=== PATIENT | female | born 1945 | race Caucasian/White ===

== ENCOUNTER 2016-05-27 21:29 | Emergency (ER) | END 2016-05-28 03:00 | disposition left against medical advice (07) | DX: Z53.21 Procedure and treatment not carried out due to patient leaving prior to being seen by health care provider (principal) ==

== ENCOUNTER 2016-05-29 09:26 | Inpatient (IN) | payer MEDICARE, BC ==
[~2016-05-29] VITALS: Ht 157.5 cm; Wt 60.6 kg
[~2016-05-29 09:26] MED LIST: AMLO-147 PO; APR50 PO; ASPI-664 PO; BIMA2.5D BOTH EYES; CALC667C PO; CLON-379 PO; DOCU100T PO; FLUO20CA22 PO; GABA100C14 PO; HYDR2TAB3 PO; LANT3I SC; LOSA50TA6 PO; METH500T8 PO; METO10TA92 PO; OMEP20CA16 PO; ONDA8TAB83 PO; SEVE800T7 PO
[2016-05-29] MEDS ORDERED: ACETAMINOPHEN 650MG/20.3ML CUP NGT STA (09:40)
[2016-05-29] MEDS ORDERED: SOD CHLORIDE 0.9% 500 ML IV ONE (10:00)
[2016-05-29 10:43] LABS: BASOPHILS % 0.1 % (0.0-2.0); EOSINOPHILS % 0.1 % (0.0-7.0); HEMATOCRIT 36.3 % (37.0-47.0); HEMOGLOBIN 12.4 g/dl (12.0-16.0); LYMPHOCYTES # 0.7 10^3/ul (0.8-2.9); LYMPHOCYTES % 4.9 % (15.0-51.0); MEAN CORPUSCULAR HEMOGLOBIN 31.4 pg (29.0-33.0); MEAN CORPUSCULAR HGB CONC 34.2 g/dl (32.0-37.0); MEAN CORPUSCULAR VOLUME 91.8 fl (82.0-101.0); MEAN PLATELET VOLUME 8.9 fl (7.4-10.4); MONOCYTE # 0.9 10^3/ul (0.3-0.9); MONOCYTES % 6.5 % (0.0-11.0); NEUTROPHIL # 12.7 10^3/ul (1.6-7.5); NEUTROPHILS % 88.4 % (39.0-77.0); PLATELET COUNT 425 10^3/UL (140-440); RED BLOOD COUNT 3.96 10^6/ul (4.20-5.40); RED CELL DISTRIBUTION WIDTH 16.6 % (11.5-14.5); UNCORRECTED WBC 14.4 10^3/ul (4.8-10.8); WHITE BLOOD COUNT 14.4 10^3/ul (4.8-10.8)
[2016-05-29 10:47] LABS: CONDITION 1; LH ANALYZER COMMENTS 1
[2016-05-29 10:48] LABS: ALBUMIN 4.5 g/dl (3.3-4.9)
[2016-05-29 10:49] LABS: POTASSIUM 5.2 mmol/L (3.5-5.1)
[2016-05-29 10:51] LABS: ALBUMIN/GLOBULIN RATIO 1.28; CREATININE 10.2 mg/dl (0.44-1.00)
[2016-05-29 10:52] LABS: CALCIUM 8.1 mg/dl (8.4-10.2); INR 1.08; PARTIAL THROMBOPLASTIN TIME 29.2 Sec (25.0-35.0); PT RATIO 1.1
--- NOTE | 2016-05-29 10:56 | RADRPT ---
PROCEDURE: XR Chest. CLINICAL INDICATION: Chest pain TECHNIQUE: Chest AP portable. COMPARISON: 09/15/2015 FINDINGS: The mediastinal structures are unremarkable. There is calcification of the thoracic aorta (consiste nt with atherosclerosis). There is mild cardiomegaly. There is mild pulmonary venous hypertension. No consolidation is identified. The pleural spaces are unremarkable. There are senescent changes of the axial skeleton. IMPRESSION: Mild cardiomegaly. Mild pulmonary venous hypertension. RPTAT: HGDB .Cecilio Fong MD, Date Time Electronically viewed and signed by .Cecilio Fong MD, on 05/29/2016 10:56 .B/
[2016-05-29 11:10] LABS: TROPONIN-I 0.134 ng/ml (0.00-0.12)
--- NOTE | 2016-05-29 11:31 | RADRPT ---
PROCEDURE: CT scan of the neck without contrast. CLINICAL INDICATION: Fever, throat pain TECHNIQUE: CT scan of the neck was performed. The patient was examined without the use of intrave nous iodinated contrast. No reported complications occurred. DOSE: CTDI = 11 mGy and the DLP = 257 mGy-cm. COMPARISON: None available FINDINGS: Evaluation of the soft tissues and vasculature is limited without contrast. No loculated fluid collection or cervical lymphadenopathy. The bilateral parotid and submandibular glands are grossly unremarkable No significant narrowing of the larynx The bilateral parapharyngeal spaces and retropharyngeal space s are unremarkable. The visualized paranasal sinuses and mastoids are clear. Multinodular thyroid gland with prominent enlargement of the left thyroid lobe. Endplate erosive changes are seen at C5-6. Mass-like consolidation measuring 6.0 x 4.6 cm in the medial right upper lobe with air bronchogram. There appears to be soft tissue infiltration into the right hilum/mediastinum. Additional prominen t mediastinal lymph nodes are identified. IMPRESSION: No gross loculated fluid collection or cervical lymphadenopathy on this noncontrast exam. Mass-like consolidation in the medial right upper lobe with air bronchogram. There appears to be so ft tissue infiltration into the right hilum/mediastinum. The findings are concerning for an underlyi ng right hilar/mediastinal mass with postobstructive consolidation. Recommend chest CT with contras t for further evaluation. Endplate erosive changes are seen at C5-6 which could be due to discogenic disease, however, osteomy elitis cannot be entirely excluded. If clinically warranted, consider MRI of the cervical spine wit h and without contrast for further evaluation. RPTAT: AA .Graham Florian MD, Date Time Electronically viewed and signed by .Graham Florian MD, MD on 05/29/2016 11:31 .T/
--- NOTE | 2016-05-29 12:45 | ERA ---
ER Documentation Chief Complaint Date/Time DATE: 05/29/16 TIME: 12:38 Chief Complaint sick x today HPI Patient is a 71-year-old female who reports a sore throat with odynophagia for the last 2-3 days. She had a low-grade fever yesterday. She saw her primary care physician who placed her on Augmentin yesterday. She took only 1 pill yesterday and has not taken it today. She comes in today because this morning when she awoke she had left-sided weakness of the upper extremity and lower extremity which was new. When she went to bed she was normal this was present upon awakening this morning. They do not know when the onset was. She denies any headache, visual changes, slurred speech, chest pain, shortness of breath, nausea, vomiting, abdominal pain, diarrhea, dysuria, or hematuria. She states that she had a stroke about 5-6 months ago which also affected the left side however she completely recovered from that stroke. These are very similar symptoms. On arrival here she is already improving. In regards to the sore throat and midline aphasia she cannot swallow solids but she can swallow liquids. It is making her feel somewhat short of breath however she is not in any respiratory distress. She has had a dry nonproductive cough as well. Here she is also experiencing a higher fever than yesterday. She is also a dialysis patient who is due for her dialysis as she missed it yesterday. Remainder of the systems are negative. ROS All systems reviewed and are negative except as per history of present illness. Medications Home Meds Active Scripts Metoclopramide* (Reglan*) 10 Mg Tablet, 10 MG PO AC MEALS AND BEDTIME Y for NAUSEA, #50 TAB Prov:OLGA LIDIA FENTON MD 09/24/15 Clonidine Hcl* (Clonidine Hcl*) 0.1 Mg Tab, 0.1 MG PO TID for 28 Days, TAB Prov:MICHELLE MCDANIEL MD 06/22/15 Hydralazine Hcl* (Hydralazine Hcl*) 50 Mg Tab, 50 MG PO TID, #180 TAB Prov:OLGA LIDIA FENTON MD 06/20/14 Reported Medications Sevelamer Carbonate* (Renvela*) 800 Mg Tablet, 0.8 GM PO WITH MEALS, TAB 09/15/15 Bimatoprost* (Lumigan*) 0.01%-2.5 Ml Opht Drops, 1 DROP BOTH EYES HS, EA 09/15/15 Hydromorphone Hcl* (Hydromorphone Hcl*) 2 Mg Tablet, 2 MG PO Q4H Y for PAIN, TAB 09/15/15 Methocarbamol* (Methocarbamol*) 500 Mg Tablet, 500 MG PO DAILY, TAB 09/15/15 Ondansetron Hcl* (Ondansetron Hcl*) 8 Mg Tablet, 8 MG PO Q6H Y for NAUSEA AND OR VOMITING, TAB 08/29/15 Calcium Acetate* (Calcium Acetate*) 667 Mg Capsule, 667 MG PO WITH MEALS, #30 CAP 08/29/15 Docusate Sodium* (Dok*) 100 Mg Tablet, 100 MG PO DAILY Y for CONSTIPATION, #30 CAP 08/29/15 Insulin Glargine* (Lantus*) 100 Unit/Ml Soln, 0-25 UNIT SC DAILY, #1 VIAL 08/29/15 Fluoxetine Hcl* (Fluoxetine Hcl*) 20 Mg Capsule, 20 MG PO DAILY 08/15/15 Losartan Potassium* (Losartan Potassium*) 50 Mg Tablet, 50 MG PO DAILY 08/15/15 Omeprazole* (Omeprazole*) 20 Mg Capsule.dr, 20 MG PO DAILY, #30 CAP 06/05/15 Amlodipine Besylate* (Amlodipine Besylate*) 10 Mg Tablet, 10 MG PO DAILY, #30 TAB 06/05/15 Gabapentin* (Gabapentin*) 100 Mg Capsule, 100 MG PO TID 08/08/13 Aspirin (Aspirin) 81 Mg Tablet.dr, 81 MG PO DAILY 11/26/12 Allergies Allergies: Coded Allergies: No Known Drug Allergies (Verified Allergy, Unknown, 09/19/15) PMhx/Soc History of Surgery: Yes (CATRACT SX) Anesthesia Reaction: No Hx Neurological Disorder: No Hx Respiratory Disorders: No Hx Cardiac Disorders: Yes (HTN) Hx Psychiatric Problems: Yes (DEPRESSION) Hx Miscellaneous Medical Probl: Yes (DM) Hx Alcohol Use: No Hx Substance Use: No Hx Tobacco Use: No Smoking Status: Never smoker FmHx Family History: coronary disease, diabetes Physical Exam Vitals Vital Signs Date Time Temp Pulse Resp B/P Pulse Ox O2 Delivery O2 Flow Rate FiO2 05/29/16 13:45 98.6 86 16 130/61 99 05/29/16 11:42 100.2 80 16 134/61 99 2.0 05/29/16 10:01 Nasal Cannula 2 05/29/16 09:30 102.4 90 20 158/68 99 Physical Exam Const: [] Well-developed well-nourished female lying on the bed appears chronically ill Head: Atraumatic normocephalic Eyes: Normal Conjunctiva ENT: Normal External Ears, Nose and Mouth., Posterior pharynx is slightly erythematous but I do not appreciate any significant edema or asymmetric swelling, she is tolerating her secretions, there is no purulence noted. Neck: Full range of motion..~ No meningismus. No lymphadenopathy Resp: Clear to auscultation bilaterally, poor inspiratory effort no tachypnea Cardio: Regular rate and rhythm, no murmurs Abd: Soft, non tender, non distended. Normal bowel sounds Skin: No petechiae or rashes Back: No midline or flank tenderness Ext: No cyanosis, or edema Neur: Awake and alert oriented 3, moves all extremities equally, cranial nerves II through XII are grossly intact, strength is 4 out of 5 and equal in both upper and lower extremities. It appears that her left-sided weakness has completely resolved Psych: Normal Mood and Affect Result Diagram: 05/29/16 0930 05/29/16 0930 Results 24 hrs Laboratory Tests Test 05/29/16 09:30 05/29/16 12:00 05/29/16 13:41 Activated Partial Thromboplast Time 29.2Sec Alanine Aminotransferase (ALT/SGPT) 21IU/L Albumin 4.5g/dl Albumin/Globulin Ratio 1.28 Alkaline Phosphatase 158IU/L Anion Gap 35 Aspartate Amino Transf (AST/SGOT) 33IU/L Basophils # 0.010^3/ul Basophils % 0.1% Blood Morphology Comment Blood Urea Nitrogen 91mg/dl Calcium Level 8.1mg/dl Carbon Dioxide Level 23mmol/L Chloride Level 85mmol/L Creatinine 10.20mg/dl Direct Bilirubin 0.00mg/dl Eosinophils # 0.010^3/ul Eosinophils % 0.1% Globulin 3.50g/dl Glucose Level 194mg/dl Hematocrit 36.3% Hemoglobin 12.4g/dl INR International Normalized Ratio 1.08 Indirect Bilirubin 0.0mg/dl Lactic Acid Level 1.4mmol/L 0.8mmol/L 0.9mmol/L Lymphocytes # 0.710^3/ul Lymphocytes % 4.9% Mean Corpuscular Hemoglobin 31.4pg Mean Corpuscular Hemoglobin Concent 34.2g/dl Mean Corpuscular Volume 91.8fl Mean Platelet Volume 8.9fl Monocytes # 0.910^3/ul Monocytes % 6.5% Monoscreen Negative Neutrophils # 12.710^3/ul Neutrophils % 88.4% Nucleated Red Blood Cells # 0.010^3/ul Nucleated Red Blood Cells % 0.0/100WBC Platelet Count 16512^3/UL Potassium Level 5.2mmol/L Prothrombin Time 14.0Sec Prothrombin Time Ratio 1.1 Red Blood Count 3.9610^6/ul Red Cell Distribution Width 16.6% Sodium Level 138mmol/L Total Bilirubin 0.0mg/dl Total Protein 8.0g/dl Troponin I 0.134ng/ml White Blood Count 14.410^3/ul Current Medications Medications (Trade) Dose Ordered Sig/Leanne Route PRN Reason Start Time Stop Time Status Last Admin Dose Admin Acetaminophen 650 mg 650 mg ONCE STAT NGT 05/29/16 09:40 05/29/16 09:42 DC 05/29/16 10:20 Sodium Chloride (NS) 500 ml @ 500 mls/hr Q1H ONCE IV 05/29/16 10:00 05/29/16 10:59 DC 05/29/16 10:[address] of her brain shows microangiopathic changes without any evidence of acute ischemia per the radiologist read Patient's CT of her chest shows a right upper lobe mass suspicious for neoplasm with right perihilar lymphadenopathy. Procedures/MDM EKG shows a normal sinus rhythm at approximately 90 bpm, there is slight QT prolongation, no evidence for acute ischemia noted, no old EKG available for comparison. Chest x-ray shows cardiomegaly without any obvious vascular congestion or infiltrate noted CT of the neck demonstrates no obvious masses or lymphadenopathy, no posterior swelling of the throat 1445: Patient is afebrile at this time. She does not exhibiting left-sided weakness. She is not exhibiting any acute respiratory distress. I have a call to Dr. Mcdaniel to admit her for her fever, right upper lobe mass, and renal failure. They can also further evaluate her for her possible TIA and difficulty swallowing. Departure Diagnosis: Primary Impression: Fever Qualified Code: R50.9 - Fever, unspecified fever cause Additional Impressions: Lung mass Renal failure Odynophagia Hypertension Qualified Code: I10 - Essential hypertension Condition: LOULOU Ibarra May 29, 2016 12:45
--- NOTE | 2016-05-29 13:28 | RADRPT ---
PROCEDURE: CT Brain without contrast. CLINICAL INDICATION: Trauma due to a fall. Left-sided weakness. TECHNIQUE: A CT of the brain without contrast was performed utilizing axial sections from the skul l base through the vertex. The patient was scanned without intravenous contrast enhancement. Sagitta l and coronal reformatted images were obtained using the data from the axial images. Total exam DLP is 720.23 mGy-cm. CTDIvol is 44.63 mGy. One or more of the following dose reduction techniques we re used: Automated exposure control, adjustment of the mA and/or kV according to patient size, use o f iterative reconstruction technique. COMPARISON: CT scan of the brain dated 06/30/2015. FINDINGS: There is normal [place]-white matter differentiation. There is enlargement of the ventricles and subarachnoid spaces consistent with atrophy. There is decreased attenuation of the periventricular white matter consistent with microangiopathic ischemic change. There is no intracranial hemorrhage or space-occupying lesion. There are vascular calcifications consistent with atherosclerosis. There is no skull fracture or lytic lesion. IMPRESSION: 1. Atrophy. 2. Microangiopathic ischemic change. 3. Atherosclerosis. 4. No intracranial hemorrhage. 5. Otherwise unremarkable noncontrast CT scan of the brain. RPTAT: QQ .Santosh Pugh MD, MD Date Time Electronically viewed and signed by .Santosh Pugh MD, on 05/29/2016 13:28 .R/
--- NOTE | 2016-05-29 14:21 | RADRPT ---
PROCEDURE: CT Chest Without Contrast CLINICAL INDICATION: Mass in chest TECHNIQUE: Volumetric acquisition of the thorax was performed without the intravenous administrati on of contrast. Radiation Dose: CTDI = 10.72 mGy; DLP = 374.80 mGy-cm. COMPARISON: None. FINDINGS: Lung payton: There is mass-like consolidation of the medial right upper lobe which contains air bron chograms and envelopes the anterior and apical segmental bronchi. This extends into the mediastinum just superior to the right mainstem bronchus. There is subsegmental atelectasis within the posteri or right upper lobe, within the lingular segment of the left upper lobe, and discoid atelectasis is seen within the lower lobes. A 3 mm calcified granuloma is seen in the left upper lobe. The pleural spaces: No effusion or pneumothorax is identified. Lymph nodes: There is a 1.2 cm in short diameter precarinal node and pretracheal nodes up to 9 mm in short diameter are identified. There is right hilar fullness suspicious for adenopathy measuring a pproximately 1.7 cm in short diameter. Cardiovascular structures: The heart is mildly enlarged and there is coronary artery disease. The a radha is normal in caliber with atherosclerotic change noted. Thyroid: There is a 3.5 x 2.2 cm nodule extending inferiorly and posteriorly off the left lobe of th e thyroid. Multiple coarse calcifications are seen within the right lobe and isthmus. Superior abdominal structures: No significant abnormality is evident. Osseous structures: There is anterior osteophytic bridging seen to the thoracic spine suspicious for diffuse idiopathic skeletal hyperostosis. IMPRESSION: 1. There is mass-like consolidation within the medial right upper lobe enveloping the right upper l obe anterior and apical segmental bronchi and extending into the mediastinum superior to the right m ainstem bronchus. This is suspicious for neoplasm. A 3 mm calcified granuloma is seen within the le ft upper lobe. 2. Precarinal, pretracheal and right hilar adenopathy. 3. Subsegmental atelectasis seen within the posterior aspect of the right upper lobe and within the lingular segment of the left upper lobe with discoid atelectasis seen in the lower lobes. 4. Mild cardiomegaly with atherosclerotic vascular changes. 5. 3.5 x 2.2 cm mass is seen extend inferiorly and posteriorly off the lower pole left lobe of the thyroid with coarse calcifications seen in the right lobe and isthmus. 6. Degenerative spine changes. Physician David Date Time Electronically viewed and signed by Meena Baugh Physician on 05/29/2016 14:21 RH/
[2016-05-29] MEDS ORDERED: ACETAMINOPHEN 325 MG TAB PO PRN (15:00)
[2016-05-29] MEDS ORDERED: ONDANSETRON 4 MG INJ IV PRN (15:00)
--- NOTE | 2016-05-29 17:29 | QN ---
Documentation Comment [id number] MICHELLE MCDANIEL MD May 29, 2016 17:29
[2016-05-29] MEDS ORDERED: DOCUSATE SODIUM 100 MG CAP PO PRN ×2 (18:00)
[2016-05-29] MEDS ORDERED: ONDANSETRON 4 MG TAB PO PRN (18:00)
[2016-05-29] MEDS ORDERED: BISACODYL (EC) 5 MG TAB PO PRN (18:00)
[2016-05-29] MEDS ORDERED: NACL 0.9% 3 ML SYG IV SCH (18:00)
[2016-05-29] MEDS ORDERED: MAGNESIUM HYDROXIDE 30ML CUP PO PRN (18:00)
[2016-05-29] MEDS ORDERED: ACETAMINOPHEN 650MG/20.3ML CUP ONE (18:23)
[2016-05-29] MEDS ORDERED: DEXTROSE 50% 50 ML SYRINGE IV PRN ×2 (19:00)
[2016-05-29] MEDS ORDERED: GLUCOSE GEL 15 GRAM TUBE BUCCAL PRN (19:00)
[2016-05-29] MEDS ORDERED: GLUCAGON 1 MG INJ IM PRN (19:00)
[2016-05-29] MEDS ORDERED: GLUCOSE GEL 15 GRAM TUBE PO PRN ×2 (19:00)
[2016-05-29] MEDS ORDERED: ACETAMINOPHEN 1000MG/100ML IV 100 ML IVPB ONE (19:00)
[2016-05-29] MEDS: ALBUTEROL/IPRATROPIUM (NEB) 3 ML AMP INH SCH (19:45)
--- NOTE | 2016-05-29 19:51 | HP ---
DATE OF ADMISSION: 05/29/2016 HISTORY OF PRESENT ILLNESS: Shelia Lipscomb is a 71-year-old female with a history of hematemesis, history of EGD, history of hypertension, ESRD. The patient has history of hypertension, dyslipidemia, diabetes mellitus, presented to this hospital with shortness of breath. Patient in the ER was seen. The patient's blood pressure was 157/78. Patient had a WBC 14.4, hematocrit 36.3, potassium 5.2, creatinine 10.20. Troponin 0.134 and patient is going to be monitored for further management. PAST MEDICAL HISTORY: As mentioned above. Upper gastrointestinal bleed, ESRD, hypertension, diabetes mellitus, dyslipidemia, and right upper extremity. ALLERGY HISTORY: NEGATIVE. FAMILY HISTORY: Negative. SOCIAL HISTORY: Per patient are negative. MEDICATION HISTORY: Patient is on: 1. Amlodipine. 2. Aspirin. 3. Eyedrops. 4. Calcium acetate. 5. Clonidine. 6. Docusate sodium. 7. Fluoxetine. 8. Gabapentin. 9. Hydralazine. 10. Hydromorphone. 11. Insulin. 12. Losartan. 13. Methocarbamol. 14. Reglan. 15. Omeprazole. 16. Zofran. 17. Renvela. REVIEW OF SYSTEMS: HEENT: Unremarkable. RESPIRATORY: Short of breath. CARDIOVASCULAR: No chest pain, palpitation. ABDOMEN: No hematemesis or melena. EXTREMITIES: On and off swelling. PHYSICAL EXAMINATION: GENERAL: The patient is awake, alert. VITAL SIGNS: Pulse 86, blood pressure 157/78. HEAD: Atraumatic, normocephalic. Pupils are equal, reactive to light. Pale conjunctivae positive, no icterus. NECK: Supple. LUNGS: Clear anteriorly with basilar rales. CARDIOVASCULAR: S1, S2 normal. Systolic murmur noted. ABDOMEN: Soft, distended, bowel sounds present. No palpable mass. EXTREMITIES: No cyanosis, clubbing. Edema positive. CENTRAL NERVOUS SYSTEM: The patient is awake, alert, no focal deficit. LABORATORY DATA: As mentioned above. The patient has a chest x-ray that shows mild pulmonary venous hypertension. The patient has a CT scan of the neck. No gross focal fluid collections. Mass-like consolidation of the medial right upper lobe with air bronchogram. Brain CT scan shows atrophy, microangiopathic ischemic changes, atherosclerosis. There is a CT chest shows there is a mass- like consolidation in the medial right upper lobe, cardiomegaly, DJD. IMPRESSION: 1. Patient has pneumonia. 2. Lung mass. 3. Pulmonary edema. 4. The patient has hypertension, diabetes mellitus, leukocytosis, , anemia, atherosclerotic heart disease, positive troponin. PLAN: To obtain cardiology consultation and pulmonary consultation. Oxygen, bronchodilator and antibiotics. Hemodialysis orders were done. Dictated By: MICHELLE MCDANIEL MD BS/NTS Conf#: [id number] DID#: [id number]
[2016-05-29 21:12] LABS: CK-MB 3.41 ng/ml (0.0-2.4)
[2016-05-29 21:21] LABS: TROPONIN-I 0.217 ng/ml (0.00-0.12)
[2016-05-29] MEDS: CALCIUM ACETATE 667 MG CAP PO SCH (21:23)
[2016-05-29] MEDS: LATANOPROST 0.005% 2.5 ML OPH BOTH EYES SCH (21:24)
[2016-05-29] MEDS: GABAPENTIN 100 MG CAP PO SCH (21:24)
[2016-05-29] MEDS: PIPER-TAZO 2.25 GM (PMX) 50 ML IVPB SCH (21:34)
[2016-05-29] MEDS: INSULIN ASPART [NOVOLOG] 3 ML PEN SC SCH (21:40)
[2016-05-29 21:46] VITALS: TEMP 99.7
[2016-05-29 22:20] VITALS: BP 117/64; PULSE 80; RESP 18
[2016-05-29 22:39] VITALS: Ht 157.5 cm; Wt 60.6 kg
[2016-05-29 22:44] VITALS: PULSE 81
[2016-05-30] VITALS (30 sets, daily range): BP systolic 110–198; BP diastolic 40–113; PULSE 80–123; RESP 19–20
[2016-05-30 01:49] LABS: CK-MB 4.06 ng/ml (0.0-2.4)
[2016-05-30] MEDS: ALBUTEROL/IPRATROPIUM (NEB) 3 ML AMP INH SCH ×4 (01:50→21:35)
[2016-05-30 02:00] LABS: TROPONIN-I 0.293 ng/ml (0.00-0.12)
[2016-05-30] MEDS: ACETAMINOPHEN 325 MG TAB PO PRN (02:17)
[2016-05-30] MEDS: PANTOPRAZOLE (EC) 40 MG TAB PO SCH (05:49)
[2016-05-30 08:00] LABS: HEMATOCRIT 32.4 % (37.0-47.0); HEMOGLOBIN 11.1 g/dl (12.0-16.0); LYMPHOCYTES # 0.4 10^3/ul (0.8-2.9); LYMPHOCYTES % 2.4 % (15.0-51.0); MEAN CORPUSCULAR HEMOGLOBIN 31.5 pg (29.0-33.0); MEAN CORPUSCULAR HGB CONC 34.4 g/dl (32.0-37.0); MEAN CORPUSCULAR VOLUME 91.8 fl (82.0-101.0); MEAN PLATELET VOLUME 8.5 fl (7.4-10.4); MONOCYTE # 0.6 10^3/ul (0.3-0.9); MONOCYTES % 3.6 % (0.0-11.0); NEUTROPHIL # 16.4 10^3/ul (1.6-7.5); PLATELET COUNT 303 10^3/UL (140-440); RED BLOOD COUNT 3.53 10^6/ul (4.20-5.40); RED CELL DISTRIBUTION WIDTH 16.2 % (11.5-14.5); UNCORRECTED WBC 17.5 10^3/ul (4.8-10.8); WHITE BLOOD COUNT 17.5 10^3/ul (4.8-10.8)
[2016-05-30 08:20] LABS: ALBUMIN 3.8 g/dl (3.3-4.9)
[2016-05-30 08:21] LABS: POTASSIUM 4.1 mmol/L (3.5-5.1)
[2016-05-30 08:23] LABS: ALBUMIN/GLOBULIN RATIO 1.18; CREATININE 8.01 mg/dl (0.44-1.00)
[2016-05-30 08:24] LABS: CALCIUM 8.2 mg/dl (8.4-10.2)
[2016-05-30 08:38] LABS: CONDITION 1; LH ANALYZER COMMENTS 1; SUSPECT 1
[2016-05-30] MEDS: AMLODIPINE 10 MG TAB PO SCH (09:00)
[2016-05-30] MEDS: LOSARTAN 50 MG TAB PO SCH (09:00)
[2016-05-30] MEDS ORDERED: ASPIRIN (EC) 81 MG TAB PO SCH (09:00)
[2016-05-30] MEDS: CALCIUM ACETATE 667 MG CAP PO SCH ×3 (09:01→17:12)
[2016-05-30] MEDS: SEVELAMER CARBONATE 0.8 GM PKT PO SCH ×3 (09:03→17:12)
[2016-05-30] MEDS: GABAPENTIN 100 MG CAP PO SCH ×3 (09:05→21:00)
[2016-05-30] MEDS: METHOCARBAMOL 500 MG TAB PO SCH (09:06)
[2016-05-30] MEDS: FLUOXETINE 20 MG CAP PO SCH (09:06)
[2016-05-30] MEDS: INSULIN ASPART [NOVOLOG] 3 ML PEN SC SCH ×4 (09:08→20:23)
[2016-05-30] MEDS ORDERED: hydrALAzine 20 MG INJ IV PRN (09:30)
[2016-05-30] MEDS ORDERED: GENTAMICIN 80 MG/NS (PMX) 50 ML IVPB ONE (10:30)
[2016-05-30] MEDS ORDERED: VANCOMYCIN 1 GM (PMX) 250 ML IVPB ONE (10:30)
[2016-05-30] MEDS: PIPER-TAZO 2.25 GM (PMX) 50 ML IVPB SCH ×3 (11:42→20:24)
[2016-05-30] MEDS: ENOXAPARIN 30 MG/0.3 ML SYG SC SCH (11:53)
[2016-05-30] MEDS: ACETAMINOPHEN 650 MG SUPP PR PRN ×2 (13:07→18:50)
--- NOTE | 2016-05-30 16:15 | PN ---
Date/Time of Note Date/Time of Note DATE: 05/30/16 TIME: 16:14 Assessment/Plan VTE Prophylaxis VTE Prophylaxis Intervention: other Lines/Catheters IV Catheter Type (from Nrs): Saline Lock Assessment/Plan Chief Complaint/Hosp Course IMPRESSION: 1. Patient has pneumonia. 2. Lung mass. 3. Pulmonary edema. 4. The patient has hypertension, diabetes mellitus, leukocytosis, , anemia, atherosclerotic heart disease, positive troponin. plan hd dr starkey called Problems: Subjective 24 Hr Interval Summary Respiratory: shortness of breath (better) Exam/Review of Systems Vital Signs Vitals Vital Signs Date Time Temp Pulse Resp B/P Pulse Ox O2 Delivery O2 Flow Rate FiO2 05/30/16 16:12 97 05/30/16 14:02 99.0 137/63 95 Nasal Cannula 2.0 05/30/16 13:55 20 Intake and Output 05/29/16 05/29/16 05/30/16 15:00 23:00 07:00 Intake Total 500 ml 740 ml Output Total 2500 ml Balance 500 ml -1760 ml Exam Respiratory: diminished breath sounds Cardiovascular: regular rate and rhythm Gastrointestinal: soft Musculoskeletal: nl extremities to inspection Extremities: normal pulses Results Result Diagram: 05/30/16 0710 05/30/16 0710 Results 24 hrs Laboratory Tests Test 05/29/16 18:19 05/29/16 20:30 05/29/16 21:33 05/30/16 00:40 Bedside Glucose 228 H 259 H Creatine Kinase 466 H 493 H Creatine Kinase Index 0.7 0.8 Creatinine Kinase MB (Mass) 3.41 H 4.06 H Troponin I 0.217 *H 0.293 *H Test 05/30/16 03:03 05/30/16 07:10 05/30/16 08:10 05/30/16 11:40 Bedside Glucose 195 177 188 Alanine Aminotransferase (ALT/SGPT) 23 Albumin 3.8 Albumin/Globulin Ratio 1.18 Alkaline Phosphatase 122 H Anion Gap 24 #H Aspartate Amino Transf (AST/SGOT) 42 Basophils # 0.0 Basophils % 0.0 Blood Morphology Comment Blood Urea Nitrogen 62 H Calcium Level 8.2 L Carbon Dioxide Level 26 Chloride Level 89 L Creatinine 8.01 #H Direct Bilirubin 0.00 Eosinophils # 0.0 Eosinophils % 0.0 Globulin 3.20 Glucose Level 188 Hematocrit 32.4 L Hemoglobin 11.1 L Indirect Bilirubin 0.0 Lymphocytes # 0.4 L Lymphocytes % 2.4 L Mean Corpuscular Hemoglobin 31.5 Mean Corpuscular Hemoglobin Concent 34.4 Mean Corpuscular Volume 91.8 Mean Platelet Volume 8.5 Monocytes # 0.6 Monocytes % 3.6 Neutrophils # 16.4 H Neutrophils % 94.0 H Nucleated Red Blood Cells # 0.0 Nucleated Red Blood Cells % 0.0 Platelet Count 303 # Potassium Level 4.1 Red Blood Count 3.53 L Red Cell Distribution Width 16.2 H Sodium Level 135 Total Bilirubin 0.0 L Total Protein 7.0 # White Blood Count 17.5 #H Medications Medications Current Medications Amlodipine Besylate (Norvasc) 10 mg DAILY PO ; Start 05/30/16 at 09:00 Aspirin (Halfprin) 81 mg DAILY PO Last administered on 05/30/16 09:03; Admin Dose 81 MG; Start 05/30/16 at 09:00 Latanoprost (Xalatan) 1 drop HS BOTH EYES Last administered on 05/29/16 21:24; Admin Dose 1 DROP; Start 05/29/16 at 21:00 Clonidine (Catapres) 0.1 mg TID PO Last administered on 05/30/16 13:08; Admin Dose 0.1 MG; Start 05/29/16 at 21:00 Fluoxetine HCl (Prozac) 20 mg DAILY PO Last administered on 05/30/16 09:06; Admin Dose 20 MG; Start 05/30/16 at 09:00 Gabapentin (Neurontin) 100 mg TID PO Last administered on 05/30/16 13:07; Admin Dose 100 MG; Start 05/29/16 at 21:00 Hydralazine HCl (Apresoline) 50 mg TID PO Last administered on 05/30/16 13:07; Admin Dose 50 MG; Start 05/29/16 at 21:00 Hydromorphone HCl (Dilaudid) 2 mg Q4H PRN PO PAIN; Start 05/29/16 at 18:00 Losartan Potassium (Cozaar) 50 mg DAILY PO ; Start 05/30/16 at 09:00 Methocarbamol (Robaxin) 500 mg DAILY PO Last administered on 05/30/16 09:06; Admin Dose 500 MG; Start 05/30/16 at 09:00 Ondansetron HCl (Zofran Tab) 8 mg Q6H PRN PO NAUSEA AND/OR VOMITING Last administered on 05/30/16 11:45; Admin Dose 8 MG; Start 05/29/16 at 18:00 Acetaminophen (Tylenol Tab) 650 mg Q6H PRN PO PAIN LEVEL 1-3 OR FEVER Last administered on 05/30/16 02:17; Admin Dose 650 MG; Start 05/29/16 at 18:00 Docusate Sodium (Colace) 100 mg Q12H PRN PO CONSTIPATION; Start 05/29/16 at 18: 00 Magnesium Hydroxide (Milk Of Mag) 30 ml DAILY PRN PO CONSTIPATION; Start at 18:00 Bisacodyl (Dulcolax) 5 mg DAILY PRN PO CONSTIPATION; Start 05/29/16 at 18:00 Pantoprazole (Protonix Tab) 40 mg DAILY@06 PO Last administered on 05/30/16 05: 49; Admin Dose 40 MG; Start 05/30/16 at 06:00 Enoxaparin Sodium 30 mg 30 mg DAILY SC Last administered on 05/30/16 11:53; Admin Dose 30 MG; Start 05/30/16 at 09:00 Piperacillin Sod/ Tazobactam Sod (Zosyn 2.25gm/ 50ml (Pmx)) 50 ml @ 100 mls/hr TID IVPB Last administered on 05/30/16 13:48; Admin Dose 100 MLS/HR; Start 05/29 at 21:00 Miscellaneous Information 1 ea NOTE XX ; Start 05/29/16 at 19:00 Glucose (Glutose) 15 gm Q15M PRN PO DECREASED GLUCOSE; Start 05/29/16 at 19:00 Glucose (Glutose) 22.5 gm Q15M PRN PO DECREASED GLUCOSE; Start 05/29/16 at 19:00 Dextrose (D50w Syringe) 25 ml Q15M PRN IV DECREASED GLUCOSE; Start 05/29/16 at 19:00 Dextrose (D50w Syringe) 50 ml Q15M PRN IV DECREASED GLUCOSE; Start 05/29/16 at 19:00 Glucagon (Glucagen) 1 mg Q15M PRN IM DECREASED GLUCOSE; Start 05/29/16 at 19:00 Glucose (Glutose) 15 gm Q15M PRN BUCCAL DECREASED GLUCOSE; Start 05/29/16 at 19: 00 Hydralazine HCl (Apresoline) 20 mg Q6H PRN IV sbp >170 Last administered on 05/30 09:21; Admin Dose 20 MG; Start 05/30/16 at 09:30 Acetaminophen (Tylenol Supp) 650 mg Q6H PRN [place] fever Last administered on 13:07; Admin Dose 650 MG; Start 05/30/16 at 10:30 MICHELLE MCDANIEL MD May 30, 2016 16:15
--- NOTE | 2016-05-30 17:34 | RADRPT ---
Echocardiogram Report Patient Name: KAVON PAL Gender: Female Date: 1945 Study Date: 30-May-2016 Agency Recruiter: Blake Glass [facility] Location: 5562 Ref. Physician: MICHELLE MCDANIEL Quality: Good Procedures: Transthoracic echocardiogram with complete 2D, M-Mode, and doppler examination. Indications: Coronary Artery Disease. 2D/M Mode Doppler Measurement Value Normal Ranges Measurement Value Normal Ranges LVIDd 2D 4.8 3.5 - 5.6 cm AV Mean Murali 1.7 m/sec LVIDs 2D 2.6 2.1 - 4.1 cm AV Mean PG 14.0 mmHg FS 2D 46.6 % AV Peak Murali 2.4 m/sec LVPWd 2D 1.0 0.6 - 1.1 cm AV Peak PG 23.0 mmHg IVSd 2D 1.0 0.6 - 1.1 cm AV VTI 41.1 cm IVS/LVPW 2D 0.9 LVOT Mean Murali 1.2 m/sec AoR Diam 2D 2.9 2.0 - 3.7 cm LVOT Mean PG 6.0 mmHg LA/Ao 2D 1 0 - 1 LVOT Peak Murali 1.6 m/sec EDV 2D 111.0 cm3 LVOT Peak PG 10.0 mmHg ESV 2D 17.0 cm3 LVOT VTI 28.4 cm LA Dimen 2D 3.6 2.3 - 4.0 cm MV E Peak Murali 0.9 m/sec MV A Peak Murali 1.4 m/sec MV E/A 0.6 MV Decel Time 77 msec MV E/A 0.6 TR Peak Murali 3.3 m/sec TR Peak PG 45.0 mmHg RVSP 48.0 mmHg Findings Left Ventricle: Normal left ventricular cavity size. Normal left ventricular wall thickness. Mild left ventricular systolic dysfunction. Ejection fraction is visually estimated at 45 %. Tissue Doppler/Mitral Doppler indices are consistent with impaired relaxation (Stage I diastolic dysfunction). These segments of the LV are hypokinetic mid septum segment and apical septum. Right Ventricle: Normal right ventricular size. Normal right ventricular systolic function. Left Atrium: The left atrium is normal in size. Right Atrium: The right atrium is normal in size. Mitral Valve: Mitral valve leaflets appear mildly thickened. Moderate mitral annular calcification. Mild mitral valve regurgitation. Aortic Valve: Aortic valve Max velocity 2.42 m/sec. Max PG 23.00 mmHg. Mean PG 14.00 mmHg. Aortic sclerosis without stenosis. Aortic cusps appear mildly calcified. Trace aortic valve regurgitation. Tricuspid Valve: Normal appearance of the tricuspid valve. Estimated peak PA systolic pressure 48 mmHg. There is mild tricuspid regurgitation. Pericardium: Normal pericardium with no significant pericardial effusion. Aorta: Normal aortic root. IVC: Normal size and normal respiratory collapse consistent with normal right atrial pressure. Conclusions 1.Normal left ventricular cavity size. Normal left ventricular wall thickness. Mild left ventricular systolic dysfunction. Ejection fraction is visually estimated at 45 %. Tissue Doppler/Mitral Doppler indices are consistent with impaired relaxation (Stage I diastolic dysfunction). These segments of the LV are hypokinetic mid septum segment and apical septum. 2.Mild mitral valve regurgitation. 3.Aortic sclerosis without stenosis. Trace aortic valve regurgitation. 4.Normal appearance of the tricuspid valve. Estimated peak PA systolic pressure 48 mmHg. There is mild tricuspid regurgitation. Electronically Signed By: Arnaldo Salcedo 30-May-2016 17:33:44 -0800 Patient Name: KAVON PAL Study Date: 30-May-2016 [id number]
--- NOTE | 2016-05-30 18:25 | CONS ---
DATE OF ADMISSION: 05/29/2016 DATE OF CONSULTATION: 05/30/2016 REASON FOR CONSULTATION: Abnormal chest CT. Thank you, Dr. Becerra, for this consultation. HISTORY OF PRESENT ILLNESS: This is a 71-year-old lady who presents with several-day history of inc reasing shortness of breath, orthopnea, PND, cough with questionable hemoptysis, found to have low g rade fevers. Previously started on Augmentin for possible URI. CT of the chest was performed which shows a right upper lobe mass extending toward the mediastinum concerning for possible malignancy. In addition, she has precarinal and pretracheal right hilar adenopathy. PAST MEDICAL HISTORY: 1. End-stage renal failure on hemodialysis. 2. Hypertension. 3. Hyperlipidemia. 4. Depression. MEDICATIONS: Per chart. ALLERGIES: NONE. SOCIAL HISTORY: She is a nonsmoker, no alcohol, no history of drug use. FAMILY HISTORY: Coronary artery disease and diabetes. PHYSICAL EXAMINATION: GENERAL: Elderly-appearing lady, appears comfortable at rest, no acute distress. VITAL SIGNS: Currently afebrile, pulse is 100, T-max was 103.1, blood pressure 137/63, O2 saturatio n 96% on 2 L nasal cannula. NECK: Supple. No JVD or lymphadenopathy. CARDIAC: S1, S2, no added sounds or murmurs. CHEST: Diminished air entry bilaterally. ABDOMEN: Soft, nontender. No guarding or rebound. EXTREMITIES: No cyanosis, clubbing, edema. NEUROLOGIC: Grossly intact. No focal deficits. LABORATORY DATA: White count 17.5, hemoglobin 11.1, platelets of 303. Chemistry: BUN 62, creatini ne 8.01. INR 1.018. IMPRESSION AND PLAN: Right upper lobe dense consolidation enveloping right upper lobe anteriorly an d apical segments concerning for possible neoplasm. The patient will require: 1. CT-guided biopsy of the lesion which I have requested. 2. Stop aspirin pending biopsy. 3. Continue broad-spectrum antibiotic coverage for likely postobstructive pneumonia. 4. Continue DVT and GI prophylaxis. 5. Continue hemodialysis with volume removal. Dictated By: EHSAN MENDIOLA/YAHIR Conf#: [id number] DID#: [id number]
--- NOTE | 2016-05-30 18:54 | CONS ---
DATE OF ADMISSION: 05/29/2016 DATE OF CONSULTATION: 05/30/2016 TYPE OF CONSULTATION: Cardiology. REASON FOR CONSULTATION: Abnormal electrocardiogram, assess for acute coronary syndrome and shortness of breath, assess for congestive heart failure. REQUESTING PHYSICIAN: Dano Mcdaniel MD HISTORY OF PRESENT ILLNESS: Mr. Lipscomb is a very pleasant 71-year-old female with a history of hypertension, psychiatric disorder, diabetes mellitus, prior GI bleed, end-stage renal disease, dyslipidemia, who presented with complaints of shortness of breath, associated cough at home. Upon arrival initially in the emergency department, temperature of 102.4, blood pressure 158/68, pulse 90 , respiratory rate 20, saturating 99%. The patient's labs white blood cell count 14.4, hemoglobin 12.4, platelet count 425. Sodium 138, potassium 5.2, creatinine 10.2, BUN 91. Troponin positive at 0.134. INR of 1.0. The patient underwent a chest x-ray revealing mild cardiomegaly and pulmonary venous hypertension. A neck CT revealing no gross loculated fluid collections or cervical lymphadenopathy, mass-like consolidation in the medial right upper lobe with air bronchogram, a soft tissue infiltration into right hilar mediastinum with postobstructive consolidation and changes C5-C6. The patient underwent a head CT revealing atrophy, microangiopathic ischemic changes , atherosclerosis and a chest CT revealing a mass-like consolidation in the medial right upper lobe involving the right upper lobe, right hilar and pretracheal hilar adenopathy, mild cardiomegaly, 3.5 x 2.2 mass seen on the lower pole of the left lobe of the thyroid, and degenerative changes of the spine. The patient's electrocardiogram, normal sinus rhythm, rate of 89 with left axis deviation, nonspecific ST-T wave abnormalities, flattening in lead aVL. The patient subsequently has been admitted to the floor and since admit to the floor, has had labile blood pressures and continues to have high fevers, most recently of 103 this morning. The patient at this time complaints of shortness of breath, cough, intermittent chest pain. PAST MEDICAL HISTORY: As above in HPI. MEDICATIONS CURRENTLY IN HOSPITAL: 1. Tylenol p.r.n. 2. Hydralazine p.r.n. 3. Norvasc 10 mg daily. 4. Prozac 20 mg daily. 5. Cozaar 50 mg daily. 6. Lovenox 30 mg subcu daily. 7. Clonidine 0.1 mg p.o. t.i.d. 8. Gabapentin 100 mg t.i.d. 9. Hydralazine 50 mg t.i.d. 10. Zosyn. 11. DuoNebs. 12. PhosLo. 9. Dilaudid p.r.n. 10. Zofran p.r.n. 11. Mucous Milk of magnesia p.r.n. ALLERGIES: NO KNOWN DRUG ALLERGIES. SOCIAL HISTORY: No tobacco, ETOH or illicit drug use. FAMILY HISTORY: Negative for sudden cardiac or early CAD. REVIEW OF SYSTEMS: As above in HPI. CONSTITUTIONAL: Positive fevers, chills. PULMONARY: Shortness of breath. CARDIOVASCULAR: Intermittent chest pain, tachycardia. GASTROINTESTINAL: No vomiting. GENITOURINARY: No hematuria. MUSCULOSKELETAL: Degenerative joint disease. PSYCHIATRIC: Positive psychiatric medication. NEUROLOGIC: No documented history of CVA. PHYSICAL EXAMINATION VITAL SIGNS: Temperature T-current 99, T-max 103.1, blood pressure most recently 137/63, pulse 95, sating 95% on 2 liters. GENERAL: The patient is alert, awake, complaining of cough, shortness of breath. NECK: JVP approximately 9 cm water. CHEST: Bibasilar crackles. HEART: Tachycardic, regular rhythm, normal S1, S2, I/ systolic murmur, nondisplaced PMI. ABDOMEN: Positive bowel sounds, soft. EXTREMITIES: No pitting edema, 1+ pulses bilaterally, posterior tibial. LABORATORY DATA: Most recent from today, sodium 135, potassium 4.1, creatinine of 8.0, BUN 62. AST 42, ALT 23. White blood count 17.5, hemoglobin 11.1, platelet count 303. INR of 1.0. IMAGING STUDIES: As above in HPI. No further imaging studies for my review at this time. ELECTROCARDIOGRAM: As above in HPI. No further electrocardiograms for my review at this time. IMPRESSION: 1. Positive troponin, assess significance. Assess for acute coronary syndrome. 2. Shortness of breath, assess for congestive heart failure. 3. Abnormal electrocardiogram. Assess for acute coronary syndrome. 4. Pneumonia by chest x-ray and chest CT. 5. Chest mass and hilar lymphadenopathy. 6. End-stage renal disease on hemodialysis. 7. Leukocytosis. 8. Anemia. RECOMMENDATIONS: 1. At this time, would maintain patient on telemetry monitoring to follow rhythm and rate control closely. 2. We will continue to trend the patient's cardiac enzymes to assess for any significant ongoing cardiac damage and check a 2D echocardiogram to further assess patient's ejection fraction, wall motion and any major valve abnormalities. 3. Continue the patient's Lovenox and initiate patient on an aspirin in the setting of positive troponins. 4. Continue the patient's antihypertensives at this time with Norvasc, Cozaar, hydralazine and will consider initiation of beta martine in the setting of positive troponins. 5. Check a fasting lipid panel for general risk stratification. 6. Continue the patient's broad-spectrum antibiotics and follow up all culture data. 7. Check a BNP to further assess the patient's current volume status. 8. Hemodialysis for volume removal. Thank you for allowing me to take part in the care of this patient. I will continue to follow along very closely with you with further recommendations to be made as the patient progresses through her inpatient hospital clinical course. Dictated By: ANNAMARIE COLLAZO/YAHIR Conf#: [id number] DID#: [id number] CC: DANO MCDANIEL MD;*EndCC* MTDD
[2016-05-30] MEDS ORDERED: ONDANSETRON INJ 8 MG in DEXTROSE 5% 50 ML IV PRN (19:00)
[2016-05-30] MEDS: ONDANSETRON 4 MG INJ IV PRN (20:16)
[2016-05-30] MEDS: LATANOPROST 0.005% 2.5 ML OPH BOTH EYES SCH (20:24)
[2016-05-30] MEDS: METOPROLOL 25 MG TAB PO SCH (21:00)
[2016-05-30] MEDS ORDERED: TOBRAMYCIN IV PER PHARMACY XX SCH (23:30)
[2016-05-30] MEDS: DEXTROSE 5%-0.45% NACL 1,000 ML IV SCH (23:47)
[2016-05-31] VITALS (19 sets, daily range): BP systolic 110–195; BP diastolic 52–88; PULSE 96–118; RESP 18–20
[2016-05-31] MEDS: ACETAMINOPHEN 650 MG SUPP PR PRN ×3 (00:47→17:39)
[2016-05-31] MEDS: ALBUTEROL/IPRATROPIUM (NEB) 3 ML AMP INH SCH ×4 (01:08→20:02)
[2016-05-31] MEDS: PANTOPRAZOLE (EC) 40 MG TAB PO SCH (05:34)
[2016-05-31] MEDS: ONDANSETRON 4 MG INJ IV PRN ×2 (05:37→17:39)
[2016-05-31 08:45] LABS: ALBUMIN 3.8 g/dl (3.3-4.9)
[2016-05-31 08:46] LABS: POTASSIUM 5.5 mmol/L (3.5-5.1)
[2016-05-31 08:48] LABS: ALBUMIN/GLOBULIN RATIO 0.95; CREATININE 7.27 mg/dl (0.44-1.00); TOTAL PROTEIN 7.8 g/dl (6.1-8.1)
[2016-05-31 08:49] LABS: CALCIUM 8.8 mg/dl (8.4-10.2)
[2016-05-31] MEDS: METOPROLOL 25 MG TAB PO SCH ×2 (09:00→21:26)
[2016-05-31] MEDS: AMLODIPINE 10 MG TAB PO SCH (09:00)
[2016-05-31] MEDS: LOSARTAN 50 MG TAB PO SCH (09:00)
[2016-05-31] MEDS: SEVELAMER CARBONATE 0.8 GM PKT PO SCH ×3 (09:04→17:26)
[2016-05-31] MEDS: CALCIUM ACETATE 667 MG CAP PO SCH ×3 (09:04→17:26)
[2016-05-31] MEDS: INSULIN ASPART [NOVOLOG] 3 ML PEN SC SCH ×4 (09:06→21:30)
[2016-05-31] MEDS: PIPER-TAZO 2.25 GM (PMX) 50 ML IVPB SCH ×3 (09:06→21:29)
[2016-05-31] MEDS: ASPIRIN 81 MG TAB PO SCH (09:07)
[2016-05-31] MEDS: METHOCARBAMOL 500 MG TAB PO SCH (09:08)
[2016-05-31] MEDS: ENOXAPARIN 30 MG/0.3 ML SYG SC SCH (09:08)
[2016-05-31] MEDS: GABAPENTIN 100 MG CAP PO SCH ×3 (09:08→21:26)
[2016-05-31] MEDS: FLUOXETINE 20 MG CAP PO SCH (09:09)
[2016-05-31 09:31] LABS: CHOL/HDL RATIO 4.5 RATIO
[2016-05-31 09:37] LABS: HEMATOCRIT 36.3 % (37.0-47.0); HEMOGLOBIN 12.6 g/dl (12.0-16.0); RED BLOOD COUNT 4.01 10^6/ul (4.20-5.40); UNCORRECTED WBC 22.4 10^3/ul (4.8-10.8); WHITE BLOOD COUNT 22.4 10^3/ul (4.8-10.8)
[2016-05-31 09:38] LABS: BASOPHIL # 0.1 10^3/ul (0.0-0.1); BASOPHILS % 0.4 % (0.0-2.0); LYMPHOCYTES # 0.4 10^3/ul (0.8-2.9); LYMPHOCYTES % 1.7 % (15.0-51.0); MEAN CORPUSCULAR HEMOGLOBIN 31.4 pg (29.0-33.0); MEAN CORPUSCULAR HGB CONC 34.7 g/dl (32.0-37.0); MEAN CORPUSCULAR VOLUME 90.5 fl (82.0-101.0); MEAN PLATELET VOLUME 11.1 fl (7.4-10.4); MONOCYTE # 0.4 10^3/ul (0.3-0.9); MONOCYTES % 1.9 % (0.0-11.0); NEUTROPHIL # 21.3 10^3/ul (1.6-7.5); NEUTROPHILS % 94.9 % (39.0-77.0); PLATELET COUNT 273 10^3/UL (140-440); RED CELL DISTRIBUTION WIDTH 15.7 % (11.5-14.5)
[2016-05-31 09:40] LABS: CK-MB 3.34 ng/ml (0.0-2.4)
[2016-05-31 10:16] LABS: TROPONIN-I 0.539 ng/ml (0.00-0.12)
--- NOTE | 2016-05-31 12:10 | PN ---
Date/Time of Note Date/Time of Note DATE: 05/31/16 TIME: 12:08 Assessment/Plan VTE Prophylaxis VTE Prophylaxis Intervention: other Lines/Catheters IV Catheter Type (from Nrs): Peripheral IV Assessment/Plan Chief Complaint/Hosp Course IMPRESSION: 1. Patient has pneumonia. 2. Lung mass. 3. Pulmonary edema. 4. The patient has hypertension, diabetes mellitus, leukocytosis, , anemia, atherosclerotic heart disease, positive troponin. [address] starkey called antibioti Problems: Subjective 24 Hr Interval Summary Cardiovascular: no complaints Gastrointestinal: no complaints Exam/Review of Systems Vital Signs Vitals Vital Signs Date Time Temp Pulse Resp B/P Pulse Ox O2 Delivery O2 Flow Rate FiO2 05/31/16 12:07 96 05/31/16 10:37 2.0 05/31/16 09:04 99.7 05/31/16 08:13 20 98 Nasal Cannula 05/31/16 07:25 165/77 Intake and Output 05/30/16 05/30/16 05/31/16 15:00 23:00 07:00 Intake Total 790 ml 120 ml Output Total 2500 ml 2000 ml Balance -1710 ml -1880 ml Exam Neck: supple Respiratory: diminished breath sounds Gastrointestinal: bowel sounds (+), soft Extremities: edema (+) Results Result Diagram: 05/31/16 0708 05/31/16 0700 Results 24 hrs Laboratory Tests Test 05/30/16 17:05 05/30/16 20:23 05/31/16 07:00 05/31/16 07:08 Bedside Glucose 175 169 Alanine Aminotransferase (ALT/SGPT) 32 Albumin 3.8 Albumin/Globulin Ratio 0.95 Alkaline Phosphatase 104 Anion Gap 33 #H Aspartate Amino Transf (AST/SGOT) 109 H Blood Urea Nitrogen 55 H Calcium Level 8.8 Carbon Dioxide Level 22 Chloride Level 91 L Cholesterol Level 167 Cholesterol/HDL Ratio 4.5 Creatine Kinase 1120 #H Creatine Kinase Index 0.3 Creatinine 7.27 H Creatinine Kinase MB (Mass) 3.34 H Direct Bilirubin 0.00 Globulin 4.00 H Glucose Level 230 H HDL Cholesterol 37 Indirect Bilirubin 0.0 LDL Cholesterol, Calculated 86 Potassium Level 5.5 H Sodium Level 140 Total Bilirubin 0.0 L Total Protein 7.8 Triglycerides Level 218 H Troponin I 0.539 *H Basophils # 0.1 Basophils % 0.4 Eosinophils # 0.0 Eosinophils % 0.0 Hematocrit 36.3 L Hemoglobin 12.6 Lymphocytes # 0.4 L Lymphocytes % 1.7 L Mean Corpuscular Hemoglobin 31.4 Mean Corpuscular Hemoglobin Concent 34.7 Mean Corpuscular Volume 90.5 Mean Platelet Volume 11.1 #H Monocytes # 0.4 Monocytes % 1.9 Neutrophils # 21.3 H Neutrophils % 94.9 H Nucleated Red Blood Cells # 0.0 Nucleated Red Blood Cells % 0.0 Platelet Count 273 Red Blood Count 4.01 L Red Cell Distribution Width 15.7 H White Blood Count 22.4 #H Test 05/31/16 07:33 Bedside Glucose 253 H Medications Medications Current Medications Amlodipine Besylate (Norvasc) 10 mg DAILY PO ; Start 05/30/16 at 09:00 Latanoprost (Xalatan) 1 drop HS BOTH EYES Last administered on 05/30/16 20:24; Admin Dose 1 DROP; Start 05/29/16 at 21:00 Clonidine (Catapres) 0.1 mg TID PO Last administered on 05/30/16 13:08; Admin Dose 0.1 MG; Start 05/29/16 at 21:00 Fluoxetine HCl (Prozac) 20 mg DAILY PO Last administered on 05/31/16 09:09; Admin Dose 20 MG; Start 05/30/16 at 09:00 Gabapentin (Neurontin) 100 mg TID PO Last administered on 05/31/16 09:08; Admin Dose 100 MG; Start 05/29/16 at 21:00 Hydralazine HCl (Apresoline) 50 mg TID PO Last administered on 05/30/16 13:07; Admin Dose 50 MG; Start 05/29/16 at 21:00 Hydromorphone HCl (Dilaudid) 2 mg Q4H PRN PO PAIN; Start 05/29/16 at 18:00 Losartan Potassium (Cozaar) 50 mg DAILY PO ; Start 05/30/16 at 09:00 Methocarbamol (Robaxin) 500 mg DAILY PO Last administered on 05/31/16 09:08; Admin Dose 500 MG; Start 05/30/16 at 09:00 Acetaminophen (Tylenol Tab) 650 mg Q6H PRN PO PAIN LEVEL 1-3 OR FEVER Last administered on 05/30/16 02:17; Admin Dose 650 MG; Start 05/29/16 at 18:00 Docusate Sodium (Colace) 100 mg Q12H PRN PO CONSTIPATION; Start 05/29/16 at 18: 00 Magnesium Hydroxide (Milk Of Mag) 30 ml DAILY PRN PO CONSTIPATION; Start at 18:00 Bisacodyl (Dulcolax) 5 mg DAILY PRN PO CONSTIPATION; Start 05/29/16 at 18:00 Pantoprazole (Protonix Tab) 40 mg DAILY@06 PO Last administered on 05/30/16 05: 49; Admin Dose 40 MG; Start 05/30/16 at 06:00 Enoxaparin Sodium 30 mg 30 mg DAILY SC Last administered on 05/31/16 09:08; Admin Dose 30 MG; Start 05/30/16 at 09:00 Piperacillin Sod/ Tazobactam Sod (Zosyn 2.25gm/ 50ml (Pmx)) 50 ml @ 100 mls/hr TID IVPB Last administered on 05/31/16 09:06; Admin Dose 100 MLS/HR; Start 05/29 at 21:00 Miscellaneous Information 1 ea NOTE XX ; Start 05/29/16 at 19:00 Glucose (Glutose) 15 gm Q15M PRN PO DECREASED GLUCOSE; Start 05/29/16 at 19:00 Glucose (Glutose) 22.5 gm Q15M PRN PO DECREASED GLUCOSE; Start 05/29/16 at 19:00 Dextrose (D50w Syringe) 25 ml Q15M PRN IV DECREASED GLUCOSE; Start 05/29/16 at 19:00 Dextrose (D50w Syringe) 50 ml Q15M PRN IV DECREASED GLUCOSE; Start 05/29/16 at 19:00 Glucagon (Glucagen) 1 mg Q15M PRN IM DECREASED GLUCOSE; Start 05/29/16 at 19:00 Glucose (Glutose) 15 gm Q15M PRN BUCCAL DECREASED GLUCOSE; Start 05/29/16 at 19: 00 Hydralazine HCl (Apresoline) 20 mg Q6H PRN IV sbp >170 Last administered on 05/30 09:21; Admin Dose 20 MG; Start 05/30/16 at 09:30 Acetaminophen (Tylenol Supp) 650 mg Q6H PRN [place] fever Last administered on 09:11; Admin Dose 650 MG; Start 05/30/16 at 10:30 Metoprolol Tartrate (Lopressor) 25 mg BID PO ; Start 05/30/16 at 21:00 Aspirin 81 mg 81 mg DAILY PO Last administered on 05/31/16 09:07; Admin Dose 81 MG; Start 05/31/16 at 09:00 Ondansetron HCl/ Dextrose (Zofran Inj/D5W) 54 ml @ 108 mls/hr Q6H PRN IV NAUSEA AND/OR VOMITING; Start 05/30/16 at 19:00 Ondansetron HCl (Zofran Inj) 4 mg Q6H PRN IV NAUSEA AND/OR VOMITING Last administered on 05/31/16 05:37; Admin Dose 4 MG; Start 05/30/16 at 19:30 Tobramycin TOBRAMYCIN PER PHARMACY NOTE XX ; Start 05/30/16 at 23:30 Dextrose/Sodium Chloride (D5-1/2ns) 1,000 ml @ 40 mls/hr Q24H IV Last administered on 05/30/16 23:47; Admin Dose 40 MLS/HR; Start 05/30/16 at 23:30 MICHELLE MCDANIEL MD May 31, 2016 12:10
[2016-05-31 13:20] LABS: POTASSIUM 4.8 mmol/L (3.5-5.1)
[2016-05-31 13:22] LABS: CREATININE 7.65 mg/dl (0.44-1.00)
[2016-05-31 13:23] LABS: CALCIUM 8.4 mg/dl (8.4-10.2)
--- NOTE | 2016-05-31 15:21 | CONS ---
Date/Time of Note Date/Time of Note DATE: 05/31/16 TIME: 15:19 Consult Date/Type/Reason Admit Date/Time May 29, 2016 at 14:54 Initial Consult Date Type of Consultation: Pulmonary Subjective Comfortable Objective Vital Signs Date Time Temp Pulse Resp B/P Pulse Ox O2 Delivery O2 Flow Rate FiO2 05/31/16 15:00 111 05/31/16 14:17 20 98 Nasal Cannula 3.0 05/31/16 11:00 98.6 123/58 Intake and Output 05/30/16 05/30/16 05/31/16 15:00 23:00 07:00 Intake Total 790 ml 120 ml Output Total 2500 ml 2000 ml Balance -1710 ml -1880 ml PHYSICAL EXAMINATION: GENERAL: Elderly-appearing lady, appears comfortable at rest, no acute distress. VITAL SIGNS: As above. NECK: Supple. No JVD or lymphadenopathy. CARDIAC: S1, S2, no added sounds or murmurs. CHEST: Diminished air entry bilaterally. ABDOMEN: Soft, nontender. No guarding or rebound. EXTREMITIES: No cyanosis, clubbing, edema. NEUROLOGIC: Grossly intact. No focal deficits. Results/Medications Result Diagram: 05/31/16 0708 05/31/16 1300 Results 24 hrs Laboratory Tests Test 05/30/16 17:05 05/30/16 20:23 05/31/16 07:00 05/31/16 07:08 Bedside Glucose 175 169 Alanine Aminotransferase (ALT/SGPT) 32 Albumin 3.8 Albumin/Globulin Ratio 0.95 Alkaline Phosphatase 104 Anion Gap 33 #H Aspartate Amino Transf (AST/SGOT) 109 H Blood Urea Nitrogen 55 H Calcium Level 8.8 Carbon Dioxide Level 22 Chloride Level 91 L Cholesterol Level 167 Cholesterol/HDL Ratio 4.5 Creatine Kinase 1120 #H Creatine Kinase Index 0.3 Creatinine 7.27 H Creatinine Kinase MB (Mass) 3.34 H Direct Bilirubin 0.00 Globulin 4.00 H Glucose Level 230 H HDL Cholesterol 37 Indirect Bilirubin 0.0 LDL Cholesterol, Calculated 86 Potassium Level 5.5 H Sodium Level 140 Total Bilirubin 0.0 L Total Protein 7.8 Triglycerides Level 218 H Troponin I 0.539 *H Basophils # 0.1 Basophils % 0.4 Eosinophils # 0.0 Eosinophils % 0.0 Hematocrit 36.3 L Hemoglobin 12.6 Lymphocytes # 0.4 L Lymphocytes % 1.7 L Mean Corpuscular Hemoglobin 31.4 Mean Corpuscular Hemoglobin Concent 34.7 Mean Corpuscular Volume 90.5 Mean Platelet Volume 11.1 #H Monocytes # 0.4 Monocytes % 1.9 Neutrophils # 21.3 H Neutrophils % 94.9 H Nucleated Red Blood Cells # 0.0 Nucleated Red Blood Cells % 0.0 Platelet Count 273 Red Blood Count 4.01 L Red Cell Distribution Width 15.7 H White Blood Count 22.4 #H Test 05/31/16 07:33 05/31/16 12:34 05/31/16 13:00 Bedside Glucose 253 H 199 Anion Gap 27 H Blood Urea Nitrogen 59 H Calcium Level 8.4 Carbon Dioxide Level 25 Chloride Level 92 L Creatinine 7.65 H Glucose Level 216 Potassium Level 4.8 Sodium Level 139 Medications Current Medications Amlodipine Besylate (Norvasc) 10 mg DAILY PO ; Start 05/30/16 at 09:00 Latanoprost (Xalatan) 1 drop HS BOTH EYES Last administered on 05/30/16 20:24; Admin Dose 1 DROP; Start 05/29/16 at 21:00 Clonidine (Catapres) 0.1 mg TID PO Last administered on 05/30/16 13:08; Admin Dose 0.1 MG; Start 05/29/16 at 21:00 Fluoxetine HCl (Prozac) 20 mg DAILY PO Last administered on 05/31/16 09:09; Admin Dose 20 MG; Start 05/30/16 at 09:00 Gabapentin (Neurontin) 100 mg TID PO Last administered on 05/31/16 12:34; Admin Dose 100 MG; Start 05/29/16 at 21:00 Hydralazine HCl (Apresoline) 50 mg TID PO Last administered on 05/30/16 13:07; Admin Dose 50 MG; Start 05/29/16 at 21:00 Hydromorphone HCl (Dilaudid) 2 mg Q4H PRN PO PAIN; Start 05/29/16 at 18:00 Losartan Potassium (Cozaar) 50 mg DAILY PO ; Start 05/30/16 at 09:00 Methocarbamol (Robaxin) 500 mg DAILY PO Last administered on 05/31/16 09:08; Admin Dose 500 MG; Start 05/30/16 at 09:00 Acetaminophen (Tylenol Tab) 650 mg Q6H PRN PO PAIN LEVEL 1-3 OR FEVER Last administered on 05/30/16 02:17; Admin Dose 650 MG; Start 05/29/16 at 18:00 Docusate Sodium (Colace) 100 mg Q12H PRN PO CONSTIPATION; Start 05/29/16 at 18: 00 Magnesium Hydroxide (Milk Of Mag) 30 ml DAILY PRN PO CONSTIPATION; Start at 18:00 Bisacodyl (Dulcolax) 5 mg DAILY PRN PO CONSTIPATION; Start 05/29/16 at 18:00 Pantoprazole (Protonix Tab) 40 mg DAILY@06 PO Last administered on 05/30/16 05: 49; Admin Dose 40 MG; Start 05/30/16 at 06:00 Enoxaparin Sodium 30 mg 30 mg DAILY SC Last administered on 05/31/16 09:08; Admin Dose 30 MG; Start 05/30/16 at 09:00 Piperacillin Sod/ Tazobactam Sod (Zosyn 2.25gm/ 50ml (Pmx)) 50 ml @ 100 mls/hr TID IVPB Last administered on 05/31/16 12:40; Admin Dose 100 MLS/HR; Start 05/29 at 21:00 Miscellaneous Information 1 ea NOTE XX ; Start 05/29/16 at 19:00 Glucose (Glutose) 15 gm Q15M PRN PO DECREASED GLUCOSE; Start 05/29/16 at 19:00 Glucose (Glutose) 22.5 gm Q15M PRN PO DECREASED GLUCOSE; Start 05/29/16 at 19:00 Dextrose (D50w Syringe) 25 ml Q15M PRN IV DECREASED GLUCOSE; Start 05/29/16 at 19:00 Dextrose (D50w Syringe) 50 ml Q15M PRN IV DECREASED GLUCOSE; Start 05/29/16 at 19:00 Glucagon (Glucagen) 1 mg Q15M PRN IM DECREASED GLUCOSE; Start 05/29/16 at 19:00 Glucose (Glutose) 15 gm Q15M PRN BUCCAL DECREASED GLUCOSE; Start 05/29/16 at 19: 00 Hydralazine HCl (Apresoline) 20 mg Q6H PRN IV sbp >170 Last administered on 05/30 09:21; Admin Dose 20 MG; Start 05/30/16 at 09:30 Acetaminophen (Tylenol Supp) 650 mg Q6H PRN [place] fever Last administered on 09:11; Admin Dose 650 MG; Start 05/30/16 at 10:30 Metoprolol Tartrate (Lopressor) 25 mg BID PO ; Start 05/30/16 at 21:00 Aspirin 81 mg 81 mg DAILY PO Last administered on 05/31/16 09:07; Admin Dose 81 MG; Start 05/31/16 at 09:00 Ondansetron HCl/ Dextrose (Zofran Inj/D5W) 54 ml @ 108 mls/hr Q6H PRN IV NAUSEA AND/OR VOMITING; Start 05/30/16 at 19:00 Ondansetron HCl (Zofran Inj) 4 mg Q6H PRN IV NAUSEA AND/OR VOMITING Last administered on 05/31/16 05:37; Admin Dose 4 MG; Start 05/30/16 at 19:30 Tobramycin TOBRAMYCIN PER PHARMACY NOTE XX ; Start 05/30/16 at 23:30 Dextrose/Sodium Chloride (D5-1/2ns) 1,000 ml @ 40 mls/hr Q24H IV Last administered on 05/30/16 23:47; Admin Dose 40 MLS/HR; Start 05/30/16 at 23:30 Assessment/Plan Chief Complaint/Hosp Course IMPRESSION AND PLAN: Right upper lobe dense consolidation enveloping right upper lobe anteriorly and apical segments concerning for possible neoplasm. 1. CT-guided biopsy of the lesion which I have requested. 2. Stop aspirin pending biopsy. 3. Continue broad-spectrum antibiotic coverage for likely postobstructive pneumonia. 4. Continue DVT and GI prophylaxis. 5. Continue hemodialysis with volume removal. Biopsy likely thursday. Problems: EHSAN SHEFFIELD MD, [facility] May 31, 2016 15:21
--- NOTE | 2016-05-31 16:01 | CONS ---
Date/Time of Note Date/Time of Note DATE: 05/31/16 TIME: 15:57 Assessment/Plan Assessment/Plan Additional Assessment/Plan Acute exacerbation of congestive heart failure Abnormal electrocardiogram. Pneumonia Chest mass and hilar lymphadenopathy. End-stage renal disease on hemodialysis. Anemia. Avoid Volume Overload Restrict fluids 1500cc/ 24 hours HD as scheduled Continue Metoprolol, losartan Continue GI and DVT Prophylaxis Consultation Date/Type/Reason Admit Date/Time May 29, 2016 at 14:54 Respiratory: shortness of breath (better) Cardiovascular: no complaints Gastrointestinal: no complaints Social History Smoking Status: Never smoker Exam/Review of Systems Vital Signs Vitals Vital Signs Date Time Temp Pulse Resp B/P Pulse Ox O2 Delivery O2 Flow Rate FiO2 05/31/16 15:30 113 05/31/16 15:25 98.2 05/31/16 15:00 19 164/75 96 05/31/16 14:17 Nasal Cannula 3.0 Intake and Output 05/30/16 05/30/16 05/31/16 15:00 23:00 07:00 Intake Total 790 ml 120 ml Output Total 2500 ml 2000 ml Balance -1710 ml -1880 ml Exam Head: atraumatic, normocephalic Neck: non-tender, supple Respiratory: clear to auscultation Cardiovascular: regular rate and rhythm Gastrointestinal: nl liver, spleen, non-tender, soft Extremities: normal pulses Results Result Diagram: 05/31/16 0708 05/31/16 1300 Results 24 hrs Laboratory Tests Test 05/30/16 17:05 05/30/16 20:23 05/31/16 07:00 05/31/16 07:08 Bedside Glucose 175 169 Alanine Aminotransferase (ALT/SGPT) 32 Albumin 3.8 Albumin/Globulin Ratio 0.95 Alkaline Phosphatase 104 Anion Gap 33 #H Aspartate Amino Transf (AST/SGOT) 109 H Blood Urea Nitrogen 55 H Calcium Level 8.8 Carbon Dioxide Level 22 Chloride Level 91 L Cholesterol Level 167 Cholesterol/HDL Ratio 4.5 Creatine Kinase 1120 #H Creatine Kinase Index 0.3 Creatinine 7.27 H Creatinine Kinase MB (Mass) 3.34 H Direct Bilirubin 0.00 Globulin 4.00 H Glucose Level 230 H HDL Cholesterol 37 Indirect Bilirubin 0.0 LDL Cholesterol, Calculated 86 Potassium Level 5.5 H Sodium Level 140 Total Bilirubin 0.0 L Total Protein 7.8 Triglycerides Level 218 H Troponin I 0.539 *H Basophils # 0.1 Basophils % 0.4 Eosinophils # 0.0 Eosinophils % 0.0 Hematocrit 36.3 L Hemoglobin 12.6 Lymphocytes # 0.4 L Lymphocytes % 1.7 L Mean Corpuscular Hemoglobin 31.4 Mean Corpuscular Hemoglobin Concent 34.7 Mean Corpuscular Volume 90.5 Mean Platelet Volume 11.1 #H Monocytes # 0.4 Monocytes % 1.9 Neutrophils # 21.3 H Neutrophils % 94.9 H Nucleated Red Blood Cells # 0.0 Nucleated Red Blood Cells % 0.0 Platelet Count 273 Red Blood Count 4.01 L Red Cell Distribution Width 15.7 H White Blood Count 22.4 #H Test 05/31/16 07:33 05/31/16 12:34 05/31/16 13:00 Bedside Glucose 253 H 199 Anion Gap 27 H Blood Urea Nitrogen 59 H Calcium Level 8.4 Carbon Dioxide Level 25 Chloride Level 92 L Creatinine 7.65 H Glucose Level 216 Potassium Level 4.8 Sodium Level 139 Medications Medications Current Medications Amlodipine Besylate (Norvasc) 10 mg DAILY PO ; Start 05/30/16 at 09:00 Latanoprost (Xalatan) 1 drop HS BOTH EYES Last administered on 05/30/16 20:24; Admin Dose 1 DROP; Start 05/29/16 at 21:00 Clonidine (Catapres) 0.1 mg TID PO Last administered on 05/30/16 13:08; Admin Dose 0.1 MG; Start 05/29/16 at 21:00 Fluoxetine HCl (Prozac) 20 mg DAILY PO Last administered on 05/31/16 09:09; Admin Dose 20 MG; Start 05/30/16 at 09:00 Gabapentin (Neurontin) 100 mg TID PO Last administered on 05/31/16 12:34; Admin Dose 100 MG; Start 05/29/16 at 21:00 Hydralazine HCl (Apresoline) 50 mg TID PO Last administered on 05/30/16 13:07; Admin Dose 50 MG; Start 05/29/16 at 21:00 Hydromorphone HCl (Dilaudid) 2 mg Q4H PRN PO PAIN; Start 05/29/16 at 18:00 Losartan Potassium (Cozaar) 50 mg DAILY PO ; Start 05/30/16 at 09:00 Methocarbamol (Robaxin) 500 mg DAILY PO Last administered on 05/31/16 09:08; Admin Dose 500 MG; Start 05/30/16 at 09:00 Acetaminophen (Tylenol Tab) 650 mg Q6H PRN PO PAIN LEVEL 1-3 OR FEVER Last administered on 05/30/16 02:17; Admin Dose 650 MG; Start 05/29/16 at 18:00 Docusate Sodium (Colace) 100 mg Q12H PRN PO CONSTIPATION; Start 05/29/16 at 18: 00 Magnesium Hydroxide (Milk Of Mag) 30 ml DAILY PRN PO CONSTIPATION; Start at 18:00 Bisacodyl (Dulcolax) 5 mg DAILY PRN PO CONSTIPATION; Start 05/29/16 at 18:00 Pantoprazole (Protonix Tab) 40 mg DAILY@06 PO Last administered on 05/30/16 05: 49; Admin Dose 40 MG; Start 05/30/16 at 06:00 Enoxaparin Sodium 30 mg 30 mg DAILY SC Last administered on 05/31/16 09:08; Admin Dose 30 MG; Start 05/30/16 at 09:00 Piperacillin Sod/ Tazobactam Sod (Zosyn 2.25gm/ 50ml (Pmx)) 50 ml @ 100 mls/hr TID IVPB Last administered on 05/31/16 12:40; Admin Dose 100 MLS/HR; Start 05/29 at 21:00 Miscellaneous Information 1 ea NOTE XX ; Start 05/29/16 at 19:00 Glucose (Glutose) 15 gm Q15M PRN PO DECREASED GLUCOSE; Start 05/29/16 at 19:00 Glucose (Glutose) 22.5 gm Q15M PRN PO DECREASED GLUCOSE; Start 05/29/16 at 19:00 Dextrose (D50w Syringe) 25 ml Q15M PRN IV DECREASED GLUCOSE; Start 05/29/16 at 19:00 Dextrose (D50w Syringe) 50 ml Q15M PRN IV DECREASED GLUCOSE; Start 05/29/16 at 19:00 Glucagon (Glucagen) 1 mg Q15M PRN IM DECREASED GLUCOSE; Start 05/29/16 at 19:00 Glucose (Glutose) 15 gm Q15M PRN BUCCAL DECREASED GLUCOSE; Start 05/29/16 at 19: 00 Hydralazine HCl (Apresoline) 20 mg Q6H PRN IV sbp >170 Last administered on 05/30 09:21; Admin Dose 20 MG; Start 05/30/16 at 09:30 Acetaminophen (Tylenol Supp) 650 mg Q6H PRN [place] fever Last administered on 09:11; Admin Dose 650 MG; Start 05/30/16 at 10:30 Metoprolol Tartrate (Lopressor) 25 mg BID PO ; Start 05/30/16 at 21:00 Aspirin 81 mg 81 mg DAILY PO Last administered on 05/31/16 09:07; Admin Dose 81 MG; Start 05/31/16 at 09:00 Ondansetron HCl/ Dextrose (Zofran Inj/D5W) 54 ml @ 108 mls/hr Q6H PRN IV NAUSEA AND/OR VOMITING; Start 05/30/16 at 19:00 Ondansetron HCl (Zofran Inj) 4 mg Q6H PRN IV NAUSEA AND/OR VOMITING Last administered on 05/31/16 05:37; Admin Dose 4 MG; Start 05/30/16 at 19:30 Tobramycin TOBRAMYCIN PER PHARMACY NOTE XX ; Start 05/30/16 at 23:30 Dextrose/Sodium Chloride (D5-1/2ns) 1,000 ml @ 40 mls/hr Q24H IV Last administered on 05/30/16 23:47; Admin Dose 40 MLS/HR; Start 05/30/16 at 23:30 ALEJANDRA SHOEMAKER M.D. May 31, 2016 16:01
[2016-05-31] MEDS: TOBRAMYCIN 80 MG in SOD CHLORIDE 0.9% 50 ML IVPB SCH (17:28)
--- NOTE | 2016-05-31 19:08 | CONS ---
DATE OF ADMISSION: 05/29/2016 DATE OF CONSULTATION: 05/31/2016 TYPE OF CONSULTATION: Infectious Disease. REASON FOR CONSULTATION: Antibiotic management. HISTORY OF PRESENT ILLNESS: Shelia Lipscomb is a 71-year-old female who comes in with sore th roat and odynophagia for the last 2 to 3 days. She had a low grade fever yesterday. She saw her [facility] physician, who put her on Augmentin. She took only 1 pill. She came in this morning wit h left-sided weakness of the upper extremity and lower extremity, which was new. When she went to b ed, she was normal and this was present upon her awakening. She denies headache, visual changes, sl urred speech, shortness of breath. On arrival here, she is already improving with regards to the sore throat. She cannot swallow solid s, but she can swallow liquids. She is somewhat short of breath but she does not have any respirato ry distress. She has a dry nonproductive cough. Patient is a dialysis patient. Her past problems include: 1. End-stage renal disease, on hemodialysis. 2. Adult-onset diabetes mellitus. 3. Hypertension. 4. Depression. 5. Cataract extraction and lens implants. 6. She also has a history of hematemesis and EGD. On admission, her white count was 14.4, H and H of 12.4 and 36.3, platelet count 425,000. Today, wh ite count is 22.4, BUN and creatinine is 59 and 7.65. Coagulation is in order. Her mono screen draya t is negative. MICROBIOLOGY: Blood cultures are negative. C. difficile assay is negative. Group A strep rapid an tigen is negative. IMAGING STUDIES: Her chest x-ray shows mild pulmonary venous hypertension, mild cardiomegaly. On admission, a soft tissue neck CT was done, showed no gross loculated fluid collection or cervical lymphadenopathy. A mass-like consolidation in the medial right upper lobe with an air bronchogram. There appears to be soft tissue infiltration into right hilum and mediastinum. This is consistent or concerning for underlying right hilar mediastinal mass with postobstructive consolidation. Dio mmend chest CT, with contrast, for further evaluation. She has endplate erosive changes at C5-C6, w hich could be discogenic disease; however, osteomyelitis cannot be excluded. If clinically warrante d, consider MRI of the cervical spine with and without contrast for further evaluation. A CT scan of the brain showed atrophy, microangiopathic ischemic changes. No intracranial hemorrhag es. A CT scan of the chest shows mass-like consolidation within the medial right upper lobe envelop ing right upper lobe anterior and apical segmental bronchi and extending into the mediastinum superi or to the right main stem bronchus, suspicious for neoplasm. A 3 mm calcified granuloma is seen wit hin the left upper lobe. PAST MEDICAL HISTORY: Operations as outlined. FAMILY HISTORY: Noncontributory. SOCIAL HISTORY: She does not smoke, drink, or abuse drugs. ALLERGIES: NONE TO PENICILLIN, SULFA, OR FOODS. MEDICATIONS: Per chart. REVIEW OF SYSTEMS: As per HPI. PHYSICAL EXAMINATION: GENERAL: The patient is an elderly-appearing female who is awake, responsive, in no acute distress. VITAL SIGNS: Stable. She is afebrile. SKIN: Without generalized rash. HEENT: Within normal limits. NECK: Supple. LYMPH NODES: None palpable. CHEST: Decreased breath sounds at the bases. HEART: Without murmur or gallops. ABDOMEN: Soft, nontender, without organosplenomegaly or masses. EXTREMITIES: Without cyanosis, clubbing, or edema. RECTAL AND GENITAL: Exams deferred. NEUROLOGIC: No focal neurological abnormalities. HOSPITAL COURSE: The patient was seen by Dr. Salcedo, also by Dr. Clifton in pulmonary consultation . Today, a white count is 22.4. She was seen by Johnnie Broderick, covering for Dr. Salcedo. She has pneumonia, end-stage renal disease on hemodialysis. She is currently on Zosyn and tobramycin after dialysis. We will continue her on this regimen. I will dictate my findings to Dr. Dano anne d to the aforementioned consultants. Dictated By: SHAWN ASH MD, JD/YAHIR Conf#: [id number] DID#: [id number]
[2016-05-31] MEDS: LATANOPROST 0.005% 2.5 ML OPH BOTH EYES SCH (21:00)
--- NOTE | 2016-05-31 21:10 | RADRPT ---
Vent Rate: 114 bpm RR Interval: 0 msec NM Interval: 144 msec QRS Duration: 90 msec QT Interval: 322 msec QTC Interval: 443 msec P-R-T [place]: 63 - -23 - 68 degrees Sinus tachycardia Otherwise normal ECG Electronically Signed By: Johnnie Broderick [id number]
[2016-06-01] VITALS (11 sets, daily range): BP systolic 119–156; BP diastolic 55–72; PULSE 94–113; RESP 18–20
[2016-06-01] MEDS: DEXTROSE 5%-0.45% NACL 1,000 ML IV SCH ×2 (00:58→23:30)
[2016-06-01] MEDS: ALBUTEROL/IPRATROPIUM (NEB) 3 ML AMP INH SCH ×4 (01:28→19:26)
[2016-06-01] MEDS: PANTOPRAZOLE (EC) 40 MG TAB PO SCH (05:23)
[2016-06-01 06:47] LABS: HEMATOCRIT 38.1 % (37.0-47.0); HEMOGLOBIN 12.9 g/dl (12.0-16.0); MEAN CORPUSCULAR HEMOGLOBIN 31.2 pg (29.0-33.0); MEAN CORPUSCULAR HGB CONC 33.7 g/dl (32.0-37.0); MEAN CORPUSCULAR VOLUME 92.6 fl (82.0-101.0); MEAN PLATELET VOLUME 9.1 fl (7.4-10.4); PLATELET COUNT 281 10^3/UL (140-440); RED BLOOD COUNT 4.12 10^6/ul (4.20-5.40); RED CELL DISTRIBUTION WIDTH 16.6 % (11.5-14.5); UNCORRECTED WBC 18.7 10^3/ul (4.8-10.8); WHITE BLOOD COUNT 18.7 10^3/ul (4.8-10.8)
[2016-06-01 06:48] LABS: SUSPECT 1
[2016-06-01 06:49] LABS: CONDITION 1; LH ANALYZER COMMENTS 1
[2016-06-01] MEDS: SEVELAMER CARBONATE 0.8 GM PKT PO SCH ×3 (08:59→17:18)
[2016-06-01] MEDS: CALCIUM ACETATE 667 MG CAP PO SCH ×3 (08:59→17:18)
[2016-06-01] MEDS: INSULIN ASPART [NOVOLOG] 3 ML PEN SC SCH ×4 (09:07→21:07)
[2016-06-01] MEDS: ASPIRIN 81 MG TAB PO SCH (09:08)
[2016-06-01] MEDS: LOSARTAN 50 MG TAB PO SCH (09:09)
[2016-06-01] MEDS: METOPROLOL 25 MG TAB PO SCH ×2 (09:09→21:00)
[2016-06-01] MEDS: GABAPENTIN 100 MG CAP PO SCH ×3 (09:10→21:01)
[2016-06-01] MEDS: AMLODIPINE 10 MG TAB PO SCH (09:10)
[2016-06-01] MEDS: METHOCARBAMOL 500 MG TAB PO SCH (09:11)
[2016-06-01] MEDS: FLUOXETINE 20 MG CAP PO SCH (09:11)
[2016-06-01] MEDS: ONDANSETRON 4 MG INJ IV PRN (09:12)
[2016-06-01] MEDS: ENOXAPARIN 30 MG/0.3 ML SYG SC SCH (09:13)
[2016-06-01] MEDS: ACETAMINOPHEN 650 MG SUPP PR PRN (09:17)
[2016-06-01] MEDS: PIPER-TAZO 2.25 GM (PMX) 50 ML IVPB SCH ×3 (09:17→22:04)
[2016-06-01 10:19] LABS: EOSINOPHILS # 0.2 10^3/ul (0.0-0.5); LYMPHOCYTES # 0.7 10^3/ul (0.8-2.9); MONOCYTE # 0.7 10^3/ul (0.3-0.9); NEUTROPHIL # 15.7 10^3/ul (1.6-7.5)
--- NOTE | 2016-06-01 13:23 | CONS ---
Date/Time of Note Date/Time of Note DATE: 06/01/16 TIME: 13:21 Consult Date/Type/Reason Admit Date/Time May 29, 2016 at 14:54 Type of Consultation: Pulmonary Subjective Patient remained stable no new events Objective Vital Signs Date Time Temp Pulse Resp B/P Pulse Ox O2 Delivery O2 Flow Rate FiO2 06/01/16 12:08 98 06/01/16 12:08 99.2 20 146/63 92 06/01/16 08:09 3.0 06/01/16 08:06 Nasal Cannula Intake and Output 05/31/16 05/31/16 06/01/16 15:00 23:00 07:00 Intake Total 100 ml 940 ml 200 ml Output Total 2300 ml Balance 100 ml -1360 ml 200 ml PHYSICAL EXAMINATION: GENERAL: Elderly-appearing lady, appears comfortable at rest, no acute distress. VITAL SIGNS: As above. NECK: Supple. No JVD or lymphadenopathy. CARDIAC: S1, S2, no added sounds or murmurs. CHEST: Diminished air entry bilaterally. ABDOMEN: Soft, nontender. No guarding or rebound. EXTREMITIES: No cyanosis, clubbing, edema. NEUROLOGIC: Grossly intact. No focal deficits. Results/Medications Result Diagram: 06/01/16 0520 05/31/16 1300 Results 24 hrs Laboratory Tests Test 05/31/16 17:10 05/31/16 21:22 06/01/16 01:47 06/01/16 05:20 Bedside Glucose 209 189 207 Band Neutrophils % 7.0 H Basophils # Basophils % Blood Morphology Comment Differential Comment MANUAL DIFF Eosinophils # 0.2 Eosinophils % 1.0 Hematocrit 38.1 Hemoglobin 12.9 Lymphocytes # 0.7 L Lymphocytes % 4.0 L Mean Corpuscular Hemoglobin 31.2 Mean Corpuscular Hemoglobin Concent 33.7 Mean Corpuscular Volume 92.6 Mean Platelet Volume 9.1 Monocytes # 0.7 Monocytes % 4.0 Neutrophils # 15.7 H Neutrophils % 84.0 H Nucleated Red Blood Cells # Nucleated Red Blood Cells % Platelet Count 281 Red Blood Count 4.12 L Red Cell Distribution Width 16.6 H White Blood Count 18.7 H Test 06/01/16 09:00 06/01/16 09:02 06/01/16 09:03 06/01/16 12:20 Bedside Glucose 518 *H 281 H 258 H 213 Medications Current Medications Amlodipine Besylate (Norvasc) 10 mg DAILY PO Last administered on 06/01/16 09: 10; Admin Dose 10 MG; Start 05/30/16 at 09:00 Latanoprost (Xalatan) 1 drop HS BOTH EYES Last administered on 05/30/16 20:24; Admin Dose 1 DROP; Start 05/29/16 at 21:00 Clonidine (Catapres) 0.1 mg TID PO Last administered on 06/01/16 13:02; Admin Dose 0.1 MG; Start 05/29/16 at 21:00 Fluoxetine HCl (Prozac) 20 mg DAILY PO Last administered on 06/01/16 09:11; Admin Dose 20 MG; Start 05/30/16 at 09:00 Gabapentin (Neurontin) 100 mg TID PO Last administered on 06/01/16 13:02; Admin Dose 100 MG; Start 05/29/16 at 21:00 Hydralazine HCl (Apresoline) 50 mg TID PO Last administered on 06/01/16 09:05; Admin Dose 50 MG; Start 05/29/16 at 21:00 Hydromorphone HCl (Dilaudid) 2 mg Q4H PRN PO PAIN; Start 05/29/16 at 18:00 Losartan Potassium (Cozaar) 50 mg DAILY PO Last administered on 06/01/16 09:09 ; Admin Dose 50 MG; Start 05/30/16 at 09:00 Methocarbamol (Robaxin) 500 mg DAILY PO Last administered on 06/01/16 09:11; Admin Dose 500 MG; Start 05/30/16 at 09:00 Acetaminophen (Tylenol Tab) 650 mg Q6H PRN PO PAIN LEVEL 1-3 OR FEVER Last administered on 05/30/16 02:17; Admin Dose 650 MG; Start 05/29/16 at 18:00 Docusate Sodium (Colace) 100 mg Q12H PRN PO CONSTIPATION; Start 05/29/16 at 18: 00 Magnesium Hydroxide (Milk Of Mag) 30 ml DAILY PRN PO CONSTIPATION; Start at 18:00 Bisacodyl (Dulcolax) 5 mg DAILY PRN PO CONSTIPATION; Start 05/29/16 at 18:00 Pantoprazole (Protonix Tab) 40 mg DAILY@06 PO Last administered on 05/30/16 05: 49; Admin Dose 40 MG; Start 05/30/16 at 06:00 Enoxaparin Sodium (Lovenox) 30 mg DAILY SC Last administered on 06/01/16 09:13 ; Admin Dose 30 MG; Start 05/30/16 at 09:00 Miscellaneous Information 1 ea NOTE XX ; Start 05/29/16 at 19:00 Glucose (Glutose) 15 gm Q15M PRN PO DECREASED GLUCOSE; Start 05/29/16 at 19:00 Glucose (Glutose) 22.5 gm Q15M PRN PO DECREASED GLUCOSE; Start 05/29/16 at 19:00 Dextrose (D50w Syringe) 25 ml Q15M PRN IV DECREASED GLUCOSE; Start 05/29/16 at 19:00 Dextrose (D50w Syringe) 50 ml Q15M PRN IV DECREASED GLUCOSE; Start 05/29/16 at 19:00 Glucagon (Glucagen) 1 mg Q15M PRN IM DECREASED GLUCOSE; Start 05/29/16 at 19:00 Glucose (Glutose) 15 gm Q15M PRN BUCCAL DECREASED GLUCOSE; Start 05/29/16 at 19: 00 Hydralazine HCl (Apresoline) 20 mg Q6H PRN IV sbp >170 Last administered on 05/30 09:21; Admin Dose 20 MG; Start 05/30/16 at 09:30 Acetaminophen (Tylenol Supp) 650 mg Q6H PRN [place] fever Last administered on 09:17; Admin Dose 650 MG; Start 05/30/16 at 10:30 Metoprolol Tartrate (Lopressor) 25 mg BID PO Last administered on 06/01/16 09: 09; Admin Dose 25 MG; Start 05/30/16 at 21:00 Aspirin 81 mg 81 mg DAILY PO Last administered on 06/01/16 09:08; Admin Dose 81 MG; Start 05/31/16 at 09:00 Ondansetron HCl/ Dextrose (Zofran Inj/D5W) 54 ml @ 108 mls/hr Q6H PRN IV NAUSEA AND/OR VOMITING; Start 05/30/16 at 19:00 Ondansetron HCl (Zofran Inj) 4 mg Q6H PRN IV NAUSEA AND/OR VOMITING Last administered on 06/01/16 09:12; Admin Dose 4 MG; Start 05/30/16 at 19:30 Tobramycin TOBRAMYCIN PER PHARMACY NOTE XX ; Start 05/30/16 at 23:30 Dextrose/Sodium Chloride 1,000 ml @ 40 mls/hr Q24H IV Last administered on 06/01 00:58; Admin Dose 40 MLS/HR; Start 05/30/16 at 23:30 Piperacillin Sod/ Tazobactam Sod (Zosyn 2.25gm/ 50ml (Pmx)) 50 ml @ 100 mls/hr Q8 IVPB ; Start 06/01/16 at 14:00 Assessment/Plan Chief Complaint/Hosp Course IMPRESSION AND PLAN: Right upper lobe dense consolidation enveloping right upper lobe anteriorly and apical segments concerning for possible neoplasm. 1. CT-guided biopsy of the lesion will be performed tomorrow 2. Stop aspirin pending biopsy. 3. Continue broad-spectrum antibiotic coverage for likely postobstructive pneumonia. 4. Continue DVT and GI prophylaxis. 5. Continue hemodialysis with volume removal. Problems: EHSAN SHEFFIELD MD, [facility] Jun 01, 2016 13:23
[2016-06-01] MEDS ORDERED: NITROGLYCERIN 0.4 MG/HR PATCH TRANSDERM PRN (16:30)
--- NOTE | 2016-06-01 17:57 | PN ---
DATE: 06/01/2016 INFECTIOUS DISEASE PROGRESS NOTE SUBJECTIVE: Patient is alert, lying comfortably in bed, family present. She is in no distress. Con tinues to spike fevers with a T-max this morning 100.8, T-current 99.2: WBC 18.7, platelets 281, ne utrophils 84, bands 7, lymphs 4, monos 4. INDWELLINGS: Right upper extremity AV fistula. MICROBIOLOGY: Blood culture, MRSA screen and stool for C. diff negative. DIAGNOSTICS: CT of the chest revealed mass-like consolidation within the medial right upper lobe in terloping the right upper lobe and extending into the mediastinum, superior to the right main stem b ronchus, suspicious for neoplasm. Peritracheal and right hilar adenopathy, subsegmental atelectasis, mild cardiomegaly, and 3.5 x 2.2 cm mass extends inferiorly and posterior over the lower pole left lobe of the thyroid with coarse calcifications seen in the right lobe and isthmus. ANTIMICROBIALS: Patient is on Zosyn, tobramycin day #4 and vancomycin. PHYSICAL EXAMINATION: GENERAL: This is a fragile and vancomycin. This is a fragile, elderly woman who is alert, in no di stress. HEENT: Head atraumatic, normocephalic. Sclerae anicteric. Buccal mucosa pink. NECK: Supple, trachea midline. CHEST: Rise symmetrical. Breath sounds diminished to bases. HEART: S1, S2. ABDOMEN: Soft. Bowel tones present. EXTREMITIES: Without cyanosis. ASSESSMENT: 1. Systemic inflammatory response syndrome with low grade fevers and leukocytosis. 2. Lung mass, possibly malignant. 3. Post-obstructive pneumonia. 4. End-stage renal disease, hemodialysis dependent. 5. Diabetes. PLAN: The patient remains clinically stable. We are going to continue her on current antimicrobial s. We will discontinue tobramycin though and keep her on vancomycin. Await for CT-guided biopsy of lung mass. Follow recommendations of specialists. Above was discussed with family at bedside. Dictated By: PAULA CHANEL CARDIOVASCULAR SURGEON for SHAWN ASH MD NI/NTS Conf#: [id number] DID#: [id number]
--- NOTE | 2016-06-01 19:51 | CONS ---
Date/Time of Note Date/Time of Note DATE: 06/01/16 TIME: 19:50 Assessment/Plan Assessment/Plan Additional Assessment/Plan Acute exacerbation of congestive heart failure Abnormal electrocardiogram. Pneumonia Chest mass and hilar lymphadenopathy. End-stage renal disease on hemodialysis. Anemia. Avoid Volume Overload Restrict fluids 1500cc/ 24 hours HD as scheduled Continue Metoprolol, losartan Continue GI and DVT Prophylaxis Consultation Date/Type/Reason Admit Date/Time May 29, 2016 at 14:54 Initial Consult Date Type of Consultation: Pulmonary Exam/Review of Systems Vital Signs Vitals Vital Signs Date Time Temp Pulse Resp B/P Pulse Ox O2 Delivery O2 Flow Rate FiO2 06/01/16 19:30 95 2.0 06/01/16 19:27 98 20 Nasal Cannula 06/01/16 16:26 98.5 119/55 Intake and Output 05/31/16 05/31/16 06/01/16 15:00 23:00 07:00 Intake Total 100 ml 940 ml 200 ml Output Total 2300 ml Balance 100 ml -1360 ml 200 ml Exam Head: atraumatic, normocephalic Neck: non-tender, supple Respiratory: clear to auscultation Cardiovascular: regular rate and rhythm Gastrointestinal: nl liver, spleen, non-tender, soft Extremities: normal pulses Results Result Diagram: 06/01/16 0520 05/31/16 1300 Results 24 hrs Laboratory Tests Test 05/31/16 21:22 06/01/16 01:47 06/01/16 05:20 06/01/16 09:00 Bedside Glucose 189 207 518 *H Band Neutrophils % 7.0 H Basophils # Basophils % Blood Morphology Comment Differential Comment MANUAL DIFF Eosinophils # 0.2 Eosinophils % 1.0 Hematocrit 38.1 Hemoglobin 12.9 Lymphocytes # 0.7 L Lymphocytes % 4.0 L Mean Corpuscular Hemoglobin 31.2 Mean Corpuscular Hemoglobin Concent 33.7 Mean Corpuscular Volume 92.6 Mean Platelet Volume 9.1 Monocytes # 0.7 Monocytes % 4.0 Neutrophils # 15.7 H Neutrophils % 84.0 H Nucleated Red Blood Cells # Nucleated Red Blood Cells % Platelet Count 281 Red Blood Count 4.12 L Red Cell Distribution Width 16.6 H White Blood Count 18.7 H Test 06/01/16 09:02 06/01/16 09:03 2/5/17 12:20 06/01/16 17:11 Bedside Glucose 281 H 258 H 213 288 H Medications Medications Current Medications Amlodipine Besylate (Norvasc) 10 mg DAILY PO Last administered on 06/01/16 09: 10; Admin Dose 10 MG; Start 05/30/16 at 09:00 Latanoprost (Xalatan) 1 drop HS BOTH EYES Last administered on 05/30/16 20:24; Admin Dose 1 DROP; Start 05/29/16 at 21:00 Clonidine (Catapres) 0.1 mg TID PO Last administered on 06/01/16 13:02; Admin Dose 0.1 MG; Start 05/29/16 at 21:00 Fluoxetine HCl (Prozac) 20 mg DAILY PO Last administered on 06/01/16 09:11; Admin Dose 20 MG; Start 05/30/16 at 09:00 Gabapentin (Neurontin) 100 mg TID PO Last administered on 06/01/16 13:02; Admin Dose 100 MG; Start 05/29/16 at 21:00 Hydralazine HCl (Apresoline) 50 mg TID PO Last administered on 06/01/16 13:32; Admin Dose 50 MG; Start 05/29/16 at 21:00 Hydromorphone HCl (Dilaudid) 2 mg Q4H PRN PO PAIN; Start 05/29/16 at 18:00 Losartan Potassium (Cozaar) 50 mg DAILY PO Last administered on 06/01/16 09:09 ; Admin Dose 50 MG; Start 05/30/16 at 09:00 Methocarbamol (Robaxin) 500 mg DAILY PO Last administered on 06/01/16 09:11; Admin Dose 500 MG; Start 05/30/16 at 09:00 Acetaminophen (Tylenol Tab) 650 mg Q6H PRN PO PAIN LEVEL 1-3 OR FEVER Last administered on 05/30/16 02:17; Admin Dose 650 MG; Start 05/29/16 at 18:00 Docusate Sodium (Colace) 100 mg Q12H PRN PO CONSTIPATION; Start 05/29/16 at 18: 00 Magnesium Hydroxide (Milk Of Mag) 30 ml DAILY PRN PO CONSTIPATION; Start at 18:00 Bisacodyl (Dulcolax) 5 mg DAILY PRN PO CONSTIPATION; Start 05/29/16 at 18:00 Pantoprazole (Protonix Tab) 40 mg DAILY@06 PO Last administered on 05/30/16 05: 49; Admin Dose 40 MG; Start 05/30/16 at 06:00 Enoxaparin Sodium (Lovenox) 30 mg DAILY SC Last administered on 06/01/16 09:13 ; Admin Dose 30 MG; Start 05/30/16 at 09:00 Miscellaneous Information 1 ea NOTE XX ; Start 05/29/16 at 19:00 Glucose (Glutose) 15 gm Q15M PRN PO DECREASED GLUCOSE; Start 05/29/16 at 19:00 Glucose (Glutose) 22.5 gm Q15M PRN PO DECREASED GLUCOSE; Start 05/29/16 at 19:00 Dextrose (D50w Syringe) 25 ml Q15M PRN IV DECREASED GLUCOSE; Start 05/29/16 at 19:00 Dextrose (D50w Syringe) 50 ml Q15M PRN IV DECREASED GLUCOSE; Start 05/29/16 at 19:00 Glucagon (Glucagen) 1 mg Q15M PRN IM DECREASED GLUCOSE; Start 05/29/16 at 19:00 Glucose (Glutose) 15 gm Q15M PRN BUCCAL DECREASED GLUCOSE; Start 05/29/16 at 19: 00 Hydralazine HCl (Apresoline) 20 mg Q6H PRN IV sbp >170 Last administered on 05/30 09:21; Admin Dose 20 MG; Start 05/30/16 at 09:30 Acetaminophen (Tylenol Supp) 650 mg Q6H PRN [place] fever Last administered on 09:17; Admin Dose 650 MG; Start 05/30/16 at 10:30 Metoprolol Tartrate (Lopressor) 25 mg BID PO Last administered on 06/01/16 09: 09; Admin Dose 25 MG; Start 05/30/16 at 21:00 Aspirin 81 mg 81 mg DAILY PO Last administered on 06/01/16 09:08; Admin Dose 81 MG; Start 05/31/16 at 09:00 Ondansetron HCl/ Dextrose (Zofran Inj/D5W) 54 ml @ 108 mls/hr Q6H PRN IV NAUSEA AND/OR VOMITING; Start 05/30/16 at 19:00 Ondansetron HCl (Zofran Inj) 4 mg Q6H PRN IV NAUSEA AND/OR VOMITING Last administered on 06/01/16 09:12; Admin Dose 4 MG; Start 05/30/16 at 19:30 Tobramycin TOBRAMYCIN PER PHARMACY NOTE XX ; Start 05/30/16 at 23:30 Dextrose/Sodium Chloride 1,000 ml @ 40 mls/hr Q24H IV Last administered on 06/01 00:58; Admin Dose 40 MLS/HR; Start 05/30/16 at 23:30 Piperacillin Sod/ Tazobactam Sod (Zosyn 2.25gm/ 50ml (Pmx)) 50 ml @ 100 mls/hr Q8 IVPB ; Start 06/01/16 at 22:00 Nitroglycerin (Nitroglycerin 0.4 Mg/Hr) 1 patch DAILY PRN TRANSDERM CHEST PAIN ; Start 06/01/16 at 16:30 ALEJANDRA SHOEMAKER M.D. Jun 01, 2016 19:51
[2016-06-01] MEDS: LATANOPROST 0.005% 2.5 ML OPH BOTH EYES SCH (21:48)
--- NOTE | 2016-06-01 23:14 | PN ---
Date/Time of Note Date/Time of Note DATE: 06/01/16 TIME: 23:13 Assessment/Plan VTE Prophylaxis VTE Prophylaxis Intervention: other Lines/Catheters IV C[facility]ter Type (from [facility]): Peripheral IV Assessment/Plan Chief Complaint/Hosp Course IMPRESSION: 1. Patient has pneumonia. 2. Lung mass. 3. Pulmonary edema. 4. The patient has hypertension, diabetes mellitus, leukocytosis, , anemia, atherosclerotic heart disease, positive troponin. 5 sepsis plan hd per cardio pulmonary antibiotic Problems: Subjective 24 Hr Interval Summary Respiratory: shortness of breath (better) Cardiovascular: no complaints Gastrointestinal: no complaints Exam/Review of Systems Vital Signs Vitals Vital Signs Date Time Temp Pulse Resp B/P Pulse Ox O2 Delivery O2 Flow Rate FiO2 06/01/16 20:30 102 06/01/16 19:30 95 2.0 06/01/16 19:27 20 Nasal Cannula 06/01/16 16:26 98.5 119/55 Intake and Output 05/31/16 05/31/16 06/01/16 15:00 23:00 07:00 Intake Total 100 ml 940 ml 200 ml Output Total 2300 ml Balance 100 ml -1360 ml 200 ml Exam Neck: supple Respiratory: diminished breath sounds Cardiovascular: regular rate and rhythm Gastrointestinal: soft Extremities: edema (+) Results Result Diagram: 06/01/16 0520 05/31/16 1300 Results 24 hrs Laboratory Tests Test 06/01/16 01:47 06/01/16 05:20 06/01/16 09:00 06/01/16 09:02 Bedside Glucose 207 518 *H 281 H Band Neutrophils % 7.0 H Basophils # Basophils % Blood Morphology Comment Differential Comment MANUAL DIFF Eosinophils # 0.2 Eosinophils % 1.0 Hematocrit 38.1 Hemoglobin 12.9 Lymphocytes # 0.7 L Lymphocytes % 4.0 L Mean Corpuscular Hemoglobin 31.2 Mean Corpuscular Hemoglobin Concent 33.7 Mean Corpuscular Volume 92.6 Mean Platelet Volume 9.1 Monocytes # 0.7 Monocytes % 4.0 Neutrophils # 15.7 H Neutrophils % 84.0 H Nucleated Red Blood Cells # Nucleated Red Blood Cells % Platelet Count 281 Red Blood Count 4.12 L Red Cell Distribution Width 16.6 H White Blood Count 18.7 H Test 06/01/16 09:03 06/01/16 12:20 06/01/16 17:11 06/01/16 20:59 Bedside Glucose 258 H 213 288 H 305 H Medications Medications Current Medications Amlodipine Besylate (Norvasc) 10 mg DAILY PO Last administered on 06/01/16 09: 10; Admin Dose 10 MG; Start 05/30/16 at 09:00 Latanoprost (Xalatan) 1 drop HS BOTH EYES Last administered on 06/01/16 21:48; Admin Dose 1 DROP; Start 05/29/16 at 21:00 Clonidine (Catapres) 0.1 mg TID PO Last administered on 06/01/16 21:01; Admin Dose 0.1 MG; Start 05/29/16 at 21:00 Fluoxetine HCl (Prozac) 20 mg DAILY PO Last administered on 06/01/16 09:11; Admin Dose 20 MG; Start 05/30/16 at 09:00 Gabapentin (Neurontin) 100 mg TID PO Last administered on 06/01/16 21:01; Admin Dose 100 MG; Start 05/29/16 at 21:00 Hydralazine HCl (Apresoline) 50 mg TID PO Last administered on 06/01/16 21:01; Admin Dose 50 MG; Start 05/29/16 at 21:00 Hydromorphone HCl (Dilaudid) 2 mg Q4H PRN PO PAIN; Start 05/29/16 at 18:00 Losartan Potassium (Cozaar) 50 mg DAILY PO Last administered on 06/01/16 09:09 ; Admin Dose 50 MG; Start 05/30/16 at 09:00 Methocarbamol (Robaxin) 500 mg DAILY PO Last administered on 06/01/16 09:11; Admin Dose 500 MG; Start 05/30/16 at 09:00 Acetaminophen (Tylenol Tab) 650 mg Q6H PRN PO PAIN LEVEL 1-3 OR FEVER Last administered on 05/30/16 02:17; Admin Dose 650 MG; Start 05/29/16 at 18:00 Docusate Sodium (Colace) 100 mg Q12H PRN PO CONSTIPATION; Start 05/29/16 at 18: 00 Magnesium Hydroxide (Milk Of Mag) 30 ml DAILY PRN PO CONSTIPATION; Start at 18:00 Bisacodyl (Dulcolax) 5 mg DAILY PRN PO CONSTIPATION; Start 05/29/16 at 18:00 Pantoprazole (Protonix Tab) 40 mg DAILY@06 PO Last administered on 05/30/16 05: 49; Admin Dose 40 MG; Start 05/30/16 at 06:00 Enoxaparin Sodium (Lovenox) 30 mg DAILY SC Last administered on 06/01/16 09:13 ; Admin Dose 30 MG; Start 05/30/16 at 09:00 Miscellaneous Information 1 ea NOTE XX ; Start 05/29/16 at 19:00 Glucose (Glutose) 15 gm Q15M PRN PO DECREASED GLUCOSE; Start 05/29/16 at 19:00 Glucose (Glutose) 22.5 gm Q15M PRN PO DECREASED GLUCOSE; Start 05/29/16 at 19:00 Dextrose (D50w Syringe) 25 ml Q15M PRN IV DECREASED GLUCOSE; Start 05/29/16 at 19:00 Dextrose (D50w Syringe) 50 ml Q15M PRN IV DECREASED GLUCOSE; Start 05/29/16 at 19:00 Glucagon (Glucagen) 1 mg Q15M PRN IM DECREASED GLUCOSE; Start 05/29/16 at 19:00 Glucose (Glutose) 15 gm Q15M PRN BUCCAL DECREASED GLUCOSE; Start 05/29/16 at 19: 00 Hydralazine HCl (Apresoline) 20 mg Q6H PRN IV sbp >170 Last administered on 05/30 09:21; Admin Dose 20 MG; Start 05/30/16 at 09:30 Acetaminophen (Tylenol Supp) 650 mg Q6H PRN [place] fever Last administered on 09:17; Admin Dose 650 MG; Start 05/30/16 at 10:30 Metoprolol Tartrate (Lopressor) 25 mg BID PO Last administered on 06/01/16 21: 00; Admin Dose 25 MG; Start 05/30/16 at 21:00 Aspirin 81 mg 81 mg DAILY PO Last administered on 06/01/16 09:08; Admin Dose 81 MG; Start 05/31/16 at 09:00 Ondansetron HCl/ Dextrose (Zofran Inj/D5W) 54 ml @ 108 mls/hr Q6H PRN IV NAUSEA AND/OR VOMITING; Start 05/30/16 at 19:00 Ondansetron HCl (Zofran Inj) 4 mg Q6H PRN IV NAUSEA AND/OR VOMITING Last administered on 06/01/16 09:12; Admin Dose 4 MG; Start 05/30/16 at 19:30 Tobramycin TOBRAMYCIN PER PHARMACY NOTE XX ; Start 05/30/16 at 23:30 Dextrose/Sodium Chloride 1,000 ml @ 40 mls/hr Q24H IV Last administered on 06/01 00:58; Admin Dose 40 MLS/HR; Start 05/30/16 at 23:30 Piperacillin Sod/ Tazobactam Sod (Zosyn 2.25gm/ 50ml (Pmx)) 50 ml @ 100 mls/hr Q8 IVPB Last administered on 06/01/16 22:04; Admin Dose 100 MLS/HR; Start at 22:00 Nitroglycerin (Nitroglycerin 0.4 Mg/Hr) 1 patch DAILY PRN TRANSDERM CHEST PAIN ; Start 06/01/16 at 16:30 Insulin Glargine (Lantus) 10 unit DAILY@08 SC ; Start 06/02/16 at 08:00 MICHELLE MCDANIEL MD Jun 01, 2016 23:14
[2016-06-02] VITALS (21 sets, daily range): BP systolic 99–163; BP diastolic 56–74; PULSE 61–110; RESP 16–24
[2016-06-02] MEDS: ALBUTEROL/IPRATROPIUM (NEB) 3 ML AMP INH SCH ×4 (01:29→19:34)
[2016-06-02] MEDS: PIPER-TAZO 2.25 GM (PMX) 50 ML IVPB SCH ×4 (05:50→21:20)
[2016-06-02] MEDS: PANTOPRAZOLE (EC) 40 MG TAB PO SCH (05:50)
[2016-06-02 07:46] LABS: BASOPHILS % 0.1 % (0.0-2.0); EOSINOPHILS % 0.1 % (0.0-7.0); HEMATOCRIT 35.3 % (37.0-47.0); HEMOGLOBIN 11.9 g/dl (12.0-16.0); LYMPHOCYTES # 0.4 10^3/ul (0.8-2.9); LYMPHOCYTES % 2.3 % (15.0-51.0); MEAN CORPUSCULAR HEMOGLOBIN 31.1 pg (29.0-33.0); MEAN CORPUSCULAR HGB CONC 33.6 g/dl (32.0-37.0); MEAN CORPUSCULAR VOLUME 92.6 fl (82.0-101.0); MEAN PLATELET VOLUME 8.6 fl (7.4-10.4); MONOCYTE # 0.6 10^3/ul (0.3-0.9); MONOCYTES % 3.4 % (0.0-11.0); NEUTROPHIL # 17.2 10^3/ul (1.6-7.5); NEUTROPHILS % 94.1 % (39.0-77.0); PLATELET COUNT 273 10^3/UL (140-440); RED BLOOD COUNT 3.81 10^6/ul (4.20-5.40); RED CELL DISTRIBUTION WIDTH 16.2 % (11.5-14.5); UNCORRECTED WBC 18.3 10^3/ul (4.8-10.8); WHITE BLOOD COUNT 18.3 10^3/ul (4.8-10.8)
[2016-06-02 07:49] LABS: CONDITION 1; LH ANALYZER COMMENTS 1; SUSPECT 1
[2016-06-02] MEDS: SEVELAMER CARBONATE 0.8 GM PKT PO SCH ×3 (08:00→17:50)
[2016-06-02] MEDS: CALCIUM ACETATE 667 MG CAP PO SCH ×3 (08:00→17:52)
[2016-06-02 08:04] LABS: POTASSIUM 4.8 mmol/L (3.5-5.1)
[2016-06-02 08:16] LABS: CREATININE 7.08 mg/dl (0.44-1.00)
[2016-06-02] MEDS: INSULIN GLARGINE [LANtus] 3 ML PEN SC SCH (08:45)
[2016-06-02] MEDS: INSULIN ASPART [NOVOLOG] 3 ML PEN SC SCH ×4 (08:46→21:56)
[2016-06-02] MEDS: FLUOXETINE 20 MG CAP PO SCH (09:00)
[2016-06-02] MEDS: GABAPENTIN 100 MG CAP PO SCH ×3 (09:00→21:20)
[2016-06-02] MEDS: AMLODIPINE 10 MG TAB PO SCH (09:00)
[2016-06-02] MEDS: METOPROLOL 25 MG TAB PO SCH ×2 (09:00→21:21)
[2016-06-02] MEDS: METHOCARBAMOL 500 MG TAB PO SCH (09:00)
[2016-06-02] MEDS: LOSARTAN 50 MG TAB PO SCH (09:00)
[2016-06-02] MEDS: ASPIRIN 81 MG TAB PO SCH (09:00)
[2016-06-02] MEDS: ENOXAPARIN 30 MG/0.3 ML SYG SC SCH (09:00)
--- NOTE | 2016-06-02 10:52 | RADRPT ---
PROCEDURE: CT Chest without contrast. CLINICAL INDICATION: Right upper lobe mass TECHNIQUE: Limited CT of the upper chest was performed on a multi-detector scanner without IV cont rast. The patient was scanned in the prone position. One or more of the following dose reduction t echniques were used: automated exposure control, adjustment of the mA and/or kV according to patien t size, use of iterative reconstruction technique. COMPARISON: CT 05/29/2016 FINDINGS: Medial right upper lobe pulmonary consolidation is noted, decreased when compared to the prior CT. No pleural effusion or pneumothorax is identified. No gross evidence of pulmonary or mediastinal ma ss is seen. Aortic atherosclerotic calcification is noted. No mediastinal, axillary or supraclavic ular lymphadenopathy is identified. Thyroid gland is again seen to be enlarged and multinodular. T he visualized osseous structures are remarkable for degenerative spondylosis of the spine. IMPRESSION: 1. Limited pre-biopsy CT evaluation of the upper chest. 2. The previously described mass-like consolidation in the medial right upper lobe demonstrates sig nificant interval improvement and decrease in size - it is thought that this most likely represents a resolving pneumonia or other inflammatory process. Neoplasm is unlikely - no convincing evidence to indicate mass or neoplasm is seen. Biopsy was deferred at this time. Findings were discussed with Dr. Clifton at approximately 10:15 a.m., 06/02/2016. RPTAT: QQ .Atul Chavez MD, MD Date Time Electronically viewed and signed by .Atul Chavez MD, MD on 06/02/2016 10:52 .R/
--- NOTE | 2016-06-02 12:32 | CONS ---
Date/Time of Note Date/Time of Note DATE: 06/02/16 TIME: 12:31 Consult Date/Type/Reason Admit Date/Time May 29, 2016 at 14:54 Type of Consultation: Pulmonary Subjective Patient remains stable no new events Objective Vital Signs Date Time Temp Pulse Resp B/P Pulse Ox O2 Delivery O2 Flow Rate FiO2 06/02/16 11:24 98.2 61 18 121/68 97 Nasal Cannula 2.0 Intake and Output 06/01/16 06/01/16 06/02/16 15:00 23:00 07:00 Intake Total 100 ml 750 ml Output Total 0 ml Balance 100 ml 750 ml 0 ml PHYSICAL EXAMINATION: GENERAL: Elderly-appearing lady, appears comfortable at rest, no acute distress. VITAL SIGNS: As above. NECK: Supple. No JVD or lymphadenopathy. CARDIAC: S1, S2, no added sounds or murmurs. CHEST: Diminished air entry bilaterally. ABDOMEN: Soft, nontender. No guarding or rebound. EXTREMITIES: No cyanosis, clubbing, edema. NEUROLOGIC: Grossly intact. No focal deficits. Results/Medications Result Diagram: 06/02/1625 06/02/16 0725 Results 24 hrs Laboratory Tests Test 06/01/16 17:11 06/01/16 20:59 06/02/16 07:25 06/02/16 08:39 Bedside Glucose 288 H 305 H 300 H Anion Gap 27 H Basophils # 0.0 Basophils % 0.1 Blood Morphology Comment Blood Urea Nitrogen 78 H Calcium Level 9.0 Carbon Dioxide Level 25 Chloride Level 96 L Creatinine 7.08 H Differential Comment AUTO w/SCAN Eosinophils # 0.0 Eosinophils % 0.1 Glucose Level 318 H Hematocrit 35.3 L Hemoglobin 11.9 L Lymphocytes # 0.4 L Lymphocytes % 2.3 L Mean Corpuscular Hemoglobin 31.1 Mean Corpuscular Hemoglobin Concent 33.6 Mean Corpuscular Volume 92.6 Mean Platelet Volume 8.6 Monocytes # 0.6 Monocytes % 3.4 Neutrophils # 17.2 H Neutrophils % 94.1 H Nucleated Red Blood Cells # 0.0 Nucleated Red Blood Cells % 0.0 Platelet Count 273 Potassium Level 4.8 Red Blood Count 3.81 L Red Cell Distribution Width 16.2 H Sodium Level 143 White Blood Count 18.3 H Test 06/02/16 11:11 Bedside Glucose 221 H Medications Current Medications Amlodipine Besylate (Norvasc) 10 mg DAILY PO Last administered on 06/01/16 09: 10; Admin Dose 10 MG; Start 05/30/16 at 09:00 Latanoprost (Xalatan) 1 drop HS BOTH EYES Last administered on 06/01/16 21:48; Admin Dose 1 DROP; Start 05/29/16 at 21:00 Clonidine (Catapres) 0.1 mg TID PO Last administered on 06/01/16 21:01; Admin Dose 0.1 MG; Start 05/29/16 at 21:00 Fluoxetine HCl (Prozac) 20 mg DAILY PO Last administered on 06/01/16 09:11; Admin Dose 20 MG; Start 05/30/16 at 09:00 Gabapentin (Neurontin) 100 mg TID PO Last administered on 06/01/16 21:01; Admin Dose 100 MG; Start 05/29/16 at 21:00 Hydralazine HCl (Apresoline) 50 mg TID PO Last administered on 06/01/16 21:01; Admin Dose 50 MG; Start 05/29/16 at 21:00 Hydromorphone HCl (Dilaudid) 2 mg Q4H PRN PO PAIN; Start 05/29/16 at 18:00 Losartan Potassium (Cozaar) 50 mg DAILY PO Last administered on 06/01/16 09:09 ; Admin Dose 50 MG; Start 05/30/16 at 09:00 Methocarbamol (Robaxin) 500 mg DAILY PO Last administered on 06/01/16 09:11; Admin Dose 500 MG; Start 05/30/16 at 09:00 Acetaminophen (Tylenol Tab) 650 mg Q6H PRN PO PAIN LEVEL 1-3 OR FEVER Last administered on 05/30/16 02:17; Admin Dose 650 MG; Start 05/29/16 at 18:00 Docusate Sodium (Colace) 100 mg Q12H PRN PO CONSTIPATION; Start 05/29/16 at 18: 00 Magnesium Hydroxide (Milk Of Mag) 30 ml DAILY PRN PO CONSTIPATION; Start at 18:00 Bisacodyl (Dulcolax) 5 mg DAILY PRN PO CONSTIPATION; Start 05/29/16 at 18:00 Pantoprazole (Protonix Tab) 40 mg DAILY@06 PO Last administered on 06/02/16 05: 50; Admin Dose 40 MG; Start 05/30/16 at 06:00 Enoxaparin Sodium (Lovenox) 30 mg DAILY SC Last administered on 06/01/16 09:13 ; Admin Dose 30 MG; Start 05/30/16 at 09:00 Miscellaneous Information 1 ea NOTE XX ; Start 05/29/16 at 19:00 Glucose (Glutose) 15 gm Q15M PRN PO DECREASED GLUCOSE; Start 05/29/16 at 19:00 Glucose (Glutose) 22.5 gm Q15M PRN PO DECREASED GLUCOSE; Start 05/29/16 at 19:00 Dextrose (D50w Syringe) 25 ml Q15M PRN IV DECREASED GLUCOSE; Start 05/29/16 at 19:00 Dextrose (D50w Syringe) 50 ml Q15M PRN IV DECREASED GLUCOSE; Start 05/29/16 at 19:00 Glucagon (Glucagen) 1 mg Q15M PRN IM DECREASED GLUCOSE; Start 05/29/16 at 19:00 Glucose (Glutose) 15 gm Q15M PRN BUCCAL DECREASED GLUCOSE; Start 05/29/16 at 19: 00 Hydralazine HCl (Apresoline) 20 mg Q6H PRN IV sbp >170 Last administered on 05/30 09:21; Admin Dose 20 MG; Start 05/30/16 at 09:30 Acetaminophen (Tylenol Supp) 650 mg Q6H PRN [place] fever Last administered on 09:17; Admin Dose 650 MG; Start 05/30/16 at 10:30 Metoprolol Tartrate (Lopressor) 25 mg BID PO Last administered on 06/01/16 21: 00; Admin Dose 25 MG; Start 05/30/16 at 21:00 Aspirin 81 mg 81 mg DAILY PO Last administered on 06/01/16 09:08; Admin Dose 81 MG; Start 05/31/16 at 09:00 Ondansetron HCl/ Dextrose (Zofran Inj/D5W) 54 ml @ 108 mls/hr Q6H PRN IV NAUSEA AND/OR VOMITING; Start 05/30/16 at 19:00 Ondansetron HCl (Zofran Inj) 4 mg Q6H PRN IV NAUSEA AND/OR VOMITING Last administered on 06/01/16 09:12; Admin Dose 4 MG; Start 05/30/16 at 19:30 Tobramycin TOBRAMYCIN PER PHARMACY NOTE XX ; Start 05/30/16 at 23:30 Piperacillin Sod/ Tazobactam Sod (Zosyn 2.25gm/ 50ml (Pmx)) 50 ml @ 100 mls/hr Q8 IVPB Last administered on 06/02/16 05:50; Admin Dose 100 MLS/HR; Start at 22:00 Nitroglycerin (Nitroglycerin 0.4 Mg/Hr) 1 patch DAILY PRN TRANSDERM CHEST PAIN ; Start 06/01/16 at 16:30 Insulin Glargine (Lantus) 10 unit DAILY@08 SC Last administered on 06/02/16 08: 45; Admin Dose 10 UNIT; Start 06/02/16 at 08:00 Assessment/Plan Chief Complaint/Hosp Course IMPRESSION AND PLAN: Right upper lobe dense consolidation enveloping right upper lobe anteriorly and apical segments concerning for possible neoplasm. 1. Repeat CT this morning shows improving dense right upper lobe infiltrate no evidence of mass according to radiologist biopsy not performed 2. Stop aspirin pending biopsy. 3. Continue broad-spectrum antibiotic coverage for likely postobstructive pneumonia. 4. Continue DVT and GI prophylaxis. 5. Continue hemodialysis with volume removal. Continue to monitor Problems: EHSAN SHEFFIELD MD, [facility] Jun 02, 2016 12:32
[2016-06-02] MEDS ORDERED: ALBUMIN HUMAN 25% 100 ML IV PRN (13:30)
--- NOTE | 2016-06-02 16:32 | CONS ---
Date/Time of Note Date/Time of Note DATE: 06/02/16 TIME: 16:29 Assessment/Plan Assessment/Plan Chief Complaint/Hosp Course SUBJECTIVE: Patient is alert, lying comfortably in bed, family present. She is in no distress. Still with low grade temps INDWELLINGS: Right upper extremity AV fistula. MICROBIOLOGY: Blood culture, MRSA screen and stool for C. diff negative. ANTIMICROBIALS: Patient is on Zosyn, tobramycin day #4 and vancomycin. PHYSICAL EXAMINATION: GENERAL: This is a fragile and vancomycin. This is a fragile, elderly woman who is alert, in no distress. HEENT: Head atraumatic, normocephalic. Sclerae anicteric. Buccal mucosa pink. NECK: Supple, trachea midline. CHEST: Rise symmetrical. Breath sounds diminished to bases. HEART: S1, S2. ABDOMEN: Soft. Bowel tones present. EXTREMITIES: Without cyanosis. ASSESSMENT: 1. Systemic inflammatory response syndrome with low grade fevers and leukocytosis. 2. Lung mass, possibly malignant. 3. Post-obstructive pneumonia. 4. End-stage renal disease, hemodialysis dependent. 5. Diabetes. PLAN: The patient remains stable. Repeat CT of the chest revealed improvement, no bx done, we are going to continue her on current antimicrobials. DW staff Problems: Consultation Date/Type/Reason Admit Date/Time May 29, 2016 at 14:54 Initial Consult Date Type of Consultation: ID Exam/Review of Systems Vital Signs Vitals Vital Signs Date Time Temp Pulse Resp B/P Pulse Ox O2 Delivery O2 Flow Rate FiO2 06/02/16 16:00 91 06/02/16 15:28 98.3 18 121/59 98 06/02/16 11:24 Nasal Cannula 2.0 Intake and Output 06/01/16 06/01/16 06/02/16 15:00 23:00 07:00 Intake Total 100 ml 750 ml Output Total 0 ml Balance 100 ml 750 ml 0 ml Results Result Diagram: 06/02/16 0725 06/02/16 0725 Results 24 hrs Laboratory Tests Test 06/01/16 17:11 06/01/16 20:59 06/02/16 07:25 06/02/16 08:39 Bedside Glucose 288 H 305 H 300 H Anion Gap 27 H Basophils # 0.0 Basophils % 0.1 Blood Morphology Comment Blood Urea Nitrogen 78 H Calcium Level 9.0 Carbon Dioxide Level 25 Chloride Level 96 L Creatinine 7.08 H Differential Comment AUTO w/SCAN Eosinophils # 0.0 Eosinophils % 0.1 Glucose Level 318 H Hematocrit 35.3 L Hemoglobin 11.9 L Lymphocytes # 0.4 L Lymphocytes % 2.3 L Mean Corpuscular Hemoglobin 31.1 Mean Corpuscular Hemoglobin Concent 33.6 Mean Corpuscular Volume 92.6 Mean Platelet Volume 8.6 Monocytes # 0.6 Monocytes % 3.4 Neutrophils # 17.2 H Neutrophils % 94.1 H Nucleated Red Blood Cells # 0.0 Nucleated Red Blood Cells % 0.0 Platelet Count 273 Potassium Level 4.8 Red Blood Count 3.81 L Red Cell Distribution Width 16.2 H Sodium Level 143 White Blood Count 18.3 H Test 06/02/16 11:11 06/02/16 13:47 Bedside Glucose 221 H 257 H Medications Medications Current Medications Amlodipine Besylate (Norvasc) 10 mg DAILY PO Last administered on 06/01/16 09: 10; Admin Dose 10 MG; Start 05/30/16 at 09:00 Latanoprost (Xalatan) 1 drop HS BOTH EYES Last administered on 06/01/16 21:48; Admin Dose 1 DROP; Start 05/29/16 at 21:00 Clonidine (Catapres) 0.1 mg TID PO Last administered on 06/01/16 21:01; Admin Dose 0.1 MG; Start 05/29/16 at 21:00 Fluoxetine HCl (Prozac) 20 mg DAILY PO Last administered on 06/01/16 09:11; Admin Dose 20 MG; Start 05/30/16 at 09:00 Gabapentin (Neurontin) 100 mg TID PO Last administered on 06/01/16 21:01; Admin Dose 100 MG; Start 05/29/16 at 21:00 Hydralazine HCl (Apresoline) 50 mg TID PO Last administered on 06/01/16 21:01; Admin Dose 50 MG; Start 05/29/16 at 21:00 Hydromorphone HCl (Dilaudid) 2 mg Q4H PRN PO PAIN; Start 05/29/16 at 18:00 Losartan Potassium (Cozaar) 50 mg DAILY PO Last administered on 06/01/16 09:09 ; Admin Dose 50 MG; Start 2/3/17 at 09:00 Methocarbamol (Robaxin) 500 mg DAILY PO Last administered on 06/01/16 09:11; Admin Dose 500 MG; Start 05/30/16 at 09:00 Acetaminophen (Tylenol Tab) 650 mg Q6H PRN PO PAIN LEVEL 1-3 OR FEVER Last administered on 05/30/16 02:17; Admin Dose 650 MG; Start 05/29/16 at 18:00 Docusate Sodium (Colace) 100 mg Q12H PRN PO CONSTIPATION; Start 05/29/16 at 18: 00 Magnesium Hydroxide (Milk Of Mag) 30 ml DAILY PRN PO CONSTIPATION; Start at 18:00 Bisacodyl (Dulcolax) 5 mg DAILY PRN PO CONSTIPATION; Start 05/29/16 at 18:00 Pantoprazole (Protonix Tab) 40 mg DAILY@06 PO Last administered on 06/02/16 05: 50; Admin Dose 40 MG; Start 05/30/16 at 06:00 Enoxaparin Sodium (Lovenox) 30 mg DAILY SC Last administered on 06/01/16 09:13 ; Admin Dose 30 MG; Start 05/30/16 at 09:00 Miscellaneous Information 1 ea NOTE XX ; Start 05/29/16 at 19:00 Glucose (Glutose) 15 gm Q15M PRN PO DECREASED GLUCOSE; Start 05/29/16 at 19:00 Glucose (Glutose) 22.5 gm Q15M PRN PO DECREASED GLUCOSE; Start 05/29/16 at 19:00 Dextrose (D50w Syringe) 25 ml Q15M PRN IV DECREASED GLUCOSE; Start 05/29/16 at 19:00 Dextrose (D50w Syringe) 50 ml Q15M PRN IV DECREASED GLUCOSE; Start 05/29/16 at 19:00 Glucagon (Glucagen) 1 mg Q15M PRN IM DECREASED GLUCOSE; Start 05/29/16 at 19:00 Glucose (Glutose) 15 gm Q15M PRN BUCCAL DECREASED GLUCOSE; Start 05/29/16 at 19: 00 Hydralazine HCl (Apresoline) 20 mg Q6H PRN IV sbp >170 Last administered on 05/30 09:21; Admin Dose 20 MG; Start 05/30/16 at 09:30 Acetaminophen (Tylenol Supp) 650 mg Q6H PRN [place] fever Last administered on 09:17; Admin Dose 650 MG; Start 05/30/16 at 10:30 Metoprolol Tartrate (Lopressor) 25 mg BID PO Last administered on 06/01/16 21: 00; Admin Dose 25 MG; Start 05/30/16 at 21:00 Aspirin 81 mg 81 mg DAILY PO Last administered on 06/01/16 09:08; Admin Dose 81 MG; Start 05/31/16 at 09:00 Ondansetron HCl/ Dextrose (Zofran Inj/D5W) 54 ml @ 108 mls/hr Q6H PRN IV NAUSEA AND/OR VOMITING; Start 05/30/16 at 19:00 Ondansetron HCl (Zofran Inj) 4 mg Q6H PRN IV NAUSEA AND/OR VOMITING Last administered on 06/01/16 09:12; Admin Dose 4 MG; Start 05/30/16 at 19:30 Tobramycin TOBRAMYCIN PER PHARMACY NOTE XX ; Start 05/30/16 at 23:30 Piperacillin Sod/ Tazobactam Sod (Zosyn 2.25gm/ 50ml (Pmx)) 50 ml @ 100 mls/hr Q8 IVPB Last administered on 06/02/16 05:50; Admin Dose 100 MLS/HR; Start at 22:00 Nitroglycerin (Nitroglycerin 0.4 Mg/Hr) 1 patch DAILY PRN TRANSDERM CHEST PAIN ; Start 06/01/16 at 16:30 Insulin Glargine (Lantus) 10 unit DAILY@08 SC Last administered on 06/02/16 08: 45; Admin Dose 10 UNIT; Start 06/02/16 at 08:00 PAULA CHANEL NP Jun 02, 2016 16:32
[2016-06-02] MEDS ORDERED: VANCOMYCIN IV PER PHARMACY XX SCH (17:00)
--- NOTE | 2016-06-02 17:29 | CONS ---
Date/Time of Note Date/Time of Note DATE: 06/02/16 TIME: 17:25 Assessment/Plan Assessment/Plan Chief Complaint/Hosp Course IMPRESSION: 1. Positive troponin, assess significance. Assess for acute coronary syndrome. 2. Shortness of breath, assess for congestive heart failure. 3. Abnormal electrocardiogram. Assess for acute coronary syndrome. 4. Pneumonia by chest x-ray and chest CT. 5. Chest mass and hilar lymphadenopathy.-by CT posssibly only infiltrate and not mass 6. End-stage renal disease on hemodialysis. 7. Leukocytosis. 8. Anemia. 9. Cardiomyopathy-LVEF 45% by echo Recc: -Tele -Continue abx;'s and f/u cx data -Continue asa -Continue norvasc/clonidine/BB -PRN SL NTG for recurrent chest bpain -Am Lexiscab to assess significance of troponin and chest pain Problems: Consultation Date/Type/Reason Admit Date/Time May 29, 2016 at 14:54 Initial Consult Date 05/30/2016 Type of Consultation: Cardiology Reason for Consultation Positive troponin Referring Provider: MICHELLE MCDANIEL MD Exam/Review of Systems Vital Signs Vitals Vital Signs Date Time Temp Pulse Resp B/P Pulse Ox O2 Delivery O2 Flow Rate FiO2 06/02/16 17:15 91 18 06/02/16 15:28 98.3 121/59 98 06/02/16 11:24 Nasal Cannula 2.0 Intake and Output 06/01/16 06/01/16 06/02/16 15:00 23:00 07:00 Intake Total 100 ml 750 ml Output Total 0 ml Balance 100 ml 750 ml 0 ml Exam Review of Systems: CONSTITUTIONAL: No fevers, chills. PULMONARY: No sob CARDIOVASCULAR: No chest pain/palpitations GASTROINTESTINAL: No nausea/vomiting. GENITOURINARY: No hematuria/dysuria. MUSCULOSKELETAL: No myagias/arthalgias. PSYCHIATRIC: The patient denies depression. NEUROLOGIC: No weakness Constitutional: alert Psych: no complaints ENMT: mucosa pink and moist Neck: jvd (9 cm water), supple Respiratory: diminished breath sounds (at bases/B) Cardiovascular: regular rate and rhythm Gastrointestinal: non-tender, soft Musculoskeletal: muscle tone (normal) Extremities: edema (none) Neurological: other (No focal deficits) Results Result Diagram: 06/02/1625 06/02/16724 Results 24 hrs Laboratory Tests Test 2/5/17 20:59 06/02/16 07:25 06/02/16 08:39 06/02/16 11:11 Bedside Glucose 305 H 300 H 221 H Anion Gap 27 H Basophils # 0.0 Basophils % 0.1 Blood Morphology Comment Blood Urea Nitrogen 78 H Calcium Level 9.0 Carbon Dioxide Level 25 Chloride Level 96 L Creatinine 7.08 H Differential Comment AUTO w/SCAN Eosinophils # 0.0 Eosinophils % 0.1 Glucose Level 318 H Hematocrit 35.3 L Hemoglobin 11.9 L Lymphocytes # 0.4 L Lymphocytes % 2.3 L Mean Corpuscular Hemoglobin 31.1 Mean Corpuscular Hemoglobin Concent 33.6 Mean Corpuscular Volume 92.6 Mean Platelet Volume 8.6 Monocytes # 0.6 Monocytes % 3.4 Neutrophils # 17.2 H Neutrophils % 94.1 H Nucleated Red Blood Cells # 0.0 Nucleated Red Blood Cells % 0.0 Platelet Count 273 Potassium Level 4.8 Red Blood Count 3.81 L Red Cell Distribution Width 16.2 H Sodium Level 143 White Blood Count 18.3 H Test 06/02/16 13:47 06/02/16 17:01 Bedside Glucose 257 H 172 Medications Medications Current Medications Amlodipine Besylate (Norvasc) 10 mg DAILY PO Last administered on 06/01/16 09: 10; Admin Dose 10 MG; Start 05/30/16 at 09:00 Latanoprost (Xalatan) 1 drop HS BOTH EYES Last administered on 06/01/16 21:48; Admin Dose 1 DROP; Start 05/29/16 at 21:00 Clonidine (Catapres) 0.1 mg TID PO Last administered on 06/01/16 21:01; Admin Dose 0.1 MG; Start 05/29/16 at 21:00 Fluoxetine HCl (Prozac) 20 mg DAILY PO Last administered on 06/01/16 09:11; Admin Dose 20 MG; Start 05/30/16 at 09:00 Gabapentin (Neurontin) 100 mg TID PO Last administered on 06/01/16 21:01; Admin Dose 100 MG; Start 05/29/16 at 21:00 Hydralazine HCl (Apresoline) 50 mg TID PO Last administered on 06/01/16 21:01; Admin Dose 50 MG; Start 05/29/16 at 21:00 Hydromorphone HCl (Dilaudid) 2 mg Q4H PRN PO PAIN; Start 05/29/16 at 18:00 Losartan Potassium (Cozaar) 50 mg DAILY PO Last administered on 06/01/16 09:09 ; Admin Dose 50 MG; Start 05/30/16 at 09:00 Methocarbamol (Robaxin) 500 mg DAILY PO Last administered on 06/01/16 09:11; Admin Dose 500 MG; Start 05/30/16 at 09:00 Acetaminophen (Tylenol Tab) 650 mg Q6H PRN PO PAIN LEVEL 1-3 OR FEVER Last administered on 05/30/16 02:17; Admin Dose 650 MG; Start 05/29/16 at 18:00 Docusate Sodium (Colace) 100 mg Q12H PRN PO CONSTIPATION; Start 05/29/16 at 18: 00 Magnesium Hydroxide (Milk Of Mag) 30 ml DAILY PRN PO CONSTIPATION; Start at 18:00 Bisacodyl (Dulcolax) 5 mg DAILY PRN PO CONSTIPATION; Start 05/29/16 at 18:00 Pantoprazole (Protonix Tab) 40 mg DAILY@06 PO Last administered on 06/02/16 05: 50; Admin Dose 40 MG; Start 05/30/16 at 06:00 Enoxaparin Sodium (Lovenox) 30 mg DAILY SC Last administered on 06/01/16 09:13 ; Admin Dose 30 MG; Start 05/30/16 at 09:00 Miscellaneous Information 1 ea NOTE XX ; Start 05/29/16 at 19:00 Glucose (Glutose) 15 gm Q15M PRN PO DECREASED GLUCOSE; Start 05/29/16 at 19:00 Glucose (Glutose) 22.5 gm Q15M PRN PO DECREASED GLUCOSE; Start 05/29/16 at 19:00 Dextrose (D50w Syringe) 25 ml Q15M PRN IV DECREASED GLUCOSE; Start 05/29/16 at 19:00 Dextrose (D50w Syringe) 50 ml Q15M PRN IV DECREASED GLUCOSE; Start 05/29/16 at 19:00 Glucagon (Glucagen) 1 mg Q15M PRN IM DECREASED GLUCOSE; Start 05/29/16 at 19:00 Glucose (Glutose) 15 gm Q15M PRN BUCCAL DECREASED GLUCOSE; Start 05/29/16 at 19: 00 Hydralazine HCl (Apresoline) 20 mg Q6H PRN IV sbp >170 Last administered on 05/30 09:21; Admin Dose 20 MG; Start 05/30/16 at 09:30 Acetaminophen (Tylenol Supp) 650 mg Q6H PRN [place] fever Last administered on 09:17; Admin Dose 650 MG; Start 05/30/16 at 10:30 Metoprolol Tartrate (Lopressor) 25 mg BID PO Last administered on 06/01/16 21: 00; Admin Dose 25 MG; Start 05/30/16 at 21:00 Aspirin 81 mg 81 mg DAILY PO Last administered on 06/01/16 09:08; Admin Dose 81 MG; Start 05/31/16 at 09:00 Ondansetron HCl/ Dextrose (Zofran Inj/D5W) 54 ml @ 108 mls/hr Q6H PRN IV NAUSEA AND/OR VOMITING; Start 05/30/16 at 19:00 Ondansetron HCl (Zofran Inj) 4 mg Q6H PRN IV NAUSEA AND/OR VOMITING Last administered on 06/01/16 09:12; Admin Dose 4 MG; Start 05/30/16 at 19:30 Tobramycin TOBRAMYCIN PER PHARMACY NOTE XX ; Start 05/30/16 at 23:30 Piperacillin Sod/ Tazobactam Sod (Zosyn 2.25gm/ 50ml (Pmx)) 50 ml @ 100 mls/hr Q8 IVPB Last administered on 06/02/16 05:50; Admin Dose 100 MLS/HR; Start at 22:00 Nitroglycerin (Nitroglycerin 0.4 Mg/Hr) 1 patch DAILY PRN TRANSDERM CHEST PAIN ; Start 06/01/16 at 16:30 Insulin Glargine (Lantus) 10 unit DAILY@08 SC Last administered on 06/02/16 08: 45; Admin Dose 10 UNIT; Start 06/02/16 at 08:00 ANNAMARIE SANTANA Jun 02, 2016 17:29
[2016-06-02] MEDS: ONDANSETRON 4 MG INJ IV PRN (18:02)
[2016-06-02] MEDS ORDERED: VANCOMYCIN 1 GM in NS 250 ML IVPB SCH (18:30)
[2016-06-02] MEDS: LATANOPROST 0.005% 2.5 ML OPH BOTH EYES SCH (21:18)
[2016-06-02] MEDS: TOBRAMYCIN 80 MG in SOD CHLORIDE 0.9% 50 ML IVPB SCH (21:19)
[2016-06-02] MEDS: METOCLOPRAMIDE 10 MG TAB PO PRN (21:32)
--- NOTE | 2016-06-02 22:32 | PN ---
Date/Time of Note Date/Time of Note DATE: 06/02/16 TIME: 22:31 Assessment/Plan VTE Prophylaxis VTE Prophylaxis Intervention: other Lines/Catheters IV Catheter Type (from Nrs): Peripheral IV Assessment/Plan Chief Complaint/Hosp Course IMPRESSION: 1. Patient has pneumonia.better 2. Lung mass.better 3. Pulmonary edema. 4. The patient has hypertension, diabetes mellitus, leukocytosis, , anemia, atherosclerotic heart disease, positive troponin. 5 sepsis plan hd per cardio pulmonary antibiotic Problems: Subjective 24 Hr Interval Summary Respiratory: no complaints Cardiovascular: no complaints Gastrointestinal: no complaints Exam/Review of Systems Vital Signs Vitals Vital Signs Date Time Temp Pulse Resp B/P Pulse Ox O2 Delivery O2 Flow Rate FiO2 06/02/16 20:12 110 06/02/16 20:11 98.2 18 163/74 95 06/02/16 19:37 3.0 06/02/16 19:34 Nasal Cannula Intake and Output 06/01/16 06/01/16 06/02/16 15:00 23:00 07:00 Intake Total 100 ml 750 ml Output Total 0 ml Balance 100 ml 750 ml 0 ml Exam Neck: supple Respiratory: clear to auscultation Cardiovascular: regular rate and rhythm Gastrointestinal: soft Results Result Diagram: 06/02/16 0725 06/02/16 0725 Results 24 hrs Laboratory Tests Test 06/02/16 07:25 06/02/16 08:39 06/02/16 11:11 06/02/16 13:47 Anion Gap 27 H Basophils # 0.0 Basophils % 0.1 Blood Morphology Comment Blood Urea Nitrogen 78 H Calcium Level 9.0 Carbon Dioxide Level 25 Chloride Level 96 L Creatinine 7.08 H Differential Comment AUTO w/SCAN Eosinophils # 0.0 Eosinophils % 0.1 Glucose Level 318 H Hematocrit 35.3 L Hemoglobin 11.9 L Lymphocytes # 0.4 L Lymphocytes % 2.3 L Mean Corpuscular Hemoglobin 31.1 Mean Corpuscular Hemoglobin Concent 33.6 Mean Corpuscular Volume 92.6 Mean Platelet Volume 8.6 Monocytes # 0.6 Monocytes % 3.4 Neutrophils # 17.2 H Neutrophils % 94.1 H Nucleated Red Blood Cells # 0.0 Nucleated Red Blood Cells % 0.0 Platelet Count 273 Potassium Level 4.8 Red Blood Count 3.81 L Red Cell Distribution Width 16.2 H Sodium Level 143 White Blood Count 18.3 H Bedside Glucose 300 H 221 H 257 H Test 06/02/16 17:01 06/02/16 21:26 Bedside Glucose 172 207 Medications Medications Current Medications Amlodipine Besylate (Norvasc) 10 mg DAILY PO Last administered on 06/01/16 09: 10; Admin Dose 10 MG; Start 05/30/16 at 09:00 Latanoprost (Xalatan) 1 drop HS BOTH EYES Last administered on 06/02/16 21:18; Admin Dose 1 DROP; Start 05/29/16 at 21:00 Clonidine (Catapres) 0.1 mg TID PO Last administered on 06/02/16 21:21; Admin Dose 0.1 MG; Start 05/29/16 at 21:00 Fluoxetine HCl (Prozac) 20 mg DAILY PO Last administered on 06/01/16 09:11; Admin Dose 20 MG; Start 05/30/16 at 09:00 Gabapentin (Neurontin) 100 mg TID PO Last administered on 06/02/16 21:20; Admin Dose 100 MG; Start 05/29/16 at 21:00 Hydralazine HCl (Apresoline) 50 mg TID PO Last administered on 06/02/16 21:22; Admin Dose 50 MG; Start 05/29/16 at 21:00 Hydromorphone HCl (Dilaudid) 2 mg Q4H PRN PO PAIN; Start 05/29/16 at 18:00 Losartan Potassium (Cozaar) 50 mg DAILY PO Last administered on 06/01/16 09:09 ; Admin Dose 50 MG; Start 05/30/16 at 09:00 Methocarbamol (Robaxin) 500 mg DAILY PO Last administered on 06/01/16 09:11; Admin Dose 500 MG; Start 05/30/16 at 09:00 Acetaminophen (Tylenol Tab) 650 mg Q6H PRN PO PAIN LEVEL 1-3 OR FEVER Last administered on 05/30/16 02:17; Admin Dose 650 MG; Start 05/29/16 at 18:00 Docusate Sodium (Colace) 100 mg Q12H PRN PO CONSTIPATION; Start 05/29/16 at 18: 00 Magnesium Hydroxide (Milk Of Mag) 30 ml DAILY PRN PO CONSTIPATION; Start at 18:00 Bisacodyl (Dulcolax) 5 mg DAILY PRN PO CONSTIPATION; Start 05/29/16 at 18:00 Pantoprazole (Protonix Tab) 40 mg DAILY@06 PO Last administered on 06/02/16 05: 50; Admin Dose 40 MG; Start 05/30/16 at 06:00 Enoxaparin Sodium (Lovenox) 30 mg DAILY SC Last administered on 06/01/16 09:13 ; Admin Dose 30 MG; Start 05/30/16 at 09:00 Miscellaneous Information 1 ea NOTE XX ; Start 05/29/16 at 19:00 Glucose (Glutose) 15 gm Q15M PRN PO DECREASED GLUCOSE; Start 05/29/16 at 19:00 Glucose (Glutose) 22.5 gm Q15M PRN PO DECREASED GLUCOSE; Start 05/29/16 at 19:00 Dextrose (D50w Syringe) 25 ml Q15M PRN IV DECREASED GLUCOSE; Start 05/29/16 at 19:00 Dextrose (D50w Syringe) 50 ml Q15M PRN IV DECREASED GLUCOSE; Start 05/29/16 at 19:00 Glucagon (Glucagen) 1 mg Q15M PRN IM DECREASED GLUCOSE; Start 05/29/16 at 19:00 Glucose (Glutose) 15 gm Q15M PRN BUCCAL DECREASED GLUCOSE; Start 05/29/16 at 19: 00 Hydralazine HCl (Apresoline) 20 mg Q6H PRN IV sbp >170 Last administered on 05/30 09:21; Admin Dose 20 MG; Start 05/30/16 at 09:30 Acetaminophen (Tylenol Supp) 650 mg Q6H PRN [place] fever Last administered on 09:17; Admin Dose 650 MG; Start 05/30/16 at 10:30 Metoprolol Tartrate (Lopressor) 25 mg BID PO Last administered on 06/02/16 21: 21; Admin Dose 25 MG; Start 05/30/16 at 21:00 Aspirin 81 mg 81 mg DAILY PO Last administered on 06/01/16 09:08; Admin Dose 81 MG; Start 05/31/16 at 09:00 Ondansetron HCl/ Dextrose (Zofran Inj/D5W) 54 ml @ 108 mls/hr Q6H PRN IV NAUSEA AND/OR VOMITING; Start 05/30/16 at 19:00 Ondansetron HCl (Zofran Inj) 4 mg Q6H PRN IV NAUSEA AND/OR VOMITING Last administered on 06/02/16 18:02; Admin Dose 4 MG; Start 05/30/16 at 19:30 Tobramycin TOBRAMYCIN PER PHARMACY NOTE XX ; Start 05/30/16 at 23:30 Piperacillin Sod/ Tazobactam Sod (Zosyn 2.25gm/ 50ml (Pmx)) 50 ml @ 100 mls/hr Q8 IVPB Last administered on 06/02/16 21:20; Admin Dose 100 MLS/HR; Start at 22:00 Nitroglycerin (Nitroglycerin 0.4 Mg/Hr) 1 patch DAILY PRN TRANSDERM CHEST PAIN ; Start 06/01/16 at 16:30 Insulin Glargine 10 unit 10 unit DAILY@08 SC Last administered on 06/02/16 08: 45; Admin Dose 10 UNIT; Start 06/02/16 at 08:00 Vancomycin HCl (Vancocin) 250 ml @ 125 mls/hr ONCE IVPB Last administered on 19:49; Admin Dose 125 MLS/HR; Start 06/02/16 at 18:30; Stop 06/02/16 at 23 :00 Nitroglycerin (Nitroglycerin (Sl Tab) 0.4 Mg) 1 tab Q5M PRN SL ANGINA; Start at 17:30 MICHELLE MCDANIEL MD Jun 02, 2016 22:32
[2016-06-03] VITALS (12 sets, daily range): BP systolic 109–162; BP diastolic 57–75; PULSE 77–95; RESP 16–19
[2016-06-03] MEDS: ALBUTEROL/IPRATROPIUM (NEB) 3 ML AMP INH SCH ×4 (02:44→19:52)
[2016-06-03] MEDS: ACETAMINOPHEN 325 MG TAB PO PRN ×2 (03:01→22:29)
[2016-06-03] MEDS: PIPER-TAZO 2.25 GM (PMX) 50 ML IVPB SCH ×3 (05:56→22:29)
[2016-06-03] MEDS: PANTOPRAZOLE (EC) 40 MG TAB PO SCH (05:56)
[2016-06-03 07:52] LABS: CHOL/HDL RATIO 3.7 RATIO
[2016-06-03 08:16] LABS: CK-MB 0.45 ng/ml (0.0-2.4); TROPONIN-I 0.103 ng/ml (0.00-0.12)
[2016-06-03] MEDS: SEVELAMER CARBONATE 0.8 GM PKT PO SCH ×3 (08:59→17:49)
[2016-06-03] MEDS: ASPIRIN 81 MG TAB PO SCH (08:59)
[2016-06-03] MEDS: AMLODIPINE 10 MG TAB PO SCH (09:00)
[2016-06-03] MEDS: LOSARTAN 50 MG TAB PO SCH (09:00)
[2016-06-03] MEDS: CALCIUM ACETATE 667 MG CAP PO SCH ×3 (09:00→17:49)
[2016-06-03] MEDS: METOPROLOL 25 MG TAB PO SCH ×2 (09:01→20:48)
[2016-06-03] MEDS: GABAPENTIN 100 MG CAP PO SCH ×3 (09:01→20:48)
[2016-06-03] MEDS: METHOCARBAMOL 500 MG TAB PO SCH (09:01)
[2016-06-03] MEDS: FLUOXETINE 20 MG CAP PO SCH (09:01)
[2016-06-03] MEDS: ENOXAPARIN 30 MG/0.3 ML SYG SC SCH (09:02)
[2016-06-03] MEDS: INSULIN ASPART [NOVOLOG] 3 ML PEN SC SCH ×4 (09:04→20:53)
[2016-06-03] MEDS: INSULIN GLARGINE [LANtus] 3 ML PEN SC SCH (09:04)
--- NOTE | 2016-06-03 09:16 | CONS ---
Date/Time of Note Date/Time of Note DATE: 06/03/16 TIME: 09:13 Assessment/Plan Assessment/Plan Additional Assessment/Plan 1. Positive troponin, assess significance. Assess for acute coronary syndrome - PNA better now, will be able to lay flat for the Stres test - will schedule for tomorrow. 2. Shortness of breath, assess for congestive heart failure- better now, might be multifactorial 3. Abnormal electrocardiogram. Assess for acute coronary syndrome. 4. Pneumonia by chest x-ray and chest CT- on anti-Bx 5. Chest mass and hilar lymphadenopathy.-by CT posssibly only infiltrate and not mass - defer to primary 6. End-stage renal disease on hemodialysis- Rx as needed 7. Leukocytosis. 8. Anemia. 9. Cardiomyopathy-LVEF 45% by echo Consultation Date/Type/Reason Admit Date/Time May 29, 2016 at 14:54 Initial Consult Date Type of Consultation: Cardiology Referring Provider: MICHELLE MCDANIEL MD 24 HR Interval Summary Free Text/Dictation PNA better now, will be able to lay flat for the Stres test - will schedule for tomorrow. ROS: No fever, no chills, no nausea, no vomiting, no diarrhea/constipation No recent weight changes No chest pain, no PND, no orthopnea, SOB better No dizziness, blurred vision No thirst, no heat or cold intolerance Exam/Review of Systems Vital Signs Vitals Vital Signs Date Time Temp Pulse Resp B/P Pulse Ox O2 Delivery O2 Flow Rate FiO2 06/03/16 08:40 82 22 95 Nasal Cannula 3.0 06/03/16 08:03 98.1 162/75 Intake and Output 06/02/16 06/02/16 06/03/16 14:59 22:59 06:59 Intake Total 1032 ml 650 ml Output Total 2500 ml 0 ml Balance -1468 ml 650 ml Exam General: WN/WD/NAD, AOx 2-3 HEENT: Unicetric/atraumatic/EOMI (follow commands) NECK: JVD elevated, no thyromegaly Lymph: no lymphadenopathy HEART: regular with no S3, II/ systolic murmur at apex LUNGS: Coarse sounds ABD: soft, NT, ND, +BS : Intact Neuro: non focal SKIN: chronic changes EXT: trace edema, better Results Result Diagram: 06/02/1672406/02/16724 Results 24 hrs Laboratory Tests Test 06/02/16 11:11 06/02/16 13:47 06/02/16 17:01 06/02/16 21:26 Bedside Glucose 221 H 257 H 172 207 Test 06/03/16 00:18 06/03/16 06:36 06/03/16 08:01 Bedside Glucose 220 188 Cholesterol Level 144 Cholesterol/HDL Ratio 3.7 Creatine Kinase 67 Creatine Kinase Index 0.7 Creatinine Kinase MB (Mass) 0.45 HDL Cholesterol 38 LDL Cholesterol, Calculated 77 Triglycerides Level 147 Troponin I 0.103 Medications Medications Current Medications Amlodipine Besylate (Norvasc) 10 mg DAILY PO Last administered on 06/03/16 09: 00; Admin Dose 10 MG; Start 05/30/16 at 09:00 Latanoprost (Xalatan) 1 drop HS BOTH EYES Last administered on 06/02/16 21:18; Admin Dose 1 DROP; Start 05/29/16 at 21:00 Clonidine (Catapres) 0.1 mg TID PO Last administered on 06/03/16 09:01; Admin Dose 0.1 MG; Start 05/29/16 at 21:00 Fluoxetine HCl (Prozac) 20 mg DAILY PO Last administered on 06/03/16 09:01; Admin Dose 20 MG; Start 05/30/16 at 09:00 Gabapentin (Neurontin) 100 mg TID PO Last administered on 06/03/16 09:01; Admin Dose 100 MG; Start 05/29/16 at 21:00 Hydralazine HCl (Apresoline) 50 mg TID PO Last administered on 06/03/16 09:00; Admin Dose 50 MG; Start 05/29/16 at 21:00 Hydromorphone HCl (Dilaudid) 2 mg Q4H PRN PO PAIN; Start 05/29/16 at 18:00 Losartan Potassium (Cozaar) 50 mg DAILY PO Last administered on 06/03/16 09:00 ; Admin Dose 50 MG; Start 05/30/16 at 09:00 Methocarbamol (Robaxin) 500 mg DAILY PO Last administered on 06/03/16 09:01; Admin Dose 500 MG; Start 05/30/16 at 09:00 Acetaminophen (Tylenol Tab) 650 mg Q6H PRN PO PAIN LEVEL 1-3 OR FEVER Last administered on 06/03/16 03:01; Admin Dose 650 MG; Start 05/29/16 at 18:00 Docusate Sodium (Colace) 100 mg Q12H PRN PO CONSTIPATION; Start 05/29/16 at 18: 00 Magnesium Hydroxide (Milk Of Mag) 30 ml DAILY PRN PO CONSTIPATION; Start at 18:00 Bisacodyl (Dulcolax) 5 mg DAILY PRN PO CONSTIPATION; Start 05/29/16 at 18:00 Pantoprazole (Protonix Tab) 40 mg DAILY@06 PO Last administered on 06/03/16 05: 56; Admin Dose 40 MG; Start 05/30/16 at 06:00 Enoxaparin Sodium (Lovenox) 30 mg DAILY SC Last administered on 06/03/16 09:02 ; Admin Dose 30 MG; Start 05/30/16 at 09:00 Miscellaneous Information 1 ea NOTE XX ; Start 05/29/16 at 19:00 Glucose (Glutose) 15 gm Q15M PRN PO DECREASED GLUCOSE; Start 05/29/16 at 19:00 Glucose (Glutose) 22.5 gm Q15M PRN PO DECREASED GLUCOSE; Start 05/29/16 at 19:00 Dextrose (D50w Syringe) 25 ml Q15M PRN IV DECREASED GLUCOSE; Start 05/29/16 at 19:00 Dextrose (D50w Syringe) 50 ml Q15M PRN IV DECREASED GLUCOSE; Start 05/29/16 at 19:00 Glucagon (Glucagen) 1 mg Q15M PRN IM DECREASED GLUCOSE; Start 05/29/16 at 19:00 Glucose (Glutose) 15 gm Q15M PRN BUCCAL DECREASED GLUCOSE; Start 05/29/16 at 19: 00 Hydralazine HCl (Apresoline) 20 mg Q6H PRN IV sbp >170 Last administered on 05/30 09:21; Admin Dose 20 MG; Start 05/30/16 at 09:30 Acetaminophen (Tylenol Supp) 650 mg Q6H PRN [place] fever Last administered on 09:17; Admin Dose 650 MG; Start 05/30/16 at 10:30 Metoprolol Tartrate (Lopressor) 25 mg BID PO Last administered on 06/03/16 09: 01; Admin Dose 25 MG; Start 05/30/16 at 21:00 Aspirin 81 mg 81 mg DAILY PO Last administered on 06/03/16 08:59; Admin Dose 81 MG; Start 05/31/16 at 09:00 Ondansetron HCl/ Dextrose (Zofran Inj/D5W) 54 ml @ 108 mls/hr Q6H PRN IV NAUSEA AND/OR VOMITING; Start 05/30/16 at 19:00 Ondansetron HCl (Zofran Inj) 4 mg Q6H PRN IV NAUSEA AND/OR VOMITING Last administered on 06/02/16 18:02; Admin Dose 4 MG; Start 05/30/16 at 19:30 Tobramycin TOBRAMYCIN PER PHARMACY NOTE XX ; Start 05/30/16 at 23:30 Piperacillin Sod/ Tazobactam Sod (Zosyn 2.25gm/ 50ml (Pmx)) 50 ml @ 100 mls/hr Q8 IVPB Last administered on 06/03/16 05:56; Admin Dose 100 MLS/HR; Start at 22:00 Nitroglycerin (Nitroglycerin 0.4 Mg/Hr) 1 patch DAILY PRN TRANSDERM CHEST PAIN ; Start 06/01/16 at 16:30 Insulin Glargine (Lantus) 10 unit DAILY@08 SC Last administered on 06/03/16 09: 04; Admin Dose 10 UNIT; Start 06/02/16 at 08:00 Nitroglycerin (Nitroglycerin (Sl Tab) 0.4 Mg) 1 tab Q5M PRN SL ANGINA; Start at 17:30 TOBI CHERRY MD Jun 03, 2016 09:16
--- NOTE | 2016-06-03 14:04 | CONS ---
Date/Time of Note Date/Time of Note DATE: 06/03/16 TIME: 14:02 Assessment/Plan Assessment/Plan Chief Complaint/Hosp Course SUBJECTIVE: Patient is alert, lying comfortably in bed, family present. She is in no distress. Afebrile INDWELLINGS: Right upper extremity AV fistula. MICROBIOLOGY: Blood culture, MRSA screen and stool for C. diff negative. ANTIMICROBIALS: Patient is on Zosyn, tobramycin day #4 and vancomycin. PHYSICAL EXAMINATION: GENERAL: This is a fragile and vancomycin. This is a fragile, elderly woman who is alert, in no distress. HEENT: Head atraumatic, normocephalic. Sclerae anicteric. Buccal mucosa pink. NECK: Supple, trachea midline. CHEST: Rise symmetrical. Breath sounds diminished to bases. HEART: S1, S2. ABDOMEN: Soft. Bowel tones present. EXTREMITIES: Without cyanosis. ASSESSMENT: 1. Systemic inflammatory response syndrome with low grade fevers and leukocytosis. 2. ? Lung mass . 3. Post-obstructive pneumonia. 4. End-stage renal disease, hemodialysis dependent. 5. Diabetes. 6. CAD/CM, + Troponin PLAN: The patient remains stable. Repeat CT of the chest revealed improvement, no bx done, continue abx, cardiology rec-s noted==> pending stress test [facility] staff Problems: Consultation Date/Type/Reason Admit Date/Time May 29, 2016 at 14:54 Type of Consultation: id Referring Provider: MICHELLE MCDANIEL MD Exam/Review of Systems Vital Signs Vitals Vital Signs Date Time Temp Pulse Resp B/P Pulse Ox O2 Delivery O2 Flow Rate FiO2 06/03/16 12:30 77 06/03/16 11:40 98.3 16 122/62 95 06/03/16 08:40 Nasal Cannula 3.0 Intake and Output 06/02/16 06/02/16 06/03/16 15:00 23:00 07:00 Intake Total 1082 ml 600 ml Output Total 2500 ml 0 ml Balance -1418 ml 600 ml Results Result Diagram: 06/02/16 0725 06/02/16 0725 Results 24 hrs Laboratory Tests Test 06/02/16 17:01 06/02/16 21:26 06/03/16 00:18 06/03/16 06:36 Bedside Glucose 172 207 220 Cholesterol Level 144 Cholesterol/HDL Ratio 3.7 Creatine Kinase 67 Creatine Kinase Index 0.7 Creatinine Kinase MB (Mass) 0.45 HDL Cholesterol 38 LDL Cholesterol, Calculated 77 Triglycerides Level 147 Troponin I 0.103 Test 06/03/16 08:01 06/03/16 11:58 Bedside Glucose 188 200 Medications Medications Current Medications Amlodipine Besylate (Norvasc) 10 mg DAILY PO Last administered on 06/03/16 09: 00; Admin Dose 10 MG; Start 05/30/16 at 09:00 Latanoprost (Xalatan) 1 drop HS BOTH EYES Last administered on 06/02/16 21:18; Admin Dose 1 DROP; Start 05/29/16 at 21:00 Clonidine (Catapres) 0.1 mg TID PO Last administered on 06/03/16 13:53; Admin Dose 0.1 MG; Start 05/29/16 at 21:00 Fluoxetine HCl (Prozac) 20 mg DAILY PO Last administered on 06/03/16 09:01; Admin Dose 20 MG; Start 05/30/16 at 09:00 Gabapentin (Neurontin) 100 mg TID PO Last administered on 06/03/16 13:53; Admin Dose 100 MG; Start 05/29/16 at 21:00 Hydralazine HCl (Apresoline) 50 mg TID PO Last administered on 06/03/16 13:53; Admin Dose 50 MG; Start 05/29/16 at 21:00 Hydromorphone HCl (Dilaudid) 2 mg Q4H PRN PO PAIN; Start 05/29/16 at 18:00 Losartan Potassium (Cozaar) 50 mg DAILY PO Last administered on 06/03/16 09:00 ; Admin Dose 50 MG; Start 05/30/16 at 09:00 Methocarbamol (Robaxin) 500 mg DAILY PO Last administered on 06/03/16 09:01; Admin Dose 500 MG; Start 05/30/16 at 09:00 Acetaminophen (Tylenol Tab) 650 mg Q6H PRN PO PAIN LEVEL 1-3 OR FEVER Last administered on 06/03/16 03:01; Admin Dose 650 MG; Start 05/29/16 at 18:00 Docusate Sodium (Colace) 100 mg Q12H PRN PO CONSTIPATION; Start 05/29/16 at 18: 00 Magnesium Hydroxide (Milk Of Mag) 30 ml DAILY PRN PO CONSTIPATION; Start at 18:00 Bisacodyl (Dulcolax) 5 mg DAILY PRN PO CONSTIPATION; Start 05/29/16 at 18:00 Pantoprazole (Protonix Tab) 40 mg DAILY@06 PO Last administered on 06/03/16 05: 56; Admin Dose 40 MG; Start 05/30/16 at 06:00 Enoxaparin Sodium (Lovenox) 30 mg DAILY SC Last administered on 06/03/16 09:02 ; Admin Dose 30 MG; Start 05/30/16 at 09:00 Miscellaneous Information 1 ea NOTE XX ; Start 05/29/16 at 19:00 Glucose (Glutose) 15 gm Q15M PRN PO DECREASED GLUCOSE; Start 05/29/16 at 19:00 Glucose (Glutose) 22.5 gm Q15M PRN PO DECREASED GLUCOSE; Start 05/29/16 at 19:00 Dextrose (D50w Syringe) 25 ml Q15M PRN IV DECREASED GLUCOSE; Start 05/29/16 at 19:00 Dextrose (D50w Syringe) 50 ml Q15M PRN IV DECREASED GLUCOSE; Start 05/29/16 at 19:00 Glucagon (Glucagen) 1 mg Q15M PRN IM DECREASED GLUCOSE; Start 05/29/16 at 19:00 Glucose (Glutose) 15 gm Q15M PRN BUCCAL DECREASED GLUCOSE; Start 05/29/16 at 19: 00 Hydralazine HCl (Apresoline) 20 mg Q6H PRN IV sbp >170 Last administered on 05/30 09:21; Admin Dose 20 MG; Start 05/30/16 at 09:30 Acetaminophen (Tylenol Supp) 650 mg Q6H PRN [place] fever Last administered on 09:17; Admin Dose 650 MG; Start 05/30/16 at 10:30 Metoprolol Tartrate (Lopressor) 25 mg BID PO Last administered on 06/03/16 09: 01; Admin Dose 25 MG; Start 05/30/16 at 21:00 Aspirin 81 mg 81 mg DAILY PO Last administered on 06/03/16 08:59; Admin Dose 81 MG; Start 05/31/16 at 09:00 Ondansetron HCl/ Dextrose (Zofran Inj/D5W) 54 ml @ 108 mls/hr Q6H PRN IV NAUSEA AND/OR VOMITING; Start 05/30/16 at 19:00 Ondansetron HCl (Zofran Inj) 4 mg Q6H PRN IV NAUSEA AND/OR VOMITING Last administered on 06/02/16 18:02; Admin Dose 4 MG; Start 05/30/16 at 19:30 Tobramycin TOBRAMYCIN PER PHARMACY NOTE XX ; Start 05/30/16 at 23:30 Piperacillin Sod/ Tazobactam Sod (Zosyn 2.25gm/ 50ml (Pmx)) 50 ml @ 100 mls/hr Q8 IVPB Last administered on 06/03/16 13:58; Admin Dose 100 MLS/HR; Start at 22:00 Nitroglycerin (Nitroglycerin 0.4 Mg/Hr) 1 patch DAILY PRN TRANSDERM CHEST PAIN ; Start 06/01/16 at 16:30 Insulin Glargine (Lantus) 10 unit DAILY@08 SC Last administered on 06/03/16 09: 04; Admin Dose 10 UNIT; Start 06/02/16 at 08:00 Nitroglycerin (Nitroglycerin (Sl Tab) 0.4 Mg) 1 tab Q5M PRN SL ANGINA; Start at 17:30 PAULA CHANEL NP Jun 03, 2016 14:04
--- NOTE | 2016-06-03 14:22 | PN ---
Date/Time of Note Date/Time of Note DATE: 06/03/16 TIME: 14:21 Assessment/Plan VTE Prophylaxis VTE Prophylaxis Intervention: other Lines/Catheters IV Catheter Type (from Nrs): Peripheral IV Assessment/Plan Chief Complaint/Hosp Course IMPRESSION: 1. Patient has pneumonia.better 2. Lung mass.better 3. Pulmonary edema.better 4. The patient has hypertension, diabetes mellitus, leukocytosis, , anemia, atherosclerotic heart disease, positive troponin. 5 sepsis plan hd per cardio pulmonary antibiotic Problems: Subjective 24 Hr Interval Summary Respiratory: no complaints Cardiovascular: no complaints Exam/Review of Systems Vital Signs Vitals Vital Signs Date Time Temp Pulse Resp B/P Pulse Ox O2 Delivery O2 Flow Rate FiO2 06/03/16 14:06 80 20 96 Nasal Cannula 3.0 06/03/16 11:40 98.3 122/62 Intake and Output 06/02/16 06/02/16 06/03/16 15:00 23:00 07:00 Intake Total 1082 ml 600 ml Output Total 2500 ml 0 ml Balance -1418 ml 600 ml Exam Neck: supple Respiratory: clear to auscultation Cardiovascular: regular rate and rhythm Gastrointestinal: soft Musculoskeletal: nl extremities to inspection Extremities: normal pulses Results Result Diagram: 06/02/16 0725 06/02/16 0725 Results 24 hrs Laboratory Tests Test 06/02/16 17:01 06/02/16 21:26 06/03/16 00:18 06/03/16 06:36 Bedside Glucose 172 207 220 Cholesterol Level 144 Cholesterol/HDL Ratio 3.7 Creatine Kinase 67 Creatine Kinase Index 0.7 Creatinine Kinase MB (Mass) 0.45 HDL Cholesterol 38 LDL Cholesterol, Calculated 77 Triglycerides Level 147 Troponin I 0.103 Test 06/03/16 08:01 06/03/16 11:58 Bedside Glucose 188 200 Medications Medications Current Medications Amlodipine Besylate (Norvasc) 10 mg DAILY PO Last administered on 06/03/16 09: 00; Admin Dose 10 MG; Start 05/30/16 at 09:00 Latanoprost (Xalatan) 1 drop HS BOTH EYES Last administered on 06/02/16 21:18; Admin Dose 1 DROP; Start 05/29/16 at 21:00 Clonidine (Catapres) 0.1 mg TID PO Last administered on 06/03/16 13:53; Admin Dose 0.1 MG; Start 05/29/16 at 21:00 Fluoxetine HCl (Prozac) 20 mg DAILY PO Last administered on 06/03/16 09:01; Admin Dose 20 MG; Start 05/30/16 at 09:00 Gabapentin (Neurontin) 100 mg TID PO Last administered on 06/03/16 13:53; Admin Dose 100 MG; Start 05/29/16 at 21:00 Hydralazine HCl (Apresoline) 50 mg TID PO Last administered on 06/03/16 13:53; Admin Dose 50 MG; Start 05/29/16 at 21:00 Hydromorphone HCl (Dilaudid) 2 mg Q4H PRN PO PAIN; Start 05/29/16 at 18:00 Losartan Potassium (Cozaar) 50 mg DAILY PO Last administered on 06/03/16 09:00 ; Admin Dose 50 MG; Start 05/30/16 at 09:00 Methocarbamol (Robaxin) 500 mg DAILY PO Last administered on 06/03/16 09:01; Admin Dose 500 MG; Start 05/30/16 at 09:00 Acetaminophen (Tylenol Tab) 650 mg Q6H PRN PO PAIN LEVEL 1-3 OR FEVER Last administered on 06/03/16 03:01; Admin Dose 650 MG; Start 05/29/16 at 18:00 Docusate Sodium (Colace) 100 mg Q12H PRN PO CONSTIPATION; Start 05/29/16 at 18: 00 Magnesium Hydroxide (Milk Of Mag) 30 ml DAILY PRN PO CONSTIPATION; Start at 18:00 Bisacodyl (Dulcolax) 5 mg DAILY PRN PO CONSTIPATION; Start 05/29/16 at 18:00 Pantoprazole (Protonix Tab) 40 mg DAILY@06 PO Last administered on 06/03/16 05: 56; Admin Dose 40 MG; Start 05/30/16 at 06:00 Enoxaparin Sodium (Lovenox) 30 mg DAILY SC Last administered on 06/03/16 09:02 ; Admin Dose 30 MG; Start 05/30/16 at 09:00 Miscellaneous Information 1 ea NOTE XX ; Start 05/29/16 at 19:00 Glucose (Glutose) 15 gm Q15M PRN PO DECREASED GLUCOSE; Start 05/29/16 at 19:00 Glucose (Glutose) 22.5 gm Q15M PRN PO DECREASED GLUCOSE; Start 05/29/16 at 19:00 Dextrose (D50w Syringe) 25 ml Q15M PRN IV DECREASED GLUCOSE; Start 05/29/16 at 19:00 Dextrose (D50w Syringe) 50 ml Q15M PRN IV DECREASED GLUCOSE; Start 05/29/16 at 19:00 Glucagon (Glucagen) 1 mg Q15M PRN IM DECREASED GLUCOSE; Start 05/29/16 at 19:00 Glucose (Glutose) 15 gm Q15M PRN BUCCAL DECREASED GLUCOSE; Start 05/29/16 at 19: 00 Hydralazine HCl (Apresoline) 20 mg Q6H PRN IV sbp >170 Last administered on 05/30 09:21; Admin Dose 20 MG; Start 05/30/16 at 09:30 Acetaminophen (Tylenol Supp) 650 mg Q6H PRN [place] fever Last administered on 09:17; Admin Dose 650 MG; Start 05/30/16 at 10:30 Metoprolol Tartrate (Lopressor) 25 mg BID PO Last administered on 06/03/16 09: 01; Admin Dose 25 MG; Start 05/30/16 at 21:00 Aspirin 81 mg 81 mg DAILY PO Last administered on 06/03/16 08:59; Admin Dose 81 MG; Start 05/31/16 at 09:00 Ondansetron HCl/ Dextrose (Zofran Inj/D5W) 54 ml @ 108 mls/hr Q6H PRN IV NAUSEA AND/OR VOMITING; Start 05/30/16 at 19:00 Ondansetron HCl (Zofran Inj) 4 mg Q6H PRN IV NAUSEA AND/OR VOMITING Last administered on 06/02/16 18:02; Admin Dose 4 MG; Start 05/30/16 at 19:30 Tobramycin TOBRAMYCIN PER PHARMACY NOTE XX ; Start 05/30/16 at 23:30 Piperacillin Sod/ Tazobactam Sod (Zosyn 2.25gm/ 50ml (Pmx)) 50 ml @ 100 mls/hr Q8 IVPB Last administered on 06/03/16 13:58; Admin Dose 100 MLS/HR; Start at 22:00 Nitroglycerin (Nitroglycerin 0.4 Mg/Hr) 1 patch DAILY PRN TRANSDERM CHEST PAIN ; Start 06/01/16 at 16:30 Insulin Glargine (Lantus) 10 unit DAILY@08 SC Last administered on 06/03/16t 09: 04; Admin Dose 10 UNIT; Start 06/02/16 at 08:00 Nitroglycerin (Nitroglycerin (Sl Tab) 0.4 Mg) 1 tab Q5M PRN SL ANGINA; Start at 17:30 MICHELLE MCDANIEL MD Jun 03, 2016 14:21
--- NOTE | 2016-06-03 15:36 | CONS ---
Date/Time of Note Date/Time of Note DATE: 06/03/16 TIME: 15:34 Consult Date/Type/Reason Admit Date/Time May 29, 2016 at 14:54 Type of Consultation: pulmonary Ordering Provider: MICHELLE MCDANIEL MD Subjective Continues to improve clinically however still with persistent leukocytosis Objective Vital Signs Date Time Temp Pulse Resp B/P Pulse Ox O2 Delivery O2 Flow Rate FiO2 06/03/16 14:06 80 20 96 Nasal Cannula 3.0 06/03/16 11:40 98.3 122/62 Intake and Output 06/02/16 06/02/16 06/03/16 15:00 23:00 07:00 Intake Total 1082 ml 600 ml Output Total 2500 ml 0 ml Balance -1418 ml 600 ml Results/Medications Result Diagram: 06/02/1672406/02/16724 Results 24 hrs Laboratory Tests Test 06/02/16 17:01 06/02/16 21:26 06/03/16 00:18 06/03/16 06:36 Bedside Glucose 172 207 220 Cholesterol Level 144 Cholesterol/HDL Ratio 3.7 Creatine Kinase 67 Creatine Kinase Index 0.7 Creatinine Kinase MB (Mass) 0.45 HDL Cholesterol 38 LDL Cholesterol, Calculated 77 Triglycerides Level 147 Troponin I 0.103 Test 06/03/16 08:01 06/03/16 11:58 Bedside Glucose 188 200 Medications Current Medications Amlodipine Besylate (Norvasc) 10 mg DAILY PO Last administered on 06/03/16 09: 00; Admin Dose 10 MG; Start 05/30/16 at 09:00 Latanoprost (Xalatan) 1 drop HS BOTH EYES Last administered on 06/02/16 21:18; Admin Dose 1 DROP; Start 05/29/16 at 21:00 Clonidine (Catapres) 0.1 mg TID PO Last administered on 06/03/16 13:53; Admin Dose 0.1 MG; Start 05/29/16 at 21:00 Fluoxetine HCl (Prozac) 20 mg DAILY PO Last administered on 06/03/16 09:01; Admin Dose 20 MG; Start 05/30/16 at 09:00 Gabapentin (Neurontin) 100 mg TID PO Last administered on 06/03/16 13:53; Admin Dose 100 MG; Start 05/29/16 at 21:00 Hydralazine HCl (Apresoline) 50 mg TID PO Last administered on 06/03/16 13:53; Admin Dose 50 MG; Start 05/29/16 at 21:00 Hydromorphone HCl (Dilaudid) 2 mg Q4H PRN PO PAIN; Start 05/29/16 at 18:00 Losartan Potassium (Cozaar) 50 mg DAILY PO Last administered on 06/03/16 09:00 ; Admin Dose 50 MG; Start 05/30/16 at 09:00 Methocarbamol (Robaxin) 500 mg DAILY PO Last administered on 06/03/16 09:01; Admin Dose 500 MG; Start 05/30/16 at 09:00 Acetaminophen (Tylenol Tab) 650 mg Q6H PRN PO PAIN LEVEL 1-3 OR FEVER Last administered on 06/03/16 03:01; Admin Dose 650 MG; Start 05/29/16 at 18:00 Docusate Sodium (Colace) 100 mg Q12H PRN PO CONSTIPATION; Start 05/29/16 at 18: 00 Magnesium Hydroxide (Milk Of Mag) 30 ml DAILY PRN PO CONSTIPATION; Start at 18:00 Bisacodyl (Dulcolax) 5 mg DAILY PRN PO CONSTIPATION; Start 05/29/16 at 18:00 Pantoprazole (Protonix Tab) 40 mg DAILY@06 PO Last administered on 06/03/16 05: 56; Admin Dose 40 MG; Start 05/30/16 at 06:00 Enoxaparin Sodium (Lovenox) 30 mg DAILY SC Last administered on 06/03/16 09:02 ; Admin Dose 30 MG; Start 05/30/16 at 09:00 Miscellaneous Information 1 ea NOTE XX ; Start 05/29/16 at 19:00 Glucose (Glutose) 15 gm Q15M PRN PO DECREASED GLUCOSE; Start 05/29/16 at 19:00 Glucose (Glutose) 22.5 gm Q15M PRN PO DECREASED GLUCOSE; Start 05/29/16 at 19:00 Dextrose (D50w Syringe) 25 ml Q15M PRN IV DECREASED GLUCOSE; Start 05/29/16 at 19:00 Dextrose (D50w Syringe) 50 ml Q15M PRN IV DECREASED GLUCOSE; Start 05/29/16 at 19:00 Glucagon (Glucagen) 1 mg Q15M PRN IM DECREASED GLUCOSE; Start 05/29/16 at 19:00 Glucose (Glutose) 15 gm Q15M PRN BUCCAL DECREASED GLUCOSE; Start 05/29/16 at 19: 00 Hydralazine HCl (Apresoline) 20 mg Q6H PRN IV sbp >170 Last administered on 05/30 09:21; Admin Dose 20 MG; Start 05/30/16 at 09:30 Acetaminophen (Tylenol Supp) 650 mg Q6H PRN [place] fever Last administered on 09:17; Admin Dose 650 MG; Start 05/30/16 at 10:30 Metoprolol Tartrate (Lopressor) 25 mg BID PO Last administered on 06/03/16 09: 01; Admin Dose 25 MG; Start 05/30/16 at 21:00 Aspirin 81 mg 81 mg DAILY PO Last administered on 06/03/16 08:59; Admin Dose 81 MG; Start 05/31/16 at 09:00 Ondansetron HCl/ Dextrose (Zofran Inj/D5W) 54 ml @ 108 mls/hr Q6H PRN IV NAUSEA AND/OR VOMITING; Start 05/30/16 at 19:00 Ondansetron HCl (Zofran Inj) 4 mg Q6H PRN IV NAUSEA AND/OR VOMITING Last administered on 06/02/16 18:02; Admin Dose 4 MG; Start 05/30/16 at 19:30 Tobramycin TOBRAMYCIN PER PHARMACY NOTE XX ; Start 05/30/16 at 23:30 Piperacillin Sod/ Tazobactam Sod (Zosyn 2.25gm/ 50ml (Pmx)) 50 ml @ 100 mls/hr Q8 IVPB Last administered on 06/03/16 13:58; Admin Dose 100 MLS/HR; Start at 22:00 Nitroglycerin (Nitroglycerin 0.4 Mg/Hr) 1 patch DAILY PRN TRANSDERM CHEST PAIN ; Start 06/01/16 at 16:30 Insulin Glargine (Lantus) 10 unit DAILY@08 SC Last administered on 06/03/16 09: 04; Admin Dose 10 UNIT; Start 06/02/16 at 08:00 Nitroglycerin (Nitroglycerin (Sl Tab) 0.4 Mg) 1 tab Q5M PRN SL ANGINA; Start at 17:30 Assessment/Plan Chief Complaint/Hosp Course IMPRESSION AND PLAN: Right upper lobe dense consolidation enveloping right upper lobe anteriorly, radiographically improved with antibiotics biopsy not performed 1. Continue to follow radiographic improvement right upper lobe infiltrate 2. Stop aspirin pending biopsy. 3. Continue broad-spectrum antibiotic coverage for likely postobstructive pneumonia. 4. Continue DVT and GI prophylaxis. 5. Continue hemodialysis with volume removal. Continue to monitor ID recommendations Problems: EHSAN SHEFFIELD MD, [facility] Jun 03, 2016 15:36
[2016-06-03] MEDS: LATANOPROST 0.005% 2.5 ML OPH BOTH EYES SCH (20:49)
[2016-06-04] VITALS (19 sets, daily range): BP systolic 99–140; BP diastolic 51–63; PULSE 75–92; RESP 16–20
[2016-06-04] MEDS: ALBUTEROL/IPRATROPIUM (NEB) 3 ML AMP INH SCH ×4 (01:38→21:17)
[2016-06-04 05:31] LABS: ALBUMIN 3.7 g/dl (3.3-4.9)
[2016-06-04 05:32] LABS: POTASSIUM 4.7 mmol/L (3.5-5.1)
[2016-06-04 05:35] LABS: ALBUMIN/GLOBULIN RATIO 1.19; CALCIUM 8.5 mg/dl (8.4-10.2); TOTAL PROTEIN 6.8 g/dl (6.1-8.1)
[2016-06-04 05:48] LABS: EOSINOPHILS # 0.1 10^3/ul (0.0-0.5); EOSINOPHILS % 0.5 % (0.0-7.0); HEMATOCRIT 34.3 % (37.0-47.0); HEMOGLOBIN 11.6 g/dl (12.0-16.0); LYMPHOCYTES # 0.6 10^3/ul (0.8-2.9); LYMPHOCYTES % 3.6 % (15.0-51.0); MEAN CORPUSCULAR HEMOGLOBIN 31.4 pg (29.0-33.0); MEAN CORPUSCULAR HGB CONC 33.8 g/dl (32.0-37.0); MEAN CORPUSCULAR VOLUME 92.9 fl (82.0-101.0); MEAN PLATELET VOLUME 9.7 fl (7.4-10.4); MONOCYTE # 0.6 10^3/ul (0.3-0.9); MONOCYTES % 3.6 % (0.0-11.0); NEUTROPHIL # 15.7 10^3/ul (1.6-7.5); NEUTROPHILS % 92.3 % (39.0-77.0); PLATELET COUNT 264 10^3/UL (140-440); RED BLOOD COUNT 3.69 10^6/ul (4.20-5.40); RED CELL DISTRIBUTION WIDTH 15.9 % (11.5-14.5)
[2016-06-04 05:50] LABS: CONDITION 1
[2016-06-04 05:51] LABS: LH ANALYZER COMMENTS 1
[2016-06-04] MEDS: PANTOPRAZOLE (EC) 40 MG TAB PO SCH (06:00)
[2016-06-04] MEDS: PIPER-TAZO 2.25 GM (PMX) 50 ML IVPB SCH ×3 (06:00→23:44)
[2016-06-04] MEDS: LOSARTAN 50 MG TAB PO SCH (09:00)
[2016-06-04] MEDS: METOPROLOL 25 MG TAB PO SCH ×2 (09:00→19:33)
[2016-06-04] MEDS: AMLODIPINE 10 MG TAB PO SCH (09:00)
[2016-06-04] MEDS: CALCIUM ACETATE 667 MG CAP PO SCH ×3 (09:21→17:25)
[2016-06-04] MEDS: ASPIRIN 81 MG TAB PO SCH (09:21)
[2016-06-04] MEDS: SEVELAMER CARBONATE 0.8 GM PKT PO SCH ×3 (09:22→17:25)
[2016-06-04] MEDS: FLUOXETINE 20 MG CAP PO SCH (09:24)
[2016-06-04] MEDS: METHOCARBAMOL 500 MG TAB PO SCH (09:24)
[2016-06-04] MEDS: GABAPENTIN 100 MG CAP PO SCH ×3 (09:24→23:28)
[2016-06-04] MEDS: INSULIN GLARGINE [LANtus] 3 ML PEN SC SCH (09:25)
[2016-06-04] MEDS: ENOXAPARIN 30 MG/0.3 ML SYG SC SCH (09:25)
[2016-06-04] MEDS: INSULIN ASPART [NOVOLOG] 3 ML PEN SC SCH ×4 (09:26→23:30)
[2016-06-04] MEDS ORDERED: REGADENOSON 0.4 MG/5 ML SYG ONE (12:26)
--- NOTE | 2016-06-04 12:49 | CONS ---
Date/Time of Note Date/Time of Note DATE: 06/04/16 TIME: 12:45 Assessment/Plan Assessment/Plan Chief Complaint/Hosp Course IMPRESSION: 1. Positive troponin, assess significance. Assess for acute coronary syndrome. 2. Shortness of breath, assess for congestive heart failure. 3. Abnormal electrocardiogram. Assess for acute coronary syndrome. 4. Pneumonia by chest x-ray and chest CT. 5. Chest mass and hilar lymphadenopathy.-by CT posssibly only infiltrate and not mass 6. End-stage renal disease on hemodialysis. 7. Leukocytosis. 8. Anemia. 9. Cardiomyopathy-LVEF 45% by echo Recc: -Tele -Continue abx;'s and f/u cx data -Continue asa -Continue norvasc/clonidine/BB -PRN SL NTG for recurrent chest bpain -Lexiscan today assess significance of troponin and chest pain Problems: Consultation Date/Type/Reason Admit Date/Time May 29, 2016 at 14:54 Initial Consult Date 05/30/2016 Type of Consultation: Cardiology Reason for Consultation Positive troponin Referring Provider: MICHELLE MCDANIEL MD Exam/Review of Systems Vital Signs Vitals Vital Signs Date Time Temp Pulse Resp B/P Pulse Ox O2 Delivery O2 Flow Rate FiO2 06/04/16 12:11 84 06/04/16 12:03 98.1 20 116/56 97 06/04/16 08:49 Nasal Cannula 2.0 Intake and Output 06/03/16 06/03/16 06/04/16 15:00 23:00 07:00 Intake Total 50 ml 670 ml 350 ml Output Total 1 ml Balance 50 ml 669 ml 350 ml Exam Review of Systems: CONSTITUTIONAL: No fevers, chills. PULMONARY: No sob CARDIOVASCULAR: No chest pain/palpitations GASTROINTESTINAL: No nausea/vomiting. GENITOURINARY: No hematuria/dysuria. MUSCULOSKELETAL: No myagias/arthalgias. PSYCHIATRIC: The patient denies depression. NEUROLOGIC: No weakness Constitutional: alert Psych: no complaints ENMT: mucosa pink and moist Neck: jvd (9 cm water), supple Respiratory: diminished breath sounds Cardiovascular: regular rate and rhythm Gastrointestinal: non-tender, soft Musculoskeletal: muscle tone (Normal) Extremities: edema (trace/B) Neurological: other (No focal deficits/lethargic) Results Result Diagram: 06/04/16 0500 06/04/16 0500 Results 24 hrs Laboratory Tests Test 06/03/16 17:01 06/03/16 20:51 06/04/16 03:02 06/04/16 05:00 Bedside Glucose 231 H 244 H 265 H Alanine Aminotransferase (ALT/SGPT) 27 Albumin 3.7 Albumin/Globulin Ratio 1.19 Alkaline Phosphatase 113 Anion Gap 28 H Aspartate Amino Transf (AST/SGOT) 36 Basophils # 0.0 Basophils % 0.0 Blood Morphology Comment Blood Urea Nitrogen 95 H Calcium Level 8.5 Carbon Dioxide Level 27 Chloride Level 88 L Creatinine 6.00 H Direct Bilirubin 0.00 Eosinophils # 0.1 Eosinophils % 0.5 Globulin 3.10 Glucose Level 303 H Hematocrit 34.3 L Hemoglobin 11.6 L Indirect Bilirubin 0.0 Lymphocytes # 0.6 L Lymphocytes % 3.6 L Mean Corpuscular Hemoglobin 31.4 Mean Corpuscular Hemoglobin Concent 33.8 Mean Corpuscular Volume 92.9 Mean Platelet Volume 9.7 Monocytes # 0.6 Monocytes % 3.6 Neutrophils # 15.7 H Neutrophils % 92.3 H Nucleated Red Blood Cells # 0.0 Nucleated Red Blood Cells % 0.0 Platelet Count 264 Potassium Level 4.7 Random Vancomycin Level 21.5 Red Blood Count 3.69 L Red Cell Distribution Width 15.9 H Sodium Level 138 Total Bilirubin 0.0 L Total Protein 6.8 White Blood Count 17.0 H Test 06/04/16 05:24 06/04/16 06:08 06/04/16 07:56 06/04/16 11:39 Bedside Glucose 307 H 261 H 254 H 236 H Medications Medications Current Medications Amlodipine Besylate (Norvasc) 10 mg DAILY PO Last administered on 06/03/16 09: 00; Admin Dose 10 MG; Start 05/30/16 at 09:00 Latanoprost (Xalatan) 1 drop HS BOTH EYES Last administered on 06/03/16 20:49; Admin Dose 1 DROP; Start 05/29/16 at 21:00 Clonidine (Catapres) 0.1 mg TID PO Last administered on 06/03/16 20:48; Admin Dose 0.1 MG; Start 05/29/16 at 21:00 Fluoxetine HCl (Prozac) 20 mg DAILY PO Last administered on 06/04/16 09:24; Admin Dose 20 MG; Start 05/30/16 at 09:00 Gabapentin (Neurontin) 100 mg TID PO Last administered on 06/04/16 09:24; Admin Dose 100 MG; Start 05/29/16 at 21:00 Hydralazine HCl (Apresoline) 50 mg TID PO Last administered on 06/03/16 20:49; Admin Dose 50 MG; Start 05/29/16 at 21:00 Hydromorphone HCl (Dilaudid) 2 mg Q4H PRN PO PAIN; Start 05/29/16 at 18:00 Losartan Potassium (Cozaar) 50 mg DAILY PO Last administered on 06/03/16 09:00 ; Admin Dose 50 MG; Start 05/30/16 at 09:00 Methocarbamol (Robaxin) 500 mg DAILY PO Last administered on 06/04/16 09:24; Admin Dose 500 MG; Start 05/30/16 at 09:00 Acetaminophen (Tylenol Tab) 650 mg Q6H PRN PO PAIN LEVEL 1-3 OR FEVER Last administered on 06/03/16 22:29; Admin Dose 650 MG; Start 05/29/16 at 18:00 Docusate Sodium (Colace) 100 mg Q12H PRN PO CONSTIPATION; Start 05/29/16 at 18: 00 Magnesium Hydroxide (Milk Of Mag) 30 ml DAILY PRN PO CONSTIPATION; Start at 18:00 Bisacodyl (Dulcolax) 5 mg DAILY PRN PO CONSTIPATION; Start 05/29/16 at 18:00 Pantoprazole (Protonix Tab) 40 mg DAILY@06 PO Last administered on 06/04/16 06: 00; Admin Dose 40 MG; Start 05/30/16 at 06:00 Enoxaparin Sodium (Lovenox) 30 mg DAILY SC Last administered on 06/04/16 09:25 ; Admin Dose 30 MG; Start 05/30/16 at 09:00 Miscellaneous Information 1 ea NOTE XX ; Start 05/29/16 at 19:00 Glucose (Glutose) 15 gm Q15M PRN PO DECREASED GLUCOSE; Start 05/29/16 at 19:00 Glucose (Glutose) 22.5 gm Q15M PRN PO DECREASED GLUCOSE; Start 05/29/16 at 19:00 Dextrose (D50w Syringe) 25 ml Q15M PRN IV DECREASED GLUCOSE; Start 05/29/16 at 19:00 Dextrose (D50w Syringe) 50 ml Q15M PRN IV DECREASED GLUCOSE; Start 05/29/16 at 19:00 Glucagon (Glucagen) 1 mg Q15M PRN IM DECREASED GLUCOSE; Start 05/29/16 at 19:00 Glucose (Glutose) 15 gm Q15M PRN BUCCAL DECREASED GLUCOSE; Start 05/29/16 at 19: 00 Hydralazine HCl (Apresoline) 20 mg Q6H PRN IV sbp >170 Last administered on 05/30 09:21; Admin Dose 20 MG; Start 05/30/16 at 09:30 Acetaminophen (Tylenol Supp) 650 mg Q6H PRN [place] fever Last administered on 09:17; Admin Dose 650 MG; Start 05/30/16 at 10:30 Metoprolol Tartrate (Lopressor) 25 mg BID PO Last administered on 06/03/16 20: 48; Admin Dose 25 MG; Start 05/30/16 at 21:00 Aspirin 81 mg 81 mg DAILY PO Last administered on 06/04/16 09:21; Admin Dose 81 MG; Start 05/31/16 at 09:00 Ondansetron HCl/ Dextrose (Zofran Inj/D5W) 54 ml @ 108 mls/hr Q6H PRN IV NAUSEA AND/OR VOMITING; Start 05/30/16 at 19:00 Ondansetron HCl (Zofran Inj) 4 mg Q6H PRN IV NAUSEA AND/OR VOMITING Last administered on 06/02/16 18:02; Admin Dose 4 MG; Start 05/30/16 at 19:30 Tobramycin (Tobramycin Iv Per Pharmacy) TOBRAMYCIN PER PHARMACY NOTE XX ; Start 05/30/16 at 23:30 Nitroglycerin (Nitroglycerin 0.4 Mg/Hr) 1 patch DAILY PRN TRANSDERM CHEST PAIN ; Start 06/01/16 at 16:30 Insulin Glargine (Lantus) 10 unit DAILY@08 SC Last administered on 06/04/16 09: 25; Admin Dose 10 UNIT; Start 06/02/16 at 08:00 Nitroglycerin 1 tab 1 tab Q5M PRN SL ANGINA; Start 06/02/16 at 17:30 Piperacillin Sod/ Tazobactam Sod 50 ml @ 100 mls/hr Q8 IVPB ; Start 06/04/16 at 14:00 Vancomycin HCl/ Sodium Chloride (Vancocin/NS) 150 ml @ 75 mls/hr 12 IVPB ; Start 06/05/16 at 12:00; Stop 06/05/16 at 20:00 ANNAMARIE SANTANA Jun 04, 2016 12:49
--- NOTE | 2016-06-04 13:20 | CARRPT ---
DATE OF PROCEDURE: 06/04/2016 LEXISCAN CARDIAC STRESS TEST, ELECTROCARDIOGRAM PORTION INDICATION: Positive troponin, assess significance. BASELINE VITAL SIGNS AND ELECTROCARDIOGRAM: Pulse 77, blood pressure 109/57. Electrocardiogram rev eals normal sinus rhythm, rate of 77, normal axis, normal intervals, isolated biphasic T-wave abnorm alities in lead aVL. PROCEDURE: The patient underwent standard Lexiscan infusion protocol over 10 seconds followed by ra diolabeled tracer. The patient's test was stopped due to completion of protocol. Maximal achieved blood pressure during the test 104/54. Maximum heart rate during the test 83. ELECTROCARDIOGRAM FINDINGS: The patient did not develop any new Lexiscan-induced ST or T-wave wood es from baseline abnormalities. No documented PVCs. SYMPTOMS: The patient had no complaints of chest pain or shortness of breath or feeling lethargic t hroughout the stress test. IMPRESSION: 1. No Lexiscan-induced ST or T-wave changes from baseline abnormalities diagnostic for cardiac isch emia. 2. No complaints of chest pain or shortness of breath during stress testing. 3. No documented premature ventricular contractions during stress testing. 4. Report of nuclear images to follow in separate dictation. Dictated By: ANNAMARIE COLLAZO/YAHIR Conf#: [id number] DID#: [id number] CC: MICHELLE MCDANIEL MD;*End*
--- NOTE | 2016-06-04 15:52 | PN ---
DATE: 06/04/2016 SUBJECTIVE: This is an infectious disease progress note. No acute changes. The patient is lying c omfortably in bed. She is afebrile since 06/03/2016. White blood cell count today 17 with platelet s 264, neutrophils 92.3. MICROBIOLOGY: Culture had been negative. ANTIMICROBIALS: The patient is on: 1. Vancomycin. 2. Zosyn. 3. Tobramycin. PHYSICAL EXAMINATION: GENERAL: Well-developed, fragile, elderly woman in no distress. HEENT: Head atraumatic, normocephalic. Sclerae anicteric. Buccal mucosa pink. NECK: Supple, trachea midline. CHEST: Rise symmetrical. Breath sounds diminished to bases. HEART: S1, S2. ABDOMEN: Soft, bowel tones present. EXTREMITIES: Without cyanosis. ASSESSMENT: 1. Right upper lobe pneumonia with dense consolidation. Biopsy not done secondary to repeat CT of the chest significantly improved. 2. Systemic inflammatory response syndrome secondary to that. 3. End-stage renal disease. 4. Diabetes. 5. Right upper extremity AV fistula. 6. Cardiomyopathy with elevated troponins. Cardiology on case, pending Lexiscan. PLAN: The patient remains stable, overall improving. Continue present care, antibiotics. Follow r ecommendations of specialists. Dictated By: PAULA CHANEL MANAGER BUSINESS INFORMATION for SHAWN ARMAS/YAHIR Conf#: [id number] DID#: [id number]
--- NOTE | 2016-06-04 16:03 | RADRPT ---
PROCEDURE: Lexiscan myocardial perfusion study CLINICAL INDICATION: 71 -year-old patient complaining of chest pain. TECHNIQUE: Lexiscan 0.4 mg intravenously separate acquisition gated myocardial perfusion SPECT usi ng Tc 99m Myoview 29.2 mCi intravenously at stress and Tc-99m Myoview, 5 mCi intravenously at rest w as performed using the rest/stress sequence. Poststress Myoview SPECT images were obtained in the s upine position. COMPARISON: No prior studies. FINDINGS: Perfusion images reveal no evidence of perfusion defects. Lexiscan post stress gated SPECT images demonstrate no wall motion abnormalities. IMPRESSION: 1. No evidence of perfusion defects. 2. No wall motion abnormalities. 3. The left ventricle ejection fraction at stress is 53%. RPTAT: HH .Teena Cheney MD, Date Time Electronically viewed and signed by .Teena Cheney MD, on 06/04/2016 16:03 .L/
[2016-06-04] MEDS: ACETAMINOPHEN 325 MG TAB PO PRN ×2 (16:41→23:28)
--- NOTE | 2016-06-04 16:58 | CONS ---
Date/Time of Note Date/Time of Note DATE: 06/04/16 TIME: 16:32 Consult Date/Type/Reason Admit Date/Time May 29, 2016 at 14:54 Type of Consultation: Pulm Ordering Provider: MICHELLE MCDANIEL MD Subjective Completing stress test, Objective Vital Signs Date Time Temp Pulse Resp B/P Pulse Ox O2 Delivery O2 Flow Rate FiO2 06/04/16 14:31 2.0 06/04/16 12:11 84 06/04/16 12:03 98.1 20 116/56 97 06/04/16 08:49 Nasal Cannula Intake and Output 06/03/16 06/03/16 06/04/16 15:00 23:00 07:00 Intake Total 50 ml 670 ml 350 ml Output Total 1 ml Balance 50 ml 669 ml 350 ml Results/Medications Result Diagram: 06/04/16 0500 06/04/16 0500 Results 24 hrs Laboratory Tests Test 06/03/16 17:01 06/03/16 20:51 06/04/16 03:02 06/04/16 05:00 Bedside Glucose 231 H 244 H 265 H Alanine Aminotransferase (ALT/SGPT) 27 Albumin 3.7 Albumin/Globulin Ratio 1.19 Alkaline Phosphatase 113 Anion Gap 28 H Aspartate Amino Transf (AST/SGOT) 36 Basophils # 0.0 Basophils % 0.0 Blood Morphology Comment Blood Urea Nitrogen 95 H Calcium Level 8.5 Carbon Dioxide Level 27 Chloride Level 88 L Creatinine 6.00 H Direct Bilirubin 0.00 Eosinophils # 0.1 Eosinophils % 0.5 Globulin 3.10 Glucose Level 303 H Hematocrit 34.3 L Hemoglobin 11.6 L Indirect Bilirubin 0.0 Lymphocytes # 0.6 L Lymphocytes % 3.6 L Mean Corpuscular Hemoglobin 31.4 Mean Corpuscular Hemoglobin Concent 33.8 Mean Corpuscular Volume 92.9 Mean Platelet Volume 9.7 Monocytes # 0.6 Monocytes % 3.6 Neutrophils # 15.7 H Neutrophils % 92.3 H Nucleated Red Blood Cells # 0.0 Nucleated Red Blood Cells % 0.0 Platelet Count 264 Potassium Level 4.7 Random Vancomycin Level 21.5 Red Blood Count 3.69 L Red Cell Distribution Width 15.9 H Sodium Level 138 Total Bilirubin 0.0 L Total Protein 6.8 White Blood Count 17.0 H Test 06/04/16 05:24 06/04/16 06:08 06/04/16 07:56 06/04/16 11:39 Bedside Glucose 307 H 261 H 254 H 236 H Test 06/04/16 14:12 Bedside Glucose 266 H Medications Current Medications Amlodipine Besylate (Norvasc) 10 mg DAILY PO Last administered on 06/03/16 09: 00; Admin Dose 10 MG; Start 05/30/16 at 09:00 Latanoprost (Xalatan) 1 drop HS BOTH EYES Last administered on 06/03/16 20:49; Admin Dose 1 DROP; Start 05/29/16 at 21:00 Clonidine (Catapres) 0.1 mg TID PO Last administered on 06/03/16 20:48; Admin Dose 0.1 MG; Start 05/29/16 at 21:00 Fluoxetine HCl (Prozac) 20 mg DAILY PO Last administered on 06/04/16 09:24; Admin Dose 20 MG; Start 05/30/16 at 09:00 Gabapentin (Neurontin) 100 mg TID PO Last administered on 06/04/16 14:18; Admin Dose 100 MG; Start 05/29/16 at 21:00 Hydralazine HCl (Apresoline) 50 mg TID PO Last administered on 06/03/16 20:49; Admin Dose 50 MG; Start 05/29/16 at 21:00 Hydromorphone HCl (Dilaudid) 2 mg Q4H PRN PO PAIN; Start 05/29/16 at 18:00 Losartan Potassium (Cozaar) 50 mg DAILY PO Last administered on 06/03/16 09:00 ; Admin Dose 50 MG; Start 05/30/16 at 09:00 Methocarbamol (Robaxin) 500 mg DAILY PO Last administered on 06/04/16 09:24; Admin Dose 500 MG; Start 05/30/16 at 09:00 Acetaminophen (Tylenol Tab) 650 mg Q6H PRN PO PAIN LEVEL 1-3 OR FEVER Last administered on 06/03/16 22:29; Admin Dose 650 MG; Start 05/29/16 at 18:00 Docusate Sodium (Colace) 100 mg Q12H PRN PO CONSTIPATION; Start 05/29/16 at 18: 00 Magnesium Hydroxide (Milk Of Mag) 30 ml DAILY PRN PO CONSTIPATION; Start at 18:00 Bisacodyl (Dulcolax) 5 mg DAILY PRN PO CONSTIPATION; Start 05/29/16 at 18:00 Pantoprazole (Protonix Tab) 40 mg DAILY@06 PO Last administered on 06/04/16 06: 00; Admin Dose 40 MG; Start 05/30/16 at 06:00 Enoxaparin Sodium (Lovenox) 30 mg DAILY SC Last administered on 06/04/16 09:25 ; Admin Dose 30 MG; Start 05/30/16 at 09:00 Miscellaneous Information 1 ea NOTE XX ; Start 05/29/16 at 19:00 Glucose (Glutose) 15 gm Q15M PRN PO DECREASED GLUCOSE; Start 05/29/16 at 19:00 Glucose (Glutose) 22.5 gm Q15M PRN PO DECREASED GLUCOSE; Start 05/29/16 at 19:00 Dextrose (D50w Syringe) 25 ml Q15M PRN IV DECREASED GLUCOSE; Start 05/29/16 at 19:00 Dextrose (D50w Syringe) 50 ml Q15M PRN IV DECREASED GLUCOSE; Start 05/29/16 at 19:00 Glucagon (Glucagen) 1 mg Q15M PRN IM DECREASED GLUCOSE; Start 05/29/16 at 19:00 Glucose (Glutose) 15 gm Q15M PRN BUCCAL DECREASED GLUCOSE; Start 05/29/16 at 19: 00 Hydralazine HCl (Apresoline) 20 mg Q6H PRN IV sbp >170 Last administered on 05/30 09:21; Admin Dose 20 MG; Start 05/30/16 at 09:30 Acetaminophen (Tylenol Supp) 650 mg Q6H PRN [place] fever Last administered on 09:17; Admin Dose 650 MG; Start 05/30/16 at 10:30 Metoprolol Tartrate (Lopressor) 25 mg BID PO Last administered on 06/03/16 20: 48; Admin Dose 25 MG; Start 05/30/16 at 21:00 Aspirin 81 mg 81 mg DAILY PO Last administered on 06/04/16 09:21; Admin Dose 81 MG; Start 05/31/16 at 09:00 Ondansetron HCl/ Dextrose (Zofran Inj/D5W) 54 ml @ 108 mls/hr Q6H PRN IV NAUSEA AND/OR VOMITING; Start 05/30/16 at 19:00 Ondansetron HCl (Zofran Inj) 4 mg Q6H PRN IV NAUSEA AND/OR VOMITING Last administered on 06/02/16 18:02; Admin Dose 4 MG; Start 05/30/16 at 19:30 Tobramycin (Tobramycin Iv Per Pharmacy) TOBRAMYCIN PER PHARMACY NOTE XX ; Start 05/30/16 at 23:30 Nitroglycerin (Nitroglycerin 0.4 Mg/Hr) 1 patch DAILY PRN TRANSDERM CHEST PAIN ; Start 06/01/16 at 16:30 Insulin Glargine (Lantus) 10 unit DAILY@08 SC Last administered on 06/04/16 09: 25; Admin Dose 10 UNIT; Start 06/02/16 at 08:00 Nitroglycerin 1 tab 1 tab Q5M PRN SL ANGINA; Start 06/02/16 at 17:30 Piperacillin Sod/ Tazobactam Sod 50 ml @ 100 mls/hr Q8 IVPB Last administered on 06/04/16 14:18; Admin Dose 100 MLS/HR; Start 06/04/16 at 14:00 Vancomycin HCl/ Sodium Chloride (Vancocin/NS) 150 ml @ 75 mls/hr 12 IVPB ; Start 06/05/16 at 12:00; Stop 06/05/16 at 20:00 Assessment/Plan Chief Complaint/Hosp Course IMPRESSION AND PLAN: Right upper lobe dense consolidation enveloping right upper lobe anteriorly, radiographically improved with antibiotics biopsy not performed 1. Continue to follow radiographic improvement right upper lobe infiltrate 2. aspiration precautions. 3. Continue broad-spectrum antibiotic coverage for likely postobstructive pneumonia. 4. Continue DVT and GI prophylaxis. 5. Continue hemodialysis with volume removal. Continue to monitor ID recommendations Problems: EHSAN SHEFFIELD MD, FCCP Jun 04, 2016 16:43
--- NOTE | 2016-06-04 18:05 | PN ---
Date/Time of Note Date/Time of Note DATE: 06/04/16 TIME: 18:03 Assessment/Plan VTE Prophylaxis VTE Prophylaxis Intervention: other Lines/Catheters [facility] Assessment/Plan Chief Complaint/Hosp Course IMPRESSION: 1. Patient has pneumonia.better 2. Lung mass.better 3. Pulmonary edema.better 4. The patient has hypertension, diabetes mellitus, leukocytosis, , anemia, atherosclerotic heart disease, positive troponin. 5 sepsis 6 lexiscan neg plan hd per cardio pulmonary antibiotic Problems: Subjective 24 Hr Interval Summary Subjective hx not possible: other (s/p nani scan) Respiratory: no complaints Cardiovascular: no complaints Exam/Review of Systems Vital Signs Vitals Vital Signs Date Time Temp Pulse Resp B/P Pulse Ox O2 Delivery O2 Flow Rate FiO2 06/04/16 17:05 98.1 76 20 117/56 93 06/04/16 14:31 2.0 06/04/16 08:49 Nasal Cannula Intake and Output 06/03/16 06/03/16 06/04/16 15:00 23:00 07:00 Intake Total 50 ml 670 ml 350 ml Output Total 1 ml Balance 50 ml 669 ml 350 ml Exam Respiratory: clear to auscultation Cardiovascular: regular rate and rhythm Gastrointestinal: soft Musculoskeletal: nl extremities to inspection Extremities: normal pulses Results Result Diagram: 06/04/16 0500 06/04/16 0500 Results 24 hrs Laboratory Tests Test 06/03/16 20:51 06/04/16 03:02 06/04/16 05:00 06/04/16 05:24 Bedside Glucose 244 H 265 H 307 H Alanine Aminotransferase (ALT/SGPT) 27 Albumin 3.7 Albumin/Globulin Ratio 1.19 Alkaline Phosphatase 113 Anion Gap 28 H Aspartate Amino Transf (AST/SGOT) 36 Basophils # 0.0 Basophils % 0.0 Blood Morphology Comment Blood Urea Nitrogen 95 H Calcium Level 8.5 Carbon Dioxide Level 27 Chloride Level 88 L Creatinine 6.00 H Direct Bilirubin 0.00 Eosinophils # 0.1 Eosinophils % 0.5 Globulin 3.10 Glucose Level 303 H Hematocrit 34.3 L Hemoglobin 11.6 L Indirect Bilirubin 0.0 Lymphocytes # 0.6 L Lymphocytes % 3.6 L Mean Corpuscular Hemoglobin 31.4 Mean Corpuscular Hemoglobin Concent 33.8 Mean Corpuscular Volume 92.9 Mean Platelet Volume 9.7 Monocytes # 0.6 Monocytes % 3.6 Neutrophils # 15.7 H Neutrophils % 92.3 H Nucleated Red Blood Cells # 0.0 Nucleated Red Blood Cells % 0.0 Platelet Count 264 Potassium Level 4.7 Random Vancomycin Level 21.5 Red Blood Count 3.69 L Red Cell Distribution Width 15.9 H Sodium Level 138 Total Bilirubin 0.0 L Total Protein 6.8 White Blood Count 17.0 H Test 06/04/16 06:08 06/04/16 07:56 06/04/16 11:39 06/04/16 14:12 Bedside Glucose 261 H 254 H 236 H 266 H Test 06/04/16 16:44 Bedside Glucose 269 H Medications Medications Current Medications Amlodipine Besylate (Norvasc) 10 mg DAILY PO Last administered on 06/03/16 09: 00; Admin Dose 10 MG; Start 05/30/16 at 09:00 Latanoprost (Xalatan) 1 drop HS BOTH EYES Last administered on 06/03/16 20:49; Admin Dose 1 DROP; Start 05/29/16 at 21:00 Clonidine (Catapres) 0.1 mg TID PO Last administered on 06/03/16 20:48; Admin Dose 0.1 MG; Start 05/29/16 at 21:00 Fluoxetine HCl (Prozac) 20 mg DAILY PO Last administered on 06/04/16 09:24; Admin Dose 20 MG; Start 05/30/16 at 09:00 Gabapentin (Neurontin) 100 mg TID PO Last administered on 06/04/16 14:18; Admin Dose 100 MG; Start 05/29/16 at 21:00 Hydralazine HCl (Apresoline) 50 mg TID PO Last administered on 06/03/16 20:49; Admin Dose 50 MG; Start 05/29/16 at 21:00 Hydromorphone HCl (Dilaudid) 2 mg Q4H PRN PO PAIN; Start 05/29/16 at 18:00 Losartan Potassium (Cozaar) 50 mg DAILY PO Last administered on 06/03/16 09:00 ; Admin Dose 50 MG; Start 05/30/16 at 09:00 Methocarbamol (Robaxin) 500 mg DAILY PO Last administered on 06/04/16 09:24; Admin Dose 500 MG; Start 05/30/16 at 09:00 Acetaminophen (Tylenol Tab) 650 mg Q6H PRN PO PAIN LEVEL 1-3 OR FEVER Last administered on 06/04/16 16:41; Admin Dose 650 MG; Start 05/29/16 at 18:00 Docusate Sodium (Colace) 100 mg Q12H PRN PO CONSTIPATION; Start 05/29/16 at 18: 00 Magnesium Hydroxide (Milk Of Mag) 30 ml DAILY PRN PO CONSTIPATION; Start at 18:00 Bisacodyl (Dulcolax) 5 mg DAILY PRN PO CONSTIPATION; Start 05/29/16 at 18:00 Pantoprazole (Protonix Tab) 40 mg DAILY@06 PO Last administered on 06/04/16 06: 00; Admin Dose 40 MG; Start 05/30/16 at 06:00 Enoxaparin Sodium (Lovenox) 30 mg DAILY SC Last administered on 06/04/16 09:25 ; Admin Dose 30 MG; Start 05/30/16 at 09:00 Miscellaneous Information 1 ea NOTE XX ; Start 05/29/16 at 19:00 Glucose (Glutose) 15 gm Q15M PRN PO DECREASED GLUCOSE; Start 05/29/16 at 19:00 Glucose (Glutose) 22.5 gm Q15M PRN PO DECREASED GLUCOSE; Start 05/29/16 at 19:00 Dextrose (D50w Syringe) 25 ml Q15M PRN IV DECREASED GLUCOSE; Start 05/29/16 at 19:00 Dextrose (D50w Syringe) 50 ml Q15M PRN IV DECREASED GLUCOSE; Start 05/29/16 at 19:00 Glucagon (Glucagen) 1 mg Q15M PRN IM DECREASED GLUCOSE; Start 05/29/16 at 19:00 Glucose (Glutose) 15 gm Q15M PRN BUCCAL DECREASED GLUCOSE; Start 05/29/16 at 19: 00 Hydralazine HCl (Apresoline) 20 mg Q6H PRN IV sbp >170 Last administered on 05/30 09:21; Admin Dose 20 MG; Start 05/30/16 at 09:30 Acetaminophen (Tylenol Supp) 650 mg Q6H PRN [place] fever Last administered on 09:17; Admin Dose 650 MG; Start 05/30/16 at 10:30 Metoprolol Tartrate (Lopressor) 25 mg BID PO Last administered on 06/03/16 20: 48; Admin Dose 25 MG; Start 05/30/16 at 21:00 Aspirin 81 mg 81 mg DAILY PO Last administered on 06/04/16 09:21; Admin Dose 81 MG; Start 05/31/16 at 09:00 Ondansetron HCl/ Dextrose (Zofran Inj/D5W) 54 ml @ 108 mls/hr Q6H PRN IV NAUSEA AND/OR VOMITING; Start 05/30/16 at 19:00 Ondansetron HCl (Zofran Inj) 4 mg Q6H PRN IV NAUSEA AND/OR VOMITING Last administered on 06/02/16 18:02; Admin Dose 4 MG; Start 05/30/16 at 19:30 Tobramycin (Tobramycin Iv Per Pharmacy) TOBRAMYCIN PER PHARMACY NOTE XX ; Start 05/30/16 at 23:30 Nitroglycerin (Nitroglycerin 0.4 Mg/Hr) 1 patch DAILY PRN TRANSDERM CHEST PAIN ; Start 06/01/16 at 16:30 Insulin Glargine (Lantus) 10 unit DAILY@08 SC Last administered on 06/04/16 09: 25; Admin Dose 10 UNIT; Start 06/02/16 at 08:00 Nitroglycerin 1 tab 1 tab Q5M PRN SL ANGINA; Start 06/02/16 at 17:30 Piperacillin Sod/ Tazobactam Sod 50 ml @ 100 mls/hr Q8 IVPB Last administered on 06/04/16 14:18; Admin Dose 100 MLS/HR; Start 06/04/16 at 14:00 Vancomycin HCl/ Sodium Chloride (Vancocin/NS) 150 ml @ 75 mls/hr 12 IVPB ; Start 06/05/16 at 12:00; Stop 06/05/16 at 20:00 MICHELLE MCDANIEL MD Jun 04, 2016 18:04
[2016-06-04] MEDS: ALBUMIN HUMAN 25% 100 ML IV PRN (21:01)
[2016-06-04] MEDS: TOBRAMYCIN 80 MG in SOD CHLORIDE 0.9% 50 ML IVPB SCH (23:29)
[2016-06-04] MEDS: LATANOPROST 0.005% 2.5 ML OPH BOTH EYES SCH (23:30)
[2016-06-05] VITALS (13 sets, daily range): BP systolic 108–146; BP diastolic 54–67; PULSE 78–96; RESP 16–20
[2016-06-05] MEDS: ALBUTEROL/IPRATROPIUM (NEB) 3 ML AMP INH SCH ×4 (02:43→20:29)
[2016-06-05] MEDS: PANTOPRAZOLE (EC) 40 MG TAB PO SCH (06:15)
[2016-06-05] MEDS: PIPER-TAZO 2.25 GM (PMX) 50 ML IVPB SCH ×3 (06:36→16:06)
[2016-06-05 07:42] LABS: EOSINOPHILS # 0.1 10^3/ul (0.0-0.5); EOSINOPHILS % 0.7 % (0.0-7.0); HEMATOCRIT 36.3 % (37.0-47.0); HEMOGLOBIN 11.9 g/dl (12.0-16.0); LYMPHOCYTES # 0.5 10^3/ul (0.8-2.9); LYMPHOCYTES % 4.3 % (15.0-51.0); MEAN CORPUSCULAR HEMOGLOBIN 31.4 pg (29.0-33.0); MEAN CORPUSCULAR HGB CONC 32.9 g/dl (32.0-37.0); MEAN CORPUSCULAR VOLUME 95.4 fl (82.0-101.0); MEAN PLATELET VOLUME 9.5 fl (7.4-10.4); MONOCYTE # 0.7 10^3/ul (0.3-0.9); PLATELET COUNT 242 10^3/UL (140-440); RED BLOOD COUNT 3.81 10^6/ul (4.20-5.40); RED CELL DISTRIBUTION WIDTH 15.6 % (11.5-14.5); UNCORRECTED WBC 12.4 10^3/ul (4.8-10.8); WHITE BLOOD COUNT 12.4 10^3/ul (4.8-10.8)
--- NOTE | 2016-06-05 07:46 | RADRPT ---
PROCEDURE: XR Chest. CLINICAL INDICATION: Dyspnea TECHNIQUE: Single frontal chest x-ray. COMPARISON: CT, 06/02/2016; x-ray, 05/29/2016 FINDINGS: There has been near-complete resolution of previously seen opacity in the medial right upper lung. Patchy increased opacity is noted at the left lung base, possibly atelectasis and/or pneumonia. The re is stable mild cardiomegaly. Aortic atherosclerotic calcification is noted. The osseous structu res are remarkable for degenerative spondylosis of the spine and bilateral shoulder osteoarthrosis. IMPRESSION: 1. There has been near-complete resolution of previously seen opacity in the medial right upper lex g, suggestive of resolving pneumonia. 2. New patchy opacity is seen at the left lung base, possibly atelectasis and/or pneumonia. 3. There is stable mild cardiomegaly and aortic atherosclerosis. RPTAT: QQ .Atul Chavez MD, MD Date Time Electronically viewed and signed by .Atul Chavez MD, on 06/05/2016 07:46 .R/
[2016-06-05 08:02] LABS: CONDITION 1; LH ANALYZER COMMENTS 1
[2016-06-05 08:15] LABS: POTASSIUM 4.8 mmol/L (3.5-5.1)
[2016-06-05 08:18] LABS: CREATININE 3.55 mg/dl (0.44-1.00)
[2016-06-05] MEDS: SEVELAMER CARBONATE 0.8 GM PKT PO SCH ×3 (08:51→17:34)
[2016-06-05] MEDS: CALCIUM ACETATE 667 MG CAP PO SCH ×3 (08:51→17:35)
[2016-06-05] MEDS: INSULIN GLARGINE [LANtus] 3 ML PEN SC SCH (08:53)
[2016-06-05] MEDS: INSULIN ASPART [NOVOLOG] 3 ML PEN SC SCH ×4 (08:54→22:09)
[2016-06-05] MEDS: FLUOXETINE 20 MG CAP PO SCH (08:55)
[2016-06-05] MEDS: ASPIRIN 81 MG TAB PO SCH (08:55)
[2016-06-05] MEDS: GABAPENTIN 100 MG CAP PO SCH ×3 (08:55→21:56)
[2016-06-05] MEDS: METHOCARBAMOL 500 MG TAB PO SCH (08:58)
[2016-06-05] MEDS: METOPROLOL 25 MG TAB PO SCH ×2 (08:58→21:56)
[2016-06-05] MEDS: ENOXAPARIN 30 MG/0.3 ML SYG SC SCH (08:59)
[2016-06-05] MEDS: ONDANSETRON 4 MG INJ IV PRN (09:12)
[2016-06-05] MEDS ORDERED: VANCOMYCIN 750 MG in SOD CHLORIDE 0.9% 150 ML IVPB SCH (12:00)
[2016-06-05] MEDS: metroNIDAZOLE 500 MG/NS (PMX) 100 ML IVPB SCH ×2 (12:33→21:56)
[2016-06-05] MEDS: LOSARTAN 50 MG TAB PO SCH (12:39)
[2016-06-05] MEDS: AMLODIPINE 10 MG TAB PO SCH (12:40)
--- NOTE | 2016-06-05 13:08 | CONS ---
Date/Time of Note Date/Time of Note DATE: 06/05/16 TIME: 13:08 Consult Date/Type/Reason Admit Date/Time May 29, 2016 at 14:54 Type of Consultation: Pulm Ordering Provider: MICHELLE MCDANIEL MD Subjective Feels considerably better Objective Vital Signs Date Time Temp Pulse Resp B/P Pulse Ox O2 Delivery O2 Flow Rate FiO2 06/05/16 11:50 98.6 93 20 117/55 99 06/05/16 08:18 Nasal Cannula 2.0 Intake and Output 06/04/16 06/04/16 06/05/16 15:00 23:00 07:00 Intake Total 1590 ml 142 ml Output Total 2600 ml Balance -1010 ml 142 ml GENERAL: Elderly lady comfortable at rest VITAL SIGNS: per chart NECK: Supple. No JVD or lymphadenopathy. CARDIAC EXAM: S1, S2. No added sounds or murmurs. CHEST: clear bilaterally, No added sounds, rales or wheezes ABDOMEN: Soft, nontender. No guarding or rebound. EXTREMITIES: No cyanosis, clubbing or edema. NEUROLOGIC: Generalized weakness. No focal deficits. Results/Medications Result Diagram: 06/05/16 0704 06/05/16 0704 Results 24 hrs Laboratory Tests Test 06/04/16 14:12 06/04/16 16:44 06/04/16 22:20 06/05/16 07:04 Bedside Glucose 266 H 269 H 182 Anion Gap 26 H Basophils # 0.0 Basophils % 0.0 Blood Morphology Comment Blood Urea Nitrogen 47 #H Calcium Level 9.0 Carbon Dioxide Level 22 Chloride Level 95 L Creatinine 3.55 #H Eosinophils # 0.1 Eosinophils % 0.7 Glucose Level 207 Hematocrit 36.3 L Hemoglobin 11.9 L Lymphocytes # 0.5 L Lymphocytes % 4.3 L Mean Corpuscular Hemoglobin 31.4 Mean Corpuscular Hemoglobin Concent 32.9 Mean Corpuscular Volume 95.4 Mean Platelet Volume 9.5 Monocytes # 0.7 Monocytes % 6.0 Neutrophils # 11.0 H Neutrophils % 89.0 H Nucleated Red Blood Cells # 0.0 Nucleated Red Blood Cells % 0.0 Platelet Count 242 Potassium Level 4.8 Red Blood Count 3.81 L Red Cell Distribution Width 15.6 H Sodium Level 138 White Blood Count 12.4 #H Test 06/05/16 07:44 06/05/16 12:04 Bedside Glucose 197 233 H Medications Current Medications Amlodipine Besylate (Norvasc) 10 mg DAILY PO Last administered on 06/05/16 12: 40; Admin Dose 10 MG; Start 05/30/16 at 09:00 Latanoprost (Xalatan) 1 drop HS BOTH EYES Last administered on 06/04/16 23:30; Admin Dose 1 DROP; Start 05/29/16 at 21:00 Clonidine (Catapres) 0.1 mg TID PO Last administered on 06/05/16 12:40; Admin Dose 0.1 MG; Start 05/29/16 at 21:00 Fluoxetine HCl (Prozac) 20 mg DAILY PO Last administered on 06/05/16 08:55; Admin Dose 20 MG; Start 05/30/16 at 09:00 Gabapentin (Neurontin) 100 mg TID PO Last administered on 06/05/16 12:33; Admin Dose 100 MG; Start 05/29/16 at 21:00 Hydralazine HCl (Apresoline) 50 mg TID PO Last administered on 06/05/16 12:41; Admin Dose 50 MG; Start 05/29/16 at 21:00 Hydromorphone HCl (Dilaudid) 2 mg Q4H PRN PO PAIN; Start 05/29/16 at 18:00 Losartan Potassium (Cozaar) 50 mg DAILY PO Last administered on 06/05/16 12:39 ; Admin Dose 50 MG; Start 05/30/16 at 09:00 Methocarbamol (Robaxin) 500 mg DAILY PO Last administered on 06/05/16 08:58; Admin Dose 500 MG; Start 05/30/16 at 09:00 Acetaminophen (Tylenol Tab) 650 mg Q6H PRN PO PAIN LEVEL 1-3 OR FEVER Last administered on 06/04/16 23:28; Admin Dose 650 MG; Start 05/29/16 at 18:00 Docusate Sodium (Colace) 100 mg Q12H PRN PO CONSTIPATION; Start 05/29/16 at 18: 00 Magnesium Hydroxide (Milk Of Mag) 30 ml DAILY PRN PO CONSTIPATION; Start at 18:00 Bisacodyl (Dulcolax) 5 mg DAILY PRN PO CONSTIPATION; Start 05/29/16 at 18:00 Pantoprazole (Protonix Tab) 40 mg DAILY@06 PO Last administered on 06/05/16 06: 15; Admin Dose 40 MG; Start 05/30/16 at 06:00 Enoxaparin Sodium (Lovenox) 30 mg DAILY SC Last administered on 06/05/16 08:59 ; Admin Dose 30 MG; Start 05/30/16 at 09:00 Miscellaneous Information 1 ea NOTE XX ; Start 05/29/16 at 19:00 Glucose (Glutose) 15 gm Q15M PRN PO DECREASED GLUCOSE; Start 05/29/16 at 19:00 Glucose (Glutose) 22.5 gm Q15M PRN PO DECREASED GLUCOSE; Start 05/29/16 at 19:00 Dextrose (D50w Syringe) 25 ml Q15M PRN IV DECREASED GLUCOSE; Start 05/29/16 at 19:00 Dextrose (D50w Syringe) 50 ml Q15M PRN IV DECREASED GLUCOSE; Start 05/29/16 at 19:00 Glucagon (Glucagen) 1 mg Q15M PRN IM DECREASED GLUCOSE; Start 05/29/16 at 19:00 Glucose (Glutose) 15 gm Q15M PRN BUCCAL DECREASED GLUCOSE; Start 05/29/16 at 19: 00 Hydralazine HCl (Apresoline) 20 mg Q6H PRN IV sbp >170 Last administered on 05/30 09:21; Admin Dose 20 MG; Start 05/30/16 at 09:30 Acetaminophen (Tylenol Supp) 650 mg Q6H PRN [place] fever Last administered on 09:17; Admin Dose 650 MG; Start 05/30/16 at 10:30 Metoprolol Tartrate (Lopressor) 25 mg BID PO Last administered on 06/05/16 08: 58; Admin Dose 25 MG; Start 05/30/16 at 21:00 Aspirin 81 mg 81 mg DAILY PO Last administered on 06/05/16 08:55; Admin Dose 81 MG; Start 05/31/16 at 09:00 Ondansetron HCl/ Dextrose (Zofran Inj/D5W) 54 ml @ 108 mls/hr Q6H PRN IV NAUSEA AND/OR VOMITING; Start 05/30/16 at 19:00 Ondansetron HCl (Zofran Inj) 4 mg Q6H PRN IV NAUSEA AND/OR VOMITING Last administered on 06/05/16 09:12; Admin Dose 4 MG; Start 05/30/16 at 19:30 Tobramycin (Tobramycin Iv Per Pharmacy) TOBRAMYCIN PER PHARMACY NOTE XX ; Start 05/30/16 at 23:30 Nitroglycerin (Nitroglycerin 0.4 Mg/Hr) 1 patch DAILY PRN TRANSDERM CHEST PAIN ; Start 06/01/16 at 16:30 Insulin Glargine (Lantus) 10 unit DAILY@08 SC Last administered on 06/05/16 08: 53; Admin Dose 10 UNIT; Start 06/02/16 at 08:00 Nitroglycerin 1 tab 1 tab Q5M PRN SL ANGINA; Start 06/02/16 at 17:30 Piperacillin Sod/ Tazobactam Sod 50 ml @ 100 mls/hr Q8 IVPB Last administered on 06/05/16 06:36; Admin Dose 100 MLS/HR; Start 06/04/16 at 14:00 Vancomycin HCl 750 mg/Sodium Chloride 150 ml @ 75 mls/hr 12 IVPB ; Start at 12:00; Stop 06/05/16 at 20:00 Metronidazole (Flagyl 500 Mg (Pmx)) 100 ml @ 100 mls/hr Q8 IVPB Last administered on 06/05/16 12:33; Admin Dose 100 MLS/HR; Start 06/05/16 at 11:00 Assessment/Plan Chief Complaint/Hosp Course IMPRESSION AND PLAN: Right upper lobe dense consolidation enveloping right upper lobe anteriorly, almost complete resolution radiographically with improved leukocytosis 1. Continue to follow radiographic improvement right upper lobe infiltrate 2. aspiration precautions. 3. Continue broad-spectrum antibiotic coverage for likely postobstructive pneumonia. 4. Continue DVT and GI prophylaxis. 5. Continue hemodialysis with volume removal. Consider discharge planning with by mouth antibiotics Problems: EHSAN SHEFFIELD MD, FCCP Jun 05, 2016 13:08
--- NOTE | 2016-06-05 13:23 | CONS ---
Date/Time of Note Date/Time of Note DATE: 06/05/16 TIME: 13:20 Assessment/Plan Assessment/Plan Chief Complaint/Hosp Course IMPRESSION: 1. Positive troponin, assess significance. No sig uptrend and lexiscan this admit negative for ischemia 2. Shortness of breath, assess for congestive heart failure. 3. Abnormal electrocardiogram. Assess for acute coronary syndrome. 4. Pneumonia by chest x-ray and chest CT. 5. Chest mass and hilar lymphadenopathy.-by CT posssibly only infiltrate and not mass 6. End-stage renal disease on hemodialysis. 7. Leukocytosis. 8. Anemia. 9. Cardiomyopathy-LVEF 45% by echo Recc: -Tele -Continue abx;'s and f/u cx data -Continue asa -Continue norvasc/clonidine/BB/losartan/hydralazine and follow BP closely -PRN SL NTG for recurrent chest pain -HD for volume removal Problems: Consultation Date/Type/Reason Admit Date/Time May 29, 2016 at 14:54 Initial Consult Date 05/30/2016 Type of Consultation: Cardiology Reason for Consultation positive troponin Referring Provider: MICHELLE MCDANIEL MD Exam/Review of Systems Vital Signs Vitals Vital Signs Date Time Temp Pulse Resp B/P Pulse Ox O2 Delivery O2 Flow Rate FiO2 06/05/16 11:50 98.6 93 20 117/55 99 06/05/16 08:18 Nasal Cannula 2.0 Intake and Output 06/04/16 06/04/16 06/05/16 15:00 23:00 07:00 Intake Total 1590 ml 142 ml Output Total 2600 ml Balance -1010 ml 142 ml Exam Review of Systems: CONSTITUTIONAL: No fevers, chills. PULMONARY: No sob CARDIOVASCULAR: No chest pain/palpitations GASTROINTESTINAL: No nausea/vomiting. GENITOURINARY: No hematuria/dysuria. MUSCULOSKELETAL: No myagias/arthalgias. PSYCHIATRIC: The patient denies depression. NEUROLOGIC: More alert today Constitutional: alert Psych: no complaints Head: normocephalic ENMT: mucosa pink and moist Neck: jvd (9 cm water), supple Respiratory: clear to auscultation Cardiovascular: regular rate and rhythm Gastrointestinal: non-tender, soft Musculoskeletal: muscle tone (normal) Extremities: pitting pedal edema (none) Neurological: lethargic Results Result Diagram: 06/05/16 0704 06/05/16 0704 Results 24 hrs Laboratory Tests Test 06/04/16 14:12 06/04/16 16:44 06/04/16 22:20 06/05/16 07:04 Bedside Glucose 266 H 269 H 182 Anion Gap 26 H Basophils # 0.0 Basophils % 0.0 Blood Morphology Comment Blood Urea Nitrogen 47 #H Calcium Level 9.0 Carbon Dioxide Level 22 Chloride Level 95 L Creatinine 3.55 #H Eosinophils # 0.1 Eosinophils % 0.7 Glucose Level 207 Hematocrit 36.3 L Hemoglobin 11.9 L Lymphocytes # 0.5 L Lymphocytes % 4.3 L Mean Corpuscular Hemoglobin 31.4 Mean Corpuscular Hemoglobin Concent 32.9 Mean Corpuscular Volume 95.4 Mean Platelet Volume 9.5 Monocytes # 0.7 Monocytes % 6.0 Neutrophils # 11.0 H Neutrophils % 89.0 H Nucleated Red Blood Cells # 0.0 Nucleated Red Blood Cells % 0.0 Platelet Count 242 Potassium Level 4.8 Red Blood Count 3.81 L Red Cell Distribution Width 15.6 H Sodium Level 138 White Blood Count 12.4 #H Test 06/05/16 07:44 06/05/16 12:04 Bedside Glucose 197 233 H Medications Medications Current Medications Amlodipine Besylate (Norvasc) 10 mg DAILY PO Last administered on 06/05/16 12: 40; Admin Dose 10 MG; Start 05/30/16 at 09:00 Latanoprost (Xalatan) 1 drop HS BOTH EYES Last administered on 06/04/16 23:30; Admin Dose 1 DROP; Start 05/29/16 at 21:00 Clonidine (Catapres) 0.1 mg TID PO Last administered on 06/05/16 12:40; Admin Dose 0.1 MG; Start 05/29/16 at 21:00 Fluoxetine HCl (Prozac) 20 mg DAILY PO Last administered on 06/05/16 08:55; Admin Dose 20 MG; Start 05/30/16 at 09:00 Gabapentin (Neurontin) 100 mg TID PO Last administered on 06/05/16 12:33; Admin Dose 100 MG; Start 05/29/16 at 21:00 Hydralazine HCl (Apresoline) 50 mg TID PO Last administered on 06/05/16 12:41; Admin Dose 50 MG; Start 05/29/16 at 21:00 Hydromorphone HCl (Dilaudid) 2 mg Q4H PRN PO PAIN; Start 05/29/16 at 18:00 Losartan Potassium (Cozaar) 50 mg DAILY PO Last administered on 06/05/16 12:39 ; Admin Dose 50 MG; Start 05/30/16 at 09:00 Methocarbamol (Robaxin) 500 mg DAILY PO Last administered on 06/05/16 08:58; Admin Dose 500 MG; Start 05/30/16 at 09:00 Acetaminophen (Tylenol Tab) 650 mg Q6H PRN PO PAIN LEVEL 1-3 OR FEVER Last administered on 06/04/16 23:28; Admin Dose 650 MG; Start 05/29/16 at 18:00 Docusate Sodium (Colace) 100 mg Q12H PRN PO CONSTIPATION; Start 05/29/16 at 18: 00 Magnesium Hydroxide (Milk Of Mag) 30 ml DAILY PRN PO CONSTIPATION; Start at 18:00 Bisacodyl (Dulcolax) 5 mg DAILY PRN PO CONSTIPATION; Start 05/29/16 at 18:00 Pantoprazole (Protonix Tab) 40 mg DAILY@06 PO Last administered on 06/05/16 06: 15; Admin Dose 40 MG; Start 05/30/16 at 06:00 Enoxaparin Sodium (Lovenox) 30 mg DAILY SC Last administered on 06/05/16 08:59 ; Admin Dose 30 MG; Start 05/30/16 at 09:00 Miscellaneous Information 1 ea NOTE XX ; Start 05/29/16 at 19:00 Glucose (Glutose) 15 gm Q15M PRN PO DECREASED GLUCOSE; Start 05/29/16 at 19:00 Glucose (Glutose) 22.5 gm Q15M PRN PO DECREASED GLUCOSE; Start 05/29/16 at 19:00 Dextrose (D50w Syringe) 25 ml Q15M PRN IV DECREASED GLUCOSE; Start 05/29/16 at 19:00 Dextrose (D50w Syringe) 50 ml Q15M PRN IV DECREASED GLUCOSE; Start 05/29/16 at 19:00 Glucagon (Glucagen) 1 mg Q15M PRN IM DECREASED GLUCOSE; Start 05/29/16 at 19:00 Glucose (Glutose) 15 gm Q15M PRN BUCCAL DECREASED GLUCOSE; Start 05/29/16 at 19: 00 Hydralazine HCl (Apresoline) 20 mg Q6H PRN IV sbp >170 Last administered on 05/30 09:21; Admin Dose 20 MG; Start 05/30/16 at 09:30 Acetaminophen (Tylenol Supp) 650 mg Q6H PRN [place] fever Last administered on 09:17; Admin Dose 650 MG; Start 05/30/16 at 10:30 Metoprolol Tartrate (Lopressor) 25 mg BID PO Last administered on 06/05/16 08: 58; Admin Dose 25 MG; Start 05/30/16 at 21:00 Aspirin 81 mg 81 mg DAILY PO Last administered on 06/05/16 08:55; Admin Dose 81 MG; Start 05/31/16 at 09:00 Ondansetron HCl/ Dextrose (Zofran Inj/D5W) 54 ml @ 108 mls/hr Q6H PRN IV NAUSEA AND/OR VOMITING; Start 05/30/16 at 19:00 Ondansetron HCl (Zofran Inj) 4 mg Q6H PRN IV NAUSEA AND/OR VOMITING Last administered on 06/05/16 09:12; Admin Dose 4 MG; Start 05/30/16 at 19:30 Tobramycin (Tobramycin Iv Per Pharmacy) TOBRAMYCIN PER PHARMACY NOTE XX ; Start 05/30/16 at 23:30 Nitroglycerin (Nitroglycerin 0.4 Mg/Hr) 1 patch DAILY PRN TRANSDERM CHEST PAIN ; Start 06/01/16 at 16:30 Insulin Glargine (Lantus) 10 unit DAILY@08 SC Last administered on 06/05/16 08: 53; Admin Dose 10 UNIT; Start 06/02/16 at 08:00 Nitroglycerin 1 tab 1 tab Q5M PRN SL ANGINA; Start 06/02/16 at 17:30 Piperacillin Sod/ Tazobactam Sod 50 ml @ 100 mls/hr Q8 IVPB Last administered on 06/05/16 06:36; Admin Dose 100 MLS/HR; Start 06/04/16 at 14:00 Vancomycin HCl 750 mg/Sodium Chloride 150 ml @ 75 mls/hr 12 IVPB ; Start at 12:00; Stop 06/05/16 at 20:00 Metronidazole (Flagyl 500 Mg (Pmx)) 100 ml @ 100 mls/hr Q8 IVPB Last administered on 06/05/16t 12:33; Admin Dose 100 MLS/HR; Start 06/05/16 at 11:00 ANNAMARIE SANTANA Jun 05, 2016 13:23
[2016-06-05] MEDS: ACETAMINOPHEN 325 MG TAB PO PRN ×2 (14:19→22:28)
[2016-06-05] MEDS ORDERED: AMIKACIN IV PER PHARMACY XX SCH (17:00)
--- NOTE | 2016-06-05 17:10 | PN ---
DATE: 06/05/2016 SUBJECTIVE: This is an infectious disease progress note. No acute events overnight. The patient i s sleeping, looks comfortable, no fevers. WBC 12.4, neutrophils 89, no bands. BUN 47, creatinine 3.55. Indwellings: AV fistula. MICROBIOLOGY: Stool for C. diff on June 04 came back positive. ANTIMICROBIALS: The patient is on: 1. Vancomycin. 2. Flagyl. 3. Zosyn. 4. Tobramycin. PHYSICAL EXAMINATION: GENERAL: This is a chronically ill-appearing, elderly woman who is lying comfortably in bed. HEENT: Head atraumatic, normocephalic. Sclerae anicteric. Buccal mucosa dry. NECK: Supple. CHEST: Rise symmetrical. Breath sounds diminished to bases. HEART: S1, S2. ABDOMEN: Soft, bowel tones present. EXTREMITIES: No cyanosis. ASSESSMENT: 1. Systemic inflammatory response syndrome. 2. Pneumonia with radiographic improvement. 3. Clostridium difficile colitis. 4. End-stage renal disease, hemodialysis dependent. 5. Right upper extremity AV fistula. 6. Cardiomyopathy with elevated troponins. 7. Diabetes. PLAN: The patient remains stable. We are going to discontinue Zosyn and tobramycin and start her o n amikacin. Continue Flagyl and follow recommendations of consultants. Dictated By: PAULA CHANEL DISTILL[employer] SUPERVISOR for SHAWN ARMAS/YAHIR Conf#: [id number] DID#: [id number]
--- NOTE | 2016-06-05 18:02 | PN ---
Date/Time of Note Date/Time of Note DATE: 06/05/16 TIME: 18:01 Assessment/Plan VTE Prophylaxis VTE Prophylaxis Intervention: other Lines/Catheters IV [facility] [place] [facility] Assessment/Plan Chief Complaint/Hosp Course IMPRESSION: 1. Patient has pneumonia.better 2. Lung mass.better 3. Pulmonary edema.better 4. The patient has hypertension, diabetes mellitus, leukocytosis, , anemia, atherosclerotic heart disease, positive troponin. 5 sepsis 6 lexiscan neg 7 c diff plan hd per cardio pulmonary antibiotic per id flagyl Problems: Subjective 24 Hr Interval Summary Subjective hx not possible: other (c diff +) Cardiovascular: no complaints Gastrointestinal: no complaints Exam/Review of Systems Vital Signs Vitals Vital Signs Date Time Temp Pulse Resp B/P Pulse Ox O2 Delivery O2 Flow Rate FiO2 06/05/16 17:39 86 108/56 06/05/16 16:29 98.3 20 95 06/05/16 13:35 2.0 06/05/16 13:33 Nasal Cannula Intake and Output 06/04/16 06/04/16 06/05/16 15:00 23:00 07:00 Intake Total 1590 ml 142 ml Output Total 2600 ml Balance -1010 ml 142 ml Exam Respiratory: clear to auscultation Cardiovascular: regular rate and rhythm Gastrointestinal: soft Musculoskeletal: nl extremities to inspection Extremities: normal pulses Results Result Diagram: 06/05/16 0704 06/05/16 0704 Results 24 hrs Laboratory Tests Test 06/04/16 22:20 06/05/16 07:04 06/05/16 07:44 06/05/16 12:04 Bedside Glucose 182 197 233 H Anion Gap 26 H Basophils # 0.0 Basophils % 0.0 Blood Morphology Comment Blood Urea Nitrogen 47 #H Calcium Level 9.0 Carbon Dioxide Level 22 Chloride Level 95 L Creatinine 3.55 #H Eosinophils # 0.1 Eosinophils % 0.7 Glucose Level 207 Hematocrit 36.3 L Hemoglobin 11.9 L Lymphocytes # 0.5 L Lymphocytes % 4.3 L Mean Corpuscular Hemoglobin 31.4 Mean Corpuscular Hemoglobin Concent 32.9 Mean Corpuscular Volume 95.4 Mean Platelet Volume 9.5 Monocytes # 0.7 Monocytes % 6.0 Neutrophils # 11.0 H Neutrophils % 89.0 H Nucleated Red Blood Cells # 0.0 Nucleated Red Blood Cells % 0.0 Platelet Count 242 Potassium Level 4.8 Red Blood Count 3.81 L Red Cell Distribution Width 15.6 H Sodium Level 138 White Blood Count 12.4 #H Test 06/05/16 16:05 06/05/16 17:26 Bedside Glucose 266 H 281 H Medications Medications Current Medications Amlodipine Besylate (Norvasc) 10 mg DAILY PO Last administered on 06/05/16 12: 40; Admin Dose 10 MG; Start 05/30/16 at 09:00 Latanoprost (Xalatan) 1 drop HS BOTH EYES Last administered on 06/04/16 23:30; Admin Dose 1 DROP; Start 05/29/16 at 21:00 Clonidine (Catapres) 0.1 mg TID PO Last administered on 06/05/16 12:40; Admin Dose 0.1 MG; Start 05/29/16 at 21:00 Fluoxetine HCl (Prozac) 20 mg DAILY PO Last administered on 06/05/16 08:55; Admin Dose 20 MG; Start 05/30/16 at 09:00 Gabapentin (Neurontin) 100 mg TID PO Last administered on 06/05/16 12:33; Admin Dose 100 MG; Start 05/29/16 at 21:00 Hydralazine HCl (Apresoline) 50 mg TID PO Last administered on 06/05/16 12:41; Admin Dose 50 MG; Start 05/29/16 at 21:00 Hydromorphone HCl (Dilaudid) 2 mg Q4H PRN PO PAIN; Start 05/29/16 at 18:00 Losartan Potassium (Cozaar) 50 mg DAILY PO Last administered on 06/05/16 12:39 ; Admin Dose 50 MG; Start 05/30/16 at 09:00 Methocarbamol (Robaxin) 500 mg DAILY PO Last administered on 06/05/16 08:58; Admin Dose 500 MG; Start 05/30/16 at 09:00 Acetaminophen (Tylenol Tab) 650 mg Q6H PRN PO PAIN LEVEL 1-3 OR FEVER Last administered on 06/05/16 14:19; Admin Dose 650 MG; Start 05/29/16 at 18:00 Docusate Sodium (Colace) 100 mg Q12H PRN PO CONSTIPATION; Start 05/29/16 at 18: 00 Magnesium Hydroxide (Milk Of Mag) 30 ml DAILY PRN PO CONSTIPATION; Start at 18:00 Bisacodyl (Dulcolax) 5 mg DAILY PRN PO CONSTIPATION; Start 05/29/16 at 18:00 Pantoprazole (Protonix Tab) 40 mg DAILY@06 PO Last administered on 06/05/16 06: 15; Admin Dose 40 MG; Start 05/30/16 at 06:00 Enoxaparin Sodium (Lovenox) 30 mg DAILY SC Last administered on 06/05/16 08:59 ; Admin Dose 30 MG; Start 05/30/16 at 09:00 Miscellaneous Information 1 ea NOTE XX ; Start 05/29/16 at 19:00 Glucose (Glutose) 15 gm Q15M PRN PO DECREASED GLUCOSE; Start 05/29/16 at 19:00 Glucose (Glutose) 22.5 gm Q15M PRN PO DECREASED GLUCOSE; Start 05/29/16 at 19:00 Dextrose (D50w Syringe) 25 ml Q15M PRN IV DECREASED GLUCOSE; Start 05/29/16 at 19:00 Dextrose (D50w Syringe) 50 ml Q15M PRN IV DECREASED GLUCOSE; Start 05/29/16 at 19:00 Glucagon (Glucagen) 1 mg Q15M PRN IM DECREASED GLUCOSE; Start 05/29/16 at 19:00 Glucose (Glutose) 15 gm Q15M PRN BUCCAL DECREASED GLUCOSE; Start 05/29/16 at 19: 00 Hydralazine HCl (Apresoline) 20 mg Q6H PRN IV sbp >170 Last administered on 05/30 09:21; Admin Dose 20 MG; Start 05/30/16 at 09:30 Acetaminophen (Tylenol Supp) 650 mg Q6H PRN [place] fever Last administered on 09:17; Admin Dose 650 MG; Start 05/30/16 at 10:30 Metoprolol Tartrate (Lopressor) 25 mg BID PO Last administered on 06/05/16 08: 58; Admin Dose 25 MG; Start 05/30/16 at 21:00 Aspirin 81 mg 81 mg DAILY PO Last administered on 06/05/16 08:55; Admin Dose 81 MG; Start 05/31/16 at 09:00 Ondansetron HCl/ Dextrose (Zofran Inj/D5W) 54 ml @ 108 mls/hr Q6H PRN IV NAUSEA AND/OR VOMITING; Start 05/30/16 at 19:00 Ondansetron HCl (Zofran Inj) 4 mg Q6H PRN IV NAUSEA AND/OR VOMITING Last administered on 06/05/16 09:12; Admin Dose 4 MG; Start 05/30/16 at 19:30 Nitroglycerin (Nitroglycerin 0.4 Mg/Hr) 1 patch DAILY PRN TRANSDERM CHEST PAIN ; Start 06/01/16 at 16:30 Insulin Glargine (Lantus) 10 unit DAILY@08 SC Last administered on 06/05/16 08: 53; Admin Dose 10 UNIT; Start 06/02/16 at 08:00 Nitroglycerin 1 tab 1 tab Q5M PRN SL ANGINA; Start 06/02/16 at 17:30 Vancomycin HCl 750 mg/Sodium Chloride 150 ml @ 75 mls/hr 12 IVPB Last administered on 06/05/16 13:44; Admin Dose 75 MLS/HR; Start 06/05/16 at 12:00; Stop 06/05/16 at 20:00 Metronidazole (Flagyl 500 Mg (Pmx)) 100 ml @ 100 mls/hr Q8 IVPB Last administered on 06/05/16 12:33; Admin Dose 100 MLS/HR; Start 06/05/16 at 11:00 Amikacin Sulfate AMIKACIN PER PHARMACY NOTE XX ; Start 06/05/16 at 17:00 Amikacin Sulfate/ Sodium Chloride (Amikacin/NS) 101.6 ml @ 101.6 mls/ hr ONCE IVPB ; Start 06/05/16 at 18:30; Stop 06/05/16 at 23:00 MICHELLE MCDANIEL MD Jun 05, 2016 18:02
[2016-06-05] MEDS ORDERED: AMIKACIN 400 MG in SOD CHLORIDE 0.9% 100 ML IVPB SCH (18:30)
[2016-06-05] MEDS: LATANOPROST 0.005% 2.5 ML OPH BOTH EYES SCH (21:55)
[2016-06-05] MEDS ORDERED: AMIKACIN 300 MG in DEXTROSE 5% 100 ML IVPB SCH (22:00)
[2016-06-06] VITALS (20 sets, daily range): BP systolic 81–176; BP diastolic 51–77; PULSE 76–92; RESP 16–19
[2016-06-06] MEDS: ALBUTEROL/IPRATROPIUM (NEB) 3 ML AMP INH SCH ×4 (02:00→19:50)
[2016-06-06] MEDS: metroNIDAZOLE 500 MG/NS (PMX) 100 ML IVPB SCH ×3 (05:37→23:20)
[2016-06-06] MEDS: PANTOPRAZOLE (EC) 40 MG TAB PO SCH (05:38)
[2016-06-06 07:33] LABS: ADD SCAN DIFF NO
[2016-06-06 07:43] LABS: ABNORMAL IP MESSAGE 1; BASOPHILS % 0.2 % (0.0-2.0); EOSINOPHILS # 0.1 10^3/ul (0.0-0.5); EOSINOPHILS % 0.6 % (0.0-7.0); HEMATOCRIT 36.2 % (37.0-47.0); HEMOGLOBIN 11.3 g/dl (12.0-16.0); LYMPHOCYTES # 0.5 10^3/ul (0.8-2.9); LYMPHOCYTES % 4.3 % (15.0-51.0); MEAN CORPUSCULAR HEMOGLOBIN 30.3 pg (29.0-33.0); MEAN CORPUSCULAR HGB CONC 31.2 g/dl (32.0-37.0); MEAN CORPUSCULAR VOLUME 97.1 fl (82.0-101.0); MEAN PLATELET VOLUME 11.6 fl (7.4-10.4); MONOCYTES % 8.8 % (0.0-11.0); NEUTROPHILS % 84.3 % (39.0-77.0); PLATELET COUNT 308 10^3/UL (140-415); RED BLOOD COUNT 3.73 10^6/ul (4.20-5.40); RED CELL DISTRIBUTION WIDTH 14.9 % (11.5-14.5); WHITE BLOOD COUNT 11.8 10^3/ul (4.8-10.8)
[2016-06-06 08:18] LABS: CREATININE 5.76 mg/dl (0.44-1.00)
[2016-06-06 08:19] LABS: CALCIUM 8.7 mg/dl (8.4-10.2)
[2016-06-06] MEDS: METOPROLOL 25 MG TAB PO SCH ×2 (09:00→21:00)
[2016-06-06] MEDS: LOSARTAN 50 MG TAB PO SCH (09:00)
[2016-06-06] MEDS: AMLODIPINE 10 MG TAB PO SCH (09:00)
[2016-06-06] MEDS: CALCIUM ACETATE 667 MG CAP PO SCH ×3 (09:34→17:18)
[2016-06-06] MEDS: SEVELAMER CARBONATE 0.8 GM PKT PO SCH ×3 (09:34→17:18)
[2016-06-06] MEDS: ENOXAPARIN 30 MG/0.3 ML SYG SC SCH (09:35)
[2016-06-06] MEDS: METHOCARBAMOL 500 MG TAB PO SCH (09:37)
[2016-06-06] MEDS: GABAPENTIN 100 MG CAP PO SCH ×3 (09:37→23:20)
[2016-06-06] MEDS: ACETAMINOPHEN 325 MG TAB PO PRN ×3 (09:37→23:21)
[2016-06-06] MEDS: FLUOXETINE 20 MG CAP PO SCH (09:37)
[2016-06-06] MEDS: ASPIRIN 81 MG TAB PO SCH (09:37)
[2016-06-06] MEDS: INSULIN ASPART [NOVOLOG] 3 ML PEN SC SCH ×4 (09:38→21:00)
[2016-06-06] MEDS: INSULIN GLARGINE [LANtus] 3 ML PEN SC SCH (09:39)
--- NOTE | 2016-06-06 13:00 | PN ---
DATE: 06/06/2016 SUBJECTIVE: Patient Ruel remains stable, no new event. Still has significant weakness but remains hemodynamically stable. OBJECTIVE: VITAL SIGNS: Temperature 98, pulse is 84, blood pressure 119/60, O2 saturation 96% on 2 liters. NECK: Supple. No JVD or lymphadenopathy. CARDIAC: S1, S2, no added sounds or murmurs. CHEST: Diminished air entry bilaterally. ABDOMEN: Soft, nontender. No guarding or rebound. EXTREMITIES: No cyanosis, clubbing, 1+ edema. NEUROLOGIC: Grossly intact. No focal deficits. LABORATORY DATA: White count 11.8, hemoglobin 11.3, platelets of 308. BUN 71, creatinine 5.76. IMPRESSION AND PLAN: 1. Resolving right upper lobe pneumonia. 2. Renal insufficiency. 3. Possible early dementia. PLAN: 1. Continue antibiotics per infectious diseases. 2. Aspiration precautions. 3. Hemodialysis. 4. Consider discharge planning. Dictated By: EHSAN MENDIOLA/YAHIR Conf#: [id number] DID#: [id number]
--- NOTE | 2016-06-06 13:28 | CONS ---
Date/Time of Note Date/Time of Note DATE: 06/06/16 TIME: 13:26 Assessment/Plan Assessment/Plan Chief Complaint/Hosp Course IMPRESSION: 1. Positive troponin, assess significance. No sig uptrend and lexiscan this admit negative for ischemia 2. Shortness of breath, assess for congestive heart failure. 3. Abnormal electrocardiogram. Assess for acute coronary syndrome. 4. Pneumonia by chest x-ray and chest CT. 5. Chest mass and hilar lymphadenopathy.-by CT posssibly only infiltrate and not mass 6. End-stage renal disease on hemodialysis. 7. Leukocytosis. 8. Anemia. 9. Cardiomyopathy-LVEF 45% by echo Recc: -Tele -Continue abx;'s and f/u cx data -Continue asa -Continue norvasc/clonidine/BB/losartan/hydralazine and follow BP closely -PRN SL NTG for recurrent chest pain -HD for volume removal Problems: Consultation Date/Type/Reason Admit Date/Time May 29, 2016 at 14:54 Initial Consult Date 05/30/2016 Type of Consultation: Cardiology Reason for Consultation positive troponin Referring Provider: MICHELLE MCDANIEL MD Exam/Review of Systems Vital Signs Vitals Vital Signs Date Time Temp Pulse Resp B/P Pulse Ox O2 Delivery O2 Flow Rate FiO2 06/06/16 12:20 84 06/06/16 11:58 98.1 19 119/60 97 06/06/16 08:45 Nasal Cannula 2.0 Intake and Output 06/05/16 06/05/16 06/06/16 15:00 23:00 07:00 Intake Total 100 ml 900 ml 120 ml Balance 100 ml 900 ml 120 ml Exam Review of Systems: CONSTITUTIONAL: No fevers, chills. PULMONARY: No sob CARDIOVASCULAR: No chest pain/palpitations GASTROINTESTINAL: No nausea/vomiting. GENITOURINARY: No hematuria/dysuria. MUSCULOSKELETAL: No myagias/arthalgias. PSYCHIATRIC: The patient denies depression. NEUROLOGIC: No weakness Constitutional: other (lethargic) Psych: no complaints Head: normocephalic ENMT: mucosa pink and moist Neck: jvd (9 cm water), supple Respiratory: diminished breath sounds (at bases/B) Cardiovascular: regular rate and rhythm Gastrointestinal: non-tender, soft Musculoskeletal: muscle tone (normal) Extremities: edema (none) Neurological: other (No focal deficits) Results Result Diagram: 06/06/16 0648 06/06/16 0648 Results 24 hrs Laboratory Tests Test 06/05/16 16:05 06/05/16 17:26 06/05/16 22:01 06/06/16 06:48 Bedside Glucose 266 H 281 H 236 H Anion Gap 26 H Basophils # 0.0 Basophils % 0.2 Blood Urea Nitrogen 71 H Calcium Level 8.7 Carbon Dioxide Level 24 Chloride Level 92 L Creatinine 5.76 #H Eosinophils # 0.1 Eosinophils % 0.6 Glucose Level 148 # Hematocrit 36.2 L Hemoglobin 11.3 L Lymphocytes # 0.5 L Lymphocytes % 4.3 L Mean Corpuscular Hemoglobin 30.3 Mean Corpuscular Hemoglobin Concent 31.2 L Mean Corpuscular Volume 97.1 Mean Platelet Volume 11.6 #H Monocytes # 1.0 H Monocytes % 8.8 Neutrophils # 10.0 H Neutrophils % 84.3 H Nucleated Red Blood Cells # 0.0 Nucleated Red Blood Cells % 0.0 Platelet Count 308 Potassium Level 4.0 Red Blood Count 3.73 L Red Cell Distribution Width 14.9 H Sodium Level 138 White Blood Count 11.8 H Test 06/06/16 07:41 06/06/16 12:26 Bedside Glucose 151 178 Medications Medications Current Medications Amlodipine Besylate (Norvasc) 10 mg DAILY PO Last administered on 06/05/16 12: 40; Admin Dose 10 MG; Start 05/30/16 at 09:00 Latanoprost (Xalatan) 1 drop HS BOTH EYES Last administered on 06/05/16 21:55; Admin Dose 1 DROP; Start 05/29/16 at 21:00 Clonidine (Catapres) 0.1 mg TID PO Last administered on 06/05/16 21:55; Admin Dose 0.1 MG; Start 05/29/16 at 21:00 Fluoxetine HCl (Prozac) 20 mg DAILY PO Last administered on 06/06/16 09:37; Admin Dose 20 MG; Start 05/30/16 at 09:00 Gabapentin (Neurontin) 100 mg TID PO Last administered on 06/06/16 12:25; Admin Dose 100 MG; Start 05/29/16 at 21:00 Hydralazine HCl (Apresoline) 50 mg TID PO Last administered on 06/05/16 21:55; Admin Dose 50 MG; Start 05/29/16 at 21:00 Hydromorphone HCl (Dilaudid) 2 mg Q4H PRN PO PAIN; Start 05/29/16 at 18:00 Losartan Potassium (Cozaar) 50 mg DAILY PO Last administered on 06/05/16 12:39 ; Admin Dose 50 MG; Start 05/30/16 at 09:00 Methocarbamol (Robaxin) 500 mg DAILY PO Last administered on 06/06/16 09:37; Admin Dose 500 MG; Start 05/30/16 at 09:00 Acetaminophen (Tylenol Tab) 650 mg Q6H PRN PO PAIN LEVEL 1-3 OR FEVER Last administered on 06/06/16 09:37; Admin Dose 650 MG; Start 05/29/16 at 18:00 Docusate Sodium (Colace) 100 mg Q12H PRN PO CONSTIPATION; Start 05/29/16 at 18: 00 Magnesium Hydroxide (Milk Of Mag) 30 ml DAILY PRN PO CONSTIPATION; Start at 18:00 Bisacodyl (Dulcolax) 5 mg DAILY PRN PO CONSTIPATION; Start 05/29/16 at 18:00 Pantoprazole (Protonix Tab) 40 mg DAILY@06 PO Last administered on 06/06/16 05 :38; Admin Dose 40 MG; Start 05/30/16 at 06:00 Enoxaparin Sodium (Lovenox) 30 mg DAILY SC Last administered on 06/06/16 09:35 ; Admin Dose 30 MG; Start 05/30/16 at 09:00 Miscellaneous Information 1 ea NOTE XX ; Start 05/29/16 at 19:00 Glucose (Glutose) 15 gm Q15M PRN PO DECREASED GLUCOSE; Start 05/29/16 at 19:00 Glucose (Glutose) 22.5 gm Q15M PRN PO DECREASED GLUCOSE; Start 05/29/16 at 19:00 Dextrose (D50w Syringe) 25 ml Q15M PRN IV DECREASED GLUCOSE; Start 05/29/16 at 19:00 Dextrose (D50w Syringe) 50 ml Q15M PRN IV DECREASED GLUCOSE; Start 05/29/16 at 19:00 Glucagon (Glucagen) 1 mg Q15M PRN IM DECREASED GLUCOSE; Start 05/29/16 at 19:00 Glucose (Glutose) 15 gm Q15M PRN BUCCAL DECREASED GLUCOSE; Start 05/29/16 at 19: 00 Hydralazine HCl (Apresoline) 20 mg Q6H PRN IV sbp >170 Last administered on 05/30 09:21; Admin Dose 20 MG; Start 05/30/16 at 09:30 Acetaminophen (Tylenol Supp) [address] fever Last administered on 09:17; Admin Dose 650 MG; Start 05/30/16 at 10:30 Metoprolol Tartrate (Lopressor) 25 mg BID PO Last administered on 06/05/16 21: 56; Admin Dose 25 MG; Start 05/30/16 at 21:00 Aspirin 81 mg 81 mg DAILY PO Last administered on 06/06/16 09:37; Admin Dose 81 MG; Start 05/31/16 at 09:00 Ondansetron HCl/ Dextrose (Zofran Inj/D5W) 54 ml @ 108 mls/hr Q6H PRN IV NAUSEA AND/OR VOMITING; Start 05/30/16 at 19:00 Ondansetron HCl (Zofran Inj) 4 mg Q6H PRN IV NAUSEA AND/OR VOMITING Last administered on 06/05/16 09:12; Admin Dose 4 MG; Start 05/30/16 at 19:30 Nitroglycerin (Nitroglycerin 0.4 Mg/Hr) 1 patch DAILY PRN TRANSDERM CHEST PAIN ; Start 06/01/16 at 16:30 Insulin Glargine (Lantus) 10 unit DAILY@08 SC Last administered on 06/06/16 09 :39; Admin Dose 10 UNIT; Start 06/02/16 at 08:00 Nitroglycerin 1 tab 1 tab Q5M PRN SL ANGINA; Start 06/02/16 at 17:30 Metronidazole (Flagyl 500 Mg (Pmx)) 100 ml @ 100 mls/hr Q8 IVPB Last administered on 06/06/16 05:37; Admin Dose 100 MLS/HR; Start 06/05/16 at 11:00 Amikacin Sulfate (Amikacin Iv Per Pharmacy) AMIKACIN PER PHARMACY NOTE XX ; Start 06/05/16 at 17:00 ANNAMARIE SANTANA Jun 06, 2016 13:28
--- NOTE | 2016-06-06 16:23 | PN ---
Date/Time of Note Date/Time of Note DATE: 06/06/16 TIME: 16:22 Assessment/Plan VTE Prophylaxis VTE Prophylaxis Intervention: other Lines/Catheters IV Catheter Type (from [facility]): Peripheral IV Assessment/Plan Chief Complaint/Hosp Course IMPRESSION: 1. Patient has pneumonia.better 2. Lung mass.better 3. Pulmonary edema.better 4. The patient has hypertension, diabetes mellitus, leukocytosis, , anemia, atherosclerotic heart disease, positive troponin. 5 sepsis 6 lexiscan neg 7 c diff plan hd per cardio pulmonary antibiotic per id flagyl Problems: Subjective 24 Hr Interval Summary Respiratory: no complaints Cardiovascular: no complaints Gastrointestinal: No diarrhea Exam/Review of Systems Vital Signs Vitals Vital Signs Date Time Temp Pulse Resp B/P Pulse Ox O2 Delivery O2 Flow Rate FiO2 06/06/16 13:36 2.0 06/06/16 13:36 85 20 97 Nasal Cannula 06/06/16 11:58 98.1 119/60 Intake and Output 06/05/16 06/05/16 06/06/16 15:00 23:00 07:00 Intake Total 100 ml 900 ml 120 ml Balance 100 ml 900 ml 120 ml Exam Neck: supple Respiratory: clear to auscultation Cardiovascular: regular rate and rhythm Gastrointestinal: soft Musculoskeletal: nl extremities to inspection Extremities: normal pulses Results Result Diagram: 06/06/1648 06/06/16 0648 Results 24 hrs Laboratory Tests Test 06/05/16 17:26 06/05/16 22:01 06/06/16 06:48 06/06/16 07:41 Bedside Glucose 281 H 236 H 151 Anion Gap 26 H Basophils # 0.0 Basophils % 0.2 Blood Urea Nitrogen 71 H Calcium Level 8.7 Carbon Dioxide Level 24 Chloride Level 92 L Creatinine 5.76 #H Eosinophils # 0.1 Eosinophils % 0.6 Glucose Level 148 # Hematocrit 36.2 L Hemoglobin 11.3 L Lymphocytes # 0.5 L Lymphocytes % 4.3 L Mean Corpuscular Hemoglobin 30.3 Mean Corpuscular Hemoglobin Concent 31.2 L Mean Corpuscular Volume 97.1 Mean Platelet Volume 11.6 #H Monocytes # 1.0 H Monocytes % 8.8 Neutrophils # 10.0 H Neutrophils % 84.3 H Nucleated Red Blood Cells # 0.0 Nucleated Red Blood Cells % 0.0 Platelet Count 308 Potassium Level 4.0 Red Blood Count 3.73 L Red Cell Distribution Width 14.9 H Sodium Level 138 White Blood Count 11.8 H Test 06/06/16 12:26 Bedside Glucose 178 Medications Medications Current Medications Amlodipine Besylate (Norvasc) 10 mg DAILY PO Last administered on 06/05/16 12: 40; Admin Dose 10 MG; Start 05/30/16 at 09:00 Latanoprost (Xalatan) 1 drop HS BOTH EYES Last administered on 06/05/16 21:55; Admin Dose 1 DROP; Start 05/29/16 at 21:00 Clonidine (Catapres) 0.1 mg TID PO Last administered on 06/05/16 21:55; Admin Dose 0.1 MG; Start 05/29/16 at 21:00 Fluoxetine HCl (Prozac) 20 mg DAILY PO Last administered on 06/06/16 09:37; Admin Dose 20 MG; Start 05/30/16 at 09:00 Gabapentin (Neurontin) 100 mg TID PO Last administered on 06/06/16 12:25; Admin Dose 100 MG; Start 05/29/16 at 21:00 Hydralazine HCl (Apresoline) 50 mg TID PO Last administered on 06/05/16 21:55; Admin Dose 50 MG; Start 05/29/16 at 21:00 Hydromorphone HCl (Dilaudid) 2 mg Q4H PRN PO PAIN; Start 05/29/16 at 18:00 Losartan Potassium (Cozaar) 50 mg DAILY PO Last administered on 06/05/16 12:39 ; Admin Dose 50 MG; Start 05/30/16 at 09:00 Methocarbamol (Robaxin) 500 mg DAILY PO Last administered on 06/06/16 09:37; Admin Dose 500 MG; Start 05/30/16 at 09:00 Acetaminophen (Tylenol Tab) 650 mg Q6H PRN PO PAIN LEVEL 1-3 OR FEVER Last administered on 06/06/16 09:37; Admin Dose 650 MG; Start 05/29/16 at 18:00 Docusate Sodium (Colace) 100 mg Q12H PRN PO CONSTIPATION; Start 05/29/16 at 18: 00 Magnesium Hydroxide (Milk Of Mag) 30 ml DAILY PRN PO CONSTIPATION; Start at 18:00 Bisacodyl (Dulcolax) 5 mg DAILY PRN PO CONSTIPATION; Start 05/29/16 at 18:00 Pantoprazole (Protonix Tab) 40 mg DAILY@06 PO Last administered on 06/06/16 05 :38; Admin Dose 40 MG; Start 05/30/16 at 06:00 Enoxaparin Sodium (Lovenox) 30 mg DAILY SC Last administered on 06/06/16 09:35 ; Admin Dose 30 MG; Start 05/30/16 at 09:00 Miscellaneous Information 1 ea NOTE XX ; Start 05/29/16 at 19:00 Glucose (Glutose) 15 gm Q15M PRN PO DECREASED GLUCOSE; Start 05/29/16 at 19:00 Glucose (Glutose) 22.5 gm Q15M PRN PO DECREASED GLUCOSE; Start 05/29/16 at 19:00 Dextrose (D50w Syringe) 25 ml Q15M PRN IV DECREASED GLUCOSE; Start 05/29/16 at 19:00 Dextrose (D50w Syringe) 50 ml Q15M PRN IV DECREASED GLUCOSE; Start 05/29/16 at 19:00 Glucagon (Glucagen) 1 mg Q15M PRN IM DECREASED GLUCOSE; Start 05/29/16 at 19:00 Glucose (Glutose) 15 gm Q15M PRN BUCCAL DECREASED GLUCOSE; Start 05/29/16 at 19: 00 Hydralazine HCl (Apresoline) 20 mg Q6H PRN IV sbp >170 Last administered on 05/30 09:21; Admin Dose 20 MG; Start 05/30/16 at 09:30 Acetaminophen (Tylenol Supp) 650 mg Q6H PRN [place] fever Last administered on 09:17; Admin Dose 650 MG; Start 05/30/16 at 10:30 Metoprolol Tartrate (Lopressor) 25 mg BID PO Last administered on 06/05/16 21: 56; Admin Dose 25 MG; Start 05/30/16 at 21:00 Aspirin 81 mg 81 mg DAILY PO Last administered on 06/06/16 09:37; Admin Dose 81 MG; Start 05/31/16 at 09:00 Ondansetron HCl/ Dextrose (Zofran Inj/D5W) 54 ml @ 108 mls/hr Q6H PRN IV NAUSEA AND/OR VOMITING; Start 05/30/16 at 19:00 Ondansetron HCl (Zofran Inj) 4 mg Q6H PRN IV NAUSEA AND/OR VOMITING Last administered on 06/05/16 09:12; Admin Dose 4 MG; Start 05/30/16 at 19:30 Nitroglycerin (Nitroglycerin 0.4 Mg/Hr) 1 patch DAILY PRN TRANSDERM CHEST PAIN ; Start 06/01/16 at 16:30 Insulin Glargine (Lantus) 10 unit DAILY@08 SC Last administered on 06/06/16 09 :39; Admin Dose 10 UNIT; Start 06/02/16 at 08:00 Nitroglycerin 1 tab 1 tab Q5M PRN SL ANGINA; Start 06/02/16 at 17:30 Metronidazole (Flagyl 500 Mg (Pmx)) 100 ml @ 100 mls/hr Q8 IVPB Last administered on 06/06/16 14:39; Admin Dose 100 MLS/HR; Start 06/05/16 at 11:00 Amikacin Sulfate (Amikacin Iv Per Pharmacy) AMIKACIN PER PHARMACY NOTE XX ; Start 06/05/16 at 17:00 MICHELLE MCDANIEL MD Jun 06, 2016 16:22
--- NOTE | 2016-06-06 16:57 | PN ---
DATE: 06/06/2016 SUBJECTIVE: No acute events overnight. The patient is lying comfortably in bed. She has less diar ilsa. Tolerates diet. No fevers. WBC 11.8 today, platelets . INDWELLINGS: Left upper extremity AV fistula. ANTIMICROBIALS: The patient is on: 1. Amikacin. 2. Vancomycin. 3. Flagyl. 4. Status post Zosyn. 5. Status post tobramycin. PHYSICAL EXAMINATION: GENERAL: This is a fragile, chronically ill-appearing, elderly woman who is in no distress. HEENT: Head atraumatic, normocephalic. Sclerae anicteric. Buccal mucosa dry. NECK: Supple, trachea midline. CHEST: Rise symmetrical. Breath sounds diminished to bases. HEART: S1, S2. ABDOMEN: Soft. Bowel sounds present. EXTREMITIES: No cyanosis. Left upper extremity AV fistula patent. ASSESSMENT: 1. Resolving sepsis with resolving leukocytosis. 2. Clostridium difficile colitis. 3. Resolving right upper lobe pneumonia. 4. End-stage renal disease, hemodialysis dependent. 5. Cardiomyopathy. 6. Diabetes. PLAN: The patient remains stable, overall improving. Continue present care. Follow recommendation s of consultants. Dictated By: PAULA CHANEL DOOR TO DOOR SELLING AGENT for [facility]/YAHIR Conf#: [id number] DID#: [id number]
[2016-06-06] MEDS: NITROGLYCERIN (SL) 0.4 MG TAB SL PRN ×2 (17:12→17:26)
[2016-06-06] MEDS ORDERED: CEPASTAT LOZENGE MT PRN (18:30)
[2016-06-06] MEDS: ALBUMIN HUMAN 25% 100 ML IV PRN (20:45)
[2016-06-06] MEDS: LATANOPROST 0.005% 2.5 ML OPH BOTH EYES SCH (23:33)
[2016-06-07] VITALS (12 sets, daily range): BP systolic 102–144; BP diastolic 55–68; PULSE 80–97; RESP 17–19
[2016-06-07] MEDS: HYDROmorphONE 2 MG TAB PO PRN ×3 (00:13→19:51)
[2016-06-07] MEDS: AMIKACIN 250 MG in SOD CHLORIDE 0.9% 100 ML IVPB SCH (00:13)
[2016-06-07] MEDS: ALBUTEROL/IPRATROPIUM (NEB) 3 ML AMP INH SCH ×4 (02:16→20:19)
[2016-06-07] MEDS: metroNIDAZOLE 500 MG/NS (PMX) 100 ML IVPB SCH ×3 (06:05→21:18)
[2016-06-07] MEDS: PANTOPRAZOLE (EC) 40 MG TAB PO SCH (06:05)
[2016-06-07] MEDS: LOSARTAN 50 MG TAB PO SCH (08:33)
[2016-06-07] MEDS: AMLODIPINE 10 MG TAB PO SCH (08:34)
[2016-06-07] MEDS: METOPROLOL 25 MG TAB PO SCH ×2 (08:34→19:52)
[2016-06-07] MEDS: ASPIRIN 81 MG TAB PO SCH ×2 (08:44→08:48)
[2016-06-07] MEDS: CALCIUM ACETATE 667 MG CAP PO SCH ×3 (08:48→17:23)
[2016-06-07] MEDS: SEVELAMER CARBONATE 0.8 GM PKT PO SCH ×3 (08:48→17:23)
[2016-06-07] MEDS: FLUOXETINE 20 MG CAP PO SCH (08:49)
[2016-06-07] MEDS: GABAPENTIN 100 MG CAP PO SCH ×3 (08:49→19:51)
[2016-06-07] MEDS: METHOCARBAMOL 500 MG TAB PO SCH (08:49)
[2016-06-07] MEDS: ENOXAPARIN 30 MG/0.3 ML SYG SC SCH (08:50)
[2016-06-07] MEDS: INSULIN ASPART [NOVOLOG] 3 ML PEN SC SCH ×4 (08:51→19:54)
[2016-06-07] MEDS: INSULIN GLARGINE [LANtus] 3 ML PEN SC SCH (08:52)
[2016-06-07] MEDS: ONDANSETRON 4 MG INJ IV PRN (10:37)
--- NOTE | 2016-06-07 10:42 | CONS ---
Date/Time of Note Date/Time of Note DATE: 06/07/16 TIME: 10:40 Assessment/Plan Assessment/Plan Chief Complaint/Hosp Course ID PROGRESS NOTE TOTAL ABX DAY # Vanco IV + Amikacin + Flagyl 24H INTERVAL SUMMARY * A/A/O O2 via NC, "no dolor" VSS, NAD PHYSICAL EXAMINATION: GENERAL: VSS, NAD HEENT: Unremarkable NECK: Trach midline CHEST: Rise symmetrical - without dyspnea on observation HEART: RRR ABDOMEN: Soft, EXTREMITIES: Warm, ID ASSESSMENT: 71 yo F w/PMHx 1. Resolving sepsis with resolving leukocytosis. 2. Clostridium difficile colitis. 3. Resolving right upper lobe pneumonia. 4. End-stage renal disease, hemodialysis dependent. 5. Cardiomyopathy. 6. Diabetes. (-)MRSA Nares INVASIVES: *PIV ABX ALLERGIES: KNDA CURRENT ABX: Vanco IV + Amikacin + Flagyl ID RECOMMENDATIONS: Continue current ABX for PNA + C.Diff - await clinical improvement . Problems: Consultation Date/Type/Reason Admit Date/Time May 29, 2016 at 14:54 Initial Consult Date Type of Consultation: ID Referring Provider: MICHELLE MCDANIEL MD Exam/Review of Systems Vital Signs Vitals Vital Signs Date Time Temp Pulse Resp B/P Pulse Ox O2 Delivery O2 Flow Rate FiO2 06/07/16 08:28 87 06/07/16 08:12 98.7 17 102/55 96 06/07/16 08:08 Nasal Cannula 2.0 Intake and Output 06/06/16 06/06/16 06/07/16 15:00 23:00 07:00 Intake Total 1350 ml 100 ml Output Total 2800 ml Balance -1450 ml 100 ml Results Result Diagram: 06/06/16 0648 06/06/16 0648 Results 24 hrs Laboratory Tests Test 06/06/16 12:26 06/06/16 17:14 06/06/16 22:08 06/07/16 07:37 Bedside Glucose 178 151 156 152 Medications Medications Current Medications Amlodipine Besylate (Norvasc) 10 mg DAILY PO Last administered on 06/05/16 12: 40; Admin Dose 10 MG; Start 05/30/16 at 09:00 Latanoprost (Xalatan) 1 drop HS BOTH EYES Last administered on 06/06/16 23:33 ; Admin Dose 1 DROP; Start 05/29/16 at 21:00 Clonidine (Catapres) 0.1 mg TID PO Last administered on 06/06/16 23:21; Admin Dose 0.1 MG; Start 05/29/16 at 21:00 Fluoxetine HCl (Prozac) 20 mg DAILY PO Last administered on 06/07/16 08:49; Admin Dose 20 MG; Start 05/30/16 at 09:00 Gabapentin (Neurontin) 100 mg TID PO Last administered on 06/07/16 08:49; Admin Dose 100 MG; Start 05/29/16 at 21:00 Hydralazine HCl (Apresoline) 50 mg TID PO Last administered on 06/05/16 21:55; Admin Dose 50 MG; Start 05/29/16 at 21:00 Hydromorphone HCl (Dilaudid) 2 mg Q4H PRN PO PAIN Last administered on 06:05; Admin Dose 2 MG; Start 05/29/16 at 18:00 Losartan Potassium (Cozaar) 50 mg DAILY PO Last administered on 06/05/16 12:39 ; Admin Dose 50 MG; Start 05/30/16 at 09:00 Methocarbamol (Robaxin) 500 mg DAILY PO Last administered on 06/07/16 08:49; Admin Dose 500 MG; Start 05/30/16 at 09:00 Acetaminophen (Tylenol Tab) 650 mg Q6H PRN PO PAIN LEVEL 1-3 OR FEVER Last administered on 06/06/16 23:21; Admin Dose 650 MG; Start 05/29/16 at 18:00 Docusate Sodium (Colace) 100 mg Q12H PRN PO CONSTIPATION; Start 05/29/16 at 18: 00 Magnesium Hydroxide (Milk Of Mag) 30 ml DAILY PRN PO CONSTIPATION; Start at 18:00 Bisacodyl (Dulcolax) 5 mg DAILY PRN PO CONSTIPATION; Start 05/29/16 at 18:00 Pantoprazole (Protonix Tab) 40 mg DAILY@06 PO Last administered on 06/07/16 06 :05; Admin Dose 40 MG; Start 05/30/16 at 06:00 Enoxaparin Sodium (Lovenox) 30 mg DAILY SC Last administered on 06/07/16 08:50 ; Admin Dose 30 MG; Start 05/30/16 at 09:00 Miscellaneous Information 1 ea NOTE XX ; Start 05/29/16 at 19:00 Glucose (Glutose) 15 gm Q15M PRN PO DECREASED GLUCOSE; Start 05/29/16 at 19:00 Glucose (Glutose) 22.5 gm Q15M PRN PO DECREASED GLUCOSE; Start 05/29/16 at 19:00 Dextrose (D50w Syringe) 25 ml Q15M PRN IV DECREASED GLUCOSE; Start 05/29/16 at 19:00 Dextrose (D50w Syringe) 50 ml Q15M PRN IV DECREASED GLUCOSE; Start 05/29/16 at 19:00 Glucagon (Glucagen) 1 mg Q15M PRN IM DECREASED GLUCOSE; Start 05/29/16 at 19:00 Glucose (Glutose) 15 gm Q15M PRN BUCCAL DECREASED GLUCOSE; Start 05/29/16 at 19: 00 Hydralazine HCl (Apresoline) 20 mg Q6H PRN IV sbp >170 Last administered on 05/30 09:21; Admin Dose 20 MG; Start 05/30/16 at 09:30 Acetaminophen (Tylenol Supp) 650 mg Q6H PRN [place] fever Last administered on 09:17; Admin Dose 650 MG; Start 05/30/16 at 10:30 Metoprolol Tartrate (Lopressor) 25 mg BID PO Last administered on 06/05/16 21: 56; Admin Dose 25 MG; Start 05/30/16 at 21:00 Aspirin 81 mg 81 mg DAILY PO Last administered on 06/07/16 08:48; Admin Dose 81 MG; Start 05/31/16 at 09:00 Ondansetron HCl/ Dextrose (Zofran Inj/D5W) 54 ml @ 108 mls/hr Q6H PRN IV NAUSEA AND/OR VOMITING; Start 05/30/16 at 19:00 Ondansetron HCl (Zofran Inj) 4 mg Q6H PRN IV NAUSEA AND/OR VOMITING Last administered on 06/05/16 09:12; Admin Dose 4 MG; Start 05/30/16 at 19:30 Nitroglycerin (Nitroglycerin 0.4 Mg/Hr) 1 patch DAILY PRN TRANSDERM CHEST PAIN ; Start 06/01/16 at 16:30 Insulin Glargine (Lantus) 10 unit DAILY@08 SC Last administered on 06/07/16 08 :52; Admin Dose 10 UNIT; Start 06/02/16 at 08:00 Nitroglycerin 1 tab 1 tab Q5M PRN SL ANGINA Last administered on 06/06/16 17: 26; Admin Dose 1 TAB; Start 06/02/16 at 17:30 Metronidazole (Flagyl 500 Mg (Pmx)) 100 ml @ 100 mls/hr Q8 IVPB Last administered on 06/07/16 06:05; Admin Dose 100 MLS/HR; Start 06/05/16 at 11:00 Amikacin Sulfate (Amikacin Iv Per Pharmacy) AMIKACIN PER PHARMACY NOTE XX ; Start 06/05/16 at 17:00 Phenol (Cepastat Lozenge) 1 lozenge Q4H PRN [place] sore throat Last administered on 06/06/16 23:33; Admin Dose 1 LOZENGE; Start 06/06/16 at 18:30 ASHKAN JAMES NP Jun 07, 2016 10:41
[2016-06-07] MEDS: METOCLOPRAMIDE 10 MG TAB PO PRN ×2 (11:56→19:51)
--- NOTE | 2016-06-07 15:27 | CONS ---
Date/Time of Note Date/Time of Note DATE: 06/07/16 TIME: 15:25 Assessment/Plan Assessment/Plan Chief Complaint/Hosp Course IMPRESSION: 1. Positive troponin, assess significance. No sig uptrend and lexiscan this admit negative for ischemia 2. Shortness of breath, assess for congestive heart failure. 3. Abnormal electrocardiogram. Assess for acute coronary syndrome. 4. Pneumonia by chest x-ray and chest CT. 5. Chest mass and hilar lymphadenopathy.-by CT posssibly only infiltrate and not mass 6. End-stage renal disease on hemodialysis. 7. Leukocytosis. 8. Anemia. 9. Cardiomyopathy-LVEF 45% by echo Recc: -Tele -Continue abx;'s and f/u cx data -Continue asa -Continue norvasc/clonidine/BB/losartan/hydralazine and follow BP closely -PRN SL NTG for recurrent chest pain -HD for volume removal Problems: Consultation Date/Type/Reason Admit Date/Time May 29, 2016 at 14:54 Initial Consult Date 05/30/2016 Type of Consultation: Cardiology Reason for Consultation positive troponin Referring Provider: MICHELLE MCDANIEL MD Exam/Review of Systems Vital Signs Vitals Vital Signs Date Time Temp Pulse Resp B/P Pulse Ox O2 Delivery O2 Flow Rate FiO2 06/07/16 13:22 99 2.0 06/07/16 13:22 82 18 Nasal Cannula 06/07/16 12:11 98.4 108/56 Intake and Output 06/06/16 06/06/16 06/07/16 15:00 23:00 07:00 Intake Total 1350 ml 100 ml Output Total 2800 ml Balance -1450 ml 100 ml Exam Review of Systems: CONSTITUTIONAL: No fevers, chills. PULMONARY: No sob CARDIOVASCULAR: No chest pain/palpitations GASTROINTESTINAL: No nausea/vomiting. GENITOURINARY: No hematuria/dysuria. MUSCULOSKELETAL: No myagias/arthalgias. PSYCHIATRIC: The patient denies depression. NEUROLOGIC: lethargic Constitutional: other (sleeping) Psych: no complaints Head: normocephalic ENMT: mucosa pink and moist Neck: jvd (9 cm water), supple Respiratory: diminished breath sounds (at bases/B) Cardiovascular: regular rate and rhythm Gastrointestinal: non-tender, soft Musculoskeletal: muscle tone (normal) Extremities: edema (none) Neurological: lethargic Results Result Diagram: 06/06/16 0648 06/06/16 0648 Results 24 hrs Laboratory Tests Test 06/06/16 17:14 06/06/16 22:08 06/07/16 07:37 06/07/16 11:57 Bedside Glucose 151 156 152 170 Medications Medications Current Medications Amlodipine Besylate (Norvasc) 10 mg DAILY PO Last administered on 06/05/16 12: 40; Admin Dose 10 MG; Start 05/30/16 at 09:00 Latanoprost (Xalatan) 1 drop HS BOTH EYES Last administered on 06/06/16 23:33 ; Admin Dose 1 DROP; Start 05/29/16 at 21:00 Clonidine (Catapres) 0.1 mg TID PO Last administered on 06/06/16 23:21; Admin Dose 0.1 MG; Start 05/29/16 at 21:00 Fluoxetine HCl (Prozac) 20 mg DAILY PO Last administered on 06/07/16 08:49; Admin Dose 20 MG; Start 05/30/16 at 09:00 Gabapentin (Neurontin) 100 mg TID PO Last administered on 06/07/16 13:40; Admin Dose 100 MG; Start 05/29/16 at 21:00 Hydralazine HCl (Apresoline) 50 mg TID PO Last administered on 06/05/16 21:55; Admin Dose 50 MG; Start 05/29/16 at 21:00 Hydromorphone HCl (Dilaudid) 2 mg Q4H PRN PO PAIN Last administered on 06:05; Admin Dose 2 MG; Start 05/29/16 at 18:00 Losartan Potassium (Cozaar) 50 mg DAILY PO Last administered on 06/05/16 12:39 ; Admin Dose 50 MG; Start 05/30/16 at 09:00 Methocarbamol (Robaxin) 500 mg DAILY PO Last administered on 06/07/16 08:49; Admin Dose 500 MG; Start 05/30/16 at 09:00 Acetaminophen (Tylenol Tab) 650 mg Q6H PRN PO PAIN LEVEL 1-3 OR FEVER Last administered on 06/06/16 23:21; Admin Dose 650 MG; Start 05/29/16 at 18:00 Docusate Sodium (Colace) 100 mg Q12H PRN PO CONSTIPATION; Start 05/29/16 at 18: 00 Magnesium Hydroxide (Milk Of Mag) 30 ml DAILY PRN PO CONSTIPATION; Start at 18:00 Bisacodyl (Dulcolax) 5 mg DAILY PRN PO CONSTIPATION; Start 05/29/16 at 18:00 Pantoprazole (Protonix Tab) 40 mg DAILY@06 PO Last administered on 06/07/16 06 :05; Admin Dose 40 MG; Start 05/30/16 at 06:00 Enoxaparin Sodium (Lovenox) 30 mg DAILY SC Last administered on 06/07/16 08:50 ; Admin Dose 30 MG; Start 05/30/16 at 09:00 Miscellaneous Information 1 ea NOTE XX ; Start 05/29/16 at 19:00 Glucose (Glutose) 15 gm Q15M PRN PO DECREASED GLUCOSE; Start 05/29/16 at 19:00 Glucose (Glutose) 22.5 gm Q15M PRN PO DECREASED GLUCOSE; Start 05/29/16 at 19:00 Dextrose (D50w Syringe) 25 ml Q15M PRN IV DECREASED GLUCOSE; Start 05/29/16 at 19:00 Dextrose (D50w Syringe) 50 ml Q15M PRN IV DECREASED GLUCOSE; Start 05/29/16 at 19:00 Glucagon (Glucagen) 1 mg Q15M PRN IM DECREASED GLUCOSE; Start 05/29/16 at 19:00 Glucose (Glutose) 15 gm Q15M PRN BUCCAL DECREASED GLUCOSE; Start 05/29/16 at 19: 00 Hydralazine HCl (Apresoline) 20 mg Q6H PRN IV sbp >170 Last administered on 05/30 09:21; Admin Dose 20 MG; Start 05/30/16 at 09:30 Acetaminophen (Tylenol Supp) 650 mg Q6H PRN [place] fever Last administered on 09:17; Admin Dose 650 MG; Start 05/30/16 at 10:30 Metoprolol Tartrate (Lopressor) 25 mg BID PO Last administered on 06/05/16 21: 56; Admin Dose 25 MG; Start 05/30/16 at 21:00 Aspirin 81 mg 81 mg DAILY PO Last administered on 06/07/16 08:48; Admin Dose 81 MG; Start 05/31/16 at 09:00 Ondansetron HCl/ Dextrose (Zofran Inj/D5W) 54 ml @ 108 mls/hr Q6H PRN IV NAUSEA AND/OR VOMITING; Start 05/30/16 at 19:00 Ondansetron HCl (Zofran Inj) 4 mg Q6H PRN IV NAUSEA AND/OR VOMITING Last administered on 06/07/16 10:37; Admin Dose 4 MG; Start 05/30/16 at 19:30 Nitroglycerin (Nitroglycerin 0.4 Mg/Hr) 1 patch DAILY PRN TRANSDERM CHEST PAIN ; Start 06/01/16 at 16:30 Insulin Glargine (Lantus) 10 unit DAILY@08 SC Last administered on 06/07/16 08 :52; Admin Dose 10 UNIT; Start 06/02/16 at 08:00 Nitroglycerin 1 tab 1 tab Q5M PRN SL ANGINA Last administered on 06/06/16 17: 26; Admin Dose 1 TAB; Start 06/02/16 at 17:30 Metronidazole (Flagyl 500 Mg (Pmx)) 100 ml @ 100 mls/hr Q8 IVPB Last administered on 06/07/16 13:40; Admin Dose 100 MLS/HR; Start 06/05/16 at 11:00 Amikacin Sulfate (Amikacin Iv Per Pharmacy) AMIKACIN PER PHARMACY NOTE XX ; Start 06/05/16 at 17:00 Phenol (Cepastat Lozenge) 1 lozenge Q4H PRN [place] sore throat Last administered on 06/06/16 23:33; Admin Dose 1 LOZENGE; Start 06/06/16 at 18:30 ANNAMARIE SANTANA Jun 07, 2016 15:27
--- NOTE | 2016-06-07 18:08 | CONS ---
Date/Time of Note Date/Time of Note DATE: 06/07/16 TIME: 18:06 Consult Date/Type/Reason Admit Date/Time May 29, 2016 at 14:54 Initial Consult Date Type of Consultation: pulm Ordering Provider: MICHELLE MCDANIEL MD Subjective CT images reviewed. Notable improvement of RUL airspace disease noted. Objective Vital Signs Date Time Temp Pulse Resp B/P Pulse Ox O2 Delivery O2 Flow Rate FiO2 06/07/16 16:21 82 06/07/16 16: 98.2 19 144/66 100 06/07/16 13:22 2.0 06/07/16 13:22 Nasal Cannula Intake and Output 06/06/16 06/06/16 06/07/16 15:00 23:00 07:00 Intake Total 1350 ml 100 ml Output Total 2800 ml Balance -1450 ml 100 ml HEENT: Neck supple; no JVD; no LAD CVS: RRR, S1 and S2 CHEST: Clear ABD: Soft, NT, + BS EXT: No c/c/e Results/Medications Result Diagram: 06/06/16 0648 06/06/16 0648 Results 24 hrs Laboratory Tests Test 06/06/16 22:08 06/07/16 07:37 06/07/16 11:57 06/07/16 17:16 Bedside Glucose 156 152 170 186 Medications Current Medications Amlodipine Besylate (Norvasc) 10 mg DAILY PO Last administered on 06/05/16 12: 40; Admin Dose 10 MG; Start 05/30/16 at 09:00 Latanoprost (Xalatan) 1 drop HS BOTH EYES Last administered on 06/06/16 23:33 ; Admin Dose 1 DROP; Start 05/29/16 at 21:00 Clonidine (Catapres) 0.1 mg TID PO Last administered on 06/06/16 23:21; Admin Dose 0.1 MG; Start 05/29/16 at 21:00 Fluoxetine HCl (Prozac) 20 mg DAILY PO Last administered on 06/07/16 08:49; Admin Dose 20 MG; Start 05/30/16 at 09:00 Gabapentin (Neurontin) 100 mg TID PO Last administered on 06/07/16 13:40; Admin Dose 100 MG; Start 05/29/16 at 21:00 Hydralazine HCl (Apresoline) 50 mg TID PO Last administered on 06/05/16 21:55; Admin Dose 50 MG; Start 05/29/16 at 21:00 Hydromorphone HCl (Dilaudid) 2 mg Q4H PRN PO PAIN Last administered on 06:05; Admin Dose 2 MG; Start 05/29/16 at 18:00 Losartan Potassium (Cozaar) 50 mg DAILY PO Last administered on 06/05/16 12:39 ; Admin Dose 50 MG; Start 05/30/16 at 09:00 Methocarbamol (Robaxin) 500 mg DAILY PO Last administered on 06/07/16 08:49; Admin Dose 500 MG; Start 05/30/16 at 09:00 Acetaminophen (Tylenol Tab) 650 mg Q6H PRN PO PAIN LEVEL 1-3 OR FEVER Last administered on 06/06/16 23:21; Admin Dose 650 MG; Start 05/29/16 at 18:00 Docusate Sodium (Colace) 100 mg Q12H PRN PO CONSTIPATION; Start 05/29/16 at 18: 00 Magnesium Hydroxide (Milk Of Mag) 30 ml DAILY PRN PO CONSTIPATION; Start at 18:00 Bisacodyl (Dulcolax) 5 mg DAILY PRN PO CONSTIPATION; Start 05/29/16 at 18:00 Pantoprazole (Protonix Tab) 40 mg DAILY@06 PO Last administered on 06/07/16 06 :05; Admin Dose 40 MG; Start 05/30/16 at 06:00 Enoxaparin Sodium (Lovenox) 30 mg DAILY SC Last administered on 06/07/16 08:50 ; Admin Dose 30 MG; Start 05/30/16 at 09:00 Miscellaneous Information 1 ea NOTE XX ; Start 05/29/16 at 19:00 Glucose (Glutose) 15 gm Q15M PRN PO DECREASED GLUCOSE; Start 05/29/16 at 19:00 Glucose (Glutose) 22.5 gm Q15M PRN PO DECREASED GLUCOSE; Start 05/29/16 at 19:00 Dextrose (D50w Syringe) 25 ml Q15M PRN IV DECREASED GLUCOSE; Start 05/29/16 at 19:00 Dextrose (D50w Syringe) 50 ml Q15M PRN IV DECREASED GLUCOSE; Start 05/29/16 at 19:00 Glucagon (Glucagen) 1 mg Q15M PRN IM DECREASED GLUCOSE; Start 05/29/16 at 19:00 Glucose (Glutose) 15 gm Q15M PRN BUCCAL DECREASED GLUCOSE; Start 05/29/16 at 19: 00 Hydralazine HCl (Apresoline) 20 mg Q6H PRN IV sbp >170 Last administered on 05/30 09:21; Admin Dose 20 MG; Start 05/30/16 at 09:30 Acetaminophen (Tylenol Supp) 650 mg Q6H PRN [place] fever Last administered on 09:17; Admin Dose 650 MG; Start 05/30/16 at 10:30 Metoprolol Tartrate (Lopressor) 25 mg BID PO Last administered on 06/05/16 21: 56; Admin Dose 25 MG; Start 05/30/16 at 21:00 Aspirin 81 mg 81 mg DAILY PO Last administered on 06/07/16 08:48; Admin Dose 81 MG; Start 05/31/16 at 09:00 Ondansetron HCl/ Dextrose (Zofran Inj/D5W) 54 ml @ 108 mls/hr Q6H PRN IV NAUSEA AND/OR VOMITING; Start 05/30/16 at 19:00 Ondansetron HCl (Zofran Inj) 4 mg Q6H PRN IV NAUSEA AND/OR VOMITING Last administered on 06/07/16 10:37; Admin Dose 4 MG; Start 05/30/16 at 19:30 Nitroglycerin (Nitroglycerin 0.4 Mg/Hr) 1 patch DAILY PRN TRANSDERM CHEST PAIN ; Start 06/01/16 at 16:30 Insulin Glargine (Lantus) 10 unit DAILY@08 SC Last administered on 06/07/16 08 :52; Admin Dose 10 UNIT; Start 06/02/16 at 08:00 Nitroglycerin 1 tab 1 tab Q5M PRN SL ANGINA Last administered on 06/06/16 17: 26; Admin Dose 1 TAB; Start 06/02/16 at 17:30 Metronidazole (Flagyl 500 Mg (Pmx)) 100 ml @ 100 mls/hr Q8 IVPB Last administered on 06/07/16 13:40; Admin Dose 100 MLS/HR; Start 06/05/16 at 11:00 Amikacin Sulfate (Amikacin Iv Per Pharmacy) AMIKACIN PER PHARMACY NOTE XX ; Start 06/05/16 at 17:00 Phenol (Cepastat Lozenge) 1 lozenge Q4H PRN MT sore throat Last administered on 06/06/16t 23:33; Admin Dose 1 LOZENGE; Start 06/06/16 at 18:30 Assessment/Plan Additional Assessment/Plan IMP: 1. RUL infiltrate--possibly aspiration 2. Esophageal dilation RECS: 1. Aspiration precautions 2. Abx per ID PATRICIA RODRIGUEZ MD Jun 07, 2016 18:07
--- NOTE | 2016-06-07 19:50 | PN ---
Date/Time of Note Date/Time of Note DATE: 06/07/16 TIME: 19:46 Assessment/Plan VTE Prophylaxis VTE Prophylaxis Intervention: other Assessment/Plan Problems: (1) Congestive heart failure Status: Chronic Qualifiers: Congestive heart failure type: systolic (2) Shortness of breath Status: Acute (3) Hypertensive emergency Status: Acute (4) Hyperkalemia Status: Acute (5) Lung mass Status: Acute (6) Diabetic gastroparesis Status: Chronic (7) ESRD (end stage renal disease) Status: Chronic Assessment/Plan [id number] hd plan cont direct care specialist f/u Subjective 24 Hr Interval Summary Respiratory: shortness of breath Cardiovascular: no complaints Exam/Review of Systems Vital Signs Vitals Vital Signs Date Time Temp Pulse Resp B/P Pulse Ox O2 Delivery O2 Flow Rate FiO2 06/07/16 16:21 82 06/07/16 16:17 98.2 19 144/66 100 06/07/16 13:22 2.0 06/07/16 13:22 Nasal Cannula Intake and Output 06/06/16 06/06/16 06/07/16 15:00 23:00 07:00 Intake Total 1350 ml 100 ml Output Total 2800 ml Balance -1450 ml 100 ml Exam Constitutional: frail Head: normocephalic ENMT: nl external ears & nose Neck: supple Respiratory: diminished breath sounds Cardiovascular: regular rate and rhythm Gastrointestinal: soft Extremities: normal pulses Skin: rash or lesions Results Result Diagram: 06/06/16 0648 06/06/16 0648 Results 24 hrs Laboratory Tests Test 06/06/16 22:08 06/07/16 07:37 06/07/16 11:57 06/07/16 17:16 Bedside Glucose 156 152 170 186 Test 06/07/16 19:19 Bedside Glucose 158 Medications Medications Current Medications Amlodipine Besylate (Norvasc) 10 mg DAILY PO Last administered on 06/05/16 12: 40; Admin Dose 10 MG; Start 05/30/16 at 09:00 Latanoprost (Xalatan) 1 drop HS BOTH EYES Last administered on 06/06/16 23:33 ; Admin Dose 1 DROP; Start 05/29/16 at 21:00 Clonidine (Catapres) 0.1 mg TID PO Last administered on 06/06/16 23:21; Admin Dose 0.1 MG; Start 05/29/16 at 21:00 Fluoxetine HCl (Prozac) 20 mg DAILY PO Last administered on 06/07/16 08:49; Admin Dose 20 MG; Start 05/30/16 at 09:00 Gabapentin (Neurontin) 100 mg TID PO Last administered on 06/07/16 13:40; Admin Dose 100 MG; Start 05/29/16 at 21:00 Hydralazine HCl (Apresoline) 50 mg TID PO Last administered on 06/05/16 21:55; Admin Dose 50 MG; Start 05/29/16 at 21:00 Hydromorphone HCl (Dilaudid) 2 mg Q4H PRN PO PAIN Last administered on 06:05; Admin Dose 2 MG; Start 05/29/16 at 18:00 Losartan Potassium (Cozaar) 50 mg DAILY PO Last administered on 06/05/16 12:39 ; Admin Dose 50 MG; Start 05/30/16 at 09:00 Methocarbamol (Robaxin) 500 mg DAILY PO Last administered on 06/07/16 08:49; Admin Dose 500 MG; Start 05/30/16 at 09:00 Acetaminophen (Tylenol Tab) 650 mg Q6H PRN PO PAIN LEVEL 1-3 OR FEVER Last administered on 06/06/16 23:21; Admin Dose 650 MG; Start 05/29/16 at 18:00 Docusate Sodium (Colace) 100 mg Q12H PRN PO CONSTIPATION; Start 05/29/16 at 18: 00 Magnesium Hydroxide (Milk Of Mag) 30 ml DAILY PRN PO CONSTIPATION; Start at 18:00 Bisacodyl (Dulcolax) 5 mg DAILY PRN PO CONSTIPATION; Start 05/29/16 at 18:00 Pantoprazole (Protonix Tab) 40 mg DAILY@06 PO Last administered on 06/07/16 06 :05; Admin Dose 40 MG; Start 05/30/16 at 06:00 Enoxaparin Sodium (Lovenox) 30 mg DAILY SC Last administered on 06/07/16 08:50 ; Admin Dose 30 MG; Start 05/30/16 at 09:00 Miscellaneous Information 1 ea NOTE XX ; Start 05/29/16 at 19:00 Glucose (Glutose) 15 gm Q15M PRN PO DECREASED GLUCOSE; Start 05/29/16 at 19:00 Glucose (Glutose) 22.5 gm Q15M PRN PO DECREASED GLUCOSE; Start 05/29/16 at 19:00 Dextrose (D50w Syringe) 25 ml Q15M PRN IV DECREASED GLUCOSE; Start 05/29/16 at 19:00 Dextrose (D50w Syringe) 50 ml Q15M PRN IV DECREASED GLUCOSE; Start 05/29/16 at 19:00 Glucagon (Glucagen) 1 mg Q15M PRN IM DECREASED GLUCOSE; Start 05/29/16 at 19:00 Glucose (Glutose) 15 gm Q15M PRN BUCCAL DECREASED GLUCOSE; Start 05/29/16 at 19: 00 Hydralazine HCl (Apresoline) 20 mg Q6H PRN IV sbp >170 Last administered on 05/30 09:21; Admin Dose 20 MG; Start 05/30/16 at 09:30 Acetaminophen (Tylenol Supp) 650 mg Q6H PRN [place] fever Last administered on 09:17; Admin Dose 650 MG; Start 05/30/16 at 10:30 Metoprolol Tartrate (Lopressor) 25 mg BID PO Last administered on 06/05/16 21: 56; Admin Dose 25 MG; Start 05/30/16 at 21:00 Aspirin 81 mg 81 mg DAILY PO Last administered on 06/07/16 08:48; Admin Dose 81 MG; Start 05/31/16 at 09:00 Ondansetron HCl/ Dextrose (Zofran Inj/D5W) 54 ml @ 108 mls/hr Q6H PRN IV NAUSEA AND/OR VOMITING; Start 05/30/16 at 19:00 Ondansetron HCl (Zofran Inj) 4 mg Q6H PRN IV NAUSEA AND/OR VOMITING Last administered on 06/07/16 10:37; Admin Dose 4 MG; Start 05/30/16 at 19:30 Nitroglycerin (Nitroglycerin 0.4 Mg/Hr) 1 patch DAILY PRN TRANSDERM CHEST PAIN ; Start 06/01/16 at 16:30 Insulin Glargine (Lantus) 10 unit DAILY@08 SC Last administered on 06/07/16 08 :52; Admin Dose 10 UNIT; Start 06/02/16 at 08:00 Nitroglycerin 1 tab 1 tab Q5M PRN SL ANGINA Last administered on 06/06/16 17: 26; Admin Dose 1 TAB; Start 06/02/16 at 17:30 Metronidazole (Flagyl 500 Mg (Pmx)) 100 ml @ 100 mls/hr Q8 IVPB Last administered on 06/07/16 13:40; Admin Dose 100 MLS/HR; Start 06/05/16 at 11:00 Amikacin Sulfate (Amikacin Iv Per Pharmacy) AMIKACIN PER PHARMACY NOTE XX ; Start 06/05/16 at 17:00 Phenol (Cepastat Lozenge) 1 lozenge Q4H PRN [place] sore throat Last administered on 06/06/16 23:33; Admin Dose 1 LOZENGE; Start 06/06/16 at 18:30 SEAN PLAZA MD Jun 07, 2016 19:49
[2016-06-07] MEDS: LATANOPROST 0.005% 2.5 ML OPH BOTH EYES SCH (19:54)
[2016-06-08] VITALS (13 sets, daily range): BP systolic 92–107; BP diastolic 50–55; PULSE 74–84; RESP 15–20
[2016-06-08] MEDS: ALBUTEROL/IPRATROPIUM (NEB) 3 ML AMP INH SCH ×4 (02:28→19:54)
[2016-06-08] MEDS: PANTOPRAZOLE (EC) 40 MG TAB PO SCH (05:20)
[2016-06-08] MEDS: metroNIDAZOLE 500 MG/NS (PMX) 100 ML IVPB SCH ×3 (05:20→20:11)
[2016-06-08] MEDS: INSULIN ASPART [NOVOLOG] 3 ML PEN SC SCH ×4 (08:00→20:11)
[2016-06-08] MEDS: CALCIUM ACETATE 667 MG CAP PO SCH ×3 (08:31→17:19)
[2016-06-08] MEDS: METHOCARBAMOL 500 MG TAB PO SCH (08:31)
[2016-06-08] MEDS: SEVELAMER CARBONATE 0.8 GM PKT PO SCH ×4 (08:31→17:27)
[2016-06-08] MEDS: FLUOXETINE 20 MG CAP PO SCH (08:31)
[2016-06-08] MEDS: GABAPENTIN 100 MG CAP PO SCH ×3 (08:31→20:10)
[2016-06-08] MEDS: AMLODIPINE 10 MG TAB PO SCH (08:31)
[2016-06-08] MEDS: ASPIRIN 81 MG TAB PO SCH (08:31)
[2016-06-08] MEDS: ACETAMINOPHEN 325 MG TAB PO PRN (08:33)
[2016-06-08] MEDS: METOPROLOL 25 MG TAB PO SCH ×2 (08:34→20:10)
[2016-06-08] MEDS: ENOXAPARIN 30 MG/0.3 ML SYG SC SCH (08:37)
[2016-06-08 08:40] LABS: ALBUMIN 3.8 g/dl (3.3-4.9); POTASSIUM 4.6 mmol/L (3.5-5.1)
[2016-06-08 08:43] LABS: ALBUMIN/GLOBULIN RATIO 1.22; CREATININE 6.39 mg/dl (0.44-1.00); TOTAL PROTEIN 6.9 g/dl (6.1-8.1)
[2016-06-08 08:44] LABS: CALCIUM 8.7 mg/dl (8.4-10.2)
[2016-06-08] MEDS: LOSARTAN 50 MG TAB PO SCH (09:00)
[2016-06-08] MEDS: INSULIN GLARGINE [LANtus] 3 ML PEN SC SCH (09:48)
--- NOTE | 2016-06-08 13:53 | CONS ---
Date/Time of Note Date/Time of Note DATE: 06/08/16 TIME: 13:52 Assessment/Plan Assessment/Plan Chief Complaint/Hosp Course ID PROGRESS NOTE TOTAL ABX DAY # Vanco IV + Amikacin + Flagyl 24H INTERVAL SUMMARY * Resting comfortably, s/p HD yesterday * A/A/O O2 via NC, no dyspnea, "no dolor" VSS, NAD * WBC down today PHYSICAL EXAMINATION: GENERAL: VSS, NAD HEENT: Unremarkable NECK: Trach midline CHEST: Rise symmetrical - without dyspnea on observation HEART: RRR ABDOMEN: Soft, EXTREMITIES: Warm, ID ASSESSMENT: 71 yo F w/PMHx 1. Resolving sepsis with resolving leukocytosis. 2. Clostridium difficile colitis. 3. Resolving right upper lobe pneumonia. 4. End-stage renal disease, hemodialysis dependent. 5. Cardiomyopathy. 6. Diabetes. (-)MRSA Nares INVASIVES: *PIV ABX ALLERGIES: KNDA CURRENT ABX: Vanco IV + Amikacin + Flagyl ID RECOMMENDATIONS: Continue current ABX for PNA + C.Diff - await clinical improvement . Problems: Consultation Date/Type/Reason Admit Date/Time May 29, 2016 at 14:54 Type of Consultation: ID Referring Provider: MICHELLE MCDANIEL MD Exam/Review of Systems Vital Signs Vitals Vital Signs Date Time Temp Pulse Resp B/P Pulse Ox O2 Delivery O2 Flow Rate FiO2 06/08/16 13:02 89 18 96 Nasal Cannula 2.0 06/08/16 11:42 98.9 92/54 06/08/16 02:30 28 Intake and Output 06/07/16 06/07/16 06/08/16 15:00 23:00 07:00 Intake Total 100 ml 300 ml Balance 100 ml 300 ml Results Result Diagram: 06/06/16 0648 06/08/16 0707 Results 24 hrs Laboratory Tests Test 06/07/16 17:16 06/07/16 19:19 06/08/16 07:07 06/08/16 08:05 Bedside Glucose 186 158 85 Alanine Aminotransferase (ALT/SGPT) 26 Albumin 3.8 Albumin/Globulin Ratio 1.22 Alkaline Phosphatase 103 Anion Gap 27 H Aspartate Amino Transf (AST/SGOT) 52 H Blood Urea Nitrogen 78 H Calcium Level 8.7 Carbon Dioxide Level 20 L Chloride Level 95 L Creatinine 6.39 H Direct Bilirubin 0.00 Globulin 3.10 Glucose Level 83 Indirect Bilirubin 0.0 Potassium Level 4.6 Sodium Level 137 Total Bilirubin 0.0 L Total Protein 6.9 Test 06/08/16 12:18 Bedside Glucose 198 Medications Medications Current Medications Amlodipine Besylate (Norvasc) 10 mg DAILY PO Last administered on 06/08/16 08: 31; Admin Dose 10 MG; Start 05/30/16 at 09:00 Latanoprost (Xalatan) 1 drop HS BOTH EYES Last administered on 06/07/16 19:54 ; Admin Dose 1 DROP; Start 05/29/16 at 21:00 Clonidine (Catapres) 0.1 mg TID PO Last administered on 06/06/16 23:21; Admin Dose 0.1 MG; Start 05/29/16 at 21:00 Fluoxetine HCl (Prozac) 20 mg DAILY PO Last administered on 06/08/16 08:31; Admin Dose 20 MG; Start 05/30/16 at 09:00 Gabapentin (Neurontin) 100 mg TID PO Last administered on 06/08/16 12:30; Admin Dose 100 MG; Start 05/29/16 at 21:00 Hydralazine HCl (Apresoline) 50 mg TID PO Last administered on 06/05/16 21:55; Admin Dose 50 MG; Start 05/29/16 at 21:00 Hydromorphone HCl (Dilaudid) 2 mg Q4H PRN PO PAIN Last administered on 19:51; Admin Dose 2 MG; Start 05/29/16 at 18:00 Losartan Potassium (Cozaar) 50 mg DAILY PO Last administered on 06/05/16 12:39 ; Admin Dose 50 MG; Start 05/30/16 at 09:00 Methocarbamol (Robaxin) 500 mg DAILY PO Last administered on 06/08/16 08:31; Admin Dose 500 MG; Start 05/30/16 at 09:00 Acetaminophen (Tylenol Tab) 650 mg Q6H PRN PO PAIN LEVEL 1-3 OR FEVER Last administered on 06/08/16 08:33; Admin Dose 650 MG; Start 05/29/16 at 18:00 Docusate Sodium (Colace) 100 mg Q12H PRN PO CONSTIPATION; Start 05/29/16 at 18: 00 Magnesium Hydroxide (Milk Of Mag) 30 ml DAILY PRN PO CONSTIPATION; Start at 18:00 Bisacodyl (Dulcolax) 5 mg DAILY PRN PO CONSTIPATION; Start 05/29/16 at 18:00 Pantoprazole (Protonix Tab) 40 mg DAILY@06 PO Last administered on 06/08/16 05 :20; Admin Dose 40 MG; Start 05/30/16 at 06:00 Enoxaparin Sodium (Lovenox) 30 mg DAILY SC Last administered on 06/08/16 08:37 ; Admin Dose 30 MG; Start 05/30/16 at 09:00 Miscellaneous Information 1 ea NOTE XX ; Start 05/29/16 at 19:00 Glucose (Glutose) 15 gm Q15M PRN PO DECREASED GLUCOSE; Start 05/29/16 at 19:00 Glucose (Glutose) 22.5 gm Q15M PRN PO DECREASED GLUCOSE; Start 05/29/16 at 19:00 Dextrose (D50w Syringe) 25 ml Q15M PRN IV DECREASED GLUCOSE; Start 05/29/16 at 19:00 Dextrose (D50w Syringe) 50 ml Q15M PRN IV DECREASED GLUCOSE; Start 05/29/16 at 19:00 Glucagon (Glucagen) 1 mg Q15M PRN IM DECREASED GLUCOSE; Start 05/29/16 at 19:00 Glucose (Glutose) 15 gm Q15M PRN BUCCAL DECREASED GLUCOSE; Start 05/29/16 at 19: 00 Hydralazine HCl (Apresoline) 20 mg Q6H PRN IV sbp >170 Last administered on 05/30 09:21; Admin Dose 20 MG; Start 05/30/16 at 09:30 Acetaminophen (Tylenol Supp) 650 mg Q6H PRN [place] fever Last administered on 09:17; Admin Dose 650 MG; Start 05/30/16 at 10:30 Metoprolol Tartrate (Lopressor) 25 mg BID PO Last administered on 06/07/16 19: 52; Admin Dose 25 MG; Start 05/30/16 at 21:00 Aspirin 81 mg 81 mg DAILY PO Last administered on 06/08/16 08:31; Admin Dose 81 MG; Start 05/31/16 at 09:00 Ondansetron HCl/ Dextrose (Zofran Inj/D5W) 54 ml @ 108 mls/hr Q6H PRN IV NAUSEA AND/OR VOMITING; Start 05/30/16 at 19:00 Ondansetron HCl (Zofran Inj) 4 mg Q6H PRN IV NAUSEA AND/OR VOMITING Last administered on 06/07/16 10:37; Admin Dose 4 MG; Start 05/30/16 at 19:30 Nitroglycerin (Nitroglycerin 0.4 Mg/Hr) 1 patch DAILY PRN TRANSDERM CHEST PAIN ; Start 06/01/16 at 16:30 Insulin Glargine (Lantus) 10 unit DAILY@08 SC Last administered on 06/08/16 09 :48; Admin Dose 10 UNIT; Start 06/02/16 at 08:00 Nitroglycerin 1 tab 1 tab Q5M PRN SL ANGINA Last administered on 06/06/16 17: 26; Admin Dose 1 TAB; Start 06/02/16 at 17:30 Metronidazole (Flagyl 500 Mg (Pmx)) 100 ml @ 100 mls/hr Q8 IVPB Last administered on 06/08/16 05:20; Admin Dose 100 MLS/HR; Start 06/05/16 at 11:00 Amikacin Sulfate (Amikacin Iv Per Pharmacy) AMIKACIN PER PHARMACY NOTE XX ; Start 06/05/16 at 17:00 Phenol (Cepastat Lozenge) 1 lozenge Q4H PRN [place] sore throat Last administered on 06/06/16 23:33; Admin Dose 1 LOZENGE; Start 06/06/16 at 18:30 ASHKAN JAMES ATTENDANT ARCADE Jun 08, 2016 13:53
--- NOTE | 2016-06-08 14:43 | CONS ---
Date/Time of Note Date/Time of Note DATE: 06/08/16 TIME: 14:39 Assessment/Plan Assessment/Plan Chief Complaint/Hosp Course IMPRESSION: 1. Positive troponin, assess significance. No sig uptrend and lexiscan this admit negative for ischemia 2. Shortness of breath, assess for congestive heart failure. 3. Abnormal electrocardiogram. Assess for acute coronary syndrome. 4. Pneumonia by chest x-ray and chest CT. 5. Chest mass and hilar lymphadenopathy.-by CT posssibly only infiltrate and not mass 6. End-stage renal disease on hemodialysis. 7. Leukocytosis. 8. Anemia. 9. Cardiomyopathy-LVEF 45% by echo Recc: -Tele -Continue abx;'s and f/u cx data -Continue asa -Continue norvasc/clonidine/BB/losartan/hydralazine and follow BP closely -PRN SL NTG for recurrent chest pain -HD for volume removal Problems: Consultation Date/Type/Reason Admit Date/Time May 29, 2016 at 14:54 Initial Consult Date 05/30/2016 Type of Consultation: Cardiology Reason for Consultation positive troponin Referring Provider: MICHELLE MCDANIEL MD Exam/Review of Systems Vital Signs Vitals Vital Signs Date Time Temp Pulse Resp B/P Pulse Ox O2 Delivery O2 Flow Rate FiO2 06/08/16 13:02 89 18 96 Nasal Cannula 2.0 06/08/16 11:42 98.9 92/54 06/08/16 02:30 28 Intake and Output 06/07/16 06/07/16 06/08/16 15:00 23:00 07:00 Intake Total 100 ml 300 ml Balance 100 ml 300 ml Exam Review of Systems: CONSTITUTIONAL: No fevers, chills. PULMONARY: No sob CARDIOVASCULAR: No chest pain/palpitations GASTROINTESTINAL: No nausea/vomiting. GENITOURINARY: No hematuria/dysuria. MUSCULOSKELETAL: No myagias/arthalgias. PSYCHIATRIC: The patient denies depression. NEUROLOGIC: No weakness Constitutional: alert, oriented Psych: no complaints Head: normocephalic ENMT: mucosa pink and moist Neck: jvd (9 cm watere), supple Respiratory: diminished breath sounds Cardiovascular: regular rate and rhythm Gastrointestinal: non-tender, soft Musculoskeletal: muscle tone Extremities: normal pulses Neurological: lethargic Results Result Diagram: 06/06/16 0648 06/08/16 0707 Results 24 hrs Laboratory Tests Test 06/07/16 17:16 06/07/16 19:19 06/08/16 07:07 06/08/16 08:05 Bedside Glucose 186 158 85 Alanine Aminotransferase (ALT/SGPT) 26 Albumin 3.8 Albumin/Globulin Ratio 1.22 Alkaline Phosphatase 103 Anion Gap 27 H Aspartate Amino Transf (AST/SGOT) 52 H Blood Urea Nitrogen 78 H Calcium Level 8.7 Carbon Dioxide Level 20 L Chloride Level 95 L Creatinine 6.39 H Direct Bilirubin 0.00 Globulin 3.10 Glucose Level 83 Indirect Bilirubin 0.0 Potassium Level 4.6 Sodium Level 137 Total Bilirubin 0.0 L Total Protein 6.9 Test 06/08/16 12:18 Bedside Glucose 198 Medications Medications Current Medications Amlodipine Besylate (Norvasc) 10 mg DAILY PO Last administered on 06/08/16 08: 31; Admin Dose 10 MG; Start 05/30/16 at 09:00 Latanoprost (Xalatan) 1 drop HS BOTH EYES Last administered on 06/07/16 19:54 ; Admin Dose 1 DROP; Start 05/29/16 at 21:00 Clonidine (Catapres) 0.1 mg TID PO Last administered on 06/06/16 23:21; Admin Dose 0.1 MG; Start 05/29/16 at 21:00 Fluoxetine HCl (Prozac) 20 mg DAILY PO Last administered on 06/08/16 08:31; Admin Dose 20 MG; Start 05/30/16 at 09:00 Gabapentin (Neurontin) 100 mg TID PO Last administered on 06/08/16 12:30; Admin Dose 100 MG; Start 05/29/16 at 21:00 Hydralazine HCl (Apresoline) 50 mg TID PO Last administered on 06/05/16 21:55; Admin Dose 50 MG; Start 05/29/16 at 21:00 Hydromorphone HCl (Dilaudid) 2 mg Q4H PRN PO PAIN Last administered on 19:51; Admin Dose 2 MG; Start 05/29/16 at 18:00 Losartan Potassium (Cozaar) 50 mg DAILY PO Last administered on 06/05/16 12:39 ; Admin Dose 50 MG; Start 05/30/16 at 09:00 Methocarbamol (Robaxin) 500 mg DAILY PO Last administered on 06/08/16 08:31; Admin Dose 500 MG; Start 05/30/16 at 09:00 Acetaminophen (Tylenol Tab) 650 mg Q6H PRN PO PAIN LEVEL 1-3 OR FEVER Last administered on 06/08/16 08:33; Admin Dose 650 MG; Start 05/29/16 at 18:00 Docusate Sodium (Colace) 100 mg Q12H PRN PO CONSTIPATION; Start 05/29/16 at 18: 00 Magnesium Hydroxide (Milk Of Mag) 30 ml DAILY PRN PO CONSTIPATION; Start at 18:00 Bisacodyl (Dulcolax) 5 mg DAILY PRN PO CONSTIPATION; Start 05/29/16 at 18:00 Pantoprazole (Protonix Tab) 40 mg DAILY@06 PO Last administered on 06/08/16 05 :20; Admin Dose 40 MG; Start 05/30/16 at 06:00 Enoxaparin Sodium (Lovenox) 30 mg DAILY SC Last administered on 06/08/16 08:37 ; Admin Dose 30 MG; Start 05/30/16 at 09:00 Miscellaneous Information 1 ea NOTE XX ; Start 05/29/16 at 19:00 Glucose (Glutose) 15 gm Q15M PRN PO DECREASED GLUCOSE; Start 05/29/16 at 19:00 Glucose (Glutose) 22.5 gm Q15M PRN PO DECREASED GLUCOSE; Start 05/29/16 at 19:00 Dextrose (D50w Syringe) 25 ml Q15M PRN IV DECREASED GLUCOSE; Start 05/29/16 at 19:00 Dextrose (D50w Syringe) 50 ml Q15M PRN IV DECREASED GLUCOSE; Start 05/29/16 at 19:00 Glucagon (Glucagen) 1 mg Q15M PRN IM DECREASED GLUCOSE; Start 05/29/16 at 19:00 Glucose (Glutose) 15 gm Q15M PRN BUCCAL DECREASED GLUCOSE; Start 05/29/16 at 19: 00 Hydralazine HCl (Apresoline) 20 mg Q6H PRN IV sbp >170 Last administered on 05/30 09:21; Admin Dose 20 MG; Start 05/30/16 at 09:30 Acetaminophen (Tylenol Supp) 650 mg Q6H PRN [place] fever Last administered on 09:17; Admin Dose 650 MG; Start 05/30/16 at 10:30 Metoprolol Tartrate (Lopressor) 25 mg BID PO Last administered on 06/07/16 19: 52; Admin Dose 25 MG; Start 05/30/16 at 21:00 Aspirin 81 mg 81 mg DAILY PO Last administered on 06/08/16 08:31; Admin Dose 81 MG; Start 05/31/16 at 09:00 Ondansetron HCl/ Dextrose (Zofran Inj/D5W) 54 ml @ 108 mls/hr Q6H PRN IV NAUSEA AND/OR VOMITING; Start 05/30/16 at 19:00 Ondansetron HCl (Zofran Inj) 4 mg Q6H PRN IV NAUSEA AND/OR VOMITING Last administered on 06/07/16 10:37; Admin Dose 4 MG; Start 05/30/16 at 19:30 Nitroglycerin (Nitroglycerin 0.4 Mg/Hr) 1 patch DAILY PRN TRANSDERM CHEST PAIN ; Start 06/01/16 at 16:30 Insulin Glargine (Lantus) 10 unit DAILY@08 SC Last administered on 06/08/16 09 :48; Admin Dose 10 UNIT; Start 06/02/16 at 08:00 Nitroglycerin 1 tab 1 tab Q5M PRN SL ANGINA Last administered on 06/06/16 17: 26; Admin Dose 1 TAB; Start 06/02/16 at 17:30 Metronidazole (Flagyl 500 Mg (Pmx)) 100 ml @ 100 mls/hr Q8 IVPB Last administered on 06/08/16 05:20; Admin Dose 100 MLS/HR; Start 06/05/16 at 11:00 Amikacin Sulfate (Amikacin Iv Per Pharmacy) AMIKACIN PER PHARMACY NOTE XX ; Start 06/05/16 at 17:00 Phenol (Cepastat Lozenge) 1 lozenge Q4H PRN [place] sore throat Last administered on 06/06/16 23:33; Admin Dose 1 LOZENGE; Start 06/06/16 at 18:30 Miscellaneous Information (*Rx Drug Level Order Reminder*) RANDOM VANCOMYCIN LEVEL 2... ONCE ONCE XX ; Start 06/09/16 at 05:00; Stop 06/09/16 at 05:01 ANNAMARIE SANTANA Jun 08, 2016 14:43
--- NOTE | 2016-06-08 15:12 | CONS ---
Date/Time of Note Date/Time of Note DATE: 06/08/16 TIME: 15:11 Consult Date/Type/Reason Admit Date/Time May 29, 2016 at 14:54 Type of Consultation: Pulm Ordering Provider: MICHELLE MCDANIEL MD Subjective No events overnight. Objective Vital Signs Date Time Temp Pulse Resp B/P Pulse Ox O2 Delivery O2 Flow Rate FiO2 06/08/16 13:02 89 18 96 Nasal Cannula 2.0 06/08/16 11:42 98.9 92/54 06/08/16 02:30 28 Intake and Output 06/07/16 06/07/16 06/08/16 15:00 23:00 07:00 Intake Total 100 ml 300 ml Balance 100 ml 300 ml HEENT: Neck supple; no JVD; no LAD CVS: RRR, S1 and S2 CHEST: Clear ABD: Soft, NT, + BS EXT: No c/c/e Results/Medications Result Diagram: 06/06/16 0648 06/08/16 0707 Results 24 hrs Laboratory Tests Test 06/07/16 17:16 06/07/16 19:19 06/08/16 07:07 06/08/16 08:05 Bedside Glucose 186 158 85 Alanine Aminotransferase (ALT/SGPT) 26 Albumin 3.8 Albumin/Globulin Ratio 1.22 Alkaline Phosphatase 103 Anion Gap 27 H Aspartate Amino Transf (AST/SGOT) 52 H Blood Urea Nitrogen 78 H Calcium Level 8.7 Carbon Dioxide Level 20 L Chloride Level 95 L Creatinine 6.39 H Direct Bilirubin 0.00 Globulin 3.10 Glucose Level 83 Indirect Bilirubin 0.0 Potassium Level 4.6 Sodium Level 137 Total Bilirubin 0.0 L Total Protein 6.9 Test 06/08/16 12:18 Bedside Glucose 198 Medications Current Medications Amlodipine Besylate (Norvasc) 10 mg DAILY PO Last administered on 06/08/16 08: 31; Admin Dose 10 MG; Start 05/30/16 at 09:00 Latanoprost (Xalatan) 1 drop HS BOTH EYES Last administered on 06/07/16 19:54 ; Admin Dose 1 DROP; Start 05/29/16 at 21:00 Clonidine (Catapres) 0.1 mg TID PO Last administered on 06/06/16 23:21; Admin Dose 0.1 MG; Start 05/29/16 at 21:00 Fluoxetine HCl (Prozac) 20 mg DAILY PO Last administered on 06/08/16 08:31; Admin Dose 20 MG; Start 05/30/16 at 09:00 Gabapentin (Neurontin) 100 mg TID PO Last administered on 06/08/16 12:30; Admin Dose 100 MG; Start 05/29/16 at 21:00 Hydralazine HCl (Apresoline) 50 mg TID PO Last administered on 06/05/16 21:55; Admin Dose 50 MG; Start 05/29/16 at 21:00 Hydromorphone HCl (Dilaudid) 2 mg Q4H PRN PO PAIN Last administered on 19:51; Admin Dose 2 MG; Start 05/29/16 at 18:00 Losartan Potassium (Cozaar) 50 mg DAILY PO Last administered on 06/05/16 12:39 ; Admin Dose 50 MG; Start 05/30/16 at 09:00 Methocarbamol (Robaxin) 500 mg DAILY PO Last administered on 06/08/16 08:31; Admin Dose 500 MG; Start 05/30/16 at 09:00 Acetaminophen (Tylenol Tab) 650 mg Q6H PRN PO PAIN LEVEL 1-3 OR FEVER Last administered on 06/08/16 08:33; Admin Dose 650 MG; Start 05/29/16 at 18:00 Docusate Sodium (Colace) 100 mg Q12H PRN PO CONSTIPATION; Start 05/29/16 at 18: 00 Magnesium Hydroxide (Milk Of Mag) 30 ml DAILY PRN PO CONSTIPATION; Start at 18:00 Bisacodyl (Dulcolax) 5 mg DAILY PRN PO CONSTIPATION; Start 05/29/16 at 18:00 Pantoprazole (Protonix Tab) 40 mg DAILY@06 PO Last administered on 06/08/16 05 :20; Admin Dose 40 MG; Start 05/30/16 at 06:00 Enoxaparin Sodium (Lovenox) 30 mg DAILY SC Last administered on 06/08/16 08:37 ; Admin Dose 30 MG; Start 05/30/16 at 09:00 Miscellaneous Information 1 ea NOTE XX ; Start 05/29/16 at 19:00 Glucose (Glutose) 15 gm Q15M PRN PO DECREASED GLUCOSE; Start 05/29/16 at 19:00 Glucose (Glutose) 22.5 gm Q15M PRN PO DECREASED GLUCOSE; Start 05/29/16 at 19:00 Dextrose (D50w Syringe) 25 ml Q15M PRN IV DECREASED GLUCOSE; Start 05/29/16 at 19:00 Dextrose (D50w Syringe) 50 ml Q15M PRN IV DECREASED GLUCOSE; Start 05/29/16 at 19:00 Glucagon (Glucagen) 1 mg Q15M PRN IM DECREASED GLUCOSE; Start 05/29/16 at 19:00 Glucose (Glutose) 15 gm Q15M PRN BUCCAL DECREASED GLUCOSE; Start 05/29/16 at 19: 00 Hydralazine HCl (Apresoline) 20 mg Q6H PRN IV sbp >170 Last administered on 05/30 09:21; Admin Dose 20 MG; Start 05/30/16 at 09:30 Acetaminophen (Tylenol Supp) 650 mg Q6H PRN [place] fever Last administered on 09:17; Admin Dose 650 MG; Start 05/30/16 at 10:30 Metoprolol Tartrate (Lopressor) 25 mg BID PO Last administered on 06/07/16 19: 52; Admin Dose 25 MG; Start 05/30/16 at 21:00 Aspirin 81 mg 81 mg DAILY PO Last administered on 06/08/16 08:31; Admin Dose 81 MG; Start 05/31/16 at 09:00 Ondansetron HCl/ Dextrose (Zofran Inj/D5W) 54 ml @ 108 mls/hr Q6H PRN IV NAUSEA AND/OR VOMITING; Start 05/30/16 at 19:00 Ondansetron HCl (Zofran Inj) 4 mg Q6H PRN IV NAUSEA AND/OR VOMITING Last administered on 06/07/16 10:37; Admin Dose 4 MG; Start 05/30/16 at 19:30 Nitroglycerin (Nitroglycerin 0.4 Mg/Hr) 1 patch DAILY PRN TRANSDERM CHEST PAIN ; Start 06/01/16 at 16:30 Insulin Glargine (Lantus) 10 unit DAILY@08 SC Last administered on 06/08/16 09 :48; Admin Dose 10 UNIT; Start 06/02/16 at 08:00 Nitroglycerin 1 tab 1 tab Q5M PRN SL ANGINA Last administered on 06/06/16 17: 26; Admin Dose 1 TAB; Start 06/02/16 at 17:30 Metronidazole (Flagyl 500 Mg (Pmx)) 100 ml @ 100 mls/hr Q8 IVPB Last administered on 06/08/16 14:48; Admin Dose 100 MLS/HR; Start 06/05/16 at 11:00 Amikacin Sulfate (Amikacin Iv Per Pharmacy) AMIKACIN PER PHARMACY NOTE XX ; Start 06/05/16 at 17:00 Phenol (Cepastat Lozenge) 1 lozenge Q4H PRN MT sore throat Last administered on 06/06/16 23:33; Admin Dose 1 LOZENGE; Start 06/06/16 at 18:30 Miscellaneous Information (*Rx Drug Level Order Reminder*) RANDOM VANCOMYCIN LEVEL 2... ONCE ONCE XX ; Start 06/09/16 at 05:00; Stop 06/09/16 at 05:01 Assessment/Plan Additional Assessment/Plan IMP: 1. RUL infiltrate--possibly aspiration 2. Esophageal dilation RECS: 1. Aspiration precautions 2. Abx per ID PATRICIA RODRIGUEZ MD Jun 08, 2016 15:12
--- NOTE | 2016-06-08 19:06 | PN ---
Date/Time of Note Date/Time of Note DATE: 06/08/16 TIME: 19:01 Assessment/Plan VTE Prophylaxis VTE Prophylaxis Intervention: other Assessment/Plan Chief Complaint/Hosp Course VTE Prophylaxis VTE Prophylaxis Intervention: other Assessment/Plan Problems: (1) Congestive heart failure Status: Chronic Qualifiers: Congestive heart failure type: systolic (2) Shortness of breath Status: Acute (3) Hypertensive emergency Status: Acute (4) Hyperkalemia Status: Acute (5) Lung mass Status: Acute (6) Diabetic gastroparesis Status: Chronic (7) ESRD (end stage renal disease) Status: Chronic [id number] cont supportive care hd per plan Problems: Subjective 24 Hr Interval Summary Constitutional: no complaints Respiratory: shortness of breath Cardiovascular: no complaints Gastrointestinal: no complaints Exam/Review of Systems Vital Signs Vitals Vital Signs Date Time Temp Pulse Resp B/P Pulse Ox O2 Delivery O2 Flow Rate FiO2 06/08/16 16:00 78 06/08/16 15:50 98.3 18 107/54 100 06/08/16 13:02 Nasal Cannula 2.0 06/08/16 02:30 28 Intake and Output 06/07/16 06/07/16 06/08/16 15:00 23:00 07:00 Intake Total 100 ml 300 ml Balance 100 ml 300 ml Exam Constitutional: alert, oriented Neck: supple Respiratory: clear to auscultation, diminished breath sounds Cardiovascular: regular rate and rhythm Gastrointestinal: soft Results Result Diagram: 06/06/16 0648 06/08/16 0707 Results 24 hrs Laboratory Tests Test 06/07/16 19:19 06/08/16 07:07 06/08/16 08:05 06/08/16 12:18 Bedside Glucose 158 85 198 Alanine Aminotransferase (ALT/SGPT) 26 Albumin 3.8 Albumin/Globulin Ratio 1.22 Alkaline Phosphatase 103 Anion Gap 27 H Aspartate Amino Transf (AST/SGOT) 52 H Blood Urea Nitrogen 78 H Calcium Level 8.7 Carbon Dioxide Level 20 L Chloride Level 95 L Creatinine 6.39 H Direct Bilirubin 0.00 Globulin 3.10 Glucose Level 83 Indirect Bilirubin 0.0 Potassium Level 4.6 Sodium Level 137 Total Bilirubin 0.0 L Total Protein 6.9 Test 06/08/16 17:14 Bedside Glucose 148 Medications Medications Current Medications Amlodipine Besylate (Norvasc) 10 mg DAILY PO Last administered on 06/08/16t 08: 31; Admin Dose 10 MG; Start 05/30/16 at 09:00 Latanoprost (Xalatan) 1 drop HS BOTH EYES Last administered on 06/07/16 19:54 ; Admin Dose 1 DROP; Start 05/29/16 at 21:00 Clonidine (Catapres) 0.1 mg TID PO Last administered on 06/06/16 23:21; Admin Dose 0.1 MG; Start 05/29/16 at 21:00 Fluoxetine HCl (Prozac) 20 mg DAILY PO Last administered on 06/08/16 08:31; Admin Dose 20 MG; Start 05/30/16 at 09:00 Gabapentin (Neurontin) 100 mg TID PO Last administered on 06/08/16 12:30; Admin Dose 100 MG; Start 05/29/16 at 21:00 Hydralazine HCl (Apresoline) 50 mg TID PO Last administered on 06/05/16 21:55; Admin Dose 50 MG; Start 05/29/16 at 21:00 Hydromorphone HCl (Dilaudid) 2 mg Q4H PRN PO PAIN Last administered on 19:51; Admin Dose 2 MG; Start 05/29/16 at 18:00 Losartan Potassium (Cozaar) 50 mg DAILY PO Last administered on 06/05/16 12:39 ; Admin Dose 50 MG; Start 05/30/16 at 09:00 Methocarbamol (Robaxin) 500 mg DAILY PO Last administered on 06/08/16 08:31; Admin Dose 500 MG; Start 05/30/16 at 09:00 Acetaminophen (Tylenol Tab) 650 mg Q6H PRN PO PAIN LEVEL 1-3 OR FEVER Last administered on 06/08/16 08:33; Admin Dose 650 MG; Start 05/29/16 at 18:00 Docusate Sodium (Colace) 100 mg Q12H PRN PO CONSTIPATION; Start 05/29/16 at 18: 00 Magnesium Hydroxide (Milk Of Mag) 30 ml DAILY PRN PO CONSTIPATION; Start at 18:00 Bisacodyl (Dulcolax) 5 mg DAILY PRN PO CONSTIPATION; Start 05/29/16 at 18:00 Pantoprazole (Protonix Tab) 40 mg DAILY@06 PO Last administered on 06/08/16 05 :20; Admin Dose 40 MG; Start 05/30/16 at 06:00 Enoxaparin Sodium (Lovenox) 30 mg DAILY SC Last administered on 06/08/16 08:37 ; Admin Dose 30 MG; Start 05/30/16 at 09:00 Miscellaneous Information 1 ea NOTE XX ; Start 05/29/16 at 19:00 Glucose (Glutose) 15 gm Q15M PRN PO DECREASED GLUCOSE; Start 05/29/16 at 19:00 Glucose (Glutose) 22.5 gm Q15M PRN PO DECREASED GLUCOSE; Start 05/29/16 at 19:00 Dextrose (D50w Syringe) 25 ml Q15M PRN IV DECREASED GLUCOSE; Start 05/29/16 at 19:00 Dextrose (D50w Syringe) 50 ml Q15M PRN IV DECREASED GLUCOSE; Start 05/29/16 at 19:00 Glucagon (Glucagen) 1 mg Q15M PRN IM DECREASED GLUCOSE; Start 05/29/16 at 19:00 Glucose (Glutose) 15 gm Q15M PRN BUCCAL DECREASED GLUCOSE; Start 05/29/16 at 19: 00 Hydralazine HCl (Apresoline) 20 mg Q6H PRN IV sbp >170 Last administered on 05/30 09:21; Admin Dose 20 MG; Start 05/30/16 at 09:30 Acetaminophen (Tylenol Supp) 650 mg Q6H PRN [place] fever Last administered on 09:17; Admin Dose 650 MG; Start 05/30/16 at 10:30 Metoprolol Tartrate (Lopressor) 25 mg BID PO Last administered on 06/07/16 19: 52; Admin Dose 25 MG; Start 05/30/16 at 21:00 Aspirin 81 mg 81 mg DAILY PO Last administered on 06/08/16 08:31; Admin Dose 81 MG; Start 05/31/16 at 09:00 Ondansetron HCl/ Dextrose (Zofran Inj/D5W) 54 ml @ 108 mls/hr Q6H PRN IV NAUSEA AND/OR VOMITING; Start 05/30/16 at 19:00 Ondansetron HCl (Zofran Inj) 4 mg Q6H PRN IV NAUSEA AND/OR VOMITING Last administered on 06/07/16 10:37; Admin Dose 4 MG; Start 05/30/16 at 19:30 Nitroglycerin (Nitroglycerin 0.4 Mg/Hr) 1 patch DAILY PRN TRANSDERM CHEST PAIN ; Start 06/01/16 at 16:30 Insulin Glargine (Lantus) 10 unit DAILY@08 SC Last administered on 06/08/16 09 :48; Admin Dose 10 UNIT; Start 06/02/16 at 08:00 Nitroglycerin 1 tab 1 tab Q5M PRN SL ANGINA Last administered on 06/06/16 17: 26; Admin Dose 1 TAB; Start 06/02/16 at 17:30 Metronidazole (Flagyl 500 Mg (Pmx)) 100 ml @ 100 mls/hr Q8 IVPB Last administered on 06/08/16 14:48; Admin Dose 100 MLS/HR; Start 06/05/16 at 11:00 Amikacin Sulfate (Amikacin Iv Per Pharmacy) AMIKACIN PER PHARMACY NOTE XX ; Start 06/05/16 at 17:00 Phenol (Cepastat Lozenge) 1 lozenge Q4H PRN [place] sore throat Last administered on 06/06/16 23:33; Admin Dose 1 LOZENGE; Start 06/06/16 at 18:30 Miscellaneous Information (*Rx Drug Level Order Reminder*) RANDOM VANCOMYCIN LEVEL 2... ONCE ONCE XX ; Start 06/09/16 at 05:00; Stop 06/09/16 at 05:01 SEAN PLAZA MD Jun 08, 2016 19:06
[2016-06-08] MEDS: LATANOPROST 0.005% 2.5 ML OPH BOTH EYES SCH (20:10)
[2016-06-09] VITALS (19 sets, daily range): BP systolic 89–147; BP diastolic 52–62; PULSE 67–84; RESP 18–19
[2016-06-09] MEDS: ALBUTEROL/IPRATROPIUM (NEB) 3 ML AMP INH SCH ×4 (01:25→20:00)
[2016-06-09] MEDS: PANTOPRAZOLE (EC) 40 MG TAB PO SCH (05:25)
[2016-06-09] MEDS: metroNIDAZOLE 500 MG/NS (PMX) 100 ML IVPB SCH ×3 (05:26→23:20)
[2016-06-09] MEDS: INSULIN ASPART [NOVOLOG] 3 ML PEN SC SCH ×4 (07:27→21:00)
[2016-06-09] MEDS: INSULIN GLARGINE [LANtus] 3 ML PEN SC SCH ×2 (08:00→08:58)
[2016-06-09] MEDS: ASPIRIN 81 MG TAB PO SCH (08:29)
[2016-06-09] MEDS: LOSARTAN 50 MG TAB PO SCH (08:29)
[2016-06-09] MEDS: SEVELAMER CARBONATE 0.8 GM PKT PO SCH ×3 (08:29→17:15)
[2016-06-09] MEDS: FLUOXETINE 20 MG CAP PO SCH (08:29)
[2016-06-09] MEDS: GABAPENTIN 100 MG CAP PO SCH ×3 (08:29→21:05)
[2016-06-09] MEDS: AMLODIPINE 10 MG TAB PO SCH (08:29)
[2016-06-09] MEDS: CALCIUM ACETATE 667 MG CAP PO SCH ×3 (08:30→17:16)
[2016-06-09] MEDS: METHOCARBAMOL 500 MG TAB PO SCH (08:30)
[2016-06-09] MEDS: METOPROLOL 25 MG TAB PO SCH ×2 (08:30→21:00)
[2016-06-09] MEDS: ENOXAPARIN 30 MG/0.3 ML SYG SC SCH (08:35)
--- NOTE | 2016-06-09 12:43 | PN ---
DATE: 06/09/2016 SUBJECTIVE: The patient appears comfortable this morning. OBJECTIVE: VITAL SIGNS: Temperature 98, pulse is 72, blood pressure 116/56, O2 saturation 99% on 2 L nasal can nula. NECK: Supple. No JVD or lymphadenopathy. CARDIAC: S1, S2, no added sounds or murmurs. CHEST: Diminished air entry bilaterally. ABDOMEN: Soft, nontender. No guarding or rebound. EXTREMITIES: No cyanosis, clubbing, or edema. NEUROLOGIC: Generalized weakness, but no focal deficits. IMPRESSION AND PLAN: 1. Resolving right upper lobe pneumonia. 2. Deconditioning. 3. Possible aspiration syndrome. Patient is stable for discharge planning from pulmonary standpoint. Dictated By: EHSAN MENDIOLA/YAHIR Conf#: [id number] DID#: [id number]
--- NOTE | 2016-06-09 13:43 | PN ---
Date/Time of Note Date/Time of Note DATE: 06/09/16 TIME: 13:42 Assessment/Plan VTE Prophylaxis VTE Prophylaxis Intervention: other Assessment/Plan Chief Complaint/Hosp Course VTE Prophylaxis VTE Prophylaxis Intervention: other Assessment/Plan Problems: (1) Congestive heart failure Status: Chronic Qualifiers: Congestive heart failure type: systolic (2) Shortness of breath Status: Acute (3) Hypertensive emergency Status: Acute (4) Hyperkalemia Status: Acute (5) Lung mass Status: Acute (6) Diabetic gastroparesis Status: Chronic (7) ESRD (end stage renal disease) Status: Chronic [id number] cont supportive care hd per plan [id number] dc plan Problems: Exam/Review of Systems Vital Signs Vitals Vital Signs Date Time Temp Pulse Resp B/P Pulse Ox O2 Delivery O2 Flow Rate FiO2 06/09/16 13:23 79 18 94 21 06/09/16 12:08 97.1 119/54 06/09/16 08:00 Nasal Cannula 2.0 Intake and Output 06/08/16 06/08/16 06/09/16 15:00 23:00 07:00 Intake Total 550 ml 240 ml Balance 550 ml 240 ml Exam Constitutional: alert Eyes: nl conjunctiva ENMT: nl external ears & nose Neck: supple Respiratory: clear to auscultation Cardiovascular: regular rate and rhythm Gastrointestinal: soft Genitourinary - Female: nl adnexae Extremities: normal pulses Results Result Diagram: 06/06/16 0648 06/08/16 0707 Results 24 hrs Laboratory Tests Test 06/08/16 17:14 06/08/16 19:14 06/09/16 05:58 06/09/16 07:25 Bedside Glucose 148 138 99 Random Vancomycin Level 17.9 Test 06/09/16 11:50 Bedside Glucose 108 Medications Medications Current Medications Amlodipine Besylate (Norvasc) 10 mg DAILY PO Last administered on 06/09/16 08: 29; Admin Dose 10 MG; Start 05/30/16 at 09:00 Latanoprost (Xalatan) 1 drop HS BOTH EYES Last administered on 06/08/16 20:10 ; Admin Dose 1 DROP; Start 05/29/16 at 21:00 Clonidine (Catapres) 0.1 mg TID PO Last administered on 06/06/16 23:21; Admin Dose 0.1 MG; Start 05/29/16 at 21:00 Fluoxetine HCl (Prozac) 20 mg DAILY PO Last administered on 06/09/16 08:29; Admin Dose 20 MG; Start 05/30/16 at 09:00 Gabapentin (Neurontin) 100 mg TID PO Last administered on 06/09/16 12:18; Admin Dose 100 MG; Start 05/29/16 at 21:00 Hydralazine HCl (Apresoline) 50 mg TID PO Last administered on 06/05/16 21:55; Admin Dose 50 MG; Start 05/29/16 at 21:00 Hydromorphone HCl (Dilaudid) 2 mg Q4H PRN PO PAIN Last administered on 19:51; Admin Dose 2 MG; Start 05/29/16 at 18:00 Losartan Potassium (Cozaar) 50 mg DAILY PO Last administered on 06/09/16 08:29 ; Admin Dose 50 MG; Start 05/30/16 at 09:00 Methocarbamol (Robaxin) 500 mg DAILY PO Last administered on 06/09/16 08:30; Admin Dose 500 MG; Start 05/30/16 at 09:00 Acetaminophen (Tylenol Tab) 650 mg Q6H PRN PO PAIN LEVEL 1-3 OR FEVER Last administered on 06/08/16 08:33; Admin Dose 650 MG; Start 05/29/16 at 18:00 Docusate Sodium (Colace) 100 mg Q12H PRN PO CONSTIPATION; Start 05/29/16 at 18: 00 Magnesium Hydroxide (Milk Of Mag) 30 ml DAILY PRN PO CONSTIPATION; Start at 18:00 Bisacodyl (Dulcolax) 5 mg DAILY PRN PO CONSTIPATION; Start 05/29/16 at 18:00 Pantoprazole (Protonix Tab) 40 mg DAILY@06 PO Last administered on 06/09/16 05 :25; Admin Dose 40 MG; Start 05/30/16 at 06:00 Enoxaparin Sodium (Lovenox) 30 mg DAILY SC Last administered on 06/09/16 08:35 ; Admin Dose 30 MG; Start 05/30/16 at 09:00 Miscellaneous Information 1 ea NOTE XX ; Start 05/29/16 at 19:00 Glucose (Glutose) 15 gm Q15M PRN PO DECREASED GLUCOSE; Start 05/29/16 at 19:00 Glucose (Glutose) 22.5 gm Q15M PRN PO DECREASED GLUCOSE; Start 05/29/16 at 19:00 Dextrose (D50w Syringe) 25 ml Q15M PRN IV DECREASED GLUCOSE; Start 05/29/16 at 19:00 Dextrose (D50w Syringe) 50 ml Q15M PRN IV DECREASED GLUCOSE; Start 05/29/16 at 19:00 Glucagon (Glucagen) 1 mg Q15M PRN IM DECREASED GLUCOSE; Start 05/29/16 at 19:00 Glucose (Glutose) 15 gm Q15M PRN BUCCAL DECREASED GLUCOSE; Start 05/29/16 at 19: 00 Hydralazine HCl (Apresoline) 20 mg Q6H PRN IV sbp >170 Last administered on 05/30 09:21; Admin Dose 20 MG; Start 05/30/16 at 09:30 Acetaminophen (Tylenol Supp) 650 mg Q6H PRN [place] fever Last administered on 09:17; Admin Dose 650 MG; Start 05/30/16 at 10:30 Metoprolol Tartrate (Lopressor) 25 mg BID PO Last administered on 06/09/16 08: 30; Admin Dose 25 MG; Start 05/30/16 at 21:00 Aspirin 81 mg 81 mg DAILY PO Last administered on 06/09/16 08:29; Admin Dose 81 MG; Start 05/31/16 at 09:00 Ondansetron HCl/ Dextrose (Zofran Inj/D5W) 54 ml @ 108 mls/hr Q6H PRN IV NAUSEA AND/OR VOMITING; Start 05/30/16 at 19:00 Ondansetron HCl (Zofran Inj) 4 mg Q6H PRN IV NAUSEA AND/OR VOMITING Last administered on 06/07/16 10:37; Admin Dose 4 MG; Start 05/30/16 at 19:30 Nitroglycerin (Nitroglycerin 0.4 Mg/Hr) 1 patch DAILY PRN TRANSDERM CHEST PAIN ; Start 06/01/16 at 16:30 Insulin Glargine (Lantus) 10 unit DAILY@08 SC Last administered on 06/09/16 08 :58; Admin Dose 10 UNIT; Start 06/02/16 at 08:00 Nitroglycerin 1 tab 1 tab Q5M PRN SL ANGINA Last administered on 06/06/16 17: 26; Admin Dose 1 TAB; Start 06/02/16 at 17:30 Metronidazole (Flagyl 500 Mg (Pmx)) 100 ml @ 100 mls/hr Q8 IVPB Last administered on 06/09/16 05:26; Admin Dose 100 MLS/HR; Start 06/05/16 at 11:00 Amikacin Sulfate (Amikacin Iv Per Pharmacy) AMIKACIN PER PHARMACY NOTE XX ; Start 06/05/16 at 17:00 Phenol 1 lozenge 1 lozenge Q4H PRN [place] sore throat Last administered on 23:33; Admin Dose 1 LOZENGE; Start 06/06/16 at 18:30 Vancomycin HCl/ Sodium Chloride (Vancocin/NS) 150 ml @ 75 mls/hr Q96H IVPB ; Start 06/09/16 at 15:00 SEAN PLAZA MD Jun 09, 2016 13:43
--- NOTE | 2016-06-09 13:46 | PDOCDIS ---
Discharge Instructions CONDITION Patient Condition: Stable HOME CARE INSTRUCTIONS: Diet Instructions: Special Diet: LOW FAT LOW CHLOLESTROL/ RENAL/ CARB CONTROLLED ACTIVITY: Activity Restrictions: Avoid heavy lifting SEAN PLAZA MD Jun 09, 2016 13:45
--- NOTE | 2016-06-09 14:39 | PN ---
DATE: 06/09/2016 INFECTIOUS DISEASE PROGRESS NOTE SUBJECTIVE: The patient is awake, looks comfortable. Family at bedside. No diarrhea, no fevers. LABORATORY DATA: No labs this morning. INDWELLINGS: AV fistula, left upper extremity. ANTIMICROBIALS: The patient on: 1. Vancomycin. 2. Amikacin. 3. Flagyl. 4. Oral vancomycin. PHYSICAL EXAMINATION: GENERAL: This is a fragile, elderly woman who is awake, in no distress. HEENT: Head atraumatic, normocephalic. Sclerae anicteric. Buccal mucosa pink. NECK: Supple, trachea midline. CHEST: Rise symmetrical. Breath sounds diminished to bases. HEART: S1, S2. ABDOMEN: Soft, bowel sounds present. EXTREMITIES: Without cyanosis. ASSESSMENT: 1. Resolving leukocytosis. 2. Clostridium difficile colitis. 3. Right upper lobe pneumonia, possibly aspiration, radiographically improving. 4. End-stage renal disease, on hemodialysis. 5. Diabetes. 6. Coronary artery disease. PLAN: The patient remains stable, continues to improve. Continue antibiotics and follow recommenda tions of consultants. Dictated By: PAULA CHANEL [employer]READ [employer]DER for [employer] ASH MD NI/NTS Conf#: [id number] DID#: [id number]
[2016-06-09] MEDS ORDERED: VANCOMYCIN 750 MG in SOD CHLORIDE 0.9% 150 ML IVPB SCH (15:00)
[2016-06-09] MEDS: ACETAMINOPHEN 325 MG TAB PO PRN (17:24)
--- NOTE | 2016-06-09 17:49 | CONS ---
Date/Time of Note Date/Time of Note DATE: 06/09/16 TIME: 17:47 Assessment/Plan Assessment/Plan Chief Complaint/Hosp Course IMPRESSION: 1. Positive troponin, assess significance. No sig uptrend and lexiscan this admit negative for ischemia 2. Shortness of breath, assess for congestive heart failure. 3. Abnormal electrocardiogram. Assess for acute coronary syndrome. 4. Pneumonia by chest x-ray and chest CT. 5. Chest mass and hilar lymphadenopathy.-by CT posssibly only infiltrate and not mass 6. End-stage renal disease on hemodialysis. 7. Leukocytosis. 8. Anemia. 9. Cardiomyopathy-LVEF 45% by echo Recc: -Tele -Continue abx;'s and f/u cx data -Continue asa -Continue norvasc/clonidine/BB/losartan/hydralazine and follow BP closely -PRN SL NTG for recurrent chest pain -HD for volume removal Problems: Consultation Date/Type/Reason Admit Date/Time May 29, 2016 at 14:54 Initial Consult Date 05/30/2016 Type of Consultation: Cardiology Reason for Consultation positive troponin Referring Provider: MICHELLE MCDANIEL MD Exam/Review of Systems Vital Signs Vitals Vital Signs Date Time Temp Pulse Resp B/P Pulse Ox O2 Delivery O2 Flow Rate FiO2 06/09/16 16:30 69 06/09/16 15:00 98.0 18 114/62 98 06/09/16 13:23 21 06/09/16 08:00 Nasal Cannula 2.0 Intake and Output 06/08/16 06/08/16 06/09/16 15:00 23:00 07:00 Intake Total 550 ml 240 ml Balance 550 ml 240 ml Exam Review of Systems: CONSTITUTIONAL: No fevers, chills. PULMONARY: No sob CARDIOVASCULAR: No chest pain/palpitations GASTROINTESTINAL: No nausea/vomiting. GENITOURINARY: No hematuria/dysuria. MUSCULOSKELETAL: No myagias/arthalgias. PSYCHIATRIC: The patient denies depression. NEUROLOGIC: lethargic Constitutional: other (sleeping) Head: normocephalic ENMT: mucosa pink and moist Neck: jvd (9 cm water), supple Respiratory: diminished breath sounds (at bases/B) Cardiovascular: regular rate and rhythm Gastrointestinal: non-tender, soft Musculoskeletal: muscle tone (normal) Extremities: edema (none) Neurological: other (No focal deficits) Results Result Diagram: 06/06/16 0648 06/08/16 0707 Results 24 hrs Laboratory Tests Test 06/08/16 19:14 06/09/16 05:58 06/09/16 07:25 06/09/16 11:50 Bedside Glucose 138 99 108 Random Vancomycin Level 17.9 Test 06/09/16 16:51 Bedside Glucose 98 Medications Medications Current Medications Amlodipine Besylate (Norvasc) 10 mg DAILY PO Last administered on 06/09/16 08: 29; Admin Dose 10 MG; Start 05/30/16 at 09:00 Latanoprost (Xalatan) 1 drop HS BOTH EYES Last administered on 06/08/16 20:10 ; Admin Dose 1 DROP; Start 05/29/16 at 21:00 Clonidine (Catapres) 0.1 mg TID PO Last administered on 06/06/16 23:21; Admin Dose 0.1 MG; Start 05/29/16 at 21:00 Fluoxetine HCl (Prozac) 20 mg DAILY PO Last administered on 06/09/16 08:29; Admin Dose 20 MG; Start 05/30/16 at 09:00 Gabapentin (Neurontin) 100 mg TID PO Last administered on 06/09/16 12:18; Admin Dose 100 MG; Start 05/29/16 at 21:00 Hydralazine HCl (Apresoline) 50 mg TID PO Last administered on 06/05/16 21:55; Admin Dose 50 MG; Start 05/29/16 at 21:00 Hydromorphone HCl (Dilaudid) 2 mg Q4H PRN PO PAIN Last administered on 19:51; Admin Dose 2 MG; Start 05/29/16 at 18:00 Losartan Potassium (Cozaar) 50 mg DAILY PO Last administered on 06/09/16 08:29 ; Admin Dose 50 MG; Start 05/30/16 at 09:00 Methocarbamol (Robaxin) 500 mg DAILY PO Last administered on 06/09/16 08:30; Admin Dose 500 MG; Start 05/30/16 at 09:00 Acetaminophen (Tylenol Tab) 650 mg Q6H PRN PO PAIN LEVEL 1-3 OR FEVER Last administered on 06/09/16 17:24; Admin Dose 650 MG; Start 05/29/16 at 18:00 Docusate Sodium (Colace) 100 mg Q12H PRN PO CONSTIPATION; Start 05/29/16 at 18: 00 Magnesium Hydroxide (Milk Of Mag) 30 ml DAILY PRN PO CONSTIPATION; Start at 18:00 Bisacodyl (Dulcolax) 5 mg DAILY PRN PO CONSTIPATION; Start 05/29/16 at 18:00 Pantoprazole (Protonix Tab) 40 mg DAILY@06 PO Last administered on 06/09/16 05 :25; Admin Dose 40 MG; Start 05/30/16 at 06:00 Enoxaparin Sodium (Lovenox) 30 mg DAILY SC Last administered on 06/09/16 08:35 ; Admin Dose 30 MG; Start 05/30/16 at 09:00 Miscellaneous Information 1 ea NOTE XX ; Start 05/29/16 at 19:00 Glucose (Glutose) 15 gm Q15M PRN PO DECREASED GLUCOSE; Start 05/29/16 at 19:00 Glucose (Glutose) 22.5 gm Q15M PRN PO DECREASED GLUCOSE; Start 05/29/16 at 19:00 Dextrose (D50w Syringe) 25 ml Q15M PRN IV DECREASED GLUCOSE; Start 05/29/16 at 19:00 Dextrose (D50w Syringe) 50 ml Q15M PRN IV DECREASED GLUCOSE; Start 05/29/16 at 19:00 Glucagon (Glucagen) 1 mg Q15M PRN IM DECREASED GLUCOSE; Start 05/29/16 at 19:00 Glucose (Glutose) 15 gm Q15M PRN BUCCAL DECREASED GLUCOSE; Start 05/29/16 at 19: 00 Hydralazine HCl (Apresoline) 20 mg Q6H PRN IV sbp >170 Last administered on 05/30 09:21; Admin Dose 20 MG; Start 05/30/16 at 09:30 Acetaminophen (Tylenol Supp) 650 mg Q6H PRN [place] fever Last administered on 09:17; Admin Dose 650 MG; Start 05/30/16 at 10:30 Metoprolol Tartrate (Lopressor) 25 mg BID PO Last administered on 06/09/16 08: 30; Admin Dose 25 MG; Start 05/30/16 at 21:00 Aspirin 81 mg 81 mg DAILY PO Last administered on 06/09/16 08:29; Admin Dose 81 MG; Start 05/31/16 at 09:00 Ondansetron HCl/ Dextrose (Zofran Inj/D5W) 54 ml @ 108 mls/hr Q6H PRN IV NAUSEA AND/OR VOMITING; Start 05/30/16 at 19:00 Ondansetron HCl (Zofran Inj) 4 mg Q6H PRN IV NAUSEA AND/OR VOMITING Last administered on 06/07/16 10:37; Admin Dose 4 MG; Start 05/30/16 at 19:30 Nitroglycerin (Nitroglycerin 0.4 Mg/Hr) 1 patch DAILY PRN TRANSDERM CHEST PAIN ; Start 06/01/16 at 16:30 Insulin Glargine (Lantus) 10 unit DAILY@08 SC Last administered on 06/09/16 08 :58; Admin Dose 10 UNIT; Start 06/02/16 at 08:00 Nitroglycerin 1 tab 1 tab Q5M PRN SL ANGINA Last administered on 06/06/16 17: 26; Admin Dose 1 TAB; Start 06/02/16 at 17:30 Metronidazole (Flagyl 500 Mg (Pmx)) 100 ml @ 100 mls/hr Q8 IVPB Last administered on 06/09/16 13:52; Admin Dose 100 MLS/HR; Start 06/05/16 at 11:00 Amikacin Sulfate (Amikacin Iv Per Pharmacy) AMIKACIN PER PHARMACY NOTE XX ; Start 06/05/16 at 17:00 Phenol 1 lozenge 1 lozenge Q4H PRN [place] sore throat Last administered on 23:33; Admin Dose 1 LOZENGE; Start 06/06/16 at 18:30 Vancomycin HCl/ Sodium Chloride (Vancocin/NS) 150 ml @ 75 mls/hr Q96H IVPB Last administered on 06/09/16 16:38; Admin Dose 75 MLS/HR; Start 06/09/16 at 15 :00 ANNAMARIE SANTANA Jun 09, 2016 17:49
[2016-06-09] MEDS: LATANOPROST 0.005% 2.5 ML OPH BOTH EYES SCH (21:04)
[2016-06-09] MEDS: HYDROmorphONE 2 MG TAB PO PRN (23:21)
[2016-06-10] VITALS (10 sets, daily range): BP systolic 88–131; BP diastolic 50–63; PULSE 76–92; RESP 16–20
[2016-06-10] MEDS: ALBUTEROL/IPRATROPIUM (NEB) 3 ML AMP INH SCH ×4 (01:32→20:38)
[2016-06-10] MEDS: metroNIDAZOLE 500 MG/NS (PMX) 100 ML IVPB SCH ×3 (06:25→22:56)
[2016-06-10] MEDS: PANTOPRAZOLE (EC) 40 MG TAB PO SCH (06:25)
[2016-06-10] MEDS: INSULIN GLARGINE [LANtus] 3 ML PEN SC SCH (08:00)
[2016-06-10] MEDS: INSULIN ASPART [NOVOLOG] 3 ML PEN SC SCH ×4 (08:00→21:00)
--- NOTE | 2016-06-10 08:52 | CONS ---
Date/Time of Note Date/Time of Note DATE: 06/10/16 TIME: 08:50 Assessment/Plan Assessment/Plan Additional Assessment/Plan 1. Positive troponin, assess significance. No sig uptrend and lexiscan this admit negative for ischemia - no CP now, in satble fluid satus - no intervention currently planned. 2. Shortness of breath, assess for congestive heart failure - better, HD to remove fluid. 3. Abnormal electrocardiogram. Assess for acute coronary syndrome. 4. Pneumonia by chest x-ray and chest CT - on anti-Bx now. 5. Chest mass and hilar lymphadenopathy.-by CT posssibly only infiltrate and not mass - primary team follows. 6. End-stage renal disease on hemodialysis- Rx as neede. 7. Leukocytosis. 8. Anemia. 9. Cardiomyopathy-LVEF 45% by echo - no indication for ICD. Consultation Date/Type/Reason Admit Date/Time May 29, 2016 at 14:54 Type of Consultation: Cardiology Referring Provider: MICHELLE MCDANIEL MD 24 HR Interval Summary Free Text/Dictation NO acute events - in good fluid satus - no significant ectopy on tele. ROS: No fever, no chills, no nausea, no vomiting, no diarrhea/constipation No recent weight changes No chest pain, no PND, no orthopnea No dizziness, blurred vision No thirst, no heat or cold intolerance Exam/Review of Systems Vital Signs Vitals Vital Signs Date Time Temp Pulse Resp B/P Pulse Ox O2 Delivery O2 Flow Rate FiO2 06/10/16 08:17 98.5 94 20 129/62 96 06/10/16 01:34 21 06/09/16 20:30 Nasal Cannula 2.0 Intake and Output 06/09/16 06/09/16 06/10/16 15:00 23:00 07:00 Intake Total 1250 ml Output Total 2100 ml Balance -850 ml Exam General: WN/WD/NAD, AOx 2-3 HEENT: Unicetric/atraumatic/EOMI (follow commands) NECK: JVD elevated, no thyromegaly Lymph: no lymphadenopathy HEART: regular with no S3, II/ systolic murmur at apex LUNGS: Coarse sounds ABD: soft, NT, ND, +BS : Intact Neuro: non focal SKIN: chronic changes EXT: trace edema Results Result Diagram: 06/06/16 0648 06/08/16 0707 Results 24 hrs Laboratory Tests Test 06/09/16 11:50 06/09/16 16:51 06/09/16 20:14 Bedside Glucose 108 98 117 Medications Medications Current Medications Amlodipine Besylate (Norvasc) 10 mg DAILY PO Last administered on 06/09/16 08: 29; Admin Dose 10 MG; Start 05/30/16 at 09:00 Latanoprost (Xalatan) 1 drop HS BOTH EYES Last administered on 06/09/16 21:04 ; Admin Dose 1 DROP; Start 05/29/16 at 21:00 Clonidine (Catapres) 0.1 mg TID PO Last administered on 06/06/16 23:21; Admin Dose 0.1 MG; Start 05/29/16 at 21:00 Fluoxetine HCl (Prozac) 20 mg DAILY PO Last administered on 06/09/16 08:29; Admin Dose 20 MG; Start 05/30/16 at 09:00 Gabapentin (Neurontin) 100 mg TID PO Last administered on 06/09/16 21:05; Admin Dose 100 MG; Start 05/29/16 at 21:00 Hydralazine HCl (Apresoline) 50 mg TID PO Last administered on 06/05/16 21:55; Admin Dose 50 MG; Start 05/29/16 at 21:00 Hydromorphone HCl (Dilaudid) 2 mg Q4H PRN PO PAIN Last administered on 23:21; Admin Dose 2 MG; Start 05/29/16 at 18:00 Losartan Potassium (Cozaar) 50 mg DAILY PO Last administered on 06/09/16 08:29 ; Admin Dose 50 MG; Start 05/30/16 at 09:00 Methocarbamol (Robaxin) 500 mg DAILY PO Last administered on 06/09/16 08:30; Admin Dose 500 MG; Start 05/30/16 at 09:00 Acetaminophen (Tylenol Tab) 650 mg Q6H PRN PO PAIN LEVEL 1-3 OR FEVER Last administered on 06/09/16 17:24; Admin Dose 650 MG; Start 05/29/16 at 18:00 Docusate Sodium (Colace) 100 mg Q12H PRN PO CONSTIPATION; Start 05/29/16 at 18: 00 Magnesium Hydroxide (Milk Of Mag) 30 ml DAILY PRN PO CONSTIPATION; Start at 18:00 Bisacodyl (Dulcolax) 5 mg DAILY PRN PO CONSTIPATION; Start 05/29/16 at 18:00 Pantoprazole (Protonix Tab) 40 mg DAILY@06 PO Last administered on 06/10/16 06 :25; Admin Dose 40 MG; Start 05/30/16 at 06:00 Enoxaparin Sodium (Lovenox) 30 mg DAILY SC Last administered on 06/09/16 08:35 ; Admin Dose 30 MG; Start 05/30/16 at 09:00 Miscellaneous Information 1 ea NOTE XX ; Start 05/29/16 at 19:00 Glucose (Glutose) 15 gm Q15M PRN PO DECREASED GLUCOSE; Start 05/29/16 at 19:00 Glucose (Glutose) 22.5 gm Q15M PRN PO DECREASED GLUCOSE; Start 05/29/16 at 19:00 Dextrose (D50w Syringe) 25 ml Q15M PRN IV DECREASED GLUCOSE; Start 05/29/16 at 19:00 Dextrose (D50w Syringe) 50 ml Q15M PRN IV DECREASED GLUCOSE; Start 05/29/16 at 19:00 Glucagon (Glucagen) 1 mg Q15M PRN IM DECREASED GLUCOSE; Start 05/29/16 at 19:00 Glucose (Glutose) 15 gm Q15M PRN BUCCAL DECREASED GLUCOSE; Start 05/29/16 at 19: 00 Hydralazine HCl (Apresoline) 20 mg Q6H PRN IV sbp >170 Last administered on 05/30 09:21; Admin Dose 20 MG; Start 05/30/16 at 09:30 Acetaminophen (Tylenol Supp) 650 mg Q6H PRN [place] fever Last administered on 09:17; Admin Dose 650 MG; Start 05/30/16 at 10:30 Metoprolol Tartrate (Lopressor) 25 mg BID PO Last administered on 06/09/16 08: 30; Admin Dose 25 MG; Start 05/30/16 at 21:00 Aspirin 81 mg 81 mg DAILY PO Last administered on 06/09/16 08:29; Admin Dose 81 MG; Start 05/31/16 at 09:00 Ondansetron HCl/ Dextrose (Zofran Inj/D5W) 54 ml @ 108 mls/hr Q6H PRN IV NAUSEA AND/OR VOMITING; Start 05/30/16 at 19:00 Ondansetron HCl (Zofran Inj) 4 mg Q6H PRN IV NAUSEA AND/OR VOMITING Last administered on 06/07/16 10:37; Admin Dose 4 MG; Start 05/30/16 at 19:30 Nitroglycerin (Nitroglycerin 0.4 Mg/Hr) 1 patch DAILY PRN TRANSDERM CHEST PAIN ; Start 06/01/16 at 16:30 Insulin Glargine (Lantus) 10 unit DAILY@08 SC Last administered on 06/09/16 08 :58; Admin Dose 10 UNIT; Start 06/02/16 at 08:00 Nitroglycerin 1 tab 1 tab Q5M PRN SL ANGINA Last administered on 06/06/16 17: 26; Admin Dose 1 TAB; Start 06/02/16 at 17:30 Metronidazole (Flagyl 500 Mg (Pmx)) 100 ml @ 100 mls/hr Q8 IVPB Last administered on 06/10/16 06:25; Admin Dose 100 MLS/HR; Start 06/05/16 at 11:00 Amikacin Sulfate (Amikacin Iv Per Pharmacy) AMIKACIN PER PHARMACY NOTE XX ; Start 06/05/16 at 17:00 Phenol 1 lozenge 1 lozenge Q4H PRN [place] sore throat Last administered on 23:33; Admin Dose 1 LOZENGE; Start 06/06/16 at 18:30 Vancomycin HCl/ Sodium Chloride (Vancocin/NS) 150 ml @ 75 mls/hr Q96H IVPB Last administered on 06/09/16 16:38; Admin Dose 75 MLS/HR; Start 06/09/16 at 15 :00 TOBI CHERRY MD Jun 10, 2016 08:52
[2016-06-10] MEDS: METOPROLOL 25 MG TAB PO SCH ×2 (09:56→21:00)
[2016-06-10] MEDS: CALCIUM ACETATE 667 MG CAP PO SCH ×3 (09:57→17:53)
[2016-06-10] MEDS: FLUOXETINE 20 MG CAP PO SCH (09:57)
[2016-06-10] MEDS: ASPIRIN 81 MG TAB PO SCH (09:57)
[2016-06-10] MEDS: LOSARTAN 50 MG TAB PO SCH (09:57)
[2016-06-10] MEDS: SEVELAMER CARBONATE 0.8 GM PKT PO SCH ×3 (09:57→17:53)
[2016-06-10] MEDS: AMLODIPINE 10 MG TAB PO SCH (09:58)
[2016-06-10] MEDS: GABAPENTIN 100 MG CAP PO SCH ×3 (09:58→22:55)
[2016-06-10] MEDS: METHOCARBAMOL 500 MG TAB PO SCH (09:58)
[2016-06-10] MEDS: ENOXAPARIN 30 MG/0.3 ML SYG SC SCH (10:05)
[2016-06-10] MEDS: AMIKACIN 250 MG in SOD CHLORIDE 0.9% 100 ML IVPB SCH (10:26)
--- NOTE | 2016-06-10 12:58 | CONS ---
Date/Time of Note Date/Time of Note DATE: 06/10/16 TIME: 12:56 Assessment/Plan Assessment/Plan Chief Complaint/Hosp Course SUBJECTIVE: The patient is awake, looks comfortable. Family at bedside. No diarrhea, no fevers. INDWELLINGS: AV fistula, left upper extremity. ANTIMICROBIALS: The patient on: 1. Vancomycin. 2. Amikacin. 3. Flagyl. 4. Oral vancomycin. PHYSICAL EXAMINATION: GENERAL: This is a fragile, elderly woman who is awake, in no distress. HEENT: Head atraumatic, normocephalic. Sclerae anicteric. Buccal mucosa pink. NECK: Supple, trachea midline. CHEST: Rise symmetrical. Breath sounds diminished to bases. HEART: S1, S2. ABDOMEN: Soft, bowel sounds present. EXTREMITIES: Without cyanosis. ASSESSMENT: 1. Resolving leukocytosis. 2. Clostridium difficile colitis. 3. Right upper lobe pneumonia, possibly aspiration, radiographically improving. 4. End-stage renal disease, on hemodialysis. 5. Diabetes. 6. Coronary artery disease. PLAN: The patient remains stable, continues to improve. Continue antibiotics, pulmonary/card/renal rec-s DW staff Problems: Consultation Date/Type/Reason Admit Date/Time May 29, 2016 at 14:54 Type of Consultation: ID Referring Provider: MICHELLE MCDANIEL MD Exam/Review of Systems Vital Signs Vitals Vital Signs Date Time Temp Pulse Resp B/P Pulse Ox O2 Delivery O2 Flow Rate FiO2 06/10/16 12:18 78 06/10/16 11:57 97.4 18 131/63 95 06/10/16 01:34 21 06/09/16 20:30 Nasal Cannula 2.0 Intake and Output 06/09/16 06/09/16 06/10/16 15:00 23:00 07:00 Intake Total 1250 ml Output Total 2100 ml Balance -850 ml Results Result Diagram: 06/06/16 0648 06/08/16 0707 Results 24 hrs Laboratory Tests Test 06/09/16 16:51 06/09/16 20:14 06/10/16 10:08 06/10/16 11:46 Bedside Glucose 98 117 105 106 Medications Medications Current Medications Amlodipine Besylate (Norvasc) 10 mg DAILY PO Last administered on 06/10/16t 09: 58; Admin Dose 10 MG; Start 05/30/16 at 09:00 Latanoprost (Xalatan) 1 drop HS BOTH EYES Last administered on 06/09/16 21:04 ; Admin Dose 1 DROP; Start 05/29/16 at 21:00 Clonidine (Catapres) 0.1 mg TID PO Last administered on 06/10/16 09:57; Admin Dose 0.1 MG; Start 05/29/16 at 21:00 Fluoxetine HCl (Prozac) 20 mg DAILY PO Last administered on 06/10/16 09:57; Admin Dose 20 MG; Start 05/30/16 at 09:00 Gabapentin (Neurontin) 100 mg TID PO Last administered on 06/10/16 09:58; Admin Dose 100 MG; Start 05/29/16 at 21:00 Hydralazine HCl (Apresoline) 50 mg TID PO Last administered on 06/10/16 09:57 ; Admin Dose 50 MG; Start 05/29/16 at 21:00 Hydromorphone HCl (Dilaudid) 2 mg Q4H PRN PO PAIN Last administered on 23:21; Admin Dose 2 MG; Start 05/29/16 at 18:00 Losartan Potassium (Cozaar) 50 mg DAILY PO Last administered on 06/10/16 09:57 ; Admin Dose 50 MG; Start 05/30/16 at 09:00 Methocarbamol (Robaxin) 500 mg DAILY PO Last administered on 06/10/16 09:58; Admin Dose 500 MG; Start 05/30/16 at 09:00 Acetaminophen (Tylenol Tab) 650 mg Q6H PRN PO PAIN LEVEL 1-3 OR FEVER Last administered on 06/09/16 17:24; Admin Dose 650 MG; Start 05/29/16 at 18:00 Docusate Sodium (Colace) 100 mg Q12H PRN PO CONSTIPATION; Start 05/29/16 at 18: 00 Magnesium Hydroxide (Milk Of Mag) 30 ml DAILY PRN PO CONSTIPATION; Start at 18:00 Bisacodyl (Dulcolax) 5 mg DAILY PRN PO CONSTIPATION; Start 05/29/16 at 18:00 Pantoprazole (Protonix Tab) 40 mg DAILY@06 PO Last administered on 06/10/16 06 :25; Admin Dose 40 MG; Start 05/30/16 at 06:00 Enoxaparin Sodium (Lovenox) 30 mg DAILY SC Last administered on 06/10/16 10:05 ; Admin Dose 30 MG; Start 05/30/16 at 09:00 Miscellaneous Information 1 ea NOTE XX ; Start 05/29/16 at 19:00 Glucose (Glutose) 15 gm Q15M PRN PO DECREASED GLUCOSE; Start 05/29/16 at 19:00 Glucose (Glutose) 22.5 gm Q15M PRN PO DECREASED GLUCOSE; Start 05/29/16 at 19:00 Dextrose (D50w Syringe) 25 ml Q15M PRN IV DECREASED GLUCOSE; Start 05/29/16 at 19:00 Dextrose (D50w Syringe) 50 ml Q15M PRN IV DECREASED GLUCOSE; Start 05/29/16 at 19:00 Glucagon (Glucagen) 1 mg Q15M PRN IM DECREASED GLUCOSE; Start 05/29/16 at 19:00 Glucose (Glutose) 15 gm Q15M PRN BUCCAL DECREASED GLUCOSE; Start 05/29/16 at 19: 00 Hydralazine HCl (Apresoline) 20 mg Q6H PRN IV sbp >170 Last administered on 05/30 09:21; Admin Dose 20 MG; Start 05/30/16 at 09:30 Acetaminophen (Tylenol Supp) 650 mg Q6H PRN [place] fever Last administered on 09:17; Admin Dose 650 MG; Start 05/30/16 at 10:30 Metoprolol Tartrate (Lopressor) 25 mg BID PO Last administered on 06/10/16 09: 56; Admin Dose 25 MG; Start 05/30/16 at 21:00 Aspirin 81 mg 81 mg DAILY PO Last administered on 06/10/16 09:57; Admin Dose 81 MG; Start 05/31/16 at 09:00 Ondansetron HCl/ Dextrose (Zofran Inj/D5W) 54 ml @ 108 mls/hr Q6H PRN IV NAUSEA AND/OR VOMITING; Start 05/30/16 at 19:00 Ondansetron HCl (Zofran Inj) 4 mg Q6H PRN IV NAUSEA AND/OR VOMITING Last administered on 06/07/16 10:37; Admin Dose 4 MG; Start 05/30/16 at 19:30 Nitroglycerin (Nitroglycerin 0.4 Mg/Hr) 1 patch DAILY PRN TRANSDERM CHEST PAIN ; Start 06/01/16 at 16:30 Insulin Glargine (Lantus) 10 unit DAILY@08 SC Last administered on 06/09/16 08 :58; Admin Dose 10 UNIT; Start 06/02/16 at 08:00 Nitroglycerin 1 tab 1 tab Q5M PRN SL ANGINA Last administered on 06/06/16 17: 26; Admin Dose 1 TAB; Start 06/02/16 at 17:30 Metronidazole (Flagyl 500 Mg (Pmx)) 100 ml @ 100 mls/hr Q8 IVPB Last administered on 06/10/16 06:25; Admin Dose 100 MLS/HR; Start 06/05/16 at 11:00 Amikacin Sulfate (Amikacin Iv Per Pharmacy) AMIKACIN PER PHARMACY NOTE XX ; Start 06/05/16 at 17:00 Phenol 1 lozenge 1 lozenge Q4H PRN [place] sore throat Last administered on 23:33; Admin Dose 1 LOZENGE; Start 06/06/16 at 18:30 Vancomycin HCl/ Sodium Chloride (Vancocin/NS) 150 ml @ 75 mls/hr Q96H IVPB Last administered on 06/09/16 16:38; Admin Dose 75 MLS/HR; Start 06/09/16 at 15 :00 PAULA CHANEL NP Jun 10, 2016 12:58
--- NOTE | 2016-06-10 14:02 | PN ---
Date/Time of Note Date/Time of Note DATE: 06/10/16 TIME: 14:00 Assessment/Plan VTE Prophylaxis VTE Prophylaxis Intervention: SCD's, other Assessment/Plan Chief Complaint/Hosp Course VTE Prophylaxis VTE Prophylaxis Intervention: other Assessment/Plan Problems: (1) Congestive heart failure Status: Chronic Qualifiers: Congestive heart failure type: systolic (2) Shortness of breath Status: Acute (3) Hypertensive emergency Status: Acute (4) Hyperkalemia Status: Acute (5) Lung mass Status: Acute (6) Diabetic gastroparesis Status: Chronic (7) ESRD (end stage renal disease) Status: Chronic [id number] cont supportive care hd per plan [id number] dc plan [id number] pt on iv abx dc plan once awitched to oral abx Problems: Exam/Review of Systems Vital Signs Vitals Vital Signs Date Time Temp Pulse Resp B/P Pulse Ox O2 Delivery O2 Flow Rate FiO2 06/10/16 12:18 78 06/10/16 11:57 97.4 18 131/63 95 06/10/16 01:34 21 06/09/16 20:30 Nasal Cannula 2.0 Intake and Output 06/09/16 06/09/16 06/10/16 15:00 23:00 07:00 Intake Total 1250 ml Output Total 2100 ml Balance -850 ml Exam Constitutional: other Head: normocephalic Eyes: nl conjunctiva Neck: supple Respiratory: clear to auscultation Cardiovascular: regular rate and rhythm Gastrointestinal: soft Musculoskeletal: nl extremities to inspection Results Result Diagram: 06/06/16 0648 06/08/16 0707 Results 24 hrs Laboratory Tests Test 06/09/16 16:51 06/09/16 20:14 06/10/16 10:08 06/10/16 11:46 Bedside Glucose 98 117 105 106 Medications Medications Current Medications Amlodipine Besylate (Norvasc) 10 mg DAILY PO Last administered on 06/10/16 09: 58; Admin Dose 10 MG; Start 05/30/16 at 09:00 Latanoprost (Xalatan) 1 drop HS BOTH EYES Last administered on 06/09/16 21:04 ; Admin Dose 1 DROP; Start 05/29/16 at 21:00 Clonidine (Catapres) 0.1 mg TID PO Last administered on 06/10/16 13:59; Admin Dose 0.1 MG; Start 05/29/16 at 21:00 Fluoxetine HCl (Prozac) 20 mg DAILY PO Last administered on 06/10/16 09:57; Admin Dose 20 MG; Start 05/30/16 at 09:00 Gabapentin (Neurontin) 100 mg TID PO Last administered on 06/10/16 13:59; Admin Dose 100 MG; Start 05/29/16 at 21:00 Hydralazine HCl (Apresoline) 50 mg TID PO Last administered on 06/10/16 13:59 ; Admin Dose 50 MG; Start 05/29/16 at 21:00 Hydromorphone HCl (Dilaudid) 2 mg Q4H PRN PO PAIN Last administered on 23:21; Admin Dose 2 MG; Start 05/29/16 at 18:00 Losartan Potassium (Cozaar) 50 mg DAILY PO Last administered on 06/10/16 09:57 ; Admin Dose 50 MG; Start 05/30/16 at 09:00 Methocarbamol (Robaxin) 500 mg DAILY PO Last administered on 06/10/16 09:58; Admin Dose 500 MG; Start 05/30/16 at 09:00 Acetaminophen (Tylenol Tab) 650 mg Q6H PRN PO PAIN LEVEL 1-3 OR FEVER Last administered on 06/09/16 17:24; Admin Dose 650 MG; Start 05/29/16 at 18:00 Docusate Sodium (Colace) 100 mg Q12H PRN PO CONSTIPATION; Start 05/29/16 at 18: 00 Magnesium Hydroxide (Milk Of Mag) 30 ml DAILY PRN PO CONSTIPATION; Start at 18:00 Bisacodyl (Dulcolax) 5 mg DAILY PRN PO CONSTIPATION; Start 05/29/16 at 18:00 Pantoprazole (Protonix Tab) 40 mg DAILY@06 PO Last administered on 06/10/16 06 :25; Admin Dose 40 MG; Start 05/30/16 at 06:00 Enoxaparin Sodium (Lovenox) 30 mg DAILY SC Last administered on 06/10/16 10:05 ; Admin Dose 30 MG; Start 05/30/16 at 09:00 Miscellaneous Information 1 ea NOTE XX ; Start 05/29/16 at 19:00 Glucose (Glutose) 15 gm Q15M PRN PO DECREASED GLUCOSE; Start 05/29/16 at 19:00 Glucose (Glutose) 22.5 gm Q15M PRN PO DECREASED GLUCOSE; Start 05/29/16 at 19:00 Dextrose (D50w Syringe) 25 ml Q15M PRN IV DECREASED GLUCOSE; Start 05/29/16 at 19:00 Dextrose (D50w Syringe) 50 ml Q15M PRN IV DECREASED GLUCOSE; Start 05/29/16 at 19:00 Glucagon (Glucagen) 1 mg Q15M PRN IM DECREASED GLUCOSE; Start 05/29/16 at 19:00 Glucose (Glutose) 15 gm Q15M PRN BUCCAL DECREASED GLUCOSE; Start 05/29/16 at 19: 00 Hydralazine HCl (Apresoline) 20 mg Q6H PRN IV sbp >170 Last administered on 05/30 09:21; Admin Dose 20 MG; Start 05/30/16 at 09:30 Acetaminophen (Tylenol Supp) 650 mg Q6H PRN [place] fever Last administered on 09:17; Admin Dose 650 MG; Start 05/30/16 at 10:30 Metoprolol Tartrate (Lopressor) 25 mg BID PO Last administered on 06/10/16 09: 56; Admin Dose 25 MG; Start 05/30/16 at 21:00 Aspirin 81 mg 81 mg DAILY PO Last administered on 06/10/16 09:57; Admin Dose 81 MG; Start 05/31/16 at 09:00 Ondansetron HCl/ Dextrose (Zofran Inj/D5W) 54 ml @ 108 mls/hr Q6H PRN IV NAUSEA AND/OR VOMITING; Start 05/30/16 at 19:00 Ondansetron HCl (Zofran Inj) 4 mg Q6H PRN IV NAUSEA AND/OR VOMITING Last administered on 06/07/16 10:37; Admin Dose 4 MG; Start 05/30/16 at 19:30 Nitroglycerin (Nitroglycerin 0.4 Mg/Hr) 1 patch DAILY PRN TRANSDERM CHEST PAIN ; Start 06/01/16 at 16:30 Insulin Glargine (Lantus) 10 unit DAILY@08 SC Last administered on 06/09/16 08 :58; Admin Dose 10 UNIT; Start 06/02/16 at 08:00 Nitroglycerin 1 tab 1 tab Q5M PRN SL ANGINA Last administered on 06/06/16 17: 26; Admin Dose 1 TAB; Start 06/02/16 at 17:30 Metronidazole (Flagyl 500 Mg (Pmx)) 100 ml @ 100 mls/hr Q8 IVPB Last administered on 06/10/16 13:58; Admin Dose 100 MLS/HR; Start 06/05/16 at 11:00 Amikacin Sulfate (Amikacin Iv Per Pharmacy) AMIKACIN PER PHARMACY NOTE XX ; Start 06/05/16 at 17:00 Phenol 1 lozenge 1 lozenge Q4H PRN MT sore throat Last administered on 23:33; Admin Dose 1 LOZENGE; Start 06/06/16 at 18:30 Vancomycin HCl/ Sodium Chloride (Vancocin/NS) 150 ml @ 75 mls/hr Q96H IVPB Last administered on 06/09/16 16:38; Admin Dose 75 MLS/HR; Start 06/09/16 at 15 :00 SEAN PLAZA MD Jun 10, 2016 14:02
--- NOTE | 2016-06-10 15:52 | PN ---
DATE: 06/10/2016 SUBJECTIVE: This patient had no significant events. She remains stable at present. Decreased coug h still has significant weakness. OBJECTIVE VITAL SIGNS: Temperature 98, pulse is 70, blood pressure 131/63, O2 saturation 96% on 21% O2. HEENT: Pupils equal and reactive to light. CARDIAC: S1, S2, no added sounds or murmurs. CHEST: Diminished air entry bilaterally. ABDOMEN: Soft, nontender. No guarding or rebound. EXTREMITIES: No cyanosis, clubbing, 1+ edema. NEUROLOGIC: Generalized weakness. LABORATORY DATA: Pending at time of this dictation. IMPRESSION AND PLAN: 1. Resolving right upper lobe pneumonia. 2. Possible aspiration syndrome. PLAN: Discharge planning per primary to follow up with me in the office. Dictated By: EHSAN MENDIOLA/YAHIR Conf#: [id number] DID#: [id number]
[2016-06-10] MEDS: LATANOPROST 0.005% 2.5 ML OPH BOTH EYES SCH (21:00)
[2016-06-11] VITALS (19 sets, daily range): BP systolic 96–123; BP diastolic 44–69; PULSE 65–84; RESP 16–22
[2016-06-11] MEDS: ALBUTEROL/IPRATROPIUM (NEB) 3 ML AMP INH SCH ×4 (02:23→20:48)
[2016-06-11] MEDS: metroNIDAZOLE 500 MG/NS (PMX) 100 ML IVPB SCH ×3 (06:39→22:57)
[2016-06-11] MEDS: PANTOPRAZOLE (EC) 40 MG TAB PO SCH (06:39)
[2016-06-11 07:56] LABS: ALBUMIN 3.5 g/dl (3.3-4.9)
[2016-06-11 07:57] LABS: POTASSIUM 4.8 mmol/L (3.5-5.1)
[2016-06-11 07:58] LABS: CREATININE 6.28 mg/dl (0.44-1.00)
[2016-06-11 07:59] LABS: ALBUMIN/GLOBULIN RATIO 1.29; CALCIUM 8.2 mg/dl (8.4-10.2); TOTAL PROTEIN 6.2 g/dl (6.1-8.1)
[2016-06-11] MEDS: INSULIN ASPART [NOVOLOG] 3 ML PEN SC SCH ×4 (08:00→21:00)
[2016-06-11] MEDS: FLUOXETINE 20 MG CAP PO SCH (09:23)
[2016-06-11] MEDS: METHOCARBAMOL 500 MG TAB PO SCH (09:23)
[2016-06-11] MEDS: ASPIRIN 81 MG TAB PO SCH (09:24)
[2016-06-11] MEDS: LOSARTAN 50 MG TAB PO SCH (09:24)
[2016-06-11] MEDS: CALCIUM ACETATE 667 MG CAP PO SCH ×3 (09:24→17:37)
[2016-06-11] MEDS: AMLODIPINE 10 MG TAB PO SCH (09:25)
[2016-06-11] MEDS: GABAPENTIN 100 MG CAP PO SCH ×3 (09:25→21:00)
[2016-06-11] MEDS: SEVELAMER CARBONATE 0.8 GM PKT PO SCH ×3 (09:25→17:37)
[2016-06-11] MEDS: METOPROLOL 25 MG TAB PO SCH ×2 (09:25→21:00)
[2016-06-11] MEDS: ENOXAPARIN 30 MG/0.3 ML SYG SC SCH (09:28)
[2016-06-11] MEDS: INSULIN GLARGINE [LANtus] 3 ML PEN SC SCH (09:28)
--- NOTE | 2016-06-11 11:21 | PN ---
DATE: REASON FOR FOLLOWUP: Resolving pneumonia. SUBJECTIVE: Mrs. Lipscomb remains stable this morning. Denies any shortness of breath. PHYSICAL EXAMINATION VITAL SIGNS: Temperature 98, pulse is 83, blood pressure 112/53, O2 saturation 96% on 2 L nasal can nula. NECK: Supple. No JVD or lymphadenopathy. CARDIAC: S1, S2, no added sounds or murmurs. CHEST: Diminished air entry bilaterally. ABDOMEN: Soft, nontender. No guarding or rebound. EXTREMITIES: No cyanosis, clubbing, edema. NEUROLOGIC: Generalized weakness. LABORATORY DATA: White count not drawn. Chemistry: BUN 66, creatinine 6.28. IMPRESSION AND PLAN: 1. Resolved pneumonia. 2. End-stage renal failure on hemodialysis. 3. History of deconditioning. PLAN: 1. Continue dialysis. 2. Discharge planning okay from pulmonary standpoint, I will only follow as needed at this point. Dictated By: EHSAN MENDIOLA/YAHIR Conf#: [id number] DID#: [id number]
--- NOTE | 2016-06-11 13:24 | CONS ---
Date/Time of Note Date/Time of Note DATE: 06/11/16 TIME: 13:23 Assessment/Plan Assessment/Plan Chief Complaint/Hosp Course SUBJECTIVE: The patient is awake, looks comfortable. Family at bedside. No diarrhea, no fevers. INDWELLINGS: AV fistula, left upper extremity. ANTIMICROBIALS: The patient on: 1. Vancomycin. 2. Amikacin. 3. Flagyl. 4. Oral vancomycin. PHYSICAL EXAMINATION: GENERAL: This is a fragile, elderly woman who is awake, in no distress. HEENT: Head atraumatic, normocephalic. Sclerae anicteric. Buccal mucosa pink. NECK: Supple, trachea midline. CHEST: Rise symmetrical. Breath sounds diminished to bases. HEART: S1, S2. ABDOMEN: Soft, bowel sounds present. EXTREMITIES: Without cyanosis. ASSESSMENT: 1. Resolving leukocytosis. 2. Clostridium difficile colitis. 3. Right upper lobe pneumonia, possibly aspiration==> resolving. 4. End-stage renal disease, on hemodialysis. 5. Diabetes. 6. Coronary artery disease. PLAN: The patient remains stable. Continue antibiotics, pulmonary/card/renal rec-s. Ok dc on PO Vancomycin for 3 weeks and PO Levaquin for 10 more days when medically cleared [facility] staff Problems: Consultation Date/Type/Reason Admit Date/Time May 29, 2016 at 14:54 Type of Consultation: ID Referring Provider: MICHELLE MCDANIEL MD Exam/Review of Systems Vital Signs Vitals Vital Signs Date Time Temp Pulse Resp B/P Pulse Ox O2 Delivery O2 Flow Rate FiO2 06/11/16 12:08 74 06/11/16 11:44 98.2 22 113/54 96 06/11/16 08:33 2.0 06/11/16 02:27 21 06/09/16 20:30 Nasal Cannula Intake and Output 06/10/16 06/10/16 06/11/16 15:00 23:00 07:00 Intake Total 451 ml 480 ml 250 ml Balance 451 ml 480 ml 250 ml Results Result Diagram: 06/11/16 0633 Results 24 hrs Laboratory Tests Test 06/10/16 17:30 06/10/16 21:18 06/11/16 06:33 06/11/16 07:56 Bedside Glucose 157 140 133 Alanine Aminotransferase (ALT/SGPT) 31 Albumin 3.5 Albumin/Globulin Ratio 1.29 Alkaline Phosphatase 94 Anion Gap 23 H Aspartate Amino Transf (AST/SGOT) 39 Blood Urea Nitrogen 66 H Calcium Level 8.2 L Carbon Dioxide Level 22 Chloride Level 91 L Creatinine 6.28 H Direct Bilirubin 0.00 Globulin 2.70 Glucose Level 138 Indirect Bilirubin 0.0 Potassium Level 4.8 Sodium Level 131 L Total Bilirubin 0.0 L Total Protein 6.2 Test 06/11/16 12:33 Bedside Glucose 151 Medications Medications Current Medications Amlodipine Besylate (Norvasc) 10 mg DAILY PO Last administered on 06/11/16 09: 25; Admin Dose 10 MG; Start 05/30/16 at 09:00 Latanoprost (Xalatan) 1 drop HS BOTH EYES Last administered on 06/10/16 21:00 ; Admin Dose 1 DROP; Start 05/29/16 at 21:00 Clonidine (Catapres) 0.1 mg TID PO Last administered on 06/11/16 12:40; Admin Dose 0.1 MG; Start 05/29/16 at 21:00 Fluoxetine HCl (Prozac) 20 mg DAILY PO Last administered on 06/11/16 09:23; Admin Dose 20 MG; Start 05/30/16 at 09:00 Gabapentin (Neurontin) 100 mg TID PO Last administered on 06/11/16 12:49; Admin Dose 100 MG; Start 05/29/16 at 21:00 Hydralazine HCl (Apresoline) 50 mg TID PO Last administered on 06/11/16 12:40 ; Admin Dose 50 MG; Start 05/29/16 at 21:00 Hydromorphone HCl (Dilaudid) 2 mg Q4H PRN PO PAIN Last administered on 23:21; Admin Dose 2 MG; Start 05/29/16 at 18:00 Losartan Potassium (Cozaar) 50 mg DAILY PO Last administered on 06/11/16 09:24 ; Admin Dose 50 MG; Start 05/30/16 at 09:00 Methocarbamol (Robaxin) 500 mg DAILY PO Last administered on 06/11/16 09:23; Admin Dose 500 MG; Start 05/30/16 at 09:00 Acetaminophen (Tylenol Tab) 650 mg Q6H PRN PO PAIN LEVEL 1-3 OR FEVER Last administered on 06/09/16 17:24; Admin Dose 650 MG; Start 05/29/16 at 18:00 Docusate Sodium (Colace) 100 mg Q12H PRN PO CONSTIPATION; Start 05/29/16 at 18: 00 Magnesium Hydroxide (Milk Of Mag) 30 ml DAILY PRN PO CONSTIPATION; Start at 18:00 Bisacodyl (Dulcolax) 5 mg DAILY PRN PO CONSTIPATION; Start 05/29/16 at 18:00 Pantoprazole (Protonix Tab) 40 mg DAILY@06 PO Last administered on 06/11/16 06 :39; Admin Dose 40 MG; Start 05/30/16 at 06:00 Enoxaparin Sodium (Lovenox) 30 mg DAILY SC Last administered on 06/11/16 09:28 ; Admin Dose 30 MG; Start 05/30/16 at 09:00 Miscellaneous Information 1 ea NOTE XX ; Start 05/29/16 at 19:00 Glucose (Glutose) 15 gm Q15M PRN PO DECREASED GLUCOSE; Start 05/29/16 at 19:00 Glucose (Glutose) 22.5 gm Q15M PRN PO DECREASED GLUCOSE; Start 05/29/16 at 19:00 Dextrose (D50w Syringe) 25 ml Q15M PRN IV DECREASED GLUCOSE; Start 05/29/16 at 19:00 Dextrose (D50w Syringe) 50 ml Q15M PRN IV DECREASED GLUCOSE; Start 05/29/16 at 19:00 Glucagon (Glucagen) 1 mg Q15M PRN IM DECREASED GLUCOSE; Start 05/29/16 at 19:00 Glucose (Glutose) 15 gm Q15M PRN BUCCAL DECREASED GLUCOSE; Start 05/29/16 at 19: 00 Hydralazine HCl (Apresoline) 20 mg Q6H PRN IV sbp >170 Last administered on 05/30 09:21; Admin Dose 20 MG; Start 05/30/16 at 09:30 Acetaminophen (Tylenol Supp) 650 mg Q6H PRN [place] fever Last administered on 09:17; Admin Dose 650 MG; Start 05/30/16 at 10:30 Metoprolol Tartrate (Lopressor) 25 mg BID PO Last administered on 06/11/16 09: 25; Admin Dose 25 MG; Start 05/30/16 at 21:00 Aspirin 81 mg 81 mg DAILY PO Last administered on 06/11/16 09:24; Admin Dose 81 MG; Start 05/31/16 at 09:00 Ondansetron HCl/ Dextrose (Zofran Inj/D5W) 54 ml @ 108 mls/hr Q6H PRN IV NAUSEA AND/OR VOMITING; Start 05/30/16 at 19:00 Ondansetron HCl (Zofran Inj) 4 mg Q6H PRN IV NAUSEA AND/OR VOMITING Last administered on 06/07/16 10:37; Admin Dose 4 MG; Start 05/30/16 at 19:30 Nitroglycerin (Nitroglycerin 0.4 Mg/Hr) 1 patch DAILY PRN TRANSDERM CHEST PAIN ; Start 06/01/16 at 16:30 Insulin Glargine (Lantus) 10 unit DAILY@08 SC Last administered on 06/11/16 09 :28; Admin Dose 10 UNIT; Start 06/02/16 at 08:00 Nitroglycerin 1 tab 1 tab Q5M PRN SL ANGINA Last administered on 06/06/16 17: 26; Admin Dose 1 TAB; Start 06/02/16 at 17:30 Metronidazole (Flagyl 500 Mg (Pmx)) 100 ml @ 100 mls/hr Q8 IVPB Last administered on 06/11/16 06:39; Admin Dose 100 MLS/HR; Start 06/05/16 at 11:00 Amikacin Sulfate (Amikacin Iv Per Pharmacy) AMIKACIN PER PHARMACY NOTE XX ; Start 06/05/16 at 17:00 Phenol 1 lozenge 1 lozenge Q4H PRN [place] sore throat Last administered on 23:33; Admin Dose 1 LOZENGE; Start 06/06/16 at 18:30 Vancomycin HCl/ Sodium Chloride (Vancocin/NS) 150 ml @ 75 mls/hr Q96H IVPB Last administered on 06/09/16 16:38; Admin Dose 75 MLS/HR; Start 06/09/16 at 15 :00 PAULA CHANEL NP Jun 11, 2016 13:24
[2016-06-11] MEDS: ACETAMINOPHEN 325 MG TAB PO PRN (13:48)
--- NOTE | 2016-06-11 13:56 | CONS ---
Date/Time of Note Date/Time of Note DATE: 06/11/16 TIME: 13:52 Assessment/Plan Assessment/Plan Chief Complaint/Hosp Course IMPRESSION: 1. Positive troponin, assess significance. No sig uptrend and lexiscan this admit negative for ischemia 2. Shortness of breath, assess for congestive heart failure. 3. Abnormal electrocardiogram. Assess for acute coronary syndrome. 4. Pneumonia by chest x-ray and chest CT. 5. Chest mass and hilar lymphadenopathy.-by CT posssibly only infiltrate and not mass 6. End-stage renal disease on hemodialysis. 7. Leukocytosis. 8. Anemia. 9. Cardiomyopathy-LVEF 45% by echo Recc: -Tele -Continue abx;'s and f/u cx data -Continue asa -Continue norvasc/clonidine/BB/losartan/hydralazine and follow BP closely -PRN SL NTG for recurrent chest pain -HD for volume removal Problems: Consultation Date/Type/Reason Admit Date/Time May 29, 2016 at 14:54 Initial Consult Date 05/30/2016 Type of Consultation: Cardiology Reason for Consultation Positive troponin Referring Provider: MICHELLE MCDANIEL MD Exam/Review of Systems Vital Signs Vitals Vital Signs Date Time Temp Pulse Resp B/P Pulse Ox O2 Delivery O2 Flow Rate FiO2 06/11/16 12:08 74 06/11/16 11:44 98.2 22 113/54 96 06/11/16 08:33 2.0 06/11/16 02:27 21 06/09/16 20:30 Nasal Cannula Intake and Output 06/10/16 06/10/16 06/11/16 15:00 23:00 07:00 Intake Total 451 ml 480 ml 250 ml Balance 451 ml 480 ml 250 ml Exam Review of Systems: CONSTITUTIONAL: No fevers, chills. PULMONARY: No sob CARDIOVASCULAR: No chest pain/palpitations GASTROINTESTINAL: No nausea/vomiting. GENITOURINARY: No hematuria/dysuria. MUSCULOSKELETAL: No myagias/arthalgias. PSYCHIATRIC: The patient denies depression. NEUROLOGIC: No weakness Constitutional: alert, oriented Psych: no complaints ENMT: mucosa pink and moist Neck: jvd, supple Respiratory: diminished breath sounds Cardiovascular: regular rate and rhythm Gastrointestinal: non-tender, soft Musculoskeletal: muscle tone Extremities: edema (none), normal pulses Neurological: other (No focal deficits) Results Result Diagram: 06/11/16 0633 Results 24 hrs Laboratory Tests Test 06/10/16 17:30 06/10/16 21:18 06/11/16 06:33 06/11/16 07:56 Bedside Glucose 157 140 133 Alanine Aminotransferase (ALT/SGPT) 31 Albumin 3.5 Albumin/Globulin Ratio 1.29 Alkaline Phosphatase 94 Anion Gap 23 H Aspartate Amino Transf (AST/SGOT) 39 Blood Urea Nitrogen 66 H Calcium Level 8.2 L Carbon Dioxide Level 22 Chloride Level 91 L Creatinine 6.28 H Direct Bilirubin 0.00 Globulin 2.70 Glucose Level 138 Indirect Bilirubin 0.0 Potassium Level 4.8 Sodium Level 131 L Total Bilirubin 0.0 L Total Protein 6.2 Test 06/11/16 12:33 Bedside Glucose 151 Medications Medications Current Medications Amlodipine Besylate (Norvasc) 10 mg DAILY PO Last administered on 06/11/16 09: 25; Admin Dose 10 MG; Start 05/30/16 at 09:00 Latanoprost (Xalatan) 1 drop HS BOTH EYES Last administered on 06/10/16 21:00 ; Admin Dose 1 DROP; Start 05/29/16 at 21:00 Clonidine (Catapres) 0.1 mg TID PO Last administered on 06/11/16 12:40; Admin Dose 0.1 MG; Start 05/29/16 at 21:00 Fluoxetine HCl (Prozac) 20 mg DAILY PO Last administered on 06/11/16 09:23; Admin Dose 20 MG; Start 05/30/16 at 09:00 Gabapentin (Neurontin) 100 mg TID PO Last administered on 06/11/16 12:49; Admin Dose 100 MG; Start 05/29/16 at 21:00 Hydralazine HCl (Apresoline) 50 mg TID PO Last administered on 06/11/16 12:40 ; Admin Dose 50 MG; Start 05/29/16 at 21:00 Hydromorphone HCl (Dilaudid) 2 mg Q4H PRN PO PAIN Last administered on 23:21; Admin Dose 2 MG; Start 05/29/16 at 18:00 Losartan Potassium (Cozaar) 50 mg DAILY PO Last administered on 06/11/16 09:24 ; Admin Dose 50 MG; Start 05/30/16 at 09:00 Methocarbamol (Robaxin) 500 mg DAILY PO Last administered on 06/11/16 09:23; Admin Dose 500 MG; Start 05/30/16 at 09:00 Acetaminophen (Tylenol Tab) 650 mg Q6H PRN PO PAIN LEVEL 1-3 OR FEVER Last administered on 06/11/16 13:48; Admin Dose 650 MG; Start 05/29/16 at 18:00 Docusate Sodium (Colace) 100 mg Q12H PRN PO CONSTIPATION; Start 05/29/16 at 18: 00 Magnesium Hydroxide (Milk Of Mag) 30 ml DAILY PRN PO CONSTIPATION; Start at 18:00 Bisacodyl (Dulcolax) 5 mg DAILY PRN PO CONSTIPATION; Start 05/29/16 at 18:00 Pantoprazole (Protonix Tab) 40 mg DAILY@06 PO Last administered on 06/11/16 06 :39; Admin Dose 40 MG; Start 05/30/16 at 06:00 Enoxaparin Sodium (Lovenox) 30 mg DAILY SC Last administered on 06/11/16 09:28 ; Admin Dose 30 MG; Start 05/30/16 at 09:00 Miscellaneous Information 1 ea NOTE XX ; Start 05/29/16 at 19:00 Glucose (Glutose) 15 gm Q15M PRN PO DECREASED GLUCOSE; Start 05/29/16 at 19:00 Glucose (Glutose) 22.5 gm Q15M PRN PO DECREASED GLUCOSE; Start 05/29/16 at 19:00 Dextrose (D50w Syringe) 25 ml Q15M PRN IV DECREASED GLUCOSE; Start 05/29/16 at 19:00 Dextrose (D50w Syringe) 50 ml Q15M PRN IV DECREASED GLUCOSE; Start 05/29/16 at 19:00 Glucagon (Glucagen) 1 mg Q15M PRN IM DECREASED GLUCOSE; Start 05/29/16 at 19:00 Glucose (Glutose) 15 gm Q15M PRN BUCCAL DECREASED GLUCOSE; Start 05/29/16 at 19: 00 Hydralazine HCl (Apresoline) 20 mg Q6H PRN IV sbp >170 Last administered on 05/30 09:21; Admin Dose 20 MG; Start 05/30/16 at 09:30 Acetaminophen (Tylenol Supp) 650 mg Q6H PRN [place] fever Last administered on 09:17; Admin Dose 650 MG; Start 05/30/16 at 10:30 Metoprolol Tartrate (Lopressor) 25 mg BID PO Last administered on 06/11/16 09: 25; Admin Dose 25 MG; Start 05/30/16 at 21:00 Aspirin 81 mg 81 mg DAILY PO Last administered on 06/11/16 09:24; Admin Dose 81 MG; Start 05/31/16 at 09:00 Ondansetron HCl/ Dextrose (Zofran Inj/D5W) 54 ml @ 108 mls/hr Q6H PRN IV NAUSEA AND/OR VOMITING; Start 05/30/16 at 19:00 Ondansetron HCl (Zofran Inj) 4 mg Q6H PRN IV NAUSEA AND/OR VOMITING Last administered on 06/07/16 10:37; Admin Dose 4 MG; Start 05/30/16 at 19:30 Nitroglycerin (Nitroglycerin 0.4 Mg/Hr) 1 patch DAILY PRN TRANSDERM CHEST PAIN ; Start 06/01/16 at 16:30 Insulin Glargine (Lantus) 10 unit DAILY@08 SC Last administered on 06/11/16 09 :28; Admin Dose 10 UNIT; Start 06/02/16 at 08:00 Nitroglycerin 1 tab 1 tab Q5M PRN SL ANGINA Last administered on 06/06/16 17: 26; Admin Dose 1 TAB; Start 06/02/16 at 17:30 Metronidazole (Flagyl 500 Mg (Pmx)) 100 ml @ 100 mls/hr Q8 IVPB Last administered on 06/11/16 13:43; Admin Dose 100 MLS/HR; Start 06/05/16 at 11:00 Amikacin Sulfate (Amikacin Iv Per Pharmacy) AMIKACIN PER PHARMACY NOTE XX ; Start 06/05/16 at 17:00 Phenol 1 lozenge 1 lozenge Q4H PRN MT sore throat Last administered on 23:33; Admin Dose 1 LOZENGE; Start 06/06/16 at 18:30 Vancomycin HCl/ Sodium Chloride (Vancocin/NS) 150 ml @ 75 mls/hr Q96H IVPB Last administered on 06/09/16 16:38; Admin Dose 75 MLS/HR; Start 06/09/16 at 15 :00 ANNAMARIE SANTANA Jun 11, 2016 13:56
[2016-06-11] MEDS ORDERED: [UNRECOGNIZED DRUG - REMARK] XX SCH (18:00)
--- NOTE | 2016-06-11 19:20 | PN ---
Date/Time of Note Date/Time of Note DATE: 06/11/16 TIME: 19:18 Assessment/Plan VTE Prophylaxis VTE Prophylaxis Intervention: other Assessment/Plan Chief Complaint/Hosp Course VTE Prophylaxis VTE Prophylaxis Intervention: other Assessment/Plan Problems: (1) Congestive heart failure Status: Chronic Qualifiers: Congestive heart failure type: systolic (2) Shortness of breath Status: Acute (3) Hypertensive emergency Status: Acute (4) Hyperkalemia Status: Acute (5) Lung mass Status: Acute (6) Diabetic gastroparesis Status: Chronic (7) ESRD (end stage renal disease) Status: Chronic [id number] cont supportive care hd per plan [id number] dc plan [id number] pt on iv abx dc plan once awitched to oral abx [id number] on iv abx cont plan/hd Problems: Exam/Review of Systems Vital Signs Vitals Vital Signs Date Time Temp Pulse Resp B/P Pulse Ox O2 Delivery O2 Flow Rate FiO2 06/11/16 16:12 68 06/11/16 15:45 98.1 18 97/53 94 06/11/16 14:08 2.0 06/11/16 02:27 21 06/09/16 20:30 Nasal Cannula Intake and Output 06/10/16 06/10/16 06/11/16 15:00 23:00 07:00 Intake Total 451 ml 480 ml 250 ml Balance 451 ml 480 ml 250 ml Exam Head: normocephalic Eyes: EOMI Neck: supple Respiratory: clear to auscultation Cardiovascular: regular rate and rhythm Gastrointestinal: soft Results Result Diagram: 06/11/16 0633 Results 24 hrs Laboratory Tests Test 06/10/16 21:18 06/11/16 06:33 06/11/16 07:56 06/11/16 12:33 Bedside Glucose 140 133 151 Alanine Aminotransferase (ALT/SGPT) 31 Albumin 3.5 Albumin/Globulin Ratio 1.29 Alkaline Phosphatase 94 Anion Gap 23 H Aspartate Amino Transf (AST/SGOT) 39 Blood Urea Nitrogen 66 H Calcium Level 8.2 L Carbon Dioxide Level 22 Chloride Level 91 L Creatinine 6.28 H Direct Bilirubin 0.00 Globulin 2.70 Glucose Level 138 Indirect Bilirubin 0.0 Potassium Level 4.8 Sodium Level 131 L Total Bilirubin 0.0 L Total Protein 6.2 Test 06/11/16 17:20 Bedside Glucose 161 Medications Medications Current Medications Amlodipine Besylate (Norvasc) 10 mg DAILY PO Last administered on 06/11/16 09: 25; Admin Dose 10 MG; Start 05/30/16 at 09:00 Latanoprost (Xalatan) 1 drop HS BOTH EYES Last administered on 06/10/16 21:00 ; Admin Dose 1 DROP; Start 05/29/16 at 21:00 Clonidine (Catapres) 0.1 mg TID PO Last administered on 06/11/16 12:40; Admin Dose 0.1 MG; Start 05/29/16 at 21:00 Fluoxetine HCl (Prozac) 20 mg DAILY PO Last administered on 06/11/16 09:23; Admin Dose 20 MG; Start 05/30/16 at 09:00 Gabapentin (Neurontin) 100 mg TID PO Last administered on 06/11/16 12:49; Admin Dose 100 MG; Start 05/29/16 at 21:00 Hydralazine HCl (Apresoline) 50 mg TID PO Last administered on 06/11/16 12:40 ; Admin Dose 50 MG; Start 05/29/16 at 21:00 Hydromorphone HCl (Dilaudid) 2 mg Q4H PRN PO PAIN Last administered on 23:21; Admin Dose 2 MG; Start 05/29/16 at 18:00 Losartan Potassium (Cozaar) 50 mg DAILY PO Last administered on 06/11/16 09:24 ; Admin Dose 50 MG; Start 05/30/16 at 09:00 Methocarbamol (Robaxin) 500 mg DAILY PO Last administered on 06/11/16 09:23; Admin Dose 500 MG; Start 05/30/16 at 09:00 Acetaminophen (Tylenol Tab) 650 mg Q6H PRN PO PAIN LEVEL 1-3 OR FEVER Last administered on 06/11/16 13:48; Admin Dose 650 MG; Start 05/29/16 at 18:00 Docusate Sodium (Colace) 100 mg Q12H PRN PO CONSTIPATION; Start 05/29/16 at 18: 00 Magnesium Hydroxide (Milk Of Mag) 30 ml DAILY PRN PO CONSTIPATION; Start at 18:00 Bisacodyl (Dulcolax) 5 mg DAILY PRN PO CONSTIPATION; Start 05/29/16 at 18:00 Pantoprazole (Protonix Tab) 40 mg DAILY@06 PO Last administered on 06/11/16 06 :39; Admin Dose 40 MG; Start 05/30/16 at 06:00 Enoxaparin Sodium (Lovenox) 30 mg DAILY SC Last administered on 06/11/16 09:28 ; Admin Dose 30 MG; Start 05/30/16 at 09:00 Miscellaneous Information 1 ea NOTE XX ; Start 05/29/16 at 19:00 Glucose (Glutose) 15 gm Q15M PRN PO DECREASED GLUCOSE; Start 05/29/16 at 19:00 Glucose (Glutose) 22.5 gm Q15M PRN PO DECREASED GLUCOSE; Start 05/29/16 at 19:00 Dextrose (D50w Syringe) 25 ml Q15M PRN IV DECREASED GLUCOSE; Start 05/29/16 at 19:00 Dextrose (D50w Syringe) 50 ml Q15M PRN IV DECREASED GLUCOSE; Start 05/29/16 at 19:00 Glucagon (Glucagen) 1 mg Q15M PRN IM DECREASED GLUCOSE; Start 05/29/16 at 19:00 Glucose (Glutose) 15 gm Q15M PRN BUCCAL DECREASED GLUCOSE; Start 05/29/16 at 19: 00 Hydralazine HCl (Apresoline) 20 mg Q6H PRN IV sbp >170 Last administered on 05/30 09:21; Admin Dose 20 MG; Start 05/30/16 at 09:30 Acetaminophen (Tylenol Supp) 650 mg Q6H PRN [place] fever Last administered on 09:17; Admin Dose 650 MG; Start 05/30/16 at 10:30 Metoprolol Tartrate (Lopressor) 25 mg BID PO Last administered on 06/11/16 09: 25; Admin Dose 25 MG; Start 05/30/16 at 21:00 Aspirin 81 mg 81 mg DAILY PO Last administered on 06/11/16 09:24; Admin Dose 81 MG; Start 05/31/16 at 09:00 Ondansetron HCl/ Dextrose (Zofran Inj/D5W) 54 ml @ 108 mls/hr Q6H PRN IV NAUSEA AND/OR VOMITING; Start 05/30/16 at 19:00 Ondansetron HCl (Zofran Inj) 4 mg Q6H PRN IV NAUSEA AND/OR VOMITING Last administered on 06/07/16 10:37; Admin Dose 4 MG; Start 05/30/16 at 19:30 Nitroglycerin (Nitroglycerin 0.4 Mg/Hr) 1 patch DAILY PRN TRANSDERM CHEST PAIN ; Start 06/01/16 at 16:30 Insulin Glargine (Lantus) 10 unit DAILY@08 SC Last administered on 06/11/16 09 :28; Admin Dose 10 UNIT; Start 06/02/16 at 08:00 Nitroglycerin 1 tab 1 tab Q5M PRN SL ANGINA Last administered on 06/06/16 17: 26; Admin Dose 1 TAB; Start 06/02/16 at 17:30 Metronidazole (Flagyl 500 Mg (Pmx)) 100 ml @ 100 mls/hr Q8 IVPB Last administered on 06/11/16 13:43; Admin Dose 100 MLS/HR; Start 06/05/16 at 11:00 Amikacin Sulfate (Amikacin Iv Per Pharmacy) AMIKACIN PER PHARMACY NOTE XX ; Start 06/05/16 at 17:00 Phenol 1 lozenge 1 lozenge Q4H PRN [place] sore throat Last administered on 23:33; Admin Dose 1 LOZENGE; Start 06/06/16 at 18:30 Vancomycin HCl/ Sodium Chloride (Vancocin/NS) 150 ml @ 75 mls/hr Q96H IVPB Last administered on 06/09/16 16:38; Admin Dose 75 MLS/HR; Start 06/09/16 at 15 :00 Miscellaneous Information 1 ea NOTE XX ; Start 06/11/16 at 18:00; Stop 06/11/16 at 23:45 SEAN PLAZA MD Jun 11, 2016 19:20
[2016-06-11] MEDS: LATANOPROST 0.005% 2.5 ML OPH BOTH EYES SCH (21:00)
[2016-06-11] MEDS: AMIKACIN 250 MG in SOD CHLORIDE 0.9% 100 ML IVPB SCH (22:57)
[2016-06-12] VITALS (10 sets, daily range): BP systolic 94–124; BP diastolic 51–58; PULSE 75–83; RESP 18–20
[2016-06-12] MEDS: ALBUTEROL/IPRATROPIUM (NEB) 3 ML AMP INH SCH ×3 (01:13→13:24)
[2016-06-12] MEDS: PANTOPRAZOLE (EC) 40 MG TAB PO SCH (05:37)
[2016-06-12] MEDS: metroNIDAZOLE 500 MG/NS (PMX) 100 ML IVPB SCH ×2 (05:37→16:14)
[2016-06-12] MEDS: FLUOXETINE 20 MG CAP PO SCH (09:00)
[2016-06-12] MEDS: METHOCARBAMOL 500 MG TAB PO SCH (09:52)
[2016-06-12] MEDS: ASPIRIN 81 MG TAB PO SCH (09:52)
[2016-06-12] MEDS: SEVELAMER CARBONATE 0.8 GM PKT PO SCH ×2 (09:52→12:36)
[2016-06-12] MEDS: CALCIUM ACETATE 667 MG CAP PO SCH ×2 (09:53→12:36)
[2016-06-12] MEDS: LOSARTAN 50 MG TAB PO SCH (09:53)
[2016-06-12] MEDS: AMLODIPINE 10 MG TAB PO SCH (09:54)
[2016-06-12] MEDS: METOPROLOL 25 MG TAB PO SCH (09:54)
[2016-06-12] MEDS: GABAPENTIN 100 MG CAP PO SCH ×2 (09:54→12:36)
[2016-06-12] MEDS: ENOXAPARIN 30 MG/0.3 ML SYG SC SCH (10:04)
[2016-06-12] MEDS: INSULIN GLARGINE [LANtus] 3 ML PEN SC SCH (10:04)
[2016-06-12] MEDS: INSULIN ASPART [NOVOLOG] 3 ML PEN SC SCH ×2 (10:05→12:41)
--- NOTE | 2016-06-12 12:43 | PN ---
DATE: 06/12/2016 PULMONARY FOLLOWUP SUBJECTIVE: Ms. Lipscomb is stable this morning on room air. OBJECTIVE: VITAL SIGNS: Temperature 98, pulse 80, blood pressure 119/56, O2 saturation 96% on room air. NECK: Supple, no JVD or lymphadenopathy. CARDIAC: S1, S2, no added sounds or murmurs. CHEST: Diminished air entry bilaterally. ABDOMEN: Soft, nontender. No guarding or rebound. EXTREMITIES: No cyanosis, clubbing, edema. NEUROLOGIC: Generalized weakness. No focal deficits. IMPRESSION AND PLAN: 1. Status post respiratory failure. 2. Resolving right upper lobe pneumonia. 3. Deconditioning. 4. End-stage renal failure, on hemodialysis. PLAN: 1. Continue hemodialysis. 2. Aspiration precautions. 3. Consider stopping antibiotics. 4. No further pulmonary recommendations at this point. I will sign off, follow as needed. Dictated By: EHSAN MENDIOLA/YAHIR Conf#: [id number] DID#: [id number]
--- NOTE | 2016-06-12 12:57 | PDOCDIS ---
Discharge Instructions CONDITION Patient Condition: Good HOME CARE INSTRUCTIONS: Diet Instructions: Special Diet: LOW FAT LOW CHLOLESTROL/ RENAL/ CARB CONTROLLED ACTIVITY: Activity Restrictions: Slowly Increase Activity Avoid heavy lifting FOLLOW UP/APPOINTMENTS Appointments f/u dr smiley 1 wk see pcp 1 wk go to dialysis center as schedule MICHELLE MCDANIEL MD Jun 12, 2016 12:57
[2016-06-12] MEDS ORDERED: VANC250C12 PO (13:05)
[2016-06-12] MEDS ORDERED: LEVO250T9 PO (13:05)
--- NOTE | 2016-06-12 13:41 | CONS ---
Date/Time of Note Date/Time of Note DATE: 06/12/16 TIME: 13:41 Assessment/Plan Assessment/Plan Chief Complaint/Hosp Course SUBJECTIVE: The patient is awake, looks comfortable. Family at bedside. No diarrhea, no fevers. INDWELLINGS: AV fistula, left upper extremity. ANTIMICROBIALS: The patient on: 1. Vancomycin. 2. Amikacin. 3. Flagyl. 4. Oral vancomycin. PHYSICAL EXAMINATION: GENERAL: This is a fragile, elderly woman who is awake, in no distress. HEENT: Head atraumatic, normocephalic. Sclerae anicteric. Buccal mucosa pink. NECK: Supple, trachea midline. CHEST: Rise symmetrical. Breath sounds diminished to bases. HEART: S1, S2. ABDOMEN: Soft, bowel sounds present. EXTREMITIES: Without cyanosis. ASSESSMENT: 1. Resolving leukocytosis. 2. Clostridium difficile colitis. 3. Right upper lobe pneumonia, possibly aspiration==> resolving. 4. End-stage renal disease, on hemodialysis. 5. Diabetes. 6. Coronary artery disease. PLAN: The patient remains stable. Ok dc on PO Vancomycin for 3 weeks and PO Levaquin for 10 more days when medically cleared [facility] staff Problems: Consultation Date/Type/Reason Admit Date/Time May 29, 2016 at 14:54 Type of Consultation: ID Referring Provider: MICHELLE MCDANIEL MD Exam/Review of Systems Vital Signs Vitals Vital Signs Date Time Temp Pulse Resp B/P Pulse Ox O2 Delivery O2 Flow Rate FiO2 06/12/16 12:21 82 06/12/16 11:25 97.9 20 119/56 97 06/12/16 08:23 21 06/12/16 05:43 Room Air 06/12/16 04:58 2.0 Intake and Output 06/11/16 06/11/16 06/12/16 15:00 23:00 07:00 Intake Total 600 ml 480 ml 500 ml Output Total 1500 ml Balance -900 ml 480 ml 500 ml Results Result Diagram: 06/11/16 0633 Results 24 hrs Laboratory Tests Test 06/11/16 17:20 06/11/16 22:41 06/12/16 07:58 06/12/16 11:40 Bedside Glucose 161 88 150 228 H Medications Medications Current Medications Amlodipine Besylate (Norvasc) 10 mg DAILY PO Last administered on 06/12/16t 09: 54; Admin Dose 10 MG; Start 05/30/16 at 09:00 Latanoprost (Xalatan) 1 drop HS BOTH EYES Last administered on 06/11/16 21:00 ; Admin Dose 1 DROP; Start 05/29/16 at 21:00 Clonidine (Catapres) 0.1 mg TID PO Last administered on 06/12/16 12:36; Admin Dose 0.1 MG; Start 05/29/16 at 21:00 Fluoxetine HCl (Prozac) 20 mg DAILY PO Last administered on 06/12/16 09:00; Admin Dose 20 MG; Start 05/30/16 at 09:00 Gabapentin (Neurontin) 100 mg TID PO Last administered on 06/12/16 12:36; Admin Dose 100 MG; Start 05/29/16 at 21:00 Hydralazine HCl (Apresoline) 50 mg TID PO Last administered on 06/12/16 12:36 ; Admin Dose 50 MG; Start 05/29/16 at 21:00 Hydromorphone HCl (Dilaudid) 2 mg Q4H PRN PO PAIN Last administered on 23:21; Admin Dose 2 MG; Start 05/29/16 at 18:00 Losartan Potassium (Cozaar) 50 mg DAILY PO Last administered on 06/12/16 09:53 ; Admin Dose 50 MG; Start 05/30/16 at 09:00 Methocarbamol (Robaxin) 500 mg DAILY PO Last administered on 06/12/16 09:52; Admin Dose 500 MG; Start 05/30/16 at 09:00 Acetaminophen (Tylenol Tab) 650 mg Q6H PRN PO PAIN LEVEL 1-3 OR FEVER Last administered on 06/11/16 13:48; Admin Dose 650 MG; Start 05/29/16 at 18:00 Docusate Sodium (Colace) 100 mg Q12H PRN PO CONSTIPATION; Start 05/29/16 at 18: 00 Magnesium Hydroxide (Milk Of Mag) 30 ml DAILY PRN PO CONSTIPATION; Start at 18:00 Bisacodyl (Dulcolax) 5 mg DAILY PRN PO CONSTIPATION; Start 05/29/16 at 18:00 Pantoprazole (Protonix Tab) 40 mg DAILY@06 PO Last administered on 06/12/16 05 :37; Admin Dose 40 MG; Start 05/30/16 at 06:00 Enoxaparin Sodium (Lovenox) 30 mg DAILY SC Last administered on 06/12/16 10:04 ; Admin Dose 30 MG; Start 05/30/16 at 09:00 Miscellaneous Information 1 ea NOTE XX ; Start 05/29/16 at 19:00 Glucose (Glutose) 15 gm Q15M PRN PO DECREASED GLUCOSE; Start 05/29/16 at 19:00 Glucose (Glutose) 22.5 gm Q15M PRN PO DECREASED GLUCOSE; Start 05/29/16 at 19:00 Dextrose (D50w Syringe) 25 ml Q15M PRN IV DECREASED GLUCOSE; Start 05/29/16 at 19:00 Dextrose (D50w Syringe) 50 ml Q15M PRN IV DECREASED GLUCOSE; Start 05/29/16 at 19:00 Glucagon (Glucagen) 1 mg Q15M PRN IM DECREASED GLUCOSE; Start 05/29/16 at 19:00 Glucose (Glutose) 15 gm Q15M PRN BUCCAL DECREASED GLUCOSE; Start 05/29/16 at 19: 00 Hydralazine HCl (Apresoline) 20 mg Q6H PRN IV sbp >170 Last administered on 05/30 09:21; Admin Dose 20 MG; Start 05/30/16 at 09:30 Acetaminophen (Tylenol Supp) 650 mg Q6H PRN [place] fever Last administered on 09:17; Admin Dose 650 MG; Start 05/30/16 at 10:30 Metoprolol Tartrate (Lopressor) 25 mg BID PO Last administered on 06/12/16 09: 54; Admin Dose 25 MG; Start 05/30/16 at 21:00 Aspirin 81 mg 81 mg DAILY PO Last administered on 06/12/16 09:52; Admin Dose 81 MG; Start 05/31/16 at 09:00 Ondansetron HCl/ Dextrose (Zofran Inj/D5W) 54 ml @ 108 mls/hr Q6H PRN IV NAUSEA AND/OR VOMITING; Start 05/30/16 at 19:00 Ondansetron HCl (Zofran Inj) 4 mg Q6H PRN IV NAUSEA AND/OR VOMITING Last administered on 06/07/16 10:37; Admin Dose 4 MG; Start 05/30/16 at 19:30 Nitroglycerin (Nitroglycerin 0.4 Mg/Hr) 1 patch DAILY PRN TRANSDERM CHEST PAIN ; Start 06/01/16 at 16:30 Insulin Glargine (Lantus) 10 unit DAILY@08 SC Last administered on 06/12/16 10 :04; Admin Dose 10 UNIT; Start 06/02/16 at 08:00 Nitroglycerin 1 tab 1 tab Q5M PRN SL ANGINA Last administered on 06/06/16 17: 26; Admin Dose 1 TAB; Start 06/02/16 at 17:30 Metronidazole (Flagyl 500 Mg (Pmx)) 100 ml @ 100 mls/hr Q8 IVPB Last administered on 06/12/16 05:37; Admin Dose 100 MLS/HR; Start 06/05/16 at 11:00 Amikacin Sulfate (Amikacin Iv Per Pharmacy) AMIKACIN PER PHARMACY NOTE XX ; Start 06/05/16 at 17:00 Phenol 1 lozenge 1 lozenge Q4H PRN MT sore throat Last administered on 23:33; Admin Dose 1 LOZENGE; Start 06/06/16 at 18:30 Vancomycin HCl/ Sodium Chloride (Vancocin/NS) 150 ml @ 75 mls/hr Q96H IVPB Last administered on 06/09/16 16:38; Admin Dose 75 MLS/HR; Start 06/09/16 at 15 :00 PAULA CHANEL NP Jun 12, 2016 13:41
--- NOTE | 2016-06-12 15:22 | PN ---
Date/Time of Note Date/Time of Note DATE: 06/12/16 TIME: 15:21 Assessment/Plan VTE Prophylaxis VTE Prophylaxis Intervention: other Lines/Catheters IV [facility] Assessment/Plan Chief Complaint/Hosp Course IMPRESSION: 1. Patient has pneumonia.better 2. Lung mass.better 3. Pulmonary edema.better 4. The patient has hypertension, diabetes mellitus, leukocytosis, , anemia, atherosclerotic heart disease, positive troponin. 5 sepsis 6 lexiscan neg 7 c diff better plan hd per cardio pulmonary antibiotic per id home Problems: Subjective 24 Hr Interval Summary Cardiovascular: no complaints Gastrointestinal: No diarrhea Exam/Review of Systems Vital Signs Vitals Vital Signs Date Time Temp Pulse Resp B/P Pulse Ox O2 Delivery O2 Flow Rate FiO2 06/12/16 12:21 82 06/12/16 11:25 97.9 20 119/56 97 06/12/16 08:23 21 06/12/16 05:43 Room Air 06/12/16 04:58 2.0 Intake and Output 06/11/16 06/11/16 06/12/16 15:00 23:00 07:00 Intake Total 600 ml 480 ml 500 ml Output Total 1500 ml Balance -900 ml 480 ml 500 ml Exam Neck: supple Respiratory: clear to auscultation Cardiovascular: regular rate and rhythm Gastrointestinal: soft Musculoskeletal: nl extremities to inspection Results Result Diagram: 06/11/16 0633 Results 24 hrs Laboratory Tests Test 06/11/16 17:20 06/11/16 22:41 06/12/16 07:58 06/12/16 11:40 Bedside Glucose 161 88 150 228 H Medications Medications Current Medications Amlodipine Besylate (Norvasc) 10 mg DAILY PO Last administered on 06/12/16 09: 54; Admin Dose 10 MG; Start 05/30/16 at 09:00 Latanoprost (Xalatan) 1 drop HS BOTH EYES Last administered on 06/11/16 21:00 ; Admin Dose 1 DROP; Start 05/29/16 at 21:00 Clonidine (Catapres) 0.1 mg TID PO Last administered on 06/12/16 12:36; Admin Dose 0.1 MG; Start 05/29/16 at 21:00 Fluoxetine HCl (Prozac) 20 mg DAILY PO Last administered on 06/12/16 09:00; Admin Dose 20 MG; Start 05/30/16 at 09:00 Gabapentin (Neurontin) 100 mg TID PO Last administered on 06/12/16 12:36; Admin Dose 100 MG; Start 05/29/16 at 21:00 Hydralazine HCl (Apresoline) 50 mg TID PO Last administered on 06/12/16 12:36 ; Admin Dose 50 MG; Start 05/29/16 at 21:00 Hydromorphone HCl (Dilaudid) 2 mg Q4H PRN PO PAIN Last administered on 23:21; Admin Dose 2 MG; Start 05/29/16 at 18:00 Losartan Potassium (Cozaar) 50 mg DAILY PO Last administered on 06/12/16 09:53 ; Admin Dose 50 MG; Start 05/30/16 at 09:00 Methocarbamol (Robaxin) 500 mg DAILY PO Last administered on 06/12/16 09:52; Admin Dose 500 MG; Start 05/30/16 at 09:00 Acetaminophen (Tylenol Tab) 650 mg Q6H PRN PO PAIN LEVEL 1-3 OR FEVER Last administered on 06/11/16 13:48; Admin Dose 650 MG; Start 05/29/16 at 18:00 Docusate Sodium (Colace) 100 mg Q12H PRN PO CONSTIPATION; Start 05/29/16 at 18: 00 Magnesium Hydroxide (Milk Of Mag) 30 ml DAILY PRN PO CONSTIPATION; Start at 18:00 Bisacodyl (Dulcolax) 5 mg DAILY PRN PO CONSTIPATION; Start 05/29/16 at 18:00 Pantoprazole (Protonix Tab) 40 mg DAILY@06 PO Last administered on 06/12/16 05 :37; Admin Dose 40 MG; Start 05/30/16 at 06:00 Enoxaparin Sodium (Lovenox) 30 mg DAILY SC Last administered on 06/12/16 10:04 ; Admin Dose 30 MG; Start 05/30/16 at 09:00 Miscellaneous Information 1 ea NOTE XX ; Start 05/29/16 at 19:00 Glucose (Glutose) 15 gm Q15M PRN PO DECREASED GLUCOSE; Start 05/29/16 at 19:00 Glucose (Glutose) 22.5 gm Q15M PRN PO DECREASED GLUCOSE; Start 05/29/16 at 19:00 Dextrose (D50w Syringe) 25 ml Q15M PRN IV DECREASED GLUCOSE; Start 05/29/16 at 19:00 Dextrose (D50w Syringe) 50 ml Q15M PRN IV DECREASED GLUCOSE; Start 05/29/16 at 19:00 Glucagon (Glucagen) 1 mg Q15M PRN IM DECREASED GLUCOSE; Start 05/29/16 at 19:00 Glucose (Glutose) 15 gm Q15M PRN BUCCAL DECREASED GLUCOSE; Start 05/29/16 at 19: 00 Hydralazine HCl (Apresoline) 20 mg Q6H PRN IV sbp >170 Last administered on 05/30 09:21; Admin Dose 20 MG; Start 05/30/16 at 09:30 Acetaminophen (Tylenol Supp) 650 mg Q6H PRN IN fever Last administered on 09:17; Admin Dose 650 MG; Start 05/30/16 at 10:30 Metoprolol Tartrate (Lopressor) 25 mg BID PO Last administered on 06/12/16 09: 54; Admin Dose 25 MG; Start 05/30/16 at 21:00 Aspirin 81 mg 81 mg DAILY PO Last administered on 06/12/16 09:52; Admin Dose 81 MG; Start 05/31/16 at 09:00 Ondansetron HCl/ Dextrose (Zofran Inj/D5W) 54 ml @ 108 mls/hr Q6H PRN IV NAUSEA AND/OR VOMITING; Start 05/30/16 at 19:00 Ondansetron HCl (Zofran Inj) 4 mg Q6H PRN IV NAUSEA AND/OR VOMITING Last administered on 06/07/16 10:37; Admin Dose 4 MG; Start 05/30/16 at 19:30 Nitroglycerin (Nitroglycerin 0.4 Mg/Hr) 1 patch DAILY PRN TRANSDERM CHEST PAIN ; Start 06/01/16 at 16:30 Insulin Glargine (Lantus) 10 unit DAILY@08 SC Last administered on 06/12/16 10 :04; Admin Dose 10 UNIT; Start 06/02/16 at 08:00 Nitroglycerin 1 tab 1 tab Q5M PRN SL ANGINA Last administered on 06/06/16 17: 26; Admin Dose 1 TAB; Start 06/02/16 at 17:30 Metronidazole (Flagyl 500 Mg (Pmx)) 100 ml @ 100 mls/hr Q8 IVPB Last administered on 06/12/16 05:37; Admin Dose 100 MLS/HR; Start 06/05/16 at 11:00 Amikacin Sulfate (Amikacin Iv Per Pharmacy) AMIKACIN PER PHARMACY NOTE XX ; Start 06/05/16 at 17:00 Phenol 1 lozenge 1 lozenge Q4H PRN MT sore throat Last administered on 23:33; Admin Dose 1 LOZENGE; Start 06/06/16 at 18:30 Vancomycin HCl/ Sodium Chloride (Vancocin/NS) 150 ml @ 75 mls/hr Q96H IVPB Last administered on 06/09/16 16:38; Admin Dose 75 MLS/HR; Start 06/09/16 at 15 :00 MICHELLE MCDANIEL MD Jun 12, 2016 15:21
--- NOTE | 2016-06-12 17:50 | CONS ---
Date/Time of Note Date/Time of Note DATE: 06/12/16 TIME: 17:49 Assessment/Plan Assessment/Plan Chief Complaint/Hosp Course IMPRESSION: 1. Positive troponin, assess significance. No sig uptrend and lexiscan this admit negative for ischemia 2. Shortness of breath, assess for congestive heart failure. 3. Abnormal electrocardiogram. Assess for acute coronary syndrome. 4. Pneumonia by chest x-ray and chest CT. 5. Chest mass and hilar lymphadenopathy.-by CT posssibly only infiltrate and not mass 6. End-stage renal disease on hemodialysis. 7. Leukocytosis. 8. Anemia. 9. Cardiomyopathy-LVEF 45% by echo Recc: -Tele -Continue abx;'s and f/u cx data -Continue asa -Continue norvasc/clonidine/BB/losartan/hydralazine and follow BP closely -PRN SL NTG for recurrent chest pain -HD for volume removal -D/C planning Problems: Consultation Date/Type/Reason Admit Date/Time May 29, 2016 at 14:54 Initial Consult Date 05/30/2016 Type of Consultation: Cardiology Reason for Consultation positive troponin Referring Provider: MICHELLE MCDANIEL MD Exam/Review of Systems Vital Signs Vitals Vital Signs Date Time Temp Pulse Resp B/P Pulse Ox O2 Delivery O2 Flow Rate FiO2 06/12/16 16:57 75 06/12/16 15:00 98.5 20 94/52 98 06/12/16 08:23 21 06/12/16 05:43 Room Air 06/12/16 04:58 2.0 Intake and Output 06/11/16 06/11/16 06/12/16 15:00 23:00 07:00 Intake Total 600 ml 480 ml 500 ml Output Total 1500 ml Balance -900 ml 480 ml 500 ml Exam Review of Systems: CONSTITUTIONAL: No fevers, chills. PULMONARY: No sob CARDIOVASCULAR: No chest pain/palpitations GASTROINTESTINAL: No nausea/vomiting. GENITOURINARY: No hematuria/dysuria. MUSCULOSKELETAL: No myagias/arthalgias. PSYCHIATRIC: The patient denies depression. NEUROLOGIC: lethargic Constitutional: alert Psych: no complaints Head: normocephalic ENMT: mucosa pink and moist Neck: jvd (8-9 cm water), supple Respiratory: diminished breath sounds (at bases/B) Cardiovascular: regular rate and rhythm Gastrointestinal: non-tender, soft Musculoskeletal: muscle tone (normal) Extremities: edema (none) Neurological: lethargic Results Result Diagram: 06/11/16 0633 Results 24 hrs Laboratory Tests Test 06/11/16 22:41 06/12/16 07:58 06/12/16 11:40 Bedside Glucose 88 150 228 H Medications Medications Current Medications Amlodipine Besylate (Norvasc) 10 mg DAILY PO Last administered on 06/12/16 09: 54; Admin Dose 10 MG; Start 05/30/16 at 09:00 Latanoprost (Xalatan) 1 drop HS BOTH EYES Last administered on 06/11/16 21:00 ; Admin Dose 1 DROP; Start 05/29/16 at 21:00 Clonidine (Catapres) 0.1 mg TID PO Last administered on 06/12/16 12:36; Admin Dose 0.1 MG; Start 05/29/16 at 21:00 Fluoxetine HCl (Prozac) 20 mg DAILY PO Last administered on 06/12/16 09:00; Admin Dose 20 MG; Start 05/30/16 at 09:00 Gabapentin (Neurontin) 100 mg TID PO Last administered on 06/12/16 12:36; Admin Dose 100 MG; Start 05/29/16 at 21:00 Hydralazine HCl (Apresoline) 50 mg TID PO Last administered on 06/12/16 12:36 ; Admin Dose 50 MG; Start 05/29/16 at 21:00 Hydromorphone HCl (Dilaudid) 2 mg Q4H PRN PO PAIN Last administered on 23:21; Admin Dose 2 MG; Start 05/29/16 at 18:00 Losartan Potassium (Cozaar) 50 mg DAILY PO Last administered on 06/12/16 09:53 ; Admin Dose 50 MG; Start 05/30/16 at 09:00 Methocarbamol (Robaxin) 500 mg DAILY PO Last administered on 06/12/16 09:52; Admin Dose 500 MG; Start 05/30/16 at 09:00 Acetaminophen (Tylenol Tab) 650 mg Q6H PRN PO PAIN LEVEL 1-3 OR FEVER Last administered on 06/11/16 13:48; Admin Dose 650 MG; Start 05/29/16 at 18:00 Docusate Sodium (Colace) 100 mg Q12H PRN PO CONSTIPATION; Start 05/29/16 at 18: 00 Magnesium Hydroxide (Milk Of Mag) 30 ml DAILY PRN PO CONSTIPATION; Start at 18:00 Bisacodyl (Dulcolax) 5 mg DAILY PRN PO CONSTIPATION; Start 05/29/16 at 18:00 Pantoprazole (Protonix Tab) 40 mg DAILY@06 PO Last administered on 06/12/16 05 :37; Admin Dose 40 MG; Start 05/30/16 at 06:00 Enoxaparin Sodium (Lovenox) 30 mg DAILY SC Last administered on 06/12/16 10:04 ; Admin Dose 30 MG; Start 05/30/16 at 09:00 Miscellaneous Information 1 ea NOTE XX ; Start 05/29/16 at 19:00 Glucose (Glutose) 15 gm Q15M PRN PO DECREASED GLUCOSE; Start 05/29/16 at 19:00 Glucose (Glutose) 22.5 gm Q15M PRN PO DECREASED GLUCOSE; Start 05/29/16 at 19:00 Dextrose (D50w Syringe) 25 ml Q15M PRN IV DECREASED GLUCOSE; Start 05/29/16 at 19:00 Dextrose (D50w Syringe) 50 ml Q15M PRN IV DECREASED GLUCOSE; Start 05/29/16 at 19:00 Glucagon (Glucagen) 1 mg Q15M PRN IM DECREASED GLUCOSE; Start 05/29/16 at 19:00 Glucose (Glutose) 15 gm Q15M PRN BUCCAL DECREASED GLUCOSE; Start 05/29/16 at 19: 00 Hydralazine HCl (Apresoline) 20 mg Q6H PRN IV sbp >170 Last administered on 05/30 09:21; Admin Dose 20 MG; Start 05/30/16 at 09:30 Acetaminophen (Tylenol Supp) 650 mg Q6H PRN [place] fever Last administered on 09:17; Admin Dose 650 MG; Start 05/30/16 at 10:30 Metoprolol Tartrate (Lopressor) 25 mg BID PO Last administered on 06/12/16 09: 54; Admin Dose 25 MG; Start 05/30/16 at 21:00 Aspirin 81 mg 81 mg DAILY PO Last administered on 06/12/16 09:52; Admin Dose 81 MG; Start 05/31/16 at 09:00 Ondansetron HCl/ Dextrose (Zofran Inj/D5W) 54 ml @ 108 mls/hr Q6H PRN IV NAUSEA AND/OR VOMITING; Start 05/30/16 at 19:00 Ondansetron HCl (Zofran Inj) 4 mg Q6H PRN IV NAUSEA AND/OR VOMITING Last administered on 06/07/16 10:37; Admin Dose 4 MG; Start 05/30/16 at 19:30 Nitroglycerin (Nitroglycerin 0.4 Mg/Hr) 1 patch DAILY PRN TRANSDERM CHEST PAIN ; Start 06/01/16 at 16:30 Insulin Glargine (Lantus) 10 unit DAILY@08 SC Last administered on 06/12/16 10 :04; Admin Dose 10 UNIT; Start 06/02/16 at 08:00 Nitroglycerin 1 tab 1 tab Q5M PRN SL ANGINA Last administered on 06/06/16 17: 26; Admin Dose 1 TAB; Start 06/02/16 at 17:30 Metronidazole (Flagyl 500 Mg (Pmx)) 100 ml @ 100 mls/hr Q8 IVPB Last administered on 06/12/16 16:14; Admin Dose 100 MLS/HR; Start 06/05/16 at 11:00 Amikacin Sulfate (Amikacin Iv Per Pharmacy) AMIKACIN PER PHARMACY NOTE XX ; Start 06/05/16 at 17:00 Phenol 1 lozenge 1 lozenge Q4H PRN MT sore throat Last administered on 23:33; Admin Dose 1 LOZENGE; Start 06/06/16 at 18:30 Vancomycin HCl/ Sodium Chloride (Vancocin/NS) 150 ml @ 75 mls/hr Q96H IVPB Last administered on 06/09/16 16:38; Admin Dose 75 MLS/HR; Start 06/09/16 at 15 :00 ANNAMARIE SANTANA Jun 12, 2016 17:50
--- NOTE | 2016-06-15 21:23 | QN ---
Documentation Comment [id number] MICHELLE MCDANIEL MD Jun 15, 2016 21:23
--- NOTE | 2016-06-16 04:30 | DS ---
DATE OF ADMISSION: 05/29/2016 DATE OF DISCHARGE: 06/12/2016 HOSPITAL COURSE: The patient was admitted with diagnosis of short of breath, noted to have lung mas s, pneumonia, pulmonary edema. The patient underwent aggressive hemodialysis and was seen by Dr. Sudeep sibley in cardiology consultation. Echocardiogram was done and shows the patient has ejection fracti on 45%, normal left ventricular cavitary size, normal left ventricular wall thickness, mild left nichol tricular systolic dysfunction, ejection fraction 45%, mild mitral wall regurgitation, aortic scleros is. The patient was also seen by Dr. Ry Clifton in consultation. His recommendations were foll owed. The patient's chest x-ray is improving. Dr. Duarte saw this patient in consultation. He rec ommended to continue antibiotic. The patient has systemic inflammatory response syndrome, lung mass resolving, post-obstructive pneumonia, resolving, diabetes mellitus stable. The patient has weakne ss. Physical therapy was requested. The patient is stable to be discharged home. The patient unde rwent Lexiscan during this admission which shows no evidence of perfusion defect, no wall motion abn ormality, left ventricular ejection fraction of 53%. Chest CT scan shows limited prebiopsy CT of th e upper chest. There has been near complete resolution of fluid within the posterior medial right u pper lung. DIAGNOSES AT THE TIME OF DISCHARGE: 1. Lung mass, better. 2. Postobstructive pneumonia, better. 3. Hypertension 4. Diabetes mellitus. 5. Leukocytosis. 6. Anemia. 7. Atherosclerotic heart disease. 8. Positive troponin. 9. Status post Lexiscan, negative. 10. The patient also had Clostridium difficile colitis during this admission. DISCHARGE MEDICATIONS: To continue on 1. Levofloxacin. 2. Vancomycin. 3. Amlodipine. 4. Aspirin. 5. Lumigan. 6. Calcium. 7. ____. 8. Clonidine. 9. Docusate sodium. 10. Prozac. 11. Gabapentin. 12. Hydralazine. 13. Hydromorphone. 14. ____. 15. Losartan. 16. Reglan. 17. Omeprazole. 18. Zofran. 19. Renvela. DIET: Diabetic and renal diet. FOLLOWUP: The patient to follow up with own PCP and go to her regular dialysis center. Follow up w ith Dr. Ry Clifton and Dr. Duarte as an outpatient and Dr. Arnaldo Salcedo. Dictated By: MICHELLE MCDANIEL MD BS/NTS Conf#: [id number] DID#: [id number]
== END 2016-06-12 20:24 | disposition home or self-care (01) | DRG 871 ==
LOC: E/R 09:26 → MS4 14:54
PROVIDERS: ADMIT Internal Medicine Nephrology; ATTEND Internal Medicine Nephrology
PROC: 5A1D60Z (ICD-10-PCS; principal; 2016-05-29)
DX: A41.9 Sepsis, unspecified organism (principal); J18.8 Other pneumonia, unspecified organism; I13.2 Hypertensive heart and chronic kidney disease with heart failure and with stage 5 chronic kidney disease, or end stage renal disease; A04.7 Enterocolitis due to Clostridium difficile; N18.6 End stage renal disease; I42.9 Cardiomyopathy, unspecified; I50.22 Chronic systolic (congestive) heart failure; E11.22 Type 2 diabetes mellitus with diabetic chronic kidney disease; I16.1 Hypertensive emergency; R91.8 Other nonspecific abnormal finding of lung field; E78.5 Hyperlipidemia, unspecified; I25.10 Atherosclerotic heart disease of native coronary artery without angina pectoris; D64.9 Anemia, unspecified; K22.8 Other specified diseases of esophagus; E87.5 Hyperkalemia; K31.84 Gastroparesis; E11.43 Type 2 diabetes mellitus with diabetic autonomic (poly)neuropathy; Z79.4 Long term (current) use of insulin; Z99.2 Dependence on renal dialysis
CPT/HCPCS: 36415; 70450; 70490; 71010; 71250; 78452; 80048; 80053; 80061; 80202; 82550; 82553; 82962; 83605; 84484; 85025; 85610; 85730; 86308; 87040; 87075; 87081; 87880; 90935; 93005; 93017; 93306; 94640; 96361; 96372; 96374; 96375; A9500; A9505; J0131; J0278; J0360; J1170; J1580; J1650; J1815; J2405; J2543; J2785; J3260; J3370; J7040; J7042; P9047

== ENCOUNTER 2016-06-25 16:00 | Inpatient (IN) | payer MEDICARE, BC ==
[~2016-06-25] VITALS: Ht 152.4 cm; Wt 60.9 kg
[~2016-06-25 16:00] MED LIST changes: +LEVO250T9 PO; -METH500T8 PO; +VANC250C12 PO
[2016-06-25 16:25] VITALS: TEMP 97.8
[2016-06-25] MEDS ORDERED: ASPIRIN 325 MG TAB PO STA (16:29)
[2016-06-25] MEDS ORDERED: morphine 2 MG INJ IV STA (16:29)
[2016-06-25] MEDS ORDERED: NITROGLYCERIN 2% 1 GM OINT PKT TD STA (16:29)
[2016-06-25] MEDS ORDERED: ONDANSETRON 4 MG INJ IV STA (16:29)
[2016-06-25 16:45] LABS: ADD SCAN DIFF NO
[2016-06-25 16:50] LABS: BASOPHILS % 0.5 % (0.0-2.0); EOSINOPHILS # 0.1 10^3/ul (0.0-0.5); HEMATOCRIT 26.4 % (37.0-47.0); HEMOGLOBIN 8.5 g/dl (12.0-16.0); LYMPHOCYTES # 0.9 10^3/ul (0.8-2.9); LYMPHOCYTES % 22.7 % (15.0-51.0); MEAN CORPUSCULAR HEMOGLOBIN 31.3 pg (29.0-33.0); MEAN CORPUSCULAR HGB CONC 32.2 g/dl (32.0-37.0); MEAN CORPUSCULAR VOLUME 97.1 fl (82.0-101.0); MEAN PLATELET VOLUME 8.7 fl (7.4-10.4); MONOCYTE # 0.5 10^3/ul (0.3-0.9); MONOCYTES % 13.4 % (0.0-11.0); NEUTROPHIL # 2.4 10^3/ul (1.6-7.5); NEUTROPHILS % 59.6 % (39.0-77.0); PLATELET COUNT 293 10^3/UL (140-415); RED BLOOD COUNT 2.72 10^6/ul (4.20-5.40); RED CELL DISTRIBUTION WIDTH 14.3 % (11.5-14.5)
--- NOTE | 2016-06-25 16:55 | RADRPT ---
PROCEDURE: XR Chest. CLINICAL INDICATION: 71-year-old female with chest pain. TECHNIQUE: Single frontal view of the chest was obtained COMPARISON: Chest x-ray 06/04/2016 07:16 p.m. FINDINGS: The soft tissues are normal. There are degenerative osteophytes in the thoracic spine. The heart i s enlarged. The cardiomediastinal silhouette, pulmonary vasculature and hilar structures are normal . There are vascular calcifications and ectasia of the left-sided thoracic aorta. There are pleural and parenchymal densities adjacent to the left heart border which may represent a combination of inf iltrate/atelectasis and/or pleural scarring. There is a plate-like density in the periphery of the right lower lung field. The costophrenic angles are normal. IMPRESSION: 1. There is a patchy density along the lower left heart border with blunting left costophrenic angle . This finding may be the result of consolidative infiltrate/atelectasis with associated pleural sc arring. 2. Spondylosis of the thoracic spine. 3. Atherosclerosis ectasia of the thoracic aorta. 4. Mild cardiomegaly. 5. Chronic right rotator cuff tear with narrowing of the right subacromial joint space. RPTAT:AAJJ Physician Thom Date Time Electronically viewed and signed by Physician Thom on 06/25/2016 16:54 IRA/
[2016-06-25 17:00] LABS: CHLORIDE 90 mmol/L (97-110); POTASSIUM 3.3 mmol/L (3.5-5.1); SODIUM 135 mmol/L (135-144)
[2016-06-25 17:03] LABS: ANION GAP 14 (8-16); BLOOD UREA NITROGEN 8 mg/dl (7-20); CARBON DIOXIDE 34 mmol/L (21-31); CREATININE 1.86 mg/dl (0.44-1.00)
[2016-06-25 17:04] LABS: CALCIUM 8.6 mg/dl (8.4-10.2); GLUCOSE 159 mg/dl (70-220)
[2016-06-25 17:20] LABS: TROPONIN-I < 0.012 ng/ml (0.00-0.12)
[2016-06-25] MEDS ORDERED: FOLI-49 PO (17:49)
[2016-06-25] MEDS ORDERED: TRAM-40 PO (17:49)
[2016-06-25] MEDS ORDERED: FER325 PO (17:51)
[2016-06-25] MEDS ORDERED: BISACODYL 10 MG SUPP PR ONE (19:00)
--- NOTE | 2016-06-25 19:15 | ERA ---
ER Documentation Chief Complaint Date/Time DATE: 06/25/16 TIME: 19:12 Chief Complaint cp after dialysis HPI This is a 71-year-old female who is complaining of substernal chest pressure today after hemodialysis. She states she has a pressure in the center of the chest with some slight radiation to the shoulders and shortness of breath. No diaphoresis no palpitations no syncope no pain in the back jaw or elbows. She says her pain is starting to subside and is very mild and nearly gone at this point. She is also complaining of constipation for the past week and has off and on sensation that she needs to have a bowel movement. ROS All systems reviewed and are negative except as per history of present illness. Medications Home Meds Active Scripts Vancomycin Hcl (Vancocin Hcl Oral) 250 Mg Capsule, 250 MG PO Q8 for 28 Days, CAP Prov:MICHELLE MCDANIEL MD 06/12/16 Metoclopramide* (Reglan*) 10 Mg Tablet, 10 MG PO AC MEALS AND BEDTIME Y for NAUSEA, #50 TAB Prov:OLGA LIDIA FENTON MD 09/24/15 Clonidine Hcl* (Clonidine Hcl*) 0.1 Mg Tab, 0.1 MG PO TID for 28 Days, TAB Prov:MICHELLE MCDANIEL MD 06/22/15 Hydralazine Hcl* (Hydralazine Hcl*) 50 Mg Tab, 50 MG PO TID, #180 TAB Prov:OLGA LIDIA FENTON MD 06/20/14 Reported Medications Ferrous Sulfate* (Ferrous Sulfate*) 325 Mg Tabec, 325 MG PO DAILY, TAB 06/25/16 Folic Acid* (Folic Acid*) 1 Mg Tablet, 1 MG PO DAILY, TAB 06/25/16 Tramadol Hcl* (Ultram*) 50 Mg Tablet, 50 MG PO BID Y for PAIN, TAB 06/25/16 Sevelamer Carbonate* (Renvela*) 800 Mg Tablet, 0.8 GM PO WITH MEALS, TAB 09/15/15 Bimatoprost* (Lumigan*) 0.01%-2.5 Ml Opht Drops, 1 DROP BOTH EYES HS, EA 09/15/15 Docusate Sodium* (Dok*) 100 Mg Tablet, 100 MG PO DAILY Y for CONSTIPATION, #30 CAP 08/29/15 Insulin Glargine* (Lantus*) 100 Unit/Ml Soln, 0 SC SLIDING SCALES, #1 VIAL 08/29/15 Losartan Potassium* (Losartan Potassium*) 50 Mg Tablet, 50 MG PO DAILY 08/15/15 Omeprazole* (Omeprazole*) 20 Mg Capsule.dr, 20 MG PO DAILY, #30 CAP 06/05/15 Amlodipine Besylate* (Amlodipine Besylate*) 10 Mg Tablet, 10 MG PO DAILY, #30 TAB 06/05/15 Gabapentin* (Gabapentin*) 100 Mg Capsule, 100 MG PO TID 08/08/13 Discontinued Reported Medications Hydromorphone Hcl* (Hydromorphone Hcl*) 2 Mg Tablet, 2 MG PO Q4H Y for PAIN, TAB 09/15/15 Ondansetron Hcl* (Ondansetron Hcl*) 8 Mg Tablet, 8 MG PO Q6H Y for NAUSEA AND OR VOMITING, TAB 08/29/15 Calcium Acetate* (Calcium Acetate*) 667 Mg Capsule, 667 MG PO WITH MEALS, #30 CAP 08/29/15 Fluoxetine Hcl* (Fluoxetine Hcl*) 20 Mg Capsule, 20 MG PO DAILY 08/15/15 Aspirin (Aspirin) 81 Mg Tablet.dr, 81 MG PO DAILY 11/26/12 Discontinued Scripts Levofloxacin* (Levofloxacin*) 250 Mg Tablet, 250 MG PO DAILY for 10 Days, TAB Prov:MICHELLE MCDANIEL MD 06/12/16 Allergies Allergies: Coded Allergies: No Known Drug Allergies (Verified Allergy, Unknown, 06/25/16) PMhx/Soc History of Surgery: No Anesthesia Reaction: No Hx Neurological Disorder: Yes (stroke) Hx Respiratory Disorders: Yes (lung mass) Hx Cardiac Disorders: Yes (htn) Hx Psychiatric Problems: Yes (depression) Hx Miscellaneous Medical Probl: Yes (DM, ESRD W/DIALYSIS) Hx Alcohol Use: No Hx Substance Use: No Hx Tobacco Use: No Smoking Status: Never smoker FmHx Family History: No coronary disease Physical Exam Vitals Vital Signs Date Time Temp Pulse Resp B/P Pulse Ox O2 Delivery O2 Flow Rate FiO2 06/25/16 17:01 Nasal Cannula 2 06/25/16 16:25 97.8 81 17 186/70 100 Room Air 06/25/16 16:02 97.8 90 20 180/90 99 Physical Exam Const: Well-developed, well-nourished Head: Atraumatic, normocephalic Eyes: Normal Conjunctiva, PERRLA, EOMI, normal sclera, no nystagmus ENT: Normal External Ears, Nose and Mouth, moist mucus membranes. Neck: Full range of motion. No meningismus, no lymphadenopathy. Resp: Clear to auscultation bilaterally, no wheezing, rhonchi, rales Cardio: Regular rate and rhythm, no murmurs, S1 S2 present Abd: Soft, non tender x 4, non distended. Normal bowel sounds, no guarding or rebound, no pulsitile abdominal masses or bruits Skin: No petechiae or rashes, no ecchymosis , no maculopapular rash Back: No midline or flank tenderness Ext: No cyanosis, or edema, FROM x 4, normal inspection, neurovascularly intact x 4, AV shunt with thrill Neur: Awake and alert, STR 5/5 x 4, sensation intact x 4, no focal findings, cerebellum intact Psych: Normal Mood and Affect Result Diagram: 06/25/16 1635 06/25/16 1635 Results 24 hrs Laboratory Tests Test 06/25/16 16:35 06/25/16 16:37 Anion Gap 14 Basophils # 0.010^3/ul Basophils % 0.5% Blood Urea Nitrogen 8mg/dl Calcium Level 8.6mg/dl Carbon Dioxide Level 34mmol/L Chloride Level 90mmol/L Creatinine 1.86mg/dl Eosinophils # 0.110^3/ul Eosinophils % 3.0% Glucose Level 159mg/dl Hematocrit 26.4% Hemoglobin 8.5g/dl Lymphocytes # 0.910^3/ul Lymphocytes % 22.7% Mean Corpuscular Hemoglobin 31.3pg Mean Corpuscular Hemoglobin Concent 32.2g/dl Mean Corpuscular Volume 97.1fl Mean Platelet Volume 8.7fl Monocytes # 0.510^3/ul Monocytes % 13.4% Neutrophils # 2.410^3/ul Neutrophils % 59.6% Nucleated Red Blood Cells # 0.010^3/ul Nucleated Red Blood Cells % 0.0/100WBC Platelet Count 32311^3/UL Potassium Level 3.3mmol/L Red Blood Count 2.7210^6/ul Red Cell Distribution Width 14.3% Sodium Level 135mmol/L Troponin I < 0.012ng/ml White Blood Count 4.010^3/ul Bedside Glucose 163mg/dL Current Medications Medications (Trade) Dose Ordered Sig/Leanne Route PRN Reason Start Time Stop Time Status Last Admin Dose Admin Aspirin (Aspirin) 325 mg ONCE STAT PO 06/25/16 16:29 06/25/16 16:32 DC 06/25/16 17:43 Nitroglycerin (Nitroglycerin 2% Oint) 1 inch ONCE STAT TD 06/25/16 16:29 06/25/16 16:32 DC 06/25/16 17:45 Morphine Sulfate (morphine) 2 mg ONCE STAT IV 06/25/16 16:29 06/25/16 16:32 DC 06/25/16 17:44 Ondansetron HCl (Zofran Inj) 4 mg ONCE STAT IV 06/25/16 16:29 06/25/16 16:32 DC 06/25/16 17:44 Bisacodyl (Dulcolax Supp) 10 mg ONCE ONCE TN 06/25/16 19:00 06/25/16 19:01 DC 06/25/16 18:56 Procedures/MDM PROCEDURE: XR Chest. CLINICAL INDICATION: 71-year-old female with chest pain. TECHNIQUE: Single frontal view of the chest was obtained COMPARISON: Chest x-ray 06/04/2016 07:16 p.m. FINDINGS: The soft tissues are normal. There are degenerative osteophytes in the thoracic spine. The heart is enlarged. The cardiomediastinal silhouette, pulmonary vasculature and hilar structures are normal. There are vascular calcifications and ectasia of the left-sided thoracic aorta. There are pleural and parenchymal densities adjacent to the left heart border which may represent a combination of infiltrate/atelectasis and/or pleural scarring. There is a plate-like density in the periphery of the right lower lung field. The costophrenic angles are normal. IMPRESSION: 1. There is a patchy density along the lower left heart border with blunting left costophrenic angle. This finding may be the result of consolidative infiltrate/atelectasis with associated pleural scarring. 2. Spondylosis of the thoracic spine. 3. Atherosclerosis ectasia of the thoracic aorta. 4. Mild cardiomegaly. 5. Chronic right rotator cuff tear with narrowing of the right subacromial joint space. RPTAT:AAJJ Maynor Rivera Physician Date Time Electronically viewed and signed by Maynor Rivera Physician on 06/25/2016 16:54 JM/ CC: AGNES RAMESH DO EKG: Rate/Rhythm: Normal Sinus Rhythm,NL intervals QRS, ST, QT: NORMAL TN, QRS, QT] Impression: NORMAL EKG Patient's symptoms are concerning for cardiac cause will require inpatient workup and continuous monitoring. Further w/u for ischemia, arrhythmia, PE or dissection will be deferred to the inpatient team. Accepting Care Team: Current data and ongoing care discussed. Time: Time of admission Primary Provider: eli Consulting: [GEORGETTE] Outstanding Data: none Departure Diagnosis: Primary Impression: Chest pain Qualified Code: R07.9 - Chest pain, unspecified type Condition: Stable AGNES RAMESH DO Jun 25, 2016 19:15
[2016-06-25] MEDS ORDERED: ACETAMINOPHEN 325 MG TAB PO PRN (19:30)
[2016-06-25] MEDS ORDERED: ONDANSETRON 4 MG INJ IV PRN (19:30)
[2016-06-25 20:47] VITALS: PULSE 80
[2016-06-25] MEDS ORDERED: POTASSIUM CHLORIDE (SR) 20 MEQ TAB PO STA (21:27)
[2016-06-25 21:30] VITALS: Ht 152.4 cm; Wt 60.9 kg
[2016-06-25] MEDS ORDERED: NITROGLYCERIN (SL) 0.4 MG TAB SL PRN (21:30)
[2016-06-25] MEDS ORDERED: morphine 2 MG INJ IV PRN (21:30)
[2016-06-25] MEDS ORDERED: DOCUSATE SODIUM 100 MG CAP PO PRN ×2 (22:00→23:00)
[2016-06-25] MEDS ORDERED: METOCLOPRAMIDE 10 MG TAB PO PRN (22:00)
[2016-06-25] MEDS: POLYETHYLENE GLYCOL 17 GM PACKET PO PRN (22:08)
[2016-06-25] MEDS: traMADol 50 MG TAB PO PRN (22:09)
[2016-06-25] MEDS ORDERED: GLUCOSE GEL 15 GRAM TUBE PO PRN ×2 (22:30)
[2016-06-25] MEDS ORDERED: DEXTROSE 50% 50 ML SYRINGE IV PRN ×2 (22:30)
[2016-06-25] MEDS ORDERED: GLUCAGON 1 MG INJ IM PRN (22:30)
[2016-06-25] MEDS ORDERED: GLUCOSE GEL 15 GRAM TUBE BUCCAL PRN (22:30)
[2016-06-25] MEDS ORDERED: ACETAMINOPHEN 650 MG SUPP PR PRN (23:00)
[2016-06-25] MEDS ORDERED: NACL 0.9% 3 ML SYG IV SCH (23:00)
--- NOTE | 2016-06-25 23:25 | QN ---
Documentation Comment a/p esrd htn abd pain ashd s/p pneumonia plan bowel care MICHELLE MCDANIEL MD Jun 25, 2016 23:25
[2016-06-26] VITALS (12 sets, daily range): BP systolic 141–187; BP diastolic 65–81; PULSE 63–75; RESP 16–20
[2016-06-26] MEDS: INSULIN ASPART [NOVOLOG] 3 ML PEN SC SCH ×4 (00:31→21:00)
[2016-06-26] MEDS: ACCUCHECK XX SCH (02:00)
[2016-06-26] MEDS ORDERED: PANTOPRAZOLE 40 MG INJ IV SCH (06:00)
[2016-06-26] MEDS: FERROUS SULFATE (EC) 325 MG TAB PO SCH (09:09)
[2016-06-26] MEDS: FOLIC ACID 1 MG TAB PO SCH (09:09)
[2016-06-26] MEDS: SEVELAMER CARBONATE 0.8 GM PKT PO SCH ×3 (09:09→18:05)
[2016-06-26] MEDS: LOSARTAN 50 MG TAB PO SCH (09:10)
[2016-06-26] MEDS: GABAPENTIN 100 MG CAP PO SCH ×3 (09:11→21:05)
[2016-06-26] MEDS: AMLODIPINE 10 MG TAB PO SCH (09:14)
[2016-06-26 10:11] LABS: POTASSIUM 4.5 mmol/L (3.5-5.1)
[2016-06-26 10:14] LABS: CREATININE 3.11 mg/dl (0.44-1.00)
[2016-06-26 10:15] LABS: CALCIUM 8.4 mg/dl (8.4-10.2)
--- NOTE | 2016-06-26 16:31 | QN ---
Documentation Comment [id number] MICHELLE MCDANIEL MD Jun 26, 2016 16:31
--- NOTE | 2016-06-26 16:36 | PN ---
Date/Time of Note Date/Time of Note DATE: 06/26/16 TIME: 16:35 Assessment/Plan VTE Prophylaxis VTE Prophylaxis Intervention: other Lines/Catheters IV Catheter Type (from Nrsg): Saline Lock Assessment/Plan Chief Complaint/Hosp Course A/P ESRD HTN ABD PAIN CONSTIPATION PLAN HD AM BOWEL CARE Problems: Subjective 24 Hr Interval Summary Gastrointestinal: constipation (+) Exam/Review of Systems Vital Signs Vitals Vital Signs Date Time Temp Pulse Resp B/P Pulse Ox O2 Delivery O2 Flow Rate FiO2 06/26/16 15:52 97.9 66 20 150/68 92 06/25/16 20:00 Room Air 06/25/16 17:01 2 Intake and Output 06/25/16 06/25/16 06/26/16 15:00 23:00 07:00 Intake Total 100 ml Balance 100 ml Exam Respiratory: clear to auscultation Cardiovascular: regular rate and rhythm Gastrointestinal: soft Genitourinary - Female: nl adnexae, nl external genitalia Results Result Diagram: 06/25/16 1635 06/26/16 0929 Results 24 hrs Laboratory Tests Test 06/25/16 16:37 06/25/16 22:19 06/25/16 22:25 06/26/16 08:27 Bedside Glucose 163 217 119 Troponin I < 0.012 Test 06/26/16 09:29 06/26/16 11:44 06/26/16 12:50 Anion Gap 13 Blood Urea Nitrogen 14 Calcium Level 8.4 Carbon Dioxide Level 35 H Chloride Level 91 L Creatinine 3.11 #H Glucose Level 152 Potassium Level 4.5 Sodium Level 134 L Troponin I < 0.012 < 0.012 Bedside Glucose 161 Medications Medications Current Medications Nitroglycerin (Nitroglycerin (Sl Tab) 0.4 Mg) 1 tab Q5M PRN SL ANGINA; Start at 21:30 Polyethylene Glycol (Miralax) 17 gm DAILY PRN PO CONSTIPATION Last administered on 06/25/16 22:08; Admin Dose 17 GM; Start 06/25/16 at 21:30 Morphine Sulfate (morphine) 2 mg Q4H PRN IV pain; Start 06/25/16 at 21:30 Amlodipine Besylate (Norvasc) 10 mg DAILY PO Last administered on 06/26/16 09: 14; Admin Dose 10 MG; Start 06/26/16 at 09:00 Latanoprost (Xalatan) 1 drop HS BOTH EYES ; Start 06/26/16 at 21:00 Clonidine (Catapres) 0.1 mg TID PO Last administered on 06/26/16 14:56; Admin Dose 0.1 MG; Start 06/26/16 at 09:00 Docusate Sodium (Colace) 100 mg DAILY PRN PO CONSTIPATION Last administered on 06/25/16 22:08; Admin Dose 100 MG; Start 06/25/16 at 22:00 Ferrous Sulfate (Ferrous Sulfate (Ec)) 325 mg DAILY PO Last administered on 06/26 09:09; Admin Dose 325 MG; Start 06/26/16 at 09:00 Folic Acid (Folic Acid) 1 mg DAILY PO Last administered on 06/26/16 09:09; Admin Dose 1 MG; Start 06/26/16 at 09:00 Gabapentin (Neurontin) 100 mg TID PO Last administered on 06/26/16 15:01; Admin Dose 100 MG; Start 06/26/16 at 09:00 Hydralazine HCl (Apresoline) 50 mg TID PO Last administered on 06/26/16 15:01; Admin Dose 50 MG; Start 06/26/16 at 09:00 Losartan Potassium (Cozaar) 50 mg DAILY PO Last administered on 06/26/16 09:10 ; Admin Dose 50 MG; Start 06/26/16 at 09:00 Tramadol HCl (Ultram) 50 mg BID PRN PO PAIN Last administered on 06/25/16 22:09 ; Admin Dose 50 MG; Start 06/25/16 at 22:00 Diagnostic Test (Pha) (Accucheck) 1 ea 02 XX Last administered on 06/26/16 02: 00; Admin Dose 1 EA; Start 06/26/16 at 02:00 Miscellaneous Information 1 ea NOTE XX ; Start 06/25/16 at 22:30 Glucose (Glutose) 15 gm Q15M PRN PO DECREASED GLUCOSE; Start 06/25/16 at 22:30 Glucose (Glutose) 22.5 gm Q15M PRN PO DECREASED GLUCOSE; Start 06/25/16 at 22:30 Dextrose (D50w Syringe) 25 ml Q15M PRN IV DECREASED GLUCOSE; Start 06/25/16 at 22:30 Dextrose (D50w Syringe) 50 ml Q15M PRN IV DECREASED GLUCOSE; Start 06/25/16 at 22:30 Glucagon (Glucagen) 1 mg Q15M PRN IM DECREASED GLUCOSE; Start 06/25/16 at 22:30 Glucose (Glutose) 15 gm Q15M PRN BUCCAL DECREASED GLUCOSE; Start 06/25/16 at 22: 30 Ondansetron HCl (Zofran Inj) 4 mg Q6H PRN IV NAUSEA AND/OR VOMITING; Start 06/25 at 23:00 Acetaminophen (Tylenol Tab) 650 mg Q6H PRN PO PAIN LEVEL 1-3 OR FEVER; Start at 23:00 Acetaminophen (Tylenol Supp) 650 mg Q6H PRN [place] PAIN LEVEL 1-3 OR FEVER; Start 06/25/16 at 23:00 Docusate Sodium (Colace) 100 mg Q12H PRN PO CONSTIPATION; Start 06/25/16 at 23: 00 Bisacodyl (Dulcolax) 5 mg DAILY PRN PO CONSTIPATION; Start 06/25/16 at 23:00 Clonidine (Catapres) 0.1 mg Q6H PRN PO SBP more than 170; Start 06/26/16 at 15: 31 Pantoprazole (Protonix Tab) 40 mg DAILY@06 PO ; Start 06/27/16 at 06:00 MICHELLE MCDANIEL MD Jun 26, 2016 16:36
--- NOTE | 2016-06-26 17:25 | HP ---
DATE OF ADMISSION: 06/25/2016 HISTORY OF PRESENT ILLNESS: The patient is a 71-year-old female with history of ESRD. The patient was recently discharged from this hospital with diagnosis of lung mass, which is better after dialysis on antibiotic, postobstructive pneumonia, hypertension, diabetes mellitus, leukocytosis, atherosclerotic heart disease, positive troponin status, Lexiscan negative, C. difficile colitis which was treated. The patient presents to this hospital complaining of constipation and is being admitted for further management. The patient blood pressure is 150/68. WBC 4, hematocrit 26.4, platelet count of 103. Sodium 134 , potassium 4.5. The patient's chest x-ray shows there is a patchy density in the lower left heart border with blunting of the costophrenic angle infiltrate or atelectasis with associated pleural thickening, spondylosis of thoracic spine , atherosclerosis, ectasia of the thoracic aorta, mild cardiomegaly, chronic right rotator cuff tear. ALLERGY HISTORY: NEGATIVE. FAMILY HISTORY: Negative. SOCIAL HISTORY: Negative. MEDICATION HISTORY: Home medications listed as: 1. Amlodipine. 2. Lumigan. 3. Clonidine. 4. Docusate sodium. 5. ss insulin 6. Folic acid. 7. Gabapentin. 8. Hydralazine. 9. Insulin. 10. Losartan. 11 Reglan. 12. Omeprazole. 13. Renvela. 14. Tramadol. 15. Vancomycin. REVIEW OF SYSTEMS: HEENT: Unremarkable. RESPIRATORY: Unremarkable. CARDIOVASCULAR: Unremarkable. ABDOMEN: Complaining of constipation. EXTREMITIES: Unremarkable. GENITOURINARY: Unremarkable. MUSCULOSKELETAL: Unremarkable. PHYSICAL EXAMINATION: GENERAL: The patient is awake, alert, not in any acute respiratory distress. VITAL SIGNS: Pulse 60, blood pressure 140/61. HEAD: Atraumatic, normocephalic. Pupils equal, reactive to light. Conjunctivae, no icterus. NECK: Supple. LUNGS: Clear. CARDIOVASCULAR: S1, S2 normal. ABDOMEN: Soft, nontender. Bowel sounds present. No palpable mass or hepatosplenomegaly. EXTREMITIES: No cyanosis, clubbing, or edema. CENTRAL NERVOUS SYSTEM: The patient is awake, alert, no focal deficit. LABORATORY DATA: As mentioned above. IMPRESSION: 1. Patient has constipation. 2. History of Clostridium difficile colitis. 3. Hyponatremia. 4. End stage renal bladder. 5. Hypertension. 6. Diabetes mellitus. 7. Dyslipidemia. 8. Anemia. 9. History of lung mass, resolving. PLAN: Continue bowel care, home medications, hemodialysis and anti-emetic if needed. Dictated By: MICHELLE DEL CID/YAHIR Conf#: [id number] DID#: [id number]
[2016-06-26] MEDS: LATANOPROST 0.005% 2.5 ML OPH BOTH EYES SCH (21:00)
[2016-06-26] MEDS: POLYETHYLENE GLYCOL 17 GM PACKET PO PRN (21:05)
[2016-06-26] MEDS: BISACODYL (EC) 5 MG TAB PO PRN (21:05)
[2016-06-26] MEDS: ACETAMINOPHEN 325 MG TAB PO PRN (21:05)
[2016-06-26] MEDS: LUBIPROSTONE 24 MCG CAP PO SCH (21:05)
[2016-06-26] MEDS: ONDANSETRON 4 MG INJ IV PRN (21:14)
[2016-06-27] VITALS (21 sets, daily range): BP systolic 120–183; BP diastolic 32–88; PULSE 66–89; RESP 18
[2016-06-27] MEDS: ACCUCHECK XX SCH ×2 (01:49→20:21)
[2016-06-27] MEDS: PANTOPRAZOLE (EC) 40 MG TAB PO SCH (06:10)
[2016-06-27] MEDS: INSULIN ASPART [NOVOLOG] 3 ML PEN SC SCH ×4 (08:00→20:20)
[2016-06-27] MEDS: LUBIPROSTONE 24 MCG CAP PO SCH ×2 (08:30→20:17)
[2016-06-27] MEDS: SEVELAMER CARBONATE 0.8 GM PKT PO SCH ×3 (08:30→17:41)
[2016-06-27] MEDS: FERROUS SULFATE (EC) 325 MG TAB PO SCH (08:31)
[2016-06-27] MEDS: GABAPENTIN 100 MG CAP PO SCH ×3 (08:32→20:17)
[2016-06-27] MEDS: FOLIC ACID 1 MG TAB PO SCH (08:32)
[2016-06-27] MEDS: LOSARTAN 50 MG TAB PO SCH (08:34)
[2016-06-27] MEDS: AMLODIPINE 10 MG TAB PO SCH (08:34)
[2016-06-27] MEDS: ALBUMIN HUMAN 25% 100 ML IV ONE ×2 (10:00→10:45)
[2016-06-27 10:36] LABS: ADD SCAN DIFF NO
[2016-06-27 10:44] LABS: BASOPHILS % 0.6 % (0.0-2.0); EOSINOPHILS # 0.1 10^3/ul (0.0-0.5); EOSINOPHILS % 2.2 % (0.0-7.0); HEMATOCRIT 25.5 % (37.0-47.0); LYMPHOCYTES # 0.9 10^3/ul (0.8-2.9); LYMPHOCYTES % 13.3 % (15.0-51.0); MEAN CORPUSCULAR HEMOGLOBIN 31.6 pg (29.0-33.0); MEAN CORPUSCULAR HGB CONC 31.4 g/dl (32.0-37.0); MEAN CORPUSCULAR VOLUME 100.8 fl (82.0-101.0); MONOCYTE # 0.8 10^3/ul (0.3-0.9); NEUTROPHIL # 4.6 10^3/ul (1.6-7.5); NEUTROPHILS % 70.6 % (39.0-77.0); PLATELET COUNT 310 10^3/UL (140-415); RED BLOOD COUNT 2.53 10^6/ul (4.20-5.40); RED CELL DISTRIBUTION WIDTH 14.2 % (11.5-14.5); WHITE BLOOD COUNT 6.5 10^3/ul (4.8-10.8)
[2016-06-27] MEDS: ACETAMINOPHEN 325 MG TAB PO PRN (15:46)
--- NOTE | 2016-06-27 17:41 | PN ---
Date/Time of Note Date/Time of Note DATE: 06/27/16 TIME: 17:40 Assessment/Plan VTE Prophylaxis VTE Prophylaxis Intervention: other Lines/Catheters IV Catheter Type (from Nrsg): Saline Lock Assessment/Plan Chief Complaint/Hosp Course A/P ESRD HTN ABD PAIN CONSTIPATION PLAN HD AM BOWEL CARE LACTULOSE Problems: Subjective 24 Hr Interval Summary Respiratory: no complaints Cardiovascular: no complaints Gastrointestinal: other (CONSTIPATION+) Exam/Review of Systems Vital Signs Vitals Vital Signs Date Time Temp Pulse Resp B/P Pulse Ox O2 Delivery O2 Flow Rate FiO2 06/27/16 16:48 100.2 136/65 06/27/16 16:18 89 06/27/16 16:05 18 91 06/25/16 20:00 Room Air 06/25/16 17:01 2 Exam Respiratory: clear to auscultation Cardiovascular: regular rate and rhythm Gastrointestinal: soft Musculoskeletal: nl extremities to inspection Results Result Diagram: 06/27/16 0907 06/26/16 0929 Results 24 hrs Laboratory Tests Test 06/26/16 20:57 06/27/16 07:29 06/27/16 09:07 06/27/16 12:17 Bedside Glucose 127 118 179 Basophils # 0.0 Basophils % 0.6 Eosinophils # 0.1 Eosinophils % 2.2 Hematocrit 25.5 L Hemoglobin 8.0 L Lymphocytes # 0.9 Lymphocytes % 13.3 L Mean Corpuscular Hemoglobin 31.6 Mean Corpuscular Hemoglobin Concent 31.4 L Mean Corpuscular Volume 100.8 Mean Platelet Volume 9.0 Monocytes # 0.8 Monocytes % 13.0 H Neutrophils # 4.6 Neutrophils % 70.6 Nucleated Red Blood Cells # 0.0 Nucleated Red Blood Cells % 0.0 Platelet Count 310 Red Blood Count 2.53 L Red Cell Distribution Width 14.2 White Blood Count 6.5 # Test 06/27/16 17:27 Bedside Glucose 141 Medications Medications Current Medications Nitroglycerin (Nitroglycerin (Sl Tab) 0.4 Mg) 1 tab Q5M PRN SL ANGINA; Start at 21:30 Polyethylene Glycol (Miralax) 17 gm DAILY PRN PO CONSTIPATION Last administered on 06/26/16t 21:05; Admin Dose 17 GM; Start 06/25/16 at 21:30 Morphine Sulfate (morphine) 2 mg Q4H PRN IV pain; Start 06/25/16 at 21:30 Amlodipine Besylate (Norvasc) 10 mg DAILY PO Last administered on 06/26/16 09: 14; Admin Dose 10 MG; Start 06/26/16 at 09:00 Latanoprost (Xalatan) 1 drop HS BOTH EYES ; Start 06/26/16 at 21:00 Clonidine (Catapres) 0.1 mg TID PO Last administered on 06/27/16 12:23; Admin Dose 0.1 MG; Start 06/26/16 at 09:00 Docusate Sodium (Colace) 100 mg DAILY PRN PO CONSTIPATION Last administered on 06/25/16 22:08; Admin Dose 100 MG; Start 06/25/16 at 22:00 Ferrous Sulfate (Ferrous Sulfate (Ec)) 325 mg DAILY PO Last administered on 06/27 08:31; Admin Dose 325 MG; Start 06/26/16 at 09:00 Folic Acid (Folic Acid) 1 mg DAILY PO Last administered on 06/27/16 08:32; Admin Dose 1 MG; Start 06/26/16 at 09:00 Gabapentin (Neurontin) 100 mg TID PO Last administered on 06/27/16 12:22; Admin Dose 100 MG; Start 06/26/16 at 09:00 Hydralazine HCl (Apresoline) 50 mg TID PO Last administered on 06/27/16 12:24; Admin Dose 50 MG; Start 06/26/16 at 09:00 Losartan Potassium (Cozaar) 50 mg DAILY PO Last administered on 06/26/16 09:10 ; Admin Dose 50 MG; Start 06/26/16 at 09:00 Tramadol HCl (Ultram) 50 mg BID PRN PO PAIN Last administered on 06/25/16 22:09 ; Admin Dose 50 MG; Start 06/25/16 at 22:00 Diagnostic Test (Pha) (Accucheck) 1 ea 02 XX Last administered on 06/26/16 02: 00; Admin Dose 1 EA; Start 06/26/16 at 02:00 Miscellaneous Information 1 ea NOTE XX ; Start 06/25/16 at 22:30 Glucose (Glutose) 15 gm Q15M PRN PO DECREASED GLUCOSE; Start 06/25/16 at 22:30 Glucose (Glutose) 22.5 gm Q15M PRN PO DECREASED GLUCOSE; Start 06/25/16 at 22:30 Dextrose (D50w Syringe) 25 ml Q15M PRN IV DECREASED GLUCOSE; Start 06/25/16 at 22:30 Dextrose (D50w Syringe) 50 ml Q15M PRN IV DECREASED GLUCOSE; Start 06/25/16 at 22:30 Glucagon (Glucagen) 1 mg Q15M PRN IM DECREASED GLUCOSE; Start 06/25/16 at 22:30 Glucose (Glutose) 15 gm Q15M PRN BUCCAL DECREASED GLUCOSE; Start 06/25/16 at 22: 30 Ondansetron HCl (Zofran Inj) 4 mg Q6H PRN IV NAUSEA AND/OR VOMITING Last administered on 06/26/16 21:14; Admin Dose 4 MG; Start 06/25/16 at 23:00 Acetaminophen (Tylenol Tab) 650 mg Q6H PRN PO PAIN LEVEL 1-3 OR FEVER Last administered on 06/27/16 15:46; Admin Dose 650 MG; Start 06/25/16 at 23:00 Acetaminophen (Tylenol Supp) 650 mg Q6H PRN [place] PAIN LEVEL 1-3 OR FEVER; Start 06/25/16 at 23:00 Docusate Sodium (Colace) 100 mg Q12H PRN PO CONSTIPATION; Start 06/25/16 at 23: 00 Bisacodyl (Dulcolax) 5 mg DAILY PRN PO CONSTIPATION Last administered on 21:05; Admin Dose 5 MG; Start 06/25/16 at 23:00 Clonidine (Catapres) 0.1 mg Q6H PRN PO SBP more than 170 Last administered on 15:47; Admin Dose 0.1 MG; Start 06/26/16 at 15:31 Pantoprazole (Protonix Tab) 40 mg DAILY@06 PO Last administered on 06/27/16 06: 10; Admin Dose 40 MG; Start 06/27/16 at 06:00 Lubiprostone (Amitiza) 24 mcg BID PO Last administered on 06/27/16 08:30; Admin Dose 24 MCG; Start 06/26/16 at 21:00 Lactulose (Enulose) 10 gm BID PRN PO CONSTIPATION; Start 06/27/16 at 18:00; Status MICHELLE VAUGHN MD Jun 27, 2016 17:41
[2016-06-27] MEDS: ONDANSETRON 4 MG INJ IV PRN (17:42)
[2016-06-27] MEDS ORDERED: LACTULOSE 30ML CUP PO PRN (18:00)
[2016-06-27] MEDS: BISACODYL (EC) 5 MG TAB PO PRN (20:18)
[2016-06-27] MEDS: LATANOPROST 0.005% 2.5 ML OPH BOTH EYES SCH (20:18)
--- NOTE | 2016-06-27 22:18 | RADRPT ---
PROCEDURE: XR Abdomen. CLINICAL INDICATION: Constipation TECHNIQUE: AP supine abdomen x-rays, 2 images submitted for review. COMPARISON: Abdominal x-ray 09/08/2015 FINDINGS: Copious fecal debris throughout the colon correlates with the provided history of constipation There is no evidence of obstruction. No visceromegaly, soft tissue mass or pathologic calcification is de monstrated. Demineralization is noted without evidence of acute osseous abnormality. Extensive atherosclerotic calcification is noted. RPTAT:HJJR IMPRESSION: 1. Copious fecal debris consistent with constipation pattern similar to the study of 08/29/2015 with out evidence of acute intra-abdominal pathology. 2. Extensive atherosclerotic calcification of the iliac systems. Physician Gary Date Time Electronically viewed and signed by Physician Gary on 06/27/2016 22:17 /
[2016-06-28] VITALS (11 sets, daily range): BP systolic 111–200; BP diastolic 57–84; PULSE 61–74; RESP 16–20
[2016-06-28] MEDS: PANTOPRAZOLE (EC) 40 MG TAB PO SCH (04:58)
[2016-06-28] MEDS: INSULIN ASPART [NOVOLOG] 3 ML PEN SC SCH ×4 (08:00→21:00)
[2016-06-28] MEDS: SEVELAMER CARBONATE 0.8 GM PKT PO SCH ×3 (08:12→17:54)
[2016-06-28] MEDS: FERROUS SULFATE (EC) 325 MG TAB PO SCH (08:12)
[2016-06-28] MEDS: LUBIPROSTONE 24 MCG CAP PO SCH ×2 (08:13→21:58)
[2016-06-28] MEDS: LOSARTAN 50 MG TAB PO SCH (08:14)
[2016-06-28] MEDS: GABAPENTIN 100 MG CAP PO SCH ×3 (08:15→21:59)
[2016-06-28] MEDS: FOLIC ACID 1 MG TAB PO SCH (08:15)
[2016-06-28] MEDS: AMLODIPINE 10 MG TAB PO SCH (08:15)
[2016-06-28] MEDS: ACETAMINOPHEN 325 MG TAB PO PRN (10:34)
--- NOTE | 2016-06-28 16:36 | PN ---
Date/Time of Note Date/Time of Note DATE: 06/28/16 TIME: 16:35 Assessment/Plan VTE Prophylaxis VTE Prophylaxis Intervention: other Lines/Catheters IV Catheter Type (from Nrsg): Saline Lock Assessment/Plan Chief Complaint/Hosp Course A/P ESRD HTN ABD PAIN CONSTIPATION PLAN HD BOWEL CARE LACTULOSE DR GLASGOW GI Problems: Subjective 24 Hr Interval Summary Subjective hx not possible: other (constipation+ by kub) Exam/Review of Systems Vital Signs Vitals Vital Signs Date Time Temp Pulse Resp B/P Pulse Ox O2 Delivery O2 Flow Rate FiO2 06/28/16 15:43 98.0 62 18 143/63 95 06/28/16 07:23 Nasal Cannula 2.0 Intake and Output 06/27/16 06/27/16 06/28/16 15:00 23:00 07:00 Intake Total 500 ml 940 ml Output Total 2500 ml Balance -2000 ml 940 ml Exam Respiratory: clear to auscultation Cardiovascular: regular rate and rhythm Gastrointestinal: soft Musculoskeletal: nl extremities to inspection Extremities: normal pulses Results Result Diagram: 06/27/16 0907 06/26/16 0929 Results 24 hrs Laboratory Tests Test 06/27/16 17:27 06/27/16 20:20 06/28/16 08:07 06/28/16 11:45 Bedside Glucose 141 126 111 173 Medications Medications Current Medications Nitroglycerin (Nitroglycerin (Sl Tab) 0.4 Mg) 1 tab Q5M PRN SL ANGINA; Start at 21:30 Polyethylene Glycol (Miralax) 17 gm DAILY PRN PO CONSTIPATION Last administered on 06/26/16 21:05; Admin Dose 17 GM; Start 06/25/16 at 21:30 Morphine Sulfate (morphine) 2 mg Q4H PRN IV pain; Start 06/25/16 at 21:30 Amlodipine Besylate (Norvasc) 10 mg DAILY PO Last administered on 06/28/16 08: 15; Admin Dose 10 MG; Start 06/26/16 at 09:00 Latanoprost (Xalatan) 1 drop HS BOTH EYES Last administered on 06/27/16 20:18; Admin Dose 1 DROP; Start 06/26/16 at 21:00 Clonidine (Catapres) 0.1 mg TID PO Last administered on 06/28/16 13:14; Admin Dose 0.1 MG; Start 06/26/16 at 09:00 Docusate Sodium (Colace) 100 mg DAILY PRN PO CONSTIPATION Last administered on 06/25/16 22:08; Admin Dose 100 MG; Start 06/25/16 at 22:00 Ferrous Sulfate (Ferrous Sulfate (Ec)) 325 mg DAILY PO Last administered on 06/28 08:12; Admin Dose 325 MG; Start 06/26/16 at 09:00 Folic Acid (Folic Acid) 1 mg DAILY PO Last administered on 06/28/16 08:15; Admin Dose 1 MG; Start 06/26/16 at 09:00 Gabapentin (Neurontin) 100 mg TID PO Last administered on 06/28/16 13:15; Admin Dose 100 MG; Start 06/26/16 at 09:00 Hydralazine HCl (Apresoline) 50 mg TID PO Last administered on 06/28/16 13:13; Admin Dose 50 MG; Start 06/26/16 at 09:00 Losartan Potassium (Cozaar) 50 mg DAILY PO Last administered on 06/28/16 08:14 ; Admin Dose 50 MG; Start 06/26/16 at 09:00 Tramadol HCl (Ultram) 50 mg BID PRN PO PAIN Last administered on 06/25/16 22:09 ; Admin Dose 50 MG; Start 06/25/16 at 22:00 Diagnostic Test (Pha) (Accucheck) 1 ea 02 XX Last administered on 06/26/16 02: 00; Admin Dose 1 EA; Start 06/26/16 at 02:00 Miscellaneous Information 1 ea NOTE XX ; Start 06/25/16 at 22:30 Glucose (Glutose) 15 gm Q15M PRN PO DECREASED GLUCOSE; Start 06/25/16 at 22:30 Glucose (Glutose) 22.5 gm Q15M PRN PO DECREASED GLUCOSE; Start 06/25/16 at 22:30 Dextrose (D50w Syringe) 25 ml Q15M PRN IV DECREASED GLUCOSE; Start 06/25/16 at 22:30 Dextrose (D50w Syringe) 50 ml Q15M PRN IV DECREASED GLUCOSE; Start 06/25/16 at 22:30 Glucagon (Glucagen) 1 mg Q15M PRN IM DECREASED GLUCOSE; Start 06/25/16 at 22:30 Glucose (Glutose) 15 gm Q15M PRN BUCCAL DECREASED GLUCOSE; Start 06/25/16 at 22: 30 Ondansetron HCl (Zofran Inj) 4 mg Q6H PRN IV NAUSEA AND/OR VOMITING Last administered on 06/27/16 17:42; Admin Dose 4 MG; Start 06/25/16 at 23:00 Acetaminophen (Tylenol Tab) 650 mg Q6H PRN PO PAIN LEVEL 1-3 OR FEVER Last administered on 06/28/16 10:34; Admin Dose 650 MG; Start 06/25/16 at 23:00 Acetaminophen (Tylenol Supp) 650 mg Q6H PRN [place] PAIN LEVEL 1-3 OR FEVER Last administered on 06/27/16 19:01; Admin Dose 650 MG; Start 06/25/16 at 23:00 Docusate Sodium (Colace) 100 mg Q12H PRN PO CONSTIPATION; Start 06/25/16 at 23: 00 Bisacodyl (Dulcolax) 5 mg DAILY PRN PO CONSTIPATION Last administered on 20:18; Admin Dose 5 MG; Start 06/25/16 at 23:00 Clonidine (Catapres) 0.1 mg Q6H PRN PO SBP more than 170 Last administered on 04:59; Admin Dose 0.1 MG; Start 06/26/16 at 15:31 Pantoprazole (Protonix Tab) 40 mg DAILY@06 PO Last administered on 06/28/16 04: 58; Admin Dose 40 MG; Start 06/27/16 at 06:00 Lubiprostone (Amitiza) 24 mcg BID PO Last administered on 06/28/16 08:13; Admin Dose 24 MCG; Start 06/26/16 at 21:00 Lactulose (Enulose) 10 gm BID PRN PO CONSTIPATION Last administered on 10:34; Admin Dose 10 GM; Start 06/27/16 at 18:00 MICHELLE MCDANIEL MD Jun 28, 2016 16:36
--- NOTE | 2016-06-28 17:16 | CONS ---
Date/Time of Note Date/Time of Note DATE: 06/28/16 TIME: 17:13 Assessment/Plan Assessment/Plan Chief Complaint/Hosp Course Impression: 1. ESRD 2. Iron deficiency anemia: on oral iron supplementation which can be constipating 3. constipation/fecal impaction 4. ABD PAIN secondary to constipation and abdominal pain Recommendation: 1. dc oral iron replacement. 2. check iron panel tomorrow if low will replace by iv iron 3. all of the bowel regimen is written as prn which is not given. I dc'd the several PRN bowel regimen and made colace and miralax once a day scheduled (not PRN) to ensure nurses give the bowel regimen for now 4. tap water enema once to help with the fecal impaction 5. management of ESRD per primary and renal consultants Problems: Consultation Date/Type/Reason Admit Date/Time Jun 25, 2016 at 19:12 Date of Consultation: Jun 28, 2016 Type of Consultation: GI Hx of Present Illness 71-year-old female with history of ESRD who was recently discharged from this hospital with diagnosis of lung mass. She has h/o ESRD on HD, postobstructive pneumonia, hypertension, diabetes mellitus, leukocytosis, atherosclerotic heart disease, positive troponin status, Lexiscan negative, C. difficile colitis which was treated. The patient is admitted to the hospital for constipation and fecal impaction. The patient's chest x-ray shows there is a patchy density in the lower left heart border with blunting of the costophrenic angle infiltrate or atelectasis with associated pleural thickening, spondylosis of thoracic spine, atherosclerosis, ectasia of the thoracic aorta, mild cardiomegaly, chronic right rotator cuff tear. KUB showed copious fecal matter. At this time, patient complained of diffuse abdominal pain worse in the lower abdominal quadrant that is constant. All point ROS administered, pertinent positives and negatives in HPI otherwise negative. Respiratory: no complaints Cardiovascular: no complaints Gastrointestinal: other (CONSTIPATION+) Past Medical History PNA, h/o C. diff colitis Medical History: coronary artery disease, diabetes, GERD, hypertension, peptic ulcer disease, renal disease Past Surgical History Past Surgical Hx: endoscopy Family History Significant Family History: no pertinent family hx Social History Alcohol Use: none Smoking Status: Never smoker Drug Use: none Exam/Review of Systems Vital Signs Vitals Vital Signs Date Time Temp Pulse Resp B/P Pulse Ox O2 Delivery O2 Flow Rate FiO2 3/4/17 16:55 61 06/28/16 15:43 98.0 18 143/63 95 06/28/16 07:23 Nasal Cannula 2.0 Intake and Output 06/27/16 06/27/16 06/28/16 15:00 23:00 07:00 Intake Total 500 ml 940 ml Output Total 2500 ml Balance -2000 ml 940 ml Exam Constitutional: alert, obese, oriented, well developed Psych: anxiety Head: atraumatic, normocephalic Eyes: EOMI, nl conjunctiva, nl lids, nl sclera ENMT: mucosa pink and moist, nl external ears & nose, nl lips & teeth, nl nasal mucosa & septum Neck: non-tender, supple Respiratory: clear to auscultation Cardiovascular: nl pulses, regular rate and rhythm Gastrointestinal: bowel sounds, soft, tender (diffusely worse in the lower abdominal quadrant) Neurological: nl mental status, nl speech, nl strength Results Result Diagram: 06/27/16 0907 06/26/16 0929 Results 24 hrs Laboratory Tests Test 06/27/16 17:27 06/27/16 20:20 06/28/16 08:07 06/28/16 11:45 Bedside Glucose 141 126 111 173 Medications Medications Current Medications Nitroglycerin (Nitroglycerin (Sl Tab) 0.4 Mg) 1 tab Q5M PRN SL ANGINA; Start at 21:30 Polyethylene Glycol (Miralax) 17 gm DAILY PRN PO CONSTIPATION Last administered on 06/26/16 21:05; Admin Dose 17 GM; Start 06/25/16 at 21:30 Morphine Sulfate (morphine) 2 mg Q4H PRN IV pain; Start 06/25/16 at 21:30 Amlodipine Besylate (Norvasc) 10 mg DAILY PO Last administered on 06/28/16 08: 15; Admin Dose 10 MG; Start 06/26/16 at 09:00 Latanoprost (Xalatan) 1 drop HS BOTH EYES Last administered on 06/27/16 20:18; Admin Dose 1 DROP; Start 06/26/16 at 21:00 Clonidine (Catapres) 0.1 mg TID PO Last administered on 06/28/16 13:14; Admin Dose 0.1 MG; Start 06/26/16 at 09:00 Docusate Sodium (Colace) 100 mg DAILY PRN PO CONSTIPATION Last administered on 06/25/16 22:08; Admin Dose 100 MG; Start 06/25/16 at 22:00 Ferrous Sulfate (Ferrous Sulfate (Ec)) 325 mg DAILY PO Last administered on 06/28 08:12; Admin Dose 325 MG; Start 06/26/16 at 09:00 Folic Acid (Folic Acid) 1 mg DAILY PO Last administered on 06/28/16 08:15; Admin Dose 1 MG; Start 06/26/16 at 09:00 Gabapentin (Neurontin) 100 mg TID PO Last administered on 06/28/16 13:15; Admin Dose 100 MG; Start 06/26/16 at 09:00 Hydralazine HCl (Apresoline) 50 mg TID PO Last administered on 06/28/16 13:13; Admin Dose 50 MG; Start 06/26/16 at 09:00 Losartan Potassium (Cozaar) 50 mg DAILY PO Last administered on 06/28/16 08:14 ; Admin Dose 50 MG; Start 06/26/16 at 09:00 Tramadol HCl (Ultram) 50 mg BID PRN PO PAIN Last administered on 06/25/16 22:09 ; Admin Dose 50 MG; Start 06/25/16 at 22:00 Diagnostic Test (Pha) (Accucheck) 1 ea 02 XX Last administered on 06/26/16 02: 00; Admin Dose 1 EA; Start 06/26/16 at 02:00 Miscellaneous Information 1 ea NOTE XX ; Start 06/25/16 at 22:30 Glucose (Glutose) 15 gm Q15M PRN PO DECREASED GLUCOSE; Start 06/25/16 at 22:30 Glucose (Glutose) 22.5 gm Q15M PRN PO DECREASED GLUCOSE; Start 06/25/16 at 22:30 Dextrose (D50w Syringe) 25 ml Q15M PRN IV DECREASED GLUCOSE; Start 06/25/16 at 22:30 Dextrose (D50w Syringe) 50 ml Q15M PRN IV DECREASED GLUCOSE; Start 06/25/16 at 22:30 Glucagon (Glucagen) 1 mg Q15M PRN IM DECREASED GLUCOSE; Start 06/25/16 at 22:30 Glucose (Glutose) 15 gm Q15M PRN BUCCAL DECREASED GLUCOSE; Start 06/25/16 at 22: 30 Ondansetron HCl (Zofran Inj) 4 mg Q6H PRN IV NAUSEA AND/OR VOMITING Last administered on 06/27/16 17:42; Admin Dose 4 MG; Start 06/25/16 at 23:00 Acetaminophen (Tylenol Tab) 650 mg Q6H PRN PO PAIN LEVEL 1-3 OR FEVER Last administered on 06/28/16 10:34; Admin Dose 650 MG; Start 06/25/16 at 23:00 Acetaminophen (Tylenol Supp) [address] PAIN LEVEL 1-3 OR FEVER Last administered on 06/27/16 19:01; Admin Dose 650 MG; Start 06/25/16 at 23:00 Docusate Sodium (Colace) 100 mg Q12H PRN PO CONSTIPATION; Start 06/25/16 at 23: 00 Bisacodyl (Dulcolax) 5 mg DAILY PRN PO CONSTIPATION Last administered on 20:18; Admin Dose 5 MG; Start 06/25/16 at 23:00 Clonidine (Catapres) 0.1 mg Q6H PRN PO SBP more than 170 Last administered on 04:59; Admin Dose 0.1 MG; Start 06/26/16 at 15:31 Pantoprazole (Protonix Tab) 40 mg DAILY@06 PO Last administered on 06/28/16 04: 58; Admin Dose 40 MG; Start 06/27/16 at 06:00 Lubiprostone (Amitiza) 24 mcg BID PO Last administered on 06/28/16 08:13; Admin Dose 24 MCG; Start 06/26/16 at 21:00 Lactulose (Enulose) 10 gm BID PRN PO CONSTIPATION Last administered on 10:34; Admin Dose 10 GM; Start 06/27/16 at 18:00 BRIAN GLASGOW MD Jun 28, 2016 17:16
[2016-06-28] MEDS ORDERED: MINERAL OIL 133 ML ENEMA PR ONE (17:30)
[2016-06-28] MEDS: LATANOPROST 0.005% 2.5 ML OPH BOTH EYES SCH (22:25)
[2016-06-28] MEDS: traMADol 50 MG TAB PO PRN (22:52)
[2016-06-29] VITALS (10 sets, daily range): BP systolic 126–160; BP diastolic 58–69; PULSE 57–68; RESP 17–20
[2016-06-29] MEDS: ACCUCHECK XX SCH (01:37)
[2016-06-29] MEDS: PANTOPRAZOLE (EC) 40 MG TAB PO SCH (05:21)
[2016-06-29] MEDS: SEVELAMER CARBONATE 0.8 GM PKT PO SCH ×3 (08:52→17:24)
[2016-06-29] MEDS: INSULIN ASPART [NOVOLOG] 3 ML PEN SC SCH ×3 (08:53→17:24)
[2016-06-29] MEDS: LUBIPROSTONE 24 MCG CAP PO SCH (08:53)
[2016-06-29] MEDS: LOSARTAN 50 MG TAB PO SCH (08:55)
[2016-06-29] MEDS: FOLIC ACID 1 MG TAB PO SCH (08:55)
[2016-06-29] MEDS: AMLODIPINE 10 MG TAB PO SCH (08:56)
[2016-06-29] MEDS: GABAPENTIN 100 MG CAP PO SCH ×2 (08:56→12:10)
[2016-06-29] MEDS ORDERED: DOCUSATE SODIUM 100 MG CAP PO SCH (09:00)
[2016-06-29] MEDS ORDERED: POLYETHYLENE GLYCOL 17 GM PACKET PO SCH (09:00)
--- NOTE | 2016-06-29 16:37 | PDOCDIS ---
Discharge Instructions CONDITION Patient Condition: Stable HOME CARE INSTRUCTIONS: Special Diet: 1800 RENAL ACTIVITY: Activity Restrictions: Slowly Increase Activity FOLLOW UP/APPOINTMENTS Appointments F/U PCP 1 WK MICHELLE MCDANIEL MD Jun 29, 2016 16:37
[2016-06-29] MEDS ORDERED: LUBI24CA7 PO (16:39)
[2016-06-29] MEDS ORDERED: POLY17PO6 PO (16:39)
--- NOTE | 2016-06-29 16:42 | PN ---
Date/Time of Note Date/Time of Note DATE: 06/29/16 TIME: 16:39 Assessment/Plan VTE Prophylaxis VTE Prophylaxis Intervention: other Lines/Catheters IV Catheter Type (from Nrsg): Saline Lock Assessment/Plan Chief Complaint/Hosp Course A/P ESRD HTN ABD PAIN CONSTIPATION PLAN HD BOWEL [facility] Problems: Subjective 24 Hr Interval Summary Subjective hx not possible: other (HAD BM) Exam/Review of Systems Vital Signs Vitals Vital Signs Date Time Temp Pulse Resp B/P Pulse Ox O2 Delivery O2 Flow Rate FiO2 06/29/16 15:51 98.1 57 17 126/59 95 06/28/16 07:23 Nasal Cannula 2.0 Intake and Output 06/28/16 06/28/16 06/29/16 15:00 23:00 07:00 Intake Total 520 ml 120 ml Balance 520 ml 120 ml Exam Neck: supple Respiratory: clear to auscultation Cardiovascular: regular rate and rhythm Gastrointestinal: soft Musculoskeletal: nl extremities to inspection Results Result Diagram: 06/27/16 0907 06/26/16 0929 Results 24 hrs Laboratory Tests Test 06/28/16 17:44 06/28/16 21:57 06/29/16 08:23 06/29/16 11:30 Bedside Glucose 170 139 143 173 Medications Medications Current Medications Nitroglycerin (Nitroglycerin (Sl Tab) 0.4 Mg) 1 tab Q5M PRN SL ANGINA; Start at 21:30 Morphine Sulfate (morphine) 2 mg Q4H PRN IV pain; Start 06/25/16 at 21:30 Amlodipine Besylate (Norvasc) 10 mg DAILY PO Last administered on 06/29/16 08: 56; Admin Dose 10 MG; Start 06/26/16 at 09:00 Latanoprost (Xalatan) 1 drop HS BOTH EYES Last administered on 06/28/16 22:25; Admin Dose 1 DROP; Start 06/26/16 at 21:00 Clonidine (Catapres) 0.1 mg TID PO Last administered on 06/29/16 12:11; Admin Dose 0.1 MG; Start 06/26/16 at 09:00 Folic Acid (Folic Acid) 1 mg DAILY PO Last administered on 06/29/16 08:55; Admin Dose 1 MG; Start 06/26/16 at 09:00 Gabapentin (Neurontin) 100 mg TID PO Last administered on 06/29/16 12:10; Admin Dose 100 MG; Start 06/26/16 at 09:00 Hydralazine HCl (Apresoline) 50 mg TID PO Last administered on 06/29/16 12:10; Admin Dose 50 MG; Start 06/26/16 at 09:00 Losartan Potassium (Cozaar) 50 mg DAILY PO Last administered on 06/29/16 08:55 ; Admin Dose 50 MG; Start 06/26/16 at 09:00 Tramadol HCl (Ultram) 50 mg BID PRN PO PAIN Last administered on 06/28/16 22:52 ; Admin Dose 50 MG; Start 06/25/16 at 22:00 Diagnostic Test (Pha) (Accucheck) 1 ea 02 XX Last administered on 06/26/16 02: 00; Admin Dose 1 EA; Start 06/26/16 at 02:00 Miscellaneous Information 1 ea NOTE XX ; Start 06/25/16 at 22:30 Glucose (Glutose) 15 gm Q15M PRN PO DECREASED GLUCOSE; Start 06/25/16 at 22:30 Glucose (Glutose) 22.5 gm Q15M PRN PO DECREASED GLUCOSE; Start 06/25/16 at 22:30 Dextrose (D50w Syringe) 25 ml Q15M PRN IV DECREASED GLUCOSE; Start 06/25/16 at 22:30 Dextrose (D50w Syringe) 50 ml Q15M PRN IV DECREASED GLUCOSE; Start 06/25/16 at 22:30 Glucagon (Glucagen) 1 mg Q15M PRN IM DECREASED GLUCOSE; Start 06/25/16 at 22:30 Glucose (Glutose) 15 gm Q15M PRN BUCCAL DECREASED GLUCOSE; Start 06/25/16 at 22: 30 Ondansetron HCl (Zofran Inj) 4 mg Q6H PRN IV NAUSEA AND/OR VOMITING Last administered on 06/27/16 17:42; Admin Dose 4 MG; Start 06/25/16 at 23:00 Acetaminophen (Tylenol Tab) 650 mg Q6H PRN PO PAIN LEVEL 1-3 OR FEVER Last administered on 06/28/16 10:34; Admin Dose 650 MG; Start 06/25/16 at 23:00 Acetaminophen (Tylenol Supp) 650 mg Q6H PRN [place] PAIN LEVEL 1-3 OR FEVER Last administered on 06/27/16 19:01; Admin Dose 650 MG; Start 06/25/16 at 23:00 Clonidine (Catapres) 0.1 mg Q6H PRN PO SBP more than 170 Last administered on 04:59; Admin Dose 0.1 MG; Start 06/26/16 at 15:31 Pantoprazole (Protonix Tab) 40 mg DAILY@06 PO Last administered on 06/29/16 05: 21; Admin Dose 40 MG; Start 06/27/16 at 06:00 Lubiprostone (Amitiza) 24 mcg BID PO Last administered on 06/29/16 08:53; Admin Dose 24 MCG; Start 06/26/16 at 21:00 Docusate Sodium (Colace) 200 mg AM PO Last administered on 06/29/16 08:55; Admin Dose 200 MG; Start 06/29/16 at 09:00 Polyethylene Glycol (Miralax) 17 gm DAILY PO Last administered on 06/29/16 08: 56; Admin Dose 17 GM; Start 06/29/16 at 09:00 MICHELLE MCDANIEL MD Jun 29, 2016 16:42
--- NOTE | 2016-06-29 20:57 | CONS ---
Date/Time of Note Date/Time of Note DATE: 06/29/16 TIME: 20:53 Assessment/Plan Assessment/Plan Chief Complaint/Hosp Course Impression: 1. ESRD 2. Iron deficiency anemia: on oral iron supplementation which can be constipating 3. constipation/fecal impaction 4. ABD PAIN secondary to constipation and abdominal pain Recommendation: 1. If patient needs iron replacement therapy, recommend IV iron as oral iron can be constipating. 2. continue standing bowel regimen to ensure nurses give the bowel regimen for now 3. tap water enema PRN 4 management of ESRD per primary and renal consultants 5. ok from GI perspective to dc as her constipation improved if ok with primary and other consultants. Problems: Consultation Date/Type/Reason Admit Date/Time Jun 25, 2016 at 19:12 Initial Consult Date 06/28/16 Type of Consultation: GI 24 HR Interval Summary Free Text/Dictation abdominal pain improved with BM Exam/Review of Systems Vital Signs Vitals Vital Signs Date Time Temp Pulse Resp B/P Pulse Ox O2 Delivery O2 Flow Rate FiO2 06/29/16 16:00 57 06/29/16 15:51 98.1 17 126/59 95 06/28/16 07:23 Nasal Cannula 2.0 Intake and Output 06/28/16 06/28/16 06/29/16 15:00 23:00 07:00 Intake Total 520 ml 120 ml Balance 520 ml 120 ml Exam Constitutional: alert, oriented, well developed Head: atraumatic, normocephalic Eyes: EOMI, nl conjunctiva, nl lids, nl sclera ENMT: mucosa pink and moist, nl external ears & nose, nl lips & teeth, nl nasal mucosa & septum Neck: non-tender, supple Respiratory: clear to auscultation, normal air movement Cardiovascular: nl pulses, regular rate and rhythm Gastrointestinal: bowel sounds, non-tender, soft Results Result Diagram: 06/27/16 0907 06/26/16 0929 Results 24 hrs Laboratory Tests Test 06/28/16 21:57 06/29/16 08:23 06/29/16 11:30 06/29/16 17:19 Bedside Glucose 139 143 173 148 BRIAN GLASGOW MD Jun 29, 2016 20:56
== END 2016-06-29 18:53 | disposition home or self-care (01) | DRG 391 ==
LOC: E/R 16:00 → MS4 19:12
PROVIDERS: ADMIT Internal Medicine Nephrology; ATTEND Internal Medicine Nephrology
PROC: 5A1D60Z (ICD-10-PCS; principal; 2016-06-27)
DX: R10.13 Epigastric pain (principal); N18.6 End stage renal disease; I12.0 Hypertensive chronic kidney disease with stage 5 chronic kidney disease or end stage renal disease; R07.9 Chest pain, unspecified; K59.00 Constipation, unspecified; Z99.2 Dependence on renal dialysis; D50.9 Iron deficiency anemia, unspecified; K56.41 Fecal impaction; K21.9 Gastro-esophageal reflux disease without esophagitis
CPT/HCPCS: 36415; 71010; 74000; 80048; 82962; 84484; 85025; 90935; 93005; 96374; 96375; C9113; J1815; J2270; J2405; P9047

== ENCOUNTER 2016-10-17 21:52 | Inpatient (IN) | payer MEDICARE, BC ==
[~2016-10-17] VITALS: Ht 152.4 cm; Wt 60.2 kg
[~2016-10-17 21:52] MED LIST changes: -APR50 PO; -ASPI-664 PO; -CALC667C PO; +FER325 PO; -FLUO20CA22 PO; +FOLI-49 PO; +HYDR-3672 PO; -HYDR2TAB3 PO; -LEVO250T9 PO; +LUBI24CA7 PO; -ONDA8TAB83 PO; +POLY17PO6 PO; +TRAM-40 PO; -VANC250C12 PO
[2016-10-17] MEDS ORDERED: ASPIRIN 325 MG TAB PO STA (22:13)
[2016-10-17] MEDS ORDERED: LANT3I SC (22:18)
[2016-10-17] MEDS ORDERED: LABETALOL HCL 20MG INJ IV ONE (22:30)
--- NOTE | 2016-10-17 23:08 | RADRPT ---
PROCEDURE: XR Chest. CLINICAL INDICATION: Chest pain TECHNIQUE: Single frontal view of the chest was obtained COMPARISON: 06/25/2016 FINDINGS: Enlargement of the cardiac silhouette is again seen. Calcification in the aortic arch. There is minimal prominence of the lung interstitium likely minimal chronic changes. ECG leads proje cted over the chest. There is no pleural effusion or pneumothorax. IMPRESSION: Enlargement of cardiac silhouette again seen. RPTAT: HJES .Sridhar Hayden MD, MD Date Time Electronically viewed and signed by .Sridhar Hayden MD, MD on 10/17/2016 23:07 .S/
[2016-10-17] MEDS ORDERED: morphine 4 MG/ML VIAL IV STA (23:10)
--- NOTE | 2016-10-17 23:17 | ERA ---
ER Documentation Chief Complaint Date/Time DATE: 10/17/16 TIME: 23:13 Chief Complaint chest pain w/ sob after dialysis today, hypertension HPI 71-year-old female presents for sharp pleuritic substernal chest pain radiating between her shoulder blades with shortness of breath following dialysis. This started following dialysis by about a half hour and has been present for 2 hours now per. States that she always gets chest pain following dialysis but this was much worse. Says that she is taking all of her blood pressure medication normally. She felt well before dialysis. ROS All systems reviewed and are negative except as per history of present illness. Medications Home Meds Active Scripts Polyethylene Glycol* (Miralax*) 17 Gm Powd.pack, 17 GM PO DAILY for 28 Days Prov:MICHELLE MCDANIEL MD 06/29/16 Lubiprostone* (Amitiza*) 24 Mcg Capsule, 24 MCG PO BID for 30 Days, CAP Prov:MICHELLE MCDANIEL MD 06/29/16 Clonidine Hcl* (Clonidine Hcl*) 0.1 Mg Tab, 0.1 MG PO TID for 28 Days, TAB Prov:MICHELLE MCDANIEL MD 06/22/15 Hydralazine Hcl* (Hydralazine Hcl*) 50 Mg Tab, 50 MG PO TID, #180 TAB Prov:OLGA LIDIA FENTON MD 06/20/14 Reported Medications Insulin Glargine* (Lantus*) 100 Unit/Ml Soln, 3 UNIT SC AC MEALS, #1 VIAL 10/17/16 Ferrous Sulfate* (Ferrous Sulfate*) 325 Mg Tabec, 325 MG PO DAILY, TAB 06/25/16 Folic Acid* (Folic Acid*) 1 Mg Tablet, 1 MG PO DAILY, TAB 06/25/16 Tramadol Hcl* (Ultram*) 50 Mg Tablet, 50 MG PO BID Y for PAIN, TAB 06/25/16 Sevelamer Carbonate* (Renvela*) 800 Mg Tablet, 0.8 GM PO WITH MEALS, TAB 09/15/15 Bimatoprost* (Lumigan*) 0.01%-2.5 Ml Opht Drops, 1 DROP BOTH EYES HS, EA 09/15/15 Docusate Sodium* (Dok*) 100 Mg Tablet, 100 MG PO DAILY Y for CONSTIPATION, #30 CAP 08/29/15 Losartan Potassium* (Losartan Potassium*) 50 Mg Tablet, 50 MG PO DAILY 08/15/15 Omeprazole* (Omeprazole*) 20 Mg Capsule.dr, 20 MG PO DAILY, #30 CAP 06/05/15 Amlodipine Besylate* (Amlodipine Besylate*) 10 Mg Tablet, 10 MG PO DAILY, #30 TAB 06/05/15 Gabapentin* (Gabapentin*) 100 Mg Capsule, 100 MG PO TID 08/08/13 Discontinued Scripts Metoclopramide* (Reglan*) 10 Mg Tablet, 10 MG PO AC MEALS AND BEDTIME Y for NAUSEA, #50 TAB Prov:OLGA LIDIA FENTON MD 09/24/15 Allergies Allergies: Coded Allergies: No Known Drug Allergies (Verified Allergy, Unknown, 06/25/16) PMhx/Soc History of Surgery: No Anesthesia Reaction: No Hx Neurological Disorder: Yes (stroke) Hx Respiratory Disorders: No Hx Cardiac Disorders: Yes (HTN) Hx Psychiatric Problems: Yes (depression) Hx Alcohol Use: No Hx Substance Use: No Hx Tobacco Use: No Physical Exam Vitals Vital Signs Date Time Temp Pulse Resp B/P Pulse Ox O2 Delivery O2 Flow Rate FiO2 10/18/16 05:25 75 14 181/72 Nasal Cannula 2.0 10/18/16 03:31 74 13 178/72 100 Nasal Cannula 2.0 10/18/16 01:06 80 17 188/64 100 Room Air 10/17/16 23:45 76 19 147/57 91 Room Air 10/17/16 23:38 77 22 155/58 95 Room Air 10/17/16 23:03 79 28 181/64 97 Room Air 10/17/16 21:54 98.9 77 20 225/93 97 Physical Exam Const: [] Head: Atraumatic Eyes: Normal Conjunctiva ENT: Normal External Ears, Nose and Mouth. Neck: Full range of motion..~ No meningismus. Resp: Clear to auscultation bilaterally Cardio: Regular rate and rhythm, no murmurs Abd: Soft, non tender, non distended. Normal bowel sounds Skin: No petechiae or rashes Back: No midline or flank tenderness Ext: No cyanosis, or edema Neur: Awake and alert Psych: Normal Mood and Affect Result Diagram: 10/17/16 2313 10/17/16 2313 Results 24 hrs Laboratory Tests Test 10/17/16 23:13 White Blood Count 5.810^3/ul Red Blood Count 3.4010^6/ul Hemoglobin 10.0g/dl Hematocrit 29.1% Mean Corpuscular Volume 85.6fl Mean Corpuscular Hemoglobin 29.4pg Mean Corpuscular Hemoglobin Concent 34.4g/dl Red Cell Distribution Width 15.9% Platelet Count 49654^3/UL Mean Platelet Volume 9.3fl Neutrophils % 71.0% Lymphocytes % 12.6% Monocytes % 13.0% Eosinophils % 2.8% Basophils % 0.3% Nucleated Red Blood Cells % 0.0/100WBC Neutrophils # 4.110^3/ul Lymphocytes # 0.710^3/ul Monocytes # 0.810^3/ul Eosinophils # 0.210^3/ul Basophils # 0.010^3/ul Nucleated Red Blood Cells # 0.010^3/ul Prothrombin Time 11.6Sec Prothrombin Time Ratio 0.9 INR International Normalized Ratio 0.85 Activated Partial Thromboplast Time 30.3Sec Sodium Level 131mmol/L Potassium Level 3.4mmol/L Chloride Level 87mmol/L Carbon Dioxide Level 31mmol/L Anion Gap 16 Blood Urea Nitrogen 14mg/dl Creatinine 2.44mg/dl Glucose Level 229mg/dl Calcium Level 9.0mg/dl Troponin I < 0.012ng/ml Current Medications Medications (Trade) Dose Ordered Sig/Leanne Route PRN Reason Start Time Stop Time Status Last Admin Dose Admin Aspirin (Aspirin) 325 mg ONCE STAT PO 10/17/16 22:13 10/17/16 22:14 DC 10/17/16 22:42 Labetalol HCl (Labetalol) 20 mg ONCE ONCE IV 10/17/16 22:30 10/17/16 22:31 DC 10/17/16 23:21 Morphine Sulfate (morphine) 4 mg ONCE STAT IV 10/17/16 23:10 10/17/16 23:11 DC 10/17/16 23:32 Nitroglycerin 1 tab 1 tab ONCE ONCE SL 10/17/16 23:30 10/17/16 23:31 DC 10/17/16 23:40 Sodium Chloride 500 ml @ 500 mls/hr Q1H ONCE IV 10/17/16 23:30 10/18/16 00:29 DC 10/17/16 23:33 Sodium Chloride (NS) 100 ml @ ud STK-MED ONCE .ROUTE 10/18/16 00:19 10/18/16 00:20 DC 10/18/16 00:37 Iohexol (Omnipaque 300mg/ ml) 150 ml STK-MED ONCE .ROUTE 10/18/16 00:19 10/18/16 00:20 DC 10/18/16 00:36 Labetalol HCl (Labetalol) 20 mg ONCE ONCE IV 10/18/16 05:00 10/18/16 05:02 DC 10/18/16 05:17 Ondansetron HCl (Zofran Inj) 4 mg ER BRIDGE PRN IV NAUSEA AND/OR VOMITING 10/18/16 05:30 10/19/16 05:29 Acetaminophen (Tylenol Tab) 650 mg ER BRIDGE PRN PO MILD PAIN/FEVER 10/18/16 05:30 10/19/16 05:29 Procedures/MDM Elderly female with ongoing dyspnea and chest pain. No evidence of dissection or pulmonary embolism. May have a loculated pleural effusion. Symptoms concerning this patient did have some improvement with nitroglycerin. She is also given 4 mg of morphine. Hypertensive crisis on admission. Refractory hypertension requiring a second dose of labetalol his blood pressure began to come up again to a systolic of over 200 couple hours after labetalol dose that did lower her blood pressure. Mild metabolic abnormalities after dialysis including mild hyponatremia and hypokalemia. Patient is still not feeling well and there are no signs of infection I do believe she may benefit from a cardiac workup. Reviewed her EMR from June when she was admitted for chest pain and see no advanced cardiac testing. I spoke with Dr. Mcdaniel who admitting the patient to telemetry EKG interpretation: Normal sinus rhythm rate of 75, left axis deviation, no ST or T-wave changes concerning for acute ischemia. Normal intervals. electrical journeyman interpretation: Normal sinus rhythm without arrhythmia Chest x-ray interpretation: I see no acute process, I see no hemorrhage, no mass -effect or midline shift no skull fracture. CT angiogram chest interpretation: Pleural effusions with possible loculation, no PE, no dissection, no pneumothorax, no infiltrates or fractures per Critical care time 32 minutes: This includes treatment of hypertensive crisis in patient with multiple comorbidities and ongoing chest pain and dyspnea, use of vasoactive medication labetalol, repeat visits the patient's bedside to reassess her cardiothymic status, chart reviewed, discussion with admitting doctor. This does not include any billable procedures Departure Diagnosis: Primary Impression: Chest pain Additional Impressions: Dyspnea Hypertensive crisis Hyponatremia Loculated pleural effusion Condition: Serious BRI DUNN DO Oct 17, 2016 23:17
[2016-10-17 23:30] LABS: ADD SCAN DIFF NO
[2016-10-17] MEDS ORDERED: SOD CHLORIDE 0.9% 500 ML IV ONE (23:30)
[2016-10-17] MEDS ORDERED: NITROGLYCERIN (SL) 0.4 MG TAB SL ONE (23:30)
[2016-10-17 23:32] LABS: BASOPHILS % 0.3 % (0.0-2.0); EOSINOPHILS # 0.2 10^3/ul (0.0-0.5); EOSINOPHILS % 2.8 % (0.0-7.0); HEMATOCRIT 29.1 % (37.0-47.0); LYMPHOCYTES # 0.7 10^3/ul (0.8-2.9); LYMPHOCYTES % 12.6 % (15.0-51.0); MEAN CORPUSCULAR HEMOGLOBIN 29.4 pg (29.0-33.0); MEAN CORPUSCULAR HGB CONC 34.4 g/dl (32.0-37.0); MEAN CORPUSCULAR VOLUME 85.6 fl (82.0-101.0); MEAN PLATELET VOLUME 9.3 fl (7.4-10.4); MONOCYTE # 0.8 10^3/ul (0.3-0.9); NEUTROPHIL # 4.1 10^3/ul (1.6-7.5); PLATELET COUNT 295 10^3/UL (140-415); RED CELL DISTRIBUTION WIDTH 15.9 % (11.5-14.5); WHITE BLOOD COUNT 5.8 10^3/ul (4.8-10.8)
[2016-10-17 23:47] LABS: INR 0.85; PROTIME 11.6 Sec (12.2-14.2); PT RATIO 0.9
[2016-10-17 23:48] LABS: PARTIAL THROMBOPLASTIN TIME 30.3 Sec (25.0-35.0)
[2016-10-17 23:53] LABS: ANION GAP 16 (8-16); BLOOD UREA NITROGEN 14 mg/dl (7-20); CARBON DIOXIDE 31 mmol/L (21-31); CHLORIDE 87 mmol/L (97-110); CREATININE 2.44 mg/dl (0.44-1.00); GLUCOSE 229 mg/dl (70-220); POTASSIUM 3.4 mmol/L (3.5-5.1); SODIUM 131 mmol/L (135-144)
[2016-10-18 00:07] LABS: TROPONIN-I < 0.012 ng/ml (0.00-0.12)
[2016-10-18] MEDS ORDERED: SOD CHLORIDE 0.9% 100 ML ONE (00:19)
[2016-10-18] MEDS ORDERED: IOHEXOL 300MG/ML 150 ML BTL ONE (00:19)
--- NOTE | 2016-10-18 01:11 | RADRPT ---
PROCEDURE: CTA Chest. CLINICAL INDICATION: Chest pain radiates into the mid back. TECHNIQUE: CT angiography of the chest, with axial, sagittal and coronal reformatted images. Auto mated dose exposure controls employed. The total exam CTDI equals 40.29 mGy and the total exam DLP e quals 476.45 mGy-cm. 100 cc Omnipaque-300 nonionic IV contrast were employed. COMPARISON: Chest dated 10/17/2016. FINDINGS: Study is limited secondary to prominent systemic arterial phase and pulmonary venous phase. Otherwi se, no large central or proximal peripheral pulmonary emboli. Bilateral small pleural effusions, left greater than right. There may be a mild degree of loculatio n in the left pleural effusion. Mild dependent atelectasis. No hilar or mediastinal adenopathy. 11 mm pleural-based nodule in the high left major fissure. Otherwise, the pleura and osseous structur es unremarkable. Cardiomegaly without pericardial fluid. Mild atherosclerotic calcifications in th e thoracic aorta, without evident coronary artery calcification. Limited visualization of abdominal viscera is unremarkable. IMPRESSION: 1. Mild bilateral pleural effusions and mild dependent atelectasis. 2. There may be a mild degree of loculation of left pleural effusion. 3. Cardiomegaly. 4. No pulmonary emboli. RPTAT: [facility] Physician Govind Date Time Electronically viewed and signed by Physician Govind on 10/18/2016 01:10 RS/
[2016-10-18] MEDS ORDERED: LABETALOL HCL 20MG INJ IV ONE (05:00)
[2016-10-18] MEDS ORDERED: ACETAMINOPHEN 325 MG TAB PO PRN ×2 (05:30→14:00)
[2016-10-18] MEDS ORDERED: ONDANSETRON 4 MG INJ IV PRN (05:30)
[2016-10-18 06:13] LABS: CREATINE KINASE 46 IU/L (23-200)
[2016-10-18 06:19] LABS: CK-MB 0.74 ng/ml (0.0-2.4); TROPONIN-I < 0.012 ng/ml (0.00-0.12)
[2016-10-18] MEDS ORDERED: hydrALAzine 20 MG INJ ONE (07:57)
[2016-10-18 11:38] LABS: CREATINE KINASE 51 IU/L (23-200)
[2016-10-18 11:59] LABS: CK-MB 0.74 ng/ml (0.0-2.4)
[2016-10-18 12:00] LABS: TROPONIN-I < 0.012 ng/ml (0.00-0.12)
[2016-10-18 13:03] VITALS: PULSE 78
[2016-10-18 13:21] VITALS: Ht 152.4 cm; Wt 60.2 kg
[2016-10-18] MEDS ORDERED: DOCUSATE SODIUM 100 MG CAP PO PRN (14:00)
[2016-10-18] MEDS ORDERED: traMADol 50 MG TAB PO PRN (14:00)
[2016-10-18] MEDS: FOLIC ACID 1 MG TAB PO SCH (14:27)
[2016-10-18] MEDS: FERROUS SULFATE (EC) 325 MG TAB PO SCH (14:27)
[2016-10-18] MEDS: ASPIRIN 81 MG TAB PO SCH (14:27)
[2016-10-18] MEDS: AMLODIPINE 10 MG TAB PO SCH (14:28)
[2016-10-18] MEDS: LOSARTAN 50 MG TAB PO SCH (14:28)
[2016-10-18] MEDS: POLYETHYLENE GLYCOL 17 GM PACKET PO SCH (14:28)
--- NOTE | 2016-10-18 14:38 | HP ---
Date/Time of Note Date/Time of Note DATE: 10/18/16 TIME: 14:30 Assessment/Plan VTE Prophylaxis VTE Prophylaxis Intervention: ambulation Lines/Catheters IV Catheter Type (from Nrsg): Peripheral IV Assessment/Plan Chief Complaint/Hosp Course 1. Chest pain 2. 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 ESRD 4. HTN 5. Osteoporosis 6. Rule out pleural effusion Problems: Assessment/Plan 1. Telemetry monitoring 2. Restore all home medications 3. Continue HD HPI/ROS Admit Date/Time Admit Date/Time Oct 18, 2016 at 05:13 Hx of Present Illness 71-year-old female presents for sharp pleuritic substernal chest pain radiating between her shoulder blades with shortness of breath following dialysis to ER. Pt reported often chest pain following dialysis but this was much worse. Denied irradiation, fatigue or SOB ROS Eyes: visual change (right eye, has drops for glaucoma) Respiratory: no complaints Cardiovascular: chest pain, lightheadedness (3 month) Gastrointestinal: no complaints Genitourinary: no complaints Musculoskeletal: no complaints Skin: no complaints Neurologic: no complaints PMH/Family/Social Past Medical History Medical History: angina, diabetes, high cholesterol, hypertension, renal disease, urinary tract infection (often), other (neuropathy) Past Surgical History Past Surgical Hx: noncontributory (right eye surgery, AV placement right arm ) , endoscopy Family History Significant Family History: no pertinent family hx Social History lives with son Alcohol Use: none Smoking Status: Never smoker Drug Use: none Exam/Review of Systems Vital Signs Vitals Vital Signs Date Time Temp Pulse Resp B/P Pulse Ox O2 Delivery O2 Flow Rate FiO2 10/18/16 13:03 78 10/18/16 12:02 18 171/68 100 Nasal Cannula 2.0 10/17/16 21:54 98.9 Exam Constitutional: alert, oriented, well developed Head: normocephalic Eyes: nl conjunctiva ENMT: nl external ears & nose, other (edentulouse) Respiratory: congested cough, crackles/rales Cardiovascular: regular rate and rhythm Gastrointestinal: soft Genitourinary - Female: nl external genitalia Musculoskeletal: nl extremities to inspection Labs Result Diagram: 10/17/16 3308 10/17/16 9883 Medications Medications Current Medications Hydralazine HCl (Apresoline) 10 mg Q6H PRN IV ELEVATED SYSTOLIC BP; Start 6/24 /17 at 08:00 Amlodipine Besylate (Norvasc) 10 mg DAILY PO Last administered on 10/18/16 14: 28; Admin Dose 10 MG; Start 10/18/16 at 14:00 Latanoprost (Xalatan) 1 drop HS LEFT EYE ; Start 10/18/16 at 21:00 Clonidine (Catapres) 0.1 mg TID PO ; Start 10/18/16 at 21:00 Docusate Sodium (Colace) 100 mg DAILY PRN PO CONSTIPATION; Start 10/18/16 at 14 :00 Ferrous Sulfate (Ferrous Sulfate (Ec)) 325 mg DAILY PO Last administered on 14:27; Admin Dose 325 MG; Start 10/18/16 at 14:00 Folic Acid (Folic Acid) 1 mg DAILY PO Last administered on 10/18/16 14:27; Admin Dose 1 MG; Start 10/18/16 at 14:00 Gabapentin (Neurontin) 100 mg TID PO ; Start 10/18/16 at 21:00 Hydralazine HCl (Apresoline) 50 mg TID PO ; Start 10/18/16 at 21:00 Losartan Potassium (Cozaar) 50 mg DAILY PO Last administered on 10/18/16 14:28 ; Admin Dose 50 MG; Start 10/18/16 at 14:00 Lubiprostone (Amitiza) 24 mcg BID PO ; Start 10/18/16 at 14:30 Polyethylene Glycol (Miralax) 17 gm DAILY PO Last administered on 10/18/16 14: 28; Admin Dose 17 GM; Start 10/18/16 at 14:00 Tramadol HCl (Ultram) 50 mg BID PRN PO PAIN Last administered on 10/18/16 14: 28; Admin Dose 50 MG; Start 10/18/16 at 14:00 Pantoprazole (Protonix Tab) 40 mg DAILY@06 PO ; Start 10/19/16 at 06:00 Aspirin (Aspirin) 81 mg DAILY PO Last administered on 10/18/16 14:27; Admin Dose 81 MG; Start 10/18/16 at 14:00 Acetaminophen (Tylenol Tab) 650 mg Q4H PRN PO PAIN AND OR ELEVATED TEMP; Start 10/18/16 at 14:00 Ondansetron HCl (Zofran Inj) 4 mg Q6H PRN IV NAUSEA AND/OR VOMITING; Start at 14:00 ERIK PERALES Oct 18, 2016 14:38
[2016-10-18 15:24] VITALS: BP 192/81; RESP 20
[2016-10-18 16:28] VITALS: PULSE 78
[2016-10-18] MEDS: SEVELAMER CARBONATE 0.8 GM PKT PO SCH (17:22)
[2016-10-18] MEDS: INSULIN ASPART [NOVOLOG] 3 ML PEN SC SCH ×2 (17:22→20:24)
[2016-10-18] MEDS: LUBIPROSTONE 24 MCG CAP PO SCH ×2 (17:22→22:56)
[2016-10-18] MEDS ORDERED: GLUCOSE GEL 15 GRAM TUBE BUCCAL PRN (17:30)
[2016-10-18] MEDS ORDERED: GLUCOSE GEL 15 GRAM TUBE PO PRN ×2 (17:30)
[2016-10-18] MEDS ORDERED: GLUCAGON 1 MG INJ IM PRN (17:30)
[2016-10-18] MEDS ORDERED: DEXTROSE 50% 50 ML SYRINGE IV PRN ×2 (17:30)
[2016-10-18] MEDS ORDERED: PANTOPRAZOLE (EC) 40 MG TAB PO ONE (18:00)
[2016-10-18] MEDS ORDERED: POTASSIUM CHLORIDE (SR) 8 MEQ CAP PO ONE (18:00)
[2016-10-18] MEDS: ONDANSETRON 4 MG INJ IV PRN (18:14)
[2016-10-18] MEDS: hydrALAzine 20 MG INJ IV PRN (18:47)
[2016-10-18 18:48] VITALS: BP 184/87; PULSE 81
[2016-10-18 20:07] VITALS: BP 169/73; RESP 16
[2016-10-18] MEDS: METOCLOPRAMIDE 10 MG INJ IV PRN (20:53)
[2016-10-18 20:58] VITALS: PULSE 79
[2016-10-18] MEDS ORDERED: NITROGLYCERIN (SL) 0.4 MG TAB SL PRN (21:00)
[2016-10-18] MEDS: GABAPENTIN 100 MG CAP PO SCH (21:12)
[2016-10-18] MEDS: LATANOPROST 0.005% 2.5 ML OPH LEFT EYE SCH (21:12)
[2016-10-19] VITALS (22 sets, daily range): BP systolic 124–187; BP diastolic 60–88; PULSE 70–80; RESP 17–20
[2016-10-19] MEDS: ONDANSETRON 4 MG INJ IV PRN (00:54)
[2016-10-19] MEDS: ACCU-CHEK XX SCH ×2 (00:55→23:50)
[2016-10-19] MEDS: PANTOPRAZOLE (EC) 40 MG TAB PO SCH (05:28)
[2016-10-19 06:32] LABS: ADD SCAN DIFF NO
[2016-10-19 06:44] LABS: BASOPHILS % 0.6 % (0.0-2.0); EOSINOPHILS # 0.2 10^3/ul (0.0-0.5); EOSINOPHILS % 3.5 % (0.0-7.0); HEMATOCRIT 28.4 % (37.0-47.0); HEMOGLOBIN 9.4 g/dl (12.0-16.0); LYMPHOCYTES # 1.1 10^3/ul (0.8-2.9); LYMPHOCYTES % 16.2 % (15.0-51.0); MEAN CORPUSCULAR HEMOGLOBIN 28.9 pg (29.0-33.0); MEAN CORPUSCULAR HGB CONC 33.1 g/dl (32.0-37.0); MEAN CORPUSCULAR VOLUME 87.4 fl (82.0-101.0); MEAN PLATELET VOLUME 9.6 fl (7.4-10.4); MONOCYTE # 0.7 10^3/ul (0.3-0.9); MONOCYTES % 11.2 % (0.0-11.0); NEUTROPHIL # 4.5 10^3/ul (1.6-7.5); PLATELET COUNT 294 10^3/UL (140-415); RED BLOOD COUNT 3.25 10^6/ul (4.20-5.40); RED CELL DISTRIBUTION WIDTH 16.5 % (11.5-14.5); WHITE BLOOD COUNT 6.6 10^3/ul (4.8-10.8)
[2016-10-19 07:18] LABS: CREATININE 4.45 mg/dl (0.44-1.00); POTASSIUM 5.3 mmol/L (3.5-5.1)
[2016-10-19] MEDS: INSULIN ASPART [NOVOLOG] 3 ML PEN SC SCH ×4 (07:55→20:51)
[2016-10-19] MEDS: SEVELAMER CARBONATE 0.8 GM PKT PO SCH ×3 (08:18→16:38)
[2016-10-19] MEDS: GABAPENTIN 100 MG CAP PO SCH ×3 (08:18→20:49)
[2016-10-19] MEDS: POLYETHYLENE GLYCOL 17 GM PACKET PO SCH (08:18)
[2016-10-19] MEDS: ASPIRIN 81 MG TAB PO SCH (08:18)
[2016-10-19] MEDS: LOSARTAN 50 MG TAB PO SCH (08:18)
[2016-10-19] MEDS: AMLODIPINE 10 MG TAB PO SCH (08:18)
[2016-10-19] MEDS: FERROUS SULFATE (EC) 325 MG TAB PO SCH (08:18)
[2016-10-19] MEDS: LUBIPROSTONE 24 MCG CAP PO SCH ×2 (08:19→20:49)
[2016-10-19] MEDS: FOLIC ACID 1 MG TAB PO SCH (08:19)
[2016-10-19] MEDS: METOCLOPRAMIDE 10 MG INJ IV PRN ×2 (09:02→17:51)
--- NOTE | 2016-10-19 15:56 | RADRPT ---
Echocardiogram Report Patient Name: KAVON PAL Gender: Female Date: 1945 Study Date: 18-Oct-2016 [employer] Operator: JAZLYN Location: Height(Cm): 152 Weight(Kg): 60 BSA: 1.59 Ref. Physician: Quality: Adequate Procedures: Transthoracic echocardiogram with complete 2D, M-Mode, and doppler examination. Indications: Chest Pain. 2D/M Mode Doppler Measurement Value Normal Ranges Measurement Value Normal Ranges AoR Diam MM 3.0 cm AV Peak Murali 1.7 m/sec ACS MM 1.7 cm AV Peak PG 11.5 mmHg LVIDd 2D 5.8 3.5 - 5.6 cm LVOT Peak Murali 0.9 m/sec LVIDs 2D 3.5 2.1 - 4.1 cm LVOT Peak PG 3.6 mmHg LVPWd 2D 1.2 0.6 - 1.1 cm MV E Peak Murali 1.2 m/sec IVSd 2D 1.4 0.6 - 1.1 cm MV A Peak Murali 1.4 m/sec EDV 2D 166.3 cm3 MV E/A 0.8 ESV 2D 44.3 cm3 MV Decel Time 246 msec LA Dimen 2D 4.1 2.3 - 4.0 cm MV Decel Gilliam 5 MV E/A 0.8 TR Peak Murali 3.8 m/sec TR Peak PG 56.3 mmHg PV Peak Murali 1.2 m/sec PV Peak PG 6.0 mmHg RVSP 59.3 mmHg Findings Left Ventricle: Normal left ventricular systolic function. Mild concentric left ventricular hypertrophy. Mild enlargement of left ventricle cavity. Ejection fraction is visually estimated at 60 %. Tissue Doppler/Mitral Doppler indices are consistent with impaired relaxation (Stage I diastolic dysfunction). E/E`=13. E`=0 cm/s. Right Ventricle: Normal right ventricular size. Normal right ventricular systolic function. Left Atrium: There is severe enlargement of left atrium, best appreciated by LA volume index of 50 ml/m2. Right Atrium: There is mild enlargement of right atrium. Atrial Septum: Normal atrial septum. Mitral Valve: Mild mitral annular calcification. Moderate mitral valve regurgitation. Aortic Valve: No significant aortic stenosis or insufficiency. Normal trileaflet aortic valve structure. Tricuspid Valve: Normal appearance of the tricuspid valve. Estimated peak PA systolic pressure 59 mmHg. There is mild to moderate tricuspid regurgitation. Pulmonic Valve: Normal pulmonic valve appearance. No evidence of pulmonic regurgitation. Pericardium: Normal pericardium with no significant pericardial effusion. Right pleural effusion seen. Aorta: Normal aortic root. IVC: Normal size and normal respiratory collapse consistent with normal right atrial pressure. Pulmonary Artery: Normal pulmonary artery size. Conclusions 1.Normal left ventricular systolic function. Mild concentric left ventricular hypertrophy. Mild enlargement of left ventricle cavity. Ejection fraction is visually estimated at 60 %. Tissue Doppler/Mitral Doppler indices are consistent with impaired relaxation (Stage I diastolic dysfunction). E/E`=13. E`=0 cm/s. 2.No significant aortic stenosis or insufficiency. Normal trileaflet aortic valve structure. 3.Normal appearance of the tricuspid valve. Estimated peak PA systolic pressure 59 mmHg. There is mild to moderate tricuspid regurgitation. 4.Mild mitral annular calcification. Moderate mitral valve regurgitation. Electronically Signed By: Dionte Morrissey 19-Oct-2016 15:55:14 -[id number] Patient Name: KAVON PAL Study Date: 18-Oct-2016 [id number]
--- NOTE | 2016-10-19 17:42 | CONS ---
DATE OF ADMISSION: 10/19/2016 DATE OF CONSULTATION: 10/19/2016 REFERRING PHYSICIAN: Dr. Cooney. REASON FOR EVALUATION: Chest pain, shortness of breath. HISTORY OF PRESENT ILLNESS: Mr. Lipscomb is a 71 -year-old woman with hypertension, dyslipidemia, histo ry of cardiomyopathy with last documented 45%, history of end-stage renal disease on hemodialysis, h istory of a Lexiscan in 06/16/2016 showing no reversible defect was performed per Dr. Salcedo. She c omes to the hospital now for evaluation hypertension and some shortness of breath. The patient had some chest discomfort which subsided now. Patient is not the most consistent historian. She did ap pear to be with some degree of fluid overload. The patient does not report any chest pain at this p oint and her blood pressure is better controlled. For now, conservative therapy is expected. We wi ll continue rule out protocol. Given the patient had recent negative stress test, no further stress test is required. If patient continues to have chest patient, she might require a left heart cathet erization to rule out false positive stress test. PAST MEDICAL HISTORY: 1. Hypertension. 2. Dyslipidemia. 3. Diabetes. 4. History of uncontrolled hypertension. 5. End-stage renal disease. 6. History of pleural effusion. ALLERGIES: NO KNOWN DRUG ALLERGIES. SOCIAL HISTORY: The patient does not smoke, does not drink, does not use drugs. FAMILY HISTORY: Negative for sudden cardiac or premature coronary artery disease. MEDICATIONS: Include 1. Protonix 40 mg p.o. once a day. 2. Xalatan 3. Clonidine 0.1 mg t.i.d. 4. Neurontin. 5. Hydralazine 10 mg t.i.d. 6. Nitroglycerin insulin sliding scale glucose. 7. iron supplements 8. Aspirin 81 mg a day. 9. Tramadol. 10. Hydralazine. REVIEW OF SYSTEMS: CONSTITUTIONAL: Denies fevers, no chills, shortness of breath. HEENT: No changes in vision or hearing. CARDIAC: No chest pain reported now. RESPIRATORY: Shortness of breath. GASTROINTESTINAL: No nausea, vomiting. GENITOURINARY: No dysuria, hematuria. EXTREMITIES: No evidence of stenosis. HEMATOLOGIC: History of coronary artery disease. PSYCHIATRIC: No history of CVA was noted. PHYSICAL EXAMINATION: VITAL SIGNS: Temperature is 98.0, heart rate 62, blood pressure now 164/70. GENERAL: She is an obese woman in no acute distress, alert and oriented x3, speaking Palestinian. HEAD: Normocephalic, atraumatic. Eyes anicteric. NECK: Supple. JVD 6-7 cm. There is no lymphadenopathy. HEART: Regular with PMI displaced. LUNGS: Coarse at bases. ABDOMEN: Distended, bowel sounds are present. There is no hepatosplenomegaly. GENITOURINARY: ____. EXTREMITIES: Show no cyanosis, trace edema. SKIN: Showed bruises or herniation. NEUROLOGICAL: She is able to move her extremities. LABORATORY DATA: White blood cell count 6.6, hemoglobin is 9.4, platelets 294. INR is 0.8. Sodium 128, potassium 5.3, creatinine 30, glucose is 4.5. Troponins are negative at 0.012. ECG reviewed b y me shows that the patient is in sinus rhythm at [address]-T changes. ASSESSMENT AND PLAN: 1. Chest pain. The patient has history of chest pains in the past. She had a recent stress test i n May of this year with Dr. Salcedo, which shows a fairly preserved ejection fraction with no i schemia. I think for now, conservative therapy is expected. If patient continues to have chest gerri n. She might need a left heart catheterization to rule out false positive stress test. 2. Hypertension. Blood pressure was high side on admission. Continue to treat with multiple medic ations 3. End-stage renal disease. Continue patient on hemodialysis. Dr. Becerra will follow. 4. Hyponatremia, likely with fluid overload. The patient to undergo dialysis as needed. 5. Diabetes. Continue diabetic optimization per primary team. We will review medications as neede d. I would like to thank Dr. Becerra for referring this patient for my evaluation. Dictated By: TOBI CHERRY MD ML/NTS Conf#: [id number] DID#: [id number]
--- NOTE | 2016-10-19 18:30 | PN ---
Date/Time of Note Date/Time of Note DATE: 10/19/16 TIME: 18:29 Assessment/Plan VTE Prophylaxis VTE Prophylaxis Intervention: other Lines/Catheters IV C[facility] Type [facility]from [facility] Saline Lock Urinary Cath still in place: No Assessment/Plan Chief Complaint/Hosp Course ESRD HTN HYPERKALEMIA PLAN HD Problems: Subjective 24 Hr Interval Summary Cardiovascular: no complaints Gastrointestinal: no complaints Exam/Review of Systems Vital Signs Vitals Vital Signs Date Time Temp Pulse Resp B/P Pulse Ox O2 Delivery O2 Flow Rate FiO2 10/19/16 17:48 154/64 10/19/16 16:11 75 10/19/16 15:04 98.7 20 95 10/18/16 20:15 Nasal Cannula 2.0 Intake and Output 10/18/16 10/18/16 10/19/16 14:59 22:59 06:59 Intake Total 480 ml 200 ml Balance 480 ml 200 ml Exam Cardiovascular: regular rate and rhythm Gastrointestinal: bowel sounds, soft Results Result Diagram: 10/19/16 0535 10/19/16 0535 Results 24 hrs Laboratory Tests Test 10/18/16 20:22 10/19/16 00:48 10/19/16 05:35 10/19/16 08:16 Bedside Glucose 166 110 Troponin I < 0.012 < 0.012 White Blood Count 6.6 Red Blood Count 3.25 L Hemoglobin 9.4 L Hematocrit 28.4 L Mean Corpuscular Volume 87.4 Mean Corpuscular Hemoglobin 28.9 L Mean Corpuscular Hemoglobin Concent 33.1 Red Cell Distribution Width 16.5 H Platelet Count 294 Mean Platelet Volume 9.6 Neutrophils % 68.0 Lymphocytes % 16.2 Monocytes % 11.2 H Eosinophils % 3.5 Basophils % 0.6 Nucleated Red Blood Cells % 0.0 Neutrophils # 4.5 Lymphocytes # 1.1 Monocytes # 0.7 Eosinophils # 0.2 Basophils # 0.0 Nucleated Red Blood Cells # 0.0 Sodium Level 128 L Potassium Level 5.3 H Chloride Level 89 L Carbon Dioxide Level 29 Anion Gap 15 Blood Urea Nitrogen 30 #H Creatinine 4.45 #H Glucose Level 112 # Calcium Level 8.0 L Test 10/19/16 11:51 10/19/16 17:44 Bedside Glucose 171 111 Medications Medications Current Medications Hydralazine HCl (Apresoline) 10 mg Q6H PRN IV ELEVATED SYSTOLIC BP Last administered on 10/18/16 18:47; Admin Dose 10 MG; Start 10/18/16 at 08:00 Amlodipine Besylate (Norvasc) 10 mg DAILY PO Last administered on 10/19/16 08: 18; Admin Dose 10 MG; Start 10/18/16 at 14:00 Latanoprost (Xalatan) 1 drop HS LEFT EYE Last administered on 10/18/16 21:12; Admin Dose 1 DROP; Start 10/18/16 at 21:00 Clonidine (Catapres) 0.1 mg TID PO Last administered on 10/19/16 08:19; Admin Dose 0.1 MG; Start 10/18/16 at 21:00 Docusate Sodium (Colace) 100 mg DAILY PRN PO CONSTIPATION; Start 10/18/16 at 14 :00 Ferrous Sulfate (Ferrous Sulfate (Ec)) 325 mg DAILY PO Last administered on 08:18; Admin Dose 325 MG; Start 10/18/16 at 14:00 Folic Acid (Folic Acid) 1 mg DAILY PO Last administered on 10/19/16 08:19; Admin Dose 1 MG; Start 10/18/16 at 14:00 Gabapentin (Neurontin) 100 mg TID PO Last administered on 10/19/16 12:06; Admin Dose 100 MG; Start 10/18/16 at 21:00 Hydralazine HCl (Apresoline) 50 mg TID PO Last administered on 10/19/16 08:19 ; Admin Dose 50 MG; Start 10/18/16 at 21:00 Losartan Potassium (Cozaar) 50 mg DAILY PO Last administered on 10/19/16 08:18 ; Admin Dose 50 MG; Start 10/18/16 at 14:00 Lubiprostone (Amitiza) 24 mcg BID PO Last administered on 10/19/16 08:19; Admin Dose 24 MCG; Start 10/18/16 at 14:30 Polyethylene Glycol (Miralax) 17 gm DAILY PO Last administered on 10/19/16 08: 18; Admin Dose 17 GM; Start 10/18/16 at 14:00 Tramadol HCl (Ultram) 50 mg BID PRN PO PAIN Last administered on 10/18/16 14: 28; Admin Dose 50 MG; Start 10/18/16 at 14:00 Pantoprazole (Protonix Tab) 40 mg DAILY@06 PO Last administered on 10/19/16 05 :28; Admin Dose 40 MG; Start 10/19/16 at 06:00 Aspirin (Aspirin) 81 mg DAILY PO Last administered on 10/19/16 08:18; Admin Dose 81 MG; Start 10/18/16 at 14:00 Acetaminophen (Tylenol Tab) 650 mg Q4H PRN PO PAIN AND OR ELEVATED TEMP Last administered on 10/18/16 21:13; Admin Dose 650 MG; Start 10/18/16 at 14:00 Ondansetron HCl (Zofran Inj) 4 mg Q6H PRN IV NAUSEA AND/OR VOMITING Last administered on 10/19/16 00:54; Admin Dose 4 MG; Start 10/18/16 at 14:00 Diagnostic Test (Pha) (Accu-Chek) 1 ea 02 XX ; Start 10/19/16 at 02:00 Miscellaneous Information 1 ea NOTE XX ; Start 10/18/16 at 17:30 Glucose (Glutose) 15 gm Q15M PRN PO DECREASED GLUCOSE; Start 10/18/16 at 17:30 Glucose (Glutose) 22.5 gm Q15M PRN PO DECREASED GLUCOSE; Start 10/18/16 at 17: 30 Dextrose (D50w Syringe) 25 ml Q15M PRN IV DECREASED GLUCOSE; Start 10/18/16 at 17:30 Dextrose (D50w Syringe) 50 ml Q15M PRN IV DECREASED GLUCOSE; Start 10/18/16 at 17:30 Glucagon (Glucagen) 1 mg Q15M PRN IM DECREASED GLUCOSE; Start 10/18/16 at 17:30 Glucose (Glutose) 15 gm Q15M PRN BUCCAL DECREASED GLUCOSE; Start 10/18/16 at 17 :30 Metoclopramide HCl (Reglan) 10 mg Q6H PRN IV NAUSEA Last administered on 17:51; Admin Dose 10 MG; Start 10/18/16 at 21:00 Nitroglycerin (Nitroglycerin (Sl Tab) 0.4 Mg) 1 tab Q5M PRN SL ANGINA; Start at 21:00 MICHELLE MCDANIEL MD Oct 19, 2016 18:30
[2016-10-19] MEDS: LATANOPROST 0.005% 2.5 ML OPH LEFT EYE SCH (20:53)
[2016-10-20] VITALS (13 sets, daily range): BP systolic 129–182; BP diastolic 59–82; PULSE 62–82; RESP 16–20
[2016-10-20] MEDS: hydrALAzine 20 MG INJ IV PRN (04:17)
[2016-10-20] MEDS: PANTOPRAZOLE (EC) 40 MG TAB PO SCH (05:35)
[2016-10-20] MEDS: INSULIN ASPART [NOVOLOG] 3 ML PEN SC SCH ×4 (07:55→21:00)
--- NOTE | 2016-10-20 07:59 | CONS ---
Date/Time of Note Date/Time of Note DATE: 10/20/16 TIME: 07:58 Assessment/Plan Assessment/Plan Additional Assessment/Plan 1. Chest pain. The patient has history of chest pains in the past. She had a recent stress test in May of this year with Dr. Salcedo, which shows a fairly preserved ejection fraction with no ischemia. I think for now, conservative therapy is expected. If patient continues to have chest pain. She might need a left heart catheterization to rule out false positive stress test. NO CP NOW. 2. Hypertension. Blood pressure was high side on admission. Continue to treat with multiple medications - HIGH, HD To RX. 3. End-stage renal disease. Continue patient on hemodialysis. Dr. Becerra will follow. 4. Hyponatremia, likely with fluid overload. The patient to undergo dialysis as needed. Rx with fluid adjustment. 5. Diabetes. Continue diabetic optimization per primary team. We will review medications as needed. Consultation Date/Type/Reason Admit Date/Time Oct 19, 2016 at 09:45 Initial Consult Date 24 HR Interval Summary Free Text/Dictation NO acute events - BP high - pending am meds. No CP now. ROS: No fever, no chills, no nausea, no vomiting, no diarrhea/constipation No recent weight changes No chest pain, no PND, no orthopnea No dizziness, blurred vision No thirst, no heat or cold intolerance Exam/Review of Systems Vital Signs Vitals Vital Signs Date Time Temp Pulse Resp B/P Pulse Ox O2 Delivery O2 Flow Rate FiO2 10/20/16 05:33 64 129/62 10/20/16 04:09 98.2 18 94 Room Air 10/19/16 23:56 2.0 Intake and Output 10/19/16 10/19/16 10/20/16 15:00 23:00 07:00 Intake Total 300 ml 480 ml 300 ml Output Total 4300 ml Balance -4000 ml 480 ml 300 ml Exam General: WN/WD/NAD, AOx 2-3 [place] HEENT: Unicetric/atraumatic/EOMI (follow commands) NECK: JVD elevated, no thyromegaly Lymph: no lymphadenopathy HEART: regular with no S3, II/ systolic murmur at apex LUNGS: Coarse sounds ABD: soft, NT, ND, +BS : Intact Neuro: non focal SKIN: chronic changes EXT: trace edema Results Result Diagram: 10/19/16 0535 10/19/16 0535 Results 24 hrs Laboratory Tests Test 10/19/16 08:16 10/19/16 11:51 10/19/16 17:44 10/19/16 20:48 Bedside Glucose 110 171 111 135 Medications Medications Current Medications Hydralazine HCl (Apresoline) 10 mg Q6H PRN IV ELEVATED SYSTOLIC BP Last administered on 10/20/16 04:17; Admin Dose 10 MG; Start 10/18/16 at 08:00 Amlodipine Besylate (Norvasc) 10 mg DAILY PO Last administered on 10/19/16 08: 18; Admin Dose 10 MG; Start 10/18/16 at 14:00 Latanoprost (Xalatan) 1 drop HS LEFT EYE Last administered on 10/19/16 20:53; Admin Dose 1 DROP; Start 10/18/16 at 21:00 Clonidine (Catapres) 0.1 mg TID PO Last administered on 10/19/16 20:49; Admin Dose 0.1 MG; Start 10/18/16 at 21:00 Docusate Sodium (Colace) 100 mg DAILY PRN PO CONSTIPATION; Start 10/18/16 at 14 :00 Ferrous Sulfate (Ferrous Sulfate (Ec)) 325 mg DAILY PO Last administered on 08:18; Admin Dose 325 MG; Start 10/18/16 at 14:00 Folic Acid (Folic Acid) 1 mg DAILY PO Last administered on 10/19/16 08:19; Admin Dose 1 MG; Start 10/18/16 at 14:00 Gabapentin (Neurontin) 100 mg TID PO Last administered on 10/19/16 20:49; Admin Dose 100 MG; Start 10/18/16 at 21:00 Hydralazine HCl (Apresoline) 50 mg TID PO Last administered on 10/19/16 20:49 ; Admin Dose 50 MG; Start 10/18/16 at 21:00 Losartan Potassium (Cozaar) 50 mg DAILY PO Last administered on 10/19/16 08:18 ; Admin Dose 50 MG; Start 10/18/16 at 14:00 Lubiprostone (Amitiza) 24 mcg BID PO Last administered on 10/19/16 20:49; Admin Dose 24 MCG; Start 10/18/16 at 14:30 Polyethylene Glycol (Miralax) 17 gm DAILY PO Last administered on 10/19/16 08: 18; Admin Dose 17 GM; Start 10/18/16 at 14:00 Tramadol HCl (Ultram) 50 mg BID PRN PO PAIN Last administered on 10/18/16 14: 28; Admin Dose 50 MG; Start 10/18/16 at 14:00 Pantoprazole (Protonix Tab) 40 mg DAILY@06 PO Last administered on 10/20/16 05 :35; Admin Dose 40 MG; Start 10/19/16 at 06:00 Aspirin (Aspirin) 81 mg DAILY PO Last administered on 10/19/16 08:18; Admin Dose 81 MG; Start 10/18/16 at 14:00 Acetaminophen (Tylenol Tab) 650 mg Q4H PRN PO PAIN AND OR ELEVATED TEMP Last administered on 10/18/16 21:13; Admin Dose 650 MG; Start 10/18/16 at 14:00 Ondansetron HCl (Zofran Inj) 4 mg Q6H PRN IV NAUSEA AND/OR VOMITING Last administered on 10/19/16 00:54; Admin Dose 4 MG; Start 10/18/16 at 14:00 Diagnostic Test (Pha) (Accu-Chek) 1 ea 02 XX ; Start 10/19/16 at 02:00 Miscellaneous Information 1 ea NOTE XX ; Start 10/18/16 at 17:30 Glucose (Glutose) 15 gm Q15M PRN PO DECREASED GLUCOSE; Start 10/18/16 at 17:30 Glucose (Glutose) 22.5 gm Q15M PRN PO DECREASED GLUCOSE; Start 10/18/16 at 17: 30 Dextrose (D50w Syringe) 25 ml Q15M PRN IV DECREASED GLUCOSE; Start 10/18/16 at 17:30 Dextrose (D50w Syringe) 50 ml Q15M PRN IV DECREASED GLUCOSE; Start 10/18/16 at 17:30 Glucagon (Glucagen) 1 mg Q15M PRN IM DECREASED GLUCOSE; Start 10/18/16 at 17:30 Glucose (Glutose) 15 gm Q15M PRN BUCCAL DECREASED GLUCOSE; Start 10/18/16 at 17 :30 Metoclopramide HCl (Reglan) 10 mg Q6H PRN IV NAUSEA Last administered on 17:51; Admin Dose 10 MG; Start 10/18/16 at 21:00 Nitroglycerin (Nitroglycerin (Sl Tab) 0.4 Mg) 1 tab Q5M PRN SL ANGINA; Start at 21:00 TOBI CHERRY MD Oct 20, 2016 07:59
[2016-10-20] MEDS: POLYETHYLENE GLYCOL 17 GM PACKET PO SCH (08:33)
[2016-10-20] MEDS: ASPIRIN 81 MG TAB PO SCH (08:34)
[2016-10-20] MEDS: SEVELAMER CARBONATE 0.8 GM PKT PO SCH ×3 (08:34→17:12)
[2016-10-20] MEDS: LOSARTAN 50 MG TAB PO SCH (08:34)
[2016-10-20] MEDS: GABAPENTIN 100 MG CAP PO SCH ×3 (08:34→21:27)
[2016-10-20] MEDS: AMLODIPINE 10 MG TAB PO SCH (08:34)
[2016-10-20] MEDS: FERROUS SULFATE (EC) 325 MG TAB PO SCH (08:34)
[2016-10-20] MEDS: LUBIPROSTONE 24 MCG CAP PO SCH ×2 (08:34→21:27)
[2016-10-20] MEDS: FOLIC ACID 1 MG TAB PO SCH (08:35)
[2016-10-20 08:38] LABS: CALCIUM 8.9 mg/dl (8.4-10.2); CREATININE 4.1 mg/dl (0.44-1.00); POTASSIUM 4.6 mmol/L (3.5-5.1)
--- NOTE | 2016-10-20 18:41 | PN ---
Date/Time of Note Date/Time of Note DATE: 10/20/16 TIME: 18:39 Assessment/Plan VTE Prophylaxis VTE Prophylaxis Intervention: other Lines/Catheters IV Catheter Type (from Nrs): Peripheral IV Urinary Cath still in place: No Assessment/Plan Chief Complaint/Hosp Course ESRD HTN HYPERKALEMIA BETTER CONSTIPATION PLAN HD BOWEL CARE Problems: Subjective 24 Hr Interval Summary Gastrointestinal: no complaints Genitourinary: no complaints Musculoskeletal: no complaints Exam/Review of Systems Vital Signs Vitals Vital Signs Date Time Temp Pulse Resp B/P Pulse Ox O2 Delivery O2 Flow Rate FiO2 10/20/16 16:09 62 10/20/16 15:39 98.5 16 130/63 99 10/20/16 08:21 2.0 10/20/16 04:09 Room Air Intake and Output 10/19/16 10/19/16 10/20/16 15:00 23:00 07:00 Intake Total 300 ml 480 ml 300 ml Output Total 4300 ml Balance -4000 ml 480 ml 300 ml Exam Respiratory: clear to auscultation Cardiovascular: regular rate and rhythm Gastrointestinal: soft Musculoskeletal: nl extremities to inspection Extremities: normal pulses Results Result Diagram: 10/19/16 0535 10/20/16 0715 Results 24 hrs Laboratory Tests Test 10/19/16 20:48 10/20/16 07:15 10/20/16 08:30 10/20/16 11:51 Bedside Glucose 135 99 148 Sodium Level 134 L Potassium Level 4.6 Chloride Level 92 L Carbon Dioxide Level 28 Anion Gap 19 H Blood Urea Nitrogen 28 H Creatinine 4.10 H Glucose Level 93 Calcium Level 8.9 Test 10/20/16 17:14 Bedside Glucose 106 Medications Medications Current Medications Hydralazine HCl (Apresoline) 10 mg Q6H PRN IV ELEVATED SYSTOLIC BP Last administered on 10/20/16 04:17; Admin Dose 10 MG; Start 10/18/16 at 08:00 Amlodipine Besylate (Norvasc) 10 mg DAILY PO Last administered on 10/20/16 08: 34; Admin Dose 10 MG; Start 10/18/16 at 14:00 Latanoprost (Xalatan) 1 drop HS LEFT EYE Last administered on 10/19/16 20:53; Admin Dose 1 DROP; Start 10/18/16 at 21:00 Clonidine (Catapres) 0.1 mg TID PO Last administered on 10/20/16 13:15; Admin Dose 0.1 MG; Start 10/18/16 at 21:00 Docusate Sodium (Colace) 100 mg DAILY PRN PO CONSTIPATION; Start 10/18/16 at 14 :00 Ferrous Sulfate (Ferrous Sulfate (Ec)) 325 mg DAILY PO Last administered on 08:34; Admin Dose 325 MG; Start 10/18/16 at 14:00 Folic Acid (Folic Acid) 1 mg DAILY PO Last administered on 10/20/16 08:35; Admin Dose 1 MG; Start 10/18/16 at 14:00 Gabapentin (Neurontin) 100 mg TID PO Last administered on 10/20/16 13:14; Admin Dose 100 MG; Start 10/18/16 at 21:00 Hydralazine HCl (Apresoline) 50 mg TID PO Last administered on 10/20/16 13:14 ; Admin Dose 50 MG; Start 10/18/16 at 21:00 Losartan Potassium (Cozaar) 50 mg DAILY PO Last administered on 10/20/16 08:34 ; Admin Dose 50 MG; Start 10/18/16 at 14:00 Lubiprostone (Amitiza) 24 mcg BID PO Last administered on 10/20/16 08:34; Admin Dose 24 MCG; Start 10/18/16 at 14:30 Polyethylene Glycol (Miralax) 17 gm DAILY PO Last administered on 10/20/16 08: 33; Admin Dose 17 GM; Start 10/18/16 at 14:00 Tramadol HCl (Ultram) 50 mg BID PRN PO PAIN Last administered on 10/18/16 14: 28; Admin Dose 50 MG; Start 10/18/16 at 14:00 Pantoprazole (Protonix Tab) 40 mg DAILY@06 PO Last administered on 10/20/16 05 :35; Admin Dose 40 MG; Start 10/19/16 at 06:00 Aspirin (Aspirin) 81 mg DAILY PO Last administered on 10/20/16 08:34; Admin Dose 81 MG; Start 10/18/16 at 14:00 Acetaminophen (Tylenol Tab) 650 mg Q4H PRN PO PAIN AND OR ELEVATED TEMP Last administered on 10/18/16 21:13; Admin Dose 650 MG; Start 10/18/16 at 14:00 Ondansetron HCl (Zofran Inj) 4 mg Q6H PRN IV NAUSEA AND/OR VOMITING Last administered on 10/19/16 00:54; Admin Dose 4 MG; Start 10/18/16 at 14:00 Diagnostic Test (Pha) (Accu-Chek) 1 ea 02 XX ; Start 10/19/16 at 02:00 Miscellaneous Information 1 ea NOTE XX ; Start 10/18/16 at 17:30 Glucose (Glutose) 15 gm Q15M PRN PO DECREASED GLUCOSE; Start 10/18/16 at 17:30 Glucose (Glutose) 22.5 gm Q15M PRN PO DECREASED GLUCOSE; Start 10/18/16 at 17: 30 Dextrose (D50w Syringe) 25 ml Q15M PRN IV DECREASED GLUCOSE; Start 10/18/16 at 17:30 Dextrose (D50w Syringe) 50 ml Q15M PRN IV DECREASED GLUCOSE; Start 10/18/16 at 17:30 Glucagon (Glucagen) 1 mg Q15M PRN IM DECREASED GLUCOSE; Start 10/18/16 at 17:30 Glucose (Glutose) 15 gm Q15M PRN BUCCAL DECREASED GLUCOSE; Start 10/18/16 at 17 :30 Metoclopramide HCl (Reglan) 10 mg Q6H PRN IV NAUSEA Last administered on 17:51; Admin Dose 10 MG; Start 10/18/16 at 21:00 Nitroglycerin (Nitroglycerin (Sl Tab) 0.4 Mg) 1 tab Q5M PRN SL ANGINA; Start at 21:00 MICHELLE MCDANIEL MD Oct 20, 2016 18:40
[2016-10-20] MEDS ORDERED: BISACODYL (EC) 5 MG TAB PO PRN (19:00)
[2016-10-20] MEDS: DOCUSATE SODIUM 100 MG CAP PO SCH (21:27)
[2016-10-20] MEDS: LATANOPROST 0.005% 2.5 ML OPH LEFT EYE SCH (21:28)
[2016-10-20] MEDS: METOCLOPRAMIDE 10 MG INJ IV PRN (21:32)
[2016-10-21] VITALS (18 sets, daily range): BP systolic 102–158; BP diastolic 49–70; PULSE 60–83; RESP 15–17
[2016-10-21] MEDS: ACCU-CHEK XX SCH (02:00)
[2016-10-21] MEDS: PANTOPRAZOLE (EC) 40 MG TAB PO SCH (06:17)
[2016-10-21] MEDS: INSULIN ASPART [NOVOLOG] 3 ML PEN SC SCH ×3 (08:48→17:56)
[2016-10-21] MEDS: AMLODIPINE 10 MG TAB PO SCH (09:00)
[2016-10-21] MEDS: LOSARTAN 50 MG TAB PO SCH (09:00)
[2016-10-21] MEDS: LUBIPROSTONE 24 MCG CAP PO SCH (09:14)
[2016-10-21] MEDS: FERROUS SULFATE (EC) 325 MG TAB PO SCH (09:14)
[2016-10-21] MEDS: FOLIC ACID 1 MG TAB PO SCH (09:14)
[2016-10-21] MEDS: ASPIRIN 81 MG TAB PO SCH (09:14)
[2016-10-21] MEDS: POLYETHYLENE GLYCOL 17 GM PACKET PO SCH (09:14)
[2016-10-21] MEDS: GABAPENTIN 100 MG CAP PO SCH ×2 (09:14→14:05)
[2016-10-21] MEDS: SEVELAMER CARBONATE 0.8 GM PKT PO SCH ×3 (09:14→17:52)
[2016-10-21] MEDS: DOCUSATE SODIUM 100 MG CAP PO SCH ×2 (09:14→14:04)
--- NOTE | 2016-10-21 13:07 | CONS ---
Date/Time of Note Date/Time of Note DATE: 10/21/16 TIME: 13:01 Assessment/Plan Assessment/Plan Chief Complaint/Hosp Course IMP: 1.Chest pain-negative stress test this year 05/2016 with preserved EF and currently resolved chest pain-megatinve trop>3 2.HTN 3.ESRD 4.DM Recc: -Tele -Continue clonidine/norvasc/losartan -Continue asa -Low dose oral nitrates and f/u for recurrent chest pain -HD for volume removal Problems: Consultation Date/Type/Reason Admit Date/Time Oct 19, 2016 at 09:45 Initial Consult Date 10/19/2016 Type of Consultation: cardiology Reason for Consultation chest pain Referring Provider: MICHELLE MCDANIEL Exam/Review of Systems Vital Signs Vitals Vital Signs Date Time Temp Pulse Resp B/P Pulse Ox O2 Delivery O2 Flow Rate FiO2 10/21/16 12:09 62 10/21/16 09:50 20 10/21/16 08:00 Nasal Cannula 2.0 10/21/16 07:18 97.6 151/70 99 Intake and Output 10/20/16 10/20/16 10/21/16 15:00 23:00 07:00 Intake Total 800 ml Balance 800 ml Exam Review of Systems: CONSTITUTIONAL: No fevers, chills. PULMONARY: No sob CARDIOVASCULAR: No chest pain/palpitations GASTROINTESTINAL: No nausea/vomiting. GENITOURINARY: No hematuria/dysuria. MUSCULOSKELETAL: No myagias/arthalgias. PSYCHIATRIC: The patient denies depression. NEUROLOGIC: No weakness Constitutional: alert Psych: no complaints Head: normocephalic ENMT: mucosa pink and moist Neck: jvd (9 cm water), supple Respiratory: diminished breath sounds (at bases/B) Cardiovascular: regular rate and rhythm Gastrointestinal: non-tender, soft Musculoskeletal: muscle tone (normal) Extremities: edema (none) Neurological: other (No focal deficits) Results Result Diagram: 10/19/16 0535 10/20/16 0715 Results 24 hrs Laboratory Tests Test 10/20/16 17:14 10/20/16 21:26 10/21/16 07:56 10/21/16 12:10 Bedside Glucose 106 137 145 154 Medications Medications Current Medications Hydralazine HCl (Apresoline) 10 mg Q6H PRN IV ELEVATED SYSTOLIC BP Last administered on 10/20/16t 04:17; Admin Dose 10 MG; Start 10/18/16 at 08:00 Amlodipine Besylate (Norvasc) 10 mg DAILY PO Last administered on 10/20/16 08: 34; Admin Dose 10 MG; Start 10/18/16 at 14:00 Latanoprost (Xalatan) 1 drop HS LEFT EYE Last administered on 10/20/16 21:28; Admin Dose 1 DROP; Start 10/18/16 at 21:00 Clonidine (Catapres) 0.1 mg TID PO Last administered on 10/20/16 21:29; Admin Dose 0.1 MG; Start 10/18/16 at 21:00 Docusate Sodium (Colace) 100 mg DAILY PRN PO CONSTIPATION; Start 10/18/16 at 14 :00 Ferrous Sulfate (Ferrous Sulfate (Ec)) 325 mg DAILY PO Last administered on 09:14; Admin Dose 325 MG; Start 10/18/16 at 14:00 Folic Acid (Folic Acid) 1 mg DAILY PO Last administered on 10/21/16 09:14; Admin Dose 1 MG; Start 10/18/16 at 14:00 Gabapentin (Neurontin) 100 mg TID PO Last administered on 10/21/16 09:14; Admin Dose 100 MG; Start 10/18/16 at 21:00 Hydralazine HCl (Apresoline) 50 mg TID PO Last administered on 10/20/16 21:28 ; Admin Dose 50 MG; Start 10/18/16 at 21:00 Losartan Potassium (Cozaar) 50 mg DAILY PO Last administered on 10/20/16 08:34 ; Admin Dose 50 MG; Start 10/18/16 at 14:00 Lubiprostone (Amitiza) 24 mcg BID PO Last administered on 10/21/16 09:14; Admin Dose 24 MCG; Start 10/18/16 at 14:30 Polyethylene Glycol (Miralax) 17 gm DAILY PO Last administered on 10/21/16 09: 14; Admin Dose 17 GM; Start 10/18/16 at 14:00 Tramadol HCl (Ultram) 50 mg BID PRN PO PAIN Last administered on 10/18/16 14: 28; Admin Dose 50 MG; Start 10/18/16 at 14:00 Pantoprazole (Protonix Tab) 40 mg DAILY@06 PO Last administered on 10/21/16 06 :17; Admin Dose 40 MG; Start 10/19/16 at 06:00 Aspirin (Aspirin) 81 mg DAILY PO Last administered on 10/21/16 09:14; Admin Dose 81 MG; Start 10/18/16 at 14:00 Acetaminophen (Tylenol Tab) 650 mg Q4H PRN PO PAIN AND OR ELEVATED TEMP Last administered on 10/18/16 21:13; Admin Dose 650 MG; Start 10/18/16 at 14:00 Ondansetron HCl (Zofran Inj) 4 mg Q6H PRN IV NAUSEA AND/OR VOMITING Last administered on 10/19/16 00:54; Admin Dose 4 MG; Start 10/18/16 at 14:00 Diagnostic Test (Pha) (Accu-Chek) 1 ea 02 XX ; Start 10/19/16 at 02:00 Miscellaneous Information 1 ea NOTE XX ; Start 10/18/16 at 17:30 Glucose (Glutose) 15 gm Q15M PRN PO DECREASED GLUCOSE; Start 10/18/16 at 17:30 Glucose (Glutose) 22.5 gm Q15M PRN PO DECREASED GLUCOSE; Start 10/18/16 at 17: 30 Dextrose (D50w Syringe) 25 ml Q15M PRN IV DECREASED GLUCOSE; Start 10/18/16 at 17:30 Dextrose (D50w Syringe) 50 ml Q15M PRN IV DECREASED GLUCOSE; Start 10/18/16 at 17:30 Glucagon (Glucagen) 1 mg Q15M PRN IM DECREASED GLUCOSE; Start 10/18/16 at 17:30 Glucose (Glutose) 15 gm Q15M PRN BUCCAL DECREASED GLUCOSE; Start 10/18/16 at 17 :30 Metoclopramide HCl (Reglan) 10 mg Q6H PRN IV NAUSEA Last administered on 21:32; Admin Dose 10 MG; Start 10/18/16 at 21:00 Nitroglycerin (Nitroglycerin (Sl Tab) 0.4 Mg) 1 tab Q5M PRN SL ANGINA; Start at 21:00 Docusate Sodium (Colace) 100 mg TID PO Last administered on 10/21/16 09:14; Admin Dose 100 MG; Start 10/20/16 at 21:00 Bisacodyl (Dulcolax) 10 mg DAILY PRN PO CONSTIPATION; Start 10/20/16 at 19:00 ANNAMARIE SANTANA Oct 21, 2016 13:07
--- NOTE | 2016-10-21 17:42 | PDOCDIS ---
Discharge Instructions CONDITION Patient Condition: Stable HOME CARE INSTRUCTIONS: Special Diet: diabetic, renal diet. ACTIVITY: Activity Restrictions: Slowly Increase Activity FOLLOW UP/APPOINTMENTS Follow-up Plan f/u pcp 1 wk MICHELLE MCDANIEL MD Oct 21, 2016 17:42
[2016-10-21] MEDS ORDERED: ASPI81TA3 PO (17:45)
[2016-10-21] MEDS ORDERED: NIT4 SL (17:45)
[2016-10-21] MEDS ORDERED: BISA5TAB6 PO (17:45)
[2016-10-21] MEDS ORDERED: ISOS10TA2 PO (17:45)
[2016-10-21] MEDS ORDERED: LUBI24CA7 PO (17:45)
--- NOTE | 2016-10-21 18:37 | PN ---
Date/Time of Note Date/Time of Note DATE: 10/21/16 TIME: 18:36 Assessment/Plan VTE Prophylaxis VTE Prophylaxis Intervention: other Lines/Catheters IV Catheter Type (from [facility]): Saline Lock Urinary Cath still in place: No Assessment/Plan Chief Complaint/Hosp Course ESRD HTN HYPERKALEMIA BETTER BETTER CONSTIPATION PLAN HD BOWEL GROUP HOME Problems: Subjective 24 Hr Interval Summary Eyes: no complaints Gastrointestinal: no complaints Genitourinary: no complaints Exam/Review of Systems Vital Signs Vitals Vital Signs Date Time Temp Pulse Resp B/P Pulse Ox O2 Delivery O2 Flow Rate FiO2 10/21/16 16:48 2.0 10/21/16 16:17 74 10/21/16 15:29 98.4 15 158/70 91 10/21/16 08:00 Nasal Cannula Intake and Output 10/20/16 10/20/16 10/21/16 15:00 23:00 07:00 Intake Total 800 ml Balance 800 ml Exam Neck: supple Respiratory: clear to auscultation Cardiovascular: regular rate and rhythm Results Result Diagram: 10/19/16 0535 10/20/16 0715 Results 24 hrs Laboratory Tests Test 10/20/16 21:26 10/21/16 07:56 10/21/16 12:10 10/21/16 17:40 Bedside Glucose 137 145 154 245 H Medications Medications Current Medications Hydralazine HCl (Apresoline) 10 mg Q6H PRN IV ELEVATED SYSTOLIC BP Last administered on 10/20/16 04:17; Admin Dose 10 MG; Start 10/18/16 at 08:00 Amlodipine Besylate (Norvasc) 10 mg DAILY PO Last administered on 10/20/16 08: 34; Admin Dose 10 MG; Start 10/18/16 at 14:00 Latanoprost (Xalatan) 1 drop HS LEFT EYE Last administered on 10/20/16 21:28; Admin Dose 1 DROP; Start 10/18/16 at 21:00 Clonidine (Catapres) 0.1 mg TID PO Last administered on 10/21/16 14:05; Admin Dose 0.1 MG; Start 10/18/16 at 21:00 Docusate Sodium (Colace) 100 mg DAILY PRN PO CONSTIPATION; Start 10/18/16 at 14 :00 Ferrous Sulfate (Ferrous Sulfate (Ec)) 325 mg DAILY PO Last administered on 09:14; Admin Dose 325 MG; Start 10/18/16 at 14:00 Folic Acid (Folic Acid) 1 mg DAILY PO Last administered on 10/21/16 09:14; Admin Dose 1 MG; Start 10/18/16 at 14:00 Gabapentin (Neurontin) 100 mg TID PO Last administered on 10/21/16 14:05; Admin Dose 100 MG; Start 10/18/16 at 21:00 Hydralazine HCl (Apresoline) 50 mg TID PO Last administered on 10/21/16 14:05 ; Admin Dose 50 MG; Start 10/18/16 at 21:00 Losartan Potassium (Cozaar) 50 mg DAILY PO Last administered on 10/20/16 08:34 ; Admin Dose 50 MG; Start 10/18/16 at 14:00 Lubiprostone (Amitiza) 24 mcg BID PO Last administered on 10/21/16 09:14; Admin Dose 24 MCG; Start 10/18/16 at 14:30 Polyethylene Glycol (Miralax) 17 gm DAILY PO Last administered on 10/21/16 09: 14; Admin Dose 17 GM; Start 10/18/16 at 14:00 Tramadol HCl (Ultram) 50 mg BID PRN PO PAIN Last administered on 10/18/16 14: 28; Admin Dose 50 MG; Start 10/18/16 at 14:00 Pantoprazole (Protonix Tab) 40 mg DAILY@06 PO Last administered on 10/21/16 06 :17; Admin Dose 40 MG; Start 10/19/16 at 06:00 Aspirin (Aspirin) 81 mg DAILY PO Last administered on 10/21/16 09:14; Admin Dose 81 MG; Start 10/18/16 at 14:00 Acetaminophen (Tylenol Tab) 650 mg Q4H PRN PO PAIN AND OR ELEVATED TEMP Last administered on 10/18/16 21:13; Admin Dose 650 MG; Start 10/18/16 at 14:00 Ondansetron HCl (Zofran Inj) 4 mg Q6H PRN IV NAUSEA AND/OR VOMITING Last administered on 10/19/16 00:54; Admin Dose 4 MG; Start 10/18/16 at 14:00 Diagnostic Test (Pha) (Accu-Chek) 1 ea 02 XX ; Start 10/19/16 at 02:00 Miscellaneous Information 1 ea NOTE XX ; Start 10/18/16 at 17:30 Glucose (Glutose) 15 gm Q15M PRN PO DECREASED GLUCOSE; Start 10/18/16 at 17:30 Glucose (Glutose) 22.5 gm Q15M PRN PO DECREASED GLUCOSE; Start 10/18/16 at 17: 30 Dextrose (D50w Syringe) 25 ml Q15M PRN IV DECREASED GLUCOSE; Start 10/18/16 at 17:30 Dextrose (D50w Syringe) 50 ml Q15M PRN IV DECREASED GLUCOSE; Start 10/18/16 at 17:30 Glucagon (Glucagen) 1 mg Q15M PRN IM DECREASED GLUCOSE; Start 10/18/16 at 17:30 Glucose (Glutose) 15 gm Q15M PRN BUCCAL DECREASED GLUCOSE; Start 10/18/16 at 17 :30 Metoclopramide HCl (Reglan) 10 mg Q6H PRN IV NAUSEA Last administered on 21:32; Admin Dose 10 MG; Start 10/18/16 at 21:00 Nitroglycerin (Nitroglycerin (Sl Tab) 0.4 Mg) 1 tab Q5M PRN SL ANGINA; Start at 21:00 Docusate Sodium (Colace) 100 mg TID PO Last administered on 10/21/16 14:04; Admin Dose 100 MG; Start 10/20/16 at 21:00 Bisacodyl (Dulcolax) 10 mg DAILY PRN PO CONSTIPATION; Start 10/20/16 at 19:00 Isosorbide Dinitrate (Isordil) 10 mg TID PO ; Start 10/21/16 at 21:00 MICHELLE MCDANIEL MD Oct 21, 2016 18:37
[2016-10-21] MEDS ORDERED: ISOSORBIDE DINITRATE 10 MG TAB PO SCH (21:00)
== END 2016-10-21 19:45 | disposition home or self-care (01) | DRG 313 ==
LOC: E/R 21:52 → TEL 10-18 05:13 → OBSVTOIN 10-19 09:45
PROVIDERS: ADMIT Internal Medicine Nephrology; ATTEND Internal Medicine Nephrology
DX: R07.9 Chest pain, unspecified (principal); I12.0 Hypertensive chronic kidney disease with stage 5 chronic kidney disease or end stage renal disease; I42.9 Cardiomyopathy, unspecified; N18.6 End stage renal disease; E11.42 Type 2 diabetes mellitus with diabetic polyneuropathy; E87.1 Hypo-osmolality and hyponatremia; I16.9 Hypertensive crisis, unspecified; E78.5 Hyperlipidemia, unspecified; Z99.2 Dependence on renal dialysis; M81.0 Age-related osteoporosis without current pathological fracture; E11.65 Type 2 diabetes mellitus with hyperglycemia; E87.5 Hyperkalemia; K59.00 Constipation, unspecified; Z86.73 Personal history of transient ischemic attack (TIA), and cerebral infarction without residual deficits
CPT/HCPCS: 36415; 71010; 71275; 80048; 82550; 82553; 82962; 84484; 85025; 85610; 85730; 90935; 93005; 93306; 96374; 96375; 96376; 99217; G0378; J0360; J1815; J2270; J2405; J2765; J7040; Q9967

== ENCOUNTER 2016-10-29 20:33 | Emergency (ER) | payer MEDICARE, BC ==
[~2016-10-29] VITALS: Ht 152.4 cm; Wt 59.0 kg
[~2016-10-29 20:33] MED LIST changes: +ASPI81TA3 PO; +BISA5TAB6 PO; +ISOS10TA2 PO; -METO10TA92 PO; +NIT4 SL
[2016-10-29 20:42] VITALS: Ht 152.4 cm; Wt 59.0 kg
--- NOTE | 2016-10-29 21:06 | ERD ---
ER Documentation Chief Complaint Date/Time DATE: 10/29/16 TIME: 21:06 Chief Complaint STEWARD/dizziness x 10 mins, upon finnishsing dialysis HPI 71-year-old female with a history of diabetes, hypertension, dyslipidemia, poorly controlled hypertension and end-stage renal failure on dialysis M/W/F presents to the ED via ambulance complaining of hypertension, headache and dizziness after dialysis today. No chest pain or shortness of breath. Nausea but no abdominal pain or vomiting. Denies visual changes, focal weakness or numbness. No leg pain or swelling. No URI symptoms or cough. No fevers or chills. Recently has had multiple episodes of hypertension and headaches after dialysis. ROS All systems reviewed and are negative except as per history of present illness. Medications Home Meds Active Scripts Bisacodyl* (Bisacodyl*) 5 Mg Tablet.dr, 10 MG PO DAILY Y for CONSTIPATION for 28 Days Prov:MICHELLE MCDANIEL MD 10/21/16 Aspirin (Aspirin) 81 Mg Chew, 81 MG PO DAILY for 28 Days, TAB Prov:MICHELLE MCDANIEL MD 10/21/16 Nitroglycerin* (Nitrostat*) 0.4 Mg Tab.subl, 1 TAB SL Q5M Y for ANGINA for 14 Days Prov:MICHELLE MCDANIEL MD 10/21/16 Isosorbide Dinitrate* (Isordil*) 10 Mg Tablet, 10 MG PO TID for 14 Days, TAB Prov:MICHELLE MCDANIEL MD 10/21/16 Lubiprostone* (Amitiza*) 24 Mcg Capsule, 24 MCG PO BID for 30 Days, CAP Prov:MICHELLE MCDANIEL MD 10/21/16 Polyethylene Glycol* (Miralax*) 17 Gm Powd.pack, 17 GM PO DAILY for 28 Days Prov:MICHELLE MCDANIEL MD 06/29/16 Clonidine Hcl* (Clonidine Hcl*) 0.1 Mg Tab, 0.1 MG PO TID for 28 Days, TAB Prov:MICHELLE MCDANIEL MD 06/22/15 Hydralazine Hcl* (Hydralazine Hcl*) 50 Mg Tab, 50 MG PO TID, #180 TAB Prov:OLGA LIDIA FENTON MD 06/20/14 Reported Medications Insulin Glargine* (Lantus*) 100 Unit/Ml Soln, 3 UNIT SC AC MEALS, #1 VIAL 10/17/16 Ferrous Sulfate* (Ferrous Sulfate*) 325 Mg Tabec, 325 MG PO DAILY, TAB 06/25/16 Folic Acid* (Folic Acid*) 1 Mg Tablet, 1 MG PO DAILY, TAB 06/25/16 Tramadol Hcl* (Ultram*) 50 Mg Tablet, 50 MG PO BID Y for PAIN, TAB 06/25/16 Sevelamer Carbonate* (Renvela*) 800 Mg Tablet, 0.8 GM PO WITH MEALS, TAB 09/15/15 Bimatoprost* (Lumigan*) 0.01%-2.5 Ml Opht Drops, 1 DROP BOTH EYES HS, EA 09/15/15 Docusate Sodium* (Dok*) 100 Mg Tablet, 100 MG PO DAILY Y for CONSTIPATION, #30 CAP 08/29/15 Losartan Potassium* (Losartan Potassium*) 50 Mg Tablet, 50 MG PO DAILY 08/15/15 Omeprazole* (Omeprazole*) 20 Mg Capsule.dr, 20 MG PO DAILY, #30 CAP 06/05/15 Amlodipine Besylate* (Amlodipine Besylate*) 10 Mg Tablet, 10 MG PO DAILY, #30 TAB 06/05/15 Gabapentin* (Gabapentin*) 100 Mg Capsule, 100 MG PO TID 08/08/13 Allergies Allergies: Coded Allergies: No Known Drug Allergies (Verified Allergy, Unknown, 06/25/16) PMhx/Soc Reviewed in chart. As per HPI. History of Surgery: Yes (right arm fistula) Anesthesia Reaction: No Hx Neurological Disorder: No Hx Respiratory Disorders: No Hx Cardiac Disorders: No Hx Psychiatric Problems: No Hx Alcohol Use: No Hx Substance Use: No Hx Tobacco Use: No FmHx No family history of coronary artery disease or sudden cardiac . Reviewed in chart. Physical Exam Vitals Vital Signs Date Time Temp Pulse Resp B/P Pulse Ox O2 Delivery O2 Flow Rate FiO2 10/29/16 20:42 98.3 89 18 243/104 99 Physical Exam Const: [] Head: Atraumatic Eyes: Normal Conjunctiva ENT: Normal External Ears, Nose and Mouth. Neck: Full range of motion..~ No meningismus. Resp: Clear to auscultation bilaterally Cardio: Regular rate and rhythm, no murmurs Abd: Soft, non tender, non distended. Normal bowel sounds Skin: No petechiae or rashes Back: No midline or flank tenderness Ext: No cyanosis, or edema Neur: Awake and alert Psych: Normal Mood and Affect Result Diagram: 10/29/16214010/29/162140 Results 24 hrs Laboratory Tests Test 10/29/16 21:41 White Blood Count 4.310^3/ul Red Blood Count 3.5810^6/ul Hemoglobin 10.2g/dl Hematocrit 30.7% Mean Corpuscular Volume 85.8fl Mean Corpuscular Hemoglobin 28.5pg Mean Corpuscular Hemoglobin Concent 33.2g/dl Red Cell Distribution Width 17.0% Platelet Count 45516^3/UL Mean Platelet Volume 10.3fl Neutrophils % 73.5% Lymphocytes % 12.0% Monocytes % 10.6% Eosinophils % 2.5% Basophils % 0.9% Nucleated Red Blood Cells % 0.0/100WBC Neutrophils # 3.210^3/ul Lymphocytes # 0.510^3/ul Monocytes # 0.510^3/ul Eosinophils # 0.110^3/ul Basophils # 0.010^3/ul Nucleated Red Blood Cells # 0.010^3/ul Sodium Level 131mmol/L Potassium Level 3.7mmol/L Chloride Level 86mmol/L Carbon Dioxide Level 32mmol/L Anion Gap 17 Blood Urea Nitrogen 13mg/dl Creatinine 2.23mg/dl Glucose Level 131mg/dl Calcium Level 9.0mg/dl Current Medications Medications (Trade) Dose Ordered Sig/Leanne Route PRN Reason Start Time Stop Time Status Last Admin Dose Admin Hydralazine HCl (Apresoline) 20 mg ONCE ONCE IV 10/29/16 21:30 10/29/16 21:30 DC Morphine Sulfate (morphine) 2 mg ONCE ONCE IV 10/29/16 21:30 10/29/16 21:31 DC 10/29/16 21:55 Ondansetron HCl (Zofran Inj) 4 mg STK-MED ONCE .ROUTE 10/29/16 21:36 10/29/16 21:37 DC Hydralazine HCl (Apresoline) 10 mg ONCE ONCE IV 10/29/16 23:00 10/29/16 23:01 EKG: TIME: 21:46. Sinus rhythm. Ventricular rate 81. Left axis deviation. Incomplete right bundle branch block. No acute ST segment elevation or depression. No ectopy. EP Interpretation: Abnormal EKG. IMAGING: PROCEDURE: CT Brain without contrast. CLINICAL INDICATION: Headache TECHNIQUE: A CT of the brain was performed on a multidetector CT scanner utilizing axial imaging from the skull base through the vertex without IV contrast. Multiplanar reformatted images were made. Images were reviewed on a PACS workstation. The CTDIvol is 43 mGy and the DLP is a 839 mGycm. COMPARISON: Head CT May 29, 2016 FINDINGS: There is no intracranial hemorrhage, mass effect, or midline shift. No extra- axial fluid collection is seen. There is mild to moderate diffuse cerebral volume loss with sulcal and ventricular dilatation. Ventricles are of normal configuration.. The density of the brain is normal, and the [place] white matter differentiation appears well-preserved. The visualized paranasal sinuses and osseous structures are grossly unremarkable. IMPRESSION: 1. No evidence of acute intracranial pathology. 2. Atrophy . .Helio Carrillo MD, MD Date Time Electronically viewed and signed by .Helio Carrillo MD, MD on 10/29/2016 22: 12 .A/ Procedures/MDM DOCUMENTS REVIEWED: ED nurse, prior ED, prior records including an admission for uncontrolled hypertension, chest pain or shortness of breath after dialysis. REEXAMINATION/REEVALUATION: Time: Significantly improved. Headache resolved but still concerned about Blood pressure 194/68. Hydralazine 10 mg IV given MEDICAL DECISION MAKIN-year-old female with a history of diabetes, hypertension, dyslipidemia, poorly controlled hypertension and end-stage renal failure on dialysis M/W/F presents to the ED via ambulance complaining of hypertension, headache and dizziness after dialysis today. Symptoms improved significantly and blood pressure decreased with morphine 2 mg. Ongoing hypertension treated with hydralazine 10 mg. No acute electrolyte abnormalities. CT of the brain is negative for hemorrhage or infarct. Dialysis disequilibrium syndrome considered. No chest pain or ischemic EKG changes. No element of anxiety is also likely an exacerbating factor. Stable for discharge with precautionary instructions and urgent outpatient follow-up as counseled for adjustment of her antihypertensives. Counseled patient and family regarding diagnostic workup, diagnosis and need for followup. Understands to return to ED if symptoms recur, worsen or any other concerns. Departure Diagnosis: Primary Impression: Headache Headache type: unspecified Headache chronicity pattern: episodic headache Intractability: not intractable Qualified Code: R51 - Nonintractable episodic headache, unspecified headache type Additional Impressions: Uncontrolled hypertension End stage renal disease on dialysis Diabetes mellitus type 2 in nonobese Condition: Stable (Improved) ЮЛИЯ SCHAEFER MD Oct 29, 2016 21:06
[2016-10-29] MEDS ORDERED: morphine 2 MG INJ IV ONE (21:30)
[2016-10-29] MEDS ORDERED: hydrALAzine 20 MG INJ IV ONE ×2 (21:30→23:00)
[2016-10-29] MEDS ORDERED: ONDANSETRON 4 MG INJ ONE (21:36)
[2016-10-29 21:53] LABS: ADD SCAN DIFF NO
[2016-10-29 22:01] LABS: ABNORMAL IP MESSAGE 1; BASOPHILS % 0.9 % (0.0-2.0); EOSINOPHILS # 0.1 10^3/ul (0.0-0.5); EOSINOPHILS % 2.5 % (0.0-7.0); HEMATOCRIT 30.7 % (37.0-47.0); HEMOGLOBIN 10.2 g/dl (12.0-16.0); LYMPHOCYTES # 0.5 10^3/ul (0.8-2.9); MEAN CORPUSCULAR HEMOGLOBIN 28.5 pg (29.0-33.0); MEAN CORPUSCULAR HGB CONC 33.2 g/dl (32.0-37.0); MEAN CORPUSCULAR VOLUME 85.8 fl (82.0-101.0); MEAN PLATELET VOLUME 10.3 fl (7.4-10.4); MONOCYTE # 0.5 10^3/ul (0.3-0.9); MONOCYTES % 10.6 % (0.0-11.0); NEUTROPHIL # 3.2 10^3/ul (1.6-7.5); NEUTROPHILS % 73.5 % (39.0-77.0); PLATELET COUNT 314 10^3/UL (140-415); RED BLOOD COUNT 3.58 10^6/ul (4.20-5.40); WHITE BLOOD COUNT 4.3 10^3/ul (4.8-10.8)
--- NOTE | 2016-10-29 22:12 | RADRPT ---
PROCEDURE: CT Brain without contrast. CLINICAL INDICATION: Headache TECHNIQUE: A CT of the brain was performed on a multidetector CT scanner utilizing axial imaging f rom the skull base through the vertex without IV contrast. Multiplanar reformatted images were made . Images were reviewed on a PACS workstation. The CTDIvol is 43 mGy and the DLP is a 839 mGycm. COMPARISON: Head CT May 29, 2016 FINDINGS: There is no intracranial hemorrhage, mass effect, or midline shift. No extra-axial fluid collection is seen. There is mild to moderate diffuse cerebral volume loss with sulcal and ventricular dilatat ion. Ventricles are of normal configuration.. The density of the brain is normal, and the [place] whit e matter differentiation appears well-preserved. The visualized paranasal sinuses and osseous struc tures are grossly unremarkable. IMPRESSION: 1. No evidence of acute intracranial pathology. 2. Atrophy . .Helio Carrillo MD, MD Date Time Electronically viewed and signed by .Helio Carrillo MD, on 10/29/2016 22:12 .A/
[2016-10-29 22:13] LABS: CREATININE 2.23 mg/dl (0.44-1.00); POTASSIUM 3.7 mmol/L (3.5-5.1)
[2016-10-29 23:27] VITALS: BP 175/57; PULSE 87; RESP 20
[2016-10-30] MEDS ORDERED: POLY17PO6 PO (23:05)
[2016-10-30] MEDS ORDERED: BISA-57 PO (23:08)
== END 2016-10-29 23:43 | disposition home or self-care (01) ==
LOC: E/R 20:33
DX: R51 Headache (principal); I12.0 Hypertensive chronic kidney disease with stage 5 chronic kidney disease or end stage renal disease; N18.6 End stage renal disease; E11.22 Type 2 diabetes mellitus with diabetic chronic kidney disease; Z79.4 Long term (current) use of insulin; Z79.82 Long term (current) use of aspirin; Z99.2 Dependence on renal dialysis
CPT/HCPCS: 36415; 70450; 80048; 85025; 93005; 96374; 96375; 99285; J0360; J2270; J2405

== ENCOUNTER 2016-10-30 18:20 | Emergency (ER) | payer MEDICARE, BC ==
[~2016-10-30] VITALS: Ht 154.9 cm; Wt 63.6 kg
[2016-10-30 18:36] VITALS: Ht 154.9 cm; Wt 63.6 kg
[2016-10-30] MEDS ORDERED: ONDANSETRON 4 MG INJ IV STA ×2 (21:16→22:44)
[2016-10-30] MEDS ORDERED: FAMOTIDINE 20 MG INJ IV STA (21:16)
[2016-10-30] MEDS ORDERED: SOD CHLORIDE 0.9% 500 ML IV STA (21:16)
[2016-10-30 21:25] LABS: ADD SCAN DIFF NO
[2016-10-30 21:26] LABS: BASOPHILS % 0.6 % (0.0-2.0); EOSINOPHILS # 0.1 10^3/ul (0.0-0.5); EOSINOPHILS % 1.4 % (0.0-7.0); HEMATOCRIT 31.9 % (37.0-47.0); HEMOGLOBIN 10.9 g/dl (12.0-16.0); LYMPHOCYTES # 0.7 10^3/ul (0.8-2.9); LYMPHOCYTES % 12.8 % (15.0-51.0); MEAN CORPUSCULAR HEMOGLOBIN 29.2 pg (29.0-33.0); MEAN CORPUSCULAR HGB CONC 34.2 g/dl (32.0-37.0); MEAN CORPUSCULAR VOLUME 85.5 fl (82.0-101.0); MEAN PLATELET VOLUME 9.3 fl (7.4-10.4); MONOCYTE # 0.6 10^3/ul (0.3-0.9); NEUTROPHIL # 3.8 10^3/ul (1.6-7.5); NEUTROPHILS % 73.8 % (39.0-77.0); PLATELET COUNT 334 10^3/UL (140-415); RED BLOOD COUNT 3.73 10^6/ul (4.20-5.40); RED CELL DISTRIBUTION WIDTH 16.7 % (11.5-14.5); WHITE BLOOD COUNT 5.1 10^3/ul (4.8-10.8)
[2016-10-30 21:46] LABS: ALBUMIN 5.1 g/dl (3.3-4.9); ALBUMIN/GLOBULIN RATIO 1.59; BILIRUBIN,INDIRECT 0.1 mg/dl (0-1.1); BILIRUBIN,TOTAL 0.1 mg/dl (0.2-1.3); CALCIUM 9.4 mg/dl (8.4-10.2); CREATININE 4.27 mg/dl (0.44-1.00); POTASSIUM 4.7 mmol/L (3.5-5.1); TOTAL PROTEIN 8.3 g/dl (6.1-8.1)
--- NOTE | 2016-10-30 22:29 | ERA ---
ER Documentation Chief Complaint Date/Time DATE: 10/30/16 TIME: 22:28 Chief Complaint vomitng x 1 day, was here yesterday for same HPI The patient is 71-year-old female, presenting to the ER because of sore throat and constipation for the last 2 weeks with intermittent cough. She was seen in the ER yesterday. She denies fever, nasal congestion, neck pain, chest pain, dyspnea, abdominal pain, vomiting, dysuria. She does not smoke, drink Past medical history: Hypertension, depression, chronic kidney disease on hemodialysis Thursday and Thursday Past surgical history: Right upper extremity AV fistula ROS All systems reviewed and are negative except as per history of present illness. Medications Home Meds Active Scripts Bisacodyl* (Dulcolax*) 5 Mg Tablet.dr, 10 MG PO DAILY Y for CONSTIPATION for 7 Days, TAB Prov:ADELE PALACIOS MD 10/30/16 Polyethylene Glycol* (Miralax*) 17 Gm Powd.pack, 17 GM PO DAILY, #7 Prov:ADELE PALACIOS MD 10/30/16 Bisacodyl* (Bisacodyl*) 5 Mg Tablet.dr, 10 MG PO DAILY Y for CONSTIPATION for 28 Days Prov:MICHELLE MCDANIEL MD 10/21/16 Aspirin (Aspirin) 81 Mg Chew, 81 MG PO DAILY for 28 Days, TAB Prov:MICHELLE MCDANIEL MD 10/21/16 Nitroglycerin* (Nitrostat*) 0.4 Mg Tab.subl, 1 TAB SL Q5M Y for ANGINA for 14 Days Prov:MICHELLE MCDANIEL MD 10/21/16 Isosorbide Dinitrate* (Isordil*) 10 Mg Tablet, 10 MG PO TID for 14 Days, TAB Prov:MICHELLE MCDANIEL MD 10/21/16 Lubiprostone* (Amitiza*) 24 Mcg Capsule, 24 MCG PO BID for 30 Days, CAP Prov:MICHELLE MCDANIEL MD 10/21/16 Polyethylene Glycol* (Miralax*) 17 Gm Powd.pack, 17 GM PO DAILY for 28 Days Prov:MICHELLE MCDANIEL MD 06/29/16 Clonidine Hcl* (Clonidine Hcl*) 0.1 Mg Tab, 0.1 MG PO TID for 28 Days, TAB Prov:MICHELLE MCDANIEL MD 06/22/15 Hydralazine Hcl* (Hydralazine Hcl*) 50 Mg Tab, 50 MG PO TID, #180 TAB Prov:OLGA LIDIA FENTON MD 06/20/14 Reported Medications Insulin Glargine* (Lantus*) 100 Unit/Ml Soln, 3 UNIT SC AC MEALS, #1 VIAL 10/17/16 Ferrous Sulfate* (Ferrous Sulfate*) 325 Mg Tabec, 325 MG PO DAILY, TAB 06/25/16 Folic Acid* (Folic Acid*) 1 Mg Tablet, 1 MG PO DAILY, TAB 06/25/16 Tramadol Hcl* (Ultram*) 50 Mg Tablet, 50 MG PO BID Y for PAIN, TAB 06/25/16 Sevelamer Carbonate* (Renvela*) 800 Mg Tablet, 0.8 GM PO WITH MEALS, TAB 09/15/15 Bimatoprost* (Lumigan*) 0.01%-2.5 Ml Opht Drops, 1 DROP BOTH EYES HS, EA 09/15/15 Docusate Sodium* (Dok*) 100 Mg Tablet, 100 MG PO DAILY Y for CONSTIPATION, #30 CAP 08/29/15 Losartan Potassium* (Losartan Potassium*) 50 Mg Tablet, 50 MG PO DAILY 08/15/15 Omeprazole* (Omeprazole*) 20 Mg Capsule.dr, 20 MG PO DAILY, #30 CAP 06/05/15 Amlodipine Besylate* (Amlodipine Besylate*) 10 Mg Tablet, 10 MG PO DAILY, #30 TAB 06/05/15 Gabapentin* (Gabapentin*) 100 Mg Capsule, 100 MG PO TID 08/08/13 Allergies Allergies: Coded Allergies: No Known Drug Allergies (Verified Allergy, Unknown, 10/30/16) PMhx/Soc History of Surgery: Yes (right arm fistula) Anesthesia Reaction: No Hx Neurological Disorder: No Hx Respiratory Disorders: No Hx Cardiac Disorders: Yes (htn) Hx Psychiatric Problems: No (Depression) Hx Miscellaneous Medical Probl: Yes (Dialysis, DM) Hx Alcohol Use: No Hx Substance Use: No Hx Tobacco Use: No Smoking Status: Never smoker Physical Exam Vitals Vital Signs Date Time Temp Pulse Resp B/P Pulse Ox O2 Delivery O2 Flow Rate FiO2 10/30/16 18:36 97.6 72 20 198/82 98 Physical Exam Const: No acute distress. Head: Atraumatic. Eyes: Normal Conjunctiva. ENT: Normal External Ears, Nose and Mouth. Normal oropharynx, bilateral tympanic membranes are within normal limit Neck: Full range of motion. No meningismus. Resp: Clear to auscultation bilaterally. Cardio: Regular rate and rhythm. Abd: Soft, non distended, normal bowel sounds, non tender. Skin: No petechiae or rashes. Back: No midline or flank tenderness. No rigidity, rebound, CVA tenderness Ext: No cyanosis, or edema. Neur: Awake and alert. No focal deficit Psych: Normal Mood and Affect. Result Diagram: 10/30/16211410/30/162114 Results 24 hrs Laboratory Tests Test 10/30/16 21:15 White Blood Count 5.110^3/ul Red Blood Count 3.7310^6/ul Hemoglobin 10.9g/dl Hematocrit 31.9% Mean Corpuscular Volume 85.5fl Mean Corpuscular Hemoglobin 29.2pg Mean Corpuscular Hemoglobin Concent 34.2g/dl Red Cell Distribution Width 16.7% Platelet Count 38834^3/UL Mean Platelet Volume 9.3fl Neutrophils % 73.8% Lymphocytes % 12.8% Monocytes % 11.0% Eosinophils % 1.4% Basophils % 0.6% Nucleated Red Blood Cells % 0.0/100WBC Neutrophils # 3.810^3/ul Lymphocytes # 0.710^3/ul Monocytes # 0.610^3/ul Eosinophils # 0.110^3/ul Basophils # 0.010^3/ul Nucleated Red Blood Cells # 0.010^3/ul Sodium Level 131mmol/L Potassium Level 4.7mmol/L Chloride Level 84mmol/L Carbon Dioxide Level 31mmol/L Anion Gap 21 Blood Urea Nitrogen 24mg/dl Creatinine 4.27mg/dl Glucose Level 181mg/dl Calcium Level 9.4mg/dl Total Bilirubin 0.1mg/dl Direct Bilirubin 0.00mg/dl Indirect Bilirubin 0.1mg/dl Aspartate Amino Transf (AST/SGOT) 27IU/L Alanine Aminotransferase (ALT/SGPT) 25IU/L Alkaline Phosphatase 107IU/L Total Protein 8.3g/dl Albumin 5.1g/dl Globulin 3.20g/dl Albumin/Globulin Ratio 1.59 Lipase 49U/L Current Medications Medications (Trade) Dose Ordered Sig/Leanne Route PRN Reason Start Time Stop Time Status Last Admin Dose Admin Sodium Chloride (NS) 500 ml @ 500 mls/hr Q1H STAT IV 10/30/16 21:16 10/30/16 22:15 DC 10/30/16 21:37 Ondansetron HCl (Zofran Inj) 4 mg ONCE STAT IV 10/30/16 21:16 10/30/16 21:17 DC 10/30/16 21:36 Famotidine (Pepcid Iv) 20 mg ONCE STAT IV 10/30/16 21:16 10/30/16 21:17 DC 10/30/16 21:36 Bisacodyl (Dulcolax Supp) 10 mg ONCE ONCE NC 10/30/16 23:00 10/30/16 23:01 DC 10/30/16 23:02 Ondansetron HCl (Zofran Inj) 4 mg ONCE STAT IV 10/30/16 22:44 10/30/16 22:48 DC 10/30/16 23:02 Procedures/MDM EKG: Read by emergency physician Rate/Rhythm: Normal Sinus Rhythm 77 beats/min QRS, ST, T-waves: No ST elevation, no T inversion, incomplete right bundle branch block Impression: Abnormal EKG MEDICAL MAKING DECISION: The patient is a 71-year-old female, presenting with acute viral syndrome as constipation. She went treated with Dulcolax suppository and Zofran for nausea with good response. The differential diagnoses considered include but are not limited to viral syndrome, bronchitis, pneumonia, cholelithiasis, cholecystitis, cystitis, pancreatitis, hepatitis, gastritis, peptic ulcer disease, gastric ulcer, appendicitis, diverticulitis, cholangitis, choledocholithiasis, partial small bowel obstruction. Departure Diagnosis: Primary Impression: Constipation Additional Impressions: Viral syndrome Anemia Condition: Good Comments She was discharged with MiraLAX and Dulcolax suppository I discussed the findings with the patient. I advised the patient to follow-up with the primary physician in about 1-2 days, sooner if needed and return if any concern. ADELE PALACIOS MD Oct 30, 2016 22:29
[2016-10-30] MEDS ORDERED: BISACODYL 10 MG SUPP PR ONE (23:00)
[2016-10-30] MEDS ORDERED: POLY17PO6 PO (23:05)
[2016-10-30] MEDS ORDERED: BISA-57 PO (23:08)
[2016-10-31] MEDS ORDERED: ACETAMINOPHEN 325 MG TAB PO ONE
[2016-10-31 00:03] VITALS: BP 184/81; PULSE 81; RESP 20; TEMP 97.6
== END 2016-10-31 00:04 | disposition home or self-care (01) ==
LOC: E/R 18:20
DX: K59.00 Constipation, unspecified (principal); B34.9 Viral infection, unspecified; D64.9 Anemia, unspecified; I12.0 Hypertensive chronic kidney disease with stage 5 chronic kidney disease or end stage renal disease; N18.6 End stage renal disease; E11.22 Type 2 diabetes mellitus with diabetic chronic kidney disease; Z99.2 Dependence on renal dialysis
CPT/HCPCS: 36415; 80053; 83690; 85025; 93005; 96374; 96375; 96376; 99284; J2405; J7040

== ENCOUNTER 2016-11-03 22:49 | Inpatient (IN) | payer MEDICARE, BC ==
[~2016-11-03] VITALS: Ht 152.4 cm; Wt 58.0 kg
[~2016-11-03 22:49] MED LIST changes: +BISA-57 PO
[2016-11-03] MEDS ORDERED: NITROGLYCERIN 2% 1 GM OINT PKT TD STA (23:49)
[2016-11-03] MEDS ORDERED: FUROSEMIDE 40 MG INJ IV STA (23:49)
[2016-11-04] VITALS (20 sets, daily range): BP systolic 100–193; BP diastolic 56–97; PULSE 62–84; RESP 16–20; Ht 152.4 cm; Wt 58.0 kg
[2016-11-04 00:21] LABS: ADD SCAN DIFF NO
[2016-11-04 00:28] LABS: BASOPHILS % 0.4 % (0.0-2.0); EOSINOPHILS # 0.2 10^3/ul (0.0-0.5); EOSINOPHILS % 2.7 % (0.0-7.0); HEMATOCRIT 29.3 % (37.0-47.0); LYMPHOCYTES # 0.7 10^3/ul (0.8-2.9); LYMPHOCYTES % 8.5 % (15.0-51.0); MEAN CORPUSCULAR HEMOGLOBIN 29.4 pg (29.0-33.0); MEAN CORPUSCULAR HGB CONC 34.1 g/dl (32.0-37.0); MEAN CORPUSCULAR VOLUME 86.2 fl (82.0-101.0); MEAN PLATELET VOLUME 10.2 fl (7.4-10.4); MONOCYTE # 0.8 10^3/ul (0.3-0.9); MONOCYTES % 9.7 % (0.0-11.0); NEUTROPHIL # 6.4 10^3/ul (1.6-7.5); NEUTROPHILS % 78.5 % (39.0-77.0); PLATELET COUNT 303 10^3/UL (140-415); RED CELL DISTRIBUTION WIDTH 17.2 % (11.5-14.5); WHITE BLOOD COUNT 8.2 10^3/ul (4.8-10.8)
[2016-11-04] MEDS ORDERED: LORAZEPAM 2 MG INJ IV ONE (00:30)
[2016-11-04 00:35] LABS: AADO2 Arterial 35.2 mmHg (7.0-24.0); Arterial Base Excess 6.9 mmol/L (-3.0-3); Arterial COHb 0.7 % (0.0-3.0); Arterial Fraction of Oxyhgb 94.9 % (93.0-99.0); Arterial HCO3 28.5 mmol/L (22.0-26.0); Arterial MetHb 0.3 % (0.0-1.5); Arterial Total Hemglobin 10.3 g/dl (12.0-18.0); MODE ROOM AIR
[2016-11-04 00:37] LABS: INR 0.89; PT RATIO 0.9
[2016-11-04 00:38] LABS: PARTIAL THROMBOPLASTIN TIME 33.3 Sec (25.0-35.0)
[2016-11-04 00:40] LABS: ALANINE AMINOTRANSFERASE 23 IU/L (13-69); ALBUMIN 4.8 g/dl (3.3-4.9); ALKALINE PHOSPHATASE 121 IU/L (42-121); ANION GAP 21 (8-16); ASPARTATE AMINO TRANSFERASE 22 IU/L (15-46); BILIRUBIN,INDIRECT 0.2 mg/dl (0-1.1); BILIRUBIN,TOTAL 0.2 mg/dl (0.2-1.3); BLOOD UREA NITROGEN 21 mg/dl (7-20); CALCIUM 9.2 mg/dl (8.4-10.2); CARBON DIOXIDE 32 mmol/L (21-31); CHLORIDE 86 mmol/L (97-110); CREATININE 3.99 mg/dl (0.44-1.00); GLUCOSE 190 mg/dl (70-220); POTASSIUM 3.4 mmol/L (3.5-5.1); SODIUM 136 mmol/L (135-144)
--- NOTE | 2016-11-04 01:20 | RADRPT ---
PROCEDURE: XR Chest. CLINICAL INDICATION: Dyspnea. TECHNIQUE: Single frontal view of the chest. COMPARISON: 06/25/2016. FINDINGS: Cardiomegaly. Pulmonary vascular congestion and mild patchy air space disease at lung bases. No sig ns of pleural fluid or pneumothorax are seen. Demineralization limits evaluation of fine osseous det ail. Possible remote fracture at the surgical neck of the left humerus. osseous structures and soft tissues are unremarkable. IMPRESSION: Mild failure. RPTAT: [facility] Physician Govind Date Time Electronically viewed and signed by Physician Govind on 11/04/2016 01:20 RS/
[2016-11-04 01:22] LABS: B-TYPE NATRIURETIC PEPTIDE 87600 PG/ML (0-125); TROPONIN-I < 0.012 ng/ml (0.00-0.12)
[2016-11-04] MEDS ORDERED: hydrALAzine 20 MG INJ IV ONE (03:00)
--- NOTE | 2016-11-04 03:07 | ERA ---
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 Patient says she feels like she is drowning. History of end-stage renal disease on dialysis. Physician is Dr. Mcdaniel. Symptomatically started 2 days ago and has gotten progressively worse for the patient. She states that she has been compliant with her dialysis ROS All systems reviewed and are negative except as per history of present illness. Medications Home Meds Active Scripts Bisacodyl* (Dulcolax*) 5 Mg Tablet., 10 MG PO DAILY Y for CONSTIPATION for 7 Days, TAB Prov:ADELE PALACIOS MD 10/30/16 Polyethylene Glycol* (Miralax*) 17 Gm Powd.pack, 17 GM PO DAILY, #7 Prov:ADELE PALACIOS MD 10/30/16 Bisacodyl* (Bisacodyl*) 5 Mg Tablet., 10 MG PO DAILY Y for CONSTIPATION for 28 Days Prov:MICHELLE MCDANIEL MD 10/21/16 Aspirin (Aspirin) 81 Mg Chew, 81 MG PO DAILY for 28 Days, TAB Prov:MICHELLE MCDANIEL MD 10/21/16 Nitroglycerin* (Nitrostat*) 0.4 Mg Tab.subl, 1 TAB SL Q5M Y for ANGINA for 14 Days Prov:MICHELLE MCDANIEL MD 10/21/16 Isosorbide Dinitrate* (Isordil*) 10 Mg Tablet, 10 MG PO TID for 14 Days, TAB Prov:MICHELLE MCDANIEL MD 10/21/16 Lubiprostone* (Amitiza*) 24 Mcg Capsule, 24 MCG PO BID for 30 Days, CAP Prov:MICHELLE MCDANIEL MD 10/21/16 Polyethylene Glycol* (Miralax*) 17 Gm Powd.pack, 17 GM PO DAILY for 28 Days Prov:MICHELLE MCDANIEL MD 06/29/16 Clonidine Hcl* (Clonidine Hcl*) 0.1 Mg Tab, 0.1 MG PO TID for 28 Days, TAB Prov:MICHELLE MCDANIEL MD 06/22/15 Hydralazine Hcl* (Hydralazine Hcl*) 50 Mg Tab, 50 MG PO TID, #180 TAB Prov:OLGA LIDIA FENTON MD 06/20/14 Reported Medications Insulin Glargine* (Lantus*) 100 Unit/Ml Soln, 3 UNIT SC AC MEALS, #1 VIAL 10/17/16 Ferrous Sulfate* (Ferrous Sulfate*) 325 Mg Tabec, 325 MG PO DAILY, TAB 06/25/16 Folic Acid* (Folic Acid*) 1 Mg Tablet, 1 MG PO DAILY, TAB 06/25/16 Tramadol Hcl* (Ultram*) 50 Mg Tablet, 50 MG PO BID Y for PAIN, TAB 06/25/16 Sevelamer Carbonate* (Renvela*) 800 Mg Tablet, 0.8 GM PO WITH MEALS, TAB 09/15/15 Bimatoprost* (Lumigan*) 0.01%-2.5 Ml Opht Drops, 1 DROP BOTH EYES HS, EA 09/15/15 Docusate Sodium* (Dok*) 100 Mg Tablet, 100 MG PO DAILY Y for CONSTIPATION, #30 CAP 08/29/15 Losartan Potassium* (Losartan Potassium*) 50 Mg Tablet, 50 MG PO DAILY 08/15/15 Omeprazole* (Omeprazole*) 20 Mg Capsule.dr, 20 MG PO DAILY, #30 CAP 06/05/15 Amlodipine Besylate* (Amlodipine Besylate*) 10 Mg Tablet, 10 MG PO DAILY, #30 TAB 06/05/15 Gabapentin* (Gabapentin*) 100 Mg Capsule, 100 MG PO TID 08/08/13 Allergies Allergies: Coded Allergies: No Known Drug Allergies (Verified Allergy, Unknown, 10/30/16) PMhx/Soc History of Surgery: Yes (a/v shunt right upper arm) Anesthesia Reaction: No Hx Neurological Disorder: No Hx Respiratory Disorders: No Hx Cardiac Disorders: Yes (htn) Hx Psychiatric Problems: No (Depression) Hx Miscellaneous Medical Probl: Yes (dialysis, esrd) Hx Alcohol Use: No Hx Substance Use: No Hx Tobacco Use: No Smoking Status: Never smoker Physical Exam Vitals Vital Signs Date Time Temp Pulse Resp B/P Pulse Ox O2 Delivery O2 Flow Rate FiO2 11/04/16 01:09 Simple Mask 6 11/04/16 01:09 Simple Mask 6.0 11/04/16 00:57 76 16 206/78 100 Mask 10.0 11/03/16 23:24 98.5 98 18 187/85 98 Physical Exam Const: [] Head: Atraumatic Eyes: Normal Conjunctiva ENT: Normal External Ears, Nose and Mouth. Neck: Full range of motion..~ No meningismus. Resp: Clear to auscultation bilaterally Cardio: Regular rate and rhythm, no murmurs Abd: Soft, non tender, non distended. Normal bowel sounds Skin: No petechiae or rashes Back: No midline or flank tenderness Ext: No cyanosis, or edema Neur: Awake and alert Psych: Normal Mood and Affect Result Diagram: 11/03/16 2355 11/03/16 2355 Results 24 hrs Laboratory Tests Test 11/03/16 23:49 11/03/16 23:55 Blood Gas Specimen Source Blood arterial Arterial Blood Date Drawn 11/04/2016 12:30:34 AM Arterial Blood pH (Temp corrected) 7.594 Arterial Blood pCO2 (Temp correct) 30.1mmhg Arterial Blood pO2 (Temp corrected) 78.5mmHG Arterial Blood HCO3 28.5mmol/L Arterial Blood Base Excess 6.9mmol/L Arterial Blood Oxygen Saturation 95.9mmHG Mani Test N/A Arterial Blood Gas Puncture Site Right Brachial Arterial Blood Carboxyhemoglobin 0.7% Arterial Blood Methemoglobin 0.3% Blood Gas A-a O2 Differential 35.2mmHg Oxyhemoglobin Percent 94.9% Total Hemoglobin 10.3g/dl Blood Gas Temperature 37.0C Blood Gas Modality ROOM AIR FiO2 21.0% Blood Gas Critical Value Read Back Tabitha LYLES MD Blood Gas Notified Whom MG Blood Gas Notified Time 11/04/2016 12:35:06 AM White Blood Count 8.210^3/ul Red Blood Count 3.4010^6/ul Hemoglobin 10.0g/dl Hematocrit 29.3% Mean Corpuscular Volume 86.2fl Mean Corpuscular Hemoglobin 29.4pg Mean Corpuscular Hemoglobin Concent 34.1g/dl Red Cell Distribution Width 17.2% Platelet Count 79367^3/UL Mean Platelet Volume 10.2fl Neutrophils % 78.5% Lymphocytes % 8.5% Monocytes % 9.7% Eosinophils % 2.7% Basophils % 0.4% Nucleated Red Blood Cells % 0.0/100WBC Neutrophils # 6.410^3/ul Lymphocytes # 0.710^3/ul Monocytes # 0.810^3/ul Eosinophils # 0.210^3/ul Basophils # 0.010^3/ul Nucleated Red Blood Cells # 0.010^3/ul Prothrombin Time 12.0Sec Prothrombin Time Ratio 0.9 INR International Normalized Ratio 0.89 Activated Partial Thromboplast Time 33.3Sec Sodium Level 136mmol/L Potassium Level 3.4mmol/L Chloride Level 86mmol/L Carbon Dioxide Level 32mmol/L Anion Gap 21 Blood Urea Nitrogen 21mg/dl Creatinine 3.99mg/dl Glucose Level 190mg/dl Calcium Level 9.2mg/dl Total Bilirubin 0.2mg/dl Direct Bilirubin 0.00mg/dl Indirect Bilirubin 0.2mg/dl Aspartate Amino Transf (AST/SGOT) 22IU/L Alanine Aminotransferase (ALT/SGPT) 23IU/L Alkaline Phosphatase 121IU/L Troponin I < 0.012ng/ml B-Type Natriuretic Peptide [id number]/ML Total Protein 8.0g/dl Albumin 4.8g/dl Globulin 3.20g/dl Albumin/Globulin Ratio 1.50 Current Medications Medications (Trade) Dose Ordered Sig/Leanne Route PRN Reason Start Time Stop Time Status Last Admin Dose Admin Nitroglycerin (Nitroglycerin 2% Oint) 1 inch ONCE STAT TD 11/03/16 23:49 11/03/16 23:50 DC 11/04/16 00:23 Furosemide (Lasix) 40 mg ONCE STAT IV 11/03/16 23:49 11/03/16 23:50 DC 11/04/16 00:22 Lorazepam (Ativan) 1 mg ONCE ONCE IV 11/04/16 00:30 11/04/16 00:31 DC 11/04/16 00:23 Hydralazine HCl (Apresoline) 20 mg ONCE ONCE IV 11/04/16 03:00 11/04/16 03:01 DC 11/04/16 02:51 Procedures/MDM EKG: Rate/Rhythm: Normal Sinus Rhythm QRS, ST, T-waves: No changes consistent w/ acute ischemia Impression: No evidence of ischemia or arrhythmia Chest X-ray 1V Interpreted by me: Soft Tissue: No acute abnormalities Bones: No acute abnormalities Mediastinum/Cardiac Silhouette/Lungs: No acute abnormalities Patient's heart failure symptoms is concerning for acute decompensation and will require inpatient workup and monitoring. Further w/u for ischemia, arrhythmia, PE or dissection will be deferred to the inpatient team. Accepting Care Team: Current data and ongoing care discussed. Time: 2 AM Primary Provider: Hernan Consulting: [GEORGETTE] Outstanding Data: none Critical Care: Time: 45 minutes Treatments/Evaluations: Close monitoring and treatment of unstable vital signs, cardiorespiratory, and neurologic status, while maintaining tight balance of fluid, respiratory, and cardiac interventions. 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
[2016-11-04] MEDS ORDERED: DOCUSATE SODIUM 100 MG CAP PO PRN (05:00)
[2016-11-04] MEDS ORDERED: BISACODYL (EC) 5 MG TAB PO PRN (05:00)
[2016-11-04] MEDS ORDERED: traMADol 50 MG TAB PO PRN (05:00)
[2016-11-04] MEDS ORDERED: GLUCOSE GEL 15 GRAM TUBE BUCCAL PRN (05:30)
[2016-11-04] MEDS ORDERED: GLUCOSE GEL 15 GRAM TUBE PO PRN ×2 (05:30)
[2016-11-04] MEDS ORDERED: DEXTROSE 50% 50 ML SYRINGE IV PRN ×2 (05:30)
[2016-11-04] MEDS ORDERED: GLUCAGON 1 MG INJ IM PRN (05:30)
[2016-11-04] MEDS ORDERED: INSULIN GLARGINE [LANtus] 3 ML PEN SC SCH (08:00)
[2016-11-04] MEDS: GABAPENTIN 100 MG CAP PO SCH ×3 (08:18→21:11)
[2016-11-04] MEDS: FOLIC ACID 1 MG TAB PO SCH (08:18)
[2016-11-04] MEDS: ASPIRIN 81 MG TAB PO SCH (08:19)
[2016-11-04] MEDS: LOSARTAN 50 MG TAB PO SCH (08:19)
[2016-11-04] MEDS: POLYETHYLENE GLYCOL 17 GM PACKET PO SCH (08:19)
[2016-11-04] MEDS: LUBIPROSTONE 24 MCG CAP PO SCH ×2 (08:19→21:11)
[2016-11-04] MEDS: ISOSORBIDE DINITRATE 10 MG TAB PO SCH ×3 (08:19→21:11)
[2016-11-04] MEDS: FERROUS SULFATE (EC) 325 MG TAB PO SCH (08:19)
[2016-11-04] MEDS: INSULIN GLARGINE [LANtus] 3 ML PEN SC SCH (08:22)
[2016-11-04] MEDS: INSULIN ASPART [NOVOLOG] 3 ML PEN SC SCH ×4 (08:25→21:00)
[2016-11-04] MEDS: hydrALAzine 20 MG INJ IV PRN (08:27)
[2016-11-04] MEDS ORDERED: POLYETHYLENE GLYCOL 17 GM PACKET PO SCH (09:00)
[2016-11-04 09:38] LABS: ADD SCAN DIFF NO
[2016-11-04 09:47] LABS: BASOPHILS % 0.4 % (0.0-2.0); EOSINOPHILS # 0.2 10^3/ul (0.0-0.5); EOSINOPHILS % 3.1 % (0.0-7.0); HEMATOCRIT 29.8 % (37.0-47.0); HEMOGLOBIN 9.6 g/dl (12.0-16.0); LYMPHOCYTES # 0.7 10^3/ul (0.8-2.9); LYMPHOCYTES % 10.1 % (15.0-51.0); MEAN CORPUSCULAR HEMOGLOBIN 28.4 pg (29.0-33.0); MEAN CORPUSCULAR HGB CONC 32.2 g/dl (32.0-37.0); MEAN CORPUSCULAR VOLUME 88.2 fl (82.0-101.0); MEAN PLATELET VOLUME 9.8 fl (7.4-10.4); MONOCYTE # 0.8 10^3/ul (0.3-0.9); MONOCYTES % 11.7 % (0.0-11.0); NEUTROPHIL # 5.2 10^3/ul (1.6-7.5); NEUTROPHILS % 74.3 % (39.0-77.0); PLATELET COUNT 301 10^3/UL (140-415); RED BLOOD COUNT 3.38 10^6/ul (4.20-5.40); RED CELL DISTRIBUTION WIDTH 17.3 % (11.5-14.5)
[2016-11-04 10:03] LABS: CALCIUM 8.7 mg/dl (8.4-10.2); CREATININE 4.57 mg/dl (0.44-1.00); POTASSIUM 4.3 mmol/L (3.5-5.1)
[2016-11-04] MEDS: ONDANSETRON 4 MG INJ IV PRN (10:35)
--- NOTE | 2016-11-04 20:22 | QN ---
Documentation Comment [id number] MICHELLE MCDANIEL MD Nov 04, 2016 20:22
[2016-11-04] MEDS ORDERED: BIMATOPROST 0.01% 2.5 ML BTL BOTH EYES SCH (21:00)
[2016-11-04] MEDS: LATANOPROST 0.005% 2.5 ML OPH BOTH EYES SCH ×2 (21:00→21:22)
[2016-11-05] VITALS (12 sets, daily range): BP systolic 141–201; BP diastolic 63–93; PULSE 69–83; RESP 16–20
[2016-11-05] MEDS: ACCU-CHEK XX SCH (02:00)
[2016-11-05] MEDS ORDERED: ACCU-CHEK XX SCH (02:00)
[2016-11-05] MEDS: INSULIN ASPART [NOVOLOG] 3 ML PEN SC SCH ×4 (08:00→20:55)
[2016-11-05 08:25] LABS: ALBUMIN 4.4 g/dl (3.3-4.9); ALBUMIN/GLOBULIN RATIO 1.76; CALCIUM 8.8 mg/dl (8.4-10.2); CREATININE 4.33 mg/dl (0.44-1.00); POTASSIUM 4.3 mmol/L (3.5-5.1); TOTAL PROTEIN 6.9 g/dl (6.1-8.1)
[2016-11-05] MEDS: ASPIRIN 81 MG TAB PO SCH (08:27)
[2016-11-05] MEDS: LUBIPROSTONE 24 MCG CAP PO SCH ×2 (08:27→20:52)
[2016-11-05] MEDS: FOLIC ACID 1 MG TAB PO SCH (08:27)
[2016-11-05] MEDS: ISOSORBIDE DINITRATE 10 MG TAB PO SCH ×3 (08:28→20:52)
[2016-11-05] MEDS: FERROUS SULFATE (EC) 325 MG TAB PO SCH (08:28)
[2016-11-05] MEDS: LOSARTAN 50 MG TAB PO SCH (08:28)
[2016-11-05] MEDS: POLYETHYLENE GLYCOL 17 GM PACKET PO SCH (08:28)
[2016-11-05] MEDS: GABAPENTIN 100 MG CAP PO SCH ×3 (08:28→20:52)
[2016-11-05] MEDS: INSULIN GLARGINE [LANtus] 3 ML PEN SC SCH (08:32)
--- NOTE | 2016-11-05 20:25 | PN ---
Date/Time of Note Date/Time of Note DATE: 11/05/16 TIME: 20:24 Assessment/Plan VTE Prophylaxis VTE Prophylaxis Intervention: other Lines/Catheters IV C[facility] Type (from [facility] Saline Lock Urinary Cath still in place: No Assessment/Plan Chief Complaint/Hosp Course esrd htn s/p sob ashd plan hd Problems: Subjective 24 Hr Interval Summary Respiratory: No shortness of breath Cardiovascular: no complaints Gastrointestinal: No no complaints Exam/Review of Systems Vital Signs Vitals Vital Signs Date Time Temp Pulse Resp B/P Pulse Ox O2 Delivery O2 Flow Rate FiO2 11/05/16 16:30 72 11/05/16 15:25 97.8 18 157/79 98 11/05/16 07:37 Nasal Cannula 2.0 Intake and Output 11/04/16 11/04/16 11/05/16 15:00 23:00 07:00 Intake Total 750 ml 800 ml Output Total 2800 ml Balance -2050 ml 800 ml Exam Respiratory: clear to auscultation Cardiovascular: regular rate and rhythm Gastrointestinal: soft Musculoskeletal: nl extremities to inspection Extremities: normal pulses Results Result Diagram: 11/04/16 0845 11/05/16 0705 Results 24 hrs Laboratory Tests Test 11/04/16 21:10 11/05/16 07:05 11/05/16 08:25 11/05/16 12:08 Bedside Glucose 133 78 109 Sodium Level 135 Potassium Level 4.3 Chloride Level 95 L Carbon Dioxide Level 31 Anion Gap 13 Blood Urea Nitrogen 22 H Creatinine 4.33 H Glucose Level 85 # Calcium Level 8.8 Total Bilirubin 0.0 L Direct Bilirubin 0.00 Indirect Bilirubin 0.0 Aspartate Amino Transf (AST/SGOT) 38 Alanine Aminotransferase (ALT/SGPT) 22 Alkaline Phosphatase 80 Total Protein 6.9 # Albumin 4.4 Globulin 2.50 Albumin/Globulin Ratio 1.76 Test 11/05/16 17:05 Bedside Glucose 112 Medications Medications Current Medications Hydralazine HCl (Apresoline) 10 mg Q6H PRN IV ELEVATED BLOOD PRESSURE Last administered on 11/04/16 08:27; Admin Dose 10 MG; Start 11/04/16 at 05:00 Aspirin (Aspirin) 81 mg DAILY PO Last administered on 11/05/16 08:27; Admin Dose 81 MG; Start 11/04/16 at 09:00 Bisacodyl (Dulcolax) 10 mg DAILY PRN PO CONSTIPATION; Start 11/04/16 at 05:00 Docusate Sodium (Colace) 100 mg DAILY PRN PO CONSTIPATION; Start 11/04/16 at 05 :00 Ferrous Sulfate (Ferrous Sulfate (Ec)) 325 mg DAILY PO Last administered on 08:28; Admin Dose 325 MG; Start 11/04/16 at 09:00 Folic Acid (Folic Acid) 1 mg DAILY PO Last administered on 11/05/16 08:27; Admin Dose 1 MG; Start 11/04/16 at 09:00 Gabapentin (Neurontin) 100 mg TID PO Last administered on 11/05/16 12:09; Admin Dose 100 MG; Start 11/04/16 at 09:00 Hydralazine HCl (Apresoline) 50 mg TID PO Last administered on 11/05/16 12:09 ; Admin Dose 50 MG; Start 11/04/16 at 09:00 Isosorbide Dinitrate (Isordil) 10 mg TID PO Last administered on 11/05/16 12: 09; Admin Dose 10 MG; Start 11/04/16 at 09:00 Losartan Potassium (Cozaar) 50 mg DAILY PO Last administered on 11/05/16 08:28 ; Admin Dose 50 MG; Start 11/04/16 at 09:00 Lubiprostone (Amitiza) 24 mcg BID PO Last administered on 11/05/16 08:27; Admin Dose 24 MCG; Start 11/04/16 at 09:00 Polyethylene Glycol (Miralax) 17 gm DAILY PO Last administered on 11/05/16 08: 28; Admin Dose 17 GM; Start 11/04/16 at 09:00 Tramadol HCl (Ultram) 50 mg BID PRN PO PAIN; Start 11/04/16 at 05:00 Diagnostic Test (Pha) (Accu-Chek) 1 ea 02 XX ; Start 11/05/16 at 02:00 Miscellaneous Information 1 ea NOTE XX ; Start 11/04/16 at 05:30 Glucose (Glutose) 15 gm Q15M PRN PO DECREASED GLUCOSE; Start 11/04/16 at 05:30 Glucose (Glutose) 22.5 gm Q15M PRN PO DECREASED GLUCOSE; Start 11/04/16 at 05: 30 Dextrose (D50w Syringe) 25 ml Q15M PRN IV DECREASED GLUCOSE; Start 11/04/16 at 05:30 Dextrose (D50w Syringe) 50 ml Q15M PRN IV DECREASED GLUCOSE; Start 11/04/16 at 05:30 Glucagon (Glucagen) 1 mg Q15M PRN IM DECREASED GLUCOSE; Start 11/04/16 at 05:30 Glucose (Glutose) 15 gm Q15M PRN BUCCAL DECREASED GLUCOSE; Start 11/04/16 at 05 :30 Latanoprost (Xalatan) 1 drop HS BOTH EYES Last administered on 11/04/16 21:22 ; Admin Dose 1 DROP; Start 11/04/16 at 21:00 Ondansetron HCl (Zofran Inj) 4 mg Q6H PRN IV NAUSEA AND/OR VOMITING Last administered on 11/04/16 10:35; Admin Dose 4 MG; Start 11/04/16 at 10:30 MICHELLE MCDANIEL MD Nov 05, 2016 20:25
[2016-11-06] VITALS (21 sets, daily range): BP systolic 118–202; BP diastolic 58–90; PULSE 67–85; RESP 16–20
[2016-11-06] MEDS: ACCU-CHEK XX SCH (02:16)
[2016-11-06] MEDS: INSULIN ASPART [NOVOLOG] 3 ML PEN SC SCH ×4 (08:00→21:00)
[2016-11-06] MEDS: LOSARTAN 50 MG TAB PO SCH (08:17)
[2016-11-06] MEDS: LUBIPROSTONE 24 MCG CAP PO SCH ×2 (08:17→21:15)
[2016-11-06] MEDS: GABAPENTIN 100 MG CAP PO SCH ×3 (08:22→21:16)
[2016-11-06] MEDS: FERROUS SULFATE (EC) 325 MG TAB PO SCH (08:22)
[2016-11-06] MEDS: ISOSORBIDE DINITRATE 10 MG TAB PO SCH ×3 (08:22→21:16)
[2016-11-06] MEDS: POLYETHYLENE GLYCOL 17 GM PACKET PO SCH (08:22)
[2016-11-06] MEDS: FOLIC ACID 1 MG TAB PO SCH (08:22)
[2016-11-06] MEDS: ASPIRIN 81 MG TAB PO SCH (08:22)
[2016-11-06] MEDS: INSULIN GLARGINE [LANtus] 3 ML PEN SC SCH (08:25)
[2016-11-06] MEDS: ONDANSETRON 4 MG INJ IV PRN ×2 (09:50→21:17)
[2016-11-06] MEDS: hydrALAzine 20 MG INJ IV PRN ×2 (12:19→21:17)
[2016-11-06] MEDS: LATANOPROST 0.005% 2.5 ML OPH BOTH EYES SCH (21:14)
--- NOTE | 2016-11-06 23:13 | PN ---
Date/Time of Note Date/Time of Note DATE: 11/06/16 TIME: 23:12 Assessment/Plan VTE Prophylaxis VTE Prophylaxis Intervention: other Lines/Catheters IV Catheter Type (from Nrs): Saline Lock Urinary Cath still in place: No Assessment/Plan Chief Complaint/Hosp Course esrd htn s/p sob ashd abd pain constipation plan hd Problems: Subjective 24 Hr Interval Summary Subjective hx not possible: other (s/p hd,and constipation) Exam/Review of Systems Vital Signs Vitals Vital Signs Date Time Temp Pulse Resp B/P Pulse Ox O2 Delivery O2 Flow Rate FiO2 11/06/16 20:26 75 11/06/16 20:00 98.7 16 202/90 99 11/06/16 08:00 Nasal Cannula 2.0 Intake and Output 11/05/16 11/05/16 11/06/16 15:00 23:00 07:00 Intake Total 600 ml 150 ml Balance 600 ml 150 ml Exam Neck: supple Respiratory: clear to auscultation Cardiovascular: regular rate and rhythm Gastrointestinal: soft Musculoskeletal: nl extremities to inspection Extremities: normal pulses Results Result Diagram: 11/04/16 0845 11/05/16 0705 Results 24 hrs Laboratory Tests Test 11/06/16 07:47 11/06/16 09:58 11/06/16 12:12 11/06/16 17:21 Bedside Glucose 71 81 121 129 Test 11/06/16 20:35 11/06/16 21:14 11/06/16 22:36 Bedside Glucose 66 L 81 133 Medications Medications Current Medications Hydralazine HCl (Apresoline) 10 mg Q6H PRN IV ELEVATED BLOOD PRESSURE Last administered on 11/06/16 21:17; Admin Dose 10 MG; Start 11/04/16 at 05:00 Aspirin (Aspirin) 81 mg DAILY PO Last administered on 11/06/16 08:22; Admin Dose 81 MG; Start 11/04/16 at 09:00 Bisacodyl (Dulcolax) 10 mg DAILY PRN PO CONSTIPATION; Start 11/04/16 at 05:00 Docusate Sodium (Colace) 100 mg DAILY PRN PO CONSTIPATION; Start 11/04/16 at 05 :00 Ferrous Sulfate (Ferrous Sulfate (Ec)) 325 mg DAILY PO Last administered on 08:22; Admin Dose 325 MG; Start 11/04/16 at 09:00 Folic Acid (Folic Acid) 1 mg DAILY PO Last administered on 11/06/16 08:22; Admin Dose 1 MG; Start 11/04/16 at 09:00 Gabapentin (Neurontin) 100 mg TID PO Last administered on 11/06/16 21:16; Admin Dose 100 MG; Start 11/04/16 at 09:00 Hydralazine HCl (Apresoline) 50 mg TID PO Last administered on 11/06/16 21:15 ; Admin Dose 50 MG; Start 11/04/16 at 09:00 Isosorbide Dinitrate (Isordil) 10 mg TID PO Last administered on 11/06/16 21: 16; Admin Dose 10 MG; Start 11/04/16 at 09:00 Losartan Potassium (Cozaar) 50 mg DAILY PO Last administered on 11/06/16 08:17 ; Admin Dose 50 MG; Start 11/04/16 at 09:00 Lubiprostone (Amitiza) 24 mcg BID PO Last administered on 11/06/16 21:15; Admin Dose 24 MCG; Start 11/04/16 at 09:00 Polyethylene Glycol (Miralax) 17 gm DAILY PO Last administered on 11/06/16 08: 22; Admin Dose 17 GM; Start 11/04/16 at 09:00 Tramadol HCl (Ultram) 50 mg BID PRN PO PAIN Last administered on 11/06/16 09: 49; Admin Dose 50 MG; Start 11/04/16 at 05:00 Diagnostic Test (Pha) (Accu-Chek) 1 ea 02 XX Last administered on 11/06/16 02: 16; Admin Dose 1 EA; Start 11/05/16 at 02:00 Miscellaneous Information 1 ea NOTE XX ; Start 11/04/16 at 05:30 Glucose (Glutose) 15 gm Q15M PRN PO DECREASED GLUCOSE; Start 11/04/16 at 05:30 Glucose (Glutose) 22.5 gm Q15M PRN PO DECREASED GLUCOSE; Start 11/04/16 at 05: 30 Dextrose (D50w Syringe) 25 ml Q15M PRN IV DECREASED GLUCOSE; Start 11/04/16 at 05:30 Dextrose (D50w Syringe) 50 ml Q15M PRN IV DECREASED GLUCOSE; Start 7/11/17 at 05:30 Glucagon (Glucagen) 1 mg Q15M PRN IM DECREASED GLUCOSE; Start 11/04/16 at 05:30 Glucose (Glutose) 15 gm Q15M PRN BUCCAL DECREASED GLUCOSE; Start 11/04/16 at 05 :30 Latanoprost (Xalatan) 1 drop HS BOTH EYES Last administered on 11/06/16 21:14 ; Admin Dose 1 DROP; Start 11/04/16 at 21:00 Ondansetron HCl (Zofran Inj) 4 mg Q6H PRN IV NAUSEA AND/OR VOMITING Last administered on 11/06/16 21:17; Admin Dose 4 MG; Start 11/04/16 at 10:30 MICHELLE MCDANIEL MD Nov 06, 2016 23:13
[2016-11-07] VITALS (13 sets, daily range): BP systolic 146–209; BP diastolic 69–90; PULSE 74–86; RESP 16–20
[2016-11-07] MEDS: ACCU-CHEK XX SCH (02:00)
[2016-11-07] MEDS: hydrALAzine 20 MG INJ IV PRN ×2 (05:39→12:59)
[2016-11-07] MEDS: INSULIN ASPART [NOVOLOG] 3 ML PEN SC SCH ×4 (08:00→21:00)
[2016-11-07] MEDS: ASPIRIN 81 MG TAB PO SCH (08:48)
[2016-11-07] MEDS: LUBIPROSTONE 24 MCG CAP PO SCH ×2 (08:48→21:20)
[2016-11-07] MEDS: FERROUS SULFATE (EC) 325 MG TAB PO SCH (08:48)
[2016-11-07] MEDS: GABAPENTIN 100 MG CAP PO SCH ×3 (08:48→21:20)
[2016-11-07] MEDS: ISOSORBIDE DINITRATE 10 MG TAB PO SCH ×3 (08:48→21:21)
[2016-11-07] MEDS: FOLIC ACID 1 MG TAB PO SCH (08:48)
[2016-11-07] MEDS: POLYETHYLENE GLYCOL 17 GM PACKET NGT SCH (08:48)
[2016-11-07] MEDS: LOSARTAN 50 MG TAB PO SCH (08:48)
[2016-11-07] MEDS: INSULIN GLARGINE [LANtus] 3 ML PEN SC SCH (08:54)
[2016-11-07] MEDS: ONDANSETRON 4 MG INJ IV PRN ×2 (10:27→21:25)
[2016-11-07] MEDS ORDERED: TOPIRAMATE 25 MG TAB PO PRN (11:00)
--- NOTE | 2016-11-07 11:55 | RADRPT ---
PROCEDURE: XR Abdomen 1 View. CLINICAL INDICATION: Double pain and vomiting. TECHNIQUE: AP abdomen x-ray. COMPARISON: June 27, 2016 FINDINGS: Large amount of formed stool is seen throughout the colon. No dilated loops of small bowel are obse rved. No organomegaly is identified. Vascular calcifications are identified in the pelvis and both i nguinal regions. Degenerative changes are seen in the hips and spine. IMPRESSION: Large amount of formed stool throughout the colon suggesting constipation. If further characterization of the abdomen is needed CT should be considered. RPTAT: AA .Jay Espitia MD, Date Time Electronically viewed and signed by .Jay Espitia MD, on 11/07/2016 11:55 .P/
--- NOTE | 2016-11-07 12:33 | PN ---
Date/Time of Note Date/Time of Note DATE: 11/07/16 TIME: 12:30 Assessment/Plan VTE Prophylaxis VTE Prophylaxis Intervention: ambulation Lines/Catheters IV Catheter Type (from [facility]): Saline Lock Urinary Cath still in place: No Assessment/Plan Chief Complaint/Hosp Course 1. esrd 2. htn, uncontrolled 3. s/p sob 4. ashd 5. abd pain 6. constipation 7. DM type II controlled Problems: Assessment/Plan 1. continue hd 2. Dr Salcedo for cardiology consult 3. better HTN controlled Subjective 24 Hr Interval Summary Subjective hx not possible: other (pt is sleeping) Exam/Review of Systems Vital Signs Vitals Vital Signs Date Time Temp Pulse Resp B/P Pulse Ox O2 Delivery O2 Flow Rate FiO2 11/07/16 12:15 82 11/07/16 11:54 98.0 20 162/73 100 11/07/16 07:48 Nasal Cannula 2.0 Intake and Output 11/06/16 11/06/16 11/07/16 15:00 23:00 07:00 Intake Total 1020 ml 500 ml Output Total 2600 ml Balance -1580 ml 500 ml Exam Respiratory: clear to auscultation Cardiovascular: regular rate and rhythm Gastrointestinal: soft Results Result Diagram: 11/04/16 0845 11/05/16 0705 Results 24 hrs Laboratory Tests Test 11/06/16 17:21 11/06/16 20:35 11/06/16 21:14 11/06/16 22:36 Bedside Glucose 129 66 L 81 133 Test 11/07/16 02:30 11/07/16 08:46 Bedside Glucose 93 119 Medications Medications Current Medications Hydralazine HCl (Apresoline) 10 mg Q6H PRN IV ELEVATED BLOOD PRESSURE Last administered on 11/07/16 05:39; Admin Dose 10 MG; Start 11/04/16 at 05:00 Aspirin (Aspirin) 81 mg DAILY PO Last administered on 11/07/16 08:48; Admin Dose 81 MG; Start 11/04/16 at 09:00 Bisacodyl (Dulcolax) 10 mg DAILY PRN PO CONSTIPATION; Start 11/04/16 at 05:00 Docusate Sodium (Colace) 100 mg DAILY PRN PO CONSTIPATION; Start 11/04/16 at 05 :00 Ferrous Sulfate (Ferrous Sulfate (Ec)) 325 mg DAILY PO Last administered on 08:48; Admin Dose 325 MG; Start 11/04/16 at 09:00 Folic Acid (Folic Acid) 1 mg DAILY PO Last administered on 11/07/16 08:48; Admin Dose 1 MG; Start 11/04/16 at 09:00 Gabapentin (Neurontin) 100 mg TID PO Last administered on 11/07/16 08:48; Admin Dose 100 MG; Start 11/04/16 at 09:00 Hydralazine HCl (Apresoline) 50 mg TID PO Last administered on 11/07/16 08:48 ; Admin Dose 50 MG; Start 11/04/16 at 09:00 Isosorbide Dinitrate (Isordil) 10 mg TID PO Last administered on 11/07/16 08: 48; Admin Dose 10 MG; Start 11/04/16 at 09:00 Lubiprostone (Amitiza) 24 mcg BID PO Last administered on 11/07/16 08:48; Admin Dose 24 MCG; Start 11/04/16 at 09:00 Diagnostic Test (Pha) (Accu-Chek) 1 ea 02 XX Last administered on 11/06/16 02: 16; Admin Dose 1 EA; Start 11/05/16 at 02:00 Miscellaneous Information 1 ea NOTE XX ; Start 11/04/16 at 05:30 Glucose (Glutose) 15 gm Q15M PRN PO DECREASED GLUCOSE; Start 11/04/16 at 05:30 Glucose (Glutose) 22.5 gm Q15M PRN PO DECREASED GLUCOSE; Start 11/04/16 at 05: 30 Dextrose (D50w Syringe) 25 ml Q15M PRN IV DECREASED GLUCOSE; Start 11/04/16 at 05:30 Dextrose (D50w Syringe) 50 ml Q15M PRN IV DECREASED GLUCOSE; Start 11/04/16 at 05:30 Glucagon (Glucagen) 1 mg Q15M PRN IM DECREASED GLUCOSE; Start 11/04/16 at 05:30 Glucose (Glutose) 15 gm Q15M PRN BUCCAL DECREASED GLUCOSE; Start 11/04/16 at 05 :30 Latanoprost (Xalatan) 1 drop HS BOTH EYES Last administered on 11/06/16 21:14 ; Admin Dose 1 DROP; Start 11/04/16 at 21:00 Ondansetron HCl (Zofran Inj) 4 mg Q6H PRN IV NAUSEA AND/OR VOMITING Last administered on 11/07/16t 10:27; Admin Dose 4 MG; Start 11/04/16 at 10:30 Polyethylene Glycol (Miralax) 17 gm DAILY NGT ; Start 11/07/16 at 09:00 Topiramate (Topamax) 25 mg DAILY PO ; Start 11/07/16 at 12:00; Stop 11/11/16 at 09:01 Losartan Potassium (Cozaar) 100 mg BID PO ; Start 11/07/16 at 21:00; Status ERIK MILLER Nov 07, 2016 12:32
[2016-11-07] MEDS: TOPIRAMATE 25 MG TAB PO SCH (12:54)
[2016-11-07] MEDS ORDERED: METOCLOPRAMIDE 10 MG INJ IV ONE (18:00)
[2016-11-07] MEDS ORDERED: CLONIDINE 0.1 MG/24 HR PATCH TRANSDERM SCH (18:30)
[2016-11-07 18:51] LABS: CREATINE KINASE 39 IU/L (23-200)
[2016-11-07 19:00] LABS: CK-MB 0.57 ng/ml (0.0-2.4)
[2016-11-07 19:01] LABS: TROPONIN-I < 0.012 ng/ml (0.00-0.12)
[2016-11-07] MEDS ORDERED: LOSARTAN 50 MG TAB PO SCH (21:00)
[2016-11-07] MEDS: LATANOPROST 0.005% 2.5 ML OPH BOTH EYES SCH (22:36)
[2016-11-08] VITALS (18 sets, daily range): BP systolic 100–186; BP diastolic 43–85; PULSE 70–87; RESP 16–18
[2016-11-08] MEDS: hydrALAzine 20 MG INJ IV PRN
[2016-11-08 01:36] LABS: CK-MB 0.56 ng/ml (0.0-2.4); TROPONIN-I 0.019 ng/ml (0.00-0.12)
[2016-11-08] MEDS: ACCU-CHEK XX SCH (02:00)
[2016-11-08 08:16] LABS: ADD SCAN DIFF NO
[2016-11-08 08:24] LABS: BASOPHIL # 0.1 10^3/ul (0.0-0.1); BASOPHILS % 0.8 % (0.0-2.0); EOSINOPHILS # 0.3 10^3/ul (0.0-0.5); EOSINOPHILS % 4.2 % (0.0-7.0); HEMATOCRIT 29.3 % (37.0-47.0); HEMOGLOBIN 9.5 g/dl (12.0-16.0); LYMPHOCYTES % 16.3 % (15.0-51.0); MEAN CORPUSCULAR HEMOGLOBIN 29.4 pg (29.0-33.0); MEAN CORPUSCULAR HGB CONC 32.4 g/dl (32.0-37.0); MEAN CORPUSCULAR VOLUME 90.7 fl (82.0-101.0); MEAN PLATELET VOLUME 9.4 fl (7.4-10.4); MONOCYTE # 0.7 10^3/ul (0.3-0.9); MONOCYTES % 11.9 % (0.0-11.0); NEUTROPHIL # 4.1 10^3/ul (1.6-7.5); NEUTROPHILS % 66.5 % (39.0-77.0); PLATELET COUNT 298 10^3/UL (140-415); RED BLOOD COUNT 3.23 10^6/ul (4.20-5.40); RED CELL DISTRIBUTION WIDTH 17.1 % (11.5-14.5); WHITE BLOOD COUNT 6.1 10^3/ul (4.8-10.8)
[2016-11-08 08:34] LABS: CHOL/HDL RATIO 3.2 RATIO
[2016-11-08 08:38] LABS: CREATININE 6.23 mg/dl (0.44-1.00); POTASSIUM 5.2 mmol/L (3.5-5.1)
[2016-11-08 08:54] LABS: CK-MB 0.45 ng/ml (0.0-2.4); TROPONIN-I 0.024 ng/ml (0.00-0.12)
[2016-11-08] MEDS: POLYETHYLENE GLYCOL 17 GM PACKET NGT SCH (09:00)
--- NOTE | 2016-11-08 09:25 | RADRPT ---
Vent Rate: 79 bpm RR Interval: 0 msec TN Interval: 160 msec QRS Duration: 98 msec QT Interval: 394 msec QTC Interval: 451 msec P-R-T [place]: 34 - -27 - 13 degrees Normal sinus rhythm Normal ECG Electronically Signed By: Mandeep Ruiz [id number]
[2016-11-08] MEDS: INSULIN GLARGINE [LANtus] 3 ML PEN SC SCH (10:24)
[2016-11-08] MEDS: INSULIN ASPART [NOVOLOG] 3 ML PEN SC SCH ×3 (10:25→18:05)
[2016-11-08] MEDS: GABAPENTIN 100 MG CAP PO SCH ×2 (13:00→14:43)
[2016-11-08] MEDS: ISOSORBIDE DINITRATE 10 MG TAB PO SCH ×2 (13:00→14:43)
--- NOTE | 2016-11-08 13:09 | CONS ---
Date/Time of Note Date/Time of Note DATE: 11/08/16 TIME: 13:04 Assessment/Plan Assessment/Plan Chief Complaint/Hosp Course IMP: 1.CHF-diastolic by echo 09/2016 2.HTN-uncontrolled 3.abnl ecg-no chest pain/negative trop x 3 4.ESRD on HD 5.anemmia 6. DM 7. abd pain-constipation by KUB Recc: -Tele -serial ecg's -HD for volume removal -Continue hydralazine with increase to improve BP control as well as clonidine TTS -Continue losartan/isordil at current doses -Add procardia XL to improve BP control -Bowel regimen Problems: Consultation Date/Type/Reason Admit Date/Time Nov 04, 2016 at 02:27 Initial Consult Date Exam/Review of Systems Vital Signs Vitals Vital Signs Date Time Temp Pulse Resp B/P Pulse Ox O2 Delivery O2 Flow Rate FiO2 11/08/16 12:32 98.0 75 18 173/77 98 11/07/16 20:00 Nasal Cannula 2.0 Intake and Output 11/07/16 11/07/16 11/08/16 15:00 23:00 07:00 Intake Total 400 ml 300 ml Balance 400 ml 300 ml Exam Review of Systems: CONSTITUTIONAL: No fevers, chills. PULMONARY: No sob CARDIOVASCULAR: No chest pain/palpitations GASTROINTESTINAL: c/o abd pain GENITOURINARY: No hematuria/dysuria. MUSCULOSKELETAL: No myagias/arthalgias. PSYCHIATRIC: The patient denies depression. NEUROLOGIC: No weakness Constitutional: alert Psych: no complaints Head: normocephalic ENMT: mucosa pink and moist Neck: jvd (8-9 cm water), supple Respiratory: diminished breath sounds (at bases/B) Cardiovascular: regular rate and rhythm Gastrointestinal: other (mild TTP diffusely), soft Musculoskeletal: muscle tone (normal) Extremities: edema (none) Neurological: other (No focal deficits) Results Result Diagram: 11/08/16 0804 11/08/16 0804 Results 24 hrs Laboratory Tests Test 11/07/16 17:29 11/07/16 18:13 11/07/16 21:18 11/08/16 00:37 Bedside Glucose 138 150 Creatine Kinase 39 33 Creatine Kinase Index 1.5 1.7 Creatinine Kinase MB (Mass) 0.57 0.56 Troponin I < 0.012 0.019 Test 11/08/16 02:21 11/08/16 08:01 11/08/16 08:04 11/08/16 09:17 Bedside Glucose 120 163 Creatine Kinase 32 Creatine Kinase Index 1.4 Creatinine Kinase MB (Mass) 0.45 Troponin I 0.024 White Blood Count 6.1 Red Blood Count 3.23 L Hemoglobin 9.5 L Hematocrit 29.3 L Mean Corpuscular Volume 90.7 Mean Corpuscular Hemoglobin 29.4 Mean Corpuscular Hemoglobin Concent 32.4 Red Cell Distribution Width 17.1 H Platelet Count 298 Mean Platelet Volume 9.4 Neutrophils % 66.5 Lymphocytes % 16.3 Monocytes % 11.9 H Eosinophils % 4.2 Basophils % 0.8 Nucleated Red Blood Cells % 0.0 Neutrophils # 4.1 Lymphocytes # 1.0 Monocytes # 0.7 Eosinophils # 0.3 Basophils # 0.1 Nucleated Red Blood Cells # 0.0 Sodium Level 142 Potassium Level 5.2 H Chloride Level 96 L Carbon Dioxide Level 28 Anion Gap 23 H Blood Urea Nitrogen 32 H Creatinine 6.23 H Glucose Level 114 Calcium Level 9.0 Triglycerides Level 58 Cholesterol Level 200 LDL Cholesterol, Calculated 127 HDL Cholesterol 61 Cholesterol/HDL Ratio 3.2 Test 11/08/16 12:14 Bedside Glucose 175 Medications Medications Current Medications Hydralazine HCl (Apresoline) 10 mg Q6H PRN IV ELEVATED BLOOD PRESSURE Last administered on 11/08/16 00:00; Admin Dose 10 MG; Start 11/04/16 at 05:00 Aspirin (Aspirin) 81 mg DAILY PO Last administered on 11/07/16 08:48; Admin Dose 81 MG; Start 11/04/16 at 09:00 Bisacodyl (Dulcolax) 10 mg DAILY PRN PO CONSTIPATION; Start 11/04/16 at 05:00 Docusate Sodium (Colace) 100 mg DAILY PRN PO CONSTIPATION; Start 11/04/16 at 05 :00 Ferrous Sulfate (Ferrous Sulfate (Ec)) 325 mg DAILY PO Last administered on 08:48; Admin Dose 325 MG; Start 11/04/16 at 09:00 Folic Acid (Folic Acid) 1 mg DAILY PO Last administered on 11/07/16 08:48; Admin Dose 1 MG; Start 11/04/16 at 09:00 Gabapentin (Neurontin) 100 mg TID PO Last administered on 11/07/16 21:20; Admin Dose 100 MG; Start 11/04/16 at 09:00 Isosorbide Dinitrate (Isordil) 10 mg TID PO Last administered on 11/07/16 21: 21; Admin Dose 10 MG; Start 11/04/16 at 09:00 Lubiprostone (Amitiza) 24 mcg BID PO Last administered on 11/07/16 21:20; Admin Dose 24 MCG; Start 11/04/16 at 09:00 Diagnostic Test (Pha) (Accu-Chek) 1 ea 02 XX Last administered on 11/06/16 02: 16; Admin Dose 1 EA; Start 11/05/16 at 02:00 Miscellaneous Information 1 ea NOTE XX ; Start 11/04/16 at 05:30 Glucose (Glutose) 15 gm Q15M PRN PO DECREASED GLUCOSE; Start 11/04/16 at 05:30 Glucose (Glutose) 22.5 gm Q15M PRN PO DECREASED GLUCOSE; Start 11/04/16 at 05: 30 Dextrose (D50w Syringe) 25 ml Q15M PRN IV DECREASED GLUCOSE; Start 11/04/16 at 05:30 Dextrose (D50w Syringe) 50 ml Q15M PRN IV DECREASED GLUCOSE; Start 11/04/16 at 05:30 Glucagon (Glucagen) 1 mg Q15M PRN IM DECREASED GLUCOSE; Start 11/04/16 at 05:30 Glucose (Glutose) 15 gm Q15M PRN BUCCAL DECREASED GLUCOSE; Start 11/04/16 at 05 :30 Latanoprost (Xalatan) 1 drop HS BOTH EYES Last administered on 11/07/16 22:36 ; Admin Dose 1 DROP; Start 11/04/16 at 21:00 Ondansetron HCl (Zofran Inj) 4 mg Q6H PRN IV NAUSEA AND/OR VOMITING Last administered on 11/07/16 21:25; Admin Dose 4 MG; Start 11/04/16 at 10:30 Polyethylene Glycol (Miralax) 17 gm DAILY NGT ; Start 11/07/16 at 09:00 Topiramate (Topamax) 25 mg DAILY PO Last administered on 11/07/16 12:54; Admin Dose 25 MG; Start 11/07/16 at 12:00; Stop 11/11/16 at 09:01 Losartan Potassium (Cozaar) 100 mg BID PO Last administered on 11/07/16 21:21 ; Admin Dose 100 MG; Start 11/07/16 at 21:00 Hydralazine HCl (Apresoline) 75 mg Q8 PO Last administered on 11/08/16 06:37; Admin Dose 75 MG; Start 11/07/16 at 22:00 Clonidine HCl (Catapres-Tts 1 Patch) 1 patch Q7D TRANSDERM Last administered on 11/07/16 18:54; Admin Dose 1 PATCH; Start 11/07/16 at 18:30 ANNAMARIE SANTANA Nov 08, 2016 13:09
[2016-11-08] MEDS ORDERED: NIFEdipine (XL) 30 MG TAB PO SCH (14:00)
--- NOTE | 2016-11-08 14:07 | PDOCDIS ---
Discharge Instructions CONDITION Patient Condition: Good HOME CARE INSTRUCTIONS: Diet Instructions: Low Fat /CholesterolSpecial Diet: carb controlled ACTIVITY: Activity Restrictions: Slowly Increase Activity FOLLOW UP/APPOINTMENTS Follow-up Plan PCP i week SCHOOL/WORK RELEASE May return to School/Work with: With Restrictions ERIK PERALES Nov 08, 2016 14:06
[2016-11-08] MEDS ORDERED: HYDR-3672 PO (14:21)
[2016-11-08] MEDS ORDERED: NIFE30TA2 PO (14:21)
[2016-11-08] MEDS ORDERED: ONDA4TAB95 PO (14:21)
[2016-11-08] MEDS ORDERED: LANT3I SC (14:21)
[2016-11-08] MEDS ORDERED: ATOR40TA68 PO (14:21)
[2016-11-08] MEDS ORDERED: TOPI25TA38 PO (14:21)
[2016-11-08] MEDS ORDERED: CATTTS1 TRANSDERM (14:21)
--- NOTE | 2016-11-08 14:25 | PN ---
Date/Time of Note Date/Time of Note DATE: 11/08/16 TIME: 14:24 Assessment/Plan VTE Prophylaxis VTE Prophylaxis Intervention: ambulation Lines/Catheters IV [facility] Saline Lock Urinary Cath still in place: No Assessment/Plan Chief Complaint/Hosp Course 1. esrd 2. htn, controlled 3. s/p sob 4. ashd 5. abd pain 6. constipation 7. DM type II controlled Problems: Assessment/Plan 1,Discharge home Subjective 24 Hr Interval Summary Constitutional: improved, no complaints Exam/Review of Systems Vital Signs Vitals Vital Signs Date Time Temp Pulse Resp B/P Pulse Ox O2 Delivery O2 Flow Rate FiO2 11/08/16 12:32 98.0 75 18 173/77 98 11/07/16 20:00 Nasal Cannula 2.0 Intake and Output 11/07/16 11/07/16 11/08/16 15:00 23:00 07:00 Intake Total 400 ml 300 ml Balance 400 ml 300 ml Exam Psych: nl mood/affect, no complaints Neck: supple Respiratory: clear to auscultation Cardiovascular: regular rate and rhythm Results Result Diagram: 11/08/16 0804 11/08/16 0804 Results 24 hrs Laboratory Tests Test 11/07/16 17:29 11/07/16 18:13 11/07/16 21:18 11/08/16 00:37 Bedside Glucose 138 150 Creatine Kinase 39 33 Creatine Kinase Index 1.5 1.7 Creatinine Kinase MB (Mass) 0.57 0.56 Troponin I < 0.012 0.019 Test 11/08/16 02:21 11/08/16 08:01 11/08/16 08:04 11/08/16 09:17 Bedside Glucose 120 163 Creatine Kinase 32 Creatine Kinase Index 1.4 Creatinine Kinase MB (Mass) 0.45 Troponin I 0.024 White Blood Count 6.1 Red Blood Count 3.23 L Hemoglobin 9.5 L Hematocrit 29.3 L Mean Corpuscular Volume 90.7 Mean Corpuscular Hemoglobin 29.4 Mean Corpuscular Hemoglobin Concent 32.4 Red Cell Distribution Width 17.1 H Platelet Count 298 Mean Platelet Volume 9.4 Neutrophils % 66.5 Lymphocytes % 16.3 Monocytes % 11.9 H Eosinophils % 4.2 Basophils % 0.8 Nucleated Red Blood Cells % 0.0 Neutrophils # 4.1 Lymphocytes # 1.0 Monocytes # 0.7 Eosinophils # 0.3 Basophils # 0.1 Nucleated Red Blood Cells # 0.0 Sodium Level 142 Potassium Level 5.2 H Chloride Level 96 L Carbon Dioxide Level 28 Anion Gap 23 H Blood Urea Nitrogen 32 H Creatinine 6.23 H Glucose Level 114 Calcium Level 9.0 Triglycerides Level 58 Cholesterol Level 200 LDL Cholesterol, Calculated 127 HDL Cholesterol 61 Cholesterol/HDL Ratio 3.2 Test 11/08/16 12:14 Bedside Glucose 175 Medications Medications Current Medications Hydralazine HCl (Apresoline) 10 mg Q6H PRN IV ELEVATED BLOOD PRESSURE Last administered on 11/08/16 00:00; Admin Dose 10 MG; Start 11/04/16 at 05:00 Aspirin (Aspirin) 81 mg DAILY PO Last administered on 11/07/16 08:48; Admin Dose 81 MG; Start 11/04/16 at 09:00 Bisacodyl (Dulcolax) 10 mg DAILY PRN PO CONSTIPATION; Start 11/04/16 at 05:00 Docusate Sodium (Colace) 100 mg DAILY PRN PO CONSTIPATION; Start 11/04/16 at 05 :00 Ferrous Sulfate (Ferrous Sulfate (Ec)) 325 mg DAILY PO Last administered on 08:48; Admin Dose 325 MG; Start 11/04/16 at 09:00 Folic Acid (Folic Acid) 1 mg DAILY PO Last administered on 11/07/16 08:48; Admin Dose 1 MG; Start 11/04/16 at 09:00 Gabapentin (Neurontin) 100 mg TID PO Last administered on 11/07/16 21:20; Admin Dose 100 MG; Start 11/04/16 at 09:00 Isosorbide Dinitrate (Isordil) 10 mg TID PO Last administered on 11/07/16 21: 21; Admin Dose 10 MG; Start 11/04/16 at 09:00 Lubiprostone (Amitiza) 24 mcg BID PO Last administered on 11/07/16 21:20; Admin Dose 24 MCG; Start 11/04/16 at 09:00 Diagnostic Test (Pha) (Accu-Chek) 1 ea 02 XX Last administered on 11/06/16 02: 16; Admin Dose 1 EA; Start 11/05/16 at 02:00 Miscellaneous Information 1 ea NOTE XX ; Start 11/04/16 at 05:30 Glucose (Glutose) 15 gm Q15M PRN PO DECREASED GLUCOSE; Start 11/04/16 at 05:30 Glucose (Glutose) 22.5 gm Q15M PRN PO DECREASED GLUCOSE; Start 11/04/16 at 05: 30 Dextrose (D50w Syringe) 25 ml Q15M PRN IV DECREASED GLUCOSE; Start 11/04/16 at 05:30 Dextrose (D50w Syringe) 50 ml Q15M PRN IV DECREASED GLUCOSE; Start 11/04/16 at 05:30 Glucagon (Glucagen) 1 mg Q15M PRN IM DECREASED GLUCOSE; Start 11/04/16 at 05:30 Glucose (Glutose) 15 gm Q15M PRN BUCCAL DECREASED GLUCOSE; Start 11/04/16 at 05 :30 Latanoprost (Xalatan) 1 drop HS BOTH EYES Last administered on 11/07/16 22:36 ; Admin Dose 1 DROP; Start 11/04/16 at 21:00 Ondansetron HCl (Zofran Inj) 4 mg Q6H PRN IV NAUSEA AND/OR VOMITING Last administered on 11/07/16 21:25; Admin Dose 4 MG; Start 11/04/16 at 10:30 Polyethylene Glycol (Miralax) 17 gm DAILY NGT ; Start 11/07/16 at 09:00 Topiramate (Topamax) 25 mg DAILY PO Last administered on 11/07/16 12:54; Admin Dose 25 MG; Start 11/07/16 at 12:00; Stop 11/11/16 at 09:01 Clonidine HCl (Catapres-Tts 1 Patch) 1 patch Q7D TRANSDERM Last administered on 11/07/16 18:54; Admin Dose 1 PATCH; Start 11/07/16 at 18:30 Hydralazine HCl (Apresoline) 100 mg Q8 PO ; Start 11/08/16 at 14:00 Nifedipine (Procardia Xl) 30 mg BID PO ; Start 11/08/16 at 14:00 Insulin Glargine (Lantus) 10 unit QHS SC ; Start 11/08/16 at 21:00 Atorvastatin Calcium (Lipitor) 40 mg HS PO ; Start 11/08/16 at 21:00 Losartan Potassium (Cozaar) 100 mg DAILY PO ; Start 11/08/16 at 14:30 ERIK PERALES Nov 08, 2016 14:25
[2016-11-08] MEDS ORDERED: LOSARTAN 50 MG TAB PO SCH (14:30)
[2016-11-08] MEDS: FERROUS SULFATE (EC) 325 MG TAB PO SCH (14:43)
[2016-11-08] MEDS: TOPIRAMATE 25 MG TAB PO SCH (14:44)
[2016-11-08] MEDS: FOLIC ACID 1 MG TAB PO SCH (14:45)
[2016-11-08] MEDS: LUBIPROSTONE 24 MCG CAP PO SCH (14:45)
[2016-11-08] MEDS: ASPIRIN 81 MG TAB PO SCH (14:46)
[2016-11-08] MEDS ORDERED: PROCHLORPERAZINE 25 MG SUPP PR ONE (18:30)
[2016-11-08] MEDS ORDERED: ATORVASTATIN 40 MG TAB PO SCH (21:00)
[2016-11-08] MEDS ORDERED: INSULIN GLARGINE [LANtus] 3 ML PEN SC SCH (21:00)
[2016-11-08] MEDS ORDERED: LUBIPROSTONE 24 MCG CAP PO SCH (21:00)
--- NOTE | 2016-11-09 08:42 | HP ---
DATE OF ADMISSION: 11/04/2016 HISTORY OF PRESENT ILLNESS: The patient is a 71-year-old female who has a history of ESRD. Recently discharged from this hospital where she was admitted with the diagnosis of pleuritic substernal chest pain. The patient underwent hemodialysis and now the patient presents back with shortness of breath and is going to be admitted for further management. The patient previously had echocardiogram done, shows ejection fraction of 60%. PAST MEDICAL HISTORY: Positive for: 1. ESRD. 2. Hypertension. 3. Osteoporosis. 4. Diabetes mellitus. 5. Constipation. 6. Abdominal pain. ALLERGIES: NEGATIVE. FAMILY HISTORY: Noncontributory. SOCIAL HISTORY: Negative. MEDICATIONS: 1. Aspirin. 2. Lumigan. 3. Bisacodyl. 4. Docusate sodium. 5. Iron sulfate. 6. Folic acid. 7. Gabapentin. 8. Hydralazine. 9. Insulin. 10. Isosorbide. 11. Losartan. 12. ppi 13. Omeprazole 14. MiraLAX. 15. Tramadol. Currently the patient is on: 16. Aspirin. 17. Dulcolax. 18. Iron sulfate. 19. Gabapentin. 20. Hydralazine. 21. Insulin. 22. Isosorbide. REVIEW OF SYSTEMS: HEENT: Unremarkable. RESPIRATORY: Shortness of breath. CARDIOVASCULAR: No chest pain or palpitations. GASTROINTESTINAL: Abdomen unremarkable. EXTREMITIES: Unremarkable. PHYSICAL EXAMINATION: GENERAL APPEARANCE: The patient is awake, alert. Mild short of breath. VITAL SIGNS: Pulse 75, blood pressure 127/77. HEENT: Head is atraumatic, normocephalic. neg palpable. Not pale conjunctivae, no icterus. NECK: Supple. LUNGS: Basal rales. CARDIAC: S1, S2 normal. Systolic murmur. ABDOMEN: Soft. Bowel sounds positive. No palpable organs. EXTREMITIES: No cyanosis, clubbing. Edema positive. NEUROLOGIC: CLINICAL RESEARCH SPECIALIST: The patient is awake, alert. No deficits. DATA: Hematocrit 29.8, sodium 136, potassium 3.4. IMPRESSION: The patient has: 1. Hypertension. 2. End-stage renal disease. 3. Diabetes mellitus. 4. Shortness of breath. 5. Anemia. 6. Hypernatremia. 7. Electrolyte imbalance. 8. Diastolic heart disease. 9. Dyslipidemia. 10. Elevated BNP. PLAN: 1. Continue diabetic, renal diet. 2. Hemodialysis. 3. Orders were done. Dictated By: Dano Becerra MD /josé manuel/nicole /Document#: [id number] MTDD
== END 2016-11-08 20:00 | disposition home or self-care (01) | DRG 291 ==
LOC: E/R 22:49 → MS4 11-04 02:27
PROVIDERS: ADMIT Internal Medicine Nephrology; ATTEND Internal Medicine Nephrology
PROC: 5A1D60Z (ICD-10-PCS; principal; 2016-11-04)
DX: I13.2 Hypertensive heart and chronic kidney disease with heart failure and with stage 5 chronic kidney disease, or end stage renal disease (principal); N18.6 End stage renal disease; N17.9 Acute kidney failure, unspecified; I16.1 Hypertensive emergency; I50.30 Unspecified diastolic (congestive) heart failure; E11.8 Type 2 diabetes mellitus with unspecified complications; Z99.2 Dependence on renal dialysis; Z79.4 Long term (current) use of insulin; K59.00 Constipation, unspecified
CPT/HCPCS: 36415; 36600; 71010; 74000; 80048; 80053; 80061; 82550; 82553; 82803; 82962; 83880; 84484; 85025; 85610; 85730; 90935; 93005; 96374; 96375; J0360; J1815; J1940; J2060; J2405; J2765

== ENCOUNTER 2016-12-04 21:55 | Inpatient (IN) | END 2016-12-10 16:00 | disposition home health service (06) | DRG 682 | DX: I12.0 Hypertensive chronic kidney disease with stage 5 chronic kidney disease or end stage renal disease (principal); N18.6 End stage renal disease; E11.22 Type 2 diabetes mellitus with diabetic chronic kidney disease; M81.0 Age-related osteoporosis without current pathological fracture; R07.9 Chest pain, unspecified; K59.00 Constipation, unspecified; Z91.15 Patient's noncompliance with renal dialysis; R10.9 Unspecified abdominal pain ==

== ENCOUNTER 2016-12-16 10:16 | Emergency (ER) | payer MEDICARE, BC ==
[~2016-12-16] VITALS: Ht 152.4 cm; Wt 53.3 kg
[~2016-12-16 10:16] MED LIST changes: -AMLO-147 PO; +ATOR40TA68 PO; -BISA5TAB6 PO; +CATTTS1 TRANSDERM; -CLON-379 PO; -LOSA50TA6 PO; +NIFE30TA2 PO; +NIFE60TA7 PO; -NIT4 SL; +ONDA4TAB95 PO; -SEVE800T7 PO; +TOPI25TA38 PO
[2016-12-16 10:20] VITALS: Ht 152.4 cm; Wt 53.3 kg
[2016-12-16] MEDS ORDERED: SOD CHLORIDE 0.9% 250 ML IV STA (10:52)
[2016-12-16] MEDS ORDERED: METOCLOPRAMIDE 10 MG INJ IV STA (10:52)
[2016-12-16] MEDS ORDERED: morphine 2 MG INJ IV STA (10:52)
[2016-12-16 11:40] LABS: ABNORMAL IP MESSAGE 1; BASOPHILS % 0.9 % (0.0-2.0); EOSINOPHILS # 0.1 10^3/ul (0.0-0.5); EOSINOPHILS % 1.8 % (0.0-7.0); HEMATOCRIT 25.9 % (37.0-47.0); HEMOGLOBIN 9.1 g/dl (12.0-16.0); LYMPHOCYTES # 0.6 10^3/ul (0.8-2.9); LYMPHOCYTES % 12.5 % (15.0-51.0); MEAN CORPUSCULAR HEMOGLOBIN 32.2 pg (29.0-33.0); MEAN CORPUSCULAR HGB CONC 35.1 g/dl (32.0-37.0); MEAN CORPUSCULAR VOLUME 91.5 fl (82.0-101.0); MEAN PLATELET VOLUME 9.6 fl (7.4-10.4); MONOCYTE # 0.4 10^3/ul (0.3-0.9); MONOCYTES % 9.5 % (0.0-11.0); NEUTROPHILS % 75.1 % (39.0-77.0); PLATELET COUNT 375 10^3/UL (140-415); RED BLOOD COUNT 2.83 10^6/ul (4.20-5.40); RED CELL DISTRIBUTION WIDTH 13.9 % (11.5-14.5); WHITE BLOOD COUNT 4.4 10^3/ul (4.8-10.8)
[2016-12-16 11:42] LABS: POSITIVE DIFF @See below
[2016-12-16 12:09] LABS: ALBUMIN 4.1 g/dl (3.3-4.9); ALBUMIN/GLOBULIN RATIO 1.28; BILIRUBIN,INDIRECT 0.1 mg/dl (0-1.1); BILIRUBIN,TOTAL 0.1 mg/dl (0.2-1.3); CALCIUM 9.1 mg/dl (8.4-10.2); CREATININE 3.52 mg/dl (0.44-1.00); POTASSIUM 3.8 mmol/L (3.5-5.1); TOTAL PROTEIN 7.3 g/dl (6.1-8.1)
--- NOTE | 2016-12-16 13:09 | ERD ---
ER Documentation Chief Complaint Date/Time DATE: 12/16/16 TIME: 12:55 Chief Complaint subramanian. left ear pain, last dialysis yesterday HPI This 71-year-old female presents to the emergency room for evaluation of left- sided ear pain, nausea and vomiting. The patient had ear pain on and off for the past month. She denies any trauma to the ear. She describes her pain as a aching pain with mild ear popping. The patient has also been vomiting and vomited up blood one time. The patient has been on Zofran at home with minimal relief. The patient was brought to the emergency room today for evaluation. ROS All systems reviewed and are negative except as per history of present illness. Medications Home Meds Active Scripts Lubiprostone* (Amitiza*) 24 Mcg Capsule, 24 MCG PO BID for 28 Days, CAP Prov:MICHELLE MCDANIEL MD 12/09/16 Nifedipine (Afeditab CR) 60 Mg Tablet.sa, 60 MG PO DAILY for 28 Days Prov:MICHELLE MCDANIEL MD 12/09/16 Hydralazine Hcl* (Apresoline*) 50 Mg Tab, 100 MG PO Q8 for 28 Days, TAB Prov:MICHELLE MCDANIEL MD 12/09/16 Clonidine Patch (CATAPRES PATCH) 0.1 Mg/24 Hr Patch, 1 PATCH TRANSDERM Q7D for 28 Days, #30 PATCH Prov:MICHELLE MCDANIEL MD 12/09/16 Bisacodyl* (Dulcolax*) 5 Mg Tablet.dr, 10 MG PO DAILY Y for CONSTIPATION for 7 Days, #30 TAB Prov:MICHELLE MCDANIEL MD 12/09/16 Polyethylene Glycol* (Miralax*) 17 Gm Powd.pack, 17 GM PO DAILY for 28 Days Prov:MICHELLE MCDANIEL MD 12/09/16 Docusate Sodium* (Dok*) 100 Mg Tablet, 100 MG PO DAILY Y for CONSTIPATION for 28 Days, #30 CAP Prov:MICHELLE MCDANIEL MD 12/09/16 Ondansetron Hcl* (Ondansetron Hcl*) 4 Mg Tablet, 4 MG PO Q6 Y for NAUSEA AND OR VOMITING for 10 Days, TAB Prov:ERIK PERALES 11/08/16 Topiramate* (Topamax*) 25 Mg Tablet, 25 MG PO DAILY for 30 Days, TAB Prov:MEZENTSEVERIK Chicas 11/08/16 Nifedipine (Procardia Xl) 30 Mg Tab.er.24, 60 MG PO DAILY for 30 Days, TAB Prov:ERIK PERALES 11/08/16 Insulin Glargine* (Lantus*) 100 Unit/Ml Soln, 10 UNIT SC QHS for 30 Days Prov:ERIK PERALES 11/08/16 Atorvastatin* (Atorvastatin*) 40 Mg Tablet, 40 MG PO HS for 30 Days, TAB Prov:ERIK PERALES 11/08/16 Aspirin (Aspirin) 81 Mg Chew, 81 MG PO DAILY for 28 Days, TAB Prov:MICHELLE MCDANIEL MD 10/21/16 Isosorbide Dinitrate* (Isordil*) 10 Mg Tablet, 10 MG PO TID for 14 Days, TAB Prov:MICHELLE MCDANIEL MD 10/21/16 Reported Medications Ferrous Sulfate* (Ferrous Sulfate*) 325 Mg Tabec, 325 MG PO DAILY, TAB 06/25/16 Folic Acid* (Folic Acid*) 1 Mg Tablet, 1 MG PO DAILY, TAB 06/25/16 Tramadol Hcl* (Ultram*) 50 Mg Tablet, 50 MG PO BID Y for PAIN, TAB 06/25/16 Bimatoprost* (Lumigan*) 0.01%-2.5 Ml Opht Drops, 1 DROP BOTH EYES HS, EA 09/15/15 Omeprazole* (Omeprazole*) 20 Mg Capsule.dr, 20 MG PO DAILY, #30 CAP 06/05/15 Gabapentin* (Gabapentin*) 100 Mg Capsule, 100 MG PO TID 08/08/13 Discontinued Scripts Hydralazine Hcl* (Apresoline*) 50 Mg Tab, 100 MG PO Q8 for 30 Days, TAB Prov:ERIK PERALES 11/08/16 Clonidine Patch (CATAPRES PATCH) 0.1 Mg/24 Hr Patch, 1 PATCH TRANSDERM Q7D for 30 Days, PATCH Prov:ERIK PERALES 11/08/16 Lubiprostone* (Amitiza*) 24 Mcg Capsule, 24 MCG PO BID for 30 Days, CAP Prov:MICHELLE MCDANIEL MD 10/21/16 Allergies Allergies: Coded Allergies: No Known Drug Allergies (Unverified Allergy, Unknown, 12/05/16) PMhx/Soc History of Surgery: Yes (OSMEL AV SHUNT) Anesthesia Reaction: No Hx Neurological Disorder: No Hx Respiratory Disorders: No Hx Cardiac Disorders: Yes (HTN, CHF, , HTN) Hx Psychiatric Problems: No Hx Miscellaneous Medical Probl: Yes (HTN, CKD, DM, OSTEOPOROSIS) Hx Alcohol Use: No Hx Substance Use: No Hx Tobacco Use: No Smoking Status: Never smoker Physical Exam Vitals Vital Signs Date Time Temp Pulse Resp B/P Pulse Ox O2 Delivery O2 Flow Rate FiO2 12/16/16 10:20 98.1 91 18 181/77 99 Physical Exam Const: No acute distress Head: Atraumatic Eyes: Normal Conjunctiva ENT: Left tympanic membrane erythematous, no bulging of the tympanic membrane , right tympanic membrane within normal limits, no mastoid bone tenderness normal External Ears, Nose and Mouth. Neck: Full range of motion..~ No meningismus. Resp: Clear to auscultation bilaterally Cardio: Regular rate and rhythm, no murmurs Abd: Soft, non tender, non distended. Normal bowel sounds Skin: No petechiae or rashes Back: No midline or flank tenderness Ext: No cyanosis, or edema Neur: Awake and alert Psych: Normal Mood and Affect Result Diagram: 12/16/16 1120 12/16/16 1120 Results 24 hrs Laboratory Tests Test 12/16/16 11:20 White Blood Count 4.410^3/ul Red Blood Count 2.8310^6/ul Hemoglobin 9.1g/dl Hematocrit 25.9% Mean Corpuscular Volume 91.5fl Mean Corpuscular Hemoglobin 32.2pg Mean Corpuscular Hemoglobin Concent 35.1g/dl Red Cell Distribution Width 13.9% Platelet Count 61422^3/UL Mean Platelet Volume 9.6fl Neutrophils % 75.1% Lymphocytes % 12.5% Monocytes % 9.5% Eosinophils % 1.8% Basophils % 0.9% Nucleated Red Blood Cells % 0.0/100WBC Neutrophils # (Manual) 310^3/ul Lymphocytes # 0.610^3/ul Monocytes # 0.410^3/ul Eosinophils # 0.110^3/ul Basophils # 0.010^3/ul Nucleated Red Blood Cells # 0.010^3/ul Sodium Level 139mmol/L Potassium Level 3.8mmol/L Chloride Level 87mmol/L Carbon Dioxide Level 34mmol/L Anion Gap 22 Blood Urea Nitrogen 17mg/dl Creatinine 3.52mg/dl Glucose Level 123mg/dl Calcium Level 9.1mg/dl Total Bilirubin 0.1mg/dl Direct Bilirubin 0.00mg/dl Indirect Bilirubin 0.1mg/dl Aspartate Amino Transf (AST/SGOT) 33IU/L Alanine Aminotransferase (ALT/SGPT) 23IU/L Alkaline Phosphatase 72IU/L Total Protein 7.3g/dl Albumin 4.1g/dl Globulin 3.20g/dl Albumin/Globulin Ratio 1.28 Lipase 42U/L Current Medications Medications (Trade) Dose Ordered Sig/Leanne Route PRN Reason Start Time Stop Time Status Last Admin Dose Admin Sodium Chloride (NS) 250 ml @ 250 mls/hr Q1H STAT IV 12/16/16 10:52 12/16/16 11:51 DC 12/16/16 10:52 Morphine Sulfate (morphine) 2 mg ONCE STAT IV 12/16/16 10:52 12/16/16 10:53 DC 12/16/16 10:52 Metoclopramide HCl (Reglan) 5 mg ONCE STAT IV 12/16/16 10:52 12/16/16 10:53 DC 12/16/16 10:52 Procedures/MDM This 71-year-old female presents to the ER for evaluation of ear pain and vomiting. When I evaluated this patient the patient was in no acute distress. The patient was hemodynamically stable and nontoxic appearing. The patient did receive Reglan in the emergency room. Lab work was obtained which does not show any gross abnormalities. Her hemoglobin is at her baseline. The patient will be discharged at this time with a prescription for Phenergan, and amoxicillin for left-sided otitis media. The patient will be discharged after her CAT scan results are reviewed. Departure Diagnosis: Primary Impression: Otitis media, left Additional Impressions: Nausea and vomiting ESRD (end stage renal disease) Condition: Stable GUERRERO ELIZABETH DO Dec 16, 2016 13:08
[2016-12-16] MEDS ORDERED: PROM25TA14 PO (13:10)
[2016-12-16] MEDS ORDERED: AMOX500T PO (13:10)
[2016-12-16 13:19] VITALS: TEMP 98.3
--- NOTE | 2016-12-16 13:29 | RADRPT ---
PROCEDURE: CT Abdomen and pelvis without contrast. CLINICAL INDICATION: Abdominal pain TECHNIQUE: CT scan of the abdomen and pelvis without contrast was performed on a multidetector hig h-resolution CT scan. . Coronal and sagittal reformatted images were obtained from the axial [facility] e images. Standard CT scan of the abdomen pelvis without contrast protocols were performed. The total exam CTDI equals and vomiting 6.99 mGy and the total exam DLP equals 364.42 mGy-cm. One or more of the following dose reduction techniques were used: - Automated exposure control. - Adjustment of the mA and/or kV according to patient size. Use of iterative reconstruction technique. COMPARISON: None. FINDINGS: There is extensive atherosclerotic vascular disease but no evidence of aneurysm. There is motion artifact degrading optimal evaluation. The appendix is unremarkable. There is a small hiatal hernia. The stomach is otherwise unremarkabl e. The small bowel and large bowel are unremarkable. The kidneys are atrophic without calcified renal calculi hydronephrosis or intra renal masses bilate rally. The urinary bladder is unremarkable. The uterus is anteverted with extensive atherosclerotic vascular disease involving the year and andre joaquin. The uterus is otherwise unremarkable. There are no adnexal masses. No evidence of intra-abdominal free air, free fluid, abscesses or lymphadenopathy. The liver spleen pancreas and adrenal glands are unremarkable. The gallbladder is unremarkable and there is no evidence of biliary ductal dilation. There is wells lobular emphysema involving the lung bases which are otherwise unremarkable. There is coronary artery disease. Tiny anterior pericardial effusion maximal depth 3 mm. The abdominal pelvic brandon are unremarkable. The bones are osteopenic. There are no acute osseous findings are osteoblastic/osteolytic lesions. IMPRESSION: 1. Motion artifact degrading optimal evaluation. 2. Small hiatal hernia. No other gastrointestinal disease demonstrated. 3. Atrophic kidneys without calcified urinary calculi, hydronephrosis or ventral masses bilaterally . 4. No evidence of intra-abdominal free air fluid abscesses or lymphadenopathy. 5. Bilateral lower lobe and lobular emphysema. 6. Tiny anterior pericardial effusion maximal depth 3 mm. RPTAT:AAJJ Physician Sj Date Time Electronically viewed and signed by Physician Sj on 12/16/2016 13:29 BM/
[2016-12-16] MEDS ORDERED: ONDANSETRON 4 MG INJ ONE (13:54)
[2016-12-16] MEDS ORDERED: ONDANSETRON 4 MG INJ IV STA (13:58)
[2016-12-16 15:16] VITALS: RESP 16
[2016-12-16] MEDS ORDERED: hydrALAzine 20 MG INJ IV ONE (15:30)
[2016-12-16 15:43] VITALS: BP 170/72; PULSE 83
== END 2016-12-16 16:58 | disposition home or self-care (01) ==
LOC: E/R 10:16
DX: H66.92 Otitis media, unspecified, left ear (principal); R11.2 Nausea with vomiting, unspecified; N18.6 End stage renal disease; I12.0 Hypertensive chronic kidney disease with stage 5 chronic kidney disease or end stage renal disease; I50.9 Heart failure, unspecified; E11.9 Type 2 diabetes mellitus without complications; Z79.4 Long term (current) use of insulin; Z79.82 Long term (current) use of aspirin
CPT/HCPCS: 36415; 74176; 80053; 83690; 85025; 96374; 96375; 99285; J0360; J2270; J2405; J2765; J7040

== ENCOUNTER 2016-12-23 21:14 | Emergency (ER) | payer BC, MEDICARE ==
[~2016-12-23] VITALS: Ht 154.9 cm; Wt 55.0 kg
[~2016-12-23 21:14] MED LIST changes: +AMOX500T PO; +PROM25TA14 PO
[2016-12-23 21:29] VITALS: Ht 154.9 cm; Wt 55.0 kg
== END 2016-12-24 01:44 | disposition left against medical advice (07) ==
LOC: E/R 21:14
DX: Z53.21 Procedure and treatment not carried out due to patient leaving prior to being seen by health care provider (principal)

== ENCOUNTER 2016-12-28 19:52 | Inpatient (IN) | payer MEDICARE, BC ==
[~2016-12-28] VITALS: Ht 154.9 cm; Wt 60.2 kg
[2016-12-29] MEDS ORDERED: ONDANSETRON 4 MG INJ IV STA ×3 (00:07→13:01)
[2016-12-29] MEDS ORDERED: SOD CHLORIDE 0.9% 500 ML IV STA (00:07)
[2016-12-29] MEDS ORDERED: morphine 2 MG INJ IV STA (00:07)
[2016-12-29] MEDS ORDERED: hydrALAzine 20 MG INJ IV ONE (01:30)
--- NOTE | 2016-12-29 01:53 | RADRPT ---
PROCEDURE: XR Chest. CLINICAL INDICATION: Possible sepsis. TECHNIQUE: Single frontal view of the chest. COMPARISON: Plain film chest dated 12/05/2016. FINDINGS: Cardiomegaly and atherosclerotic calcifications in the thoracic aorta. Hyperinflation of COPD in ch anges of centrolobular emphysema. Mild pulmonary vascular congestion. The lungs are otherwise clear . No signs of pleural fluid or pneumothorax are seen. The osseous structures and soft tissues are un remarkable. IMPRESSION: Mild pulmonary vascular congestion. RPTAT: UU Physician Govind Date Time Electronically viewed and signed by Physician Govind on 12/29/2016 01:53 RS/
[2016-12-29 02:20] LABS: INR 1.01; PARTIAL THROMBOPLASTIN TIME 28.6 Sec (25.0-35.0); PROTIME 13.3 Sec (12.2-14.2)
[2016-12-29 02:30] LABS: ABNORMAL IP MESSAGE 1; BASOPHILS % 0.3 % (0.0-2.0); EOSINOPHILS % 0.2 % (0.0-7.0); HEMATOCRIT 25.4 % (37.0-47.0); HEMOGLOBIN 8.7 g/dl (12.0-16.0); LYMPHOCYTES # 0.4 10^3/ul (0.8-2.9); LYMPHOCYTES % 3.3 % (15.0-51.0); MEAN CORPUSCULAR HEMOGLOBIN 32.5 pg (29.0-33.0); MEAN CORPUSCULAR HGB CONC 34.3 g/dl (32.0-37.0); MEAN CORPUSCULAR VOLUME 94.8 fl (82.0-101.0); MEAN PLATELET VOLUME 9.5 fl (7.4-10.4); MONOCYTE # 1.1 10^3/ul (0.3-0.9); MONOCYTES % 9.9 % (0.0-11.0); NEUTROPHILS % 85.9 % (39.0-77.0); PLATELET COUNT 298 10^3/UL (140-415); RED BLOOD COUNT 2.68 10^6/ul (4.20-5.40); RED CELL DISTRIBUTION WIDTH 14.6 % (11.5-14.5); WHITE BLOOD COUNT 11.4 10^3/ul (4.8-10.8)
--- NOTE | 2016-12-29 02:33 | RADRPT ---
PROCEDURE: CT abdomen and pelvis without contrast. CLINICAL INDICATION: Possible sepsis. TECHNIQUE: Noncontrast CT examination the abdomen and pelvis, with axial, sagittal and coronal refo rmatted images. CTDI: 6.67 mGy and DLP: 338.69 mGy-cm. COMPARISON: CT examination the abdomen and pelvis dated 12/16/2016. FINDINGS: CT abdomen: The lung bases are clear. The heart size is enlarged, without pericardial thickening or effusion. The liver is normal in size and density without focal mass or intrahepatic biliary dilatation. The spleen is normal in size and homogeneous in density. The stomach is partially collapsed, but is robi ssly unremarkable. The pancreas as visualized is normal. The gallbladder and biliary tree are unre markable and there is no evidence for biliary dilatation. The adrenal glands are symmetric and norm al. The kidneys are symmetrically unremarkable as well. No renal calculus or obstructive uropathy o r mass lesion is seen. The aorta is of normal caliber. Aortic vascular calcifications are present. There is no retroperit bailey lymphadenopathy. The casey hepatis region is clear. Pancolitis with mural thickening and luminal narrowing and mild pericolonic fat inflammatory changes . CT pelvis: Colitis in the sigmoid colon compatible with pancolitis. The pelvic organs are normal. The pelvic s idewalls and inguinal regions are clear. The rectum is unremarkable. No mass, lymphadenopathy, or free fluid is seen. No acute inflammation is seen. The appendix is unremarkable. The surrounding osseous structures are remarkable for mild degenerative spondylosis of the spine. N o osteolytic or osteoblastic lesion is detected. IMPRESSION: Pancolitis. RPTAT: [facility] Physician Govind Date Time Electronically viewed and signed by Physician Govind on 12/29/2016 02:33 RS/
[2016-12-29 02:34] LABS: POSITIVE DIFF @See below
[2016-12-29 02:40] LABS: ALBUMIN 3.9 g/dl (3.3-4.9); ALBUMIN/GLOBULIN RATIO 1.39; BILIRUBIN,DIRECT 0.1 mg/dl (0.00-0.20); BILIRUBIN,TOTAL 0.1 mg/dl (0.2-1.3); CREATININE 5.51 mg/dl (0.44-1.00); TOTAL PROTEIN 6.7 g/dl (6.1-8.1)
[2016-12-29 02:46] LABS: POTASSIUM 2.7 mmol/L (3.5-5.1)
[2016-12-29] MEDS ORDERED: PIPER-TAZO 3.375 GM IV (PMX) 100 ML IVPB STA (02:56)
[2016-12-29] MEDS ORDERED: metroNIDAZOLE 500 MG/NS (PMX) 100 ML IVPB STA (02:56)
[2016-12-29 02:57] LABS: TROPONIN-I 0.143 ng/ml (0.00-0.12)
[2016-12-29] MEDS ORDERED: POTASSIUM CHLORIDE 250 ML IVPB ONE (03:00)
--- NOTE | 2016-12-29 03:28 | ERA ---
ER Documentation Chief Complaint Date/Time DATE: 12/29/16 TIME: 03:26 Chief Complaint vomiting x3 days, ap today unable to keep meds down 3 days HPI This is a 72 female comes in with vomiting for 3 days nonbilious nonbloody and nonprojectile associated with abdominal pain started today. Patient is unable to keep any bowel medications. No fevers no chills. Abdominal pain mild to moderate intensity diffuse in location with no exacerbating or alleviating factors. No sick contacts. No changes in bowel habits. No other current issues. ROS All systems reviewed and are negative except as per history of present illness. Medications Home Meds Active Scripts Promethazine Hcl* (Phenergan*) 25 Mg Tablet, 25 MG PO Q6H Y for VOMITTING, #30 TAB Prov:GUERRERO ELIZABETH DO 12/16/16 Amoxicillin Trihydrate (Amoxicillin) 500 Mg Tablet, 500 MG PO Q8, #30 TAB Prov:GUERRERO ELIZABETH DO 12/16/16 Lubiprostone* (Amitiza*) 24 Mcg Capsule, 24 MCG PO BID for 28 Days, CAP Prov:MICHELLE MCDANIEL MD 12/09/16 Nifedipine (Afeditab CR) 60 Mg Tablet.sa, 60 MG PO DAILY for 28 Days Prov:MICHELLE MCDANIEL MD 12/09/16 Hydralazine Hcl* (Apresoline*) 50 Mg Tab, 100 MG PO Q8 for 28 Days, TAB Prov:MICHELLE MCDANIEL MD 12/09/16 Clonidine Patch (CATAPRES PATCH) 0.1 Mg/24 Hr Patch, 1 PATCH TRANSDERM Q7D for 28 Days, #30 PATCH Prov:MICHELLE MCDANIEL MD 12/09/16 Bisacodyl* (Dulcolax*) 5 Mg Tablet.dr, 10 MG PO DAILY Y for CONSTIPATION for 7 Days, #30 TAB Prov:MICHELLE MCDANIEL MD 12/09/16 Polyethylene Glycol* (Miralax*) 17 Gm Powd.pack, 17 GM PO DAILY for 28 Days Prov:MICHELLE MCDANIEL MD 12/09/16 Docusate Sodium* (Dok*) 100 Mg Tablet, 100 MG PO DAILY Y for CONSTIPATION for 28 Days, #30 CAP Prov:MICHELLE MCDANIEL MD 12/09/16 Ondansetron Hcl* (Ondansetron Hcl*) 4 Mg Tablet, 4 MG PO Q6 Y for NAUSEA AND OR VOMITING for 10 Days, TAB Prov:ERIK PERALES 11/08/16 Topiramate* (Topamax*) 25 Mg Tablet, 25 MG PO DAILY for 30 Days, TAB Prov:ERIK PERALES 11/08/16 Nifedipine (Procardia Xl) 30 Mg Tab.er.24, 60 MG PO DAILY for 30 Days, TAB Prov:ERIK PERALES 11/08/16 Insulin Glargine* (Lantus*) 100 Unit/Ml Soln, 10 UNIT SC QHS for 30 Days Prov:ERIK PERALES 11/08/16 Atorvastatin* (Atorvastatin*) 40 Mg Tablet, 40 MG PO HS for 30 Days, TAB Prov:ERIK PERALES 11/08/16 Aspirin (Aspirin) 81 Mg Chew, 81 MG PO DAILY for 28 Days, TAB Prov:MICHELLE MCDANIEL MD 10/21/16 Isosorbide Dinitrate* (Isordil*) 10 Mg Tablet, 10 MG PO TID for 14 Days, TAB Prov:MICHELLE MCDANIEL MD 10/21/16 Reported Medications Ferrous Sulfate* (Ferrous Sulfate*) 325 Mg Tabec, 325 MG PO DAILY, TAB 06/25/16 Folic Acid* (Folic Acid*) 1 Mg Tablet, 1 MG PO DAILY, TAB 06/25/16 Tramadol Hcl* (Ultram*) 50 Mg Tablet, 50 MG PO BID Y for PAIN, TAB 06/25/16 Bimatoprost* (Lumigan*) 0.01%-2.5 Ml Opht Drops, 1 DROP BOTH EYES HS, EA 09/15/15 Omeprazole* (Omeprazole*) 20 Mg Capsule.dr, 20 MG PO DAILY, #30 CAP 06/05/15 Gabapentin* (Gabapentin*) 100 Mg Capsule, 100 MG PO TID 08/08/13 Allergies Allergies: Coded Allergies: No Known Drug Allergies (Unverified Allergy, Unknown, 12/05/16) PMhx/Soc History of Surgery: Yes (OSMEL AV SHUNT) Anesthesia Reaction: No Hx Neurological Disorder: No Hx Respiratory Disorders: No Hx Cardiac Disorders: Yes (HTN, CHF, , HTN) Hx Psychiatric Problems: No Hx Miscellaneous Medical Probl: Yes (HTN, CKD, DM, OSTEOPOROSIS) Hx Alcohol Use: No Hx Substance Use: No Hx Tobacco Use: No Smoking Status: Never smoker Physical Exam Vitals Vital Signs Date Time Temp Pulse Resp B/P Pulse Ox O2 Delivery O2 Flow Rate FiO2 12/29/16 01:32 98.9 87 15 203/74 98 Room Air 12/28/16 20:00 99.7 110 20 237/104 100 Physical Exam Const: [] Head: Atraumatic Eyes: Normal Conjunctiva ENT: Normal External Ears, Nose and Mouth. Neck: Full range of motion..~ No meningismus. Resp: Clear to auscultation bilaterally Cardio: Regular rate and rhythm, no murmurs Abd: Soft, non tender, non distended. Normal bowel sounds Skin: No petechiae or rashes Back: No midline or flank tenderness Ext: No cyanosis, or edema Neur: Awake and alert Psych: Normal Mood and Affect Result Diagram: 12/29/1613412/29/16134 Results 24 hrs Laboratory Tests Test 12/29/16 01:35 White Blood Count 11.410^3/ul Red Blood Count 2.6810^6/ul Hemoglobin 8.7g/dl Hematocrit 25.4% Mean Corpuscular Volume 94.8fl Mean Corpuscular Hemoglobin 32.5pg Mean Corpuscular Hemoglobin Concent 34.3g/dl Red Cell Distribution Width 14.6% Platelet Count 62710^3/UL Mean Platelet Volume 9.5fl Neutrophils % 85.9% Lymphocytes % 3.3% Monocytes % 9.9% Eosinophils % 0.2% Basophils % 0.3% Nucleated Red Blood Cells % 0.0/100WBC Neutrophils # (Manual) 9.810^3/ul Lymphocytes # 0.410^3/ul Monocytes # 1.110^3/ul Eosinophils # 0.010^3/ul Basophils # 0.010^3/ul Nucleated Red Blood Cells # 0.010^3/ul Prothrombin Time 13.3Sec Prothrombin Time Ratio 1.0 INR International Normalized Ratio 1.01 Activated Partial Thromboplast Time 28.6Sec Sodium Level 139mmol/L Potassium Level 2.7mmol/L Chloride Level 93mmol/L Carbon Dioxide Level 33mmol/L Anion Gap 16 Blood Urea Nitrogen 19mg/dl Creatinine 5.51mg/dl Glucose Level 144mg/dl Lactic Acid Level 1.0mmol/L Calcium Level 9.0mg/dl Total Bilirubin 0.1mg/dl Direct Bilirubin 0.10mg/dl Indirect Bilirubin 0.0mg/dl Aspartate Amino Transf (AST/SGOT) 40IU/L Alanine Aminotransferase (ALT/SGPT) 22IU/L Alkaline Phosphatase 87IU/L Troponin I 0.143ng/ml Total Protein 6.7g/dl Albumin 3.9g/dl Globulin 2.80g/dl Albumin/Globulin Ratio 1.39 Current Medications Medications (Trade) Dose Ordered Sig/Leanne Route PRN Reason Start Time Stop Time Status Last Admin Dose Admin Sodium Chloride (NS) 500 ml @ 500 mls/hr Q1H STAT IV 12/29/16 00:07 12/29/16 01:06 DC 12/29/16 00:07 Morphine Sulfate (morphine) 2 mg ONCE STAT IV 12/29/16 00:07 12/29/16 00:08 DC 12/29/16 01:01 Ondansetron HCl (Zofran Inj) 4 mg ONCE STAT IV 12/29/16 00:07 12/29/16 00:08 DC 12/29/16 01:01 Hydralazine HCl 20 mg 20 mg ONCE ONCE IV 12/29/16 01:30 12/29/16 01:31 DC 12/29/16 01:27 Potassium Chloride 250 ml @ 62.5 mls/hr ONCE ONCE IVPB 12/29/16 03:00 12/29/16 06:59 Metronidazole 100 ml @ 100 mls/hr ONCE STAT IVPB 12/29/16 02:56 12/29/16 03:55 Piperacillin Sod/ Tazobactam Sod (Zosyn 3.375gm/ 100 ml (Pmx)) 100 ml @ 200 mls/hr ONCE STAT IVPB 12/29/16 02:56 12/29/16 03:25 DC 12/29/16 03:15 Procedures/MDM EKG: Rate/Rhythm: [Normal Sinus Rhythm] QRS, ST, T-waves: [No changes consistent w/ acute ischemia] Impression: [No evidence of ischemia or arrhythmia] Chest X-ray 1V Interpreted by me: Soft Tissue: No acute abnormalities Bones: No acute abnormalities Mediastinum/Cardiac Silhouette/Lungs: [No acute abnormalities] Critical Care: Time: 45 minutes Treatments/Evaluations: Close monitoring and treatment of unstable vital signs, cardiorespiratory, and neurologic status, while maintaining tight balance of fluid, respiratory, and cardiac interventions. Patient's symptoms are concerning for cardiac cause will require inpatient workup and continuous monitoring. Further w/u for ischemia, arrhythmia, PE or dissection will be deferred to the inpatient team. Patient has elevated troponin along with severe hypokalemia and evidence of pancolitis on CT. Patient started on intravenous antibiotics. Potassium repleted Accepting Care Team: Current data and ongoing care discussed. Time: 3:30 AM primary Provider: Dr. Mcdaniel consulting: [XOXOXO] Outstanding Data: none Departure Diagnosis: Primary Impression: Colitis Additional Impression: NSTEMI (non-ST elevated myocardial infarction) Condition: Serious JEANE LYLES Dec 29, 2016 03:28
[2016-12-29] MEDS ORDERED: LABETALOL HCL 20MG INJ IV ONE (06:30)
[2016-12-29] MEDS ORDERED: traMADol 50 MG TAB PO PRN (08:30)
[2016-12-29] MEDS ORDERED: NACL 0.9% 3 ML SYG IV SCH (08:30)
[2016-12-29] MEDS: DEXTROSE 5%-0.45% NACL 1,000 ML IV SCH (08:30)
[2016-12-29] MEDS ORDERED: ONDANSETRON 4 MG INJ IV PRN (08:30)
[2016-12-29] MEDS: ASPIRIN 81 MG TAB PO SCH (09:00)
[2016-12-29] MEDS ORDERED: NIFEdipine (XL) 30 MG TAB PO SCH (09:00)
[2016-12-29] MEDS ORDERED: PROMETHAZINE 25 MG TAB PO PRN (09:00)
[2016-12-29] MEDS ORDERED: ONDANSETRON 4 MG TAB PO PRN (09:00)
--- NOTE | 2016-12-29 10:40 | QN ---
Documentation Comment Observation Note: Time: 4 hours Family Hx: Negative for diabetes Evaluation: Multiple exams showed improving symptoms and no evidence of clinical decompensation. JENNIFER DELEON MD Dec 29, 2016 10:40
[2016-12-29 10:57] LABS: CK-MB 0.62 ng/ml (0.0-2.4)
[2016-12-29 11:01] LABS: TROPONIN-I 0.142 ng/ml (0.00-0.12)
[2016-12-29] MEDS: FOLIC ACID 1 MG TAB PO SCH (11:18)
[2016-12-29] MEDS: CLONIDINE 0.1 MG/24 HR PATCH TRANSDERM SCH (11:18)
[2016-12-29] MEDS: GABAPENTIN 100 MG CAP PO SCH ×3 (11:18→20:54)
[2016-12-29] MEDS: ISOSORBIDE DINITRATE 10 MG TAB PO SCH ×3 (11:19→21:00)
[2016-12-29] MEDS: TOPIRAMATE 25 MG TAB PO SCH (11:19)
[2016-12-29] MEDS: NIFEdipine (XL) 60 MG TAB PO SCH (11:19)
--- NOTE | 2016-12-29 11:52 | CONS ---
Date/Time of Note Date/Time of Note DATE: 12/29/16 TIME: 11:45 Assessment/Plan Assessment/Plan Chief Complaint/Hosp Course Impression: 1. anemia 2. elevated troponin 3. intractable nausea and vomiting 4. generalized abdominal pain 5. CT scan showing colitis: ddx ischemic > infectious > inflammatory 6. diarrhea Recommendations: 1. cardiology eval and clearance for any possible endoscopic procedures given elevated troponin 2. stool studies both infectious and for occult blood 3. increase protonix to bid dosing for possible gastritis, esophagitis, etc... 4. IVF 5. Dr. Medley to resume care of this patient tomorrow Problems: Consultation Date/Type/Reason Admit Date/Time Date of Consultation: Dec 29, 2016 Type of Consultation: GI Reason for Consultation intractable nausea, vomiting. Diarrhea Hx of Present Illness 72 female who is admitted for intractable nausea and vomiting for 3 days nonbilious nonbloody and nonprojectile initially. Per family member, later the emesis has blood. This is associated with generalized abdominal pain started today. Patient is unable to keep any bowel medications. No fevers no chills. Abdominal pain mild to moderate intensity diffuse in location with no exacerbating or alleviating factors. No sick contacts. No changes in bowel habits. No melena, hematochezia, brbpr. All point ROS administered, pertinent positives and negatives in HPI otherwise negative. Past Medical History Medical History: congestive heart failure, coronary artery disease, diabetes, hypertension, renal disease Past Surgical History Past Surgical Hx: endoscopy Family History Significant Family History: no pertinent family hx Social History Alcohol Use: none Smoking Status: Never smoker Drug Use: none Exam/Review of Systems Vital Signs Vitals Vital Signs Date Time Temp Pulse Resp B/P Pulse Ox O2 Delivery O2 Flow Rate FiO2 12/29/16 06:09 98.3 84 18 205/76 100 Nasal Cannula 2.0 Exam Constitutional: alert, oriented, well developed Psych: nl mood/affect, no complaints Head: atraumatic, normocephalic Eyes: EOMI, nl conjunctiva, nl lids, nl sclera ENMT: mucosa pink and moist, nl external ears & nose, nl lips & teeth, nl nasal mucosa & septum Neck: non-tender, supple Respiratory: clear to auscultation, normal air movement Cardiovascular: nl pulses, regular rate and rhythm Gastrointestinal: bowel sounds, non-tender, soft Musculoskeletal: nl extremities to inspection Neurological: nl mental status, nl speech, nl strength Results Result Diagram: 12/29/16 01312/29/16 013 Results 24 hrs Laboratory Tests Test 12/29/16 01:35 12/29/16 05:33 12/29/16 09:50 White Blood Count 11.4 #H Red Blood Count 2.68 L Hemoglobin 8.7 L Hematocrit 25.4 L Mean Corpuscular Volume 94.8 Mean Corpuscular Hemoglobin 32.5 Mean Corpuscular Hemoglobin Concent 34.3 Red Cell Distribution Width 14.6 H Platelet Count 298 # Mean Platelet Volume 9.5 Neutrophils % 85.9 H Lymphocytes % 3.3 L Monocytes % 9.9 Eosinophils % 0.2 Basophils % 0.3 Nucleated Red Blood Cells % 0.0 Neutrophils # (Manual) 9.8 H Lymphocytes # 0.4 L Monocytes # 1.1 H Eosinophils # 0.0 Basophils # 0.0 Nucleated Red Blood Cells # 0.0 Prothrombin Time 13.3 Prothrombin Time Ratio 1.0 INR International Normalized Ratio 1.01 Activated Partial Thromboplast Time 28.6 Sodium Level 139 Potassium Level 2.7 *L Chloride Level 93 L Carbon Dioxide Level 33 H Anion Gap 16 Blood Urea Nitrogen 19 Creatinine 5.51 H Glucose Level 144 Lactic Acid Level 1.0 0.7 0.8 Calcium Level 9.0 Total Bilirubin 0.1 L Direct Bilirubin 0.10 Indirect Bilirubin 0.0 Aspartate Amino Transf (AST/SGOT) 40 Alanine Aminotransferase (ALT/SGPT) 22 Alkaline Phosphatase 87 Troponin I 0.143 *H 0.142 *H Total Protein 6.7 Albumin 3.9 Globulin 2.80 Albumin/Globulin Ratio 1.39 Creatine Kinase 71 Creatine Kinase Index 0.9 Creatinine Kinase MB (Mass) 0.62 Medications Medications Current Medications Aspirin (Aspirin) 81 mg DAILY PO ; Start 12/29/16 at 09:00 Atorvastatin Calcium (Lipitor) 40 mg HS PO ; Start 12/29/16 at 21:00 Latanoprost (Xalatan) 1 drop HS BOTH EYES ; Start 12/29/16 at 21:00 Clonidine HCl (Catapres-Tts 1 Patch) 1 patch Q7D TRANSDERM Last administered on 12/29/16t 11:18; Admin Dose 1 PATCH; Start 12/29/16 at 10:00 Folic Acid (Folic Acid) 1 mg DAILY PO Last administered on 12/29/16 11:18; Admin Dose 1 MG; Start 12/29/16 at 09:00 Gabapentin (Neurontin) 100 mg TID PO Last administered on 12/29/16 11:18; Admin Dose 100 MG; Start 12/29/16 at 09:00 Hydralazine HCl (Apresoline) 100 mg Q8 PO ; Start 12/29/16 at 14:00 Isosorbide Dinitrate (Isordil) 10 mg TID PO Last administered on 12/29/16 11:19 ; Admin Dose 10 MG; Start 12/29/16 at 09:00 Nifedipine (Procardia Xl) 60 mg DAILY PO Last administered on 12/29/16 11:19; Admin Dose 60 MG; Start 12/29/16 at 09:00 Ondansetron HCl (Zofran Tab) 4 mg Q6H PRN PO NAUSEA AND/OR VOMITING; Start 12/29 at 09:00 Promethazine HCl (Phenergan) 25 mg Q6H PRN PO VOMITTING; Start 12/29/16 at 09:00 Topiramate (Topamax) 25 mg DAILY PO Last administered on 12/29/16 11:19; Admin Dose 25 MG; Start 12/29/16 at 09:00 Tramadol HCl 50 mg 50 mg BID PRN PO PAIN; Start 12/29/16 at 08:30 Dextrose/Sodium Chloride (D5-1/2ns) 1,000 ml @ 40 mls/hr Q24H IV ; Start at 08:30 Ondansetron HCl (Zofran Inj) 4 mg Q6H PRN IV NAUSEA AND/OR VOMITING; Start 12/29 at 08:30 Acetaminophen (Tylenol Tab) 650 mg Q6H PRN PO PAIN LEVEL 1-3 OR FEVER; Start at 08:30 Pantoprazole (Protonix Iv) 40 mg DAILY@06 IV ; Start 12/30/16 at 06:00 BRIAN GLASGOW MD Dec 29, 2016 11:52
[2016-12-29 11:53] VITALS: TEMP 98.3
[2016-12-29 13:40] VITALS: BP 196/88; PULSE 84; PULSE 86; RESP 20
[2016-12-29] MEDS ORDERED: SOD CHLORIDE 0.9% 1,000 ML IV PRN (13:45)
[2016-12-29] MEDS ORDERED: METOCLOPRAMIDE 10 MG INJ IV PRN (14:00)
[2016-12-29] MEDS ORDERED: ALBUMIN HUMAN 25% 100 ML IV PRN (14:00)
[2016-12-29] MEDS ORDERED: ALBUMIN HUMAN 25% 50 ML IV PRN (14:00)
[2016-12-29] MEDS ORDERED: METOCLOPRAMIDE 10 MG INJ IV ONE (14:00)
[2016-12-29] MEDS ORDERED: PIPER-TAZO 3.375 GM IV (PMX) 100 ML IVPB SCH (14:00)
[2016-12-29] MEDS: ACCU-CHEK XX SCH ×2 (14:14→20:05)
[2016-12-29] MEDS: hydrALAzine 20 MG INJ IV PRN (14:25)
[2016-12-29] MEDS ORDERED: GLUCOSE GEL 15 GRAM TUBE PO PRN ×2 (14:30)
[2016-12-29] MEDS ORDERED: DEXTROSE 50% 50 ML SYRINGE IV PRN ×2 (14:30)
[2016-12-29] MEDS ORDERED: GLUCAGON 1 MG INJ IM PRN (14:30)
[2016-12-29] MEDS ORDERED: GLUCOSE GEL 15 GRAM TUBE BUCCAL PRN (14:30)
[2016-12-29] MEDS: PIPER-TAZO 2.25 GM (PMX) 50 ML IVPB SCH ×2 (15:00→20:54)
[2016-12-29 15:18] VITALS: Ht 154.9 cm; Wt 60.2 kg
[2016-12-29] MEDS ORDERED: morphine 2 MG INJ IV PRN (16:00)
--- NOTE | 2016-12-29 16:07 | HP ---
DATE OF ADMISSION: 12/29/2016 REASON FOR ADMISSION: Abdominal pain and nausea/vomiting. HISTORY OF PRESENT ILLNESS: This is a 71-year-old woman with a past medical history of end-stage renal disease on hemodialysis for 4 years, cardiomyopathy with mildly depressed left EF on last echocardiogram in May with EF of 45-50 percent, hypertension, diabetes, severe constipation, osteoporosis, who came to the emergency department after being brought by the daughter for nausea, vomiting, and epigastric pain for the last 3- 4 days. According to the daughter, the patient had been having nausea every time she gets her dialysis. This was getting worse for the last 2 weeks. She used to take p.o. Zofran, but she used to feel better. However, she noticed for the last 3-4 days, the patient has been vomiting a lot. She was also having some epigastric pain. She would take p.o. Zofran, but it would not help. The patient was severely constipated, and her daughter gave her some suppository, and after that, according to the daughter, had some black-colored stools. According to the daughter, the patient also had some blood in the vomitus. Patient was also having some intermittent fevers and chills. The patient currently denies any chest pain, but has some shortness of breath and some cough. The patient was just recently admitted from 12/05/2016 to 12/22/2016 because of the chest pain. HOSPITAL COURSE: On admission, vital signs were initially: Blood pressure was 203/74, currently is 137/100. The patient was afebrile. Labs showed potassium was 2.7, creatinine 5.51. Troponin was 0.142/0.143. The patient was given IV KCl, Flagyl, Zosyn, hydralazine, and some morphine sulfate and was admitted for further management. The patient also had a CT of the abdomen and pelvis that showed pancolitis. The patient also had a chest x-ray that showed mild pulmonary vascular congestion. PAST MEDICAL HISTORY: 1. Diabetes. 2. Hypertension. 3. End-stage renal disease on hemodialysis Thursday, Thursday, Thursday. 4. Constipation. 5. Osteoporosis. 6. Abdominal pain. 7. Chronic nausea. ALLERGIES: NONE. PAST SURGICAL HISTORY: The patient has a right upper extremity fistula placement. SOCIAL HISTORY: Denies any history of smoking, alcohol, and drug use. Lives with her daughter. FAMILY HISTORY: Noncontributory. REVIEW OF SYSTEMS: GENERAL: The patient complains of generalized body aches, muscle aches. HEENT: The patient also complained of headaches. GASTROINTESTINAL: The patient complained of nausea, vomiting, and 3-4 bowel movements for the last 3-4 days, unable to keep anything p.o. down. Also complained of some melena. RESPIRATORY: Also complained of some cough and some shortness of breath. GENITOURINARY: She makes very little urine. NEUROLOGIC: Denies any focal neurological deficits. SKIN: Denied any rash. PHYSICAL EXAMINATION: VITAL SIGNS: Blood pressure currently is 137/100; afebrile; pulse is 88; respirations 18. GENERAL: Patient is awake, alert, oriented x4, appears to be in mild distress secondary to abdominal pain. HEENT: Pupils equal, round, reactive to light. NECK: Supple. No JVD. HEART: Regular rate, rhythm. LUNGS: A few decreased breath sounds bilaterally. ABDOMEN: Soft is soft; however, tenderness present diffusely in the lower quadrants. Positive bowel sounds. No peritoneal signs. EXTREMITIES: No clubbing, cyanosis, or edema. The patient has right upper extremity fistula with good bruit and thrill. DIAGNOSTIC DATA: Significant for potassium of 2.7, BUN of 19, creatinine 5.51, calcium 9.1, troponin 0.142/0.143. White count 11.4, hemoglobin 8.7, platelet count 298,000. INR is 1.0. Abdominal CT shows colitis in the sigmoid colon compatible with pancolitis. Pelvic organs are normal. The chest x-ray shows mild pulmonary vascular congestion. EKG, sinus tachycardia with nonspecific ST- and T-wave changes. ASSESSMENT: This is a 71-year-old woman presenting with: 1. Abdominal pain, nausea, vomiting, diarrhea with some black stools and also some hematemesis. The patient has peritoneal signs, however, is diffusely tender on exam. CT of the abdomen and pelvis positive for pancolitis, rule out infectious versus inflammatory colitis. 2. Severe hypokalemia secondary to number 1. 3. Elevated troponin; however, the patient denies any chest pain. The nonspecific ST- and T-wave changes. 4. Anemia with possible melena. 5. End-stage renal disease, on hemodialysis Thursday, Thursday, Thursday. 6. Diabetes. 7. Hypertension, uncontrolled but currently better. 8. Chronic abdominal pain. 9. History of chronic constipation. PLAN: At this period of time, patient is admitted to ERIK unit. Will keep the patient n.p.o., give the patient very gentle IV fluids. GI consultation with Dr. Medley has already been requested. Will send all stool studies for both infectious and occult blood. We will increase the Protonix to b.i.d. For troponin, we will get serial EKG and serial troponins. Echocardiogram will be ordered. Will call cardiology consultation with Dr. Salcedo. Will give Zofran and Reglan for nausea/vomiting. The patient's condition is guarded. The rest of the treatment will depend on the patient's hospitalization course. Dictated By: MD SHILPA Tobias/josé manuel/mraiola /Document#: [id number]
[2016-12-29 16:15] VITALS: PULSE 80
[2016-12-29 16:25] LABS: CREATININE 6.41 mg/dl (0.44-1.00); POTASSIUM 3.1 mmol/L (3.5-5.1)
[2016-12-29 16:36] LABS: CK-MB 0.88 ng/ml (0.0-2.4); TROPONIN-I 0.133 ng/ml (0.00-0.12)
[2016-12-29 17:04] VITALS: BP 154/67; RESP 20
[2016-12-29] MEDS: PANTOPRAZOLE 40 MG INJ IV SCH (17:28)
[2016-12-29 19:52] VITALS: BP 126/70; RESP 20
[2016-12-29 20:25] VITALS: PULSE 85
[2016-12-29] MEDS: ATORVASTATIN 40 MG TAB PO SCH (20:54)
[2016-12-29] MEDS: LATANOPROST 0.005% 2.5 ML OPH BOTH EYES SCH (21:12)
[2016-12-30] VITALS (20 sets, daily range): BP systolic 102–141; BP diastolic 48–64; PULSE 67–78; RESP 18–20
[2016-12-30] MEDS ORDERED: ACCU-CHEK XX SCH (02:00)
[2016-12-30] MEDS: PANTOPRAZOLE 40 MG INJ IV SCH ×2 (05:53→17:57)
[2016-12-30] MEDS: PIPER-TAZO 2.25 GM (PMX) 50 ML IVPB SCH ×2 (05:53→13:57)
[2016-12-30] MEDS ORDERED: PANTOPRAZOLE 40 MG INJ IV SCH (06:00)
--- NOTE | 2016-12-30 07:22 | RADRPT ---
Echocardiogram Report Patient Name: KAVON PAL Gender: Female Date: 1945 Study Date: 29-Dec-2016 Audio Narrator: [facility] Location: [id number] Ref. Physician: SANDRA VARGAS Quality: Adequate Procedures: Transthoracic echocardiogram with complete 2D, M-Mode, and doppler examination. Indications: Elevated troponin. 2D/M Mode Doppler Measurement Value Normal Ranges Measurement Value Normal Ranges LVIDd 2D 5.5 3.5 - 5.6 cm AV Peak Murali 2.3 m/sec LVIDs 2D 3.5 2.1 - 4.1 cm AV Peak PG 22.0 mmHg FS 2D 35.9 % LVOT Peak Murali 1.5 m/sec LVPWd 2D 1.0 0.6 - 1.1 cm LVOT Peak PG 10.0 mmHg IVSd 2D 1.0 0.6 - 1.1 cm MV E Peak Murali 1.8 m/sec IVS/LVPW 2D 1.1 MV A Peak Murali 1.4 m/sec AoR Diam 2D 2.8 2.0 - 3.7 cm MV E/A 1.3 LA/Ao 2D 1 0 - 1 MV Decel Time 120 msec EDV 2D 163.0 cm3 MV E/A 1.3 ESV 2D 42.9 cm3 TR Peak Murali 3.4 m/sec LA Dimen 2D 3.8 2.3 - 4.0 cm TR Peak PG 46.0 mmHg RVSP 49.0 mmHg Findings Left Ventricle: Normal left ventricular systolic function. Normal left ventricular cavity size. Mild concentric left ventricular hypertrophy. Ejection fraction is visually estimated at 55 %. Right Ventricle: Normal right ventricular size. Normal right ventricular systolic function. Left Atrium: There is mild enlargement of left atrium. Right Atrium: The right atrium is normal in size. Mitral Valve: Mitral valve leaflets appear moderately thickened. Moderate mitral annular calcification. Moderate to severe mitral valve regurgitation. Aortic Valve: Aortic cusps appear mildly calcified. Trace to mild aortic valve regurgitation. Tricuspid Valve: Normal appearance of the tricuspid valve. Estimated peak PA systolic pressure 49 mmHg. There is mild tricuspid regurgitation. Pulmonic Valve: Pulmonic valve not well visualized. Pericardium: Small pericardial effusion. Aorta: Normal aortic root. IVC: Normal size and normal respiratory collapse consistent with normal right atrial pressure. Conclusions 1.Normal left ventricular systolic function. Normal left ventricular cavity size. Mild concentric left ventricular hypertrophy. Ejection fraction is visually estimated at 55 %. 2.There is mild enlargement of left atrium. 3.Mitral valve leaflets appear moderately thickened. Moderate mitral annular calcification. Moderate to severe mitral valve regurgitation. 4.Aortic cusps appear mildly calcified. Trace to mild aortic valve regurgitation. 5.Normal appearance of the tricuspid valve. Estimated peak PA systolic pressure 49 mmHg. There is mild tricuspid regurgitation. 6.Small pericardial effusion. Electronically Signed By: Junior Cedillo 30-Dec-2016 07:21:37 -0700 Patient Name: KAVON PAL Study Date: 29-Dec-2016 [id number]
[2016-12-30 07:42] LABS: BASOPHILS % 0.7 % (0.0-2.0); EOSINOPHILS # 0.3 10^3/ul (0.0-0.5); EOSINOPHILS % 4.9 % (0.0-7.0); HEMATOCRIT 23.3 % (37.0-47.0); HEMOGLOBIN 7.7 g/dl (12.0-16.0); LYMPHOCYTES # 0.9 10^3/ul (0.8-2.9); MEAN CORPUSCULAR HEMOGLOBIN 32.5 pg (29.0-33.0); MEAN CORPUSCULAR VOLUME 98.3 fl (82.0-101.0); MEAN PLATELET VOLUME 9.7 fl (7.4-10.4); MONOCYTE # 0.8 10^3/ul (0.3-0.9); MONOCYTES % 13.9 % (0.0-11.0); NEUTROPHILS % 65.1 % (39.0-77.0); PLATELET COUNT 253 10^3/UL (140-415); RED BLOOD COUNT 2.37 10^6/ul (4.20-5.40); RED CELL DISTRIBUTION WIDTH 15.1 % (11.5-14.5); WHITE BLOOD COUNT 5.7 10^3/ul (4.8-10.8)
[2016-12-30 08:10] LABS: ALBUMIN 3.3 g/dl (3.3-4.9); ALBUMIN/GLOBULIN RATIO 1.37; CREATININE 7.07 mg/dl (0.44-1.00); TOTAL PROTEIN 5.7 g/dl (6.1-8.1)
[2016-12-30 08:16] LABS: MAGNESIUM 2.4 mg/dl (1.7-2.5); PHOSPHORUS 4.8 mg/dl (2.5-4.9)
[2016-12-30] MEDS: ASPIRIN 81 MG TAB PO SCH (09:23)
[2016-12-30] MEDS: TOPIRAMATE 25 MG TAB PO SCH (09:23)
[2016-12-30] MEDS: FOLIC ACID 1 MG TAB PO SCH (09:23)
[2016-12-30] MEDS: DEXTROSE 5%-0.45% NACL 1,000 ML IV SCH (09:24)
[2016-12-30] MEDS: GABAPENTIN 100 MG CAP PO SCH ×3 (09:24→20:24)
[2016-12-30] MEDS: ISOSORBIDE DINITRATE 10 MG TAB PO SCH ×3 (09:24→20:25)
[2016-12-30] MEDS: ACCU-CHEK XX SCH ×3 (09:24→20:05)
[2016-12-30] MEDS: NIFEdipine (XL) 60 MG TAB PO SCH (09:24)
--- NOTE | 2016-12-30 10:12 | CONS ---
Date/Time of Note Date/Time of Note DATE: 12/30/16 TIME: 10:10 Assessment/Plan Assessment/Plan Additional Assessment/Plan Chief Complaint/Hosp Course Impression: 1. anemia 2. elevated troponin 3. intractable nausea and vomiting 4. generalized abdominal pain 5. CT scan showing colitis: ddx ischemic > infectious > inflammatory 6. diarrhea secondary to C. difficile colitis Recommendations: 1. cardiology eval and clearance for any possible endoscopic procedures given elevated troponin Vancomycin 125 mg p.o. every 6 hours EGD for her chronic nausea for months once cleared by collection teller Advance diet Consultation Date/Type/Reason Admit Date/Time Dec 29, 2016 at 03:15 Initial Consult Date 12/29/16 Type of Consultation: GI 24 HR Interval Summary Free Text/Dictation Patient is hungry No abdominal pain no vomiting She has chronic nausea Exam/Review of Systems Vital Signs Vitals Vital Signs Date Time Temp Pulse Resp B/P Pulse Ox O2 Delivery O2 Flow Rate FiO2 12/30/16 07:59 97.9 76 20 141/64 96 12/29/16 21:00 Nasal Cannula 2.0 Intake and Output 12/29/16 12/29/16 12/30/16 15:00 23:00 07:00 Intake Total 50 ml 930 ml Balance 50 ml 930 ml Exam Constitutional: alert, oriented, well developed Psych: nl mood/affect, no complaints Head: atraumatic, normocephalic Eyes: EOMI, PERRL, nl conjunctiva, nl lids, nl sclera ENMT: nl external ears & nose, nl lips & teeth, nl nasal mucosa & septum Neck: non-tender, supple Respiratory: clear to auscultation, normal air movement Cardiovascular: nl pulses, regular rate and rhythm Gastrointestinal: nl liver, spleen, non-tender, soft Musculoskeletal: nl extremities to inspection, nl gait and stance Extremities: normal pulses Neurological: BRASS MOLDER II-XII intact, nl mental status, nl speech, nl strength Skin: nl turgor, No rash or lesions Lymph: nl lymph nodes Results Result Diagram: 12/30/16 0649 12/30/16 0649 Results 24 hrs Laboratory Tests Test 12/29/16 14:30 12/29/16 15:08 12/29/16 20:53 12/30/16 06:49 Bedside Glucose 139 108 Sodium Level 143 139 Potassium Level 3.1 L 3.0 L Chloride Level 100 98 Carbon Dioxide Level 31 31 Anion Gap 15 13 Blood Urea Nitrogen 19 23 H Creatinine 6.41 H 7.07 H Glucose Level 123 110 Calcium Level 8.0 L 8.0 L Creatine Kinase 83 Creatine Kinase Index 1.1 Creatinine Kinase MB (Mass) 0.88 Troponin I 0.133 *H White Blood Count 5.7 # Red Blood Count 2.37 L Hemoglobin 7.7 L Hematocrit 23.3 L Mean Corpuscular Volume 98.3 Mean Corpuscular Hemoglobin 32.5 Mean Corpuscular Hemoglobin Concent 33.0 Red Cell Distribution Width 15.1 H Platelet Count 253 Mean Platelet Volume 9.7 Neutrophils % 65.1 Lymphocytes % 15.0 Monocytes % 13.9 H Eosinophils % 4.9 Basophils % 0.7 Nucleated Red Blood Cells % 0.0 Neutrophils # (Manual) 3.7 Lymphocytes # 0.9 Monocytes # 0.8 Eosinophils # 0.3 Basophils # 0.0 Nucleated Red Blood Cells # 0.0 Phosphorus Level 4.8 Magnesium Level 2.4 Total Bilirubin 0.0 L Direct Bilirubin 0.00 Indirect Bilirubin 0.0 Aspartate Amino Transf (AST/SGOT) 26 Alanine Aminotransferase (ALT/SGPT) 16 Alkaline Phosphatase 64 Total Protein 5.7 #L Albumin 3.3 Globulin 2.40 Albumin/Globulin Ratio 1.37 Test 12/30/16 08:07 Bedside Glucose 122 Medications Medications Current Medications Aspirin (Aspirin) 81 mg DAILY PO Last administered on 12/30/16 09:23; Admin Dose 81 MG; Start 12/29/16 at 09:00 Atorvastatin Calcium (Lipitor) 40 mg HS PO Last administered on 12/29/16 20:54 ; Admin Dose 40 MG; Start 12/29/16 at 21:00 Latanoprost (Xalatan) 1 drop HS BOTH EYES Last administered on 12/29/16 21:12; Admin Dose 1 DROP; Start 12/29/16 at 21:00 Clonidine HCl (Catapres-Tts 1 Patch) 1 patch Q7D TRANSDERM Last administered on 12/29/16 11:18; Admin Dose 1 PATCH; Start 12/29/16 at 10:00 Folic Acid (Folic Acid) 1 mg DAILY PO Last administered on 12/30/16 09:23; Admin Dose 1 MG; Start 12/29/16 at 09:00 Gabapentin (Neurontin) 100 mg TID PO Last administered on 12/30/16 09:24; Admin Dose 100 MG; Start 12/29/16 at 09:00 Hydralazine HCl (Apresoline) 100 mg Q8 PO Last administered on 12/30/16 05:57; Admin Dose 100 MG; Start 12/29/16 at 14:00 Isosorbide Dinitrate (Isordil) 10 mg TID PO Last administered on 12/30/16 09:24 ; Admin Dose 10 MG; Start 12/29/16 at 09:00 Nifedipine (Procardia Xl) 60 mg DAILY PO Last administered on 12/30/16 09:24; Admin Dose 60 MG; Start 12/29/16 at 09:00 Promethazine HCl (Phenergan) 25 mg Q6H PRN PO VOMITTING; Start 12/29/16 at 09:00 Topiramate 25 mg 25 mg DAILY PO Last administered on 12/30/16 09:23; Admin Dose 25 MG; Start 12/29/16 at 09:00 Dextrose/Sodium Chloride (D5-1/2ns) 1,000 ml @ 40 mls/hr Q24H IV Last administered on 12/30/16 09:24; Admin Dose 40 MLS/HR; Start 12/29/16 at 08:30 Ondansetron HCl (Zofran Inj) 4 mg Q6H PRN IV NAUSEA AND/OR VOMITING; Start 12/29 at 08:30 Acetaminophen (Tylenol Tab) 650 mg Q6H PRN PO PAIN LEVEL 1-3 OR FEVER; Start at 08:30 Metoclopramide HCl (Reglan) 10 mg Q6 PRN IV nausea/vommiting; Start 12/29/16 at 14:00 Hydralazine HCl (Apresoline) 10 mg Q6 PRN IV sbp>170 Last administered on 14:25; Admin Dose 10 MG; Start 12/29/16 at 14:00 Diagnostic Test (Pha) 1 ea 1 ea 02 XX ; Start 12/30/16 at 02:00 Sodium Chloride (NS) 1,000 ml @ 0 mls/hr Q0M PRN IV TO KEEP SBP ABOVE 90; Start 12/29/16 at 13:45 Miscellaneous Information 1 ea NOTE XX ; Start 12/29/16 at 14:30 Glucose (Glutose) 15 gm Q15M PRN PO DECREASED GLUCOSE; Start 12/29/16 at 14:30 Glucose (Glutose) 22.5 gm Q15M PRN PO DECREASED GLUCOSE; Start 12/29/16 at 14:30 Dextrose (D50w Syringe) 25 ml Q15M PRN IV DECREASED GLUCOSE; Start 12/29/16 at 14:30 Dextrose (D50w Syringe) 50 ml Q15M PRN IV DECREASED GLUCOSE; Start 12/29/16 at 14:30 Glucagon (Glucagen) 1 mg Q15M PRN IM DECREASED GLUCOSE; Start 12/29/16 at 14:30 Glucose 15 gm 15 gm Q15M PRN BUCCAL DECREASED GLUCOSE; Start 12/29/16 at 14:30 Piperacillin Sod/ Tazobactam Sod (Zosyn 2.25gm/ 50ml (Pmx)) 50 ml @ 100 mls/hr Q8 IVPB Last administered on 12/30/16t 05:53; Admin Dose 100 MLS/HR; Start at 15:00 Morphine Sulfate (morphine) 2 mg Q4H PRN IV PAIN; Start 12/29/16 at 16:00 STU ROCKWELL MD Dec 30, 2016 10:12
[2016-12-30] MEDS: metroNIDAZOLE 500 MG/NS (PMX) 100 ML IVPB SCH ×2 (13:57→20:25)
[2016-12-30] MEDS: VANCOMYCIN HCL 250 MG/5ML POSYG PO SCH ×2 (13:57→17:58)
[2016-12-30] MEDS: INSULIN ASPART [NOVOLOG] 3 ML PEN SC SCH ×2 (18:18→20:36)
--- NOTE | 2016-12-30 19:08 | PN ---
Date/Time of Note Date/Time of Note DATE: 12/30/16 TIME: 19:06 Assessment/Plan VTE Prophylaxis VTE Prophylaxis Intervention: other Lines/Catheters IV Catheter Type (from Nrs): Peripheral IV Urinary Cath still in place: No Assessment/Plan Chief Complaint/Hosp Course 1. Abdominal pain, 2. Severe hypokalemia secondary to number 1. 3. Elevated troponin; however, the patient denies any chest pain. The nonspecific ST- and T-wave changes. 4. Anemia with possible melena. 5. End-stage renal disease, on hemodialysis Thursday, Thursday, Thursday. 6. Diabetes. 7. Hypertension, 8. Chronic abdominal pain. 9. History of chronic constipation. 10 C DIFF PLAN KCL FLAGYL Problems: Subjective 24 Hr Interval Summary Respiratory: no complaints Gastrointestinal: No diarrhea Exam/Review of Systems Vital Signs Vitals Vital Signs Date Time Temp Pulse Resp B/P Pulse Ox O2 Delivery O2 Flow Rate FiO2 12/30/16 16:25 98.6 73 20 114/56 99 12/30/16 07:30 Nasal Cannula 2.0 Intake and Output 12/29/16 12/29/16 12/30/16 15:00 23:00 07:00 Intake Total 50 ml 930 ml Balance 50 ml 930 ml Exam Neck: supple Respiratory: clear to auscultation Cardiovascular: regular rate and rhythm Gastrointestinal: bowel sounds (+), soft Extremities: normal pulses, No edema Results Result Diagram: 12/30/16 0649 12/30/16 0649 Results 24 hrs Laboratory Tests Test 12/29/16 20:53 12/30/16 06:49 12/30/16 08:07 12/30/16 09:54 Bedside Glucose 108 122 White Blood Count 5.7 # Red Blood Count 2.37 L Hemoglobin 7.7 L Hematocrit 23.3 L Mean Corpuscular Volume 98.3 Mean Corpuscular Hemoglobin 32.5 Mean Corpuscular Hemoglobin Concent 33.0 Red Cell Distribution Width 15.1 H Platelet Count 253 Mean Platelet Volume 9.7 Neutrophils % 65.1 Lymphocytes % 15.0 Monocytes % 13.9 H Eosinophils % 4.9 Basophils % 0.7 Nucleated Red Blood Cells % 0.0 Neutrophils # (Manual) 3.7 Lymphocytes # 0.9 Monocytes # 0.8 Eosinophils # 0.3 Basophils # 0.0 Nucleated Red Blood Cells # 0.0 Sodium Level 139 Potassium Level 3.0 L Chloride Level 98 Carbon Dioxide Level 31 Anion Gap 13 Blood Urea Nitrogen 23 H Creatinine 7.07 H Glucose Level 110 Calcium Level 8.0 L Phosphorus Level 4.8 Magnesium Level 2.4 Total Bilirubin 0.0 L Direct Bilirubin 0.00 Indirect Bilirubin 0.0 Aspartate Amino Transf (AST/SGOT) 26 Alanine Aminotransferase (ALT/SGPT) 16 Alkaline Phosphatase 64 Total Protein 5.7 #L Albumin 3.3 Globulin 2.40 Albumin/Globulin Ratio 1.37 Troponin I 0.122 *H Test 12/30/16 17:49 Bedside Glucose 206 Medications Medications Current Medications Aspirin (Aspirin) 81 mg DAILY PO Last administered on 12/30/16 09:23; Admin Dose 81 MG; Start 12/29/16 at 09:00 Atorvastatin Calcium (Lipitor) 40 mg HS PO Last administered on 12/29/16 20:54 ; Admin Dose 40 MG; Start 12/29/16 at 21:00 Latanoprost (Xalatan) 1 drop HS BOTH EYES Last administered on 12/29/16 21:12; Admin Dose 1 DROP; Start 12/29/16 at 21:00 Clonidine HCl (Catapres-Tts 1 Patch) 1 patch Q7D TRANSDERM Last administered on 12/29/16 11:18; Admin Dose 1 PATCH; Start 12/29/16 at 10:00 Folic Acid (Folic Acid) 1 mg DAILY PO Last administered on 12/30/16 09:23; Admin Dose 1 MG; Start 12/29/16 at 09:00 Gabapentin (Neurontin) 100 mg TID PO Last administered on 12/30/16 13:57; Admin Dose 100 MG; Start 12/29/16 at 09:00 Hydralazine HCl (Apresoline) 100 mg Q8 PO Last administered on 12/30/16 05:57; Admin Dose 100 MG; Start 12/29/16 at 14:00 Isosorbide Dinitrate (Isordil) 10 mg TID PO Last administered on 12/30/16 09:24 ; Admin Dose 10 MG; Start 12/29/16 at 09:00 Nifedipine (Procardia Xl) 60 mg DAILY PO Last administered on 12/30/16 09:24; Admin Dose 60 MG; Start 12/29/16 at 09:00 Promethazine HCl (Phenergan) 25 mg Q6H PRN PO VOMITTING; Start 12/29/16 at 09:00 Topiramate 25 mg 25 mg DAILY PO Last administered on 12/30/16 09:23; Admin Dose 25 MG; Start 12/29/16 at 09:00 Dextrose/Sodium Chloride (D5-1/2ns) 1,000 ml @ 40 mls/hr Q24H IV Last administered on 12/30/16 09:24; Admin Dose 40 MLS/HR; Start 12/29/16 at 08:30 Ondansetron HCl (Zofran Inj) 4 mg Q6H PRN IV NAUSEA AND/OR VOMITING; Start 12/29 at 08:30 Acetaminophen (Tylenol Tab) 650 mg Q6H PRN PO PAIN LEVEL 1-3 OR FEVER; Start at 08:30 Metoclopramide HCl (Reglan) 10 mg Q6 PRN IV nausea/vommiting; Start 12/29/16 at 14:00 Hydralazine HCl 10 mg 10 mg Q6 PRN IV sbp>170 Last administered on 12/29/16 14: 25; Admin Dose 10 MG; Start 12/29/16 at 14:00 Sodium Chloride (NS) 1,000 ml @ 0 mls/hr Q0M PRN IV TO KEEP SBP ABOVE 90; Start 12/29/16 at 13:45 Miscellaneous Information 1 ea NOTE XX ; Start 12/29/16 at 14:30 Glucose (Glutose) 15 gm Q15M PRN PO DECREASED GLUCOSE; Start 12/29/16 at 14:30 Glucose (Glutose) 22.5 gm Q15M PRN PO DECREASED GLUCOSE; Start 12/29/16 at 14:30 Dextrose (D50w Syringe) 25 ml Q15M PRN IV DECREASED GLUCOSE; Start 12/29/16 at 14:30 Dextrose (D50w Syringe) 50 ml Q15M PRN IV DECREASED GLUCOSE; Start 12/29/16 at 14:30 Glucagon (Glucagen) 1 mg Q15M PRN IM DECREASED GLUCOSE; Start 12/29/16 at 14:30 Glucose 15 gm 15 gm Q15M PRN BUCCAL DECREASED GLUCOSE; Start 12/29/16 at 14:30 Piperacillin Sod/ Tazobactam Sod (Zosyn 2.25gm/ 50ml (Pmx)) 50 ml @ 100 mls/hr Q8 IVPB Last administered on 12/30/16 13:57; Admin Dose 100 MLS/HR; Start at 15:00 Morphine Sulfate (morphine) 2 mg Q4H PRN IV PAIN; Start 12/29/16 at 16:00 Vancomycin HCl 125 mg 125 mg Q6 PO Last administered on 12/30/16 17:58; Admin Dose 125 MG; Start 12/30/16 at 12:00 Metronidazole (Flagyl 500 Mg (Pmx)) 100 ml @ 100 mls/hr Q8 IVPB Last administered on 12/30/16 13:57; Admin Dose 100 MLS/HR; Start 12/30/16 at 14:00 Diagnostic Test (Pha) (Accu-Chek) 1 ea 02 XX ; Start 12/31/16 at 02:00 Potassium Chloride (Micro-K) 24 meq ONCE ONCE PO ; Start 12/30/16 at 19:30; Stop 12/30/16 at 19:31; Status MICHELLE VAUGHN MD Dec 30, 2016 19:08
[2016-12-30] MEDS ORDERED: POTASSIUM CHLORIDE (SR) 8 MEQ CAP PO ONE (19:30)
[2016-12-30] MEDS: LATANOPROST 0.005% 2.5 ML OPH BOTH EYES SCH (20:23)
[2016-12-30] MEDS: ATORVASTATIN 40 MG TAB PO SCH (20:24)
[2016-12-31] VITALS (13 sets, daily range): BP systolic 136–194; BP diastolic 59–87; PULSE 70–78; RESP 17–18
[2016-12-31] MEDS: VANCOMYCIN HCL 250 MG/5ML POSYG PO SCH ×4 (00:34→17:32)
[2016-12-31] MEDS ORDERED: ACCU-CHEK XX SCH (02:00)
[2016-12-31] MEDS: ACCU-CHEK XX SCH ×4 (02:00→20:05)
[2016-12-31] MEDS: metroNIDAZOLE 500 MG/NS (PMX) 100 ML IVPB SCH ×3 (05:05→20:57)
[2016-12-31] MEDS: PANTOPRAZOLE 40 MG INJ IV SCH ×2 (05:05→16:59)
[2016-12-31] MEDS: ACETAMINOPHEN 325 MG TAB PO PRN (07:08)
[2016-12-31] MEDS: hydrALAzine 20 MG INJ IV PRN (07:08)
[2016-12-31] MEDS: INSULIN ASPART [NOVOLOG] 3 ML PEN SC SCH ×4 (07:56→20:46)
[2016-12-31] MEDS: DEXTROSE 5%-0.45% NACL 1,000 ML IV SCH (07:58)
[2016-12-31] MEDS: ISOSORBIDE DINITRATE 10 MG TAB PO SCH ×3 (07:59→20:39)
[2016-12-31] MEDS: FOLIC ACID 1 MG TAB PO SCH (08:00)
[2016-12-31] MEDS: GABAPENTIN 100 MG CAP PO SCH ×3 (08:00→20:41)
[2016-12-31] MEDS: TOPIRAMATE 25 MG TAB PO SCH (08:00)
[2016-12-31] MEDS: NIFEdipine (XL) 60 MG TAB PO SCH (08:00)
[2016-12-31] MEDS: ASPIRIN 81 MG TAB PO SCH (08:00)
[2016-12-31 08:33] LABS: BASOPHILS % 0.2 % (0.0-2.0); EOSINOPHILS # 0.2 10^3/ul (0.0-0.5); EOSINOPHILS % 5.5 % (0.0-7.0); HEMATOCRIT 22.2 % (37.0-47.0); HEMOGLOBIN 7.1 g/dl (12.0-16.0); LYMPHOCYTES # 0.8 10^3/ul (0.8-2.9); LYMPHOCYTES % 19.5 % (15.0-51.0); MEAN CORPUSCULAR HEMOGLOBIN 31.1 pg (29.0-33.0); MEAN CORPUSCULAR VOLUME 97.4 fl (82.0-101.0); MONOCYTE # 0.7 10^3/ul (0.3-0.9); MONOCYTES % 15.7 % (0.0-11.0); NEUTROPHILS % 58.9 % (39.0-77.0); PLATELET COUNT 216 10^3/UL (140-415); RED BLOOD COUNT 2.28 10^6/ul (4.20-5.40); RED CELL DISTRIBUTION WIDTH 14.7 % (11.5-14.5); WHITE BLOOD COUNT 4.2 10^3/ul (4.8-10.8)
[2016-12-31 09:06] LABS: ALBUMIN 3.3 g/dl (3.3-4.9); ALBUMIN/GLOBULIN RATIO 1.26; CALCIUM 7.5 mg/dl (8.4-10.2); CREATININE 4.91 mg/dl (0.44-1.00); POTASSIUM 3.4 mmol/L (3.5-5.1); TOTAL PROTEIN 5.9 g/dl (6.1-8.1)
--- NOTE | 2016-12-31 16:23 | CONS ---
Date/Time of Note Date/Time of Note DATE: 12/31/16 TIME: 16:22 Assessment/Plan Assessment/Plan Additional Assessment/Plan 1. anemia 2. elevated troponin secondary to renal failure patient's 2D echo was good with good ejection fraction 3. intractable nausea and vomiting 4. generalized abdominal pain 5. CT scan showing colitis: ddx ischemic > infectious > inflammatory 6. diarrhea secondary to C. difficile colitis Recommendations: Vancomycin 125 mg p.o. every 6 hours EGD for her chronic nausea for months once cleared by cod clerk Advance diet Consultation Date/Type/Reason Admit Date/Time Dec 29, 2016 at 03:15 Initial Consult Date 12/29/16 Type of Consultation: GI 24 HR Interval Summary Free Text/Dictation Diarrhea better Constitutional: improved Exam/Review of Systems Vital Signs Vitals Vital Signs Date Time Temp Pulse Resp B/P Pulse Ox O2 Delivery O2 Flow Rate FiO2 12/31/16 16:07 70 12/31/16 15:26 98.4 18 136/59 96 12/30/16 19:52 Nasal Cannula 2.0 Intake and Output 12/30/16 12/30/16 12/31/16 15:00 23:00 07:00 Intake Total 1710 ml 1330 ml Output Total 2500 ml Balance -790 ml 1330 ml Exam Constitutional: alert, oriented, well developed Psych: nl mood/affect, no complaints Head: atraumatic, normocephalic Eyes: EOMI, PERRL, nl conjunctiva, nl lids, nl sclera ENMT: nl external ears & nose, nl lips & teeth, nl nasal mucosa & septum Neck: non-tender, supple Respiratory: clear to auscultation, normal air movement Cardiovascular: nl pulses, regular rate and rhythm Gastrointestinal: nl liver, spleen, non-tender, soft Musculoskeletal: nl extremities to inspection, nl gait and stance Extremities: normal pulses Neurological: CODING TECH II-XII intact, nl mental status, nl speech, nl strength Skin: nl turgor, No rash or lesions Lymph: nl lymph nodes Results Result Diagram: 12/31/1672712/31/16727 Results 24 hrs Laboratory Tests Test 12/30/16 17:49 12/30/16 20:19 12/31/16 07:28 12/31/16 07:55 Bedside Glucose 206 185 99 White Blood Count 4.2 #L Red Blood Count 2.28 L Hemoglobin 7.1 L Hematocrit 22.2 L Mean Corpuscular Volume 97.4 Mean Corpuscular Hemoglobin 31.1 Mean Corpuscular Hemoglobin Concent 32.0 Red Cell Distribution Width 14.7 H Platelet Count 216 Mean Platelet Volume 10.0 Neutrophils % 58.9 Lymphocytes % 19.5 Monocytes % 15.7 H Eosinophils % 5.5 Basophils % 0.2 Nucleated Red Blood Cells % 0.0 Neutrophils # (Manual) 2.5 Lymphocytes # 0.8 Monocytes # 0.7 Eosinophils # 0.2 Basophils # 0.0 Nucleated Red Blood Cells # 0.0 Sodium Level 135 Potassium Level 3.4 L Chloride Level 95 L Carbon Dioxide Level 31 Anion Gap 12 Blood Urea Nitrogen 13 # Creatinine 4.91 #H Glucose Level 90 Calcium Level 7.5 L Total Bilirubin 0.0 L Direct Bilirubin 0.00 Indirect Bilirubin 0.0 Aspartate Amino Transf (AST/SGOT) 30 Alanine Aminotransferase (ALT/SGPT) 24 Alkaline Phosphatase 58 Total Protein 5.9 L Albumin 3.3 Globulin 2.60 Albumin/Globulin Ratio 1.26 Test 12/31/16 10:20 12/31/16 11:46 Bedside Glucose 95 99 Medications Medications Current Medications Aspirin (Aspirin) 81 mg DAILY PO Last administered on 12/31/16 08:00; Admin Dose 81 MG; Start 12/29/16 at 09:00 Atorvastatin Calcium (Lipitor) 40 mg HS PO Last administered on 12/30/16 20:24 ; Admin Dose 40 MG; Start 12/29/16 at 21:00 Latanoprost (Xalatan) 1 drop HS BOTH EYES Last administered on 12/30/16 20:23; Admin Dose 1 DROP; Start 12/29/16 at 21:00 Clonidine HCl (Catapres-Tts 1 Patch) 1 patch Q7D TRANSDERM Last administered on 12/29/16 11:18; Admin Dose 1 PATCH; Start 12/29/16 at 10:00 Folic Acid (Folic Acid) 1 mg DAILY PO Last administered on 12/31/16 08:00; Admin Dose 1 MG; Start 12/29/16 at 09:00 Gabapentin (Neurontin) 100 mg TID PO Last administered on 12/31/16 13:12; Admin Dose 100 MG; Start 12/29/16 at 09:00 Hydralazine HCl (Apresoline) 100 mg Q8 PO Last administered on 12/31/16 13:13; Admin Dose 100 MG; Start 12/29/16 at 14:00 Isosorbide Dinitrate (Isordil) 10 mg TID PO Last administered on 12/31/16 13:13 ; Admin Dose 10 MG; Start 12/29/16 at 09:00 Nifedipine (Procardia Xl) 60 mg DAILY PO Last administered on 12/31/16 08:00; Admin Dose 60 MG; Start 12/29/16 at 09:00 Promethazine HCl (Phenergan) 25 mg Q6H PRN PO VOMITTING Last administered on 20:24; Admin Dose 25 MG; Start 12/29/16 at 09:00 Topiramate 25 mg 25 mg DAILY PO Last administered on 12/31/16 08:00; Admin Dose 25 MG; Start 12/29/16 at 09:00 Dextrose/Sodium Chloride (D5-1/2ns) 1,000 ml @ 40 mls/hr Q24H IV Last administered on 12/30/16 09:24; Admin Dose 40 MLS/HR; Start 12/29/16 at 08:30 Ondansetron HCl (Zofran Inj) 4 mg Q6H PRN IV NAUSEA AND/OR VOMITING; Start 12/29 at 08:30 Acetaminophen (Tylenol Tab) 650 mg Q6H PRN PO PAIN LEVEL 1-3 OR FEVER Last administered on 12/31/16 07:08; Admin Dose 650 MG; Start 12/29/16 at 08:30 Metoclopramide HCl (Reglan) 10 mg Q6 PRN IV nausea/vommiting; Start 12/29/16 at 14:00 Hydralazine HCl 10 mg 10 mg Q6 PRN IV sbp>170 Last administered on 12/31/16 07: 08; Admin Dose 10 MG; Start 12/29/16 at 14:00 Sodium Chloride (NS) 1,000 ml @ 0 mls/hr Q0M PRN IV TO KEEP SBP ABOVE 90; Start 12/29/16 at 13:45 Miscellaneous Information 1 ea NOTE XX ; Start 12/29/16 at 14:30 Glucose (Glutose) 15 gm Q15M PRN PO DECREASED GLUCOSE; Start 12/29/16 at 14:30 Glucose (Glutose) 22.5 gm Q15M PRN PO DECREASED GLUCOSE; Start 12/29/16 at 14:30 Dextrose (D50w Syringe) 25 ml Q15M PRN IV DECREASED GLUCOSE; Start 12/29/16 at 14:30 Dextrose (D50w Syringe) 50 ml Q15M PRN IV DECREASED GLUCOSE; Start 12/29/16 at 14:30 Glucagon (Glucagen) 1 mg Q15M PRN IM DECREASED GLUCOSE; Start 12/29/16 at 14:30 Glucose (Glutose) 15 gm Q15M PRN BUCCAL DECREASED GLUCOSE; Start 12/29/16 at 14: 30 Morphine Sulfate (morphine) 2 mg Q4H PRN IV PAIN; Start 12/29/16 at 16:00 Vancomycin HCl 125 mg 125 mg Q6 PO Last administered on 12/31/16 11:51; Admin Dose 125 MG; Start 12/30/16 at 12:00 Metronidazole (Flagyl 500 Mg (Pmx)) 100 ml @ 100 mls/hr Q8 IVPB Last administered on 12/31/16 13:12; Admin Dose 100 MLS/HR; Start 12/30/16 at 14:00 Diagnostic Test (Pha) (Accu-Chek) 1 ea 02 XX ; Start 12/31/16 at 02:00 STU ROCKWELL MD Dec 31, 2016 16:23
--- NOTE | 2016-12-31 19:38 | CONS ---
DATE OF ADMISSION: 12/29/2016 DATE OF CONSULTATION: 12/31/2016 REASON FOR CONSULTATION: Positive troponin. Assess significance. REFERRING PHYSICIAN: Dano Becerra MD HISTORY OF PRESENT ILLNESS: Ms. Lipscomb is a 71-year-old female with a history of diabetes mellitus, hypertension, end-stage renal disease on hemodialysis, current constipation, prior mildly decreased EF of 45-50 percent by echo May 2016 with a stress test at that time revealing no ischemia, who presented with abdominal pain, nausea and vomiting. Upon arrival, temp 99.7, blood pressure markedly elevated to 237/104, pulse 110, respiratory rate 20, 100 percent. The patient's labs revealed a sodium 139, potassium 2.7, creatinine 5.5, BUN 19. Troponin positive 0.143. INR of 1.0. Patient underwent a chest x-ray revealing mild pulmonary vascular congestion. An abdominal pelvic CT revealed colitis in sigmoid colon, compatible with pancolitis. Patient's electrocardiogram revealed sinus tachycardia at 105, normal axis, intervals with diffuse nonspecific ST and T-wave abnormalities. The patient subsequently has been admitted to the floor and underwent a repeat 2D echo. by another in service educator Dr. Cedillo and an EF being 55 percent. The patient has had troponins trended, slowly trending down, and most recently from 0.143, down to 0.122. The patient does continue to complain of abdominal pain. PAST MEDICAL HISTORY: As above in HPI. MEDICATION: Currently in the hospital: 1. Insulin sliding scale. 2. Vancomycin 125, q.6. 3. Lipitor 40 at bedtime. 4. Xalatan eyedrops. 5. Protonix 40 mg IV daily. 6. Morphine. 7. Hydralazine 100 mg q.8. 8. Reglan p.r.n. 9. Aspirin 81 mg daily. 10. Folic acid 1 mg daily. 11. Neurontin 100 mg t.i.d. 12. Isordil 10 mg t.i.d. 13. Procardia XL 60 mg daily. 14. D5 IV fluid to 40 mL an hour. ALLERGIES: NO KNOWN DRUG ALLERGIES. SOCIAL HISTORY: No tobacco, EtOH or illicit drug use. FAMILY HISTORY: No history of sudden cardiac or early CAD. REVIEW OF SYSTEMS: As above in HPI. CONSTITUTIONAL: No fevers or chills. RESPIRATORY: No current shortness of breath. CARDIOVASCULAR: No current chest pain, positive troponin. GASTROINTESTINAL: Abdominal pain, colitis. GENITOURINARY: End-stage renal disease. PSYCHIATRIC: No documented psychiatric history. NEUROLOGIC: No documented CVA. ENDOCRINE: Diabetes mellitus. PHYSICAL EXAMINATION: VITAL SIGNS: Temperature of 98.4, blood pressure most recently of 136/59, pulse 71, respirations 18, O2 sat 96 percent. GENERAL: The patient is alert, awake, complaining abdominal pain. NECK: JVP approximately 9 cm of water. CHEST: Fair air movement, slightly decreased breath sounds at the bases bilaterally. HEART: Regular rate and rhythm. Normal S1, S2. A 1/6 systolic murmur. Nondisplaced PMI. ABDOMEN: Positive bowel sounds. Soft. EXTREMITIES: No pitting edema. 1+ pulses. Bilateral posterior tibial. LABORATORY: As above [facility] with most recently from today white blood cell count 4.2, hemoglobin 7.1, platelet count of 216. INR 1.0. Sodium 145, potassium 3.4, creatinine 4.9, BUN 13. IMAGING STUDIES: As above in HPI. No further imaging studies are reviewed at this time. ECG as above in HPI. No further electrocardiograms are reviewed this time. IMPRESSION: 1. Positive troponin, assess significance in the setting of end- stage renal disease. No current chest pain. A previous stress test May revealing no ischemia. Likely marker of chronic coronary disease and type 2 infarct in the setting of stress of colitis. 2. History of cardiomyopathy, decreased left ejection fraction improved by most recent echo this admit. 3. Abnormal electrocardiogram, nonspecific ST-T abnormalities. 4. Hypertension, under reasonable control. 5. Dyslipidemia. 6. Colitis with abdominal pain, nausea and vomiting. 7. Diabetes mellitus. RECOMMENDATIONS: 1. At this time, would maintain patient on telemetry monitoring to follow rhythm and rate control closely. 2. Would continue the patient's current aspirin and at this time we will continue the patient's statin therapy and check a fasting lipid panel and adjust accordingly. 3. Continue the patient's current antihypertensives with hydralazine, Isordil, Procardia and would initiate patient on beta martine in the setting of positive troponins. 4. In addition will continue the patient's clonidine patch at this time and further up titrate the patient's baseline antihypertensives and she is able to take p.o. antihypertensives at this time. Continue to trend the patient's cardiac enzymes. 5. Continue follow patient's colitis with additionally ongoing GI evaluation. 6. We will consider repeat stress testing this patient is to assess significance of positive troponin. Thank you for allowing me to take part in the care of this patient. I will continue to follow closely with you. Further recommendation will be made as patient progresses through her inpatient hospital course. Dictated By: Arnaldo Salcedo MD /josé manuel/oumar /Document#: [id number] CC: Dano Becerra MD;*EndCC*
[2016-12-31] MEDS: ATORVASTATIN 40 MG TAB PO SCH (20:38)
[2016-12-31] MEDS: METOPROLOL 25 MG TAB PO SCH (20:39)
[2016-12-31] MEDS: LATANOPROST 0.005% 2.5 ML OPH BOTH EYES SCH (21:01)
--- NOTE | 2016-12-31 23:26 | PN ---
Date/Time of Note Date/Time of Note DATE: 12/31/16 TIME: 23:24 Assessment/Plan VTE Prophylaxis VTE Prophylaxis Intervention: other Lines/Catheters IV [facility]ter Type (from [facility]): Peripheral IV Urinary Cath still in place: No Assessment/Plan Chief Complaint/Hosp Course 1. Abdominal pain, 2. ANEMIA 3. Elevated troponin; however, the patient denies any chest pain. The nonspecific ST- and T-wave changes. 4. Anemia with possible melena. 5. End-stage renal disease, on hemodialysis Thursday, Thursday, Thursday. 6. Diabetes. 7. Hypertension, 8. Chronic abdominal pain. 9. History of chronic constipation. 10 C DIFF PLAN HD FLAGYL Problems: Subjective 24 Hr Interval Summary Cardiovascular: no complaints Gastrointestinal: No diarrhea Exam/Review of Systems Vital Signs Vitals Vital Signs Date Time Temp Pulse Resp B/P Pulse Ox O2 Delivery O2 Flow Rate FiO2 12/31/16 20:30 76 145/64 12/31/16 20:00 98.6 17 94 12/30/16 19:52 Nasal Cannula 2.0 Intake and Output 12/30/16 12/30/16 12/31/16 15:00 23:00 07:00 Intake Total 1710 ml 1330 ml Output Total 2500 ml Balance -790 ml 1330 ml Exam Neck: supple Respiratory: clear to auscultation Cardiovascular: regular rate and rhythm Gastrointestinal: bowel sounds, soft Extremities: No edema Results Result Diagram: 12/31/1628 12/31/16727 Results 24 hrs Laboratory Tests Test 12/31/16 07:28 12/31/16 07:55 12/31/16 10:20 12/31/16 11:46 White Blood Count 4.2 #L Red Blood Count 2.28 L Hemoglobin 7.1 L Hematocrit 22.2 L Mean Corpuscular Volume 97.4 Mean Corpuscular Hemoglobin 31.1 Mean Corpuscular Hemoglobin Concent 32.0 Red Cell Distribution Width 14.7 H Platelet Count 216 Mean Platelet Volume 10.0 Neutrophils % 58.9 Lymphocytes % 19.5 Monocytes % 15.7 H Eosinophils % 5.5 Basophils % 0.2 Nucleated Red Blood Cells % 0.0 Neutrophils # (Manual) 2.5 Lymphocytes # 0.8 Monocytes # 0.7 Eosinophils # 0.2 Basophils # 0.0 Nucleated Red Blood Cells # 0.0 Sodium Level 135 Potassium Level 3.4 L Chloride Level 95 L Carbon Dioxide Level 31 Anion Gap 12 Blood Urea Nitrogen 13 # Creatinine 4.91 #H Glucose Level 90 Calcium Level 7.5 L Total Bilirubin 0.0 L Direct Bilirubin 0.00 Indirect Bilirubin 0.0 Aspartate Amino Transf (AST/SGOT) 30 Alanine Aminotransferase (ALT/SGPT) 24 Alkaline Phosphatase 58 Total Protein 5.9 L Albumin 3.3 Globulin 2.60 Albumin/Globulin Ratio 1.26 Bedside Glucose 99 95 99 Test 12/31/16 16:58 12/31/16 20:45 Bedside Glucose 116 125 Medications Medications Current Medications Aspirin (Aspirin) 81 mg DAILY PO Last administered on 12/31/16 08:00; Admin Dose 81 MG; Start 12/29/16 at 09:00 Atorvastatin Calcium (Lipitor) 40 mg HS PO Last administered on 12/31/16 20:38 ; Admin Dose 40 MG; Start 12/29/16 at 21:00 Latanoprost (Xalatan) 1 drop HS BOTH EYES Last administered on 12/31/16 21:01; Admin Dose 1 DROP; Start 12/29/16 at 21:00 Clonidine HCl (Catapres-Tts 1 Patch) 1 patch Q7D TRANSDERM Last administered on 12/29/16 11:18; Admin Dose 1 PATCH; Start 12/29/16 at 10:00 Folic Acid (Folic Acid) 1 mg DAILY PO Last administered on 12/31/16 08:00; Admin Dose 1 MG; Start 12/29/16 at 09:00 Gabapentin (Neurontin) 100 mg TID PO Last administered on 12/31/16 20:41; Admin Dose 100 MG; Start 12/29/16 at 09:00 Hydralazine HCl (Apresoline) 100 mg Q8 PO Last administered on 12/31/16 20:56; Admin Dose 100 MG; Start 12/29/16 at 14:00 Isosorbide Dinitrate (Isordil) 10 mg TID PO Last administered on 12/31/16 20:39 ; Admin Dose 10 MG; Start 12/29/16 at 09:00 Nifedipine (Procardia Xl) 60 mg DAILY PO Last administered on 12/31/16 08:00; Admin Dose 60 MG; Start 12/29/16 at 09:00 Promethazine HCl (Phenergan) 25 mg Q6H PRN PO VOMITTING Last administered on 20:24; Admin Dose 25 MG; Start 12/29/16 at 09:00 Topiramate 25 mg 25 mg DAILY PO Last administered on 12/31/16 08:00; Admin Dose 25 MG; Start 12/29/16 at 09:00 Dextrose/Sodium Chloride (D5-1/2ns) 1,000 ml @ 40 mls/hr Q24H IV Last administered on 12/30/16 09:24; Admin Dose 40 MLS/HR; Start 12/29/16 at 08:30 Ondansetron HCl (Zofran Inj) 4 mg Q6H PRN IV NAUSEA AND/OR VOMITING; Start 12/29 at 08:30 Acetaminophen (Tylenol Tab) 650 mg Q6H PRN PO PAIN LEVEL 1-3 OR FEVER Last administered on 12/31/16 07:08; Admin Dose 650 MG; Start 12/29/16 at 08:30 Metoclopramide HCl (Reglan) 10 mg Q6 PRN IV nausea/vommiting; Start 12/29/16 at 14:00 Hydralazine HCl 10 mg 10 mg Q6 PRN IV sbp>170 Last administered on 12/31/16 07: 08; Admin Dose 10 MG; Start 12/29/16 at 14:00 Sodium Chloride (NS) 1,000 ml @ 0 mls/hr Q0M PRN IV TO KEEP SBP ABOVE 90; Start 12/29/16 at 13:45 Miscellaneous Information 1 ea NOTE XX ; Start 12/29/16 at 14:30 Glucose (Glutose) 15 gm Q15M PRN PO DECREASED GLUCOSE; Start 12/29/16 at 14:30 Glucose (Glutose) 22.5 gm Q15M PRN PO DECREASED GLUCOSE; Start 12/29/16 at 14:30 Dextrose (D50w Syringe) 25 ml Q15M PRN IV DECREASED GLUCOSE; Start 12/29/16 at 14:30 Dextrose (D50w Syringe) 50 ml Q15M PRN IV DECREASED GLUCOSE; Start 12/29/16 at 14:30 Glucagon (Glucagen) 1 mg Q15M PRN IM DECREASED GLUCOSE; Start 12/29/16 at 14:30 Glucose (Glutose) 15 gm Q15M PRN BUCCAL DECREASED GLUCOSE; Start 12/29/16 at 14: 30 Morphine Sulfate (morphine) 2 mg Q4H PRN IV PAIN; Start 12/29/16 at 16:00 Vancomycin HCl 125 mg 125 mg Q6 PO Last administered on 12/31/16 17:32; Admin Dose 125 MG; Start 12/30/16 at 12:00 Metronidazole (Flagyl 500 Mg (Pmx)) 100 ml @ 100 mls/hr Q8 IVPB Last administered on 12/31/16 20:57; Admin Dose 100 MLS/HR; Start 12/30/16 at 14:00 Diagnostic Test (Pha) (Accu-Chek) 1 ea 02 XX ; Start 12/31/16 at 02:00 Metoprolol Tartrate (Lopressor) 25 mg BID PO Last administered on 12/31/16 20: 39; Admin Dose 25 MG; Start 12/31/16 at 21:00 MICHELLE MCDANIEL MD Dec 31, 2016 23:26
[2017-01-01] VITALS (18 sets, daily range): BP systolic 101–184; BP diastolic 35–79; PULSE 60–72; RESP 16–20
[2017-01-01] MEDS: VANCOMYCIN HCL 250 MG/5ML POSYG PO SCH ×4 (01:21→17:27)
[2017-01-01] MEDS: ACCU-CHEK XX SCH ×3 (01:25→14:00)
[2017-01-01] MEDS: metroNIDAZOLE 500 MG/NS (PMX) 100 ML IVPB SCH ×3 (05:25→20:42)
[2017-01-01] MEDS: PANTOPRAZOLE 40 MG INJ IV SCH ×2 (05:25→16:50)
[2017-01-01] MEDS: DEXTROSE 5%-0.45% NACL 1,000 ML IV SCH (05:29)
[2017-01-01] MEDS: INSULIN ASPART [NOVOLOG] 3 ML PEN SC SCH ×4 (08:00→20:44)
[2017-01-01] MEDS: ASPIRIN 81 MG TAB PO SCH (08:29)
[2017-01-01] MEDS: FOLIC ACID 1 MG TAB PO SCH (08:29)
[2017-01-01] MEDS: GABAPENTIN 100 MG CAP PO SCH ×3 (08:29→20:40)
[2017-01-01] MEDS: METOPROLOL 25 MG TAB PO SCH ×2 (08:30→20:41)
[2017-01-01] MEDS: TOPIRAMATE 25 MG TAB PO SCH (08:30)
[2017-01-01] MEDS: NIFEdipine (XL) 60 MG TAB PO SCH (08:30)
[2017-01-01] MEDS: ISOSORBIDE DINITRATE 10 MG TAB PO SCH ×3 (08:30→20:41)
[2017-01-01 08:42] LABS: BASOPHILS % 0.7 % (0.0-2.0); EOSINOPHILS # 0.2 10^3/ul (0.0-0.5); EOSINOPHILS % 5.6 % (0.0-7.0); HEMATOCRIT 25.3 % (37.0-47.0); HEMOGLOBIN 8.6 g/dl (12.0-16.0); LYMPHOCYTES # 1.1 10^3/ul (0.8-2.9); LYMPHOCYTES % 24.9 % (15.0-51.0); MEAN CORPUSCULAR HEMOGLOBIN 32.5 pg (29.0-33.0); MEAN CORPUSCULAR VOLUME 95.5 fl (82.0-101.0); MEAN PLATELET VOLUME 9.7 fl (7.4-10.4); MONOCYTE # 0.6 10^3/ul (0.3-0.9); MONOCYTES % 13.8 % (0.0-11.0); NEUTROPHILS % 54.5 % (39.0-77.0); PLATELET COUNT 199 10^3/UL (140-415); RED BLOOD COUNT 2.65 10^6/ul (4.20-5.40); RED CELL DISTRIBUTION WIDTH 14.1 % (11.5-14.5); WHITE BLOOD COUNT 4.3 10^3/ul (4.8-10.8)
[2017-01-01] MEDS ORDERED: REGADENOSON 0.4 MG/5 ML SYG ONE (09:11)
[2017-01-01 09:28] LABS: ALBUMIN 3.2 g/dl (3.3-4.9); ALBUMIN/GLOBULIN RATIO 1.23; CALCIUM 7.4 mg/dl (8.4-10.2); CREATININE 6.4 mg/dl (0.44-1.00); POTASSIUM 3.6 mmol/L (3.5-5.1); TOTAL PROTEIN 5.8 g/dl (6.1-8.1)
[2017-01-01 09:39] LABS: CK-MB 0.76 ng/ml (0.0-2.4); TROPONIN-I 0.068 ng/ml (0.00-0.12)
--- NOTE | 2017-01-01 10:00 | CONS ---
Date/Time of Note Date/Time of Note DATE: 01/01/17 TIME: 09:59 Assessment/Plan Assessment/Plan Additional Assessment/Plan Additional Assessment/Plan 1. anemia 2. elevated troponin secondary to renal failure patient's 2D echo was good with good ejection fraction 3. intractable nausea and vomiting 4. generalized abdominal pain 5. CT scan showing colitis: ddx ischemic > infectious > inflammatory 6. diarrhea secondary to C. difficile colitis Recommendations: Vancomycin 125 mg p.o. every 6 hours EGD for her chronic nausea for months once cleared by customer service professional Advance diet Patient is scheduled for a stress test today if negative will proceed with EGD tomorrow Patient was originally scheduled for EGD today it got canceled because of stress test Consultation Date/Type/Reason Admit Date/Time Dec 29, 2016 at 03:15 Initial Consult Date 12/29/16 Type of Consultation: GI 24 HR Interval Summary Free Text/Dictation No chest pain shortness of breath Exam/Review of Systems Vital Signs Vitals Vital Signs Date Time Temp Pulse Resp B/P Pulse Ox O2 Delivery O2 Flow Rate FiO2 01/01/17 08:13 69 01/01/17 07:43 97.7 18 128/59 97 12/30/16 19:52 Nasal Cannula 2.0 Intake and Output 12/31/16 12/31/16 01/01/17 14:59 22:59 06:59 Intake Total 870 ml Balance 870 ml Exam Constitutional: alert, oriented, well developed Psych: nl mood/affect, no complaints Head: atraumatic, normocephalic Eyes: EOMI, PERRL, nl conjunctiva, nl lids, nl sclera ENMT: nl external ears & nose, nl lips & teeth, nl nasal mucosa & septum Neck: non-tender, supple Respiratory: clear to auscultation, normal air movement Cardiovascular: nl pulses, regular rate and rhythm Gastrointestinal: nl liver, spleen, non-tender, soft Musculoskeletal: nl extremities to inspection, nl gait and stance Extremities: normal pulses Neurological: [employer]PERATOR II-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 intact, nl mental status, nl speech, nl strength Skin: nl turgor, No rash or lesions Lymph: nl lymph nodes Results Result Diagram: 01/01/17 0826 01/01/17 0826 Results 24 hrs Laboratory Tests Test 12/31/16 10:20 12/31/16 11:46 12/31/16 16:58 12/31/16 20:45 Bedside Glucose 95 99 116 125 Test 01/01/17 01:23 01/01/17 08:26 01/01/17 08:28 Bedside Glucose 107 100 White Blood Count 4.3 L Red Blood Count 2.65 L Hemoglobin 8.6 #L Hematocrit 25.3 L Mean Corpuscular Volume 95.5 Mean Corpuscular Hemoglobin 32.5 Mean Corpuscular Hemoglobin Concent 34.0 Red Cell Distribution Width 14.1 Platelet Count 199 Mean Platelet Volume 9.7 Neutrophils % 54.5 Lymphocytes % 24.9 Monocytes % 13.8 H Eosinophils % 5.6 Basophils % 0.7 Nucleated Red Blood Cells % 0.0 Neutrophils # (Manual) 2.3 Lymphocytes # 1.1 Monocytes # 0.6 Eosinophils # 0.2 Basophils # 0.0 Nucleated Red Blood Cells # 0.0 Sodium Level 132 L Potassium Level 3.6 Chloride Level 97 Carbon Dioxide Level 25 Anion Gap 14 Blood Urea Nitrogen 20 Creatinine 6.40 H Glucose Level 100 Calcium Level 7.4 L Total Bilirubin 0.0 L Direct Bilirubin 0.00 Indirect Bilirubin 0.0 Aspartate Amino Transf (AST/SGOT) 40 Alanine Aminotransferase (ALT/SGPT) 28 Alkaline Phosphatase 60 Creatine Kinase 80 Creatine Kinase Index 1.0 Creatinine Kinase MB (Mass) 0.76 Troponin I 0.068 Total Protein 5.8 L Albumin 3.2 L Globulin 2.60 Albumin/Globulin Ratio 1.23 Medications Medications Current Medications Aspirin (Aspirin) 81 mg DAILY PO Last administered on 01/01/17 08:29; Admin Dose 81 MG; Start 12/29/16 at 09:00 Atorvastatin Calcium (Lipitor) 40 mg HS PO Last administered on 12/31/16 20:38 ; Admin Dose 40 MG; Start 12/29/16 at 21:00 Latanoprost (Xalatan) 1 drop HS BOTH EYES Last administered on 12/31/16 21:01; Admin Dose 1 DROP; Start 12/29/16 at 21:00 Clonidine HCl (Catapres-Tts 1 Patch) 1 patch Q7D TRANSDERM Last administered on 12/29/16 11:18; Admin Dose 1 PATCH; Start 12/29/16 at 10:00 Folic Acid (Folic Acid) 1 mg DAILY PO Last administered on 01/01/17 08:29; Admin Dose 1 MG; Start 12/29/16 at 09:00 Gabapentin (Neurontin) 100 mg TID PO Last administered on 01/01/17 08:29; Admin Dose 100 MG; Start 12/29/16 at 09:00 Hydralazine HCl (Apresoline) 100 mg Q8 PO Last administered on 01/01/17 05:22; Admin Dose 100 MG; Start 12/29/16 at 14:00 Isosorbide Dinitrate (Isordil) 10 mg TID PO Last administered on 01/01/17 08:30 ; Admin Dose 10 MG; Start 12/29/16 at 09:00 Nifedipine (Procardia Xl) 60 mg DAILY PO Last administered on 01/01/17 08:30; Admin Dose 60 MG; Start 12/29/16 at 09:00 Promethazine HCl (Phenergan) 25 mg Q6H PRN PO VOMITTING Last administered on 20:24; Admin Dose 25 MG; Start 12/29/16 at 09:00 Topiramate 25 mg 25 mg DAILY PO Last administered on 01/01/17 08:30; Admin Dose 25 MG; Start 12/29/16 at 09:00 Dextrose/Sodium Chloride (D5-1/2ns) 1,000 ml @ 40 mls/hr Q24H IV Last administered on 01/01/17 05:29; Admin Dose 40 MLS/HR; Start 12/29/16 at 08:30 Ondansetron HCl (Zofran Inj) 4 mg Q6H PRN IV NAUSEA AND/OR VOMITING; Start 12/29 at 08:30 Acetaminophen (Tylenol Tab) 650 mg Q6H PRN PO PAIN LEVEL 1-3 OR FEVER Last administered on 12/31/16 07:08; Admin Dose 650 MG; Start 12/29/16 at 08:30 Metoclopramide HCl (Reglan) 10 mg Q6 PRN IV nausea/vommiting; Start 12/29/16 at 14:00 Hydralazine HCl 10 mg 10 mg Q6 PRN IV sbp>170 Last administered on 12/31/16 07: 08; Admin Dose 10 MG; Start 12/29/16 at 14:00 Sodium Chloride (NS) 1,000 ml @ 0 mls/hr Q0M PRN IV TO KEEP SBP ABOVE 90; Start 12/29/16 at 13:45 Miscellaneous Information 1 ea NOTE XX ; Start 12/29/16 at 14:30 Glucose (Glutose) 15 gm Q15M PRN PO DECREASED GLUCOSE; Start 12/29/16 at 14:30 Glucose (Glutose) 22.5 gm Q15M PRN PO DECREASED GLUCOSE; Start 12/29/16 at 14:30 Dextrose (D50w Syringe) 25 ml Q15M PRN IV DECREASED GLUCOSE; Start 12/29/16 at 14:30 Dextrose (D50w Syringe) 50 ml Q15M PRN IV DECREASED GLUCOSE; Start 12/29/16 at 14:30 Glucagon (Glucagen) 1 mg Q15M PRN IM DECREASED GLUCOSE; Start 12/29/16 at 14:30 Glucose (Glutose) 15 gm Q15M PRN BUCCAL DECREASED GLUCOSE; Start 12/29/16 at 14: 30 Morphine Sulfate (morphine) 2 mg Q4H PRN IV PAIN; Start 12/29/16 at 16:00 Vancomycin HCl 125 mg 125 mg Q6 PO Last administered on 01/01/17 05:22; Admin Dose 125 MG; Start 12/30/16 at 12:00 Metronidazole (Flagyl 500 Mg (Pmx)) 100 ml @ 100 mls/hr Q8 IVPB Last administered on 01/01/17 05:25; Admin Dose 100 MLS/HR; Start 12/30/16 at 14:00 Diagnostic Test (Pha) (Accu-Chek) 1 ea 02 XX Last administered on 01/01/17 01: 25; Admin Dose 1 EA; Start 12/31/16 at 02:00 Metoprolol Tartrate (Lopressor) 25 mg BID PO Last administered on 01/01/17 08: 30; Admin Dose 25 MG; Start 12/31/16 at 21:00 STU ROCKWELL MD Jan 01, 2017 10:00
--- NOTE | 2017-01-01 10:56 | CONS ---
Date/Time of Note Date/Time of Note DATE: 01/01/17 TIME: 10:52 Assessment/Plan Assessment/Plan Chief Complaint/Hosp Course IMPRESSION: 1. Positive troponin, assess significance in the setting of end- stage renal disease. No current chest pain. A previous stress test May revealing no ischemia. Likely marker of chronic coronary disease and type 2 infarct in the setting of stress of colitis. 2. History of cardiomyopathy, decreased left ejection fraction improved by most recent echo this admit. 3. Abnormal electrocardiogram, nonspecific ST-T abnormalities. 4. Hypertension, under reasonable control. 5. Dyslipidemia. 6. Colitis with abdominal pain, nausea and vomiting. 7. Diabetes mellitus. Recc: -Tele -serial ecg's -Continue BB -Continue procardia/isordil -Continue hydralazine -Continue statin and asa as tolerated only -Follow hgb closely -Lexiscan stress today to asses significance of positive trop -pnding EGD Problems: Consultation Date/Type/Reason Admit Date/Time Dec 29, 2016 at 03:15 Initial Consult Date 12/29/16 Type of Consultation: cardiology Reason for Consultation positive troponin Referring Provider: MICHELLE MCDANIEL MD Exam/Review of Systems Vital Signs Vitals Vital Signs Date Time Temp Pulse Resp B/P Pulse Ox O2 Delivery O2 Flow Rate FiO2 01/01/17 08:13 69 01/01/17 07:43 97.7 18 128/59 97 12/30/16 19:52 Nasal Cannula 2.0 Intake and Output 12/31/16 12/31/16 01/01/17 15:00 23:00 07:00 Intake Total 870 ml Balance 870 ml Exam Review of Systems: CONSTITUTIONAL: No fevers, chills. PULMONARY: No sob CARDIOVASCULAR: No chest pain/palpitations GASTROINTESTINAL: No nausea/vomiting. GENITOURINARY: No hematuria/dysuria. MUSCULOSKELETAL: No myagias/arthalgias. PSYCHIATRIC: The patient denies depression. NEUROLOGIC: mild generalized weakness Constitutional: alert Psych: no complaints Head: normocephalic ENMT: mucosa pink and moist Neck: jvd, supple Respiratory: clear to auscultation Cardiovascular: regular rate and rhythm Gastrointestinal: non-tender, soft Musculoskeletal: muscle tone (normal) Neurological: other (No focal deficits) Results Result Diagram: 9/7/17 0826 9/7/17 0826 Results 24 hrs Laboratory Tests Test 12/31/16 11:46 12/31/16 16:58 12/31/16 20:45 01/01/17 01:23 Bedside Glucose 99 116 125 107 Test 01/01/17 08:26 01/01/17 08:28 White Blood Count 4.3 L Red Blood Count 2.65 L Hemoglobin 8.6 #L Hematocrit 25.3 L Mean Corpuscular Volume 95.5 Mean Corpuscular Hemoglobin 32.5 Mean Corpuscular Hemoglobin Concent 34.0 Red Cell Distribution Width 14.1 Platelet Count 199 Mean Platelet Volume 9.7 Neutrophils % 54.5 Lymphocytes % 24.9 Monocytes % 13.8 H Eosinophils % 5.6 Basophils % 0.7 Nucleated Red Blood Cells % 0.0 Neutrophils # (Manual) 2.3 Lymphocytes # 1.1 Monocytes # 0.6 Eosinophils # 0.2 Basophils # 0.0 Nucleated Red Blood Cells # 0.0 Sodium Level 132 L Potassium Level 3.6 Chloride Level 97 Carbon Dioxide Level 25 Anion Gap 14 Blood Urea Nitrogen 20 Creatinine 6.40 H Glucose Level 100 Calcium Level 7.4 L Total Bilirubin 0.0 L Direct Bilirubin 0.00 Indirect Bilirubin 0.0 Aspartate Amino Transf (AST/SGOT) 40 Alanine Aminotransferase (ALT/SGPT) 28 Alkaline Phosphatase 60 Creatine Kinase 80 Creatine Kinase Index 1.0 Creatinine Kinase MB (Mass) 0.76 Troponin I 0.068 Total Protein 5.8 L Albumin 3.2 L Globulin 2.60 Albumin/Globulin Ratio 1.23 Bedside Glucose 100 Medications Medications Current Medications Aspirin (Aspirin) 81 mg DAILY PO Last administered on 01/01/17 08:29; Admin Dose 81 MG; Start 12/29/16 at 09:00 Atorvastatin Calcium (Lipitor) 40 mg HS PO Last administered on 12/31/16 20:38 ; Admin Dose 40 MG; Start 12/29/16 at 21:00 Latanoprost (Xalatan) 1 drop HS BOTH EYES Last administered on 12/31/16 21:01; Admin Dose 1 DROP; Start 12/29/16 at 21:00 Clonidine HCl (Catapres-Tts 1 Patch) 1 patch Q7D TRANSDERM Last administered on 12/29/16 11:18; Admin Dose 1 PATCH; Start 12/29/16 at 10:00 Folic Acid (Folic Acid) 1 mg DAILY PO Last administered on 01/01/17 08:29; Admin Dose 1 MG; Start 12/29/16 at 09:00 Gabapentin (Neurontin) 100 mg TID PO Last administered on 01/01/17 08:29; Admin Dose 100 MG; Start 12/29/16 at 09:00 Hydralazine HCl (Apresoline) 100 mg Q8 PO Last administered on 01/01/17 05:22; Admin Dose 100 MG; Start 12/29/16 at 14:00 Isosorbide Dinitrate (Isordil) 10 mg TID PO Last administered on 01/01/17 08:30 ; Admin Dose 10 MG; Start 12/29/16 at 09:00 Nifedipine (Procardia Xl) 60 mg DAILY PO Last administered on 01/01/17 08:30; Admin Dose 60 MG; Start 12/29/16 at 09:00 Promethazine HCl (Phenergan) 25 mg Q6H PRN PO VOMITTING Last administered on 20:24; Admin Dose 25 MG; Start 12/29/16 at 09:00 Topiramate 25 mg 25 mg DAILY PO Last administered on 01/01/17 08:30; Admin Dose 25 MG; Start 12/29/16 at 09:00 Dextrose/Sodium Chloride (D5-1/2ns) 1,000 ml @ 40 mls/hr Q24H IV Last administered on 01/01/17 05:29; Admin Dose 40 MLS/HR; Start 12/29/16 at 08:30 Ondansetron HCl (Zofran Inj) 4 mg Q6H PRN IV NAUSEA AND/OR VOMITING; Start 12/29 at 08:30 Acetaminophen (Tylenol Tab) 650 mg Q6H PRN PO PAIN LEVEL 1-3 OR FEVER Last administered on 12/31/16 07:08; Admin Dose 650 MG; Start 12/29/16 at 08:30 Metoclopramide HCl (Reglan) 10 mg Q6 PRN IV nausea/vommiting; Start 12/29/16 at 14:00 Hydralazine HCl 10 mg 10 mg Q6 PRN IV sbp>170 Last administered on 12/31/16 07: 08; Admin Dose 10 MG; Start 12/29/16 at 14:00 Sodium Chloride (NS) 1,000 ml @ 0 mls/hr Q0M PRN IV TO KEEP SBP ABOVE 90; Start 12/29/16 at 13:45 Miscellaneous Information 1 ea NOTE XX ; Start 12/29/16 at 14:30 Glucose (Glutose) 15 gm Q15M PRN PO DECREASED GLUCOSE; Start 12/29/16 at 14:30 Glucose (Glutose) 22.5 gm Q15M PRN PO DECREASED GLUCOSE; Start 12/29/16 at 14:30 Dextrose (D50w Syringe) 25 ml Q15M PRN IV DECREASED GLUCOSE; Start 12/29/16 at 14:30 Dextrose (D50w Syringe) 50 ml Q15M PRN IV DECREASED GLUCOSE; Start 12/29/16 at 14:30 Glucagon (Glucagen) 1 mg Q15M PRN IM DECREASED GLUCOSE; Start 12/29/16 at 14:30 Glucose (Glutose) 15 gm Q15M PRN BUCCAL DECREASED GLUCOSE; Start 12/29/16 at 14: 30 Morphine Sulfate (morphine) 2 mg Q4H PRN IV PAIN; Start 12/29/16 at 16:00 Vancomycin HCl 125 mg 125 mg Q6 PO Last administered on 01/01/17 05:22; Admin Dose 125 MG; Start 12/30/16 at 12:00 Metronidazole (Flagyl 500 Mg (Pmx)) 100 ml @ 100 mls/hr Q8 IVPB Last administered on 01/01/17 05:25; Admin Dose 100 MLS/HR; Start 12/30/16 at 14:00 Diagnostic Test (Pha) (Accu-Chek) 1 ea 02 XX Last administered on 01/01/17 01: 25; Admin Dose 1 EA; Start 12/31/16 at 02:00 Metoprolol Tartrate (Lopressor) 25 mg BID PO Last administered on 01/01/17 08: 30; Admin Dose 25 MG; Start 12/31/16 at 21:00 ANNAMARIE SANTANA Jan 01, 2017 10:56
--- NOTE | 2017-01-01 11:34 | CARRPT ---
DATE OF PROCEDURE: 01/01/2017 TYPE OF PROCEDURE: Lexiscan Cardiolite stress test, electrocardiogram portion. INDICATION: Positive troponin, assess significance. BASELINE VITAL SIGNS AND ELECTROCARDIOGRAM: Pulse 68, blood pressure 147/61. Electrocardiogram revealed normal sinus rhythm, rate of 75, normal axis, normal intervals, with T-wave flattening in the inferior and lateral leads. PROCEDURE: Patient underwent standard Lexiscan infusion protocol for 10 seconds followed by radiolabeled tracer. Patient's test was stopped due to completion of protocol. Maximum achieved blood during the test 130/60. Maximum heart rate achieved during the test 75. ELECTROCARDIOGRAM FINDINGS: The patient did not develop any new Lexiscan-induced ST-T wave changes from baseline abnormalities. No documented PVCs. SYMPTOMS: The patient had no complaints chest pain, shortness of breath during stress testing, just headache, which resolved in recovery. IMPRESSION: 1. No Lexiscan-induced ST-T wave changes from baseline abnormalities that are diagnostic for cardiac ischemia. 2. No complaints of chest pain or shortness breath during stress test. 3. No documented premature ventricular contractions during testing. 4. Report of nuclear images to follow in separate dictation. Dictated By: Arnaldo Salcedo MD /josé manuel/lashell /Document#: [id number] CC: Dano Becerra MD;*[facility]*
--- NOTE | 2017-01-01 12:48 | RADRPT ---
PROCEDURE: LEXISCAN MYOCARDIAL PERFUSION STUDY CLINICAL INDICATION: Positive troponins. TECHNIQUE: Lexiscan 0.4 mg intravenously separate acquisition, gated myocardial perfusion SPECT us ing 32.2 mCi intravenously at stress and10.8 mCi intravenously at rest was performed using the rest/ stress sequence. Poststress SPECT images were obtained in the supine position. COMPARISON: No prior studies. FINDINGS: Perfusion images demonstrates decreased attenuation in the inferior wall compatible with diaphragmat ic attenuation artifact. Otherwise, there are no evidence of fixed or reversible perfusion defects. Poststress gated SPECT images demonstrate no wall motion abnormalities. IMPRESSION: 1. No evidence of perfusion defects. 2. No wall motion abnormalities. 3. The left ventricle ejection fraction at stress is 56% . RPTAT: HH Physician Lizabeth Date Time Electronically viewed and signed by Physician Lizabeth on 01/01/2017 12:48 /
[2017-01-01] MEDS: ACETAMINOPHEN 325 MG TAB PO PRN (13:15)
--- NOTE | 2017-01-01 17:24 | PN ---
Date/Time of Note Date/Time of Note DATE: 01/01/17 TIME: 17:23 Assessment/Plan VTE Prophylaxis VTE Prophylaxis Intervention: other Lines/Catheters IV Catheter Type (from Nrs): Peripheral IV Urinary Cath still in place: No Assessment/Plan Chief Complaint/Hosp Course 1. Abdominal pain, better 2. ANEMIA 3. Elevated troponin; however, the patient denies any chest pain. The nonspecific ST- and T-wave changes. 4. Anemia with possible melena. 5. End-stage renal disease, on hemodialysis Thursday, Thursday, Thursday. 6. Diabetes. 7. Hypertension, 8. Chronic abdominal pain. 9. History of chronic constipation. 10 C DIFF PLAN HD FLAGYL vanco Problems: Subjective 24 Hr Interval Summary Subjective hx not possible: other (on hd) Cardiovascular: no complaints Gastrointestinal: diarrhea (+) Exam/Review of Systems Vital Signs Vitals Vital Signs Date Time Temp Pulse Resp B/P Pulse Ox O2 Delivery O2 Flow Rate FiO2 01/01/17 16:23 62 01/01/17 15:53 98.4 16 101/46 95 12/30/16 19:52 Nasal Cannula 2.0 Intake and Output 12/31/16 12/31/16 01/01/17 15:00 23:00 07:00 Intake Total 870 ml Balance 870 ml Exam Neck: supple Respiratory: clear to auscultation Cardiovascular: regular rate and rhythm Gastrointestinal: soft Genitourinary - Female: nl adnexae Results Result Diagram: 01/01/17 0826 01/01/17 0826 Results 24 hrs Laboratory Tests Test 12/31/16 20:45 01/01/17 01:23 01/01/17 08:26 01/01/17 08:28 Bedside Glucose 125 107 100 White Blood Count 4.3 L Red Blood Count 2.65 L Hemoglobin 8.6 #L Hematocrit 25.3 L Mean Corpuscular Volume 95.5 Mean Corpuscular Hemoglobin 32.5 Mean Corpuscular Hemoglobin Concent 34.0 Red Cell Distribution Width 14.1 Platelet Count 199 Mean Platelet Volume 9.7 Neutrophils % 54.5 Lymphocytes % 24.9 Monocytes % 13.8 H Eosinophils % 5.6 Basophils % 0.7 Nucleated Red Blood Cells % 0.0 Neutrophils # (Manual) 2.3 Lymphocytes # 1.1 Monocytes # 0.6 Eosinophils # 0.2 Basophils # 0.0 Nucleated Red Blood Cells # 0.0 Sodium Level 132 L Potassium Level 3.6 Chloride Level 97 Carbon Dioxide Level 25 Anion Gap 14 Blood Urea Nitrogen 20 Creatinine 6.40 H Glucose Level 100 Calcium Level 7.4 L Total Bilirubin 0.0 L Direct Bilirubin 0.00 Indirect Bilirubin 0.0 Aspartate Amino Transf (AST/SGOT) 40 Alanine Aminotransferase (ALT/SGPT) 28 Alkaline Phosphatase 60 Creatine Kinase 80 Creatine Kinase Index 1.0 Creatinine Kinase MB (Mass) 0.76 Troponin I 0.068 Total Protein 5.8 L Albumin 3.2 L Globulin 2.60 Albumin/Globulin Ratio 1.23 Test 01/01/17 12:21 01/01/17 16:49 Bedside Glucose 83 161 Medications Medications Current Medications Aspirin (Aspirin) 81 mg DAILY PO Last administered on 01/01/17 08:29; Admin Dose 81 MG; Start 12/29/16 at 09:00 Atorvastatin Calcium (Lipitor) 40 mg HS PO Last administered on 12/31/16 20:38 ; Admin Dose 40 MG; Start 12/29/16 at 21:00 Latanoprost (Xalatan) 1 drop HS BOTH EYES Last administered on 12/31/16 21:01; Admin Dose 1 DROP; Start 12/29/16 at 21:00 Clonidine HCl (Catapres-Tts 1 Patch) 1 patch Q7D TRANSDERM Last administered on 12/29/16 11:18; Admin Dose 1 PATCH; Start 12/29/16 at 10:00 Folic Acid (Folic Acid) 1 mg DAILY PO Last administered on 01/01/17 08:29; Admin Dose 1 MG; Start 12/29/16 at 09:00 Gabapentin (Neurontin) 100 mg TID PO Last administered on 01/01/17 13:15; Admin Dose 100 MG; Start 12/29/16 at 09:00 Hydralazine HCl (Apresoline) 100 mg Q8 PO Last administered on 01/01/17 05:22; Admin Dose 100 MG; Start 12/29/16 at 14:00 Isosorbide Dinitrate (Isordil) 10 mg TID PO Last administered on 01/01/17 13:15 ; Admin Dose 10 MG; Start 12/29/16 at 09:00 Nifedipine (Procardia Xl) 60 mg DAILY PO Last administered on 01/01/17 08:30; Admin Dose 60 MG; Start 12/29/16 at 09:00 Promethazine HCl (Phenergan) 25 mg Q6H PRN PO VOMITTING Last administered on 20:24; Admin Dose 25 MG; Start 12/29/16 at 09:00 Topiramate 25 mg 25 mg DAILY PO Last administered on 01/01/17 08:30; Admin Dose 25 MG; Start 12/29/16 at 09:00 Dextrose/Sodium Chloride (D5-1/2ns) 1,000 ml @ 40 mls/hr Q24H IV Last administered on 01/01/17 05:29; Admin Dose 40 MLS/HR; Start 12/29/16 at 08:30 Ondansetron HCl (Zofran Inj) 4 mg Q6H PRN IV NAUSEA AND/OR VOMITING; Start 12/29 at 08:30 Acetaminophen (Tylenol Tab) 650 mg Q6H PRN PO PAIN LEVEL 1-3 OR FEVER Last administered on 01/01/17 13:15; Admin Dose 650 MG; Start 12/29/16 at 08:30 Metoclopramide HCl (Reglan) 10 mg Q6 PRN IV nausea/vommiting; Start 12/29/16 at 14:00 Hydralazine HCl 10 mg 10 mg Q6 PRN IV sbp>170 Last administered on 12/31/16 07: 08; Admin Dose 10 MG; Start 12/29/16 at 14:00 Sodium Chloride (NS) 1,000 ml @ 0 mls/hr Q0M PRN IV TO KEEP SBP ABOVE 90; Start 12/29/16 at 13:45 Miscellaneous Information 1 ea NOTE XX ; Start 12/29/16 at 14:30 Glucose (Glutose) 15 gm Q15M PRN PO DECREASED GLUCOSE; Start 12/29/16 at 14:30 Glucose (Glutose) 22.5 gm Q15M PRN PO DECREASED GLUCOSE; Start 12/29/16 at 14:30 Dextrose (D50w Syringe) 25 ml Q15M PRN IV DECREASED GLUCOSE; Start 12/29/16 at 14:30 Dextrose (D50w Syringe) 50 ml Q15M PRN IV DECREASED GLUCOSE; Start 12/29/16 at 14:30 Glucagon (Glucagen) 1 mg Q15M PRN IM DECREASED GLUCOSE; Start 12/29/16 at 14:30 Glucose (Glutose) 15 gm Q15M PRN BUCCAL DECREASED GLUCOSE; Start 12/29/16 at 14: 30 Morphine Sulfate (morphine) 2 mg Q4H PRN IV PAIN; Start 12/29/16 at 16:00 Vancomycin HCl 125 mg 125 mg Q6 PO Last administered on 01/01/17 12:41; Admin Dose 125 MG; Start 12/30/16 at 12:00 Metronidazole (Flagyl 500 Mg (Pmx)) 100 ml @ 100 mls/hr Q8 IVPB Last administered on 01/01/17 13:15; Admin Dose 100 MLS/HR; Start 12/30/16 at 14:00 Diagnostic Test (Pha) (Accu-Chek) 1 ea 02 XX Last administered on 01/01/17 01: 25; Admin Dose 1 EA; Start 12/31/16 at 02:00 Metoprolol Tartrate (Lopressor) 25 mg BID PO Last administered on 01/01/17 08: 30; Admin Dose 25 MG; Start 12/31/16 at 21:00 MICHELLE MCDANIEL MD Jan 01, 2017 17:24
--- NOTE | 2017-01-01 19:35 | RADRPT ---
Vent Rate: 70 bpm RR Interval: 0 msec ND Interval: 168 msec QRS Duration: 90 msec QT Interval: 432 msec QTC Interval: 466 msec P-R-T [place]: 34 - -13 - 3 degrees Normal sinus rhythm Normal ECG Electronically Signed By: Arnaldo Salcedo [id number]
[2017-01-01] MEDS: ATORVASTATIN 40 MG TAB PO SCH (20:40)
[2017-01-01] MEDS: LATANOPROST 0.005% 2.5 ML OPH BOTH EYES SCH (20:40)
[2017-01-02] VITALS (19 sets, daily range): BP systolic 141–196; BP diastolic 62–88; PULSE 60–66; RESP 13–20
[2017-01-02] MEDS: VANCOMYCIN HCL 250 MG/5ML POSYG PO SCH ×4 (00:31→17:36)
[2017-01-02] MEDS: hydrALAzine 20 MG INJ IV PRN (00:31)
[2017-01-02] MEDS: ACCU-CHEK XX SCH (02:00)
[2017-01-02] MEDS: metroNIDAZOLE 500 MG/NS (PMX) 100 ML IVPB SCH ×3 (05:11→20:59)
[2017-01-02] MEDS: INSULIN ASPART [NOVOLOG] 3 ML PEN SC SCH ×4 (08:00→20:59)
[2017-01-02] MEDS: PANTOPRAZOLE 40 MG INJ IV SCH ×2 (08:10→17:36)
[2017-01-02] MEDS ORDERED: ETOMIDATE 20 MG INJ ONE (11:45)
[2017-01-02] MEDS ORDERED: FENTAnyl 50 MCG/ML VIAL ONE (11:45)
[2017-01-02] MEDS ORDERED: MIDAZOLAM 1 MG/ML 2 ML INJ ONE (11:45)
[2017-01-02] MEDS ORDERED: ONDANSETRON 4 MG INJ IV PRN (12:00)
--- NOTE | 2017-01-02 12:03 | OPPN ---
Date/Time of Note Date/Time of Note DATE: 01/02/17 TIME: 12:01 Operative Report Preoperative Diagnosis Nausea and epigastric pain for months Postoperative Diagnosis Same Operation/Procedure Performed 1. Severe gastroparesis 2. Esophageal moniliasis 3. Antral lesion polypoid 3 cm in diameter Provider: STU ROCKWELL MD Anesthesia Type: MAC Estimated blood loss: none Transfusion Required: no Specimen: none Specimens 3 biopsies obtained from the antral lesion Grafts/Implants: none Complications: no STU ROCKWELL MD Jan 02, 2017 12:03
[2017-01-02] MEDS: ISOSORBIDE DINITRATE 10 MG TAB PO SCH ×3 (13:00→20:58)
[2017-01-02] MEDS: GABAPENTIN 100 MG CAP PO SCH ×3 (13:00→20:58)
[2017-01-02] MEDS: DEXTROSE 5%-0.45% NACL 1,000 ML IV SCH (13:52)
[2017-01-02] MEDS: TOPIRAMATE 25 MG TAB PO SCH (13:53)
[2017-01-02] MEDS: NIFEdipine (XL) 60 MG TAB PO SCH (13:53)
[2017-01-02] MEDS: METOPROLOL 25 MG TAB PO SCH ×2 (13:53→20:58)
[2017-01-02] MEDS: ASPIRIN 81 MG TAB PO SCH (13:54)
[2017-01-02] MEDS: FOLIC ACID 1 MG TAB PO SCH (13:54)
--- NOTE | 2017-01-02 14:44 | GILP ---
DATE OF PROCEDURE: 01/02/2017 PROCEDURE PERFORMED: Esophagogastroduodenoscopy with biopsy. INDICATION: A 71-year-old female undergoing this procedure for persistent nausea and epigastric pain. The purpose is to evaluate the upper GI tract, rule out gastric outlet obstruction versus malignancy versus peptic ulcer disease. The risks of the procedure, related complications, and anesthetic risks, alternatives discussed. Informed consent was obtained. DESCRIPTION OF PROCEDURE: Patient was brought to the GI lab, sedated by the anesthesiologist. After optimal sedation, scope was passed with much ease into the esophagus, which was grossly within normal limits. Z-line was normal. Stomach mucosa was filled with undigested food particle occupying 50 percent of the fundal area consistent with the diagnosis of gastroparesis. There was a 2-3 cm polypoid lesion identified in the antrum, 3 biopsies obtained. For duodenum 1st and 2nd part appeared normal including the ampulla. There was also poor contractility of the 2nd part of the small intestine with retrograde flow of bile juice. Retroversion done again gastroparesis confirmed. The scope was straightened out and removed with good patient tolerance. IMPRESSION: 1. Gastroparesis, severe. 2. Antral lesion 3 cm in diameter. Multiple biopsies obtained. 3. Normal esophagus except for a moniliasis. 4. No varicose vein identified. PLAN: Start the patient on Reglan. Diflucan for the esophageal moniliasis. Will complete the course for 10 days and hopefully this should resolve her symptoms. We will review the histopathology of the polypoid lesion. This needs to be followed up if polyp biopsies negative once in a year. Dictated By: Ishaan Medley MD /josé manuel/oumar /Document#: [id number] CC: Dano Becerra MD;*[facility]*
--- NOTE | 2017-01-02 15:50 | CONS ---
Date/Time of Note Date/Time of Note DATE: 01/02/17 TIME: 15:46 Assessment/Plan Assessment/Plan Chief Complaint/Hosp Course IMPRESSION: 1. Positive troponin, assess significance in the setting of end- stage renal disease. No current chest pain. A previous stress test May revealing no ischemia. Likely marker of chronic coronary disease and type 2 infarct in the setting of stress of colitis.-now s/p repeat nani 01/01 with no ischemia/NL EF 2. History of cardiomyopathy, decreased left ejection fraction improved by most recent echo this admit. 3. Abnormal electrocardiogram, nonspecific ST-T abnormalities. 4. Hypertension, under reasonable control. 5. Dyslipidemia. 6. Colitis with abdominal pain, nausea and vomiting. 7. Diabetes mellitus. Recc: -Tele -serial ecg's -Continue BB -Continue procardia/isordil with slight increase to improve BP control -Continue hydralazine -Continue statin and asa as tolerated only -Follow hgb closely -EGD today Problems: Consultation Date/Type/Reason Admit Date/Time Dec 29, 2016 at 03:15 Initial Consult Date 12/29/16 Type of Consultation: cardiology Reason for Consultation positive troponin Referring Provider: MICHELLE MCDANIEL MD Exam/Review of Systems Vital Signs Vitals Vital Signs Date Time Temp Pulse Resp B/P Pulse Ox O2 Delivery O2 Flow Rate FiO2 01/02/17 15:29 98.3 77 18 158/75 97 01/02/17 12:37 Nasal Cannula 2.0 Intake and Output 01/01/17 01/01/17 01/02/17 15:00 23:00 07:00 Intake Total 1400 ml 780 ml Output Total 2000 ml Balance -600 ml 780 ml Exam Review of Systems: CONSTITUTIONAL: No fevers, chills. PULMONARY: No sob CARDIOVASCULAR: No chest pain/palpitations GASTROINTESTINAL: No nausea/vomiting. GENITOURINARY: No hematuria/dysuria. MUSCULOSKELETAL: No myagias/arthalgias. PSYCHIATRIC: The patient denies depression. NEUROLOGIC: No weakness Constitutional: alert Psych: no complaints ENMT: mucosa pink and moist Neck: supple Respiratory: diminished breath sounds (at bases/B) Cardiovascular: regular rate and rhythm Gastrointestinal: non-tender, soft Musculoskeletal: muscle tone (normal) Extremities: edema (none) Neurological: other (No focal deficits) Results Result Diagram: 9/7/17 0826 9/7/17 0826 Results 24 hrs Laboratory Tests Test 01/01/17 16:49 01/01/17 20:43 01/02/17 08:08 Bedside Glucose 161 175 121 Medications Medications Current Medications Aspirin (Aspirin) 81 mg DAILY PO Last administered on 01/02/17 13:54; Admin Dose 81 MG; Start 12/29/16 at 09:00 Atorvastatin Calcium (Lipitor) 40 mg HS PO Last administered on 01/01/17 20:40 ; Admin Dose 40 MG; Start 12/29/16 at 21:00 Latanoprost (Xalatan) 1 drop HS BOTH EYES Last administered on 01/01/17 20:40; Admin Dose 1 DROP; Start 12/29/16 at 21:00 Clonidine HCl (Catapres-Tts 1 Patch) 1 patch Q7D TRANSDERM Last administered on 12/29/16 11:18; Admin Dose 1 PATCH; Start 12/29/16 at 10:00 Folic Acid (Folic Acid) 1 mg DAILY PO Last administered on 01/02/17 13:54; Admin Dose 1 MG; Start 12/29/16 at 09:00 Gabapentin (Neurontin) 100 mg TID PO Last administered on 01/02/17 13:54; Admin Dose 100 MG; Start 12/29/16 at 09:00 Hydralazine HCl (Apresoline) 100 mg Q8 PO Last administered on 01/02/17 13:54; Admin Dose 100 MG; Start 12/29/16 at 14:00 Isosorbide Dinitrate (Isordil) 10 mg TID PO Last administered on 01/02/17 13:54 ; Admin Dose 10 MG; Start 12/29/16 at 09:00 Nifedipine (Procardia Xl) 60 mg DAILY PO Last administered on 01/02/17 13:53; Admin Dose 60 MG; Start 12/29/16 at 09:00 Promethazine HCl (Phenergan) 25 mg Q6H PRN PO VOMITTING Last administered on 20:24; Admin Dose 25 MG; Start 12/29/16 at 09:00 Topiramate 25 mg 25 mg DAILY PO Last administered on 01/02/17 13:53; Admin Dose 25 MG; Start 12/29/16 at 09:00 Dextrose/Sodium Chloride (D5-1/2ns) 1,000 ml @ 40 mls/hr Q24H IV Last administered on 01/02/17 13:52; Admin Dose 40 MLS/HR; Start 12/29/16 at 08:30 Ondansetron HCl (Zofran Inj) 4 mg Q6H PRN IV NAUSEA AND/OR VOMITING; Start 12/29 at 08:30 Acetaminophen (Tylenol Tab) 650 mg Q6H PRN PO PAIN LEVEL 1-3 OR FEVER Last administered on 01/01/17 13:15; Admin Dose 650 MG; Start 12/29/16 at 08:30 Metoclopramide HCl (Reglan) 10 mg Q6 PRN IV nausea/vommiting; Start 12/29/16 at 14:00 Hydralazine HCl 10 mg 10 mg Q6 PRN IV sbp>170 Last administered on 01/02/17 00: 31; Admin Dose 10 MG; Start 12/29/16 at 14:00 Sodium Chloride (NS) 1,000 ml @ 0 mls/hr Q0M PRN IV TO KEEP SBP ABOVE 90; Start 12/29/16 at 13:45 Miscellaneous Information 1 ea NOTE XX ; Start 12/29/16 at 14:30 Glucose (Glutose) 15 gm Q15M PRN PO DECREASED GLUCOSE; Start 12/29/16 at 14:30 Glucose (Glutose) 22.5 gm Q15M PRN PO DECREASED GLUCOSE; Start 12/29/16 at 14:30 Dextrose (D50w Syringe) 25 ml Q15M PRN IV DECREASED GLUCOSE; Start 12/29/16 at 14:30 Dextrose (D50w Syringe) 50 ml Q15M PRN IV DECREASED GLUCOSE; Start 12/29/16 at 14:30 Glucagon (Glucagen) 1 mg Q15M PRN IM DECREASED GLUCOSE; Start 12/29/16 at 14:30 Glucose (Glutose) 15 gm Q15M PRN BUCCAL DECREASED GLUCOSE; Start 12/29/16 at 14: 30 Morphine Sulfate (morphine) 2 mg Q4H PRN IV PAIN; Start 12/29/16 at 16:00 Vancomycin HCl 125 mg 125 mg Q6 PO Last administered on 01/02/17 13:53; Admin Dose 125 MG; Start 12/30/16 at 12:00 Metronidazole (Flagyl 500 Mg (Pmx)) 100 ml @ 100 mls/hr Q8 IVPB Last administered on 01/02/17 13:52; Admin Dose 100 MLS/HR; Start 12/30/16 at 14:00 Diagnostic Test (Pha) (Accu-Chek) 1 ea 02 XX Last administered on 01/01/17 01: 25; Admin Dose 1 EA; Start 12/31/16 at 02:00 Metoprolol Tartrate (Lopressor) 25 mg BID PO Last administered on 01/02/17 13: 53; Admin Dose 25 MG; Start 12/31/16 at 21:00 Metoclopramide HCl (Reglan) 5 mg Q6 IV ; Start 01/02/17 at 18:00 ANNAMARIE SANTANA Jan 02, 2017 15:50
[2017-01-02] MEDS: METOCLOPRAMIDE 10 MG INJ IV SCH (17:36)
[2017-01-02] MEDS: ATORVASTATIN 40 MG TAB PO SCH (20:57)
[2017-01-02] MEDS: LATANOPROST 0.005% 2.5 ML OPH BOTH EYES SCH (20:57)
[2017-01-02] MEDS: NIFEdipine (XL) 30 MG TAB PO SCH (20:58)
[2017-01-03] VITALS (19 sets, daily range): BP systolic 110–131; BP diastolic 50–72; PULSE 60–69; RESP 16–20
[2017-01-03] MEDS: VANCOMYCIN HCL 250 MG/5ML POSYG PO SCH ×4 (00:22→17:22)
[2017-01-03] MEDS: GUAIFENESIN 20 MG/ML 5ML CUP PO PRN (00:22)
[2017-01-03] MEDS: ACCU-CHEK XX SCH (02:00)
[2017-01-03] MEDS: metroNIDAZOLE 500 MG/NS (PMX) 100 ML IVPB SCH ×3 (06:11→20:50)
[2017-01-03] MEDS: METOCLOPRAMIDE 10 MG INJ IV SCH ×4 (06:11→17:23)
[2017-01-03] MEDS: PANTOPRAZOLE 40 MG INJ IV SCH ×2 (06:19→17:22)
[2017-01-03] MEDS: INSULIN ASPART [NOVOLOG] 3 ML PEN SC SCH ×4 (08:00→20:46)
[2017-01-03] MEDS: DEXTROSE 5%-0.45% NACL 1,000 ML IV SCH (08:30)
[2017-01-03] MEDS: GABAPENTIN 100 MG CAP PO SCH ×3 (09:45→20:48)
[2017-01-03] MEDS: FOLIC ACID 1 MG TAB PO SCH (09:46)
[2017-01-03] MEDS: NIFEdipine (XL) 60 MG TAB PO SCH (09:46)
[2017-01-03] MEDS: ASPIRIN 81 MG TAB PO SCH (09:46)
[2017-01-03] MEDS: METOPROLOL 25 MG TAB PO SCH ×2 (09:47→20:48)
[2017-01-03] MEDS: TOPIRAMATE 25 MG TAB PO SCH (09:47)
[2017-01-03] MEDS: ISOSORBIDE DINITRATE 10 MG TAB PO SCH ×3 (09:47→20:49)
--- NOTE | 2017-01-03 12:51 | CONS ---
Date/Time of Note Date/Time of Note DATE: 01/03/17 TIME: 12:49 Assessment/Plan Assessment/Plan Additional Assessment/Plan Additional Assessment/Plan Additional Assessment/Plan 1. anemia 2. elevated troponin secondary to renal failure patient's 2D echo was good with good ejection fraction 3. intractable nausea and vomiting 4. generalized abdominal pain 5. CT scan showing colitis: ddx ischemic > infectious > inflammatory 6. diarrhea secondary to C. difficile colitis 7. Diabetic gastroparesis 8. Esophageal moniliasis Recommendations: Vancomycin 125 mg p.o. every 6 hour Advance diet Diflucan 100 mg daily Reglan 5 mg IV push 3 times daily for gastroparesis Consultation Date/Type/Reason Admit Date/Time Dec 29, 2016 at 03:15 Initial Consult Date 12/29/16 Type of Consultation: cardiology Referring Provider: MICHELLE MCDANIEL MD 24 HR Interval Summary Constitutional: improved, no complaints Exam/Review of Systems Vital Signs Vitals Vital Signs Date Time Temp Pulse Resp B/P Pulse Ox O2 Delivery O2 Flow Rate FiO2 01/03/17 12:09 65 01/03/17 11:27 97.9 20 117/56 96 01/02/17 12:37 Nasal Cannula 2.0 Intake and Output 01/02/17 01/02/17 01/03/17 15:00 23:00 07:00 Intake Total 0 ml 580 ml 500 ml Balance 0 ml 580 ml 500 ml Exam Constitutional: alert, oriented, well developed Psych: nl mood/affect, no complaints Head: atraumatic, normocephalic Eyes: EOMI, PERRL, nl conjunctiva, nl lids, nl sclera ENMT: nl external ears & nose, nl lips & teeth, nl nasal mucosa & septum Neck: non-tender, supple Respiratory: clear to auscultation, normal air movement Cardiovascular: nl pulses, regular rate and rhythm Gastrointestinal: nl liver, spleen, non-tender, soft Musculoskeletal: nl extremities to inspection, nl gait and stance Extremities: normal pulses Neurological: [employer] 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 II-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 intact, nl mental status, nl speech, nl strength Skin: nl turgor, No rash or lesions Lymph: nl lymph nodes Results Result Diagram: 01/01/17 0826 01/01/17 0826 Results 24 hrs Laboratory Tests Test 01/02/17 17:35 01/02/17 20:55 01/03/17 06:40 01/03/17 08:08 Bedside Glucose 124 105 100 Lab Scanned Report BLOOD TRANSFUSION Medications Medications Current Medications Aspirin (Aspirin) 81 mg DAILY PO Last administered on 01/03/17 09:46; Admin Dose 81 MG; Start 12/29/16 at 09:00 Atorvastatin Calcium (Lipitor) 40 mg HS PO Last administered on 01/02/17 20:57 ; Admin Dose 40 MG; Start 12/29/16 at 21:00 Latanoprost (Xalatan) 1 drop HS BOTH EYES Last administered on 01/02/17 20:57; Admin Dose 1 DROP; Start 12/29/16 at 21:00 Clonidine HCl (Catapres-Tts 1 Patch) 1 patch Q7D TRANSDERM Last administered on 12/29/16 11:18; Admin Dose 1 PATCH; Start 12/29/16 at 10:00 Folic Acid (Folic Acid) 1 mg DAILY PO Last administered on 01/03/17 09:46; Admin Dose 1 MG; Start 12/29/16 at 09:00 Gabapentin (Neurontin) 100 mg TID PO Last administered on 01/03/17 09:45; Admin Dose 100 MG; Start 12/29/16 at 09:00 Hydralazine HCl (Apresoline) 100 mg Q8 PO Last administered on 01/03/17 06:11; Admin Dose 100 MG; Start 12/29/16 at 14:00 Isosorbide Dinitrate (Isordil) 10 mg TID PO Last administered on 01/03/17 09:47 ; Admin Dose 10 MG; Start 12/29/16 at 09:00 Nifedipine (Procardia Xl) 60 mg DAILY PO Last administered on 01/03/17 09:46; Admin Dose 60 MG; Start 12/29/16 at 09:00 Promethazine HCl (Phenergan) 25 mg Q6H PRN PO VOMITTING Last administered on 20:24; Admin Dose 25 MG; Start 12/29/16 at 09:00 Topiramate 25 mg 25 mg DAILY PO Last administered on 01/03/17 09:47; Admin Dose 25 MG; Start 12/29/16 at 09:00 Dextrose/Sodium Chloride (D5-1/2ns) 1,000 ml @ 40 mls/hr Q24H IV Last administered on 01/02/17 13:52; Admin Dose 40 MLS/HR; Start 12/29/16 at 08:30 Ondansetron HCl (Zofran Inj) 4 mg Q6H PRN IV NAUSEA AND/OR VOMITING; Start 12/29 at 08:30 Acetaminophen (Tylenol Tab) 650 mg Q6H PRN PO PAIN LEVEL 1-3 OR FEVER Last administered on 01/01/17 13:15; Admin Dose 650 MG; Start 12/29/16 at 08:30 Metoclopramide HCl (Reglan) 10 mg Q6 PRN IV nausea/vommiting; Start 12/29/16 at 14:00 Hydralazine HCl 10 mg 10 mg Q6 PRN IV sbp>170 Last administered on 01/02/17 00: 31; Admin Dose 10 MG; Start 12/29/16 at 14:00 Sodium Chloride (NS) 1,000 ml @ 0 mls/hr Q0M PRN IV TO KEEP SBP ABOVE 90; Start 12/29/16 at 13:45 Miscellaneous Information 1 ea NOTE XX ; Start 12/29/16 at 14:30 Glucose (Glutose) 15 gm Q15M PRN PO DECREASED GLUCOSE; Start 12/29/16 at 14:30 Glucose (Glutose) 22.5 gm Q15M PRN PO DECREASED GLUCOSE; Start 12/29/16 at 14:30 Dextrose (D50w Syringe) 25 ml Q15M PRN IV DECREASED GLUCOSE; Start 12/29/16 at 14:30 Dextrose (D50w Syringe) 50 ml Q15M PRN IV DECREASED GLUCOSE; Start 12/29/16 at 14:30 Glucagon (Glucagen) 1 mg Q15M PRN IM DECREASED GLUCOSE; Start 12/29/16 at 14:30 Glucose (Glutose) 15 gm Q15M PRN BUCCAL DECREASED GLUCOSE; Start 12/29/16 at 14: 30 Morphine Sulfate (morphine) 2 mg Q4H PRN IV PAIN; Start 12/29/16 at 16:00 Vancomycin HCl 125 mg 125 mg Q6 PO Last administered on 01/03/17 06:11; Admin Dose 125 MG; Start 12/30/16 at 12:00 Metronidazole (Flagyl 500 Mg (Pmx)) 100 ml @ 100 mls/hr Q8 IVPB Last administered on 01/03/17 06:11; Admin Dose 100 MLS/HR; Start 12/30/16 at 14:00 Diagnostic Test (Pha) (Accu-Chek) 1 ea 02 XX Last administered on 01/01/17 01: 25; Admin Dose 1 EA; Start 12/31/16 at 02:00 Metoprolol Tartrate (Lopressor) 25 mg BID PO Last administered on 01/03/17 09: 47; Admin Dose 25 MG; Start 12/31/16 at 21:00 Metoclopramide HCl (Reglan) 5 mg Q6 IV Last administered on 01/03/17 06:11; Admin Dose 5 MG; Start 01/02/17 at 18:00 Nifedipine (Procardia Xl) 30 mg HS PO Last administered on 01/02/17 20:58; Admin Dose 30 MG; Start 01/02/17 at 21:00 Guaifenesin (Robitussin Liquid Cup) 100 mg Q6H PRN PO COUGH Last administered on 01/03/17 00:22; Admin Dose 100 MG; Start 01/02/17 at 21:30 Fluconazole (Diflucan) 100 mg DAILY GTB ; Start 01/04/17 at 09:00; Status UNSTU MELVIN MD Jan 03, 2017 12:51
--- NOTE | 2017-01-03 14:25 | PN ---
Date/Time of Note Date/Time of Note DATE: 01/03/17 TIME: 14:24 Assessment/Plan VTE Prophylaxis VTE Prophylaxis Intervention: SCD's Lines/Catheters IV C[facility]ter Type (from [facility]): [place] [facility] Urinary Cath still in place: No Assessment/Plan Chief Complaint/Hosp Course s/p EGD:1. Severe gastroparesis 2. Esophageal moniliasis 3. Antral lesion polypoid 3 cm in diameter 4. Abdominal pain, better 5. ANEMIA 6. Elevated troponin; however, the patient denies any chest pain. The nonspecific ST- and T-wave changes. 7. End-stage renal disease, on hemodialysis Thursday, Thursday, Thursday. 8. Diabetes. 9. Hypertension, 8. hx of Chronic abdominal pain. 10. History of chronic constipation. 11. C DIFF Problems: Assessment/Plan 1. continue HD. 2. continue current regime Subjective 24 Hr Interval Summary Constitutional: no complaints Eyes: no complaints ENT: no complaints Gastrointestinal: pain Exam/Review of Systems Vital Signs Vitals Vital Signs Date Time Temp Pulse Resp B/P Pulse Ox O2 Delivery O2 Flow Rate FiO2 01/03/17 13:30 60 01/03/17 11:27 97.9 20 117/56 96 01/02/17 12:37 Nasal Cannula 2.0 Intake and Output 01/02/17 01/02/17 01/03/17 15:00 23:00 07:00 Intake Total 0 ml 580 ml 500 ml Balance 0 ml 580 ml 500 ml Exam Constitutional: alert, oriented ENMT: nl external ears & nose Neck: supple Respiratory: diminished breath sounds Cardiovascular: regular rate and rhythm Results Result Diagram: 01/01/1782501/01/17 08 Results 24 hrs Laboratory Tests Test 01/02/17 17:35 01/02/17 20:55 01/03/17 06:40 01/03/17 08:08 Bedside Glucose 124 105 100 Lab Scanned Report BLOOD TRANSFUSION Test 01/03/17 14:16 Bedside Glucose 129 Medications Medications Current Medications Aspirin (Aspirin) 81 mg DAILY PO Last administered on 01/03/17 09:46; Admin Dose 81 MG; Start 12/29/16 at 09:00 Atorvastatin Calcium (Lipitor) 40 mg HS PO Last administered on 01/02/17 20:57 ; Admin Dose 40 MG; Start 12/29/16 at 21:00 Latanoprost (Xalatan) 1 drop HS BOTH EYES Last administered on 01/02/17 20:57; Admin Dose 1 DROP; Start 12/29/16 at 21:00 Clonidine HCl (Catapres-Tts 1 Patch) 1 patch Q7D TRANSDERM Last administered on 12/29/16 11:18; Admin Dose 1 PATCH; Start 12/29/16 at 10:00 Folic Acid (Folic Acid) 1 mg DAILY PO Last administered on 01/03/17 09:46; Admin Dose 1 MG; Start 12/29/16 at 09:00 Gabapentin (Neurontin) 100 mg TID PO Last administered on 01/03/17 09:45; Admin Dose 100 MG; Start 12/29/16 at 09:00 Hydralazine HCl (Apresoline) 100 mg Q8 PO Last administered on 01/03/17 06:11; Admin Dose 100 MG; Start 12/29/16 at 14:00 Isosorbide Dinitrate (Isordil) 10 mg TID PO Last administered on 01/03/17 09:47 ; Admin Dose 10 MG; Start 12/29/16 at 09:00 Nifedipine (Procardia Xl) 60 mg DAILY PO Last administered on 01/03/17 09:46; Admin Dose 60 MG; Start 12/29/16 at 09:00 Promethazine HCl (Phenergan) 25 mg Q6H PRN PO VOMITTING Last administered on 20:24; Admin Dose 25 MG; Start 12/29/16 at 09:00 Topiramate 25 mg 25 mg DAILY PO Last administered on 01/03/17 09:47; Admin Dose 25 MG; Start 12/29/16 at 09:00 Dextrose/Sodium Chloride (D5-1/2ns) 1,000 ml @ 40 mls/hr Q24H IV Last administered on 01/02/17 13:52; Admin Dose 40 MLS/HR; Start 12/29/16 at 08:30 Ondansetron HCl (Zofran Inj) 4 mg Q6H PRN IV NAUSEA AND/OR VOMITING; Start 12/29 at 08:30 Acetaminophen (Tylenol Tab) 650 mg Q6H PRN PO PAIN LEVEL 1-3 OR FEVER Last administered on 01/01/17 13:15; Admin Dose 650 MG; Start 12/29/16 at 08:30 Metoclopramide HCl (Reglan) 10 mg Q6 PRN IV nausea/vommiting; Start 12/29/16 at 14:00 Hydralazine HCl 10 mg 10 mg Q6 PRN IV sbp>170 Last administered on 01/02/17 00: 31; Admin Dose 10 MG; Start 12/29/16 at 14:00 Sodium Chloride (NS) 1,000 ml @ 0 mls/hr Q0M PRN IV TO KEEP SBP ABOVE 90; Start 12/29/16 at 13:45 Miscellaneous Information 1 ea NOTE XX ; Start 12/29/16 at 14:30 Glucose (Glutose) 15 gm Q15M PRN PO DECREASED GLUCOSE; Start 12/29/16 at 14:30 Glucose (Glutose) 22.5 gm Q15M PRN PO DECREASED GLUCOSE; Start 12/29/16 at 14:30 Dextrose (D50w Syringe) 25 ml Q15M PRN IV DECREASED GLUCOSE; Start 12/29/16 at 14:30 Dextrose (D50w Syringe) 50 ml Q15M PRN IV DECREASED GLUCOSE; Start 12/29/16 at 14:30 Glucagon (Glucagen) 1 mg Q15M PRN IM DECREASED GLUCOSE; Start 12/29/16 at 14:30 Glucose (Glutose) 15 gm Q15M PRN BUCCAL DECREASED GLUCOSE; Start 12/29/16 at 14: 30 Morphine Sulfate (morphine) 2 mg Q4H PRN IV PAIN; Start 12/29/16 at 16:00 Vancomycin HCl 125 mg 125 mg Q6 PO Last administered on 01/03/17 06:11; Admin Dose 125 MG; Start 12/30/16 at 12:00 Metronidazole (Flagyl 500 Mg (Pmx)) 100 ml @ 100 mls/hr Q8 IVPB Last administered on 01/03/17 06:11; Admin Dose 100 MLS/HR; Start 12/30/16 at 14:00 Diagnostic Test (Pha) (Accu-Chek) 1 ea 02 XX Last administered on 01/01/17 01: 25; Admin Dose 1 EA; Start 12/31/16 at 02:00 Metoprolol Tartrate (Lopressor) 25 mg BID PO Last administered on 01/03/17 09: 47; Admin Dose 25 MG; Start 12/31/16 at 21:00 Metoclopramide HCl (Reglan) 5 mg Q6 IV Last administered on 01/03/17 06:11; Admin Dose 5 MG; Start 01/02/17 at 18:00 Nifedipine (Procardia Xl) 30 mg HS PO Last administered on 01/02/17 20:58; Admin Dose 30 MG; Start 01/02/17 at 21:00 Guaifenesin (Robitussin Liquid Cup) 100 mg Q6H PRN PO COUGH Last administered on 01/03/17 00:22; Admin Dose 100 MG; Start 01/02/17 at 21:30 Fluconazole (Diflucan) 100 mg DAILY GTB ; Start 01/03/17 at 14:00 ERIK PERALES Jan 03, 2017 14:25
[2017-01-03] MEDS: FLUCONAZOLE 100 MG TAB GTB SCH (14:30)
--- NOTE | 2017-01-03 16:06 | CONS ---
Date/Time of Note Date/Time of Note DATE: 01/03/17 TIME: 16:03 Assessment/Plan Assessment/Plan Additional Assessment/Plan Colitis Cardiomyopathy Hypertension Abnormal electrocardiogram Dyslipidemia Diabetes Anemia Clinically and hemodynamically stable Continue Metoprolol and Nifedipine Continue ASA Continue Insulin Continue Lipitor HD as scheduled Consultation Date/Type/Reason Admit Date/Time Dec 29, 2016 at 03:15 Constitutional: no complaints Eyes: no complaints ENT: no complaints Respiratory: no complaints Cardiovascular: no complaints Gastrointestinal: pain Psychological: nl mood/affect, no complaints Past Medical History Medical History: congestive heart failure, coronary artery disease, diabetes, hypertension, renal disease Past Surgical History Past Surgical Hx: endoscopy Social History Alcohol Use: none Smoking Status: Never smoker Drug Use: none Exam/Review of Systems Vital Signs Vitals Vital Signs Date Time Temp Pulse Resp B/P Pulse Ox O2 Delivery O2 Flow Rate FiO2 01/03/17 13:30 60 01/03/17 13:30 20 01/03/17 11:27 97.9 117/56 96 01/02/17 12:37 Nasal Cannula 2.0 Intake and Output 01/02/17 01/02/17 01/03/17 15:00 23:00 07:00 Intake Total 0 ml 580 ml 500 ml Balance 0 ml 580 ml 500 ml Exam Constitutional: alert Psych: no complaints Head: atraumatic, normocephalic Neck: non-tender, supple Respiratory: clear to auscultation Cardiovascular: regular rate and rhythm Gastrointestinal: nl liver, spleen, non-tender, soft Extremities: normal pulses Results Result Diagram: 01/01/17 0826 01/01/17 0826 Results 24 hrs Laboratory Tests Test 01/02/17 17:35 01/02/17 20:55 01/03/17 06:40 01/03/17 08:08 Bedside Glucose 124 105 100 Lab Scanned Report BLOOD TRANSFUSION Test 01/03/17 14:16 Bedside Glucose 129 Medications Medications Current Medications Aspirin (Aspirin) 81 mg DAILY PO Last administered on 01/03/17 09:46; Admin Dose 81 MG; Start 12/29/16 at 09:00 Atorvastatin Calcium (Lipitor) 40 mg HS PO Last administered on 01/02/17 20:57 ; Admin Dose 40 MG; Start 12/29/16 at 21:00 Latanoprost (Xalatan) 1 drop HS BOTH EYES Last administered on 01/02/17 20:57; Admin Dose 1 DROP; Start 12/29/16 at 21:00 Clonidine HCl (Catapres-Tts 1 Patch) 1 patch Q7D TRANSDERM Last administered on 12/29/16 11:18; Admin Dose 1 PATCH; Start 12/29/16 at 10:00 Folic Acid (Folic Acid) 1 mg DAILY PO Last administered on 01/03/17 09:46; Admin Dose 1 MG; Start 12/29/16 at 09:00 Gabapentin (Neurontin) 100 mg TID PO Last administered on 01/03/17 14:29; Admin Dose 100 MG; Start 12/29/16 at 09:00 Hydralazine HCl (Apresoline) 100 mg Q8 PO Last administered on 01/03/17 14:30; Admin Dose 100 MG; Start 12/29/16 at 14:00 Isosorbide Dinitrate (Isordil) 10 mg TID PO Last administered on 01/03/17 14:29 ; Admin Dose 10 MG; Start 12/29/16 at 09:00 Nifedipine (Procardia Xl) 60 mg DAILY PO Last administered on 01/03/17 09:46; Admin Dose 60 MG; Start 12/29/16 at 09:00 Promethazine HCl (Phenergan) 25 mg Q6H PRN PO VOMITTING Last administered on 20:24; Admin Dose 25 MG; Start 12/29/16 at 09:00 Topiramate 25 mg 25 mg DAILY PO Last administered on 01/03/17 09:47; Admin Dose 25 MG; Start 12/29/16 at 09:00 Dextrose/Sodium Chloride (D5-1/2ns) 1,000 ml @ 40 mls/hr Q24H IV Last administered on 01/02/17 13:52; Admin Dose 40 MLS/HR; Start 12/29/16 at 08:30 Ondansetron HCl (Zofran Inj) 4 mg Q6H PRN IV NAUSEA AND/OR VOMITING; Start 12/29 at 08:30 Acetaminophen (Tylenol Tab) 650 mg Q6H PRN PO PAIN LEVEL 1-3 OR FEVER Last administered on 01/01/17 13:15; Admin Dose 650 MG; Start 12/29/16 at 08:30 Metoclopramide HCl (Reglan) 10 mg Q6 PRN IV nausea/vommiting; Start 12/29/16 at 14:00 Hydralazine HCl 10 mg 10 mg Q6 PRN IV sbp>170 Last administered on 01/02/17 00: 31; Admin Dose 10 MG; Start 12/29/16 at 14:00 Sodium Chloride (NS) 1,000 ml @ 0 mls/hr Q0M PRN IV TO KEEP SBP ABOVE 90; Start 12/29/16 at 13:45 Miscellaneous Information 1 ea NOTE XX ; Start 12/29/16 at 14:30 Glucose (Glutose) 15 gm Q15M PRN PO DECREASED GLUCOSE; Start 12/29/16 at 14:30 Glucose (Glutose) 22.5 gm Q15M PRN PO DECREASED GLUCOSE; Start 12/29/16 at 14:30 Dextrose (D50w Syringe) 25 ml Q15M PRN IV DECREASED GLUCOSE; Start 12/29/16 at 14:30 Dextrose (D50w Syringe) 50 ml Q15M PRN IV DECREASED GLUCOSE; Start 12/29/16 at 14:30 Glucagon (Glucagen) 1 mg Q15M PRN IM DECREASED GLUCOSE; Start 12/29/16 at 14:30 Glucose (Glutose) 15 gm Q15M PRN BUCCAL DECREASED GLUCOSE; Start 12/29/16 at 14: 30 Morphine Sulfate (morphine) 2 mg Q4H PRN IV PAIN; Start 12/29/16 at 16:00 Vancomycin HCl 125 mg 125 mg Q6 PO Last administered on 01/03/17 14:28; Admin Dose 125 MG; Start 12/30/16 at 12:00 Metronidazole (Flagyl 500 Mg (Pmx)) 100 ml @ 100 mls/hr Q8 IVPB Last administered on 01/03/17 14:28; Admin Dose 100 MLS/HR; Start 12/30/16 at 14:00 Diagnostic Test (Pha) (Accu-Chek) 1 ea 02 XX Last administered on 01/01/17 01: 25; Admin Dose 1 EA; Start 12/31/16 at 02:00 Metoprolol Tartrate (Lopressor) 25 mg BID PO Last administered on 01/03/17 09: 47; Admin Dose 25 MG; Start 12/31/16 at 21:00 Metoclopramide HCl (Reglan) 5 mg Q6 IV Last administered on 01/03/17 14:28; Admin Dose 5 MG; Start 01/02/17 at 18:00 Nifedipine (Procardia Xl) 30 mg HS PO Last administered on 01/02/17 20:58; Admin Dose 30 MG; Start 01/02/17 at 21:00 Guaifenesin (Robitussin Liquid Cup) 100 mg Q6H PRN PO COUGH Last administered on 01/03/17 00:22; Admin Dose 100 MG; Start 01/02/17 at 21:30 Fluconazole (Diflucan) 100 mg DAILY GTB Last administered on 01/03/17 14:30; Admin Dose 100 MG; Start 01/03/17 at 14:00 ALEJANDRA SHOEMAKER M.D. Jan 03, 2017 16:06
[2017-01-03] MEDS: NIFEdipine (XL) 30 MG TAB PO SCH (20:48)
[2017-01-03] MEDS: ATORVASTATIN 40 MG TAB PO SCH (20:48)
[2017-01-03] MEDS: LATANOPROST 0.005% 2.5 ML OPH BOTH EYES SCH ×2 (20:54→21:00)
[2017-01-03] MEDS: ACETAMINOPHEN 325 MG TAB PO PRN (21:17)
[2017-01-04] VITALS (13 sets, daily range): BP systolic 95–158; BP diastolic 50–71; PULSE 58–68; RESP 15–20
[2017-01-04] MEDS: VANCOMYCIN HCL 250 MG/5ML POSYG PO SCH ×4 (01:05→17:04)
[2017-01-04] MEDS: METOCLOPRAMIDE 10 MG INJ IV SCH ×4 (01:05→17:04)
[2017-01-04] MEDS: ACCU-CHEK XX SCH (02:00)
[2017-01-04] MEDS: LATANOPROST 0.005% 2.5 ML OPH BOTH EYES SCH ×2 (03:16→21:03)
[2017-01-04] MEDS: metroNIDAZOLE 500 MG/NS (PMX) 100 ML IVPB SCH ×3 (05:21→21:06)
[2017-01-04] MEDS: INSULIN ASPART [NOVOLOG] 3 ML PEN SC SCH ×4 (08:00→20:56)
[2017-01-04 08:15] LABS: ALBUMIN/GLOBULIN RATIO 1.25; CALCIUM 7.6 mg/dl (8.4-10.2); CREATININE 4.33 mg/dl (0.44-1.00); POTASSIUM 3.8 mmol/L (3.5-5.1); TOTAL PROTEIN 5.4 g/dl (6.1-8.1)
[2017-01-04] MEDS: DEXTROSE 5%-0.45% NACL 1,000 ML IV SCH (08:21)
[2017-01-04] MEDS: PANTOPRAZOLE 40 MG INJ IV SCH ×2 (08:28→17:04)
[2017-01-04] MEDS: TOPIRAMATE 25 MG TAB PO SCH (08:29)
[2017-01-04] MEDS: ASPIRIN 81 MG TAB PO SCH (08:29)
[2017-01-04] MEDS: GABAPENTIN 100 MG CAP PO SCH ×3 (08:29→20:58)
[2017-01-04] MEDS: FOLIC ACID 1 MG TAB PO SCH (08:29)
[2017-01-04] MEDS: FLUCONAZOLE 100 MG TAB GTB SCH (08:29)
[2017-01-04] MEDS: ISOSORBIDE DINITRATE 10 MG TAB PO SCH ×3 (08:32→20:59)
[2017-01-04] MEDS: NIFEdipine (XL) 60 MG TAB PO SCH (08:32)
[2017-01-04] MEDS: METOPROLOL 25 MG TAB PO SCH ×2 (08:33→20:57)
--- NOTE | 2017-01-04 13:15 | CONS ---
Date/Time of Note Date/Time of Note DATE: 01/04/17 TIME: 13:13 Assessment/Plan Assessment/Plan Additional Assessment/Plan Colitis DHF Hypertension Abnormal electrocardiogram Dyslipidemia Diabetes Anemia Clinically and hemodynamically stable Continue Metoprolol and Nifedipine Continue ASA Continue Insulin Continue Lipitor HD as scheduled Consultation Date/Type/Reason Admit Date/Time Dec 29, 2016 at 03:15 Initial Consult Date 12/29/16 Type of Consultation: cardiology Referring Provider: MICHELLE MCDANIEL MD Exam/Review of Systems Vital Signs Vitals Vital Signs Date Time Temp Pulse Resp B/P Pulse Ox O2 Delivery O2 Flow Rate FiO2 01/04/17 12:27 97.3 65 20 140/63 96 01/02/17 12:37 Nasal Cannula 2.0 Intake and Output 01/03/17 01/03/17 01/04/17 15:00 23:00 07:00 Intake Total 700 ml 1200 ml Output Total 4500 ml Balance -3800 ml 1200 ml Exam Head: atraumatic, normocephalic Neck: non-tender, supple Respiratory: clear to auscultation Cardiovascular: regular rate and rhythm Gastrointestinal: nl liver, spleen, soft Extremities: normal pulses Results Result Diagram: 01/01/17 0826 01/04/17 0657 Results 24 hrs Laboratory Tests Test 01/03/17 14:16 01/03/17 17:08 01/03/17 20:46 01/04/17 06:57 Bedside Glucose 129 160 119 Sodium Level 133 L Potassium Level 3.8 Chloride Level 100 Carbon Dioxide Level 27 Anion Gap 10 Blood Urea Nitrogen 15 Creatinine 4.33 H Glucose Level 96 Calcium Level 7.6 L Total Bilirubin 0.0 L Direct Bilirubin 0.00 Indirect Bilirubin 0.0 Aspartate Amino Transf (AST/SGOT) 22 Alanine Aminotransferase (ALT/SGPT) 24 Alkaline Phosphatase 78 Total Protein 5.4 L Albumin 3.0 L Globulin 2.40 Albumin/Globulin Ratio 1.25 Test 01/04/17 07:44 01/04/17 12:10 Bedside Glucose 100 101 Medications Medications Current Medications Aspirin (Aspirin) 81 mg DAILY PO Last administered on 01/04/17 08:29; Admin Dose 81 MG; Start 12/29/16 at 09:00 Atorvastatin Calcium (Lipitor) 40 mg HS PO Last administered on 01/03/17 20:48 ; Admin Dose 40 MG; Start 12/29/16 at 21:00 Latanoprost (Xalatan) 1 drop HS BOTH EYES Last administered on 01/03/17 21:00; Admin Dose 1 DROP; Start 12/29/16 at 21:00 Clonidine HCl (Catapres-Tts 1 Patch) 1 patch Q7D TRANSDERM Last administered on 12/29/16 11:18; Admin Dose 1 PATCH; Start 12/29/16 at 10:00 Folic Acid (Folic Acid) 1 mg DAILY PO Last administered on 01/04/17 08:29; Admin Dose 1 MG; Start 12/29/16 at 09:00 Gabapentin (Neurontin) 100 mg TID PO Last administered on 01/04/17 12:46; Admin Dose 100 MG; Start 12/29/16 at 09:00 Hydralazine HCl (Apresoline) 100 mg Q8 PO Last administered on 01/04/17 05:22 ; Admin Dose 100 MG; Start 12/29/16 at 14:00 Isosorbide Dinitrate (Isordil) 10 mg TID PO Last administered on 01/04/17 12: 46; Admin Dose 10 MG; Start 12/29/16 at 09:00 Nifedipine (Procardia Xl) 60 mg DAILY PO Last administered on 01/04/17 08:32; Admin Dose 60 MG; Start 12/29/16 at 09:00 Promethazine HCl (Phenergan) 25 mg Q6H PRN PO VOMITTING Last administered on 20:24; Admin Dose 25 MG; Start 12/29/16 at 09:00 Topiramate 25 mg 25 mg DAILY PO Last administered on 01/04/17 08:29; Admin Dose 25 MG; Start 12/29/16 at 09:00 Dextrose/Sodium Chloride (D5-1/2ns) 1,000 ml @ 40 mls/hr Q24H IV Last administered on 01/02/17 13:52; Admin Dose 40 MLS/HR; Start 12/29/16 at 08:30 Ondansetron HCl (Zofran Inj) 4 mg Q6H PRN IV NAUSEA AND/OR VOMITING; Start 12/29 at 08:30 Acetaminophen (Tylenol Tab) 650 mg Q6H PRN PO PAIN LEVEL 1-3 OR FEVER Last administered on 01/03/17 21:17; Admin Dose 650 MG; Start 12/29/16 at 08:30 Metoclopramide HCl (Reglan) 10 mg Q6 PRN IV nausea/vommiting; Start 12/29/16 at 14:00 Hydralazine HCl 10 mg 10 mg Q6 PRN IV sbp>170 Last administered on 01/02/17 00: 31; Admin Dose 10 MG; Start 12/29/16 at 14:00 Sodium Chloride (NS) 1,000 ml @ 0 mls/hr Q0M PRN IV TO KEEP SBP ABOVE 90; Start 12/29/16 at 13:45 Miscellaneous Information 1 ea NOTE XX ; Start 12/29/16 at 14:30 Glucose (Glutose) 15 gm Q15M PRN PO DECREASED GLUCOSE; Start 12/29/16 at 14:30 Glucose (Glutose) 22.5 gm Q15M PRN PO DECREASED GLUCOSE; Start 12/29/16 at 14:30 Dextrose (D50w Syringe) 25 ml Q15M PRN IV DECREASED GLUCOSE; Start 12/29/16 at 14:30 Dextrose (D50w Syringe) 50 ml Q15M PRN IV DECREASED GLUCOSE; Start 12/29/16 at 14:30 Glucagon (Glucagen) 1 mg Q15M PRN IM DECREASED GLUCOSE; Start 12/29/16 at 14:30 Glucose (Glutose) 15 gm Q15M PRN BUCCAL DECREASED GLUCOSE; Start 12/29/16 at 14: 30 Morphine Sulfate (morphine) 2 mg Q4H PRN IV PAIN; Start 12/29/16 at 16:00 Vancomycin HCl 125 mg 125 mg Q6 PO Last administered on 01/04/17 12:45; Admin Dose 125 MG; Start 12/30/16 at 12:00 Metronidazole (Flagyl 500 Mg (Pmx)) 100 ml @ 100 mls/hr Q8 IVPB Last administered on 01/04/17 05:21; Admin Dose 100 MLS/HR; Start 12/30/16 at 14:00 Diagnostic Test (Pha) (Accu-Chek) 1 ea 02 XX Last administered on 01/01/17 01: 25; Admin Dose 1 EA; Start 12/31/16 at 02:00 Metoprolol Tartrate (Lopressor) 25 mg BID PO Last administered on 01/04/17 08: 33; Admin Dose 25 MG; Start 12/31/16 at 21:00 Metoclopramide HCl (Reglan) 5 mg Q6 IV Last administered on 01/04/17 12:46; Admin Dose 5 MG; Start 01/02/17 at 18:00 Nifedipine (Procardia Xl) 30 mg HS PO Last administered on 01/03/17 20:48; Admin Dose 30 MG; Start 01/02/17 at 21:00 Guaifenesin (Robitussin Liquid Cup) 100 mg Q6H PRN PO COUGH Last administered on 01/03/17 00:22; Admin Dose 100 MG; Start 01/02/17 at 21:30 Fluconazole (Diflucan) 100 mg DAILY GTB Last administered on 01/04/17 08:29; Admin Dose 100 MG; Start 01/03/17 at 14:00 ALEJANDRA SHOEMAKER M.D. Jan 04, 2017 13:14
[2017-01-04] MEDS: ACETAMINOPHEN 325 MG TAB PO PRN (14:32)
--- NOTE | 2017-01-04 15:13 | CONS ---
Date/Time of Note Date/Time of Note DATE: 01/04/17 TIME: 15:12 Assessment/Plan Assessment/Plan Additional Assessment/Plan Additional Assessment/Plan 1. anemia 2. elevated troponin secondary to renal failure patient's 2D echo was good with good ejection fraction 3. intractable nausea and vomiting 4. generalized abdominal pain 5. CT scan showing colitis: ddx ischemic > infectious > inflammatory 6. diarrhea secondary to C. difficile colitis 7. Diabetic gastroparesis 8. Esophageal moniliasis Recommendations: Vancomycin 125 mg p.o. every 6 hour Advance diet Diflucan 100 mg daily Reglan 5 mg IV push 3 times daily for gastroparesis Continue present care Consultation Date/Type/Reason Admit Date/Time Dec 29, 2016 at 03:15 Initial Consult Date 12/29/16 Type of Consultation: cardiology Referring Provider: MICHELLE MCDANIEL MD 24 HR Interval Summary Free Text/Dictation No abdominal pain no nausea vomiting. Constitutional: improved, no complaints Exam/Review of Systems Vital Signs Vitals Vital Signs Date Time Temp Pulse Resp B/P Pulse Ox O2 Delivery O2 Flow Rate FiO2 01/04/17 12:27 97.3 65 20 140/63 96 01/02/17 12:37 Nasal Cannula 2.0 Intake and Output 01/03/17 01/03/17 01/04/17 15:00 23:00 07:00 Intake Total 700 ml 1200 ml Output Total 4500 ml Balance -3800 ml 1200 ml Exam Constitutional: alert, oriented, well developed Psych: nl mood/affect, no complaints Head: atraumatic, normocephalic Eyes: EOMI, PERRL, nl conjunctiva, nl lids, nl sclera ENMT: nl external ears & nose, nl lips & teeth, nl nasal mucosa & septum Neck: non-tender, supple Respiratory: clear to auscultation, normal air movement Cardiovascular: nl pulses, regular rate and rhythm Gastrointestinal: nl liver, spleen, non-tender, soft Musculoskeletal: nl extremities to inspection, nl gait and stance Extremities: normal pulses Neurological: TRAIN CALLER II-XII intact, nl mental status, nl speech, nl strength Skin: nl turgor, No rash or lesions Lymph: nl lymph nodes Results Result Diagram: 01/01/17 0826 01/04/17 0657 Results 24 hrs Laboratory Tests Test 01/03/17 17:08 01/03/17 20:46 01/04/17 06:57 01/04/17 07:44 Bedside Glucose 160 119 100 Sodium Level 133 L Potassium Level 3.8 Chloride Level 100 Carbon Dioxide Level 27 Anion Gap 10 Blood Urea Nitrogen 15 Creatinine 4.33 H Glucose Level 96 Calcium Level 7.6 L Total Bilirubin 0.0 L Direct Bilirubin 0.00 Indirect Bilirubin 0.0 Aspartate Amino Transf (AST/SGOT) 22 Alanine Aminotransferase (ALT/SGPT) 24 Alkaline Phosphatase 78 Total Protein 5.4 L Albumin 3.0 L Globulin 2.40 Albumin/Globulin Ratio 1.25 Test 01/04/17 12:10 Bedside Glucose 101 Medications Medications Current Medications Aspirin (Aspirin) 81 mg DAILY PO Last administered on 01/04/17 08:29; Admin Dose 81 MG; Start 12/29/16 at 09:00 Atorvastatin Calcium (Lipitor) 40 mg HS PO Last administered on 01/03/17 20:48 ; Admin Dose 40 MG; Start 12/29/16 at 21:00 Latanoprost (Xalatan) 1 drop HS BOTH EYES Last administered on 01/03/17 21:00; Admin Dose 1 DROP; Start 12/29/16 at 21:00 Clonidine HCl (Catapres-Tts 1 Patch) 1 patch Q7D TRANSDERM Last administered on 12/29/16 11:18; Admin Dose 1 PATCH; Start 12/29/16 at 10:00 Folic Acid (Folic Acid) 1 mg DAILY PO Last administered on 01/04/17 08:29; Admin Dose 1 MG; Start 12/29/16 at 09:00 Gabapentin (Neurontin) 100 mg TID PO Last administered on 01/04/17 12:46; Admin Dose 100 MG; Start 12/29/16 at 09:00 Hydralazine HCl (Apresoline) 100 mg Q8 PO Last administered on 01/04/17 14:32 ; Admin Dose 100 MG; Start 12/29/16 at 14:00 Isosorbide Dinitrate (Isordil) 10 mg TID PO Last administered on 01/04/17 12: 46; Admin Dose 10 MG; Start 12/29/16 at 09:00 Nifedipine (Procardia Xl) 60 mg DAILY PO Last administered on 01/04/17 08:32; Admin Dose 60 MG; Start 12/29/16 at 09:00 Promethazine HCl (Phenergan) 25 mg Q6H PRN PO VOMITTING Last administered on 20:24; Admin Dose 25 MG; Start 12/29/16 at 09:00 Topiramate 25 mg 25 mg DAILY PO Last administered on 01/04/17 08:29; Admin Dose 25 MG; Start 12/29/16 at 09:00 Dextrose/Sodium Chloride (D5-1/2ns) 1,000 ml @ 40 mls/hr Q24H IV Last administered on 01/02/17 13:52; Admin Dose 40 MLS/HR; Start 12/29/16 at 08:30 Ondansetron HCl (Zofran Inj) 4 mg Q6H PRN IV NAUSEA AND/OR VOMITING; Start 12/29 at 08:30 Acetaminophen (Tylenol Tab) 650 mg Q6H PRN PO PAIN LEVEL 1-3 OR FEVER Last administered on 01/04/17 14:32; Admin Dose 650 MG; Start 12/29/16 at 08:30 Metoclopramide HCl (Reglan) 10 mg Q6 PRN IV nausea/vommiting; Start 12/29/16 at 14:00 Hydralazine HCl 10 mg 10 mg Q6 PRN IV sbp>170 Last administered on 01/02/17 00: 31; Admin Dose 10 MG; Start 12/29/16 at 14:00 Sodium Chloride (NS) 1,000 ml @ 0 mls/hr Q0M PRN IV TO KEEP SBP ABOVE 90; Start 12/29/16 at 13:45 Miscellaneous Information 1 ea NOTE XX ; Start 12/29/16 at 14:30 Glucose (Glutose) 15 gm Q15M PRN PO DECREASED GLUCOSE; Start 12/29/16 at 14:30 Glucose (Glutose) 22.5 gm Q15M PRN PO DECREASED GLUCOSE; Start 12/29/16 at 14:30 Dextrose (D50w Syringe) 25 ml Q15M PRN IV DECREASED GLUCOSE; Start 12/29/16 at 14:30 Dextrose (D50w Syringe) 50 ml Q15M PRN IV DECREASED GLUCOSE; Start 12/29/16 at 14:30 Glucagon (Glucagen) 1 mg Q15M PRN IM DECREASED GLUCOSE; Start 12/29/16 at 14:30 Glucose (Glutose) 15 gm Q15M PRN BUCCAL DECREASED GLUCOSE; Start 12/29/16 at 14: 30 Morphine Sulfate (morphine) 2 mg Q4H PRN IV PAIN; Start 12/29/16 at 16:00 Vancomycin HCl 125 mg 125 mg Q6 PO Last administered on 01/04/17 12:45; Admin Dose 125 MG; Start 12/30/16 at 12:00 Metronidazole (Flagyl 500 Mg (Pmx)) 100 ml @ 100 mls/hr Q8 IVPB Last administered on 01/04/17 14:33; Admin Dose 100 MLS/HR; Start 12/30/16 at 14:00 Diagnostic Test (Pha) (Accu-Chek) 1 ea 02 XX Last administered on 01/01/17 01: 25; Admin Dose 1 EA; Start 12/31/16 at 02:00 Metoprolol Tartrate (Lopressor) 25 mg BID PO Last administered on 01/04/17 08: 33; Admin Dose 25 MG; Start 12/31/16 at 21:00 Metoclopramide HCl (Reglan) 5 mg Q6 IV Last administered on 01/04/17 12:46; Admin Dose 5 MG; Start 01/02/17 at 18:00 Nifedipine (Procardia Xl) 30 mg HS PO Last administered on 01/03/17 20:48; Admin Dose 30 MG; Start 01/02/17 at 21:00 Guaifenesin (Robitussin Liquid Cup) 100 mg Q6H PRN PO COUGH Last administered on 01/03/17 00:22; Admin Dose 100 MG; Start 01/02/17 at 21:30 Fluconazole (Diflucan) 100 mg DAILY GTB Last administered on 01/04/17 08:29; Admin Dose 100 MG; Start 01/03/17 at 14:00 STU ROCKWELL MD Jan 04, 2017 15:13
[2017-01-04] MEDS ORDERED: HYDROCODONE/APAP (5/325) TAB PO PRN (18:00)
--- NOTE | 2017-01-04 18:56 | CONS ---
Date/Time of Note Date/Time of Note DATE: 01/04/17 TIME: 18:52 Assessment/Plan Assessment/Plan Chief Complaint/Hosp Course Chief Complaint/Hosp Course s/p EGD:1. Severe gastroparesis 2. Esophageal moniliasis 3. Antral lesion polypoid 3 cm in diameter 4. Abdominal pain, better 5. ANEMIA 6. Elevated troponin; however, the patient denies any chest pain. The nonspecific ST- and T-wave changes. 7. End-stage renal disease, on hemodialysis Thursday, Thursday, Thursday. 8. Diabetes. 9. Hypertension, 8. hx of Chronic abdominal pain. 10. History of chronic constipation. 11. C DIFF Problems: Assessment/Plan 1. continue HD. 2. continue Fluconazole/metronidazole and vanco 3 AM labs Problems: Consultation Date/Type/Reason Admit Date/Time Dec 29, 2016 at 03:15 Initial Consult Date 12/29/16 Type of Consultation: Nephrology Referring Provider: MICHELLE MCDANIEL MD 24 HR Interval Summary Free Text/Dictation Pain is there sometimes Exam/Review of Systems Vital Signs Vitals Vital Signs Date Time Temp Pulse Resp B/P Pulse Ox O2 Delivery O2 Flow Rate FiO2 01/04/17 16:21 97.5 66 20 102/50 98 01/02/17 12:37 Nasal Cannula 2.0 Intake and Output 01/03/17 01/03/17 01/04/17 15:00 23:00 07:00 Intake Total 700 ml 1200 ml Output Total 4500 ml Balance -3800 ml 1200 ml Exam Constitutional: alert, oriented ENMT: nl external ears & nose Neck: supple Respiratory: diminished breath sounds Cardiovascular: regular rate and rhythm Abdomen:soft, non tender Results Result Diagram: 01/01/17 0826 01/04/17 0657 Results 24 hrs Laboratory Tests Test 01/03/17 20:46 01/04/17 06:57 01/04/17 07:44 01/04/17 12:10 Bedside Glucose 119 100 101 Sodium Level 133 L Potassium Level 3.8 Chloride Level 100 Carbon Dioxide Level 27 Anion Gap 10 Blood Urea Nitrogen 15 Creatinine 4.33 H Glucose Level 96 Calcium Level 7.6 L Total Bilirubin 0.0 L Direct Bilirubin 0.00 Indirect Bilirubin 0.0 Aspartate Amino Transf (AST/SGOT) 22 Alanine Aminotransferase (ALT/SGPT) 24 Alkaline Phosphatase 78 Total Protein 5.4 L Albumin 3.0 L Globulin 2.40 Albumin/Globulin Ratio 1.25 Test 01/04/17 17:01 Bedside Glucose 141 Medications Medications Current Medications Aspirin (Aspirin) 81 mg DAILY PO Last administered on 01/04/17 08:29; Admin Dose 81 MG; Start 12/29/16 at 09:00 Atorvastatin Calcium (Lipitor) 40 mg HS PO Last administered on 01/03/17 20:48 ; Admin Dose 40 MG; Start 12/29/16 at 21:00 Latanoprost (Xalatan) 1 drop HS BOTH EYES Last administered on 01/03/17 21:00; Admin Dose 1 DROP; Start 12/29/16 at 21:00 Clonidine HCl (Catapres-Tts 1 Patch) 1 patch Q7D TRANSDERM Last administered on 12/29/16 11:18; Admin Dose 1 PATCH; Start 12/29/16 at 10:00 Folic Acid (Folic Acid) 1 mg DAILY PO Last administered on 01/04/17 08:29; Admin Dose 1 MG; Start 12/29/16 at 09:00 Gabapentin (Neurontin) 100 mg TID PO Last administered on 01/04/17 12:46; Admin Dose 100 MG; Start 12/29/16 at 09:00 Hydralazine HCl (Apresoline) 100 mg Q8 PO Last administered on 01/04/17 14:32 ; Admin Dose 100 MG; Start 12/29/16 at 14:00 Isosorbide Dinitrate (Isordil) 10 mg TID PO Last administered on 01/04/17 12: 46; Admin Dose 10 MG; Start 12/29/16 at 09:00 Nifedipine (Procardia Xl) 60 mg DAILY PO Last administered on 01/04/17 08:32; Admin Dose 60 MG; Start 12/29/16 at 09:00 Promethazine HCl (Phenergan) 25 mg Q6H PRN PO VOMITTING Last administered on 20:24; Admin Dose 25 MG; Start 12/29/16 at 09:00 Topiramate 25 mg 25 mg DAILY PO Last administered on 01/04/17 08:29; Admin Dose 25 MG; Start 12/29/16 at 09:00 Dextrose/Sodium Chloride (D5-1/2ns) 1,000 ml @ 40 mls/hr Q24H IV Last administered on 01/02/17 13:52; Admin Dose 40 MLS/HR; Start 12/29/16 at 08:30 Ondansetron HCl (Zofran Inj) 4 mg Q6H PRN IV NAUSEA AND/OR VOMITING; Start 12/29 at 08:30 Acetaminophen (Tylenol Tab) 650 mg Q6H PRN PO PAIN LEVEL 1-3 OR FEVER Last administered on 01/04/17 14:32; Admin Dose 650 MG; Start 12/29/16 at 08:30 Metoclopramide HCl (Reglan) 10 mg Q6 PRN IV nausea/vommiting; Start 12/29/16 at 14:00 Hydralazine HCl 10 mg 10 mg Q6 PRN IV sbp>170 Last administered on 01/02/17 00: 31; Admin Dose 10 MG; Start 12/29/16 at 14:00 Sodium Chloride (NS) 1,000 ml @ 0 mls/hr Q0M PRN IV TO KEEP SBP ABOVE 90; Start 12/29/16 at 13:45 Miscellaneous Information 1 ea NOTE XX ; Start 12/29/16 at 14:30 Glucose (Glutose) 15 gm Q15M PRN PO DECREASED GLUCOSE; Start 12/29/16 at 14:30 Glucose (Glutose) 22.5 gm Q15M PRN PO DECREASED GLUCOSE; Start 12/29/16 at 14:30 Dextrose (D50w Syringe) 25 ml Q15M PRN IV DECREASED GLUCOSE; Start 12/29/16 at 14:30 Dextrose (D50w Syringe) 50 ml Q15M PRN IV DECREASED GLUCOSE; Start 12/29/16 at 14:30 Glucagon (Glucagen) 1 mg Q15M PRN IM DECREASED GLUCOSE; Start 12/29/16 at 14:30 Glucose (Glutose) 15 gm Q15M PRN BUCCAL DECREASED GLUCOSE; Start 12/29/16 at 14: 30 Morphine Sulfate (morphine) 2 mg Q4H PRN IV PAIN; Start 12/29/16 at 16:00 Vancomycin HCl 125 mg 125 mg Q6 PO Last administered on 01/04/17 17:04; Admin Dose 125 MG; Start 12/30/16 at 12:00 Metronidazole (Flagyl 500 Mg (Pmx)) 100 ml @ 100 mls/hr Q8 IVPB Last administered on 01/04/17 14:33; Admin Dose 100 MLS/HR; Start 12/30/16 at 14:00 Diagnostic Test (Pha) (Accu-Chek) 1 ea 02 XX Last administered on 01/01/17 01: 25; Admin Dose 1 EA; Start 12/31/16 at 02:00 Metoprolol Tartrate (Lopressor) 25 mg BID PO Last administered on 01/04/17 08: 33; Admin Dose 25 MG; Start 12/31/16 at 21:00 Metoclopramide HCl (Reglan) 5 mg Q6 IV Last administered on 01/04/17 17:04; Admin Dose 5 MG; Start 01/02/17 at 18:00 Nifedipine (Procardia Xl) 30 mg HS PO Last administered on 01/03/17 20:48; Admin Dose 30 MG; Start 01/02/17 at 21:00 Guaifenesin (Robitussin Liquid Cup) 100 mg Q6H PRN PO COUGH Last administered on 01/03/17 00:22; Admin Dose 100 MG; Start 01/02/17 at 21:30 Fluconazole (Diflucan) 100 mg DAILY GTB Last administered on 01/04/17 08:29; Admin Dose 100 MG; Start 01/03/17 at 14:00 Acetaminophen/ Hydrocodone Bitart ([place] (5/325)) 1 tab Q6H PRN PO PAIN LEVEL 4 -7 Last administered on 01/04/17 17:47; Admin Dose 1 TAB; Start 01/04/17 at 18: 00 SANDRA VARGAS MD Jan 04, 2017 18:56
[2017-01-04] MEDS: NIFEdipine (XL) 30 MG TAB PO SCH (20:57)
[2017-01-04] MEDS: ATORVASTATIN 40 MG TAB PO SCH (20:58)
[2017-01-04] MEDS: GUAIFENESIN 20 MG/ML 5ML CUP PO PRN (21:03)
[2017-01-05] VITALS (19 sets, daily range): BP systolic 105–159; BP diastolic 48–74; PULSE 60–72; RESP 16–18
[2017-01-05] MEDS: VANCOMYCIN HCL 250 MG/5ML POSYG PO SCH ×4 (01:41→17:23)
[2017-01-05] MEDS: METOCLOPRAMIDE 10 MG INJ IV SCH ×4 (01:41→17:23)
[2017-01-05] MEDS: ACCU-CHEK XX SCH (02:00)
[2017-01-05] MEDS: metroNIDAZOLE 500 MG/NS (PMX) 100 ML IVPB SCH ×3 (05:32→21:47)
[2017-01-05 07:49] LABS: BASOPHILS % 0.6 % (0.0-2.0); EOSINOPHILS # 0.2 10^3/ul (0.0-0.5); EOSINOPHILS % 4.5 % (0.0-7.0); HEMATOCRIT 26.7 % (37.0-47.0); HEMOGLOBIN 8.9 g/dl (12.0-16.0); LYMPHOCYTES # 1.2 10^3/ul (0.8-2.9); LYMPHOCYTES % 25.6 % (15.0-51.0); MEAN CORPUSCULAR HEMOGLOBIN 32.1 pg (29.0-33.0); MEAN CORPUSCULAR HGB CONC 33.3 g/dl (32.0-37.0); MEAN CORPUSCULAR VOLUME 96.4 fl (82.0-101.0); MEAN PLATELET VOLUME 10.3 fl (7.4-10.4); MONOCYTE # 0.5 10^3/ul (0.3-0.9); MONOCYTES % 10.3 % (0.0-11.0); NEUTROPHILS % 58.6 % (39.0-77.0); PLATELET COUNT 232 10^3/UL (140-415); RED BLOOD COUNT 2.77 10^6/ul (4.20-5.40); RED CELL DISTRIBUTION WIDTH 13.3 % (11.5-14.5); WHITE BLOOD COUNT 4.7 10^3/ul (4.8-10.8)
[2017-01-05] MEDS: INSULIN ASPART [NOVOLOG] 3 ML PEN SC SCH ×4 (08:00→21:00)
[2017-01-05] MEDS: DEXTROSE 5%-0.45% NACL 1,000 ML IV SCH (08:30)
[2017-01-05] MEDS: FLUCONAZOLE 100 MG TAB GTB SCH (08:58)
[2017-01-05] MEDS: FOLIC ACID 1 MG TAB PO SCH (08:58)
[2017-01-05] MEDS: TOPIRAMATE 25 MG TAB PO SCH (08:58)
[2017-01-05] MEDS: PANTOPRAZOLE 40 MG INJ IV SCH (08:58)
[2017-01-05] MEDS: ASPIRIN 81 MG TAB PO SCH (08:58)
[2017-01-05] MEDS: GABAPENTIN 100 MG CAP PO SCH ×3 (08:58→21:46)
[2017-01-05] MEDS: NIFEdipine (XL) 60 MG TAB PO SCH (08:58)
[2017-01-05] MEDS: METOPROLOL 25 MG TAB PO SCH ×2 (08:59→21:46)
[2017-01-05] MEDS: ISOSORBIDE DINITRATE 10 MG TAB PO SCH ×3 (08:59→21:46)
[2017-01-05] MEDS: CLONIDINE 0.1 MG/24 HR PATCH TRANSDERM SCH (10:46)
--- NOTE | 2017-01-05 13:06 | CONS ---
Date/Time of Note Date/Time of Note DATE: 01/05/17 TIME: 13:03 Assessment/Plan Assessment/Plan Chief Complaint/Hosp Course IMPRESSION: 1. Positive troponin, assess significance in the setting of end- stage renal disease. No current chest pain. A previous stress test May revealing no ischemia. Likely marker of chronic coronary disease and type 2 infarct in the setting of stress of colitis.-now s/p repeat nani 01/01 with no ischemia/NL EF 2. History of cardiomyopathy, decreased left ejection fraction improved by most recent echo this admit. 3. Abnormal electrocardiogram, nonspecific ST-T abnormalities. 4. Hypertension, under reasonable control. 5. Dyslipidemia. 6. Colitis with abdominal pain, nausea and vomiting. 7. Diabetes mellitus. 8. Gastroparesis- s/p endoscoipy 01/02 Recc: -Tele -serial ecg's -Continue BB -Continue procardia/isordil/hydralazine and follow somewhat labile BP -Continue statin and asa as tolerated only -Follow hgb closely Problems: Consultation Date/Type/Reason Admit Date/Time Dec 29, 2016 at 03:15 Initial Consult Date 12/29/16 Type of Consultation: cardiology Reason for Consultation positive troponin Referring Provider: MICHELLE MCDANIEL MD Exam/Review of Systems Vital Signs Vitals Vital Signs Date Time Temp Pulse Resp B/P Pulse Ox O2 Delivery O2 Flow Rate FiO2 01/05/17 12:12 66 01/05/17 11:54 97.5 17 156/69 99 01/02/17 12:37 Nasal Cannula 2.0 Intake and Output 01/04/17 01/04/17 01/05/17 15:00 23:00 07:00 Intake Total 640 ml 400 ml Balance 640 ml 400 ml Exam Review of Systems: CONSTITUTIONAL: No fevers, chills. PULMONARY: No sob CARDIOVASCULAR: No chest pain/palpitations GASTROINTESTINAL: No nausea/vomiting. GENITOURINARY: No hematuria/dysuria. MUSCULOSKELETAL: No myagias/arthalgias. PSYCHIATRIC: The patient denies depression. NEUROLOGIC: lethargic Constitutional: alert Psych: no complaints Head: normocephalic ENMT: mucosa pink and moist Neck: jvd (9 cm water), supple Respiratory: diminished breath sounds (at bases/B) Cardiovascular: regular rate and rhythm Gastrointestinal: non-tender, soft Musculoskeletal: muscle weakness (generalized) Extremities: edema (none) Neurological: other (No focal deficits) Results Result Diagram: 01/05/17 0651 01/04/17 0657 Results 24 hrs Laboratory Tests Test 01/04/17 17:01 01/04/17 20:54 01/05/17 06:51 01/05/17 07:46 Bedside Glucose 141 131 102 White Blood Count 4.7 L Red Blood Count 2.77 L Hemoglobin 8.9 L Hematocrit 26.7 L Mean Corpuscular Volume 96.4 Mean Corpuscular Hemoglobin 32.1 Mean Corpuscular Hemoglobin Concent 33.3 Red Cell Distribution Width 13.3 Platelet Count 232 Mean Platelet Volume 10.3 Neutrophils % 58.6 Lymphocytes % 25.6 Monocytes % 10.3 Eosinophils % 4.5 Basophils % 0.6 Nucleated Red Blood Cells % 0.0 Neutrophils # (Manual) 2.7 Lymphocytes # 1.2 Monocytes # 0.5 Eosinophils # 0.2 Basophils # 0.0 Nucleated Red Blood Cells # 0.0 Test 01/05/17 12:22 Bedside Glucose 128 Medications Medications Current Medications Aspirin (Aspirin) 81 mg DAILY PO Last administered on 01/05/17 08:58; Admin Dose 81 MG; Start 12/29/16 at 09:00 Atorvastatin Calcium (Lipitor) 40 mg HS PO Last administered on 01/04/17 20:58 ; Admin Dose 40 MG; Start 12/29/16 at 21:00 Latanoprost (Xalatan) 1 drop HS BOTH EYES Last administered on 01/04/17 21:03 ; Admin Dose 1 DROP; Start 12/29/16 at 21:00 Clonidine HCl (Catapres-Tts 1 Patch) 1 patch Q7D TRANSDERM Last administered on 01/05/17 10:46; Admin Dose 1 PATCH; Start 12/29/16 at 10:00 Folic Acid (Folic Acid) 1 mg DAILY PO Last administered on 01/05/17 08:58; Admin Dose 1 MG; Start 12/29/16 at 09:00 Gabapentin (Neurontin) 100 mg TID PO Last administered on 01/05/17 12:23; Admin Dose 100 MG; Start 12/29/16 at 09:00 Hydralazine HCl (Apresoline) 100 mg Q8 PO Last administered on 01/05/17 05:32 ; Admin Dose 100 MG; Start 12/29/16 at 14:00 Isosorbide Dinitrate (Isordil) 10 mg TID PO Last administered on 01/05/17 12: 23; Admin Dose 10 MG; Start 12/29/16 at 09:00 Nifedipine (Procardia Xl) 60 mg DAILY PO Last administered on 01/05/17 08:58; Admin Dose 60 MG; Start 12/29/16 at 09:00 Promethazine HCl (Phenergan) 25 mg Q6H PRN PO VOMITTING Last administered on 20:24; Admin Dose 25 MG; Start 12/29/16 at 09:00 Topiramate 25 mg 25 mg DAILY PO Last administered on 01/05/17 08:58; Admin Dose 25 MG; Start 12/29/16 at 09:00 Dextrose/Sodium Chloride (D5-1/2ns) 1,000 ml @ 40 mls/hr Q24H IV Last administered on 01/02/17 13:52; Admin Dose 40 MLS/HR; Start 12/29/16 at 08:30 Ondansetron HCl (Zofran Inj) 4 mg Q6H PRN IV NAUSEA AND/OR VOMITING; Start 12/29 at 08:30 Acetaminophen (Tylenol Tab) 650 mg Q6H PRN PO PAIN LEVEL 1-3 OR FEVER Last administered on 01/04/17 14:32; Admin Dose 650 MG; Start 12/29/16 at 08:30 Metoclopramide HCl (Reglan) 10 mg Q6 PRN IV nausea/vommiting; Start 12/29/16 at 14:00 Hydralazine HCl 10 mg 10 mg Q6 PRN IV sbp>170 Last administered on 01/02/17 00: 31; Admin Dose 10 MG; Start 12/29/16 at 14:00 Sodium Chloride (NS) 1,000 ml @ 0 mls/hr Q0M PRN IV TO KEEP SBP ABOVE 90; Start 12/29/16 at 13:45 Miscellaneous Information 1 ea NOTE XX ; Start 12/29/16 at 14:30 Glucose (Glutose) 15 gm Q15M PRN PO DECREASED GLUCOSE; Start 12/29/16 at 14:30 Glucose (Glutose) 22.5 gm Q15M PRN PO DECREASED GLUCOSE; Start 12/29/16 at 14:30 Dextrose (D50w Syringe) 25 ml Q15M PRN IV DECREASED GLUCOSE; Start 12/29/16 at 14:30 Dextrose (D50w Syringe) 50 ml Q15M PRN IV DECREASED GLUCOSE; Start 12/29/16 at 14:30 Glucagon (Glucagen) 1 mg Q15M PRN IM DECREASED GLUCOSE; Start 12/29/16 at 14:30 Glucose (Glutose) 15 gm Q15M PRN BUCCAL DECREASED GLUCOSE; Start 12/29/16 at 14: 30 Morphine Sulfate (morphine) 2 mg Q4H PRN IV PAIN; Start 12/29/16 at 16:00 Vancomycin HCl 125 mg 125 mg Q6 PO Last administered on 01/05/17 12:23; Admin Dose 125 MG; Start 12/30/16 at 12:00 Metronidazole (Flagyl 500 Mg (Pmx)) 100 ml @ 100 mls/hr Q8 IVPB Last administered on 01/05/17 05:32; Admin Dose 100 MLS/HR; Start 12/30/16 at 14:00 Diagnostic Test (Pha) (Accu-Chek) 1 ea 02 XX Last administered on 01/01/17 01: 25; Admin Dose 1 EA; Start 12/31/16 at 02:00 Metoprolol Tartrate (Lopressor) 25 mg BID PO Last administered on 01/05/17 08: 59; Admin Dose 25 MG; Start 12/31/16 at 21:00 Metoclopramide HCl (Reglan) 5 mg Q6 IV Last administered on 01/05/17 12:23; Admin Dose 5 MG; Start 01/02/17 at 18:00 Nifedipine (Procardia Xl) 30 mg HS PO Last administered on 01/03/17 20:48; Admin Dose 30 MG; Start 01/02/17 at 21:00 Guaifenesin (Robitussin Liquid Cup) 100 mg Q6H PRN PO COUGH Last administered on 01/04/17 21:03; Admin Dose 100 MG; Start 01/02/17 at 21:30 Fluconazole (Diflucan) 100 mg DAILY GTB Last administered on 01/05/17 08:58; Admin Dose 100 MG; Start 01/03/17 at 14:00 Acetaminophen/ Hydrocodone Bitart ([place] (5/325)) 1 tab Q6H PRN PO PAIN LEVEL 4 -7 Last administered on 01/04/17t 17:47; Admin Dose 1 TAB; Start 01/04/17 at 18: 00 ANNAMARIE SANTANA Jan 05, 2017 13:06
--- NOTE | 2017-01-05 15:45 | CONS ---
Date/Time of Note Date/Time of Note DATE: 01/05/17 TIME: 15:45 Assessment/Plan Assessment/Plan Additional Assessment/Plan Additional Assessment/Plan 1. anemia 2. elevated troponin secondary to renal failure patient's 2D echo was good with good ejection fraction 3. intractable nausea and vomiting 4. generalized abdominal pain 5. CT scan showing colitis: ddx ischemic > infectious > inflammatory 6. diarrhea secondary to C. difficile colitis 7. Diabetic gastroparesis 8. Esophageal moniliasis Recommendations: Vancomycin 125 mg p.o. every 6 hour Advance diet Diflucan 100 mg daily Reglan 5 mg IV push 3 times daily for gastroparesis Continue present care Consultation Date/Type/Reason Admit Date/Time Dec 29, 2016 at 03:15 Initial Consult Date 12/29/16 Type of Consultation: cardiology Referring Provider: MICHELLE MCDANIEL MD 24 HR Interval Summary Constitutional: improved, no complaints Exam/Review of Systems Vital Signs Vitals Vital Signs Date Time Temp Pulse Resp B/P Pulse Ox O2 Delivery O2 Flow Rate FiO2 01/05/17 14:15 65 01/05/17 13:45 18 01/05/17 11:54 97.5 156/69 99 01/02/17 12:37 Nasal Cannula 2.0 Intake and Output 01/04/17 01/04/17 01/05/17 15:00 23:00 07:00 Intake Total 640 ml 400 ml Balance 640 ml 400 ml Exam Constitutional: alert, oriented, well developed Psych: nl mood/affect, no complaints Head: atraumatic, normocephalic Eyes: EOMI, PERRL, nl conjunctiva, nl lids, nl sclera ENMT: nl external ears & nose, nl lips & teeth, nl nasal mucosa & septum Neck: non-tender, supple Respiratory: clear to auscultation, normal air movement Cardiovascular: nl pulses, regular rate and rhythm Gastrointestinal: nl liver, spleen, non-tender, soft Musculoskeletal: nl extremities to inspection, nl gait and stance Extremities: normal pulses Neurological: MANAGER OF INTERNAL AUDIT II-XII intact, nl mental status, nl speech, nl strength Skin: nl turgor, No rash or lesions Lymph: nl lymph nodes Results Result Diagram: 01/05/17 0651 01/04/17 0657 Results 24 hrs Laboratory Tests Test 01/04/17 17:01 01/04/17 20:54 01/05/17 06:51 01/05/17 07:46 Bedside Glucose 141 131 102 White Blood Count 4.7 L Red Blood Count 2.77 L Hemoglobin 8.9 L Hematocrit 26.7 L Mean Corpuscular Volume 96.4 Mean Corpuscular Hemoglobin 32.1 Mean Corpuscular Hemoglobin Concent 33.3 Red Cell Distribution Width 13.3 Platelet Count 232 Mean Platelet Volume 10.3 Neutrophils % 58.6 Lymphocytes % 25.6 Monocytes % 10.3 Eosinophils % 4.5 Basophils % 0.6 Nucleated Red Blood Cells % 0.0 Neutrophils # (Manual) 2.7 Lymphocytes # 1.2 Monocytes # 0.5 Eosinophils # 0.2 Basophils # 0.0 Nucleated Red Blood Cells # 0.0 Test 01/05/17 12:22 Bedside Glucose 128 Medications Medications Current Medications Aspirin (Aspirin) 81 mg DAILY PO Last administered on 01/05/17 08:58; Admin Dose 81 MG; Start 12/29/16 at 09:00 Atorvastatin Calcium (Lipitor) 40 mg HS PO Last administered on 01/04/17 20:58 ; Admin Dose 40 MG; Start 12/29/16 at 21:00 Latanoprost (Xalatan) 1 drop HS BOTH EYES Last administered on 01/04/17 21:03 ; Admin Dose 1 DROP; Start 12/29/16 at 21:00 Clonidine HCl (Catapres-Tts 1 Patch) 1 patch Q7D TRANSDERM Last administered on 01/05/17 10:46; Admin Dose 1 PATCH; Start 12/29/16 at 10:00 Folic Acid (Folic Acid) 1 mg DAILY PO Last administered on 01/05/17 08:58; Admin Dose 1 MG; Start 12/29/16 at 09:00 Gabapentin (Neurontin) 100 mg TID PO Last administered on 01/05/17 12:23; Admin Dose 100 MG; Start 12/29/16 at 09:00 Hydralazine HCl (Apresoline) 100 mg Q8 PO Last administered on 01/05/17 05:32 ; Admin Dose 100 MG; Start 12/29/16 at 14:00 Isosorbide Dinitrate (Isordil) 10 mg TID PO Last administered on 01/05/17 12: 23; Admin Dose 10 MG; Start 12/29/16 at 09:00 Nifedipine (Procardia Xl) 60 mg DAILY PO Last administered on 01/05/17 08:58; Admin Dose 60 MG; Start 12/29/16 at 09:00 Promethazine HCl (Phenergan) 25 mg Q6H PRN PO VOMITTING Last administered on 20:24; Admin Dose 25 MG; Start 12/29/16 at 09:00 Topiramate 25 mg 25 mg DAILY PO Last administered on 01/05/17 08:58; Admin Dose 25 MG; Start 12/29/16 at 09:00 Dextrose/Sodium Chloride (D5-1/2ns) 1,000 ml @ 40 mls/hr Q24H IV Last administered on 01/02/17 13:52; Admin Dose 40 MLS/HR; Start 12/29/16 at 08:30 Ondansetron HCl (Zofran Inj) 4 mg Q6H PRN IV NAUSEA AND/OR VOMITING; Start 12/29 at 08:30 Acetaminophen (Tylenol Tab) 650 mg Q6H PRN PO PAIN LEVEL 1-3 OR FEVER Last administered on 01/04/17 14:32; Admin Dose 650 MG; Start 12/29/16 at 08:30 Metoclopramide HCl (Reglan) 10 mg Q6 PRN IV nausea/vommiting; Start 12/29/16 at 14:00 Hydralazine HCl 10 mg 10 mg Q6 PRN IV sbp>170 Last administered on 01/02/17 00: 31; Admin Dose 10 MG; Start 12/29/16 at 14:00 Sodium Chloride (NS) 1,000 ml @ 0 mls/hr Q0M PRN IV TO KEEP SBP ABOVE 90; Start 12/29/16 at 13:45 Miscellaneous Information 1 ea NOTE XX ; Start 12/29/16 at 14:30 Glucose (Glutose) 15 gm Q15M PRN PO DECREASED GLUCOSE; Start 12/29/16 at 14:30 Glucose (Glutose) 22.5 gm Q15M PRN PO DECREASED GLUCOSE; Start 12/29/16 at 14:30 Dextrose (D50w Syringe) 25 ml Q15M PRN IV DECREASED GLUCOSE; Start 12/29/16 at 14:30 Dextrose (D50w Syringe) 50 ml Q15M PRN IV DECREASED GLUCOSE; Start 12/29/16 at 14:30 Glucagon (Glucagen) 1 mg Q15M PRN IM DECREASED GLUCOSE; Start 12/29/16 at 14:30 Glucose (Glutose) 15 gm Q15M PRN BUCCAL DECREASED GLUCOSE; Start 12/29/16 at 14: 30 Morphine Sulfate (morphine) 2 mg Q4H PRN IV PAIN; Start 12/29/16 at 16:00 Vancomycin HCl 125 mg 125 mg Q6 PO Last administered on 01/05/17 12:23; Admin Dose 125 MG; Start 12/30/16 at 12:00 Metronidazole (Flagyl 500 Mg (Pmx)) 100 ml @ 100 mls/hr Q8 IVPB Last administered on 01/05/17 05:32; Admin Dose 100 MLS/HR; Start 12/30/16 at 14:00 Diagnostic Test (Pha) (Accu-Chek) 1 ea 02 XX Last administered on 01/01/17 01: 25; Admin Dose 1 EA; Start 12/31/16 at 02:00 Metoprolol Tartrate (Lopressor) 25 mg BID PO Last administered on 01/05/17 08: 59; Admin Dose 25 MG; Start 12/31/16 at 21:00 Metoclopramide HCl (Reglan) 5 mg Q6 IV Last administered on 01/05/17 12:23; Admin Dose 5 MG; Start 01/02/17 at 18:00 Nifedipine (Procardia Xl) 30 mg HS PO Last administered on 01/03/17 20:48; Admin Dose 30 MG; Start 01/02/17 at 21:00 Guaifenesin (Robitussin Liquid Cup) 100 mg Q6H PRN PO COUGH Last administered on 01/04/17 21:03; Admin Dose 100 MG; Start 01/02/17 at 21:30 Fluconazole (Diflucan) 100 mg DAILY GTB Last administered on 01/05/17 08:58; Admin Dose 100 MG; Start 01/03/17 at 14:00 Acetaminophen/ Hydrocodone Bitart ([place] (5/325)) 1 tab Q6H PRN PO PAIN LEVEL 4 -7 Last administered on 01/04/17 17:47; Admin Dose 1 TAB; Start 01/04/17 at 18: 00 STU ROCKWELL MD Jan 05, 2017 15:45
[2017-01-05] MEDS: PANTOPRAZOLE (EC) 40 MG TAB PO SCH (17:23)
--- NOTE | 2017-01-05 18:29 | PDOCDIS ---
Discharge Instructions CONDITION Patient Condition: Stable HOME CARE INSTRUCTIONS: Special Diet: carb control ACTIVITY: Activity Restrictions: Slowly Increase Activity FOLLOW UP/APPOINTMENTS Follow-up Plan F/U PCP [address] ROCKWELL [address] SANTANA 2 WK MICHELLE MCDANIEL MD Jan 05, 2017 18:29
[2017-01-05] MEDS ORDERED: VANC125C3 PO (18:33)
[2017-01-05] MEDS ORDERED: FLUC100T GTB (18:33)
--- NOTE | 2017-01-05 18:36 | PN ---
Date/Time of Note Date/Time of Note DATE: 01/05/17 TIME: 18:35 Assessment/Plan VTE Prophylaxis VTE Prophylaxis Intervention: other Lines/Catheters IV Catheter Type (from Nrs): Peripheral IV Urinary Cath still in place: No Assessment/Plan Chief Complaint/Hosp Course 1. Abdominal pain, better 2. ANEMIA 3. Elevated troponin; PER CARDIO 4. Anemia with possible melena. 5. End-stage renal disease, on hemodialysis Thursday, Thursday, Thursday. 6. Diabetes. 7. Hypertension, 8. Chronic abdominal pain. 9. History of chronic constipation. 10 C DIFF PLAN HD vanco HOME Problems: Subjective 24 Hr Interval Summary Gastrointestinal: No diarrhea Genitourinary: no complaints Exam/Review of Systems Vital Signs Vitals Vital Signs Date Time Temp Pulse Resp B/P Pulse Ox O2 Delivery O2 Flow Rate FiO2 01/05/17 16:45 72 01/05/17 16:45 17 01/05/17 16:28 98.2 137/62 94 01/02/17 12:37 Nasal Cannula 2.0 Intake and Output 01/04/17 01/04/17 01/05/17 15:00 23:00 07:00 Intake Total 640 ml 400 ml Balance 640 ml 400 ml Exam Neck: supple Respiratory: clear to auscultation Cardiovascular: regular rate and rhythm Gastrointestinal: bowel sounds (+), soft Extremities: No edema Results Result Diagram: 01/05/17 0651 01/04/17 0657 Results 24 hrs Laboratory Tests Test 01/04/17 20:54 01/05/17 06:51 01/05/17 07:46 01/05/17 12:22 Bedside Glucose 131 102 128 White Blood Count 4.7 L Red Blood Count 2.77 L Hemoglobin 8.9 L Hematocrit 26.7 L Mean Corpuscular Volume 96.4 Mean Corpuscular Hemoglobin 32.1 Mean Corpuscular Hemoglobin Concent 33.3 Red Cell Distribution Width 13.3 Platelet Count 232 Mean Platelet Volume 10.3 Neutrophils % 58.6 Lymphocytes % 25.6 Monocytes % 10.3 Eosinophils % 4.5 Basophils % 0.6 Nucleated Red Blood Cells % 0.0 Neutrophils # (Manual) 2.7 Lymphocytes # 1.2 Monocytes # 0.5 Eosinophils # 0.2 Basophils # 0.0 Nucleated Red Blood Cells # 0.0 Test 01/05/17 17:10 Bedside Glucose 180 Medications Medications Current Medications Aspirin (Aspirin) 81 mg DAILY PO Last administered on 01/05/17 08:58; Admin Dose 81 MG; Start 12/29/16 at 09:00 Atorvastatin Calcium (Lipitor) 40 mg HS PO Last administered on 01/04/17 20:58 ; Admin Dose 40 MG; Start 12/29/16 at 21:00 Latanoprost (Xalatan) 1 drop HS BOTH EYES Last administered on 01/04/17 21:03 ; Admin Dose 1 DROP; Start 12/29/16 at 21:00 Clonidine HCl (Catapres-Tts 1 Patch) 1 patch Q7D TRANSDERM Last administered on 01/05/17 10:46; Admin Dose 1 PATCH; Start 12/29/16 at 10:00 Folic Acid (Folic Acid) 1 mg DAILY PO Last administered on 01/05/17 08:58; Admin Dose 1 MG; Start 12/29/16 at 09:00 Gabapentin (Neurontin) 100 mg TID PO Last administered on 01/05/17 12:23; Admin Dose 100 MG; Start 12/29/16 at 09:00 Hydralazine HCl (Apresoline) 100 mg Q8 PO Last administered on 01/05/17 05:32 ; Admin Dose 100 MG; Start 12/29/16 at 14:00 Isosorbide Dinitrate (Isordil) 10 mg TID PO Last administered on 01/05/17 12: 23; Admin Dose 10 MG; Start 12/29/16 at 09:00 Nifedipine (Procardia Xl) 60 mg DAILY PO Last administered on 01/05/17 08:58; Admin Dose 60 MG; Start 12/29/16 at 09:00 Promethazine HCl (Phenergan) 25 mg Q6H PRN PO VOMITTING Last administered on 20:24; Admin Dose 25 MG; Start 12/29/16 at 09:00 Topiramate 25 mg 25 mg DAILY PO Last administered on 01/05/17 08:58; Admin Dose 25 MG; Start 12/29/16 at 09:00 Dextrose/Sodium Chloride (D5-1/2ns) 1,000 ml @ 40 mls/hr Q24H IV Last administered on 01/02/17 13:52; Admin Dose 40 MLS/HR; Start 12/29/16 at 08:30 Ondansetron HCl (Zofran Inj) 4 mg Q6H PRN IV NAUSEA AND/OR VOMITING; Start 12/29 at 08:30 Acetaminophen (Tylenol Tab) 650 mg Q6H PRN PO PAIN LEVEL 1-3 OR FEVER Last administered on 01/04/17 14:32; Admin Dose 650 MG; Start 12/29/16 at 08:30 Metoclopramide HCl (Reglan) 10 mg Q6 PRN IV nausea/vommiting; Start 12/29/16 at 14:00 Hydralazine HCl 10 mg 10 mg Q6 PRN IV sbp>170 Last administered on 01/02/17 00: 31; Admin Dose 10 MG; Start 12/29/16 at 14:00 Sodium Chloride (NS) 1,000 ml @ 0 mls/hr Q0M PRN IV TO KEEP SBP ABOVE 90; Start 12/29/16 at 13:45 Miscellaneous Information 1 ea NOTE XX ; Start 12/29/16 at 14:30 Glucose (Glutose) 15 gm Q15M PRN PO DECREASED GLUCOSE; Start 12/29/16 at 14:30 Glucose (Glutose) 22.5 gm Q15M PRN PO DECREASED GLUCOSE; Start 12/29/16 at 14:30 Dextrose (D50w Syringe) 25 ml Q15M PRN IV DECREASED GLUCOSE; Start 12/29/16 at 14:30 Dextrose (D50w Syringe) 50 ml Q15M PRN IV DECREASED GLUCOSE; Start 12/29/16 at 14:30 Glucagon (Glucagen) 1 mg Q15M PRN IM DECREASED GLUCOSE; Start 12/29/16 at 14:30 Glucose (Glutose) 15 gm Q15M PRN BUCCAL DECREASED GLUCOSE; Start 12/29/16 at 14: 30 Morphine Sulfate (morphine) 2 mg Q4H PRN IV PAIN; Start 12/29/16 at 16:00 Vancomycin HCl 125 mg 125 mg Q6 PO Last administered on 01/05/17 17:23; Admin Dose 125 MG; Start 12/30/16 at 12:00 Metronidazole (Flagyl 500 Mg (Pmx)) 100 ml @ 100 mls/hr Q8 IVPB Last administered on 01/05/17 05:32; Admin Dose 100 MLS/HR; Start 12/30/16 at 14:00 Diagnostic Test (Pha) (Accu-Chek) 1 ea 02 XX Last administered on 01/01/17 01: 25; Admin Dose 1 EA; Start 12/31/16 at 02:00 Metoprolol Tartrate (Lopressor) 25 mg BID PO Last administered on 01/05/17 08: 59; Admin Dose 25 MG; Start 12/31/16 at 21:00 Metoclopramide HCl (Reglan) 5 mg Q6 IV Last administered on 01/05/17 17:23; Admin Dose 5 MG; Start 01/02/17 at 18:00 Nifedipine (Procardia Xl) 30 mg HS PO Last administered on 01/03/17 20:48; Admin Dose 30 MG; Start 01/02/17 at 21:00 Guaifenesin (Robitussin Liquid Cup) 100 mg Q6H PRN PO COUGH Last administered on 01/04/17 21:03; Admin Dose 100 MG; Start 01/02/17 at 21:30 Fluconazole (Diflucan) 100 mg DAILY GTB Last administered on 01/05/17 08:58; Admin Dose 100 MG; Start 01/03/17 at 14:00 Acetaminophen/ Hydrocodone Bitart ([place] (5/325)) 1 tab Q6H PRN PO PAIN LEVEL 4 -7 Last administered on 01/04/17 17:47; Admin Dose 1 TAB; Start 01/04/17 at 18: 00 MICHELLE MCDANIEL MD Jan 05, 2017 18:36
[2017-01-05] MEDS: NIFEdipine (XL) 30 MG TAB PO SCH (21:45)
[2017-01-05] MEDS: LATANOPROST 0.005% 2.5 ML OPH BOTH EYES SCH (21:45)
[2017-01-05] MEDS: ATORVASTATIN 40 MG TAB PO SCH (21:46)
[2017-01-06] VITALS (9 sets, daily range): BP systolic 123–127; BP diastolic 57–62; PULSE 62–72; RESP 17–18
[2017-01-06] MEDS: METOCLOPRAMIDE 10 MG INJ IV SCH ×4 (00:08→17:58)
[2017-01-06] MEDS: VANCOMYCIN HCL 250 MG/5ML POSYG PO SCH ×4 (00:08→17:58)
[2017-01-06] MEDS: ACCU-CHEK XX SCH (02:00)
[2017-01-06] MEDS: metroNIDAZOLE 500 MG/NS (PMX) 100 ML IVPB SCH ×2 (05:13→15:12)
[2017-01-06] MEDS: INSULIN ASPART [NOVOLOG] 3 ML PEN SC SCH ×3 (08:00→18:00)
[2017-01-06] MEDS: DEXTROSE 5%-0.45% NACL 1,000 ML IV SCH (08:30)
--- NOTE | 2017-01-06 08:58 | CONS ---
Date/Time of Note Date/Time of Note DATE: 01/06/17 TIME: 08:56 Assessment/Plan Assessment/Plan Additional Assessment/Plan 1. Positive troponin, assess significance in the setting of end- stage renal disease. No current chest pain. A previous stress test May revealing no ischemia. Likely marker of chronic coronary disease and type 2 infarct in the setting of stress of colitis.- now s/p repeat nani 01/01 with no ischemia/NL EF - NO INTERVENTION PLANNED NOW 2. History of cardiomyopathy, decreased left ejection fraction improved by most recent echo this admit.- con't to keep euvolemic. 3. Abnormal electrocardiogram, nonspecific ST-T abnormalities. 4. Hypertension, under reasonable control- will Rx in conjunction with renal team. 5. Dyslipidemia. 6. Colitis with abdominal pain, nausea and vomiting - better overall. 7. Diabetes mellitus. 8. Gastroparesis- s/p endoscoipy 01/02 Consultation Date/Type/Reason Admit Date/Time Dec 29, 2016 at 03:15 Initial Consult Date 12/29/16 Type of Consultation: cardiology Referring Provider: MICHELLE MCDANIEL MD 24 HR Interval Summary Free Text/Dictation NO acute events - no CP now - will keep euvolemic - no intervention planned now. ROS: No fever, no chills, no nausea, no vomiting, no diarrhea/constipation No recent weight changes No chest pain, no PND, no orthopnea No dizziness, blurred vision No thirst, no heat or cold intolerance Exam/Review of Systems Vital Signs Vitals Vital Signs Date Time Temp Pulse Resp B/P Pulse Ox O2 Delivery O2 Flow Rate FiO2 01/06/17 08:47 98.0 70 18 124/58 93 01/02/17 12:37 Nasal Cannula 2.0 Intake and Output 01/05/17 01/05/17 01/06/17 15:00 23:00 07:00 Intake Total 920 ml 250 ml Output Total 3600 ml Balance -2680 ml 250 ml Exam General: WN/WD/NAD, AOx 2-3 HEENT: Unicetric/atraumatic/EOMI (follows commands) NECK: JVD elevated, no thyromegaly Lymph: no lymphadenopathy HEART: regular with no S3, II/ systolic murmur at apex LUNGS: Coarse sounds ABD: soft, NT, ND, +BS : Intact Neuro: non focal SKIN: chronic changes EXT: trace edema Results Result Diagram: 01/05/17 0651 01/04/17 0657 Results 24 hrs Laboratory Tests Test 01/05/17 12:22 01/05/17 17:10 01/05/17 21:43 01/06/17 08:41 Bedside Glucose 128 180 114 96 Medications Medications Current Medications Aspirin (Aspirin) 81 mg DAILY PO Last administered on 01/05/17 08:58; Admin Dose 81 MG; Start 12/29/16 at 09:00 Atorvastatin Calcium (Lipitor) 40 mg HS PO Last administered on 01/05/17 21:46 ; Admin Dose 40 MG; Start 12/29/16 at 21:00 Latanoprost (Xalatan) 1 drop HS BOTH EYES Last administered on 01/05/17 21:45 ; Admin Dose 1 DROP; Start 12/29/16 at 21:00 Clonidine HCl (Catapres-Tts 1 Patch) 1 patch Q7D TRANSDERM Last administered on 01/05/17 10:46; Admin Dose 1 PATCH; Start 12/29/16 at 10:00 Folic Acid (Folic Acid) 1 mg DAILY PO Last administered on 01/05/17 08:58; Admin Dose 1 MG; Start 12/29/16 at 09:00 Gabapentin (Neurontin) 100 mg TID PO Last administered on 01/05/17 21:46; Admin Dose 100 MG; Start 12/29/16 at 09:00 Hydralazine HCl (Apresoline) 100 mg Q8 PO Last administered on 01/06/17 05:13 ; Admin Dose 100 MG; Start 12/29/16 at 14:00 Isosorbide Dinitrate (Isordil) 10 mg TID PO Last administered on 01/05/17 21: 46; Admin Dose 10 MG; Start 12/29/16 at 09:00 Nifedipine (Procardia Xl) 60 mg DAILY PO Last administered on 01/05/17 08:58; Admin Dose 60 MG; Start 12/29/16 at 09:00 Promethazine HCl (Phenergan) 25 mg Q6H PRN PO VOMITTING Last administered on 20:24; Admin Dose 25 MG; Start 12/29/16 at 09:00 Topiramate 25 mg 25 mg DAILY PO Last administered on 01/05/17 08:58; Admin Dose 25 MG; Start 12/29/16 at 09:00 Dextrose/Sodium Chloride (D5-1/2ns) 1,000 ml @ 40 mls/hr Q24H IV Last administered on 01/02/17 13:52; Admin Dose 40 MLS/HR; Start 12/29/16 at 08:30 Ondansetron HCl (Zofran Inj) 4 mg Q6H PRN IV NAUSEA AND/OR VOMITING; Start 12/29 at 08:30 Acetaminophen (Tylenol Tab) 650 mg Q6H PRN PO PAIN LEVEL 1-3 OR FEVER Last administered on 01/04/17 14:32; Admin Dose 650 MG; Start 12/29/16 at 08:30 Metoclopramide HCl (Reglan) 10 mg Q6 PRN IV nausea/vommiting; Start 12/29/16 at 14:00 Hydralazine HCl 10 mg 10 mg Q6 PRN IV sbp>170 Last administered on 01/02/17 00: 31; Admin Dose 10 MG; Start 12/29/16 at 14:00 Sodium Chloride (NS) 1,000 ml @ 0 mls/hr Q0M PRN IV TO KEEP SBP ABOVE 90; Start 12/29/16 at 13:45 Miscellaneous Information 1 ea NOTE XX ; Start 12/29/16 at 14:30 Glucose (Glutose) 15 gm Q15M PRN PO DECREASED GLUCOSE; Start 12/29/16 at 14:30 Glucose (Glutose) 22.5 gm Q15M PRN PO DECREASED GLUCOSE; Start 12/29/16 at 14:30 Dextrose (D50w Syringe) 25 ml Q15M PRN IV DECREASED GLUCOSE; Start 12/29/16 at 14:30 Dextrose (D50w Syringe) 50 ml Q15M PRN IV DECREASED GLUCOSE; Start 12/29/16 at 14:30 Glucagon (Glucagen) 1 mg Q15M PRN IM DECREASED GLUCOSE; Start 12/29/16 at 14:30 Glucose (Glutose) 15 gm Q15M PRN BUCCAL DECREASED GLUCOSE; Start 12/29/16 at 14: 30 Morphine Sulfate (morphine) 2 mg Q4H PRN IV PAIN; Start 12/29/16 at 16:00 Vancomycin HCl 125 mg 125 mg Q6 PO Last administered on 01/06/17 05:13; Admin Dose 125 MG; Start 12/30/16 at 12:00 Metronidazole (Flagyl 500 Mg (Pmx)) 100 ml @ 100 mls/hr Q8 IVPB Last administered on 01/06/17 05:13; Admin Dose 100 MLS/HR; Start 12/30/16 at 14:00 Diagnostic Test (Pha) (Accu-Chek) 1 ea 02 XX Last administered on 01/01/17 01: 25; Admin Dose 1 EA; Start 12/31/16 at 02:00 Metoprolol Tartrate (Lopressor) 25 mg BID PO Last administered on 01/05/17 21: 46; Admin Dose 25 MG; Start 12/31/16 at 21:00 Metoclopramide HCl (Reglan) 5 mg Q6 IV Last administered on 01/06/17 05:13; Admin Dose 5 MG; Start 01/02/17 at 18:00 Nifedipine (Procardia Xl) 30 mg HS PO Last administered on 01/05/17 21:45; Admin Dose 30 MG; Start 01/02/17 at 21:00 Guaifenesin (Robitussin Liquid Cup) 100 mg Q6H PRN PO COUGH Last administered on 01/04/17 21:03; Admin Dose 100 MG; Start 01/02/17 at 21:30 Fluconazole (Diflucan) 100 mg DAILY GTB Last administered on 01/05/17 08:58; Admin Dose 100 MG; Start 01/03/17 at 14:00 Acetaminophen/ Hydrocodone Bitart ([place] (5/325)) 1 tab Q6H PRN PO PAIN LEVEL 4 -7 Last administered on 01/04/17 17:47; Admin Dose 1 TAB; Start 01/04/17 at 18: 00 TOBI CHERRY MD Jan 06, 2017 08:58
[2017-01-06] MEDS: FLUCONAZOLE 100 MG TAB GTB SCH (09:03)
[2017-01-06] MEDS: NIFEdipine (XL) 60 MG TAB PO SCH (09:03)
[2017-01-06] MEDS: TOPIRAMATE 25 MG TAB PO SCH (09:04)
[2017-01-06] MEDS: GABAPENTIN 100 MG CAP PO SCH ×2 (09:05→13:27)
[2017-01-06] MEDS: ISOSORBIDE DINITRATE 10 MG TAB PO SCH ×2 (09:05→13:27)
[2017-01-06] MEDS: PANTOPRAZOLE (EC) 40 MG TAB PO SCH ×2 (09:06→17:59)
[2017-01-06] MEDS: METOPROLOL 25 MG TAB PO SCH (09:06)
[2017-01-06] MEDS: FOLIC ACID 1 MG TAB PO SCH (09:06)
[2017-01-06] MEDS: ASPIRIN 81 MG TAB PO SCH (09:09)
--- NOTE | 2017-01-06 17:44 | PN ---
Date/Time of Note Date/Time of Note DATE: 01/06/17 TIME: 17:43 Assessment/Plan VTE Prophylaxis VTE Prophylaxis Intervention: other Lines/Catheters IV Catheter Type (from Nrs): Peripheral IV Urinary Cath still in place: No Assessment/Plan Chief Complaint/Hosp Course 1. Abdominal pain, better 2. ANEMIA 3. Elevated troponin; PER CARDIO 4. Anemia with possible melena. 5. End-stage renal disease, on hemodialysis Thursday, Thursday, Thursday. 6. Diabetes. 7. Hypertension, 8. Chronic abdominal pain. 9. History of chronic constipation. 10 C DIFF PLAN HD home Problems: Subjective 24 Hr Interval Summary Respiratory: no complaints Cardiovascular: no complaints Exam/Review of Systems Vital Signs Vitals Vital Signs Date Time Temp Pulse Resp B/P Pulse Ox O2 Delivery O2 Flow Rate FiO2 01/06/17 16:34 62 01/06/17 12:18 98.1 18 127/60 94 01/02/17 12:37 Nasal Cannula 2.0 Intake and Output 01/05/17 01/05/17 01/06/17 15:00 23:00 07:00 Intake Total 920 ml 250 ml Output Total 3600 ml Balance -2680 ml 250 ml Exam Respiratory: clear to auscultation Cardiovascular: regular rate and rhythm Gastrointestinal: soft Musculoskeletal: nl extremities to inspection Extremities: calf tenderness Results Result Diagram: 01/05/17 0651 01/04/17 0657 Results 24 hrs Laboratory Tests Test 01/05/17 21:43 01/06/17 08:41 01/06/17 12:03 01/06/17 17:28 Bedside Glucose 114 96 162 187 Medications Medications Current Medications Aspirin (Aspirin) 81 mg DAILY PO Last administered on 01/06/17 09:09; Admin Dose 81 MG; Start 12/29/16 at 09:00 Atorvastatin Calcium (Lipitor) 40 mg HS PO Last administered on 01/05/17 21:46 ; Admin Dose 40 MG; Start 12/29/16 at 21:00 Latanoprost (Xalatan) 1 drop HS BOTH EYES Last administered on 01/05/17 21:45 ; Admin Dose 1 DROP; Start 12/29/16 at 21:00 Clonidine HCl (Catapres-Tts 1 Patch) 1 patch Q7D TRANSDERM Last administered on 01/05/17 10:46; Admin Dose 1 PATCH; Start 12/29/16 at 10:00 Folic Acid (Folic Acid) 1 mg DAILY PO Last administered on 01/06/17 09:06; Admin Dose 1 MG; Start 12/29/16 at 09:00 Gabapentin (Neurontin) 100 mg TID PO Last administered on 01/06/17 13:27; Admin Dose 100 MG; Start 12/29/16 at 09:00 Hydralazine HCl (Apresoline) 100 mg Q8 PO Last administered on 01/06/17 15:11 ; Admin Dose 100 MG; Start 12/29/16 at 14:00 Isosorbide Dinitrate (Isordil) 10 mg TID PO Last administered on 01/06/17 13: 27; Admin Dose 10 MG; Start 12/29/16 at 09:00 Nifedipine (Procardia Xl) 60 mg DAILY PO Last administered on 01/06/17 09:03; Admin Dose 60 MG; Start 12/29/16 at 09:00 Promethazine HCl (Phenergan) 25 mg Q6H PRN PO VOMITTING Last administered on 20:24; Admin Dose 25 MG; Start 12/29/16 at 09:00 Topiramate 25 mg 25 mg DAILY PO Last administered on 01/06/17 09:04; Admin Dose 25 MG; Start 12/29/16 at 09:00 Dextrose/Sodium Chloride (D5-1/2ns) 1,000 ml @ 40 mls/hr Q24H IV Last administered on 01/02/17 13:52; Admin Dose 40 MLS/HR; Start 12/29/16 at 08:30 Ondansetron HCl (Zofran Inj) 4 mg Q6H PRN IV NAUSEA AND/OR VOMITING; Start 12/29 at 08:30 Acetaminophen (Tylenol Tab) 650 mg Q6H PRN PO PAIN LEVEL 1-3 OR FEVER Last administered on 01/04/17 14:32; Admin Dose 650 MG; Start 12/29/16 at 08:30 Metoclopramide HCl (Reglan) 10 mg Q6 PRN IV nausea/vommiting; Start 12/29/16 at 14:00 Hydralazine HCl 10 mg 10 mg Q6 PRN IV sbp>170 Last administered on 01/02/17 00: 31; Admin Dose 10 MG; Start 12/29/16 at 14:00 Sodium Chloride (NS) 1,000 ml @ 0 mls/hr Q0M PRN IV TO KEEP SBP ABOVE 90; Start 12/29/16 at 13:45 Miscellaneous Information 1 ea NOTE XX ; Start 12/29/16 at 14:30 Glucose (Glutose) 15 gm Q15M PRN PO DECREASED GLUCOSE; Start 12/29/16 at 14:30 Glucose (Glutose) 22.5 gm Q15M PRN PO DECREASED GLUCOSE; Start 12/29/16 at 14:30 Dextrose (D50w Syringe) 25 ml Q15M PRN IV DECREASED GLUCOSE; Start 12/29/16 at 14:30 Dextrose (D50w Syringe) 50 ml Q15M PRN IV DECREASED GLUCOSE; Start 12/29/16 at 14:30 Glucagon (Glucagen) 1 mg Q15M PRN IM DECREASED GLUCOSE; Start 12/29/16 at 14:30 Glucose (Glutose) 15 gm Q15M PRN BUCCAL DECREASED GLUCOSE; Start 12/29/16 at 14: 30 Morphine Sulfate (morphine) 2 mg Q4H PRN IV PAIN; Start 12/29/16 at 16:00 Vancomycin HCl 125 mg 125 mg Q6 PO Last administered on 01/06/17 13:26; Admin Dose 125 MG; Start 12/30/16 at 12:00 Metronidazole (Flagyl 500 Mg (Pmx)) 100 ml @ 100 mls/hr Q8 IVPB Last administered on 01/06/17 15:12; Admin Dose 100 MLS/HR; Start 12/30/16 at 14:00 Diagnostic Test (Pha) (Accu-Chek) 1 ea 02 XX Last administered on 01/01/17 01: 25; Admin Dose 1 EA; Start 12/31/16 at 02:00 Metoprolol Tartrate (Lopressor) 25 mg BID PO Last administered on 01/06/17 09: 06; Admin Dose 25 MG; Start 12/31/16 at 21:00 Metoclopramide HCl (Reglan) 5 mg Q6 IV Last administered on 01/06/17 13:26; Admin Dose 5 MG; Start 01/02/17 at 18:00 Nifedipine (Procardia Xl) 30 mg HS PO Last administered on 01/05/17 21:45; Admin Dose 30 MG; Start 01/02/17 at 21:00 Guaifenesin (Robitussin Liquid Cup) 100 mg Q6H PRN PO COUGH Last administered on 01/04/17 21:03; Admin Dose 100 MG; Start 01/02/17 at 21:30 Fluconazole (Diflucan) 100 mg DAILY GTB Last administered on 01/06/17 09:03; Admin Dose 100 MG; Start 01/03/17 at 14:00 Acetaminophen/ Hydrocodone Bitart ([place] (5/325)) 1 tab Q6H PRN PO PAIN LEVEL 4 -7 Last administered on 01/04/17 17:47; Admin Dose 1 TAB; Start 01/04/17 at 18: 00 MICHELLE MCDANIEL MD Jan 06, 2017 17:44
--- NOTE | 2017-01-08 13:00 | QN ---
Documentation Comment [id number] MICHELLE MCDANIEL MD Jan 08, 2017 13:00
--- NOTE | 2017-01-08 13:53 | DS ---
DATE OF ADMISSION: 12/29/2016 DATE OF DISCHARGE: 01/06/2017 HOSPITAL COURSE: Shelia Lipscomb is a 61-year-old who presented to this hospital with diagnosis of abdominal pain, elevated troponin, anemia, ESRD, diabetes, hypertension, chronic abdominal pain, history of chronic constipation. Patient's stool for C difficile was positive. Was seen by Dr. Medley in consultation, as well as Dr. Dionte Morrissey in cardiology consultation for positive troponin. The patient was also seen by Dr. medley consultation. Patient received vancomycin and Flagyl. Hemodialysis was done. The patient's hematocrit is stable. Patient's Lexiscan shows the patient has perfusion defect, ejection fraction 56 percent. Patient underwent scheduled hemodialysis and patient was cleared by the consultants to be discharged home. DISCHARGE DIAGNOSES: Include: 1. Patient has end-stage renal disease. 2. Hypertension. 3. Diabetes mellitus. 4. Dyslipidemia. 5. Clostridium difficile colitis. 6. Cardiomyopathy. 7. History of constipation. 8. History of colitis. 9. History of anemia. 10. Electrolyte imbalance. OTHER DIAGNOSES: Include: 1. Abnormal electrocardiogram. 2. Positive troponin. DISCHARGE MEDICATIONS: Include: 1. Diflucan. 2. Vancomycin 3. Aspirin. 4. Lipitor. 5. Lumigan. 6. Bisacodyl. 7. Clonidine. 8. Iron sulfate. 9. Polycalcium. 10. Gabapentin. 11. Hydralazine. 12. Insulin. 13. Isosorbide. 14. Amitiza. 15. Nifedipine. 16. Omeprazole. 17. Zofran. 18. Promethazine. 19. Topamax. 20. Tramadol. FOLLOWUP: Patient to follow as an outpatient with PCP. Hemodialysis as an outpatient. Dictated By: Dano Becerra MD /josé manuel/lashell /Document#: [id number] DEANNE
== END 2017-01-06 18:09 | disposition home or self-care (01) | DRG 391 ==
LOC: E/R 19:52 → MS4 12-29 03:15
PROVIDERS: ADMIT Internal Medicine Nephrology; ATTEND Internal Medicine Nephrology
PROC: 5A1D60Z (ICD-10-PCS; 2016-12-30)
PROC: 30233N1 Transfusion of Nonautologous Red Blood Cells into Peripheral Vein, Percutaneous Approach (ICD-10-PCS; 2016-12-31)
PROC: C22GYZZ Tomographic (Tomo) Nuclear Medicine Imaging of Myocardium using Other Radionuclide (ICD-10-PCS; principal; 2017-01-01)
PROC: 4A02XM4 Measurement of Cardiac Total Activity, External Approach (ICD-10-PCS; 2017-01-01)
PROC: 3E033HZ Introduction of Radioactive Substance into Peripheral Vein, Percutaneous Approach (ICD-10-PCS; 2017-01-01)
PROC: 0DB78ZX Excision of Stomach, Pylorus, Via Natural or Artificial Opening Endoscopic, Diagnostic (ICD-10-PCS; 2017-01-02)
DX: R10.84 Generalized abdominal pain (principal); N18.6 End stage renal disease; B37.89 Other sites of candidiasis; A04.7 Enterocolitis due to Clostridium difficile; I42.9 Cardiomyopathy, unspecified; I13.11 Hypertensive heart and chronic kidney disease without heart failure, with stage 5 chronic kidney disease, or end stage renal disease; E11.22 Type 2 diabetes mellitus with diabetic chronic kidney disease; E87.6 Hypokalemia; K31.84 Gastroparesis; E11.43 Type 2 diabetes mellitus with diabetic autonomic (poly)neuropathy; G89.29 Other chronic pain; R79.9 Abnormal finding of blood chemistry, unspecified; E78.5 Hyperlipidemia, unspecified; R94.31 Abnormal electrocardiogram [ECG] [EKG]; K59.09 Other constipation; B37.9 Candidiasis, unspecified; R11.2 Nausea with vomiting, unspecified; K31.7 Polyp of stomach and duodenum; D64.9 Anemia, unspecified
CPT/HCPCS: 36430; 71010; 74176; 78452; 80048; 80053; 82550; 82553; 82962; 83605; 83735; 84100; 84484; 85025; 85610; 85730; 86850; 86900; 86901; 86920; 87040; 87045; 87075; 88305; 88312; 90935; 93005; 93017; 93306; 96374; 96375; 96376; A9500; A9505; C9113; J0360; J1815; J2250; J2270; J2405; J2543; J2765; J2785; J3010; J3480; J7040; J7042; P9016

== ENCOUNTER 2017-04-30 13:39 | Emergency (ER) | END 2017-04-30 20:57 | disposition home or self-care (01) ==

== ENCOUNTER 2017-05-02 21:23 | Emergency (ER) | END 2017-05-03 01:00 | disposition left against medical advice (07) ==

== ENCOUNTER 2017-05-06 15:59 | Inpatient (IN) | END 2017-05-08 17:22 | disposition home or self-care (01) | DRG 291 ==

== ENCOUNTER 2017-05-29 20:52 | Inpatient (IN) | END 2017-06-02 18:30 | disposition home or self-care (01) | DRG 391 ==

== ENCOUNTER 2017-06-13 12:50 | Inpatient (IN) | END 2017-06-20 17:40 | disposition home or self-care (01) | DRG 391 ==

== ENCOUNTER → 2017-06-26 | Emergency (ER) | END | disposition home or self-care (01) ==

== ENCOUNTER 2017-07-07 13:27 | Emergency (ER) | END 2017-07-10 16:45 | disposition home or self-care (01) ==

== ENCOUNTER 2017-08-03 18:01 | Inpatient (IN) | END 2017-08-11 18:50 | DRG 291 ==

== ENCOUNTER 2017-08-14 02:50 | Inpatient (IN) | END 2017-08-19 13:45 | DRG 377 ==

== ENCOUNTER 2017-09-09 21:30 | Inpatient (IN) | END 2017-09-29 18:15 | DRG 480 ==

== ENCOUNTER 2017-10-02 16:29 | Emergency (ER) | END 2017-10-02 20:26 | disposition home or self-care (01) ==

== ENCOUNTER 2018-01-12 16:02 | Emergency (ER) | END 2018-01-12 20:43 ==

== ENCOUNTER 2018-02-24 10:42 | Inpatient (IN) | END 2018-03-02 18:40 | DRG 252 ==

== ENCOUNTER 2018-09-12 14:32 | Inpatient (IN) | payer MEDICARE, BC ==
[~2018-09-12] VITALS: Ht 165.1 cm; Wt 52.9 kg
[~2018-09-12 14:32] MED LIST changes: +ACET325T33 GTB; +AMLO-147 GTB; -AMOX500T PO; +ASC500 GTB; -ASPI81TA3 PO; -ATOR40TA68 PO; -BIMA2.5D BOTH EYES; -BISA-57 PO; -CATTTS1 TRANSDERM; +CRAN3875 GTB; +CRAN425C6 GTB; +DOCU-144 GTB; -DOCU100T PO; +ENOX30DI10 SQ; -FER325 PO; -FOLI-49 PO; -GABA100C14 PO; -HYDR-3672 PO; -ISOS10TA2 PO; +LANS30CA GTB; -LANT3I SC; +LIDO1ADH TP; +LOSA25TA12 GTB; -LUBI24CA7 PO; +MULT9LIQ4 GTB; +NEPH GTB; -NIFE30TA2 PO; -NIFE60TA7 PO; -OMEP20CA16 PO; +ONDA4TAB13 GTB; -ONDA4TAB95 PO; +POLY17PO6 GTB; -POLY17PO6 PO; -PROM25TA14 PO; -TOPI25TA38 PO; -TRAM-40 PO; +TYL500 GTB
[2018-09-12] MEDS ORDERED: SOD CHLORIDE 0.9% 1,000 ML IV STA (14:33)
[2018-09-12] MEDS ORDERED: PANTOPRAZOLE 40 MG INJ IV STA (14:33)
[2018-09-12 14:38] VITALS: Ht 165.1 cm; Wt 52.9 kg
[2018-09-12] MEDS ORDERED: AMLO-147 GTB (16:04)
[2018-09-12] MEDS ORDERED: DOCU-144 GTB (16:05)
[2018-09-12] MEDS ORDERED: CRAN425C6 GTB (16:06)
[2018-09-12] MEDS ORDERED: FERR220S13 GTB (16:07)
[2018-09-12] MEDS ORDERED: LANS30CA GTB (16:07)
[2018-09-12] MEDS ORDERED: LOSA25TA12 GTB (16:08)
[2018-09-12] MEDS ORDERED: NITR0.4T32 SL (16:09)
[2018-09-12] MEDS ORDERED: HYDR-4011 GTB (16:09)
[2018-09-12] MEDS ORDERED: AMIN30LI GTB (16:11)
[2018-09-12] MEDS ORDERED: METO5TAB58 GTB (16:11)
[2018-09-12] MEDS ORDERED: NEPH GTB (16:12)
[2018-09-12] MEDS ORDERED: TRAM50TA GTB (16:14)
[2018-09-12] MEDS ORDERED: ACET-141 GTB (16:15)
[2018-09-12] MEDS ORDERED: ACET325T33 GTB (16:15)
[2018-09-12] MEDS ORDERED: CRAN3875 GTB (16:16)
[2018-09-12] MEDS ORDERED: ONDANSETRON 4 MG INJ ONE (17:14)
[2018-09-12] MEDS ORDERED: ACETAMINOPHEN 325 MG TAB PO PRN (18:30)
[2018-09-12] MEDS ORDERED: ONDANSETRON 4 MG INJ IV PRN (18:30)
--- NOTE | 2018-09-12 18:37 | ERD ---
ER Documentation Chief Complaint Chief Complaint COFFEE GROUND EMESIS X 3 LAST NIGHT. HPI This is a 73-year-old female history of end-stage renal disease who presents to the emergency room with a report of coffee-ground emesis. Patient is coming from senior living facility. A single episode was noted. No report of melena. Patient has a history of some chronic encephalopathy and the remainder of HPI is very limited. ROS Limited Medications Home Meds Reported Medications Cran/Vitc/Mannose/Inulin/Brom (Uti-Stat Liquid) 3,875 Mg/30 Ml Liquid, 30 ML GTB DAILY 09/12/18 Acetaminophen* (Acetaminophen*) 500 MG Extra Strength Tablet, 1000 MG GTB Q6H PRN for PAIN 4-10/04, TAB 09/12/18 Acetaminophen* (Tylenol*) 325 Mg Tablet, 650 MG GTB Q6H PRN for MILD PAIN LEVEL 1-3, TAB 09/12/18 Tramadol Hcl* (Ultram*) 50 Mg Tablet, 50 MG GTB Q6H PRN for PAIN 7-01/04, TAB 09/12/18 Multivit/Ca Carb/B Cmplx/Fa* (Lydia-Kali*) 1 Tab Tab, 1 TAB GTB DAILY, TAB 09/12/18 Metoclopramide* (Reglan*) 5 Mg Tablet, 5 MG GTB BID, TAB 09/12/18 Amino Acids/Protein Hydrolys (PRO-STAT LIQUID) 30 Ml Liquid.pkt, 30 ML GTB DAILY 09/12/18 Hydrocodone/Acetaminophen ([place] 5-325 Tablet) 1 Each Tablet, 1 EACH GTB Q12H, TAB 09/12/18 Nitroglycerin* (Nitroglycerin* SL) 0.4 Mg Tab.subl, 0.4 MG SL Q5MIN PRN for CHEST PAIN, BOTTLE 09/12/18 Losartan Potassium* (Losartan Potassium*) 25 Mg Tablet, 25 MG GTB DAILY, TAB HOLD IF SBP<110 OR HR<60 09/12/18 Lansoprazole* (Lansoprazole*) 30 Mg Capsule.dr, 30 MG GTB DAILY, CAP 09/12/18 Ferrous Sulfate* (Ferrous Sulfate*) 220 Mg/5 Ml Solution, 7.5 ML GTB DAILY, ML 09/12/18 Cranberry Extract (Cranberry) 425 Mg Capsule, 425 MG GTB DAILY, CAP 09/12/18 Docusate Sodium* (Colace*) 100 Mg Capsule, 200 MG GTB QHS, #30 CAP 09/12/18 Amlodipine Besylate* (Amlodipine Besylate*) 10 Mg Tablet, 10 MG GTB DAILY, #30 TAB HOLD IF SBP<110 OR HR<60 09/12/18 Discontinued Reported Medications Lidocaine (Lidocare) 1 Each Adh..patch, 1 EACH TP DAILY TO LEFT THIGH 01/12/18 Multivit &Minerals/Ferrous Fum (MULTIVITAMIN LIQUID) 9 Mg/15 Ml Liquid, 5 ML GTB DAILY 01/12/18 Polyethylene Glycol* (Miralax*) 17 Gm Powd.pack, 17 GM GTB NEEDED, #30 PACKET 01/12/18 Enoxaparin Sodium* (Lovenox*) 30 Mg/0.3 Ml Disp.syrin, 30 MG SQ DAILY, SYR 01/12/18 Ondansetron Hcl* (Zofran*) 4 Mg Tab, 4 MG GTB Q6H PRN for NAUSEA AND OR VOMITING, TAB 01/12/18 Ascorbic Acid (Vitamin C) 500 Mg Tab, 500 MG GTB BID, TAB 01/12/18 Cran/Vitc/Mannose/Inulin/Brom (Uti-Stat Liquid) 3,875 Mg/30 Ml Liquid, 30 MG GTB DAILY 01/12/18 Lansoprazole* (Lansoprazole*) 30 Mg Capsule.dr, 30 MG GTB DAILY, CAP 01/12/18 Acetaminophen* (Tylenol*) 325 Mg Tablet, 650 MG GTB Q4H PRN for MILD PAIN LEVEL 1-3, TAB 01/12/18 Cranberry Extract (Cranberry) 425 Mg Capsule, 425 MG GTB DAILY, CAP 01/12/18 Losartan Potassium* (Losartan Potassium*) 25 Mg Tablet, 25 MG GTB DAILY, TAB HOLD IF SBP BELOW 110 OR HR BELOW 60 01/12/18 Acetaminophen* (Tylenol*) 500 Mg Tab, 1000 MG GTB Q4H PRN for PAIN LEVEL 4-10, TAB 10/02/17 Docusate Sodium* (Colace*) 100 Mg Capsule, 200 MG GTB QHS, #60 CAP 10/02/17 Multivit/Ca Carb/B Cmplx/Fa* (Lydia-Kali*) 1 Tab Tab, 1 TAB GTB DAILY, TAB 2/2/18 Amlodipine Besylate* (Amlodipine Besylate*) 10 Mg Tablet, 10 MG GTB DAILY, #30 TAB HOLD FOR SBP BELOW 110 OR HR BELOW 60 05/29/17 Allergies Allergies: Coded Allergies: No Known Allergies (Verified Allergy, Unknown, 09/12/18) PMhx/Soc History of Surgery: Yes (FISTULA RIGHT UPPER ARM) Anesthesia Reaction: No Hx Neurological Disorder: No Hx Respiratory Disorders: No Hx Cardiac Disorders: Yes (CHF, HTN, HYPERLIPIDEMIA, N-STEMI) Hx Psychiatric Problems: No Hx Miscellaneous Medical Probl: Yes (DEMENIA, ESRD, GASTRITIS, GERD, ANEMIA) Hx Alcohol Use: No Hx Substance Use: No Hx Tobacco Use: No Smoking Status: Never smoker FmHx Family History: No diabetes Physical Exam Vitals Vital Signs Date Temp Pulse Resp B/P (MAP) Pulse Ox O2 O2 Flow FiO2 Time Delivery Rate 09/12/18 76 15 124/69 100 Room Air 17:02 (87) 09/12/18 Nasal 2 15:10 Cannula 09/12/18 98.4 81 16 156/66 92 14:38 (96) Physical Exam General: No significant distress Head: Normocephalic, atraumatic. Eyes: Pupils equally reactive, EOM intact ENT: Moist mucous membranes Neck: Supple, no lymphadenopathy Respiratory: Lungs clear bilaterally, no distress Cardiovascular: RRR, no murmurs, rubs, or gallops Abdominal: Soft, non-tender, non-distended, no peritoneal signs : No melena MSK: Limited movement of all 4 extremities, no bony abnormalities Neurologic: Limited exam, and encephalopathic, limited movement of all 4 extremities Skin: No rash, no significant breakdown Psych: Unable to assess Result Diagram: 09/12/18 1503 09/12/18 1503 Results 24 hrs Laboratory Tests Test 09/12/18 15:03 White Blood Count 11.1 10^3/ul Red Blood Count 3.17 10^6/ul Hemoglobin 9.7 g/dl Hematocrit 29.9 % Mean Corpuscular Volume 94.3 fl Mean Corpuscular Hemoglobin 30.6 pg Mean Corpuscular Hemoglobin Concent 32.4 g/dl Red Cell Distribution Width 15.4 % Platelet Count 570 10^3/UL Mean Platelet Volume 9.2 fl Immature Granulocytes % 0.400 % Neutrophils % 87.8 % Lymphocytes % 6.5 % Monocytes % 4.3 % Eosinophils % 0.5 % Basophils % 0.5 % Nucleated Red Blood Cells % 0.0 /100WBC Immature Granulocytes # 0.040 10^3/ul Neutrophils # 9.8 10^3/ul Lymphocytes # 0.7 10^3/ul Monocytes # 0.5 10^3/ul Eosinophils # 0.1 10^3/ul Basophils # 0.1 10^3/ul Nucleated Red Blood Cells # 0.0 10^3/ul Prothrombin Time 13.0 Sec Prothrombin Time Ratio 1.0 INR International Normalized Ratio 0.97 Activated Partial Thromboplast Time 34.8 Sec Sodium Level 135 mmol/L Potassium Level 4.3 mmol/L Chloride Level 84 mmol/L Carbon Dioxide Level 34 mmol/L Anion Gap 17 Blood Urea Nitrogen 80 mg/dl Creatinine 4.81 mg/dl Est Glomerular Filtrat Rate mL/min mL/min Glucose Level 221 mg/dl Calcium Level 9.2 mg/dl Total Bilirubin 0.2 mg/dl Direct Bilirubin 0.00 mg/dl Indirect Bilirubin 0.2 mg/dl Aspartate Amino Transf (AST/SGOT) 33 IU/L Alanine Aminotransferase (ALT/SGPT) 28 IU/L Alkaline Phosphatase 182 IU/L Troponin I < 0.012 ng/ml Total Protein 7.8 g/dl Albumin 4.2 g/dl Globulin 3.60 g/dl Albumin/Globulin Ratio 1.16 Lipase 83 U/L Current Medications Medications Dose Sig/Leanne Start Time Status Last (Trade) Ordered Route PRN Stop Time Admin Dose Reason Admin Sodium 1,000 ml @ Q1H STAT 09/12/18 DC 09/12/18 Chloride 1,000 mls/hr IV 14:33 15:05 09/12/18 15:32 40 mg ONCE STAT 09/12/18 DC 09/12/18 Pantoprazole IV 14:33 15:05 (Protonix 09/12/18 14:34 Iv) Ondansetron 4 mg STK-MED 09/12/18 DC HCl (Zofran ONCE .ROUTE 17:14 Inj) 09/12/18 17:15 Ondansetron 4 mg BRIDGE ORDER 09/12/18 HCl (Zofran PRN IV 18:30 Inj) NAUSEA/VOMITI 09/13/18 18:29 NG 650 mg ER BRIDGE 09/12/18 Acetaminophen PRN PO 18:30 (Tylenol .MILD PAIN 09/13/18 18:29 Tab) 1-3 OR TEMP Procedures/MDM EKG, MONITORS, & DIAGNOSTIC IMAGING: EKG: I reviewed and interpreted a 12-lead EKG. Rhythm: Normal sinus rhythm ST Changes: No contiguous ST segment elevations T waves: No contiguous T wave inversions Impression: No evidence of acute cardiac ischemia ct a/p IMPRESSION: 1. Circumferential colonic wall edema of the ascending colon and rectum, concerning for colitis. Consider infectious, ischemic, or inflammatory etiologies. 2. Cardiomegaly with trace pericardial effusion. 3. Bilateral renal atrophy. 4. Percutaneous G tube in place. 5. Heavy aortic and peripheral vascular calcifications. CXR IMPRESSION: 1. Atherosclerosis of the thoracic aorta. 2. Expiratory phase chest without radiographic evidence of overt congestive failure or pneumonia. 3. Severe osteoarthritis at the right shoulder with a chronic right rotator cuff tear. Lesser changes at the left shoulder. RPTAT:AAJJ LAB INTERPRETATION: I reviewed the laboratory testing and it shows hemoglobin that is slightly below baseline MEDICAL DECISION MAKING: The patient presents to the emergency room with coffee-ground emesis. Patient is hemodynamically stable. A work-up was initiated. The patient's hemoglobin has dropped 1 unit. No evidence of active or significant upper GI bleed. No indication for PPI drip but a bolus of 40 mg was provided. The patient does not require blood transfusion. CT imaging shows possible colitis but the patient h as no fever no diarrhea. At this time clinically I do not believe this is consistent with bacterial infection and do not believe empiric antibiotics are necessary. I discussed this with the admitting team and they are agreeable. ER COURSE: * IV established. Patient given PPI CONSULTATION: None DISPOSITION PLAN: Accepting care team and consultations: I discussed the current laboratory data, diagnostic imaging and emergency care provided. Admitting team: Dr. Becerra Admitting team indication: Insurance directed Departure Diagnosis: Primary Impression: Hematemesis Nausea presence: unspecified Qualified Codes: K92.0 - Hematemesis Additional Impressions: ESRD (end stage renal disease) Anemia Anemia type: unspecified type Qualified Codes: D64.9 - Anemia, unspecified Condition: Stable IBIS MEDELLIN MD September 12, 2018 18:37
[2018-09-12 21:00] VITALS: BP 173/77; PULSE 72; RESP 18
[2018-09-12] MEDS ORDERED: NEPH G-TUBE (21:58)
[2018-09-12] MEDS ORDERED: ACETAMINOPHEN 325 MG TAB GTB PRN (23:00)
[2018-09-12] MEDS ORDERED: ACETAMINOPHEN 500 MG TAB PO PRN (23:00)
--- NOTE | 2018-09-12 23:03 | HP ---
Date/Time of Note Date/Time of Note DATE: 09/12/18 TIME: 22:59 Assessment/Plan VTE Prophylaxis SCD applied (from Nsg): Yes SCD contraindicated: other Pharmacological prophylaxis: other Lines/Catheters IV Catheter Type (from Nrsg): Saline Lock Assessment/Plan Hospital Course POSS GI BLEED PEG ESRD ANEMIA HTN ASHD OA DJD PLAN PPI IV FLUID GI CONSULT Result Diagram: 09/12/18 1503 09/12/18 1503 Results 24hrs Laboratory Tests Test 09/12/18 15:03 White Blood Count 11.1 #H Red Blood Count 3.17 #L Hemoglobin 9.7 L Hematocrit 29.9 L Mean Corpuscular Volume 94.3 Mean Corpuscular Hemoglobin 30.6 Mean Corpuscular Hemoglobin Concent 32.4 Red Cell Distribution Width 15.4 H Platelet Count 570 #H Mean Platelet Volume 9.2 Immature Granulocytes % 0.400 Neutrophils % 87.8 H Lymphocytes % 6.5 L Monocytes % 4.3 Eosinophils % 0.5 Basophils % 0.5 Nucleated Red Blood Cells % 0.0 Immature Granulocytes # 0.040 H Neutrophils # 9.8 H Lymphocytes # 0.7 L Monocytes # 0.5 Eosinophils # 0.1 Basophils # 0.1 Nucleated Red Blood Cells # 0.0 Prothrombin Time 13.0 Prothrombin Time Ratio 1.0 INR International Normalized Ratio 0.97 Activated Partial Thromboplast Time 34.8 Sodium Level 135 Potassium Level 4.3 Chloride Level 84 L Carbon Dioxide Level 34 H Anion Gap 17 H Blood Urea Nitrogen 80 H Creatinine 4.81 H Est Glomerular Filtrat Rate mL/min Glucose Level 221 H Calcium Level 9.2 Total Bilirubin 0.2 Direct Bilirubin 0.00 Indirect Bilirubin 0.2 Aspartate Amino Transf (AST/SGOT) 33 Alanine Aminotransferase (ALT/SGPT) 28 Alkaline Phosphatase 182 H Troponin I < 0.012 Total Protein 7.8 Albumin 4.2 Globulin 3.60 H Albumin/Globulin Ratio 1.16 Lipase 83 HPI/ROS Admit Date/Time Admit Date/Time September 12, 2018 at 18:01 Hx of Present Illness ESRD HTN PEG HAS NAUSEA AND VOMITINGW COFFE GROUND EMESIS ROS Constitutional: no complaints, improved Eyes: no complaints ENT: no complaints Respiratory: no complaints Cardiovascular: no complaints Gastrointestinal: no complaints, nausea, vomiting Genitourinary: no complaints Musculoskeletal: no complaints Skin: no complaints Neurologic: no complaints Endocrine: no complaints Lymphatic: no complaints Psychological: no complaints, nl mood/affect Immunologic: no complaints PMH/Family/Social Past Medical History Medical History: GERD, GI bleed, high cholesterol, hypertension, peptic ulcer disease, renal disease Medications Current Medications Ondansetron HCl (Zofran Inj) 4 mg BRIDGE ORDER PRN IV NAUSEA/VOMITING; Start 09/12/18 at 18:30; Stop 09/13/18 at 18:29 Acetaminophen (Tylenol Tab) 650 mg ER BRIDGE PRN PO .MILD PAIN 1-3 OR TEMP; Start 09/12/18 at 18:30; Stop 09/13/18 at 18:29 Coded Allergies: No Known Allergies (Verified Allergy, Unknown, 09/12/18) Past Surgical History Past Surgical Hx: no surgical history, angioplasty (PLACEMENT), endoscopy, other (PEG PLACEMENT) Family History Significant Family History: no pertinent family hx, heart disease, hypertension Social History Smoking Status: Never smoker Drug Use: none Exam/Review of Systems Vital Signs Vitals Vital Signs Date Temp Pulse Resp B/P (MAP) Pulse Ox O2 O2 Flow FiO2 Time Delivery Rate 09/12/18 98.0 75 16 157/64 100 Nasal 2.0 20:04 (95) Cannula Exam Constitutional: alert Head: normocephalic Eyes: EOMI Neck: supple Respiratory: clear to auscultation, normal air movement Cardiovascular: regular rate and rhythm, nl pulses Gastrointestinal: soft, bowel sounds (+) Extremities: No edema 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
[2018-09-12] MEDS ORDERED: HYDROCODONE/APAP (5/325) TAB PO PRN (23:30)
[2018-09-12] MEDS ORDERED: hydrALAzine 20 MG INJ IV PRN (23:30)
[2018-09-12] MEDS ORDERED: DOCUSATE SODIUM 100 MG CAP PO PRN (23:30)
[2018-09-12] MEDS ORDERED: NACL 0.9% 3 ML SYG IV SCH (23:30)
[2018-09-12] MEDS ORDERED: BISACODYL (EC) 5 MG TAB PO PRN (23:30)
[2018-09-12] MEDS ORDERED: DEXTROSE 50% 50 ML SYRINGE IV PRN ×2 (23:45)
[2018-09-12] MEDS ORDERED: GLUCOSE GEL 15 GRAM TUBE BUCCAL PRN (23:45)
[2018-09-12] MEDS ORDERED: GLUCAGON 1 MG INJ IM PRN (23:45)
[2018-09-12] MEDS ORDERED: GLUCOSE GEL 15 GRAM TUBE PO PRN ×2 (23:45)
[2018-09-13] VITALS (11 sets, daily range): BP systolic 100–156; BP diastolic 48–70; PULSE 71–93; RESP 17–20
[2018-09-13] MEDS: INSULIN ASPART [NOVOLOG] 3 ML PEN SC SCH ×4 (00:09→17:32)
[2018-09-13] MEDS: traMADol 50 MG TAB GTB PRN ×2 (03:55→12:26)
[2018-09-13] MEDS ORDERED: DOCUSATE SODIUM 10 MG/ML (10ML CUP) GTB PRN (05:30)
[2018-09-13] MEDS ORDERED: PANTOPRAZOLE 40 MG INJ IV SCH (06:00)
[2018-09-13] MEDS ORDERED: METOCLOPRAMIDE 5 MG TAB GTB SCH (09:00)
[2018-09-13] MEDS ORDERED: DOCUSATE SODIUM 10 MG/ML (10ML CUP) PO SCH (09:00)
[2018-09-13] MEDS: MULTIVIT/CA CARB/B CMPLX/FA TAB GTB SCH (09:06)
[2018-09-13] MEDS: LOSARTAN 25 MG TAB GTB SCH (09:06)
[2018-09-13] MEDS: AMLODIPINE 10 MG TAB GTB SCH (09:06)
[2018-09-13] MEDS: FERROUS SULFATE 60 MG/ML 5ML CUP GTB SCH (09:06)
[2018-09-13] MEDS: ONDANSETRON 4 MG INJ IV PRN ×2 (09:14)
--- NOTE | 2018-09-13 16:30 | PN ---
Date/Time of Note Date/Time of Note DATE: 09/13/18 TIME: 16:30 Assessment/Plan VTE Prophylaxis Risk score (from Ns)>0 risk: 3 SCD applied (from Ns): No SCD contraindicated: low risk/ambulating Pharmacological prophylaxis: NA/contraindicated Pharm contraindication: low risk/ambulating Lines/Catheters IV Catheter Type (from Nrs): Saline Lock Urinary Cath still in place: No Assessment/Plan Assessment/Plan MPRESSION: 1. Upper gastrointestinal bleeding as witnessed by the staff nurse in the [place] [facility]. 2. Dysphagia, status post G-tube. 3. End-stage renal disease. on HD 4. Anemia. 5. Hypertension. 6. Osteoarthritis. 7. Atherosclerotic heart disease. plan - HD today - repeat H/H - GI consult - increase PPI and reglan Result Diagram: 09/12/18 1503 09/12/18 1503 Results 24hrs Laboratory Tests Test 09/13/18 00:01 09/13/18 05:31 09/13/18 12:18 Bedside Glucose 191 203 222 H Subjective 24 Hr Interval Summary Free Text/Dictation + some dry heaving no active bleeding Exam/Review of Systems Exam Vitals Vital Signs Date Temp Pulse Resp B/P (MAP) Pulse Ox O2 O2 Flow FiO2 Time Delivery Rate 09/13/18 98.3 89 18 156/70 99 15:21 (98) 09/12/18 Nasal 2.0 23:30 Cannula Intake and Output 09/12/18 09/12/18 09/13/18 1515:00 23:00 07:00 IntakeIntake Total 120 ml BalanceBalance 120 ml Exam Constitutional: alert Head: normocephalic Eyes: EOMI Neck: supple Respiratory: clear to auscultation, normal air movement Cardiovascular: regular rate and rhythm, nl pulses Gastrointestinal: soft, bowel sounds (+) Extremities: No edema 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, nl mental status Results Results 24hrs Laboratory Tests Test 09/13/18 00:01 09/13/18 05:31 09/13/18 12:18 Bedside Glucose 191 203 222 H Medications Medication Current Medications Acetaminophen (Tylenol Tab) 1,000 mg Q6H PRN PO PAIN 4-6/10; Start 09/12/18 at 23:00 Acetaminophen (Tylenol Tab) 650 mg Q6H PRN GTB MILD PAIN LEVEL 1-3; Start 09/12/18 at 23:00 Amlodipine Besylate (Norvasc) 10 mg DAILY GTB Last administered on 09/13/18 09:06; Admin Dose 10 MG; Start 09/13/18 at 09:00 Ferrous Sulfate (Feosol Liquid Cup) 330 mg DAILY GTB Last administered on 09/13/18 09:06; Admin Dose 330 MG; Start 09/13/18 at 09:00 Losartan Potassium (Cozaar) 25 mg DAILY GTB Last administered on 09/13/18 09:06; Admin Dose 25 MG; Start 09/13/18 at 09:00 Metoclopramide HCl (Reglan) 5 mg BID GTB Last administered on 09/13/18 09:06; Admin Dose 5 MG; Start 09/13/18 at 09:00 Multivit/Ca Carb/ B Cmplx/FA/Prenat (Lydia-Kali) 1 tab DAILY GTB Last administered on 09/13/18 09:06; Admin Dose 1 TAB; Start 09/13/18 at 09:00 Tramadol HCl (Ultram) 50 mg Q6H PRN GTB PAIN 7-9/10 Last administered on 09/13/18 12:26; Admin Dose 50 MG; Start 09/12/18 at 23:00 Dextrose/Sodium Chloride 1,000 ml @ 40 mls/hr Q24H IV Last administered on 09/13/18 00:00; Admin Dose 40 MLS/HR; Start 09/12/18 at 23:03 IV Flush (NS 3 ml) 3 ml PER PROTOCOL IV ; Start 09/12/18 at 23:30 Ondansetron HCl (Zofran Inj) 4 mg Q6H PRN IV NAUSEA/VOMITING Last administered on 09/13/18 09:14; Admin Dose 4 MG; Start 09/12/18 at 23:30 Acetaminophen/ Hydrocodone Bitart ([place] (5/325)) 1 tab Q6H PRN PO .MOD PAIN 4- 6; Start 09/12/18 at 23:30 Bisacodyl (Dulcolax) 5 mg DAILY PRN PO .CONSTIPATION; Start 09/12/18 at 23:30 Pantoprazole (Protonix Iv) 40 mg DAILY@06 IV Last administered on 5/20/19at 05:26; Admin Dose 40 MG; Start 09/13/18 at 06:00 Hydralazine HCl (Apresoline) 10 mg Q6H PRN IV ELEVATED BLOOD PRESSURE; Start 09/12/18 at 23:30 Insulin Aspart (Novolog Insulin Pen) NOVOLOG *MILD* ALGORI... Q6 SC Last administered on 09/13/18at 12:20; Admin Dose 3 UNIT; Start 09/13/18 at 00:00 Miscellaneous Information 1 ea NOTE XX ; Start 09/12/18 at 23:45 Glucose (Glutose) 15 gm Q15M PRN PO DECREASED GLUCOSE; Start 09/12/18 at 23:45 Glucose (Glutose) 22.5 gm Q15M PRN PO DECREASED GLUCOSE; Start 09/12/18 at 23:45 Dextrose (D50w Syringe) 25 ml Q15M PRN IV DECREASED GLUCOSE; Start 09/12/18 at 23:45 Dextrose (D50w Syringe) 50 ml Q15M PRN IV DECREASED GLUCOSE; Start 09/12/18 at 23:45 Glucagon (Glucagen) 1 mg Q15M PRN IM DECREASED GLUCOSE; Start 09/12/18 at 23:45 Glucose (Glutose) 15 gm Q15M PRN BUCCAL DECREASED GLUCOSE; Start 09/12/18 at 23:45 Docusate Sodium (Colace Liquid Cup) 100 mg Q12 PRN GTB constipation Last administered on 09/13/18at 05:17; Admin Dose 100 MG; Start 09/13/18 at 05:30 SANDRA VARGAS MD September 13, 2018 16:30
[2018-09-13] MEDS: METOCLOPRAMIDE 10 MG INJ IV SCH (17:23)
--- NOTE | 2018-09-13 18:26 | CONS ---
DATE OF ADMISSION: 09/12/2018 DATE OF CONSULTATION: TYPE OF CONSULTATION: Gastroenterology. HISTORY OF PRESENT ILLNESS: The patient is a 73-year-old female with a history of end-stage renal di sease who comes to the ER complaining of coffee-ground colored emesis. The [facility] is a resident of [facility]. No nausea, no vomiting in the hospital. The patient speaks Polish. She does complai n of epigastric discomfort and she is hungry. 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 ALLERGIES: NONE. PAST MEDICAL HISTORY: Renal failure. The patient is on dialysis, history of hypertension, CHF, GERD , anemia, hyperlipidemia and non-STEMI. SOCIAL HISTORY: Does not smoke or drink. PHYSICAL EXAMINATION GENERAL: Cachectic, not in distress. VITAL SIGNS: Stable. HEENT: Unremarkable. NECK: Supple. No thyromegaly, no lymphadenopathy. CARDIOVASCULAR: No murmur, gallop or click. LUNGS: Clear. ABDOMEN: Benign. EXTREMITIES: No edema. CENTRAL NERVOUS SYSTEM: Grossly within normal limits. LABORATORY DATA: Hematocrit is 29.9, WBC is 11.5, platelet count is 570. Glucose is 221. Alkaline phosphatase is elevated at 182. Creatinine is 4.81. IMPRESSION: 1. Upper gastrointestinal bleeding as witnessed by the staff nurse in the [facility]. 2. Dysphagia, status post G-tube. 3. End-stage renal disease. 4. Anemia. 5. Hypertension. 6. Osteoarthritis. 7. Atherosclerotic heart disease. PLAN: At this point, is continue PPI. We will resume feeding and hopefully can schedule for EGD renate orrow. In the interim, we will monitor H and H. Dictated By: STU ALEJO/NTS Conf#: [id number] DID#: [id number] CC: MICHELLE MCDANIEL MD;*EndCC*
[2018-09-13] MEDS: DEXTROSE 5%-0.45% NACL 1,000 ML IV SCH ×2 (23:03)
[2018-09-14] VITALS (10 sets, daily range): BP systolic 103–179; BP diastolic 50–75; PULSE 70–88; RESP 16–17
[2018-09-14] MEDS: INSULIN GLARGINE [LANTus] (100 UNITS/ML) SYG SC SCH ×2 (00:29→20:27)
[2018-09-14] MEDS: METOCLOPRAMIDE 10 MG INJ IV SCH ×5 (00:30→23:53)
[2018-09-14] MEDS: PANTOPRAZOLE 40 MG INJ IV SCH ×3 (00:30→20:25)
[2018-09-14] MEDS: INSULIN ASPART [NOVOLOG] 3 ML PEN SC SCH ×4 (00:37→17:34)
[2018-09-14] MEDS: AMLODIPINE 10 MG TAB GTB SCH (08:57)
[2018-09-14] MEDS: FERROUS SULFATE 60 MG/ML 5ML CUP GTB SCH (08:57)
[2018-09-14] MEDS: LOSARTAN 25 MG TAB GTB SCH (08:57)
[2018-09-14] MEDS: MULTIVIT/CA CARB/B CMPLX/FA TAB GTB SCH (08:58)
[2018-09-14] MEDS: POTASSIUM CHLORIDE 100 ML IVPB SCH ×2 (11:37→12:00)
--- NOTE | 2018-09-14 14:46 | PN ---
Date/Time of Note Date/Time of Note DATE: 09/14/18 TIME: 14:43 Assessment/Plan VTE Prophylaxis Risk score (from Ns)>0 risk: 3 SCD applied (from [facility] [place]): No SCD contraindicated: low risk/ambulating Pharmacological prophylaxis: NA/contraindicated Pharm contraindication: low risk/ambulating Lines/Catheters IV C[facility]ter Type (from [facility] Saline Lock Urinary Cath still in place: No Assessment/Plan Assessment/Plan ssessment/Plan MPRESSION: 1. Upper gastrointestinal bleeding as witnessed by the staff nurse in the senior care. HB 8.2 TODAY 2. Dysphagia, status post G-tube. 3. End-stage renal disease. on HD 4. Anemia. 5. Hypertension. 6. Osteoarthritis. 7. Atherosclerotic heart disease. plan - HD MWF - EGD today - Norvasc and losartn on hold as NPO, CW IV hydralazine prn - cw PPI/Reglan - G tube feeding on hold Result Diagram: 09/13/18 2214 09/13/18 2214 Results 24hrs Laboratory Tests Test 09/13/18 17:26 09/13/18 22:14 09/14/18 00:26 09/14/18 05:33 Bedside Glucose 214 211 165 White Blood Count 5.6 # Red Blood Count 2.76 L Hemoglobin 8.3 L Hematocrit 26.3 L Mean Corpuscular 95.3 Volume Mean Corpuscular 30.1 Hemoglobin Mean Corpuscular 31.6 L Hemoglobin Concent Red Cell 15.6 H Distribution Width Platelet Count 470 H Mean Platelet Volume 9.0 Immature 0.200 Granulocytes % Neutrophils % 75.7 Lymphocytes % 15.1 Monocytes % 6.5 Eosinophils % 1.8 Basophils % 0.7 Nucleated Red Blood 0.0 Cells % Immature 0.010 Granulocytes # Neutrophils # 4.2 Lymphocytes # 0.8 Monocytes # 0.4 Eosinophils # 0.1 Basophils # 0.0 Nucleated Red Blood 0.0 Cells # Sodium Level 134 L Potassium Level 3.2 L Chloride Level 90 L Carbon Dioxide Level 29 Anion Gap 15 H Blood Urea Nitrogen 75 H Creatinine 6.00 H Est Glomerular Filtrat Rate mL/min Glucose Level 266 H Calcium Level 8.0 L Total Bilirubin 0.2 Direct Bilirubin 0.00 Indirect Bilirubin 0.2 Aspartate Amino 20 Transf (AST/SGOT) Alanine 15 Aminotransferase (AL T/SGPT) Alkaline Phosphatase 106 Total Protein 6.4 # Albumin 3.5 Globulin 2.90 Albumin/Globulin 1.20 Ratio Hepatitis B Surface NEGATIVE Antigen Test 09/14/18 11:47 Bedside Glucose 213 Subjective 24 Hr Interval Summary Free Text/Dictation pt says she is hungry EGD today Exam/Review of Systems Exam Vitals Vital Signs Date Temp Pulse Resp B/P (MAP) Pulse Ox O2 O2 Flow FiO2 Time Delivery Rate 09/14/18 98.0 87 16 162/72 97 13:46 (102) 09/13/18 Room Air 22:20 09/13/18 2.0 22:00 Intake and Output 09/13/18 09/13/18 09/14/18 1515:00 23:00 07:00 IntakeIntake Total 400 ml OutputOutput Total 1500 ml BalanceBalance 400 ml -1500 ml Exam Exam Constitutional: alert Head: normocephalic Eyes: EOMI Neck: supple Respiratory: clear to auscultation, normal air movement Cardiovascular: regular rate and rhythm, nl pulses Gastrointestinal: soft, bowel sounds (+) g tube Extremities: No edema 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, nl mental status rue fistula +bruit/thrill Results Results 24hrs Laboratory Tests Test 09/13/18 17:26 09/13/18 22:14 09/14/18 00:26 09/14/18 05:33 Bedside Glucose 214 211 165 White Blood Count 5.6 # Red Blood Count 2.76 L Hemoglobin 8.3 L Hematocrit 26.3 L Mean Corpuscular 95.3 Volume Mean Corpuscular 30.1 Hemoglobin Mean Corpuscular 31.6 L Hemoglobin Concent Red Cell 15.6 H Distribution Width Platelet Count 470 H Mean Platelet Volume 9.0 Immature 0.200 Granulocytes % Neutrophils % 75.7 Lymphocytes % 15.1 Monocytes % 6.5 Eosinophils % 1.8 Basophils % 0.7 Nucleated Red Blood 0.0 Cells % Immature 0.010 Granulocytes # Neutrophils # 4.2 Lymphocytes # 0.8 Monocytes # 0.4 Eosinophils # 0.1 Basophils # 0.0 Nucleated Red Blood 0.0 Cells # Sodium Level 134 L Potassium Level 3.2 L Chloride Level 90 L Carbon Dioxide Level 29 Anion Gap 15 H Blood Urea Nitrogen 75 H Creatinine 6.00 H Est Glomerular Filtrat Rate mL/min Glucose Level 266 H Calcium Level 8.0 L Total Bilirubin 0.2 Direct Bilirubin 0.00 Indirect Bilirubin 0.2 Aspartate Amino 20 Transf (AST/SGOT) Alanine 15 Aminotransferase (AL T/SGPT) Alkaline Phosphatase 106 Total Protein 6.4 # Albumin 3.5 Globulin 2.90 Albumin/Globulin 1.20 Ratio Hepatitis B Surface NEGATIVE Antigen Test 09/14/18 11:47 Bedside Glucose 213 Medications Medication Current Medications Acetaminophen (Tylenol Tab) 1,000 mg Q6H PRN PO PAIN 4-6/10; Start 09/12/18 at 23:00 Acetaminophen (Tylenol Tab) 650 mg Q6H PRN GTB MILD PAIN LEVEL 1-3; Start 09/12/18 at 23:00 Amlodipine Besylate (Norvasc) 10 mg DAILY GTB Last administered on 09/13/18 09:06; Admin Dose 10 MG; Start 09/13/18 at 09:00 Ferrous Sulfate (Feosol Liquid Cup) 330 mg DAILY GTB Last administered on 09/13/18 09:06; Admin Dose 330 MG; Start 09/13/18 at 09:00 Losartan Potassium (Cozaar) 25 mg DAILY GTB Last administered on 09/13/18 09:06; Admin Dose 25 MG; Start 09/13/18 at 09:00 Multivit/Ca Carb/ B Cmplx/FA/Prenat (Lydia-Kali) 1 tab DAILY GTB Last administered on 09/13/18 09:06; Admin Dose 1 TAB; Start 09/13/18 at 09:00 Tramadol HCl (Ultram) 50 mg Q6H PRN GTB PAIN 7-9/10 Last administered on 09/13/18 12:26; Admin Dose 50 MG; Start 09/12/18 at 23:00 Dextrose/Sodium Chloride 1,000 ml @ 40 mls/hr Q24H IV Last administered on 09/13/18 00:00; Admin Dose 40 MLS/HR; Start 09/12/18 at 23:03 IV Flush (NS 3 ml) 3 ml PER PROTOCOL IV ; Start 09/12/18 at 23:30 Ondansetron HCl (Zofran Inj) 4 mg Q6H PRN IV NAUSEA/VOMITING Last administered on 09/13/18 09:14; Admin Dose 4 MG; Start 09/12/18 at 23:30 Acetaminophen/ Hydrocodone Bitart ([place] (5/325)) 1 tab Q6H PRN PO .MOD PAIN 4- 6; Start 09/12/18 at 23:30 Bisacodyl (Dulcolax) 5 mg DAILY PRN PO .CONSTIPATION; Start 09/12/18 at 23:30 Hydralazine HCl (Apresoline) 10 mg Q6H PRN IV ELEVATED BLOOD PRESSURE Last administered on 09/14/18at 09:06; Admin Dose 10 MG; Start 09/12/18 at 23:30 Insulin Aspart (Novolog Insulin Pen) NOVOLOG *MILD* ALGORI... Q6 SC Last administered on 09/14/18at 12:03; Admin Dose 2 UNIT; Start 09/13/18 at 00:00 Miscellaneous Information 1 ea NOTE XX ; Start 09/12/18 at 23:45 Glucose (Glutose) 15 gm Q15M PRN PO DECREASED GLUCOSE; Start 09/12/18 at 23:45 Glucose (Glutose) 22.5 gm Q15M PRN PO DECREASED GLUCOSE; Start 09/12/18 at 23:45 Dextrose (D50w Syringe) 25 ml Q15M PRN IV DECREASED GLUCOSE; Start 09/12/18 at 23:45 Dextrose (D50w Syringe) 50 ml Q15M PRN IV DECREASED GLUCOSE; Start 09/12/18 at 23:45 Glucagon (Glucagen) 1 mg Q15M PRN IM DECREASED GLUCOSE; Start 09/12/18 at 23:45 Glucose (Glutose) 15 gm Q15M PRN BUCCAL DECREASED GLUCOSE; Start 09/12/18 at 23:45 Docusate Sodium (Colace Liquid Cup) 100 mg Q12 PRN GTB constipation Last administered on 09/13/18at 05:17; Admin Dose 100 MG; Start 09/13/18 at 05:30 Metoclopramide HCl (Reglan) 10 mg Q6 IV Last administered on 09/14/18at 11:37; Admin Dose 10 MG; Start 09/13/18 at 18:00 Pantoprazole (Protonix Iv) 40 mg BID IV Last administered on 09/14/18at 09:06; Admin Dose 40 MG; Start 09/13/18 at 21:00 Insulin Glargine (Lantus) 5 units DAILY@2000 SC Last administered on 09/14/18at 00:29; Admin Dose 5 UNITS; Start 09/13/18 at 20:00 SANDRA VARGAS MD September 14, 2018 14:46
[2018-09-14] MEDS: DEXTROSE 5%-0.45% NACL 1,000 ML IV SCH (17:35)
--- NOTE | 2018-09-14 19:35 | CONS ---
DATE OF ADMISSION: 09/12/2018 DATE OF CONSULTATION: HISTORY OF PRESENT ILLNESS: A 73-year-old female with a history of end-stage renal disease on dialys is, had a drop in hematocrit from 29 to 26, no obvious GI bleeding noted. OBJECTIVE: VITAL SIGNS: Stable. ABDOMEN: Benign. LUNGS: Clear. EXTREMITIES: No edema. CENTRAL NERVOUS SYSTEM: Grossly within normal limits. IMPRESSION: 1. Upper gastrointestinal bleeding. 2. Anemia. 3. Dysphagia, status post G-tube. 4. End-stage renal disease. 5. Hypertension. 6. Osteoarthritis. PLAN: To continue to monitor hematocrit, will proceed with EGD tomorrow. Continue with PPI. Dictated By: STU ROCKWELL MD PJ/NTS Conf#: [id number] DID#: [id number] CC: MICHELLE MCDANIEL MD;*EndCC*
[2018-09-15] VITALS (18 sets, daily range): BP systolic 93–172; BP diastolic 39–74; PULSE 77–98; RESP 17–36
[2018-09-15] MEDS: INSULIN ASPART [NOVOLOG] 3 ML PEN SC SCH ×6 (01:24→20:19)
[2018-09-15] MEDS: METOCLOPRAMIDE 10 MG INJ IV SCH ×3 (05:34→17:56)
[2018-09-15] MEDS: FERROUS SULFATE 60 MG/ML 5ML CUP GTB SCH (09:00)
[2018-09-15] MEDS: MULTIVIT/CA CARB/B CMPLX/FA TAB GTB SCH (09:00)
[2018-09-15] MEDS: PANTOPRAZOLE 40 MG INJ IV SCH ×2 (09:00→20:17)
[2018-09-15] MEDS: LOSARTAN 25 MG TAB GTB SCH (09:00)
[2018-09-15] MEDS: AMLODIPINE 10 MG TAB GTB SCH (09:00)
--- NOTE | 2018-09-15 10:41 | PN ---
Date/Time of Note Date/Time of Note DATE: 09/15/18 TIME: 10:39 Assessment/Plan VTE Prophylaxis Risk score (from Ns)>0 risk: 4 SCD applied (from [facility] [place]): No SCD contraindicated: low risk/ambulating Pharmacological prophylaxis: NA/contraindicated Pharm contraindication: low risk/ambulating Lines/Catheters IV C[facility]ter Type (from [facility] Saline Lock Urinary Cath still in place: No Assessment/Plan Assessment/Plan ssessment/Plan MPRESSION: 1. Upper gastrointestinal bleeding as witnessed by the staff nurse in the snf. HB 8.2 TODAY>9.2 2. Dysphagia, status post G-tube. 3. End-stage renal disease. on HD 4. Anemia. 5. Hypertension. 6. Osteoarthritis. 7. Atherosclerotic heart disease. plan - HD MWF, hd today - EGD today, HB 9.2 TODAY - CW Epogen - Norvasc and losartn on hold as NPO, CW IV hydralazine prn - cw PPI/Reglan -cw lantus 5 - G tube feeding on hold for EGD Result Diagram: 09/15/1862609/15/18626 Results 24hrs Laboratory Tests Test 09/14/18 11:47 09/14/18 17:32 09/14/18 20:22 09/15/18 01:16 Bedside Glucose 213 164 263 H 238 H Test 09/15/18 05:29 09/15/18 06:27 09/15/18 07:56 Bedside Glucose 92 101 White Blood Count 6.3 Red Blood Count 3.05 L Hemoglobin 9.2 L Hematocrit 30.1 L Mean Corpuscular 98.7 Volume Mean Corpuscular 30.2 Hemoglobin Mean Corpuscular 30.6 L Hemoglobin Concent Red Cell 15.5 H Distribution Width Platelet Count 513 H Mean Platelet Volume 9.2 Immature 0.200 Granulocytes % Neutrophils % 70.5 Lymphocytes % 14.9 L Monocytes % 10.7 Eosinophils % 2.7 Basophils % 1.0 Nucleated Red Blood 0.0 Cells % Immature 0.010 Granulocytes # Neutrophils # 4.4 Lymphocytes # 0.9 Monocytes # 0.7 Eosinophils # 0.2 Basophils # 0.1 Nucleated Red Blood 0.0 Cells # Sodium Level 139 Potassium Level 3.9 Chloride Level 102 # Carbon Dioxide Level 26 Anion Gap 11 Blood Urea Nitrogen 48 #H Creatinine 4.70 #H Est Glomerular Filtrat Rate mL/min Glucose Level 92 # Calcium Level 8.4 Phosphorus Level 5.2 H Magnesium Level 2.6 H Subjective 24 Hr Interval Summary Free Text/Dictation EGD was not done yesterday. Scheduled today No nausea vomiting noted Exam/Review of Systems Exam Vitals Vital Signs Date Temp Pulse Resp B/P (MAP) Pulse Ox O2 O2 Flow FiO2 Time Delivery Rate 09/15/18 98.4 82 18 168/74 98 Room Air 08:18 (105) 09/13/18 2.0 22:00 Intake and Output 09/14/18 09/14/18 09/15/18 1515:00 23:00 07:00 IntakeIntake Total 100 ml 680 ml 460 ml BalanceBalance 100 ml 680 ml 460 ml Exam Constitutional: alert Head: normocephalic Eyes: EOMI Neck: supple Respiratory: clear to auscultation, normal air movement Cardiovascular: regular rate and rhythm, nl pulses Gastrointestinal: soft, bowel sounds (+) g tube Extremities: No edema 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, nl mental status rue fistula +bruit/thrill Results Results 24hrs Laboratory Tests Test 09/14/18 11:47 09/14/18 17:32 09/14/18 20:22 09/15/18 01:16 Bedside Glucose 213 164 263 H 238 H Test 09/15/18 05:29 09/15/18 06:27 09/15/18 07:56 Bedside Glucose 92 101 White Blood Count 6.3 Red Blood Count 3.05 L Hemoglobin 9.2 L Hematocrit 30.1 L Mean Corpuscular 98.7 Volume Mean Corpuscular 30.2 Hemoglobin Mean Corpuscular 30.6 L Hemoglobin Concent Red Cell 15.5 H Distribution Width Platelet Count 513 H Mean Platelet Volume 9.2 Immature 0.200 Granulocytes % Neutrophils % 70.5 Lymphocytes % 14.9 L Monocytes % 10.7 Eosinophils % 2.7 Basophils % 1.0 Nucleated Red Blood 0.0 Cells % Immature 0.010 Granulocytes # Neutrophils # 4.4 Lymphocytes # 0.9 Monocytes # 0.7 Eosinophils # 0.2 Basophils # 0.1 Nucleated Red Blood 0.0 Cells # Sodium Level 139 Potassium Level 3.9 Chloride Level 102 # Carbon Dioxide Level 26 Anion Gap 11 Blood Urea Nitrogen 48 #H Creatinine 4.70 #H Est Glomerular Filtrat Rate mL/min Glucose Level 92 # Calcium Level 8.4 Phosphorus Level 5.2 H Magnesium Level 2.6 H Medications Medication Current Medications Acetaminophen (Tylenol Tab) 1,000 mg Q6H PRN PO PAIN 4-6/10; Start 09/12/18 at 23:00 Acetaminophen (Tylenol Tab) 650 mg Q6H PRN GTB MILD PAIN LEVEL 1-3; Start 09/12/18 at 23:00 Amlodipine Besylate (Norvasc) 10 mg DAILY GTB Last administered on 09/13/18 09:06; Admin Dose 10 MG; Start 09/13/18 at 09:00 Ferrous Sulfate (Feosol Liquid Cup) 330 mg DAILY GTB Last administered on 09/13/18 09:06; Admin Dose 330 MG; Start 09/13/18 at 09:00 Losartan Potassium (Cozaar) 25 mg DAILY GTB Last administered on 09/13/18 09:06; Admin Dose 25 MG; Start 09/13/18 at 09:00 Multivit/Ca Carb/ B Cmplx/FA/Prenat (Lydia-Kali) 1 tab DAILY GTB Last administered on 09/13/18 09:06; Admin Dose 1 TAB; Start 09/13/18 at 09:00 Tramadol HCl (Ultram) 50 mg Q6H PRN GTB PAIN 7-910 Last administered on 09/13/18 12:26; Admin Dose 50 MG; Start 09/12/18 at 23:00 Dextrose/Sodium Chloride 1,000 ml @ 40 mls/hr Q24H IV Last administered on 09/14/18 17:35; Admin Dose 40 MLS/HR; Start 09/12/18 at 23:03 IV Flush (NS 3 ml) 3 ml PER PROTOCOL IV ; Start 09/12/18 at 23:30 Ondansetron HCl (Zofran Inj) 4 mg Q6H PRN IV NAUSEA/VOMITING Last administered on 09/13/18 09:14; Admin Dose 4 MG; Start 09/12/18 at 23:30 Acetaminophen/ Hydrocodone Bitart ([place] (5/325)) 1 tab Q6H PRN PO .MOD PAIN 4- 6; Start 09/12/18 at 23:30 Bisacodyl (Dulcolax) 5 mg DAILY PRN PO .CONSTIPATION; Start 09/12/18 at 23:30 Hydralazine HCl (Apresoline) 10 mg Q6H PRN IV ELEVATED BLOOD PRESSURE Last administered on 09/14/18at 09:06; Admin Dose 10 MG; Start 09/12/18 at 23:30 Miscellaneous Information 1 ea NOTE XX ; Start 09/12/18 at 23:45 Glucose (Glutose) 15 gm Q15M PRN PO DECREASED GLUCOSE; Start 09/12/18 at 23:45 Glucose (Glutose) 22.5 gm Q15M PRN PO DECREASED GLUCOSE; Start 09/12/18 at 23:45 Dextrose (D50w Syringe) 25 ml Q15M PRN IV DECREASED GLUCOSE; Start 09/12/18 at 23:45 Dextrose (D50w Syringe) 50 ml Q15M PRN IV DECREASED GLUCOSE; Start 09/12/18 at 23:45 Glucagon (Glucagen) 1 mg Q15M PRN IM DECREASED GLUCOSE; Start 09/12/18 at 23:45 Glucose (Glutose) 15 gm Q15M PRN BUCCAL DECREASED GLUCOSE; Start 09/12/18 at 23:45 Docusate Sodium (Colace Liquid Cup) 100 mg Q12 PRN GTB constipation Last administered on 09/13/18at 05:17; Admin Dose 100 MG; Start 09/13/18 at 05:30 Metoclopramide HCl (Reglan) 10 mg Q6 IV Last administered on 09/15/18at 05:34; Admin Dose 10 MG; Start 09/13/18 at 18:00 Pantoprazole (Protonix Iv) 40 mg BID IV Last administered on 09/14/18at 20:25; Admin Dose 40 MG; Start 09/13/18 at 21:00 Insulin Glargine (Lantus) 5 units DAILY@2000 SC Last administered on 09/14/18at 20:27; Admin Dose 5 UNITS; Start 09/13/18 at 20:00 Epoetin [place]-epbx (Retacrit (Esrd)) 4,000 unit MoWeFr@1700 SC ; Start 09/15/18 at 17:00 Insulin Aspart (Novolog Insulin Pen) NOVOLOG *MILD* ALGORI... Q4 SC Last administered on 09/15/18at 01:24; Admin Dose 3 UNIT; Start 09/15/18 at 01:00 SANDRA VARGAS MD September 15, 2018 10:41
--- NOTE | 2018-09-15 12:47 | PREAC ---
Date/Time of Note Date/Time of Note DATE: 09/15/18 TIME: 12:41 Anesthesia Eval and Record Evaluation Time Pre-Procedure Interview DATE: 09/15/18 TIME: 12:41 Age 73 Sex female NPO: 8 hrs Preoperative diagnosis GI Bleeding Planned procedure EGD Past Medical History Past Medical History: Includes Cardio: HTN, Dyslipidemia, CHF Musculoskeletal: Osteoarthritis Renal: ESRD on dialysis GI: GERD Heme: Anemia Surgery & Anesthesia Issues No known issue Meds Anticoagulation: No Beta Julia within 24 hr: No Reason Beta Julia not given: Pt. not on B-Julia Reported Medications Multivit/Ca Carb/B Cmplx/Fa* (Lydia-Kali*) 1 Tab Tab, 1 TAB G-TUBE DAILY, TAB 09/12/18 Cran/Vitc/Mannose/Inulin/Brom (Uti-Stat Liquid) 3,875 Mg/30 Ml Liquid, 30 ML GTB DAILY 09/12/18 Acetaminophen* (Acetaminophen*) 500 MG Extra Strength Tablet, 1000 MG GTB Q6H PRN for PAIN 4-10/04, TAB 09/12/18 Acetaminophen* (Tylenol*) 325 Mg Tablet, 650 MG GTB Q6H PRN for MILD PAIN LEVEL 1-3, TAB 09/12/18 Tramadol Hcl* (Ultram*) 50 Mg Tablet, 50 MG GTB Q6H PRN for PAIN 7-910, TAB 09/12/18 Multivit/Ca Carb/B Cmplx/Fa* (Lydia-Kali*) 1 Tab Tab, 1 TAB GTB DAILY, TAB 09/12/18 Metoclopramide* (Reglan*) 5 Mg Tablet, 5 MG GTB BID, TAB 09/12/18 Amino Acids/Protein Hydrolys (PRO-STAT LIQUID) 30 Ml Liquid.pkt, 30 ML GTB DAILY 09/12/18 Hydrocodone/Acetaminophen ([place] 5-325 Tablet) 1 Each Tablet, 1 EACH GTB Q12H, TAB 09/12/18 Nitroglycerin* (Nitroglycerin* SL) 0.4 Mg Tab.subl, 0.4 MG SL Q5MIN PRN for CHEST PAIN, BOTTLE 09/12/18 Losartan Potassium* (Losartan Potassium*) 25 Mg Tablet, 25 MG GTB DAILY, TAB HOLD IF SBP<110 OR HR<60 09/12/18 Lansoprazole* (Lansoprazole*) 30 Mg Capsule.dr, 30 MG GTB DAILY, CAP 09/12/18 Ferrous Sulfate* (Ferrous Sulfate*) 220 Mg/5 Ml Solution, 7.5 ML GTB DAILY, ML 09/12/18 Cranberry Extract (Cranberry) 425 Mg Capsule, 425 MG GTB DAILY, CAP 09/12/18 Docusate Sodium* (Colace*) 100 Mg Capsule, 200 MG GTB QHS, #30 CAP 09/12/18 Amlodipine Besylate* (Amlodipine Besylate*) 10 Mg Tablet, 10 MG GTB DAILY, #30 TAB HOLD IF SBP<110 OR HR<60 09/12/18 Discontinued Reported Medications Lidocaine (Lidocare) 1 Each Adh..patch, 1 EACH TP DAILY TO LEFT THIGH 01/12/18 Multivit &Minerals/Ferrous Fum (MULTIVITAMIN LIQUID) 9 Mg/15 Ml Liquid, 5 ML GTB DAILY 01/12/18 Polyethylene Glycol* (Miralax*) 17 Gm Powd.pack, 17 GM GTB NEEDED, #30 PACKET 01/12/18 Enoxaparin Sodium* (Lovenox*) 30 Mg/0.3 Ml Disp.syrin, 30 MG SQ DAILY, SYR 01/12/18 Ondansetron Hcl* (Zofran*) 4 Mg Tab, 4 MG GTB Q6H PRN for NAUSEA AND OR VOMITING, TAB 01/12/18 Ascorbic Acid (Vitamin C) 500 Mg Tab, 500 MG GTB BID, TAB 01/12/18 Cran/Vitc/Mannose/Inulin/Brom (Uti-Stat Liquid) 3,875 Mg/30 Ml Liquid, 30 MG GTB DAILY 01/12/18 Lansoprazole* (Lansoprazole*) 30 Mg Capsule.dr, 30 MG GTB DAILY, CAP 01/12/18 Acetaminophen* (Tylenol*) 325 Mg Tablet, 650 MG GTB Q4H PRN for MILD PAIN LEVEL 1-3, TAB 01/12/18 Cranberry Extract (Cranberry) 425 Mg Capsule, 425 MG GTB DAILY, CAP 01/12/18 Losartan Potassium* (Losartan Potassium*) 25 Mg Tablet, 25 MG GTB DAILY, TAB HOLD IF SBP BELOW 110 OR HR BELOW 60 01/12/18 Acetaminophen* (Tylenol*) 500 Mg Tab, 1000 MG GTB Q4H PRN for PAIN LEVEL 4-6/10, TAB 10/02/17 Docusate Sodium* (Colace*) 100 Mg Capsule, 200 MG GTB QHS, #60 CAP 10/02/17 Multivit/Ca Carb/B Cmplx/Fa* (Lydia-Kali*) 1 Tab Tab, 1 TAB GTB DAILY, TAB 05/29/17 Amlodipine Besylate* (Amlodipine Besylate*) 10 Mg Tablet, 10 MG GTB DAILY, #30 TAB HOLD FOR SBP BELOW 110 OR HR BELOW 60 05/29/17 Current Medications Acetaminophen (Tylenol Tab) 1,000 mg Q6H PRN PO PAIN 4-610; Start 09/12/18 at 23:00 Acetaminophen (Tylenol Tab) 650 mg Q6H PRN GTB MILD PAIN LEVEL 1-3; Start 09/12/18 at 23:00 Amlodipine Besylate (Norvasc) 10 mg DAILY GTB Last administered on 09/13/18 09:06; Admin Dose 10 MG; Start 09/13/18 at 09:00 Ferrous Sulfate (Feosol Liquid Cup) 330 mg DAILY GTB Last administered on 09/13/18 09:06; Admin Dose 330 MG; Start 09/13/18 at 09:00 Losartan Potassium (Cozaar) 25 mg DAILY GTB Last administered on 09/13/18 09:06; Admin Dose 25 MG; Start 09/13/18 at 09:00 Multivit/Ca Carb/ B Cmplx/FA/Prenat (Lydia-Kali) 1 tab DAILY GTB Last administered on 09/13/18 09:06; Admin Dose 1 TAB; Start 09/13/18 at 09:00 Tramadol HCl (Ultram) 50 mg Q6H PRN GTB PAIN 7-9/10 Last administered on 09/13/18at 12:26; Admin Dose 50 MG; Start 09/12/18 at 23:00 Dextrose/Sodium Chloride 1,000 ml @ 40 mls/hr Q24H IV Last administered on 09/14/18at 17:35; Admin Dose 40 MLS/HR; Start 09/12/18 at 23:03 IV Flush (NS 3 ml) 3 ml PER PROTOCOL IV ; Start 09/12/18 at 23:30 Ondansetron HCl (Zofran Inj) 4 mg Q6H PRN IV NAUSEA/VOMITING Last administered on 09/13/18at 09:14; Admin Dose 4 MG; Start 09/12/18 at 23:30 Acetaminophen/ Hydrocodone Bitart ([place] (5/325)) 1 tab Q6H PRN PO .MOD PAIN 4- 6; Start 09/12/18 at 23:30 Bisacodyl (Dulcolax) 5 mg DAILY PRN PO .CONSTIPATION; Start 09/12/18 at 23:30 Hydralazine HCl (Apresoline) 10 mg Q6H PRN IV ELEVATED BLOOD PRESSURE Last administered on 09/14/18 09:06; Admin Dose 10 MG; Start 09/12/18 at 23:30 Miscellaneous Information 1 ea NOTE XX ; Start 09/12/18 at 23:45 Glucose (Glutose) 15 gm Q15M PRN PO DECREASED GLUCOSE; Start 09/12/18 at 23:45 Glucose (Glutose) 22.5 gm Q15M PRN PO DECREASED GLUCOSE; Start 09/12/18 at 23:45 Dextrose (D50w Syringe) 25 ml Q15M PRN IV DECREASED GLUCOSE; Start 09/12/18 at 23:45 Dextrose (D50w Syringe) 50 ml Q15M PRN IV DECREASED GLUCOSE; Start 09/12/18 at 23:45 Glucagon (Glucagen) 1 mg Q15M PRN IM DECREASED GLUCOSE; Start 09/12/18 at 23:45 Glucose (Glutose) 15 gm Q15M PRN BUCCAL DECREASED GLUCOSE; Start 09/12/18 at 23:45 Docusate Sodium (Colace Liquid Cup) 100 mg Q12 PRN GTB constipation Last administered on 09/13/18at 05:17; Admin Dose 100 MG; Start 09/13/18 at 05:30 Metoclopramide HCl (Reglan) 10 mg Q6 IV Last administered on 09/15/18at 05:34; Admin Dose 10 MG; Start 09/13/18 at 18:00 Pantoprazole (Protonix Iv) 40 mg BID IV Last administered on 09/14/18at 20:25; Admin Dose 40 MG; Start 09/13/18 at 21:00 Insulin Glargine (Lantus) 5 units DAILY@2000 SC Last administered on 09/14/18at 20:27; Admin Dose 5 UNITS; Start 09/13/18 at 20:00 Epoetin [place]-epbx (Retacrit (Esrd)) 4,000 unit MoWeFr@1700 SC ; Start 09/15/18 at 17:00 Insulin Aspart (Novolog Insulin Pen) NOVOLOG *MILD* ALGORI... Q4 SC Last administered on 09/15/18at 01:24; Admin Dose 3 UNIT; Start 09/15/18 at 01:00 Meds reviewed: Yes Allergies Coded Allergies: No Known Allergies (Verified Allergy, Unknown, 09/12/18) Allergies Reviewed: Yes Labs/Studies Labs Reviewed: Reviewed by anesthesiologist Result Diagram: 09/15/1827 09/15/1827 Laboratory Tests 09/15/18 06:27 test: N/A Studies: ECG (n/a), CXR (aortic arch atherosclerosis) Pre-procedure Exam Last vitals Vital Signs Date Temp Pulse Resp B/P (MAP) Pulse Ox O2 O2 Flow FiO2 Time Delivery Rate 09/15/18 Nasal 2.0 12:04 Cannula 09/15/18 98.4 82 18 168/74 98 08:18 (105) Airway: Adequate mouth opening, Adequate thyromental dist Mallampati: Mallampati II Teeth: Normal Lung: Normal Heart: Normal ASA Physical Status ASA physical status: 3 Emergency: None Planned Anesthetic General/MAC: MAC Planned Pain Management Parenteral pain med Pre-operative Attestations Prior to commencing anesthesia and surgery, the patient was re-evaluated, there was verification of: *The patient's identity *The results of appropriate recent lab work and preoperative vital signs *The above evaluation not changing prior to induction *Anesthetic plan, risk benefits, alternative and complications discussed with patient/family; questions answered; patient/family understands, accepts and wishes to proceed. ALLI HOFFMAN MD September 15, 2018 12:47
[2018-09-15] MEDS ORDERED: LABETALOL HCL 20MG INJ IV PRN (13:00)
[2018-09-15] MEDS ORDERED: ONDANSETRON 4 MG INJ IV PRN (13:00)
[2018-09-15] MEDS ORDERED: hydrALAzine 20 MG INJ IV PRN (13:00)
[2018-09-15] MEDS ORDERED: FENTAnyl 50 MCG/ML VIAL IV PRN (13:00)
[2018-09-15] MEDS ORDERED: HYDROmorphONE 1 MG/5 ML IV SYRINGE IV PRN (13:00)
--- NOTE | 2018-09-15 13:08 | PAC ---
Date/Time of Note Date/Time of Note DATE: 09/15/18 TIME: 13:08 Post-Anesthesia Notes Post-Anesthesia Note Last documented vital signs Vital Signs Date Temp Pulse Resp B/P (MAP) Pulse Ox O2 O2 Flow FiO2 Time Delivery Rate 09/15/18 Nasal 2.0 12:04 Cannula 09/15/18 98.4 82 18 168/74 100 face mask 13:10 (105) Activity: WNL Respiratory function: WNL Cardiovascular function: WNL Mental status: Baseline Pain reasonably controlled: Yes Hydration appropriate: Yes Nausea/Vomiting absent: Yes ALLI HOFFMAN MD September 15, 2018 13:08
[2018-09-15] MEDS ORDERED: PROPOFOL 20 ML ONE ×2 (13:09)
[2018-09-15] MEDS ORDERED: EPOETIN ALFA-EPBX (ESRD) 4,000 UNIT/ML VIAL SC SCH (17:00)
[2018-09-15] MEDS ORDERED: AL HYDROX/MG HYDROX/SIMETH 30 ML CUP PO PRN (20:00)
[2018-09-15] MEDS: INSULIN GLARGINE [LANTus] (100 UNITS/ML) SYG SC SCH (20:18)
[2018-09-16] VITALS (9 sets, daily range): BP systolic 105–167; BP diastolic 42–74; PULSE 81–86; RESP 16–18
[2018-09-16] MEDS: METOCLOPRAMIDE 10 MG INJ IV SCH ×4 (00:07→17:08)
[2018-09-16] MEDS: INSULIN ASPART [NOVOLOG] 3 ML PEN SC SCH ×3 (08:24→17:09)
[2018-09-16] MEDS: FERROUS SULFATE 60 MG/ML 5ML CUP GTB SCH (08:37)
[2018-09-16] MEDS: LOSARTAN 25 MG TAB GTB SCH (08:38)
[2018-09-16] MEDS: MULTIVIT/CA CARB/B CMPLX/FA TAB GTB SCH (08:38)
[2018-09-16] MEDS: PANTOPRAZOLE 40 MG INJ IV SCH (08:38)
[2018-09-16] MEDS: AMLODIPINE 10 MG TAB GTB SCH (08:38)
--- NOTE | 2018-09-16 09:23 | CONS ---
Assessment/Plan Assessment/Plan Assessment/Plan (Daily) IMPRESSION: 1. Upper gastrointestinal bleeding. Resolved. EGD showed thickened antral fold with erosion and gastritis, awaiting final path reports 2. Anemia. 3. Dysphagia, status post G-tube. 4. End-stage renal disease. 5. Hypertension. 6. Osteoarthritis. 7. Epigastric pain 80% improved Plan Awaiting for the final path report Continue PPI and Reglan Consultation Date/Type/Reason Admit Date/Time September 12, 2018 at 18:01 Initial Consult Date Date/Time of Note DATE: 09/16/18 TIME: 09:22 24 HR Interval Summary Constitutional: no complaints, improved Exam/Review of Systems Exam Vitals Vital Signs Date Temp Pulse Resp B/P (MAP) Pulse Ox O2 O2 Flow FiO2 Time Delivery Rate 09/16/18 99.0 84 16 167/74 98 Room Air 08:00 (105) 09/15/18 8.0 13:17 Intake and Output 09/15/18 09/15/18 09/16/18 1515:00 23:00 07:00 IntakeIntake Total 240 ml 500 ml 1382 ml OutputOutput Total 2400 ml BalanceBalance 240 ml 500 ml -1018 ml Constitutional: alert, oriented, well developed Psych: no complaints, nl mood/affect Head: normocephalic, atraumatic Eyes: nl conjunctiva, EOMI, nl lids, nl sclera, PERRL ENMT: nl external ears & nose, nl lips & teeth, nl nasal mucosa & septum Neck: supple, non-tender Respiratory: clear to auscultation, normal air movement Cardiovascular: regular rate and rhythm, nl pulses Gastrointestinal: soft, nl liver, spleen, non-tender Musculoskeletal: nl extremities to inspection, nl gait and stance Extremities: normal pulses Neurological: ICE SELLER II-XII intact, nl mental status, nl speech, nl strength Skin: nl turgor; No rash or lesions Lymph: nl lymph nodes Results Result Diagram: 09/16/18 0559 09/15/18 0627 Results 24hrs Laboratory Tests Test 09/15/18 17:49 09/15/18 20:14 09/16/18 02:04 09/16/18 05:59 Bedside Glucose 227 H 236 H 210 White Blood Count 5.7 Red Blood Count 3.01 L Hemoglobin 9.3 L Hematocrit 29.6 L Mean Corpuscular 98.3 Volume Mean Corpuscular 30.9 Hemoglobin Mean Corpuscular 31.4 L Hemoglobin Concent Red Cell 15.7 H Distribution Width Platelet Count 434 H Mean Platelet Volume 9.2 Immature 0.400 Granulocytes % Neutrophils % 72.1 Lymphocytes % 13.6 L Monocytes % 9.5 Eosinophils % 3.5 Basophils % 0.9 Nucleated Red Blood 0.0 Cells % Immature 0.020 Granulocytes # Neutrophils # 4.1 Lymphocytes # 0.8 Monocytes # 0.5 Eosinophils # 0.2 Basophils # 0.1 Nucleated Red Blood 0.0 Cells # Test 09/16/18 08:22 Bedside Glucose 260 H Medications Medication Current Medications Acetaminophen (Tylenol Tab) 1,000 mg Q6H PRN PO PAIN 4-6/10; Start 09/12/18 at 23:00 Acetaminophen (Tylenol Tab) 650 mg Q6H PRN GTB MILD PAIN LEVEL 1-3 Last admin istered on 09/15/18 20:27; Admin Dose 650 MG; Start 09/12/18 at 23:00 Amlodipine Besylate (Norvasc) 10 mg DAILY GTB Last administered on 09/16/18 08:38; Admin Dose 10 MG; Start 09/13/18 at 09:00 Ferrous Sulfate (Feosol Liquid Cup) 330 mg DAILY GTB Last administered on 09/16/18 08:37; Admin Dose 330 MG; Start 09/13/18 at 09:00 Losartan Potassium (Cozaar) 25 mg DAILY GTB Last administered on 09/16/18 08:38; Admin Dose 25 MG; Start 09/13/18 at 09:00 Multivit/Ca Carb/ B Cmplx/FA/Prenat (Lydia-Kali) 1 tab DAILY GTB Last administered on 09/16/18 08:38; Admin Dose 1 TAB; Start 09/13/18 at 09:00 Tramadol HCl (Ultram) 50 mg Q6H PRN GTB PAIN 7-9/10 Last administered on 09/13/18 12:26; Admin Dose 50 MG; Start 09/12/18 at 23:00 IV Flush (NS 3 ml) 3 ml PER PROTOCOL IV ; Start 09/12/18 at 23:30 Ondansetron HCl (Zofran Inj) 4 mg Q6H PRN IV NAUSEA/VOMITING Last administered on 09/13/18 09:14; Admin Dose 4 MG; Start 09/12/18 at 23:30 Acetaminophen/ Hydrocodone Bitart ([place] (5/325)) 1 tab Q6H PRN PO .MOD PAIN 4- 6; Start 09/12/18 at 23:30 Bisacodyl (Dulcolax) 5 mg DAILY PRN PO .CONSTIPATION; Start 09/12/18 at 23:30 Hydralazine HCl (Apresoline) 10 mg Q6H PRN IV ELEVATED BLOOD PRESSURE Last administered on 09/14/18at 09:06; Admin Dose 10 MG; Start 09/12/18 at 23:30 Miscellaneous Information 1 ea NOTE XX ; Start 09/12/18 at 23:45 Glucose (Glutose) 15 gm Q15M PRN PO DECREASED GLUCOSE; Start 09/12/18 at 23:45 Glucose (Glutose) 22.5 gm Q15M PRN PO DECREASED GLUCOSE; Start 09/12/18 at 23:45 Dextrose (D50w Syringe) 25 ml Q15M PRN IV DECREASED GLUCOSE; Start 09/12/18 at 23:45 Dextrose (D50w Syringe) 50 ml Q15M PRN IV DECREASED GLUCOSE; Start 09/12/18 at 23:45 Glucagon (Glucagen) 1 mg Q15M PRN IM DECREASED GLUCOSE; Start 09/12/18 at 23:45 Glucose (Glutose) 15 gm Q15M PRN BUCCAL DECREASED GLUCOSE; Start 09/12/18 at 23:45 Docusate Sodium (Colace Liquid Cup) 100 mg Q12 PRN GTB constipation Last administered on 09/13/18at 05:17; Admin Dose 100 MG; Start 09/13/18 at 05:30 Metoclopramide HCl (Reglan) 10 mg Q6 IV Last administered on 09/16/18 05:31; Admin Dose 10 MG; Start 09/13/18 at 18:00 Pantoprazole (Protonix Iv) 40 mg BID IV Last administered on 09/16/18at 08:38; Admin Dose 40 MG; Start 09/13/18 at 21:00 Insulin Glargine (Lantus) 5 units DAILY@2000 SC Last administered on 09/15/18at 20:18; Admin Dose 5 UNITS; Start 5/20/19 at 20:00 E[place]etin [place]-epbx (Retacrit (Esrd)) 4,000 unit MoWeFr@1700 SC Last administered on 09/16/18at 02:21; Admin Dose 4,000 UNIT; Start 09/15/18 at 17:00 Al Hydrox/Mg Hydrox/Simethicone (Mag-Al Plus) 30 ml Q6H PRN PO GASTROINTESTINAL UPSET; Start 09/15/18 at 20:00 Insulin Aspart (Novolog Insulin Pen) NOVOLOG *MILD* ALGORITHM WITH MEALS BEDTIME SC Last administered on 09/16/18at 08:24; Admin Dose 3 UNIT; Start 09/16/18 at 08:00 STU ROCKWELL MD September 16, 2018 09:23
--- NOTE | 2018-09-16 11:37 | DS ---
Date/Time of Note Date/Time of Note DATE: 09/16/18 TIME: 11:36 Discharge Summary Admission/Discharge Info Admit Date/Time September 12, 2018 at 18:01 Discharge Date/Time Patient Condition: Stable Consults [place], GI Procedures EGD Hospital Course The patient is a 73-year-old female with a history of end-stage renal disease who comes to the ER complaining of coffee-ground colored emesis. The patient is a resident of residential. No nausea, no vomiting in the hospital. The patient speaks Polish. She does complain of epigastric discomfort and she is hungry. 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 ALLERGIES: NONE. PAST MEDICAL HISTORY: Renal failure. The patient is on dialysis, history of hypertension, CHF, GERD, anemia, hyperlipidemia and non-STEMI. SOCIAL HISTORY: Does not smoke or drink. PHYSICAL EXAMINATION GENERAL: Cachectic, not in distress. VITAL SIGNS: Stable. HEENT: Unremarkable. NECK: Supple. No thyromegaly, no lymphadenopathy. CARDIOVASCULAR: No murmur, gallop or click. LUNGS: Clear. ABDOMEN: Benign. EXTREMITIES: No edema. CENTRAL NERVOUS SYSTEM: Grossly within normal limits. LABORATORY DATA: Hematocrit is 29.9, WBC is 11.5, platelet count is 570. Glucose is 221. Alkaline phosphatase is elevated at 182. Creatinine is 4.81. IMPRESSION: 1. Upper gastrointestinal bleeding as witnessed by the staff nurse in the residential. 2. Dysphagia, status post G-tube. 3. End-stage renal disease. 4. Anemia. 5. Hypertension. 6. Osteoarthritis. 7. Atherosclerotic heart disease. During hospitalization pt was placed on PPI. She had tube feeding until EGD by dr Medley was done. EGD showed gastritis. We followed dr Medley recommendations. Pt H and H. was monitored. She had regular HD and was provided with pain medication. BP was controlled. Pt pain was resolved and she was transferred to SNF with usual orders. Her condition was clinically improved and she reported no nausea, no bleeding, and felt better. Home Meds Reported Medications Multivit/Ca Carb/B Cmplx/Fa* (Lydia-Kali*) 1 Tab Tab, 1 TAB G-TUBE DAILY, TAB 09/12/18 Cran/Vitc/Mannose/Inulin/Brom (Uti-Stat Liquid) 3,875 Mg/30 Ml Liquid, 30 ML GTB DAILY 09/12/18 Acetaminophen* (Acetaminophen*) 500 MG Extra Strength Tablet, 1000 MG GTB Q6H PRN for PAIN 4-10/04, TAB 09/12/18 Acetaminophen* (Tylenol*) 325 Mg Tablet, 650 MG GTB Q6H PRN for MILD PAIN LEVEL 1-3, TAB 09/12/18 Tramadol Hcl* (Ultram*) 50 Mg Tablet, 50 MG GTB Q6H PRN for PAIN 7-01/04, TAB 09/12/18 Multivit/Ca Carb/B Cmplx/Fa* (Lydia-Kali*) 1 Tab Tab, 1 TAB GTB DAILY, TAB 09/12/18 Metoclopramide* (Reglan*) 5 Mg Tablet, 5 MG GTB BID, TAB 09/12/18 Amino Acids/Protein Hydrolys (PRO-STAT LIQUID) 30 Ml Liquid.pkt, 30 ML GTB DAILY 09/12/18 Hydrocodone/Acetaminophen ([place] 5-325 Tablet) 1 Each Tablet, 1 EACH GTB Q12H, TAB 09/12/18 Nitroglycerin* (Nitroglycerin* SL) 0.4 Mg Tab.subl, 0.4 MG SL Q5MIN PRN for CHEST PAIN, BOTTLE 09/12/18 Losartan Potassium* (Losartan Potassium*) 25 Mg Tablet, 25 MG GTB DAILY, TAB HOLD IF SBP<110 OR HR<60 09/12/18 Lansoprazole* (Lansoprazole*) 30 Mg Capsule.dr, 30 MG GTB DAILY, CAP 09/12/18 Ferrous Sulfate* (Ferrous Sulfate*) 220 Mg/5 Ml Solution, 7.5 ML GTB DAILY, ML 09/12/18 Cranberry Extract (Cranberry) 425 Mg Capsule, 425 MG GTB DAILY, CAP 09/12/18 Docusate Sodium* (Colace*) 100 Mg Capsule, 200 MG GTB QHS, #30 CAP 09/12/18 Amlodipine Besylate* (Amlodipine Besylate*) 10 Mg Tablet, 10 MG GTB DAILY, #30 TAB HOLD IF SBP<110 OR HR<60 09/12/18 Discontinued Reported Medications Lidocaine (Lidocare) 1 Each Adh..patch, 1 EACH TP DAILY TO LEFT THIGH 01/12/18 Multivit &Minerals/Ferrous Fum (MULTIVITAMIN LIQUID) 9 Mg/15 Ml Liquid, 5 ML GTB DAILY 01/12/18 Polyethylene Glycol* (Miralax*) 17 Gm Powd.pack, 17 GM GTB NEEDED, #30 PACKET 01/12/18 Enoxaparin Sodium* (Lovenox*) 30 Mg/0.3 Ml Disp.syrin, 30 MG SQ DAILY, SYR 01/12/18 Ondansetron Hcl* (Zofran*) 4 Mg Tab, 4 MG GTB Q6H PRN for NAUSEA AND OR VOMITING, TAB 01/12/18 Ascorbic Acid (Vitamin C) 500 Mg Tab, 500 MG GTB BID, TAB 01/12/18 Cran/Vitc/Mannose/Inulin/Brom (Uti-Stat Liquid) 3,875 Mg/30 Ml Liquid, 30 MG GTB DAILY 01/12/18 Lansoprazole* (Lansoprazole*) 30 Mg Capsule.dr, 30 MG GTB DAILY, CAP 01/12/18 Acetaminophen* (Tylenol*) 325 Mg Tablet, 650 MG GTB Q4H PRN for MILD PAIN LEVEL 1-3, TAB 01/12/18 Cranberry Extract (Cranberry) 425 Mg Capsule, 425 MG GTB DAILY, CAP 01/12/18 Losartan Potassium* (Losartan Potassium*) 25 Mg Tablet, 25 MG GTB DAILY, TAB HOLD IF SBP BELOW 110 OR HR BELOW 60 01/12/18 Acetaminophen* (Tylenol*) 500 Mg Tab, 1000 MG GTB Q4H PRN for PAIN LEVEL 4-610, TAB 10/02/17 Docusate Sodium* (Colace*) 100 Mg Capsule, 200 MG GTB QHS, #60 CAP 10/02/17 Multivit/Ca Carb/B Cmplx/Fa* (Lydia-Kail*) 1 Tab Tab, 1 TAB GTB DAILY, TAB 05/29/17 Amlodipine Besylate* (Amlodipine Besylate*) 10 Mg Tablet, 10 MG GTB DAILY, #30 TAB HOLD FOR SBP BELOW 110 OR HR BELOW 60 05/29/17 Primary Care Provider Not On Staff Doctor Pending Labs Laboratory Tests Test 09/15/18 17:49 09/15/18 20:14 09/16/18 02:04 09/16/18 05:59 Bedside 227 236 210 Glucose mg/dL (70-220) mg/dL (70-220) mg/dL (70-220) White Blood 5.7 Count 10^3/ul (4.8-1 0.8) Red Blood 3.01 Count 10^6/ul (4.20- 5.40) Hemoglobin 9.3 g/dl (12.0-16. 0) Hematocrit 29.6 % (37.0-47.0) Mean 98.3 Corpuscular fl (82.0-101.0 Volume ) Mean 30.9 Corpuscular pg (29.0-33.0) Hemoglobin Mean 31.4 Corpuscular g/dl (32.0-37. Hemoglobin Conc 0) ent Red Cell 15.7 Distribution % (11.5-14.5) Width Platelet Count 434 10^3/UL (140-4 15) Mean Platelet 9.2 Volume fl (7.4-10.4) Immature 0.400 Granulocytes % % (0.001-0.429 ) Neutrophils % 72.1 % (39.0-77.0) Lymphocytes % 13.6 % (15.0-51.0) Monocytes % 9.5 % (0.0-11.0) Eosinophils % 3.5 % (0.0-7.0) Basophils % 0.9 % (0.0-2.0) Nucleated Red 0.0 Blood Cells % /100WBC (0.0-0 .0) Immature 0.020 Granulocytes # 10^3/ul (0.0-0 .031) Neutrophils # 4.1 10^3/ul (1.6-7 .5) Lymphocytes # 0.8 10^3/ul (0.8-2 .9) Monocytes # 0.5 10^3/ul (0.3-0 .9) Eosinophils # 0.2 10^3/ul (0.0-0 .5) Basophils # 0.1 10^3/ul (0.0-0 .1) Nucleated Red 0.0 Blood Cells # 10^3/ul (0.0-0 .0) Test 09/16/18 08:22 Bedside 260 Glucose mg/dL (70-220) ERIK PERALES September 16, 2018 11:37
[2018-09-16] MEDS ORDERED: LANSOPRAZOLE 30 MG CAP GTB SCH (18:00)
== END 2018-09-16 17:32 | DRG 377 ==
LOC: E/R 14:32 → PP2 18:01
PROVIDERS: ADMIT Internal Medicine Nephrology; ATTEND Internal Medicine Nephrology
PROC: 0DB68ZX Excision of Stomach, Via Natural or Artificial Opening Endoscopic, Diagnostic (ICD-10-PCS; principal; 2018-09-15 13:00)
PROC: 0D20XYZ Change Other Device in Upper Intestinal Tract, External Approach (ICD-10-PCS; 2018-09-15 13:00)
DX: K92.2 Gastrointestinal hemorrhage, unspecified (principal); N18.6 End stage renal disease; G93.40 Encephalopathy, unspecified; I13.0 Hypertensive heart and chronic kidney disease with heart failure and stage 1 through stage 4 chronic kidney disease, or unspecified chronic kidney disease; I50.9 Heart failure, unspecified; R13.10 Dysphagia, unspecified; D64.9 Anemia, unspecified; F03.90 Unspecified dementia, unspecified severity, without behavioral disturbance, psychotic disturbance, mood disturbance, and anxiety; M19.90 Unspecified osteoarthritis, unspecified site; K21.9 Gastro-esophageal reflux disease without esophagitis; E78.5 Hyperlipidemia, unspecified; I25.10 Atherosclerotic heart disease of native coronary artery without angina pectoris; Z99.2 Dependence on renal dialysis; Z93.1 Gastrostomy status
CPT/HCPCS: 36415; 71045; 74176; 80048; 80053; 82962; 83690; 83735; 84100; 84484; 85025; 85610; 85730; 86850; 86900; 86901; 87081; 87340; 88305; 88312; 90935; 93005; 96374; C9113; J0360; J1815; J2405; J2765; J3480; J7030; J7042; Q5105

== ENCOUNTER 2019-02-21 19:47 | Inpatient (IN) | payer MEDICARE, BC ==
[~2019-02-21] VITALS: Ht 149.9 cm; Wt 63.5 kg
[~2019-02-21 19:47] MED LIST changes: +ACET-141 GTB; +AMIN30LI GTB; -ASC500 GTB; +ASPI-903 GTB; +BISA10SU55 RC; +CALC-459 GTB; +CALC1TAB79 GTB; +CALC600T24 PO; -ENOX30DI10 SQ; +FERR220S13 GTB; +GABA300C16 GTB; +HYDR-4011 GTB; +INSU100C3 SQ; +LATA2.5D2 LEFT EYE; -LIDO1ADH TP; +METO5TAB58 GTB; +MINE3.5O31 BOTH EYES; -MULT9LIQ4 GTB; +NA P133E39 RC; +NEPH G-TUBE; +NITR0.4T32 SL; +NOVO3I SC; -ONDA4TAB13 GTB; -POLY17PO6 GTB; +TRAM50TA GTB; -TYL500 GTB; +accucheck
[2019-02-22] VITALS (19 sets, daily range): BP systolic 103–151; BP diastolic 53–104; PULSE 68–98; RESP 18; Ht 149.9 cm; Wt 63.5 kg
[2019-02-22] MEDS ORDERED: ACETAMINOPHEN 325 MG TAB PO PRN
[2019-02-22] MEDS ORDERED: ONDANSETRON 4 MG INJ IV PRN
[2019-02-22] MEDS ORDERED: SOD CHLORIDE 0.9% 100 ML ONE (00:34)
[2019-02-22] MEDS ORDERED: IODIXANOL LOCM 100 ML BTL ONE (00:34)
[2019-02-22] MEDS ORDERED: ACETAMINOPHEN 650MG/20.3ML CUP GTB PRN (04:30)
[2019-02-22] MEDS ORDERED: NITROGLYCERIN (SL) 0.4 MG TAB SL PRN (05:00)
[2019-02-22] MEDS ORDERED: traMADol 50 MG TAB GTB PRN (05:00)
[2019-02-22] MEDS ORDERED: BISACODYL 10 MG SUPP PR PRN (05:00)
[2019-02-22] MEDS ORDERED: DEXTROSE 50% 50 ML SYRINGE IV PRN ×2 (05:00)
[2019-02-22] MEDS ORDERED: HYDROCODONE/APAP (5/325) TAB GTB SCH (05:00)
[2019-02-22] MEDS ORDERED: GLUCOSE GEL 15 GRAM TUBE BUCCAL PRN (05:00)
[2019-02-22] MEDS ORDERED: GLUCOSE GEL 15 GRAM TUBE PO PRN ×2 (05:00)
[2019-02-22] MEDS ORDERED: ACETAMINOPHEN 325 MG TAB GTB PRN (05:00)
[2019-02-22] MEDS ORDERED: GLUCAGON 1 MG INJ IM PRN (05:00)
[2019-02-22] MEDS: INSULIN ASPART [NOVOLOG] 3 ML PEN SC SCH ×3 (06:00→17:17)
[2019-02-22] MEDS ORDERED: hydrALAzine 20 MG INJ IV PRN (06:00)
[2019-02-22] MEDS: ALBUTEROL/IPRATROPIUM (NEB) 3 ML AMP HHN SCH ×3 (08:14→19:38)
[2019-02-22] MEDS: ASPIRIN 81 MG TAB GTB SCH (08:36)
[2019-02-22] MEDS: MULTIVIT/CA CARB/B CMPLX/FA TAB GTB SCH (08:36)
[2019-02-22] MEDS: METOCLOPRAMIDE 5 MG TAB GTB SCH ×2 (08:36→21:11)
[2019-02-22] MEDS: LOSARTAN 25 MG TAB GTB SCH ×2 (08:37→19:00)
[2019-02-22] MEDS: AMLODIPINE 10 MG TAB GTB SCH ×2 (08:37→19:00)
[2019-02-22] MEDS ORDERED: HYDROCODONE/APAP (5/325) TAB GTB PRN (17:00)
[2019-02-22] MEDS: OCULAR LUBRICANT 3.5 GM OPH OINT BOTH EYES SCH (21:00)
[2019-02-22] MEDS ORDERED: GABAPENTIN 300 MG CAP GTB SCH (21:00)
[2019-02-22] MEDS: DOCUSATE SODIUM 100 MG CAP PO SCH (21:11)
[2019-02-23] MEDS: LATANOPROST 0.005% 2.5 ML OPH LEFT EYE SCH ×2 (00:58→21:35)
[2019-02-23] MEDS: INSULIN ASPART [NOVOLOG] 3 ML PEN SC SCH ×5 (00:58→23:51)
[2019-02-23 03:33] VITALS: BP 108/59; PULSE 88; RESP 18
[2019-02-23 07:35] VITALS: BP 116/55; PULSE 87; RESP 18
[2019-02-23] MEDS: ALBUTEROL/IPRATROPIUM (NEB) 3 ML AMP HHN SCH ×3 (08:06→20:46)
[2019-02-23] MEDS: MULTIVIT/CA CARB/B CMPLX/FA TAB GTB SCH (08:13)
[2019-02-23] MEDS: AMLODIPINE 10 MG TAB GTB SCH (08:14)
[2019-02-23] MEDS: METOCLOPRAMIDE 5 MG TAB GTB SCH ×2 (08:14→21:34)
[2019-02-23] MEDS: LOSARTAN 25 MG TAB GTB SCH (08:14)
[2019-02-23] MEDS: ASPIRIN 81 MG TAB GTB SCH (08:14)
[2019-02-23] MEDS ORDERED: FLU VACC QS 2019-20 (6MOS UP) 0.5 ML SYG IM* ONE (09:00)
[2019-02-23 11:52] VITALS: BP 106/54; PULSE 88; RESP 18
[2019-02-23 15:18] VITALS: BP 131/60; PULSE 80; RESP 20
[2019-02-23 19:23] VITALS: BP 110/53; PULSE 76; RESP 21
[2019-02-23] MEDS: DOCUSATE SODIUM 100 MG CAP PO SCH (21:34)
[2019-02-23 23:35] VITALS: BP 116/56; PULSE 78; RESP 18
[2019-02-23] MEDS: OCULAR LUBRICANT 3.5 GM OPH OINT BOTH EYES SCH (23:40)
[2019-02-24] MEDS ORDERED: DEXTROSE 5%-0.45% NACL 1,000 ML IV SCH
[2019-02-24 03:40] VITALS: BP 141/68; PULSE 82; RESP 18
[2019-02-24] MEDS: INSULIN ASPART [NOVOLOG] 3 ML PEN SC SCH ×3 (05:55→17:32)
[2019-02-24 07:53] VITALS: BP 120/57; PULSE 83; RESP 20
[2019-02-24] MEDS: ALBUTEROL/IPRATROPIUM (NEB) 3 ML AMP HHN SCH ×3 (08:02→19:46)
[2019-02-24] MEDS: LOSARTAN 25 MG TAB GTB SCH (09:00)
[2019-02-24] MEDS: ASPIRIN 81 MG TAB GTB SCH (09:00)
[2019-02-24] MEDS: AMLODIPINE 10 MG TAB GTB SCH (09:00)
[2019-02-24] MEDS: MULTIVIT/CA CARB/B CMPLX/FA TAB GTB SCH (09:00)
[2019-02-24] MEDS: METOCLOPRAMIDE 5 MG TAB GTB SCH (09:07)
[2019-02-24] MEDS ORDERED: REGADENOSON 0.4 MG/5 ML SYG ONE (10:49)
[2019-02-24 14:02] VITALS: BP 131/69; PULSE 86; RESP 20
[2019-02-24 15:26] VITALS: BP 139/62; PULSE 86; RESP 20
[2019-02-24] MEDS ORDERED: ACCU-CHEK XX ONE (17:30)
[2019-02-24] MEDS ORDERED: INSULIN ASPART [NOVOLOG] 3 ML PEN SC ONE (17:30)
[2019-02-24 19:47] VITALS: BP 139/63; PULSE 82; RESP 21
== END 2019-02-24 20:40 | DRG 313 ==
LOC: E/R 19:47 → 6WM 23:36
PROVIDERS: ADMIT Internal Medicine Nephrology; ATTEND Internal Medicine Nephrology
PROC: 5A1D70Z Performance of Urinary Filtration, Intermittent, Less than 6 Hours Per Day (ICD-10-PCS; principal; 2019-02-22)
DX: R07.9 Chest pain, unspecified (principal); N18.6 End stage renal disease; I13.0 Hypertensive heart and chronic kidney disease with heart failure and stage 1 through stage 4 chronic kidney disease, or unspecified chronic kidney disease; I69.351 Hemiplegia and hemiparesis following cerebral infarction affecting right dominant side; J98.11 Atelectasis; I25.10 Atherosclerotic heart disease of native coronary artery without angina pectoris; I50.9 Heart failure, unspecified; E11.9 Type 2 diabetes mellitus without complications; Z99.2 Dependence on renal dialysis; K29.70 Gastritis, unspecified, without bleeding; E78.5 Hyperlipidemia, unspecified; R41.0 Disorientation, unspecified
CPT/HCPCS: 36415; 70450; 71045; 71275; 78452; 80048; 80053; 80061; 82550; 82553; 82962; 84484; 85025; 87340; 90686; 90935; 93005; 93017; 93306; 94640; 94664; A9500; A9505; J1815; J2785; J7042; Q9967